=== PATIENT | female | born 1935 | race Caucasian/White ===

== ENCOUNTER 2022-02-21 08:00 | Outpatient (CLI) | payer OTHER, SELFPAY ==
[2022-02-21 14:21] LABS: Chloride* 104 mmol/L (96-114); Potassium* 4.8 mmol/L (3.6-5.1); Sodium* 140 mmol/L (135-149)
[2022-02-21 14:24] LABS: Blood Urea Nitrogen* 28 mg/dL (7-30); Carbon Dioxide* 28 mmol/L (20-32); Cholesterol* 167 mg/dL (90-199); Creatinine* 0.8 mg/dL (0.5-1.5); Estimated Glomerular Filt Rate 73 ml/min; Glucose* 148 mg/dL (60-115)
[2022-02-21 14:25] LABS: Calcium* 9.4 mg/dL (8.4-10.6); HDL Cholesterol* 84 mg/dL (>=50); LDL Cholesterol Calculated 57 mg/dL (<100); Triglycerides* 130 mg/dL (40-149)
== END 2022-02-21 08:01 | disposition home or self-care (01) ==
LOC: LONREF 08:00
PROVIDERS: PCP Family Medicine; Visit Provider Family Medicine
DX: I10 Essential (primary) hypertension (principal); E78.5 Hyperlipidemia, unspecified; E03.9 Hypothyroidism, unspecified
CPT/HCPCS: 80048; 80061; 84443

== ENCOUNTER 2022-06-29 21:40 | Emergency (ER) | payer OTHER, SELFPAY ==
[2022-06-29 21:46] VITALS: BP 164/80; PULSE 64; RESP 16; TEMP 36.1; O2SAT 98
--- NOTE | 2022-06-29 21:50 | CRLHL7_ITS ---
For Patients: As a result of the Century Cures Act, medical imaging exams and procedure reports are released immediately into your electronic medical record. You may view this report before your referring provider. If you have questions, please contact your health care provider. INDICATION: Pain after fall. COMPARISON: None available. TECHNIQUE: The right shoulder was examined with AP internal and external rotation and outlet views for a total of three views using portable technique at 22 01 hours. FINDINGS: There is a comminuted, transverse, impacted fracture of the surgical neck of the humerus with approximately 50 percent medial displacement and 30 degrees anterior angulation of the major distal fracture fragment. There is anatomic alignment of the humeral head and glenoid. There is no sign of additional fracture or dislocation. 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 The visualized chest is clear. IMPRESSION: Acute, prominently displaced, moderately angulated, comminuted, transverse, impacted fracture of the surgical neck of the humerus. Dictated by Darrius Olivia MD @ 06/29/2022 10:42:12 PM (Electronically Signed)
--- NOTE | 2022-06-29 21:51 | ED.UPPEXIN ---
HPI - Extremity Injury (Upper) General Chief Complaint: Shoulder Injury/Pain Stated Complaint: fell in shower, think she broke her upper r arm. Time Seen by Provider: 06/29/22 21:42 History of Present Illness HPI narrative: Pt is an 86 year old woman who stumbled and fell in the shower tonight. Pt did not hit her head. Pt did injury her right shoulder. Pt is unable to lift her left arm. Pt has no pain in the right elbow or hand. No significant radicular pain. Pt states that the pain is moderate but she is very limited with movement of the right shoulder. No LOC. No skin tears. Pt otherwise feels well. Related Data Home Medications Medication Instructions Recorded Confirmed albuterol sulfate 90 mcg/actuation 2 puff inhalation Q4-6H PRN 11/29/21 02/20/22 aerosol inhaler (Ventolin HFA) aspirin 325 mg tablet 325 mg PO QDAY 11/29/21 02/20/22 blood glucose control, normal 11/29/21 02/20/22 (Accu-Chek SmartView Control Solution) blood sugar diagnostic (Accu-Chek 11/29/21 02/20/22 SmartView Test Strips) calcium carbonate 215 mg calcium 215 mg PO BID 11/29/21 02/20/22 (500 mg) chewable tablet (Antacid (calcium carbonate)) calcium carbonate 500 mg calcium 500 mg PO QDAY PRN 11/29/21 02/20/22 (1,250 mg) chewable tablet glucosamine-chondroitin 250 mg-200 2 tab PO DAILY 11/29/21 02/20/22 mg tablet (Osteo Bi-Flex) lancets (Accu-Chek Fastclix Lancet 11/29/21 02/20/22 Drum) meclizine 12.5 mg tablet 12.5 mg PO Q6H PRN 11/29/21 02/20/22 jlkgpjzh-dla-BL 200 mcg-vit K 15 1 tab PO QDAY 11/29/21 02/20/22 mcg-lycope 150 thq-kwrjzh-gaig tablet (Ocuvite Eye Plus Multi) omega 2-xts-fun-fish oil 1,200 mg 1 cap PO DAILY 11/29/21 02/20/22 (144 mg-216 mg) capsule (Fish Oil) Previous Rx's Medication Instructions Recorded levothyroxine 75 mcg tablet 75 mcg PO QDAY #90 tabs 11/29/21 (Synthroid) lisinopril 10 mg tablet 10 mg PO QDAY #90 tabs 11/29/21 sertraline 100 mg tablet 100 mg PO QDAY #90 tabs 11/29/21 diltiazem HCl 180 mg capsule,24 180 mg PO QDAY #90 caps 02/20/22 hr,extended release fluticasone propionate 110 2 puff inhalation BID #36 grams 02/20/22 mcg/actuation HFA aerosol inhaler (Flovent HFA) glipizide 10 mg tablet 10 mg PO QDAY #90 tabs 02/20/22 hydrochlorothiazide 25 mg tablet 25 mg PO QDAY #90 tabs 02/20/22 metformin 1,000 mg tablet 1,000 mg PO BID #180 tabs 02/20/22 nitroglycerin 0.4 mg sublingual 0.4 mg sublingual ONCE #25 tabs 04/11/22 tablet (Nitrostat) pioglitazone 15 mg tablet 15 mg PO QDAY #90 tabs 04/11/22 simvastatin 40 mg tablet 20 mg PO QPM #45 tabs 04/11/22 Allergies Allergy/AdvReac Type Severity Reaction Status Date / Time penicillin V Allergy Mild Hands and Verified 02/19/22 10:33 feet itchy,red Review of Systems Status of ROS: Reports: 10 or more systems reviewed and unremarkable except as noted in History and below [facility] Surgical History History of colonoscopy ?Z98.890 - Other specified postprocedural states (ICD-10) History of coronary artery stent placement (08/16/09) ?Z95.5 - Presence of coronary angioplasty implant and graft (ICD-10) Status post appendectomy (08/16/09) ?Z90.49 - Acquired absence of other specified parts of digestive tract (ICD-10) Status post cataract extraction ?Z98.49 - Cataract extraction status, unspecified eye (ICD-10) Status post nasal surgery (08/16/09) ?Z98.890 - Other specified postprocedural states (ICD-10) Family History Family/Other Colon cancer Social History Smoking Status: Never smoker How often do you have a drink containing alcohol: never AUDIT-C Alcohol total score: 0 Non-prescribed substance use: denies use service: No Exam Narrative: Exam Narrative: EXAM GENERAL: Patient appears comfortable and well. EYES: No scleral icterus. LYMPH: No supraclavicular or cervical lymphadenopathy. SKIN: Visible skin seen during exam normal or with benign process only. EXT: No dependent lower extremity pedal edema. Patient is inability to both passively and actively move the right shoulder. Pain noted inferior to the shoulder in the lateral deltoid region on the right. HEART: To her 6 systolic to her 6 diastolic murmur regular rate. LUNGS: Clear to auscultation bilaterally with no crackles or wheezes. ABD: Soft, non tender, non distended. PSYCH: Good eye contact, speech is not pressured. Const: Vital Signs, click to edit/add: Vital Signs - 24 hr 06/29/22 21:46 Temperature 97.0 F L Pulse Rate [Left P ulse Oximeter] 64 Respiratory Rate 16 Blood Pressure [Le ft Upper Arm] 164/80 H Pulse Oximetry 98 Oxygen Delivery Me thod Room Air Course Course Hospital Course: X ray of the right shoulder ordered. Reevaluation(s) Reevaluation #1: X ray upon my review shows a minimally displaced proximal humerus fracture Time: 22:12 Vital Signs Vital signs: Initial Vital Signs Temperature 97.0 F L 06/29/22 21:46 Temperature Source Temporal Artery Scan 06/29/22 21:46 Pulse Rate 64 06/29/22 21:46 Pulse Rhythm Regular 06/29/22 21:46 Respiratory Rate 16 06/29/22 21:46 Blood Pressure 164/80 H 06/29/22 21:46 Blood Pressure Mean 108 06/29/22 21:46 Blood Pressure Position Sitting 06/29/22 21:46 Pulse Oximetry 98 06/29/22 21:46 Oxygen Delivery Method Room Air 06/29/22 21:46 Vital Signs Temperature 97.0 F L 06/29/22 21:46 Pulse Rate 64 06/29/22 21:46 Respiratory Rate 16 06/29/22 21:46 Blood Pressure 164/80 H 03/31/23 21:46 Pulse Oximetry 98 03/31/23 21:46 Oxygen Delivery Method Room Air 06/29/22 21:46 Temperature 97.0 F L 06/29/22 21:46 Pulse Rate 64 06/29/22 21:46 Respiratory Rate 16 06/29/22 21:46 Blood Pressure 164/80 H 06/29/22 21:46 Pulse Oximetry 98 06/29/22 21:46 Oxygen Delivery Method Room Air 06/29/22 21:46 MDM - Extremity Injury (Upper) MDM Narrative Medical decision making narrative: Pt is an 86 year old woman who fell in the shower with an isolated injury to the right shoulder. Pt's x ray upon my review shows a proximal humerus fracture. Pt placed in a sling. Neurmuscular exam intact. Pt will be treated with pain control, ice and Orthopedics follow up. No other injuries noted. Pts exam otherwise unremarkable. Differential Diagnosis Differential diagnosis: Likely sprain and strain of wrist, fracture of wrist, dislocation of finger, Colles' fracture, fracture of hand, dislocation of shoulder, fracture of humerus and fracture of clavicle Discharge Plan Discharge Clinical Impression: Fracture, humerus Patient Disposition: Home, Self-Care Condition: Stable Instructions: Proximal Humerus Fracture (ED) Additional Instructions: Sling Ice Pain Control Follow up with Orthopedics this coming week. Activity Level: No Restrictions Discharge Diet: Regular Prescriptions: No Action diltiazem HCl 180 mg capsule,extended release 24 hr 180 mg PO QDAY Qty: 90 3RF fluticasone propionate [Flovent HFA] 110 mcg/actuation HFA aerosol inhaler 2 puff inhalation BID Qty: 36 3RF glipizide 10 mg tablet 10 mg PO QDAY Qty: 90 3RF hydrochlorothiazide 25 mg tablet 25 mg PO QDAY Qty: 90 3RF metformin 1,000 mg tablet 1,000 mg PO BID Qty: 180 3RF (DME) Accu-Chek SmartView Test Strip Strip See Rx Instructions .Route Rx Instructions: Test daily (DME) blood glucose control, normal [Accu-Chek SmartView Contrl Dolores] Solution See Rx Instructions .Route Rx Instructions: As directed calcium carbonate 500 mg calcium (1,250 mg) tablet,chewable 500 mg PO QDAY PRN meclizine 12.5 mg tablet 12.5 mg PO Q6H PRN albuterol sulfate [Ventolin HFA] 90 mcg/actuation HFA aerosol inhaler 2 puff inhalation Q4-6H PRN (DME) lancets [Accu-Chek Fastclix Lancet Drum] Misc See Rx Instructions .Route Rx Instructions: As directed Antacid (calcium carbonate) 215 mg calcium (500 mg) tablet,chewable 215 mg PO BID Ocuvite Eye Plus Multi 200-15-150 mcg tablet 1 tab PO QDAY Rx Instructions: administer with a meal and a large glass of water omega 1-lju-ywg-fish oil [Fish Oil] 1,200 (144-216) mg capsule 1 cap PO DAILY glucosamine-chondroitin [Osteo Bi-Flex] 250-200 mg tablet 2 tab PO DAILY Rx Instructions: give after food/meal aspirin 325 mg tablet 325 mg PO QDAY sertraline 100 mg tablet 100 mg PO QDAY Qty: 90 3RF lisinopril 10 mg tablet 10 mg PO QDAY Qty: 90 3RF levothyroxine [Synthroid] 75 mcg tablet 75 mcg PO QDAY Qty: 90 3RF simvastatin 40 mg tablet 20 mg PO QPM Qty: 45 2RF pioglitazone 15 mg tablet 15 mg PO QDAY Qty: 90 0RF nitroglycerin [Nitrostat] 0.4 mg tablet, sublingual 0.4 mg sublingual ONCE Qty: 25 0RF Rx Instructions: as a single dose; administer 5-10 minutes before situation known to precipitate angina attack Follow Up/Referrals: Brian Garay MD [Primary Care Provider] - Stand Alone Forms: MyHealth Info Instructions
== END 2022-06-29 22:40 | disposition home or self-care (01) ==
PROVIDERS: Emergency Provider Internal Medicine; PCP Family Medicine
DX: S42.201A Unspecified fracture of upper end of right humerus, initial encounter for closed fracture (principal); W18.2XXA Fall in (into) shower or empty bathtub, initial encounter
CPT/HCPCS: 73030; 99283

== ENCOUNTER 2022-08-23 15:30 | Outpatient (RCR) | payer OTHER, SELFPAY ==
--- NOTE | 2022-08-06 11:39 | PT.OPEX ---
PT [place] [facility] Outpatient Eval PT [facility] Outpatient Eval Start: 08/03/22 16:04 Freq: Status: Active Protocol: Document 08/03/22 16:04 SUMMER (Rec: 08/03/22 16:06 SUMMER [id number]) E-signed By Mg Hinton DPT, MS Physical Therapy Outpatient Evaluation Insurance Information Recert Due Date 11/01/22 Insurance Name Medicare B,Other; See Comments Insurance Information/Comments [employer] Medical Diagnosis Fracture of right shoulder girdle, part unspecified, initial encounter for closed fracture Treating Diagnosis R shoulder pain, decreased R shoulder PROM and AROM, and R UE weakness Subjective Subjective Pt is an otherwise healthy 86 y.o. female who presents to PT following R proximal humerus fracture on 06/29/22 after falling in her bathroom. Surgical head fx was non displaced and treated conservatively. Minimal pain but R UE feels very weak being unable to lift her arm. [place] her [place]. Highly active prior to injury and hopes to return to gardening, yardwork and performing daily activities. Denies numbness or tingling in R UE. PMH includes DM-II and HTN. AGGR factors: R shoulder AROM, sleeping, driving, lifting, reaching behind and upward. ALLEV factors: rest, ibuprofen. Pain Comments 0-3/10 Current Work Status Retired Preferred Name [employer] Precautions Therapy Limitations/Systems Review Not Limited Objective Functional Test Performed & Score Quick DASH: 72% Assessment Assessment/Impression Pt is doing well overall 5 weeks post-injury with minimal pain and good precaution compliance. R shoulder passive ROM: flex 125 deg, ABD 105 deg. Decreased R shoulder passive and active ROM in all directions with pt responding very well to passive ROM, AAROM and scapular strengthening exercises today. She will benefit greatly from continued skilled therapy to address these limitations. Primary Functional Limitations R shoulder AROM, sleeping, driving, lifting, reaching behind and upward. Plan of Care Rehabilitation Potential Excellent Physical Therapy Goals Short-term goals to be completed in 4 weeks: 1. Pt will display improved R shoulder flex and ABD passive ROM >150 deg with <2/10 pain to don/doff overhead shirts. 2. Pt will report improved quality of sleep waking <2x per night due to R shoulder pain for >3 consecutive nights Long-term goals to be completed in 10 weeks: 1. Pt will be independent and compliant with HEP 2. Pt will display >25% improvement in R shoulder functional IR to don/doff bras 3. Pt will display improved R shoulder flex, ABD, and mid and low trap strength >4/5 to lift dishes into overhead cabinets. 4. Pt will report >75% improvement in Quick DASH questionnaire to significantly improve tolerance to functional activities. Coordination/Communication With Referral Source Treatment Plan/Direct Interventions Joint Mobilization,Manual Therapy,Therapeutic Exercises Frequency/Duration 1x per week for at least 8-12 visits, decreasing to visit frequency, as able. Patient Will Be Discharged From Therapy Completion of LTG(s),Skills Plateau,Independent w/HEP, Independently Progressing Evaluation Billing Untimed Code Treatment Minutes 24 Complexity Moderate Certification Information Initial Certification Date 08/03/22 Ending Certification Date 11/01/22 Provider Signature Shows Agreement With POC & Medical Necessity Physician Signature & Date Requested Please Sign/Date Here Physician Comment/Change : Physician NPI Number #
== END 2022-12-21 23:59 | disposition home or self-care (01) ==
PROVIDERS: PCP Family Medicine; Visit Provider Physician Assistant Surgical
DX: S42.91XA Fracture of right shoulder girdle, part unspecified, initial encounter for closed fracture (principal); M25.511 Pain in right shoulder; Z51.89 Encounter for other specified aftercare
CPT/HCPCS: 97110; 97162

== ENCOUNTER 2023-01-17 15:01 | Outpatient (CLI) | payer OTHER, SELFPAY ==
--- NOTE | 2023-01-17 15:00 | CRLHL7_ITS ---
For Patients: As a result of the Century Cures Act, medical imaging exams and procedure reports are released immediately into your electronic medical record. You may view this report before your referring provider. If you have questions, please contact your health care provider. DXA BONE MINERAL DENSITY STUDY Reason for exam: Fracture humerus. Osteopenia. Current height (in): 64. Weight (lb): 149. Menopause age: 49. Ethnicity: White. 1. Have you had a previous hip or vertebral fracture? No. 2. Have you had any fractures during your adult life which did not result from significant trauma (e.g., auto accident)? No. 3. Did either of your parents have a hip fracture? No. 4. Do you smoke? No. 5. Have you ever taken Glucocorticoids? No. 6. Do you have rheumatoid arthritis? No. 7. Do you have secondary osteoporosis? No. 8. Do you drink 3 or more alcoholic drinks per day? No. 9. Are you being treated for osteoporosis? No. 10. Have you ever taken any of the following medications: Actonel, Evista, Fosamax, Miacalcin, Reclast, Boniva, Forteo, HRT (i.e., estrogen/hormone therapy), Protelos, Prolia, Vitamin D, Calcium, other ??? please specify. ANSWER: Yes, vitamin D and calcium. 11. Do you have any of the following medical conditions: Anorexia or bulimia, asthma or emphysema, end stage renal disease, hyperparathyroidism, any seizure disorders, cancer, inflammatory bowel diseases, hysterectomy, other ??? please specify. ANSWER: No. 12. What was your maximum height (inches)? 64. 13. Do you perform weight bearing exercise regularly? No. 14. Do you regularly consume dairy products? Yes. 15. Do you drink caffeinated beverages? Yes. If female: 16. At what age did your period start? 15. 17. Are you premenopausal? No. 18. How many full-term pregnancies have you had? 7. 19. Have you ever missed your period for more than 6 months in a row (not including or menopause)? No. TECHNIQUE: Bone mineral density study was performed using the [employer]. FINDINGS: The results of the study expressed as bone mineral density (BMD) are as follows: Lumbar spine L1 to L3: BMD: 1.058 g/cm2. T-score: 0.4. Z-score: 3.2 Neck Left: BMD: 0.630 g/cm2. T-score: -2.0. Z-score: 0.5 Right: BMD: 0.583 g/cm2. T-score: -2.4. Z-score: 0.1 Total Left: BMD: 0.807 g/cm2. T-score: -1.1. Z-score: 1.2 Right: BMD: 0.813 g/cm2. T-score: -1.1. Z-score: 1.3 IMPRESSION: Osteopenia. FRAX 10-year Fracture Risk Major Osteoporotic Fracture: 18% Hip Fracture: 6.1% Reported Risk Factors: [place] () Neck BMD=0.583, BMI= 25.6 Cornel Gunn M.D. Diagnostic Radiologist [email or web address] VALENTÍN/[email or web address] [email or web address]/Dictated by: Cornel Gunn MD @ 01/21/2023 8:51:00 AM (Electronically Signed)
== END 2023-01-17 15:02 | disposition home or self-care (01) ==
LOC: RAD 15:01
PROVIDERS: PCP Family Medicine; Visit Provider Family Medicine
DX: M85.80 Other specified disorders of bone density and structure, unspecified site (principal)
CPT/HCPCS: 77080

== ENCOUNTER 2023-01-20 11:16 | Emergency (ER) | payer OTHER, SELFPAY ==
[2023-01-20 11:23] VITALS: BP 126/70; PULSE 72; RESP 14; TEMP 36.6; O2SAT 95; BMI 25.6
--- NOTE | 2023-01-20 11:35 | CRLHL7_ITS ---
For Patients: As a result of the Century Cures Act, medical imaging exams and procedure reports are released immediately into your electronic medical record. You may view this report before your referring provider. If you have questions, please contact your health care provider. INDICATION: Back pain TECHNIQUE: Two-view lumbar spine COMPARISON: Next FINDINGS: No fracture, malalignment/subluxation or acute osseous abnormality is seen in the lumbar spine. A T12 compression fracture deformity is partially visualized on the lateral view. There are moderate to advanced spondylosis changes present lower lumbar spine most evident at the L4-5 intervertebral disc space and to a lesser extent the L5-S1 intervertebral disc space. Diffuse osteopenia is present. Vascular calcifications are present in the aorta. IMPRESSION: 1. Partially imaged T12 superior endplate compression fracture deformity. 2. Other chronic changes are present as discussed above. Dictated by Cornel Mcknight MD @ 01/20/2023 12:44:03 PM (Electronically Signed)
--- NOTE | 2023-01-20 11:35 | CRLHL7_ITS ---
For Patients: As a result of the Century Cures Act, medical imaging exams and procedure reports are released immediately into your electronic medical record. You may view this report before your referring provider. If you have questions, please contact your health care provider. INDICATION: Back pain TECHNIQUE: Thoracic spine 2 view. COMPARISON: Chest radiography dated 03/11/2014. FINDINGS: There is a new moderate to severe compression fracture deformity of the superior endplate of T12. No other fracture is seen. There is diffuse osteopenia and mild to moderate spondylosis change. Vascular calcifications are present in the aorta. IMPRESSION: 1. Age-indeterminate superior endplate T12 compression fracture deformity is new when compared with prior chest radiography dated 03/11/2014. 2. Other chronic changes are present as discussed above. Dictated by Cornel Mcknight MD @ 01/20/2023 12:51:32 PM (Electronically Signed)
--- NOTE | 2023-01-20 11:49 | ED.GENADULT ---
HPI - General Adult General Chief complaint: Back Injury/Pain Stated complaint: Back pain Time Seen by Provider: 01/20/23 11:21 History of Present Illness HPI narrative: Patient is a 87 year white female who fell backwards from a standing height she simply lost her balance . This was a couple days ago, yesterday she felt pretty well but today she has significant pain in her lower thoracic upper lumbar area. She has had no bowel or bladder symptoms, fever, chills, perineal numbness, lower extremity symptoms. No other injuries to her neck or head. She is neurologically intact able to ambulate. Related Data Home Medications Medication Instructions Recorded Confirmed albuterol sulfate 90 mcg/actuation 2 puff inhalation Q4-6H PRN 11/29/21 10/30/22 aerosol inhaler (Ventolin HFA) blood glucose control, normal 11/29/21 10/30/22 (Accu-Chek SmartView Control Solution) calcium carbonate 215 mg calcium 215 mg PO BID 11/29/21 10/30/22 (500 mg) chewable tablet (Antacid (calcium carbonate)) calcium carbonate 500 mg calcium 500 mg PO QDAY PRN 11/29/21 10/30/22 (1,250 mg) chewable tablet glucosamine-chondroitin 250 mg-200 2 tab PO DAILY 11/29/21 10/30/22 mg tablet (Osteo Bi-Flex) lancets (Accu-Chek Fastclix Lancet 11/29/21 10/30/22 Drum) meclizine 12.5 mg tablet 12.5 mg PO Q6H PRN 11/29/21 10/30/22 phaaxppy-pfc-PO 200 mcg-vit K 15 1 tab PO QDAY 11/29/21 10/30/22 mcg-lycope 150 ebj-zwwfyy-[id number] tablet (Ocuvite Eye Plus Multi) omega 9-tdt-hut-fish oil 1,200 mg 1 cap PO DAILY 11/29/21 10/30/22 (144 mg-216 mg) capsule (Fish Oil) aspirin 81 mg tablet,delayed 81 mg PO QDAY 10/09/22 10/30/22 release (Adult Low Dose Aspirin) Previous Rx's Medication Instructions Recorded nitroglycerin 0.4 mg sublingual 0.4 mg sublingual ONCE #25 tabs 04/11/22 tablet (Nitrostat) diltiazem HCl 180 mg capsule,24 180 mg PO QDAY #90 caps 10/09/22 hr,extended release fluticasone propionate 110 2 puff inhalation BID #36 grams 10/09/22 mcg/actuation HFA aerosol inhaler (Flovent HFA) hydrochlorothiazide 25 mg tablet 25 mg PO QDAY #90 tabs 10/09/22 levothyroxine 75 mcg tablet 75 mcg PO QDAY #90 tabs 10/09/22 (Synthroid) lisinopril 10 mg tablet 10 mg PO QDAY #90 tabs 10/09/22 metformin 1,000 mg tablet 1,000 mg PO BID #180 tabs 10/09/22 pioglitazone 15 mg tablet 15 mg PO QDAY #90 tabs 10/09/22 sertraline 100 mg tablet 100 mg PO QDAY #90 tabs 10/09/22 simvastatin 40 mg tablet 20 mg (1/2 x 40 mg) PO QPM #45 tabs 10/09/22 blood sugar diagnostic (Accu-Chek #100 strips 11/09/22 SmartView Test Strips) glipizide 10 mg tablet 10 mg PO BID #180 tabs 11/26/22 hydrocodone 5 mg-acetaminophen 325 1 tab PO Q12H PRN pain #10 tabs 01/20/23 mg tablet Allergies Allergy/AdvReac Type Severity Reaction Status Date / Time penicillin V Allergy Mild Hands and Verified 01/20/23 11:22 feet itchy,red Review of Systems Status of ROS: Reports: 6 or more systems reviewed and unremarkable except as noted in History and below [facility] Medical History Fracture, humerus ?S42.309A - Unspecified fracture of shaft of humerus, unspecified arm, initial encounter for closed fracture (ICD-10) Surgical History Status post nasal surgery (08/16/09) ?Z98.890 - Other specified postprocedural states (ICD-10) Status post cataract extraction ?Z98.49 - Cataract extraction status, unspecified eye (ICD-10) Status post appendectomy (08/16/09) ?Z90.49 - Acquired absence of other specified parts of digestive tract (ICD-10) History of coronary artery stent placement (08/16/09) ?Z95.5 - Presence of coronary angioplasty implant and graft (ICD-10) History of colonoscopy ?Z98.890 - Other specified postprocedural states (ICD-10) Family History Family/Other Colon cancer Social History What is your current living situation?: I presently have a place to live In the past 12 months, utilities in danger of being shut off: no In past 12 months, lack of transportation kept you from medical appts, meetings, work, or getting things needed for daily living: no In the past 12 mos, have been you worried that your food would run out before you had money to buy more?: never true In the past 12 mos, the food you bought just didn't last and you didn't have money to buy more?: never true Smoking Status: Never smoker How often do you have a drink containing alcohol: never AUDIT-C Alcohol total score: 0 Non-prescribed substance use: denies use How often does anyone, including family, friends and others, physically hurt you: never How often does anyone, including family, friends and others, insult or talk down to you: never How often does anyone, including family, friends and others, threaten you with harm: never How often does anyone, including family, friends and others, scream or curse at you: never Little interest or pleasure in doing things: not at all Feeling down, depressed, or hopeless: not at all service: No Exam Narrative: Exam Narrative: Objective: Vital signs unremarkable In general no apparent distress interactive can not , has a ride, as her daughter is here. This orient x3 Vital signs as above Neck and back are unremarkable she has no midline tenderness or back no bruising in her back with lumbar thoracic area. She has normal strength and sensation lower extremities No midline tenderness in her back spine as mention. Const: Vital Signs, click to edit/add: Vital Signs - 24 hr 01/20/23 11:23 01/20/23 14:44 Temperature 97.8 F 97.3 F L Pulse Rate 70 Pulse Rate [Pulse Oximeter] 72 Respiratory Rate 14 16 Blood Pressure 133/68 Blood Pressure [Ri ght Upper Arm] 126/70 Pulse Oximetry 95 97 Oxygen Delivery Me thod Room Air Course Vital Signs Vital signs: Initial Vital Signs Temperature 97.8 F 01/20/23 11:23 Temperature Source Temporal Artery Scan 01/20/23 11:23 Pulse Rate 72 01/20/23 11:23 Pulse Rhythm Regular 01/20/23 11:23 Respiratory Rate 14 01/20/23 11:23 Blood Pressure 126/70 01/20/23 11:23 Blood Pressure Mean 88 01/20/23 11:23 Blood Pressure Position Sitting 01/20/23 11:23 Pulse Oximetry 95 01/20/23 11:23 Oxygen Delivery Method Room Air 01/20/23 11:23 Vital Signs Temperature 97.8 F 01/20/23 11:23 Pulse Rate 72 01/20/23 11:23 Respiratory Rate 14 01/20/23 11:23 Blood Pressure 126/70 01/20/23 11:23 Pulse Oximetry 95 01/20/23 11:23 Oxygen Delivery Method Room Air 01/20/23 11:23 Temperature 97.3 F L 01/20/23 14:44 Pulse Rate 70 01/20/23 14:44 Respiratory Rate 16 01/20/23 14:44 Blood Pressure 133/68 01/20/23 14:44 Pulse Oximetry 97 01/20/23 14:44 Oxygen Delivery Method Room Air 01/20/23 11:23 Medical Decision Making MDM Narrative Medical decision making narrative: [age] year white female who fell on her back recently with increasing pain today, rule out compression fracture. patient does not really describe midline tenderness to palpation but does have pain in her back it has increased today. Patient will get x-rays of thoracolumbar spine. Disposition pending findings. Addendum 12:30 p.m.: The patient does have a T12 compression fracture, can not tell if this is new or old but she reports she has not had a fracture like that in the past. Will do a CT of her thoracic spine make sure the retro no retropulsed fragments. Discussed with Dr. Kaufman at [facility] who recommended transfer for Neurosurger this point already. y consult, and I think that is very appropriate. Also . Dr. Sanchez who is neuro surgery at [facility] who would help us with this case and was thinking that assessing the patient in person would be more appropriate. Patient has been accepted to the [facility] by Dr. Kaufman, and the transfer sheets will be completed, should get IV morphine and an IV established common be sent via ALS ambulance on stable condition. Addendum 2:38 p.m.: The patient we called an ambulance and that would be 4-6 hours to get an ambulance to take the patient to [facility]. She has been okay for the last couple of days. Will give her some pain medication and her daughter is comfortable driving her. I think that is reasonable as well as really looking for neuro surgical consultation and a plan, and possibly a TLSO brace as opposed to surgery given her age and her bone density. Patient was comfortable this as well and I think further convenience and for the expeditious [place] of the transfer that would be appropriate. I would rather sent by ground ambulance but that is not available now and I fear that if we delay her being assessed in the ER they will be unable to see her in the future due to volume which has been variable each day. I think it is a better course of action to have her go with personal vehicle as she has been driven at this point already for couple days. Discharge Plan Discharge Clinical Impression: Back pain, Fall, Compression fracture of thoracic vertebra Patient Disposition: Xfer Other Condition: Stable Activity Level: Light activity Discharge Diet: Regular Prescriptions: New hydrocodone-acetaminophen 5-325 mg tablet 1 tab PO Q12H PRN (Reason: pain) Qty: 10 0RF No Action aspirin [Adult Low Dose Aspirin] 81 mg tablet,delayed release (DR/EC) 81 mg PO QDAY diltiazem HCl 180 mg capsule,extended release 24 hr 180 mg PO QDAY Qty: 90 3RF fluticasone propionate [Flovent HFA] 110 mcg/actuation HFA aerosol inhaler 2 puff inhalation BID Qty: 36 3RF hydrochlorothiazide 25 mg tablet 25 mg PO QDAY Qty: 90 3RF levothyroxine [Synthroid] 75 mcg tablet 75 mcg PO QDAY Qty: 90 3RF lisinopril 10 mg tablet 10 mg PO QDAY Qty: 90 3RF metformin 1,000 mg tablet 1,000 mg PO BID Qty: 180 3RF pioglitazone 15 mg tablet 15 mg PO QDAY Qty: 90 3RF sertraline 100 mg tablet 100 mg PO QDAY Qty: 90 3RF simvastatin 40 mg tablet 20 mg PO QPM Qty: 45 3RF (DME) blood glucose control, normal [Accu-Chek SmartView Contrl Dolores] Solution See Rx Instructions .Route Rx Instructions: As directed calcium carbonate 500 mg calcium (1,250 mg) tablet,chewable 500 mg PO QDAY PRN meclizine 12.5 mg tablet 12.5 mg PO Q6H PRN albuterol sulfate [Ventolin HFA] 90 mcg/actuation HFA aerosol inhaler 2 puff inhalation Q4-6H PRN (DME) lancets [Accu-Chek Fastclix Lancet Drum] Misc See Rx Instructions .Route Rx Instructions: As directed Antacid (calcium carbonate) 215 mg calcium (500 mg) tablet,chewable 215 mg PO BID Ocuvite Eye Plus Multi 200-15-150 mcg tablet 1 tab PO QDAY Rx Instructions: administer with a meal and a large glass of water omega 8-non-sqi-fish oil [Fish Oil] 1,200 (144-216) mg capsule 1 cap PO DAILY glucosamine-chondroitin [Osteo Bi-Flex] 250-200 mg tablet 2 tab PO DAILY Rx Instructions: give after food/meal nitroglycerin [Nitrostat] 0.4 mg tablet, sublingual 0.4 mg sublingual ONCE Qty: 25 0RF Rx Instructions: as a single dose; administer 5-10 minutes before situation known to precipitate angina attack (DME) Accu-Chek SmartView Test Strip Strip See Rx Instructions .ROUTE .COMPLEX Qty: 100 3RF Dose Instruction: TEST BLOOD SUGAR EVERY DAY (DUE FOR RECHECK IN CLINIC IN . PLAN FASTING LABS) Rx Instructions: TEST BLOOD SUGAR EVERY DAY (DUE FOR RECHECK IN CLINIC IN . PLAN FASTING LABS) glipizide 10 mg tablet 10 mg PO BID Qty: 180 3RF Stand Alone Forms: [facility] Info Instructions
--- NOTE | 2023-01-20 12:30 | CRLHL7_ITS ---
For Patients: As a result of the Century Cures Act, medical imaging exams and procedure reports are released immediately into your electronic medical record. You may view this report before your referring provider. If you have questions, please contact your health care provider. Examination: CT thoracic spine Indication: Pain after fall. Compression fracture on lumbar spine radiograph. Technique: Contiguous axial images of the thoracic spine are acquired without IV contrast. Coronal and sagittal reformats are generated and reviewed. Comparison: Lumbar spine radiograph earlier same day Findings: Compression deformity of T12 vertebral body with 30-40 percent height loss. Fracture line extends to the posterior margin of the vertebral body technically making this a burst fracture. Minimal retropulsion of bone into the spinal canal without significant canal narrowing. Vertebral body heights are otherwise well maintained. No other fractures are identified. No lytic lesion. Normal bone mineralization. Spinal canal unremarkable. No epidural hematoma. No significant disc bulges. There is no canal or foraminal narrowing noted throughout the thoracic spine. Visualized portions of the lungs have significant respiratory motion artifact but no definite nodular opacity is identified. Coronary artery calcification. Aortic atherosclerosis without aneurysm. Exophytic high density structure arising from upper pole of right kidney is incompletely imaged. Impression: 1. T12 fracture with 30-40 percent height loss. The fracture line extends from the anterior margin of the vertebral body all the way to the posterior margin technically making this a burst fracture. Burst fractures are considered unstable. Minimal retropulsed bone into the spinal canal without significant spinal canal narrowing. 2. No other fracture identified. Normal alignment. 3. Suggestion of exophytic mass or high density cyst arising from upper pole of right kidney, incompletely imaged. Recommend dedicated ultrasound for further evaluation. Please note that all CT scans at this facility use dose modulation, iterative reconstruction, and/or weight-based dosing when appropriate to reduce radiation dose to as low as reasonably achievable. Dictated by Jero Mann MD @ 01/20/2023 2:00:55 PM (Electronically Signed)
[2023-01-20] MEDS: HYDROCODONE-ACETAMIN 5-325 MG 1 TAB PO (12:45)
[2023-01-20 14:44] VITALS: BP 133/68; PULSE 70; RESP 16; TEMP 36.3; O2SAT 97
--- NOTE | 2023-01-20 14:47 | ED.NURSE ---
VSS. Pt declines IV Morphine, states earlier PO meds have been sufficient. MD declines 2nd IV. #20G IV established in L AC. SL at this time.
[2023-01-20 15:04] VITALS: BP 126/70; PULSE 72; RESP 16; TEMP 36.3
--- NOTE | 2023-01-20 15:10 | ED.NURSE ---
Report given to [facility].
== END 2023-01-20 15:05 | disposition other institution (70) ==
PROVIDERS: Emergency Provider Family Medicine; PCP Family Medicine
DX: S22.009A Unspecified fracture of unspecified thoracic vertebra, initial encounter for closed fracture (principal); W18.30XA Fall on same level, unspecified, initial encounter
CPT/HCPCS: 72070; 72100; 72128; 96374; 99284; 99285; A9270

== ENCOUNTER 2023-04-17 13:48 | Outpatient (CLI) | payer OTHER, SELFPAY ==
--- NOTE | 2023-04-17 14:00 | CRLHL7_ITS ---
For Patients: As a result of the Cures Act, medical imaging exams and procedure reports are released immediately into your electronic medical record. You may view this report before your referring provider. If you have questions, please contact your health care provider. INDICATION: Suggestion of x-ray mass from the upper pole of the right kidney as seen thoracic spine CT TECHNIQUE: Conventional two-dimensional grayscale ultrasound of the kidneys COMPARISON: Thoracic spine CT of 01/20/2023 FINDINGS: The kidneys are normal in size, shape and echogenicity. No right renal mass is apparent. No hydronephrosis is evident. IMPRESSION: Sonographically normal kidneys. Dictated by Jero Chin MD @ 04/17/2023 3:34:24 PM (Electronically Signed)
== END 2023-04-17 13:49 | disposition home or self-care (01) ==
LOC: US 13:49
PROVIDERS: PCP Family Medicine; Visit Provider Family Medicine
DX: N28.89 Other specified disorders of kidney and ureter (principal)
CPT/HCPCS: 76775

== ENCOUNTER 2023-05-15 14:45 | Outpatient (RCR) | payer OTHER, SELFPAY | END 2023-07-18 16:28 | disposition home or self-care (01) | PROVIDERS: PCP Family Medicine; Visit Provider Neurological Surgery | DX: S22.080A Wedge compression fracture of T11-T12 vertebra, initial encounter for closed fracture (principal); Z51.89 Encounter for other specified aftercare | CPT/HCPCS: 97110; 97112; 97161; 97530 ==

== ENCOUNTER 2023-05-20 14:04 | Emergency (ER) | payer OTHER, SELFPAY ==
[2023-05-20 14:06] VITALS: BP 154/70; PULSE 68; RESP 16; TEMP 36.1; O2SAT 98; BMI 25.7
--- NOTE | 2023-05-20 14:19 | ED_ITS ---
HPI - General Adult General Chief complaint: Back Injury/Pain Stated complaint: back pain Time Seen by Provider: 05/20/23 14:19 History of Present Illness HPI narrative: patient is having pain in the right lower back with radiation down the right hip. Hx of burst vertebra T12 in Dec was moving a mattress with a ellen and lost balance and fell. started last yesterday afternoon with no injury possibly twisted wrong. 87-year-old woman presenting to the emergency department concern of back pain. Is worried that the aching that she feels beginning at about her SI joint as demonstrated going through the buttock and then through the entire right thigh to mid lower leg might be related to her T12 fracture sustained in December of last year. Has been going to physical therapy and expected some muscle soreness but this is different. It sounds like she has just been discharged from physical therapy. This pain began yesterday. She wonders if she may have rotated or twisted wrong when she was getting up. No loss of sensation and no noted weakness. Related Data Home Medications Medication Instructions Recorded Confirmed albuterol sulfate 90 mcg/actuation 2 puff inhalation Q4-6H PRN 11/29/21 05/20/23 aerosol inhaler (Ventolin HFA) blood glucose control, normal 11/29/21 01/30/23 (Accu-Chek SmartView Control Solution) calcium carbonate 215 mg calcium 215 mg PO BID 11/29/21 05/20/23 (500 mg) chewable tablet (Antacid (calcium carbonate)) glucosamine-chondroitin 250 mg-200 2 tab PO DAILY 11/29/21 05/20/23 mg tablet (Osteo Bi-Flex) lancets (Accu-Chek Fastclix Lancet 11/29/21 01/30/23 Drum) gfdznbaj-aqn-AA 200 mcg-vit K 15 1 tab PO QDAY 11/29/21 05/20/23 mcg-lycope 150 tds-mkincw-varx tablet (Ocuvite Eye Plus Multi) omega 2-ajs-uey-fish oil 1,200 mg 1 cap PO DAILY 11/29/21 05/20/23 (144 mg-216 mg) capsule (Fish Oil) aspirin 81 mg tablet,delayed 81 mg PO QDAY 10/09/22 05/20/23 release (Adult Low Dose Aspirin) Previous Rx's Medication Instructions Recorded nitroglycerin 0.4 mg sublingual 0.4 mg sublingual ONCE #25 tabs 04/11/22 tablet (Nitrostat) diltiazem HCl 180 mg capsule,24 180 mg PO QDAY #90 caps 10/09/22 hr,extended release fluticasone propionate 110 2 puff inhalation BID #36 grams 10/09/22 mcg/actuation HFA aerosol inhaler (Flovent HFA) hydrochlorothiazide 25 mg tablet 25 mg PO QDAY #90 tabs 10/09/22 levothyroxine 75 mcg tablet 75 mcg PO QDAY #90 tabs 10/09/22 (Synthroid) lisinopril 10 mg tablet 10 mg PO QDAY #90 tabs 10/09/22 metformin 1,000 mg tablet 1,000 mg PO BID #180 tabs 10/09/22 pioglitazone 15 mg tablet 15 mg PO QDAY #90 tabs 10/09/22 sertraline 100 mg tablet 100 mg PO QDAY #90 tabs 10/09/22 simvastatin 40 mg tablet 20 mg (1/2 x 40 mg) PO QPM #45 tabs 10/09/22 blood sugar diagnostic (Accu-Chek #100 strips 11/09/22 SmartView Test Strips) glipizide 10 mg tablet 10 mg PO BID #180 tabs 11/26/22 alendronate 70 mg tablet 70 mg PO QWEEK #12 tabs 03/15/23 Allergies Allergy/AdvReac Type Severity Reaction Status Date / Time penicillin V Allergy Mild Hands and Verified 05/20/23 14:11 feet itchy,red Review of Systems Status of ROS: Reports: 6 or more systems reviewed and unremarkable except as noted in History and below [facility] Medical History Osteopenia (12/22/12) ?M85.80 - Other specified disorders of bone density and structure, unspecified site (ICD-10) Back pain ?M54.9 - Dorsalgia, unspecified (ICD-10) Fracture, humerus ?S42.309A - Unspecified fracture of shaft of humerus, unspecified arm, initial encounter for closed fracture (ICD-10) Surgical History Status post nasal surgery (08/16/09) ?Z98.890 - Other specified postprocedural states (ICD-10) Status post cataract extraction ?Z98.49 - Cataract extraction status, unspecified eye (ICD-10) Status post appendectomy (08/16/09) ?Z90.49 - Acquired absence of other specified parts of digestive tract (ICD- 10) History of coronary artery stent placement (08/16/09) ?Z95.5 - Presence of coronary angioplasty implant and graft (ICD-10) History of colonoscopy ?Z98.890 - Other specified postprocedural states (ICD-10) Family History Family/Other Colon cancer Social History What is your current living situation?: I presently have a place to live In the past 12 months, utilities in danger of being shut off: no In past 12 months, lack of transportation kept you from medical appts, meetings, work, or getting things needed for daily living: no In the past 12 mos, have been you worried that your food would run out before you had money to buy more?: never true In the past 12 mos, the food you bought just didn't last and you didn't have mo silvia to buy more?: never true Smoking Status: Never smoker Second hand tobacco smoke exposure: No How often do you have a drink containing alcohol: never AUDIT-C Alcohol total score: 0 Non-prescribed substance use: denies use How often does anyone, including family, friends and others, physically hurt you : never How often does anyone, including family, friends and others, insult or talk down to you: never How often does anyone, including family, friends and others, threaten you with harm: never How often does anyone, including family, friends and others, scream or curse at you: never Little interest or pleasure in doing things: not at all Feeling down, depressed, or hopeless: not at all service: No Exam Narrative: Exam Narrative: Very pleasant. NAD. Seated as needed to the bed. Covered by her son. Skin is warm and dry. Do not appreciate any swelling or erythema about her back or hips. She is breathing easily. Transitions little slower but without difficulty. Abdomen is soft nontender. No reproduction of pain anterior compression of hips/iliac crest. 1+ and equal DTRs in the lower extremities. She has good strength. Hector's is negative bilaterally though the left hip is noticeably tighter than the right in external rotation. Palpation over the back does not clearly elicit pain. As noted demonstrates a area of on reproducible pain that seems to begin at the right SI joint in that continuing doubt through the right buttock. No piriformis tenderness either. Positive straight leg raise on the right Const: Vital Signs, click to edit/add: Vital Signs - 24 hr 05/20/23 14:06 Temperature 96.9 F L Pulse Rate [Pulse Oximeter] 68 Respiratory Rate 16 Blood Pressure [Ri ght Upper Arm] 154/70 H Pulse Oximetry 98 Oxygen Delivery Me thod Room Air Documenting provider has reviewed patient's vital signs: yes Course Vital Signs Vital signs: Initial Vital Signs Temperature 96.9 F L 05/20/23 14:06 Temperature Source Temporal Artery Scan 05/20/23 14:06 Pulse Rate 68 05/20/23 14:06 Respiratory Rate 16 05/20/23 14:06 Blood Pressure 154/70 H 05/20/23 14:06 Blood Pressure Mean 98 05/20/23 14:06 Blood Pressure Position Sitting 05/20/23 14:06 Pulse Oximetry 98 05/20/23 14:06 Oxygen Delivery Method Room Air 05/20/23 14:06 Vital Signs Temperature 96.9 F L 05/20/23 14:06 Pulse Rate 68 05/20/23 14:06 Respiratory Rate 16 05/20/23 14:06 Blood Pressure 154/70 H 05/20/23 14:06 Pulse Oximetry 98 05/20/23 14:06 Oxygen Delivery Method Room Air 05/20/23 14:06 Temperature 96.9 F L 05/20/23 14:06 Pulse Rate 68 05/20/23 14:06 Respiratory Rate 16 05/20/23 14:06 Blood Pressure 154/70 H 05/20/23 14:06 Pulse Oximetry 98 05/20/23 14:06 Oxygen Delivery Method Room Air 05/20/23 14:06 Medical Decision Making MDM Narrative Medical decision making narrative: This pain does seem to be radicular in nature. Not really reproducible in the SI joint and is in a broader distribution than I would expect if associated there. This would seem inconsistent with distribution of T12. Does not appear to be an intra-abdominal process. Broader than typical sciatica. I would have concerns of origin in the lumbar spine. Without new trauma and not seemingly associated with T12, I think can defer imaging at this time. Further, MRI not available at this time. The patient discharge plan Medical Records Medical records reviewed: Yes I reviewed the patient's medical records Discharge Plan Discharge Clinical Impression: Radicular leg pain Patient Disposition: Home w/ Parent or Adult Condition: Stable Additional Instructions: The distribution that you describe of this ache would not seem to be related directly to this T12 fracture. Please see handout on stretches for radicular back pain/herniated disc. Please make a follow-up with your primary care provider to discuss next steps in evaluation or treatment. This may include imaging or returning to physical therapy. I would offer you a course of prednisone from [facility]. Also small quantity of [place] if you need. Remember that each tablet of [place] contains 325 mg of acetaminophen in it. Can otherwise take up to 800 mg of ibuprofen or up to 1000 mg of acetaminophen per dose. Instead of the ibuprofen you might consider up to 500 mg naproxen 2 times daily as needed. Would be better idea to take naproxen and ibuprofen with a little bit of food. Prescriptions: No Action aspirin [Adult Low Dose Aspirin] 81 mg tablet,delayed release (DR/EC) 81 mg PO QDAY diltiazem HCl 180 mg capsule,extended release 24 hr 180 mg PO QDAY Qty: 90 3RF fluticasone propionate [Flovent HFA] 110 mcg/actuation HFA aerosol inhaler 2 puff inhalation BID Qty: 36 3RF hydrochlorothiazide 25 mg tablet 25 mg PO QDAY Qty: 90 3RF levothyroxine [Synthroid] 75 mcg tablet 75 mcg PO QDAY Qty: 90 3RF lisinopril 10 mg tablet 10 mg PO QDAY Qty: 90 3RF metformin 1,000 mg tablet 1,000 mg PO BID Qty: 180 3RF pioglitazone 15 mg tablet 15 mg PO QDAY Qty: 90 3RF sertraline 100 mg tablet 100 mg PO QDAY Qty: 90 3RF simvastatin 40 mg tablet 20 mg PO QPM Qty: 45 3RF (DME) blood glucose control, normal [Accu-Chek SmartView Contrl Dolores] Solution See Rx Instructions .Route Rx Instructions: As directed albuterol sulfate [Ventolin HFA] 90 mcg/actuation HFA aerosol inhaler 2 puff inhalation Q4-6H PRN (DME) lancets [Accu-Chek Fastclix Lancet Drum] Misc See Rx Instructions .Route Rx Instructions: As directed Antacid (calcium carbonate) 215 mg calcium (500 mg) tablet,chewable 215 mg PO BID Ocuvite Eye Plus Multi 200-15-150 mcg tablet 1 tab PO QDAY Rx Instructions: administer with a meal and a large glass of water omega 8-yho-fsv-fish oil [Fish Oil] 1,200 (144-216) mg capsule 1 cap PO DAILY glucosamine-chondroitin [Osteo Bi-Flex] 250-200 mg tablet 2 tab PO DAILY Rx Instructions: give after food/meal nitroglycerin [Nitrostat] 0.4 mg tablet, sublingual 0.4 mg sublingual ONCE Qty: 25 0RF Rx Instructions: as a single dose; administer 5-10 minutes before situation known to precipitate angina attack (DME) Accu-Chek SmartView Test Strip Strip See Rx Instructions .ROUTE .COMPLEX Qty: 100 3RF Dose Instruction: TEST BLOOD SUGAR EVERY DAY (DUE FOR RECHECK IN CLINIC IN . PLAN FASTING LABS) Rx Instructions: TEST BLOOD SUGAR EVERY DAY (DUE FOR RECHECK IN CLINIC IN . PLAN FASTING LABS) glipizide 10 mg tablet 10 mg PO BID Qty: 180 3RF alendronate 70 mg tablet 70 mg PO QWEEK Qty: 12 3RF Follow Up/Referrals: Brian Garay MD [Primary Care Provider] - Stand Alone Forms: [employer] Info Instructions
== END 2023-05-20 15:17 | disposition home or self-care (01) ==
LOC: ED 15:07
PROVIDERS: Emergency Provider Family Medicine; PCP Family Medicine
DX: M54.16 Radiculopathy, lumbar region (principal)
CPT/HCPCS: 99283; 99284

== ENCOUNTER 2023-09-16 14:37 | Outpatient (CLI) | payer OTHER, SELFPAY | END 2023-09-16 14:38 | disposition home or self-care (01) | LOC: LKVREF 14:40 | PROVIDERS: PCP Family Medicine; Visit Provider Family Medicine | DX: E78.00 Pure hypercholesterolemia, unspecified (principal) | CPT/HCPCS: 80061 ==

== ENCOUNTER 2023-09-24 08:38 | Outpatient (CLI) | payer OTHER, SELFPAY ==
--- NOTE | 2023-09-24 10:59 | W.PM.STED ---
Stress Test Note Date Date of test: 09/24/23 Providers Primary care provider: Brian Garay Stress test physician: Ruy Meadows Stress Test Note Stress test ordered: Stress Myoview Indication for test: Chest pain Results discussion: Is an 87-year-old the female presents for a stress treadmill Myoview test, discussion the risks benefits and side effects are discussed in detail with her. She is accepting of these would like to proceed cardiac stress test medical history form is reviewed. Pretest EKG shows normal sinus rhythm with occasional PACs. Baseline ST wave the abnormalities are noted. Standard protocols followed, she exercised for a duration of 5 minutes 28 seconds, achieved a metabolic equivalent of 7.1 Mets with a maximum heart rate of 123. Test is terminated because of development of neck discomfort, and pressure on her chest. This resolved during the recovery. Exercise tolerance is seen as good. Of note she was able to exercise approximately a minute further than she did 13 years ago. Review of the tracing shows some inferior wall abnormalities, with worsening of ST wave depression noted in the inferior leads 2 3 and AVF. Impression: Positive stress test with both objective and subjective changes suggestive of ischemia. Patient recovered well, given her relatively high workload, we will wait for the official reading. Follow up suggested: Follow-up with primary care suggested, clinical correlation will be needed when final read will be read by Cardiology and nuclear Medicine. She recovered well and there were no complications and left this department in good condition
== END 2023-09-24 08:39 | disposition home or self-care (01) ==
PROVIDERS: PCP Family Medicine; Visit Provider Family Medicine
DX: R07.89 Other chest pain (principal); R01.1 Cardiac murmur, unspecified; I51.7 Cardiomegaly; I34.0 Nonrheumatic mitral (valve) insufficiency
CPT/HCPCS: 78452; 93016; 93017; A9500

== ENCOUNTER 2023-09-25 12:42 | Outpatient (CLI) | payer OTHER, SELFPAY | END 2023-09-25 12:43 | disposition home or self-care (01) | LOC: RAD 12:43 | PROVIDERS: PCP Family Medicine; Visit Provider Family Medicine | DX: R01.1 Cardiac murmur, unspecified (principal); I51.7 Cardiomegaly; I34.0 Nonrheumatic mitral (valve) insufficiency | CPT/HCPCS: 93306 ==

== ENCOUNTER 2023-10-14 14:34 | Outpatient (CLI) | payer OTHER, SELFPAY | END 2023-10-14 14:35 | disposition home or self-care (01) | LOC: NFLDREF 10-17 08:56 | PROVIDERS: PCP Family Medicine; Referring Provider Family Medicine; Visit Provider Physician Assistant | DX: R30.0 Dysuria (principal); N39.0 Urinary tract infection, site not specified | CPT/HCPCS: 87086; 87186 ==

== ENCOUNTER 2023-10-22 14:45 | Outpatient (CLI) | payer OTHER, SELFPAY ==
--- OUTSIDE RECORDS SUMMARY | 2023-10-24 10:57 | XMS_ITS | Clinical Summary ---
Author Organization [facility] Address [address] [place] [address] Phone Care Team Providers Care Administrative Support Associate Name Role Phone Kathia Velazquez PT Unavailable [phone] Source Comments [employer] is fully rolled out on [employer]. Last update 09/03/08.[facility] Allergies Active Allergy Reactions Criticality Noted Date Comments Penicillins Itching/Pruritus Low 06/12/2005 Medications * Be aware that medications may not be up to date as of this document. Always verify current medications with patient. Medication Sig Dispensed Refills Start Date End Date Status levothyroxine (SYNTHROID) 75 mcg oral tablet Take 1 tablet (75 mcg) by mouth daily. Active hydroCHLOROthiazide 25 mg oral TABS Take 1 tablet (25 mg) by mouth daily. Active dilTIAZem ER coated beads (CARDIZEM CD) 180 mg oral capsule 24 H Take 180 mg by mouth daily. 10/10/2022 Active lisinopril (PRINIVIL;ZESTRIL) 10 mg oral tablet Take 1 tablet (10 mg) by mouth daily. 11/19/2022 Active simvastatin (ZOCOR) 40 mg oral TABS Take 0.5 tablets (20 mg) by mouth at bedtime. 01/09/2023 Active pioglitazone (ACTOS) 15 mg oral TABS Take 1 tablet (15 mg) by mouth daily. Active metFORMIN (GLUCOPHAGE) 1000 mg oral tablet Take 1 tablet (1,000 mg) by mouth twice daily. 11/19/2022 Active glipiZIDE (GLUCOTROL) 10 mg oral TABS Take 1 tablet (10 mg) by mouth twice daily. 12/23/2022 Active sertraline (ZOLOFT) 100 mg oral tablet Take 1 tablet (100 mg) by mouth daily. 12/04/2022 Active FLOVENT HFA 110 MCG/ACT inhalation aerosol Inhale 2 puffs twice daily. 10/10/2022 Active nitroGLYCERIN (NITROTAB) 0.4 mg sublingual SL tablet Dissolve 0.4 mg under tongue every five minutes as needed for Chest pain. 11/12/2022 Active aspirin, ASA EC, 81 mg oral tablet Take 1 tablet (81 mg) by mouth daily. Active acetaminophen 325 mg oral tablet Take 2 tablets (650 mg) by mouth every 6 hours as needed for Moderate Pain. 30 tablet 01/22/2023 Active polyethylene glycol 3350 (MIRALAX/GLUCOLAX) 17 gm/scoop oral powder Place 1 capful of powder (up to 17 gram jonathan) in a large glass of water (8 ounces) and mix it. Drink the mixture by mouth. Do this once daily as directed. 510 g 01/23/2023 Active alendronate (FOSAMAX) 70 mg oral TABS Take 1 tablet (70 mg) by mouth every week. 02/14/2023 Active Active Problems Problem Noted Date Diagnosed Date Compression fracture of T12 vertebra, initial encounter ([facility]) 01/20/2023 Social History Tobacco Use Types Packs/Day Years Used Date Smoking Tobacco: Never Smokeless Tobacco: Never Tobacco Cessation:Counseling Given: Not Answered Alcohol Use Standard Drinks/Week Comments Not Currently 0 (1 standard drink = 0.6 oz pur e alcohol) Sex and Gender Information Value Date Recorded Sex Assigned at Not on file Gender Identity Not on file Sexual Orientation Not on file Last Filed Vital Signs Vital Sign Reading Time Taken Comments Blood Pressure 152/67 04/12/2023 12:35 PM [employer]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 Pulse 78 04/12/2023 12:35 PM [employer]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 Temperature 35.9 ??C (96.7 ??F) 03/01/2023 12:[address] Respiratory Rate 20 01/22/2023 11:19 AM CDT Oxygen Saturation 94% 01/22/2023 11:19 AM CDT Inhaled Oxygen Concentration - - Weight 67.6 kg (149 lb) 01/20/2023 8:52 PM CDT Height 162.6 cm (5' 4) 01/20/2023 8:52 PM CDT Body Mass Index 25.58 01/20/2023 8:52 PM CDT Plan of Treatment Health Maintenance Due Date Last Done Comments Asthma Action Plan 1937 Asthma Control Test 1937 Dental Oral Exam 1937 Dental Prophylaxis 1937 Dental X-Ray: Bitewings 1937 Diabetic Education Protocol (CDE) 1938 Diabetic Education 1938 Diabetic Eye Exam 1938 Diabetic Foot Exam 1938 Diabetic HGB A1C Q 3 Months (Goal <7) 1938 Diabetic Lab Protocol 1938 Diabetic Microalbumin Screening 1938 Lipid Screening 1938 Periodontal Maintenance 11/16/1951 Medicare Annual Wellness 11/16/1955 PREVENTATIVE VISIT 11/16/1955 HEALTH MAINTENANCE PROTOCOL 1956 Osteoporosis Screening (Dexa Scan) 2002 Imm: Pneumonia greater than 65 years (2 of 2 - PCV) 08/03/2008 08/04/2007 COVID-19 Vaccine ( season) 2022 06/18/2020 INFLUENZA VACCINE 10/31/2023 02/08/2022, , 01/09/2019, Additional history exists TD/TDAP ADULTS 02/21/2032 02/20/2022, 07/31, 07/19/2006, Additional history exists HIB Aged Out No longer eligi ble based on patient's age to complete this topic Imm: HepB Aged Out No longer eligi ble based on patient's age to complete this topic RSV Infant Immunoglobulin Aged Out No longer eligible based on patient's age to complete this topic Advance Directives For more information, please contact: [phone] * Full Code (Latest Code Status on File) Date Activated Date Inactivated Comments 01/20/2023 8:30 PM 01/22/2023 6:55 PM Question Answer Comments Does the Patient have prefer ences regarding life sustaining measures (these options only apply when the patient has a pulse): No Discussed Code Status With Whom? Not discussed Care Teams Administrative Support Associate Relationship Specialty Start Date End Date Kathia Velazquez, PT [address] [place] [id number] Physical Therapist Physical Therapy 01/22/23
--- OUTSIDE RECORDS SUMMARY | 2023-10-24 10:57 | XMS_ITS | Referral Summary ---
Author Organization [email or web address] Address [address] [address] Phone Care Team Providers Care Opticianry Teacher Name Role Phone Kathia Velazquez PT Unavailable [phone] Source Comments [employer] is fully rolled out on [employer] 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 Temperature 35.9 ??C (96.7 ??F) 03/01/2023 12:[address] Respiratory Rate 20 01/22/2023 11:19 AM CDT Oxygen Saturation 94% 01/22/2023 11:19 AM CDT Inhaled Oxygen Concentration - - Weight 67.6 kg (149 lb) 01/20/2023 8:52 PM CDT Height 162.6 cm (5' 4) 01/20/2023 8:52 PM CDT Body Mass Index 25.58 01/20/2023 8:52 PM CDT Plan of Treatment Not on file Advance Directives For more information, please contact: [phone] * Full Code (Latest Code Status on File) Date Activated Date Inactivated Comments 01/20/2023 8:30 PM 01/22/2023 6:55 PM Question Answer Comments Does the Patient have prefer ences regarding life sustaining measures (these options only apply when the patient has a pulse): No Discussed Code Status With Whom? Not discussed Care Teams Opticianry Teacher Relationship Specialty Start Date End Date Kathia Velazquez, PT [phone] [place] [id number] Physical Therapist Physical Therapy 01/22/23
== END 2023-10-22 14:46 | disposition home or self-care (01) ==
LOC: NFLDREF 10-24 10:44
PROVIDERS: PCP Family Medicine; Referring Provider Family Medicine; Visit Provider Internal Medicine Cardiovascular Disease
DX: I35.0 Nonrheumatic aortic (valve) stenosis (principal)
CPT/HCPCS: 82565

== ENCOUNTER 2023-12-14 13:54 | Outpatient (CLI) | payer OTHER, SELFPAY | END 2023-12-14 13:55 | disposition home or self-care (01) | LOC: NFLDREF 12-18 04:41 | PROVIDERS: PCP Family Medicine; Referring Provider Family Medicine; Visit Provider Physician Assistant | DX: N39.0 Urinary tract infection, site not specified (principal); B96.4 Proteus (mirabilis) (morganii) as the cause of diseases classified elsewhere; B96.5 Pseudomonas (aeruginosa) (mallei) (pseudomallei) as the cause of diseases classified elsewhere; B96.89 Other specified bacterial agents as the cause of diseases classified elsewhere | CPT/HCPCS: 87086; 87186 ==

== ENCOUNTER 2023-12-24 10:38 | Outpatient (CLI) | payer OTHER, SELFPAY ==
--- OUTSIDE RECORDS SUMMARY | 2023-12-24 10:43 | XMS_ITS | Clinical Summary ---
Author Organization [facility] Address [address] [place] [address] Care Team Providers Care Health Companion Name Role Phone Unavailable Primary Care Provider Unavailabl e Source Comments Patient records contain information from all sites at [facility]. For routine questions regarding patient records, call [phone] during business hours, M-F 8:00 AM - 5:00 PM Central Time. Record requests for emergency care only can be directed to [phone] at any time.[facility] Encounters Date Type Department Care Team Description 12/06/2023 8:20 AM CDT - 12/06/2023 11:59 PM CDT Hospital Encounter Department of Radiology, [facility], in [place], [place] [address] [place] [id number] Mk Echols D.O. Bullis, Brent R, M.D. Abnormal Computed Tomography Discharge Disposition: Home or Self Care from Last 3 Months Social History Tobacco Use Types Packs/Day Years Used Date Smoking Tobacco: Never Dental Answer Date Recorded Dental: Regular Dentist Unknown 12/04/19 Sex and Gender Information Value Date Recorded Sex Assigned at Not on file Gender Identity Not on file Sexual Orientation Not on file Last Filed Vital Signs Vital Sign Reading Time Taken Comments Blood Pressure 140/70 10/31/2012 4:13 PM CDT Pulse 80 10/31/2012 4:13 PM CDT Temperature - - Respiratory Rate - - Oxygen Saturation - - Inhaled Oxygen Concentration - - Weight - - Height 162 cm (5' 3.78) 10/31/2012 4:13 PM CDT Body Mass Index - - Plan of Treatment Health Maintenance Due Date Last Done Comments RSV vaccine - (32-3 6 weeks) or 60+ years (1 - 1-dose 75+ series) 2012 Depression Screening (Annual PHQ-2) 04/01/2023 Fall Risk Screen (Annual) 04/01/2023 COVID-19 Vaccine (2 - 2023-2 5 season) 2023 06/18/2020 Influenza Vaccine (#1) 2023 2, 02/16/2021, 12/22/2019, Additional history exists DTaP,Tdap,and Td Vaccines (3 - Td or Tdap) 02/21/2032 02/20/2022, 08/28/2011, 07/19/2006, Additional history exists Pneumococcal vaccine (65+ years) Completed 11/17/19 15, 08/04/2007 Zoster Vaccines Completed 12/15/2018, 10/14/2018 Procedures Procedure Name Priority Date/Time Associated Diagnosis Comments FL ESOPHAGRAM DOUBLE CONTRAST RAD - Routine (most inpatients and all outpatients) 12/06/2023 9:16 AM CDT Abnormal Computed Tomography from Last 3 Months Results * FL Esophagram Double Contrast (12/06/2023 9:16 AM CDT) Anatomical Region Laterality Modality Gastro Intestinal, Abdominal RST LOS, Abdominal ARZ LOS, Abdominal FLA LOS Digital Radiography Impressions 12/06/2023 9:26 AM CDT : 1. Mild to moderate nonspecific smooth narrowing of the distal esophagus without mucosal disruption. 2. Small hiatal hernia with moderate amount of spontaneous gastroesophageal reflux in the recumbent position with contrast refluxing from the stomach into the esophagus to the mid to upper esophagus. No erosions or fold thickening in the distal esophagus to suggest active reflux esophagitis. 3. Esophagus otherwise normal. Narrative 12/06/2023 9:26 AM CDT EXAM: FL ESOPHAGRAM DOUBLE CONTRAST FINDINGS: The recent outside CT 10/28/2023 which reported circumferential wall thickening the distal esophagus as well as a small to moderate-sized hiatal hernia is not available for comparison. Small hiatal hernia. Moderate amount of spontaneous gastroesophageal reflux in the recumbent position contrast refluxing from the stomach into the thoracic esophagus to the level of the mid to upper chest. No erosions or fold thickening in the distal esophagus to suggest active reflux esophagitis. Mild to moderate smooth nonspecific narrowing of the distal esophagus above the hiatal hernia without mucosal disruption is nonspecific. Esophagus is otherwise normal. Remainder negative. Procedure Note Amadeo Davila M.D. - 12/06/2023 EXAM: FL ESOPHAGRAM DOUBLE CONTRAST FINDINGS: The recent outside CT 10/28/2023 which reported circumferential wallthickening the distal esophagus as well as a small to moderate-sizedhiatal hernia is not available for comparison. Small hiatal hernia.Moderate amount of spontaneous gastroesophageal reflux in the recumbent position contrast refluxing from the stomach intothe thoracic esophagus to the level of the mid to upper chest. No erosionsor fold thickening in the distal esophagus to suggest active refluxesophagitis. Mild to moderate smooth nonspecific narrowing of the distal esophagus above the hiatal herniawithout mucosal disruption is nonspecific. Esophagus is otherwise normal.Remainder negative. IMPRESSION: : 1. Mild to moderate nonspecific smooth narrowing of the distal esophaguswithout mucosal disruption. 2. Small hiatal hernia with moderate amount of spontaneousgastroesophageal reflux in the recumbent position with contrast refluxingfrom the stomach into the esophagus to the mid to upper esophagus. Noerosions or fold thickening in the distal esophagus to suggest active reflux esophagitis. 3. Esophagus otherwise normal. Mk Echols D.O. IMG FLUOROSCOPY PRO CEDURES from Last 3 Months
--- OUTSIDE RECORDS SUMMARY | 2023-12-24 10:44 | XMS_ITS | Clinical Summary ---
Author Organization [facility] Address [place], [place] [address] Care Team Providers Care Glue Drier Operator Name Role Phone Brian Beverly MD Primary Care Provider [phone] Allergies Active Allergy Reactions Criticality Noted Date Comments Penicillins 06/12/2005 Medications Medication Sig Dispensed Refills Start Date End Date Status levothyroxine (SYNTHROID) 75 mcg tablet Take 75 mcg by mouth once daily. Best if taken on empty stomach. Active hydroCHLOROthiazide 25 mg tablet Take 25 mg by mouth once daily. Active ORDER - MEDICATION ORDER COMPOSER Other the counter Potassium 520 mg two daily 0 06/07/2010 Active multivitamin (MVI) tablet Take 1 tablet by mouth once daily. 0 06/07/2010 Active cholecalciferol (VITAMIN D) 1,000 unit tablet Take 1 tablet by mouth once daily. 0 06/07/2010 Active aspirin enteric coated (ECOTRIN) 81 mg enteric coated tablet Take 1 Tablet (81 mg) by mouth once daily. 10/29/2023 Active alendronate (FOSAMAX) 70 mg tablet Take 70 mg by mouth once a week in the morning. 02/14/2023 Active dilTIAZem CD (CARDIZEM CD) 180 mg extended release 24 hr capsule Take 180 mg by mouth once daily. 09/26/2023 Active sertraline (ZOLOFT) 100 mg tablet Take 100 mg by mouth once daily. 12/04/2022 Active atorvastatin (LIPITOR) 20 mg tabletIndications:Co ronary artery disease, unspecified vessel or lesion type, unspecified whether angina present, unspecified whether morongo or transplanted heart Take 4 Tablets (80 mg) by mouth once daily. 30 Tablet 11 2023 Active empagliflozin (Jardiance) 10 mg tabletIndications:Ot her heart failure (HC),Aortic valve stenosis, etiology of cardiac valve disease unspecified,Atherosc lerosis of coronary artery, unspecified vessel or lesion type, unspecified whether angina present, unspecified whether morongo or transplanted heart Take 1 Tablet (10 mg) by mouth once daily. Resume Wednesday 11/15 as prescribed 2023 Active glipiZIDE (GLUCOTROL) 10 mg tabletIndications:Di abetes mellitus without complication (HC) Take 1 Tablet (10 mg) by mouth two times daily before meals. Resume Wednesday 11/15 as prescribed 2023 Active irbesartan (AVAPRO) 75 mg tabletIndications:Ao rtic valve stenosis, etiology of cardiac valve disease unspecified,Essentia l hypertension Take 1 Tablet (75 mg) by mouth once daily. Resume Wednesday 11/15 as prescribed 2023 Active pioglitazone (ACTOS) 15 mg tabletIndications:Di abetes mellitus without complication (HC) Take 1 Tablet (15 mg) by mouth once daily. Resume Wednesday 11/15 as prescribed 2023 Active metFORMIN (GLUCOPHAGE) 1,000 mg tabletIndications:Di abetes mellitus without complication (HC) Take 1 Tablet (1,000 mg) by mouth two times daily with meals. Resume Friday 11/17 as prescribed 2023 Active Active Problems Problem Noted Date Diagnosed Date Severe aortic stenosis 2023 COLLAZO (dyspnea on exertion) 2023 Moderate mitral regurgitation 2023 Coronary atherosclerosis of unspecified type of vessel, morongo or graft 06/15/2005 Overview (06/15/2005): s/p NARESH LAD, s/p NARESH prox and mid RCA, s/p PTCA ostial PDA 06/14/05 Type II or unspecified type diabetes mellitus without mention of complication, not stated as uncontrolled 06/15/2005 Unspecified essential hypertension 06/15/2005 Other and unspecified hyperlipidemia 06/15/2005 Overview (06/15/2005): 06/12/05 Chol 193, TG 175, HDL 61, LDL 97 Homocysteine 8.1 06/14/05 Lp(a) 20 HYPOTHYROIDISM , on supplement 06/15/2005 Unspecified asthma(493.90) 06/15/2005 Encounters Date Type Department Care Team Description 12/23/2023 3:00 PM CDT Phone [place] [facility] [address] [facility] [address] [place] [phone] Galileo Avilez PA Education (Pre-Open Heart Surgery Education) 12/23/2023 11:57 AM CDT - 12/23/2023 11:59 PM CDT Hospital Encounter [facility] [address] [place] [address] Galileo Avilez PA Moore, Brian H Severe aortic stenosis; Shortness of breath 12/23/2023 Travel 12/18/2023 1:30 PM CDT Phone [place] [facility] [address] [phone] Dahiana Ventura MD 12/05/2023 3:00 PM CDT Office [place] [facility] [address] [place] [address] Dheeraj Sanford MD CV Vascular New (HALLIE Consult: severe iliac disease, preop AVR/CABG opinion, PVD. Referrel by Galileo Avilez PA. All records in [facility]. ABIs and CUS prior to OV) 12/05/2023 1:30 PM CDT - 12/05/2023 11:59 PM CDT Hospital Encounter [facility] [address] [place] [address] Rj Palomares PA Reilly, Chelsey A PAD (peripheral artery disease) (HC); Severe aortic stenosis; Other specified symptoms and signs involving the circulatory and respiratory systems 12/05/2023 Travel 12/04/2023 Orders Only [facility] [address] [place] [address] Rj Palomares PA <No scans attached> 12/03/2023 2:00 PM CDT Phone [place] [facility] [address] [facility] [address] [place] [phone] Dahiana Ventura MD Follow Up 12/03/2023 Orders Only [facility] [address] [place] [address] Galileo Avilez PA Pre Op Imaging 11/28/2023 Telephone [facility] [address] [phone] Timothy Haq MD Questions (Valve Surgery) 2023 10:36 AM CDT - 2023 6:30 PM CDT Hospital Encounter [facility] [address] [place] [address] Gina Meléndez MD Type II or unspecified type diabetes mellitus without mention of complication, not stated as uncontrolled (Primary Dx); Coronary artery disease, unspecified vessel or lesion type, unspecified whether angina present, unspecified whether morongo or transplanted heart; Other heart failure (HC); Aortic valve stenosis, etiology of cardiac valve disease unspecified; Atherosclerosis of coronary artery, unspecified vessel or lesion type, unspecified whether angina present, unspecified whether morongo or transplanted heart; Unspecified essential hypertension; Severe aortic stenosis; ASCVD (arteriosclerotic cardiovascular disease) Discharge Disposition: Home Self Care 2023 Travel 10/31/2023 Telephone [facility] [address] [phone] Rylan Fabian MD Results 10/29/2023 11:40 AM CDT Orders Only [facility] [address] [phone] Lab 10/29/2023 10:30 AM CDT Office [place] [facility] [address] [phone] Dahiana Ventura MD 10/29/2023 10:00 AM CDT Office [place] [facility] [address] [phone] Rylan Fabian MD CV Valve New (INPERSON: VALVE NEW: , HALLIE, CT TAVR ON 10/27, NEEDS EKG, KCCQ12, 5M WALK, JLS//PCP:Brian Beverly MD/) 10/29/2023 Telephone [facility] [address] [place] [address] [place] [address] Rylan Fabian MD Follow Up (SGLT2 coverage) 10/28/2023 1:00 PM CDT Ancillary Procedure [facility] [address] [place] [address] 10/28/2023 Travel 10/23/2023 Orders Only [facility] [address] [place] [address] Acosta Bragg 2 scans: (2-Ord) [place] [facility] Report 10/22/23 10/22/2023 Telephone [facility] [address] [facility] [address] [place] [address] Amos Cavazos MD Lab Orders 10/18/2023 Orders Only [facility] [address] [place] [address] Amos Cavazos MD <No scans attached> 10/17/2023 3:30 PM CDT Office Visit [facility] [address] [place] [address] Amos Cavazos MD 10/17/[address] [place] [address] Amos Cavazos MD Follow Up (To today's office visit with Dr Cavazos) 10/15/[address] [place] [address] Anna Graf MD 09/25/2023 1:00 PM CDT Ancillary Procedure [facility] [address] [place] [address] 09/25/2023 Travel 09/24/2023 9:00 AM CDT Ancillary Procedure [facility] [place] 2[place] [address] [place] [address] from Last 3 Months Social History Tobacco Use Types Packs/Day Years Used Date Smoking Tobacco: Never Smokeless Tobacco: Never Tobacco Cessation:Counseling Given: Not Answered Alcohol Use Standard Drinks/Week Comments No 0 (1 standard drink = 0.6 oz pur e alcohol) Social Connections Answer Date Recorded Frequency of Communication with Friends and Fami ly Not on file 10/17/2023 Sex and Gender Information Value Date Recorded Sex Assigned at Not on file Gender Identity Not on file Sexual Orientation Not on file Obstetrics History Last Filed Vital Signs Vital Sign Reading Time Taken Comments Blood Pressure 166/68 12/05/2023 2:12 PM CDT Pulse 77 12/05/2023 2:12 PM CDT Temperature 36.6 ??C (97.8 ??F) 2023 6:00 PM CD T Respiratory Rate 18 2023 6:00 PM CDT Oxygen Saturation 93% 12/05/2023 2:12 PM CDT Inhaled Oxygen Concentration - - Weight 68 kg (150 lb) 2023 11:06 AM CDT Height 162.6 cm (5' 4) 2023 11:06 AM CDT Body Mass Index 25.75 2023 11:06 AM CDT Plan of Treatment Upcoming Encounters Date Type Department Care Team (Latest Contact Info) Description 01/01/2024 10:35 AM CDT Hospital Encounter [facility] [address] [place] [address] Dahiana Ventura MD [address] [facility] [address] [place] [address] 01/01/2024 10:35 AM CDT - 01/01/2024 6:20 PM CDT Surgery [facility] [address] [place] [address] Dahiana Ventura MD [address] [facility] [address] [place] [address] REPLACEMENT AORTIC VALVE W/BRITTNEY, CORONARY ARTERY BYPASS W/EVH Scheduled Procedures Name Priority Associated Diagnoses Date/Ti me REPLACEMENT AORTIC VALVE CAD, 01/01/2024 10:35 AM CDT BYPASS CORONARY ARTERY 01 CAD, 01/01/2024 10:35 AM CDT Health Maintenance Due Date Last Done Comments Pneumococcal series for age 65+ (1 of 2 - PCV) 944 Tdap 1948 Depression screening for age 12+ 1949 BMI (ht and wt on same day) for age 18+ 11/16/1955 Tetanus booster 1957 Zoster (shingles) series for age 50+ (1 of 2) 11/15/18 88 DEXA/DXA scan for age 65+ 2002 Medicare Wellness for age 65+ 2002 RSV vaccine for adults or pr egnancy (1 - 1-dose 75+ series) 2012 COVID-19 vaccine series (2 - season) 2020 Influenza for age 65+ 12/01/2023 Procedures Procedure Name Priority Date/Time Associated Diagnosis Comments US VEIN MAPPING LOWER EXTREMITY BILATERAL STAT 12/23/2023 12:38 PM CDT Severe aortic stenosis Shortness of breath AMB CONSULT TO GASTROENTEROLOGY HALLIE 12/07/2023 7:27 PM CDT Severe aortic stenosis US CAROTID DUPLEX BILATERAL STAT 12/05/2023 2:10 PM CDT Severe aortic stenosis Other specified symptoms and signs involving the circulatory and respiratory systems US ANKLE BRACHIAL INDEX BILATERAL HALLIE 12/05/2023 2:10 PM CDT PAD (peripheral artery disease) (HC) SCAN CORRESP-IMAGING 11/18/2023 2:32 PM CDT COMPREHENSIVE BLOOD GAS MIXED VENOUS Timed 2023 1:36 PM CDT CVL CORONARY ANGIOGRAM Routine 1:28 PM CDT EKG 12 LEAD HALLIE 2023 11:28 AM CDT HEPATIC FUNCTION PANEL HALLIE 11:12 AM CDT LIPID PANEL HALLIE 2023 11:12 AM CDT CREATININE STAT 2023 11:12 AM CDT BUN STAT 2023 11:12 AM CDT POTASSIUM STAT 2023 11:12 AM CDT SODIUM STAT 2023 11:12 AM CDT CBC W PLT NO DIFF HALLIE 2023 11: 12 AM CDT BASIC METABOLIC PANEL HALLIE 2023 11:12 AM CDT PRO-BNP Routine 10/29/2023 11:56 AM CDT Aortic valve stenosis, etiology of cardiac valve disease unspecified Atherosclerosis of coronary artery, unspecified vessel or lesion type, unspecified whether angina present, unspecified whether morongo or transplanted heart Other heart failure (HC) TROPONIN T (HS) STABLE AMBULATORY Routine 10/29/2023 11:56 AM CDT Aortic valve stenosis, etiology of cardiac valve disease unspecified Atherosclerosis of coronary artery, unspecified vessel or lesion type, unspecified whether angina present, unspecified whether morongo or transplanted heart EKG 12 LEAD Routine 10/29/2023 8:59 AM CDT Aortic valve stenosis, etiology of cardiac valve disease unspecified CTA CHEST ABD PELVIS TAVR - DUAL READ HALLIE 10/28/2023 1:49 PM CDT Aortic valve stenosis, etiology of cardiac valve disease unspecified HEMATOCRIT Routine 10/22/2023 Preprocedural cardiovascular examination CREATININE,ISTAT Routine 10/22/2023 Preprocedural cardiovascular examination ECHO TTE COMPLETE WO CONTRAST Routine 09/25/2023 1:49 PM CDT Cardiac murmur, unspecified NM CARDIAC MPI STRESS TEST Routine 09/24/2023 1:22 PM CDT Chest pain from Last 3 Months Results * US VEIN MAPPING LOWER EXTREMITY BILATERAL (12/23/2023 12:38 PM CDT) Anatomical Region Laterality Modality LEGS, LEG L, LEG R Ultrasound 12/23/2023 12:0 6 PM CDT Narrative 12/23/2023 2:41 PM CDT VASCULAR ULTRASOUND REPORT AMBIKA CODY Accession#: ?? [id number] : ?1935 ??Study Date: ?? 12/23/2023 12:06:43 PM Age: ?88 years ?? Tech: ? BHM Gender: F ?Referring MD: GALILEO AVILEZ Site: [facility] Study performed: ?Vein mapping, (bilateral). Indication for study: Pre-op exam; CAD Study Quality: ?Good TECHNIQUE: Lower/upper extremity veins were examined with duplex ultrasound, color-flow and spectral Doppler per exam protocol. Vein compressibility by transducer pressure was used to evaluate presence/absence of DVT/SVT. Venous flow and competence was evaluated by flow augmentation maneuvers per exam protocol. Insufficiency studies were performed with the patient in upright position, with vein diameters measured in mm, and reflux. IMPRESSION: 1. The right greater saphenous vein and small saphenous vein are patent and compressible with diameters as listed below. 2. The left greater saphenous vein and small saphenous vein are patent and compressible with diameters as listed below. COMPARISON: No prior study available for comparison. MEASUREMENTS: Vein Map +--------+--------+ +--------+--------+ RIGHT ?LEFT ? +--------+--------+ +--------+--------+ Compress Diameter ? Compress Diameter ?(mm) ?(mm) ?? +--------+--------+ +--------+--------+ ??yes ?7.7 ? SFJ ?yes ?7.0 ?? +--------+--------+ +--------+--------+ ??yes ?4.0 ?? GSV PROX THIGH ??yes ?3.4 ?? +--------+--------+ +--------+--------+ ??yes ?2.8 ?? GSV MID THIGH ??yes ?3.4 ?? +--------+--------+ +--------+--------+ ??yes ?2.6 ?? GSV DIST THIGH ??yes ?2.7 ?? +--------+--------+ +--------+--------+ ??yes ?3.4 ? GSV KNEE ?yes ?3.3 ?? +--------+--------+ +--------+--------+ ??yes ?3.4 ?? GSV UPPER CALF ??yes ?3.4 ?? +--------+--------+ +--------+--------+ ??yes ?2.1 ?? GSV MID CALF ??yes ?3.6 ?? +--------+--------+ +--------+--------+ ??yes ?2.3 ?? GSV LOW CALF ??yes ?3.0 ?? +--------+--------+ +--------+--------+ ??yes ?1.5 ? SPJ ?yes ?1.2 ?? +--------+--------+ +--------+--------+ ??yes ?1.2 ?? SSV PRX CALF ??yes ?1.3 ?? +--------+--------+ +--------+--------+ ??yes ?1.8 ?? SSV MID CALF ??yes ?2.7 ?? +--------+--------+ +--------+--------+ ??yes ?1.7 ?? SSV DIST CALF ??yes ?1.6 ?? +--------+--------+ +--------+--------+ = Can't evaluate Momo Vu MD. Electronically signed on 12/23/2023 2:41:14 PM This study was performed and interpreted by a service accredited by the Intersocietal Accreditation Commission (IAC/Vascular), [email or web address] Report generated by [employer]. ??Final ?? Procedure Note Momo Vu MD - 12/23/2023 VASCULAR ULTRASOUND REPORT AMBIKA CODY : 1935 Study Date: 12/23/2023 12:06:43 PM Age: 88 years Tech: M Gender: F Referring MD: GALILEO AVILEZ Site: [facility] Study performed: Vein mapping, (bilateral). Indication for study: Pre-op exam; CAD Study Quality: Good TECHNIQUE: Lower/upper extremity veins were examined with duplex ultrasound,color-flow and spectral Doppler per exam protocol. Vein compressibility bytransducer pressure was used to evaluate presence/absence of DVT/SVT.Venous flow and competence was evaluated by flow augmentation maneuversper exam protocol. Insufficiency studies were performed with the patientin upright position, with vein diameters measured in mm, and reflux. IMPRESSION: 1. The right greater saphenous vein and small saphenous vein are patentand compressible with diameters as listed below. 2. The left greater saphenous vein and small saphenous vein are patentand compressible with diameters as listed below. COMPARISON: No prior study available for comparison. MEASUREMENTS: Vein Map +--------+--------+ +--------+--------+ RIGHT LEFT +--------+--------+ +--------+--------+ Compress Diameter Compress Diameter (mm) (mm) +--------+--------+ +--------+--------+ yes 7.7 SFJ yes 7.0 +--------+--------+ +--------+--------+ yes 4.0 GSV PROX THIGH yes 3.4 +--------+--------+ +--------+--------+ yes 2.8 GSV MID THIGH yes 3.4 +--------+--------+ +--------+--------+ yes 2.6 GSV DIST THIGH yes 2.7 +--------+--------+ +--------+--------+ yes 3.4 GSV KNEE yes 3.3 +--------+--------+ +--------+--------+ yes 3.4 GSV UPPER CALF yes 3.4 +--------+--------+ +--------+--------+ yes 2.1 GSV MID CALF yes 3.6 +--------+--------+ +--------+--------+ yes 2.3 GSV LOW CALF yes 3.0 +--------+--------+ +--------+--------+ yes 1.5 SPJ yes 1.2 +--------+--------+ +--------+--------+ yes 1.2 SSV PRX CALF yes 1.3 +--------+--------+ +--------+--------+ yes 1.8 SSV MID CALF yes 2.7 +--------+--------+ +--------+--------+ yes 1.7 SSV DIST CALF yes 1.6 +--------+--------+ +--------+--------+ = Can't evaluate Momo Vu MD. Electronically signed on 12/23/2023 2:41:14 PM This study was performed and interpreted by a service accredited by theIntersocietal Accreditation Commission (IAC/Vascular),[email or web address]/vascular Report generated by [employer]. Final Galileo Avilez PA US * US CAROTID DUPLEX BILATERAL (12/05/2023 2:10 PM CDT) Anatomical Region Laterality Modality CAROTID, NECK Ultrasound 12/05/2023 1:41 PM CDT Narrative 12/05/2023 2:58 PM CDT VASCULAR ULTRASOUND REPORT AMBIKA CODY Accession#: ?? [id number] : ?1935 ??Study Date: ?? 12/05/2023 1:41:19 PM Age: ?88 years ?? Tech: ? CAR Gender: F ?Referring MD: GALILEO AVILEZ Site: [facility] Study performed: ?Carotid Indication for Study: pre-op cardiac surgery Study Quality: ?Good TECHNIQUE: The extracranial carotid arteries, vertebral arteries and subclavian arteries were examined per exam protocol with duplex ultrasound, color-flow and spectral Doppler. Flow velocities including peak systolic (PSV), end diastolic (EDV), and velocity ratios if applicable were documented at sites per exam protocol. IMPRESSION: 1. Based on the ICA velocities, ICA/CCA ratio, and 2D images there is plaque causing <50% stenosis in the right internal carotid artery and there is plaque causing <50% stenosis in the left internal carotid artery. 2. Abnormal flow in the right vertebral artery suggestive of possible flow- limiting stenosis and normal antegrade flow in the left vertebral artery. 3. Multiphasic flow within bilateral subclavian arteries. COMPARISON: No prior study available for comparison. RIGHT FINDINGS: Abnormal flow in the right vertebral artery. Normal multiphasic right subclavian artery flow. LEFT FINDINGS: Antegrade flow in the left vertebral artery. Normal multiphasic left subclavian artery flow. MEASUREMENTS: +--------+--------+------+--------+--------+ RIGHT ?? RIGHT ?LEFT ?LEFT ?? +--------+--------+------+--------+--------+ PSV cm/s EDV cm/s Vessel PSV cm/s EDV cm/s +--------+--------+------+--------+--------+ ?? 70 ? 10 ?? P. CCA ?? 70 ? 13 ?? +--------+--------+------+--------+--------+ ?? 58 ? 14 ?? D. CCA ?? 57 ? 13 ?? +--------+--------+------+--------+--------+ ?? 64 ? 15 ?? P. ICA ?? 50 ? 12 ?? +--------+--------+------+--------+--------+ ?? 62 ? 19 ?? M. ICA ?? 54 ? 15 ?? +--------+--------+------+--------+--------+ ?? 55 ? 18 ?? D. ICA ?? 58 ? 18 ?? +--------+--------+------+--------+--------+ ?? 57 ? 0 ? ECA ? 71 ? 10 ?? +--------+--------+------+--------+--------+ +-----+ +----+ RIGHT ? LEFT +-----+ +----+ 150 Subclavian Artery (cm/s) ? +-----+ +----+ 29 ?? Vertebral Artery (cm/s) ? +-----+ +----+ 1.1 ? ICA/CCA Ratio ? 0.9 +-----+ +----+ Dheeraj Sanford MD. Electronically signed on 12/05/2023 2:58:33 PM This study was performed and interpreted by a service accredited by the Intersocietal Accreditation Commission (IAC/Vascular), [email or web address]/vascular Report generated by [employer]. ??Final ?? Procedure Note Dheeraj Sanford MD - 12/05/2023 VASCULAR ULTRASOUND REPORT AMBIKA CODY : 1935 Study Date: 12/05/2023 1:41:19 PM Age: 88 years Tech: CAR Gender: F Referring MD: GALILEO AVILEZ Site: [facility] Study performed: Carotid Indication for Study: pre-op cardiac surgery Study Quality: Good TECHNIQUE: The extracranial carotid arteries, vertebral arteries and subclavianarteries were examined per exam protocol with duplex ultrasound,color-flow and spectral Doppler. Flow velocities including peak systolic(PSV), end diastolic (EDV), and velocity ratios if applicable weredocumented at sites per exam protocol. IMPRESSION: 1. Based on the ICA velocities, ICA/CCA ratio, and 2D images there isplaque causing <50% stenosis in the right internal carotid artery andthere is plaque causing <50% stenosis in the left internal carotidartery. 2. Abnormal flow in the right vertebral artery suggestive of possibleflow- limiting stenosis and normal antegrade flow in the left vertebralartery. 3. Multiphasic flow within bilateral subclavian arteries. COMPARISON: No prior study available for comparison. RIGHT FINDINGS: Abnormal flow in the right vertebral artery. Normal multiphasic rightsubclavian artery flow. LEFT FINDINGS: Antegrade flow in the left vertebral artery. Normal multiphasic leftsubclavian artery flow. MEASUREMENTS: +--------+--------+------+--------+--------+ RIGHT RIGHT LEFT LEFT +--------+--------+------+--------+--------+ PSV cm/s EDV cm/s Vessel PSV cm/s EDV cm/s +--------+--------+------+--------+--------+ 70 10 P. CCA 70 13 +--------+--------+------+--------+--------+ 58 14 D. CCA 57 13 +--------+--------+------+--------+--------+ 64 15 P. ICA 50 12 +--------+--------+------+--------+--------+ 62 19 M. ICA 54 15 +--------+--------+------+--------+--------+ 55 18 D. ICA 58 18 +--------+--------+------+--------+--------+ 57 0 ECA 71 10 +--------+--------+------+--------+--------+ +-----+ +----+ RIGHT LEFT +-----+ +----+ 150 Subclavian Artery (cm/s) +-----+ +----+ 29 Vertebral Artery (cm/s) +-----+ +----+ 1.1 ICA/CCA Ratio 0.9 +-----+ +----+ Dheeraj Sanford MD. Electronically signed on 12/05/2023 2:58:33 PM This study was performed and interpreted by a service accredited by theIntersocietal Accreditation Commission (IAC/Vascular),[email or web address]/vascular Report generated by [employer]. Final Galileo NAVARRO US * US ANKLE BRACHIAL INDEX BILATERAL (12/05/2023 2:10 PM CDT) Anatomical Region Laterality Modality ANKLES, ANKLE L, ANKLE R Ultraso und 12/05/2023 1:45 PM CDT Narrative 12/05/2023 3:13 PM CDT VASCULAR ULTRASOUND REPORT AMBIKA CODY Accession#: ?? [id number] : ?1935 ??Study Date: ?? 12/05/2023 1:45:57 PM Age: ?88 years ?? Tech: ? CAR Gender: F ?Referring MD: RJ PALOMARES Site: [facility] Study performed: ?Lower extremity resting JOAN, TBI, (bilateral). Indication for study: Follow-up known PAD Study Quality: ?Good TECHNIQUE: Lower/upper extremity arteries were examined per exam protocol by duplex ultrasound, color-flow and spectral Doppler. Peak systolic velocities (PSV), Doppler waveform quality, velocity ratios and vessel size in cm, were documented at protocol specific sites. Physiologic data including segmental pressures, ankle/brachial index (JOAN), digit PPG recordings, laser Doppler flowmetry, transcutaneous oximetry, and digit temperatures were documented at sites per exam protocol and test requirements. IMPRESSION: 1. Toe-brachial index is normal on the right at 0.70 and toe-brachial index is normal on the left at 0.74. 2. Resting ankle-brachial indices are non compressible bilaterally. COMPARISON: No prior study available for comparison. FINDINGS: Bilateral JOAN's falsely elevated and unreliable due to calcified pedal vessels. Bilateral TBI normal with right at 0.70 and left 0.74. Pressures +-----+ +--------+ +-----+ ? RIGHT (mmHg) ? LEFT (mmHg) ? +-----+ +--------+ +-----+ Index ?135 ? Brachial ?145 ? Index +-----+ +--------+ +-----+ 1.72 ?250 ?COINING PRESS OPERATOR ?250 ? 1.72 +-----+ +--------+ +-----+ 1.72 ?250 ?DPA ?205 ? 1.41 +-----+ +--------+ +-----+ 0.70 ?101 ? Digit 1 ?107 ? 0.74 +-----+ +--------+ +-----+ Dheeraj Sanford MD. Electronically signed on 12/05/2023 3:13:43 PM This study was performed and interpreted by a service accredited by the Intersocietal Accreditation Commission (IAC/Vascular), [email or web address]/vascular Report generated by [employer]. ??Final ?? Procedure Note Dheeraj Sanford MD - 12/05/2023 VASCULAR ULTRASOUND REPORT AMBIKA CODY : 1935 Study Date: 12/05/2023 1:45:57 PM Age: 88 years Tech: CAR Gender: F Referring MD: RJ PALOMARES Site: [facility] Study performed: Lower extremity resting JOAN, TBI, (bilateral). Indication for study: Follow-up known PAD Study Quality: Good TECHNIQUE: Lower/upper extremity arteries were examined per exam protocol by duplexultrasound, color-flow and spectral Doppler. Peak systolic velocities(PSV), Doppler waveform quality, velocity ratios and vessel size in cm,were documented at protocol specific sites. Physiologic data includingsegmental pressures, ankle/brachial index (JOAN), digit PPG recordings,laser Doppler flowmetry, transcutaneous oximetry, and digit temperatureswere documented at sites per exam protocol and test requirements. IMPRESSION: 1. Toe-brachial index is normal on the right at 0.70 and toe-brachialindex is normal on the left at 0.74. 2. Resting ankle-brachial indices are non compressible bilaterally. COMPARISON: No prior study available for comparison. FINDINGS: Bilateral JOAN's falsely elevated and unreliable due to calcified pedalvessels. Bilateral TBI normal with right at 0.70 and left 0.74. Pressures +-----+ +--------+ +-----+ RIGHT (mmHg) LEFT (mmHg) +-----+ +--------+ +-----+ Index 135 Brachial 145 Index +-----+ +--------+ +-----+ 1.72 250 COINING PRESS OPERATOR 250 1.72 +-----+ +--------+ +-----+ 1.72 250 DPA 205 1.41 +-----+ +--------+ +-----+ 0.70 101 Digit 1 107 0.74 +-----+ +--------+ +-----+ Dheeraj Sanford MD. Electronically signed on 12/05/2023 3:13:43 PM This study was performed and interpreted by a service accredited by theIntersocietal Accreditation Commission (IAC/Vascular),[email or web address]/vascular Report generated by [employer]. Final Rj NAVARRO [place] * SCAN CORRESP-IMAGING (11/18/2023 2:32 PM CDT) Anatomical Region Laterality Modality Computed Tomogra phy Narrative 11/18/2023 2:32 PM CDT Ordered by an unspecified provider. Other Clinical Staff OTHER * (ABNORMAL) COMPREHENSIVE BLOOD GAS MIXED VENOUS (2023 1:36 PM CDT) O2 SATURATION, MEASURED, MIXED VENOUS 68(L) 70 - 75 % 2023 1:36 PM CDT [facility] PATIENT TEMPERATURE 37.0 Degrees C 2023 1:36 PM CDT [facility] COLLECTION SITE PULMONARY ARTERY 2023 1:36 PM CDT [facility] HEMOGLOBIN,BLOO D GAS 12.3 12.0 - 16.0 g/dL 2023 1:36 PM CDT [facility] Blood BLOOD SPECIMEN / Unknown 2023 1:36 PM CDT 2023 10:42 PM CDT Gina Meléndez MD CHEMISTRY [facility] [address] [place] [id number], [place] * CVL CORONARY ANGIOGRAM (2023 1:28 PM CDT) Anatomical Region Laterality Modality X-Ray Angiograph y, X-Ray Angiography 2023 1:28 PM CDT Narrative Transcriptions Gina Meléndez MD - 2023 2:31 PM CDT [facility] Cardiac Catheterization Report Name: AMBIKA CODY Event Date: 2023 13:28 Excellian ID #: [id number] HARRISON #: [id number] Patient Class: Outpatient Diagnostic Physician: GINA MELÉNDEZ [facility] Referring Physician: Brian Beverly Date: 1935 Gender: Female Age: 87 Summary/Conclusions PRESENTATION / INDICATIONS * Pre-SAVR evaluation for severe aortic stenosis, prior PCI of the LAD andRCA in 2005, 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 DIAGNOSTIC - CORONARY * Densely calcified coronary arteries. * The left main artery has mild disease. * The LAD contains moderate to severe proximal in-stent restenosis. * Large OM1 branch of the circumflex artery is moderate to severelydiseased. * The RCA is dominant with severe diffuse calcified disease in theproximal to mid vessel (stent within this segment), patent distal stent,left to right collaterals present. VASCULAR ACCESS * Heavily calcified radial artery. Using ultrasound guidance and apercutaneous technique, the right radial artery was accessed. Ultrasoundwas used to confirm vessel patency, localizing needle into the lumen ofthe vessel. An image was saved for the medical record. * Using ultrasound guidance and a percutaneous technique, the rightinternal jugular vein was accessed. Ultrasound was used to confirm vesselpatency, localizing needle into the lumen of the vessel. An image wassaved for the medical record. HEMODYNAMICS ? RA=2; RV=36/4; PW=13; PA=41/13, mean 23; PA sat 68%; arterial sat 91%;estimated Sonal CO/CI 5.56/3.21. RECOMMENDATIONS & PLAN * Optimize risk factors and medications * Ongoing management per complex valve service and CT surgery. Consent & [place] Protocol The risks, benefits, and alternatives of the procedure were discussed withthe patient and written informed consent was obtained. [place] protocol was followed. TIME OUT conducted just prior tostarting procedure confirmed patient identity, site/side, procedure,patient position, and availability of correct equipment and implants (ifapplicable). Staff Name Title GINA MELÉNDEZ Diagnostic Industrial Controller Sandy Gamboa RN Nurse Yogesh, Lewis CVT Scrub Ksenia Juarez CVT Monitor Lynn Arroyo CVT Monitor Procedures ? Ultrasound Guided Vascular Access ? Coronary Angiogram ? Right Heart Catheterization Diagnostic Findings * Left Main Coronary Artery ? 20% stenosis in the LMCA. * Left Anterior Descending ? 70% stenosis in the Proximal LAD. ? 50% stenosis in the Proximal LAD. ? 30% stenosis in the Mid LAD. ? 30% stenosis in the Distal LAD. ? 30% stenosis in the 1st Diagonal. * Circumflex ? 20% stenosis in the Proximal Circumflex. ? 70% stenosis in the 1st Marginal. * Right Coronary Artery ? 90% stenosis in the Proximal RCA. ? 50% stenosis in the Distal RCA. Lesion Information Lesion # Vessel Segment Lesion Length Lesion Details Proximal Circumflex 1st Marginal Distal LAD Proximal RCA Distal RCA 1st Diagonal Proximal LAD Mid LAD Proximal LAD LMCA Hemodynamics State: Baseline Pressures (mmHg) Site Systolic Diastolic End Diastolic A Wave V Wave Mean RA 5 5 2 RV 36 4 PCW 14 14 13 PA 41 13 23 AO 162 63 114 Oximetry AO: 91 % PA: 67.5 % Cardiac Output Estimated Sonal Output: 5.56 l/min Estimated Sonal Index: 3.21 l/min/m2 Resistances PVR: 143.89 PVR Index: 249.48 SVR: 1611.53 SVR Index: 2794.19 PVR/SVR: 0.09 Blood Flow Pulmonary (QP): 5.56 l/min Systemic (QS): 5.56 l/min Procedure Details Estimated Blood Loss: < 30 ml Specimen Collected: None Level of Sedation Achieved: Moderate Procedure Start: 13:28 Procedure End: 14:02 Procedure Time: 34 min Fluoroscopy Time: 3 min Cumulative Air Kerma: 268 mGy DAP: 1360 uGy/M2 Contrast: Omnipaque (low-osmolar), 45 ml Physiologic Data Hemoglobin: 12.2 g/dl Weight: 68.0 kg BSA: 1.73 m2 Vascular Access Time Access Sheath Size 13:31 Right IJ Vein, sheath inserted 13:47 Right Radial Artery, sheath inserted Complications ? No Complications Medications Ordered and Administered Start Time Stop Time Medication Dose Units Route Ordered By Given By 13:26 Fentanyl 50 mcg IV Gina Meléndez Connie RN 13:26 Versed 1 mg IV Gina Meléndez Connie RN 13:28 1% Lidocaine 3 ml Subcut Gina Meléndez, Gina Loo 13:29 O2 1 l per min Nasal cannula Gina Meléndez Connie RN 13:36 1% Lidocaine 3.5 ml Subcut Gina Meléndez Yale L 13:39 Versed 0.5 mg IV Gina Meléndez Connie RN 13:39 Fentanyl 25 mcg IV Gina Meléndez Connie RN 13:47 Verapamil 3 mg IA Gina Meléndez Yale L 13:50 Heparin 4000 units IV Gina Meléndez Connie RN 13:58 Versed 5 mg IV Gina Meléndez Connie RN 13:58 Fentanyl 25 mcg IV Gina Meléndez Connie RN 13:58 Verapamil 3 mg IA Gina Meléndez [place] Cinda I personally monitored the patient?s conscious sedation during theprocedure. Conscious sedation starts with the first sedation medication dose ofFentanyl or Versed and ends when the procedure is completed, the patientis stable for recovery status, and the physician or other qualified healthcare professional providing the sedation ends personal [id number] time with the patient. The medications listed above were verbally ordered by me and read back tome as documented above. Refer to the procedure log report for additional case details. electronically signed on 2023 2:31:03 PM with status of Final Gina Meléndez MD [facility] [address] [place] [address] (p) [phone](f) Provider Referring CV IMAGING * EKG - Now (2023 11:28 AM CDT) Only the most recent of2 resultswithin the time period is included. Interpretation Sinus rhythm with Premature supraventricular complexes Left ventricular hypertrophy with repolarization abnormality ( R in aVL , Sokolow-So , Roe product ) Abnormal ECG When compared with ECG of 29-Oct-2023 08:59, Premature ventricular complexes are no longer Present Premature supraventricular complexes are now Present Nonspecific T wave abnormality no longer evident in Inferior leads BEYOND NOW Ventricular Rate 80 BPM BEYOND NOW Atrial Rate 80 BPM BEYOND NOW P-R Interval 162 ms BEYOND NOW QRS Duration 104 ms BEYOND NOW QT 396 ms BEYOND NOW QTc 456 ms BEYOND NOW P [place] 47 degrees BEYOND NOW R [place] -8 degrees BEYOND NOW T [place] 80 degrees BEYOND NOW 2023 11:2 8 AM CDT 2023 6:39 PM CDT Narrative [facility] NOW - 2023 6:39 PM CDT Test Indication: PRE OP Elizabeth Fernandes NP EKG ORD Performing Organization Address City/State/[facility] Co de Phone Number [facility] NOW [place], [place] * CBC with Platelets no Differential (2023 11:12 AM CDT) WHITE BLOOD COUNT 5.3 4.5 - 11.0 thou/cu mm 2023 11:44 AM CDT [facility] RED BLOOD COUNT 4.08 4.00 - 5.20 mil/cu mm 2023 11:44 AM CDT [facility] HEMOGLOBIN 12.2 12.0 - 16.0 g/dL 2023 11:44 AM CDT [facility] HEMATOCRIT 38.0 33.0 - 51.0 % 2023 11:44 AM CDT [facility] MCV 93 80 - 100 fL 2023 11:44 AM CDT [facility] MCH 29.9 26.0 - 34.0 pg 2023 11:44 AM CDT [facility] MCHC 32.1 32.0 - 36.0 g/dL 2023 11:44 AM CDT [facility] RDW 14.4 11.5 - 15.5 % 2023 11:44 AM CDT [facility] PLATELET COUNT 224 140 - 440 thou/cu mm 2023 11:44 AM CDT [facility] MPV 10.0 6.5 - 11.0 fL 2023 11:44 AM CDT [facility] NRBC 0.0 % 2023 11:44 AM CDT [facility] ABS NRBC 0.0 thou /cu mm 2023 11:44 AM CDT [facility] Blood BLOOD SPECIMEN / Unknown Butterfly / Unknown 2023 11:12 AM CDT 2023 11:30 AM CDT Narrative [facility] - 2023 11:44 AM CDT If not done within past 14 days. ??Nurse to release order. Gina Meléndez MD HEMATOLOGY Performing Organization Address City/[facility]/ZIP Co de Phone Number [facility] [address] [place] [address], [place] * BUN (2023 11:12 AM CDT) BUN 12 8 - 23 mg/dL 2023 12:07 PM CDT [facility] Blood BLOOD SPECIMEN / Unknown Butterfly / Unknown 2023 11:12 AM CDT 2023 11:30 AM CDT Elizabeth Fernandes NP CHEMISTRY [facility] [address] [address], [place] * Sodium (2023 11:12 AM CDT) SODIUM 138 136 - 145 mmol/L 2023 12:07 PM CDT [facility] Blood BLOOD SPECIMEN / Unknown Butterfly / Unknown 2023 11:12 AM CDT 2023 11:30 AM CDT Elizabeth Fernandes NP CHEMISTRY [facility] [address] [place] [address], [place] * Potassium (2023 11:12 AM CDT) POTASSIUM 4.0 3.5 - 5.1 mmol/L 2023 12:07 PM CDT [facility] Blood BLOOD SPECIMEN / Unknown Butterfly / Unknown 2023 11:12 AM CDT 2023 11:30 AM CDT Elizabeth Fernandes NP CHEMISTRY Performing Organization Address City/[facility] Co de Phone Number [facility] [address] [place] [address], [place] * (ABNORMAL) Creatinine (2023 11:12 AM CDT) Pathologist [facility] eGFR 63(L) >90 mL/min/1.7 3m2 2023 12:07 PM CDT [facility] Comment:As of 2021, eG FR is calculated by the CKD-EPI creatinine equation without race adjustment. ??eGFR can be influenced by muscle mass, exercise, and diet. ??The reported eGFR is an estimation only and is only applicable if the renal function is stable. CREATININE 0.90 0.50 - 0.90 mg/dL 2023 12:07 PM CDT [facility] Blood BLOOD SPECIMEN / Unknown Butterfly / Unknown 2023 11:12 AM CDT 2023 11:30 AM CDT Elizabeth Fernandes NP CHEMISTRY [facility] [address] [place] [address], [place] * (ABNORMAL) Hepatic Function Panel (2023 11:12 AM CDT) ALBUMIN 4.2 4.0 - 4.9 g/dL 2023 12:07 PM CDT [facility] PROTEIN,TOTAL 7.6 6.0 - 8.0 g/dL 2023 12:07 PM CDT [facility] BILIRUBIN,TOTAL 0.3 0.0 - 1.2 mg/dL 2023 12:07 PM CDT [facility] BILIRUBIN,DIRECT 0.2 0.0 - 0.2 mg/dL 2023 12:07 PM CDT [facility] BILIRUBIN,INDIRE CT 0.1(L) 0.2 - 0.8 mg/dL 2023 12:07 PM CDT [facility] ALK PHOSPHATASE 62 35 - 104 IU/L 2023 12:07 PM T [facility] ALT (SGPT) 13 10 - 35 IU/L 2023 12:07 PM T [facility] AST (SGOT) 27 10 - 35 IU/L 2023 12:07 PM T [facility] Blood BLOOD SPECIMEN / Unknown Butterfly / Unknown 2023 11:12 AM CDT 2023 11:30 AM CDT Elizabeth Fernandes NP CHEMISTRY [facility] [address] [place] [address], * (ABNORMAL) Lipid Panel (2023 11:12 AM CDT) CHOLESTEROL,TOTAL 184 100 - 199 mg/dL 2023 12:07 PM T [facility] Comment: Cholesterol, Total Reference Ranges Desirable <200 mg/dL Borderline 200-239 mg/dL High >=240 mg/dL TRIGLYCERIDES 161(H) <150 mg/dL 2023 12:07 PM T [facility] HDL CHOLESTEROL 88 >40 mg/dL 12:07 PM CDT [facility] NON-HDL CHOLESTEROL 96 <145 mg/dl 2023 12:07 PM T [facility] CHOL/HDL RATIO 2.09 <4.50 2023 12:07 PM CDT [facility] LDL CHOLESTEROL 64 <=130 mg/dL 2023 12:07 PM T [facility] VLDL CHOLESTEROL 32(H) <=30 mg/dL 2023 12:07 PM CDT [facility] PROVIDER ORDERED STATUS RANDOM 2023 12:07 PM T [facility] Blood BLOOD SPECIMEN / Unknown Butterfly / Unknown 2023 11:12 AM CDT 2023 11:30 AM CDT Elizabeth Fernandes NP [facility]MISTRY [facility] [address] [place] [id number], * (ABNORMAL) Basic Metabolic Panel (2023 11:12 AM CDT) SODIUM 138 136 - 145 mmol/L 2023 12:07 PM CDT [facility] POTASSIUM 4.0 3.5 - 5.1 mmol/L 2023 12:07 PM T [facility] CHLORIDE 100 98 - 107 mmol/L 2023 12:07 PM CDT [facility] CO2,TOTAL 27 22 - 29 mmol/L 2023 12:07 PM T [facility] ANION GAP 11 5 - 18 2023 12:07 PM T [facility] GLUCOSE 159(H) 70 - 99 mg/dL 2023 12:07 PM T [facility] CALCIUM 9.4 8.8 - 10.2 mg/dL 2023 12:07 PM CDT [facility] BUN 12 8 - 23 mg/dL 2023 12:07 PM CDT [facility] CREATININE 0.90 0.50 - 0.90 mg/dL 2023 12:07 PM CDT [facility] BUN/CREAT RATIO 13 10 - 20 12:07 PM CDT [facility] eGFR 63(L) >90 mL/min/1.7 3m2 2023 12:07 PM CDT [facility] Comment:As of 2021, eG FR is calculated by the CKD-EPI creatinine equation without race adjustment. ??eGFR can be influenced by muscle mass, exercise, and diet. ??The reported eGFR is an estimation only and is only applicable if the renal function is stable. Blood BLOOD SPECIMEN / Unknown Butterfly / Unknown 2023 11:12 AM CDT 2023 11:30 AM CDT [place] Terell Meléndez MD CHEMISTRY [facility] [address] [place] [address], * (ABNORMAL) TROPONIN T (HS) STABLE AMBULATORY (10/29/2023 11:56 AM CDT) TROPONIN T HS 21(H) 6-10 ng/L ng/L 10/29/2023 1:15 PM CDT [facility] Blood BLOOD SPECIMEN / Unknown Venipuncture / Unknown 10/29/2023 11:56 AM CDT 10/29/2023 12:19 PM CDT Narrative [facility] - 10/29/2023 1:15 PM CDT hs-cTnT (Elecsys Troponin T Gen 5) concentration (s) above the sex-specific 99th percentile (16 ng/L or greater for males or 11 ng/L or greater for females) are indicative of myocardial injury. There are multiple etiologies that can cause hs-cTnT increases above the 99th percentile (myocardial injury) other than acute myocardial infarction. Clinical context and careful clinical evaluation are critical for diagnosis and risk-stratification. The diagnosis of acute myocardial infarction requires a rising and/or falling pattern in hs-cTnT concentrations with at least one value above the sex-specific 99th percentile PLUS at least one of the following clinical criteria: ischemic symptoms, new or presumed new significant ST-T wave changes or new LBBB, development of pathological Q waves, imaging evidence of new loss of viable myocardium or new regional wall motion abnormality, or identification of intracoronary atherothrombosis or an acute angiographic culprit on coronary angiography. Rylan Fabian MD CHEMISTRY [facility] [employer] [facility] [address] [place] [address], * (ABNORMAL) PRO-BNP (10/29/2023 11:56 AM CDT) [facility] PRO-BNP 3,218(H) <450 pg/mL 10/29/2023 2:[address] [facility] Blood BLOOD SPECIMEN / Unknown Venipuncture / Unknown 10/29/2023 11:56 AM CDT 10/29/2023 12:19 PM CDT [facility] [employer] [facility] - 10/29/2023 2:40 PM CDT The following cut-points have been suggested for the use of proBNP for the diagnostic evaluation of heart failure (HF) in patient with acute dyspnea. Patients with eGFR >= 60 Diagnosis (rule in CHF) ? <50 Years Old ?450 pg/mL 50 - 75 Years Old ?900 pg/mL >75 Years Old ? 1800 pg/mL Exclusion (rule out CHF) Age Independent ?300 pg/mL A cutoff of 1200 pg/mL for patients with an eGFR <60 yields a diagnostic sensitivity of 89% and specificity of 72% for acute congestive heart failure. ? Rylan Fabian MD SEND OUTS [facility] [address] [place] [address], * CTA CHEST ABD PELVIS TAVR - DUAL READ (10/28/2023 1:49 PM CDT) Anatomical Region Laterality Modality CHEST, Abdomen, Pelvis Computed Tomography Impressions 10/29/2023 2:42 PM CDT 1. Please see separate dictation for all cardiac and arterial structures. 2. Circumferential wall thickening of the distal esophagus, which may reflect reflux esophagitis in the setting of a small to moderate hiatal hernia. This could be further characterized by endoscopy. 3. Otherwise, no acute abnormalities in the chest, abdomen, or pelvis. Please note that all CT scans at this facility use dose modulation, iterative reconstruction, and/or weight-based dosing when appropriate to reduce radiation dose to as low as reasonably achievable. Dictated by Jason Cruz MD @ 10/29/2023 1:10:17 PM (Electronic Signature) Narrative 10/29/2023 2:42 PM CDT Images from the original result were not included. STUDY: CTA CHEST, ABDOMEN, AND PELVIS TAVR Study date: 10/28/2023 Indication: 87 year-old woman with severe aortic valvular stenosis has been referred for evaluation of aortic valve annulus, thoracic aorta anatomy, and arterial access anatomy to determine candidacy for transcatheter aortic valve replacement (TAVR) procedure. STUDY PARAMETERS: Scanner: Siemens Definition Force Contrast: 100 ml of Omnipaque 350 Scan protocol: Helical with dose modulation for heart image acquisition. ?? High-pitch for chest, abdomen, and pelvis image acquisition. Radiation dose length product: 1262 for heart and chest, abdomen, pelvis imaging. Image quality: Good FINAL IMPRESSIONS: Moderately-severely calcified trileaflet aortic valve with calcium score of 2266 and reduced leaflet excursion. 4 mm protruding calcification in the left ventricular outflow tract. Type 1 aortic arch with normal thoracic aortic size and morphology. Severe calcification in the aortic arch. Normal abdominal aorta size and morphology. Severe calcification throughout the abdominal aorta. Moderate-severe stenosis in the proximal right renal artery. Small dissection in the proximal right common iliac artery. 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 Probable severe stenoses in the mid and distal RCA. Unable to fully evaluate mid-distal LAD, OM1, and proximal RCA. Please see radiology report for noncardiovascular findings. COMMENT/RECOMMENDATION: Best fitting prothesis options include the 26 mm America 3 balloon-expandable prosthesis with 4.4% oversizing, the 29 mm Evolut self-expanding prosthesis, the 29 mm Portico self-expanding prosthesis, or the 27 mm Acurate self-expanding prosthesis. Best arterial access site is left trans-carotid. Recommend catheter coronary angiography to further evaluate disease detected in the LAD and RCA if aortic valve replacement is pursued. FINDINGS: Aortic valve annulus and outflow tract: Aortic valve: ??Moderate calcified trileaflet valve with reduced leaflet opening excursion. Aortic valve calcium score: 2266 Aortic valve calcium score density (calcium score / annular area): 453 Aortic annular perimeter: 80 mm, area 497 mm2. Projection angle recommendations: ??For balloon expandable: ORTIZ 1? TEACHER KINDERGARTEN 5?For self expandable: ORTIZ 26? TEACHER KINDERGARTEN 16?? Annular plane to horizontal angle: 44?? Arterial access: Pelvic arteries (RIGHT): Common iliac artery: Nonobstructive atherosclerosis. Small proximal dissection. Internal iliac artery: Nonobstructive atherosclerosis. External iliac artery: Patent. Common femoral artery: Nonobstructive atherosclerosis. Pelvic arteries (LEFT): Common iliac artery: Moderate-severe stenosis. Distal to stenosis artery is aneurysmal: 21 x 18 mm Internal iliac artery: Severe ostial stenosis. External iliac artery: Patent. Common femoral artery: Nonobstructive atherosclerosis. Other findings: Coronary arteries: ??Dominance: Right coronary artery ??Left main: Nonobstructive atherosclerosis ??Left anterior descending artery: Moderate stenosis proximal to stent; stent in the proximal segment appears nonobstructive; cannot exclude obstructive disease in the mid-distal segment due to calcification ??Left circumflex artery: Nonobstructive atherosclerosis in the proper LCX; cannot exclude obstructive disease in the OM1 due to calcification ??Right coronary artery: Stents in proximal and mid segments; cannot exclude obstructive disease in the proximal segment due to dense calcification; probable severe stenoses in the mid and distal segments Left atrium: Normal contrast opacification Left ventricle septal ECV: 28% Pericardium: Normal without effusion. Thoracic aorta: Left-sided arch. Type 1 arch. Normal great artery branching pattern. Severe calcification in the arch, moderate in the descending thoracic aorta. Arch does not exhibit acute angulation. Maximum cross-sectional dimensions are: Aortic sinus: 33 mm maximum [id number]. Ascending aorta: 30 x 30 mm. Arch: 24 x 21 mm Descending thoracic aorta: 24 x 22 mm. Abdominal aorta: Normal size and morphology. Diffuse severe calcification. Abdominal aorta branch arteries: Celiac artery: Nonobstructive atherosclerosis. Superior mesenteric artery: Nonobstructive atherosclerosis. Right renal artery: Moderate-severe proximal stenosis. Left renal artery: Nonobstructive atherosclerosis. Inferior mesenteric artery: Patent. FOR PATIENT: Results are automatically released to your [employer] account once available, in compliance with federal regulations. ?? This means that you may see your results before your provider has had a chance to review them. ??Please allow 2-3 business days for your provider to comment on the results. Cesar Soria MD 10/28/2023 For Patients: As a result of the Century Cures Act, medical imaging exams and procedure reports are released immediately into your electronic medical record. ??You may view this report before your referring provider. ?? If you have questions, please contact your health care provider. OVER-READ ??OVER-READ ??OVER-READ OVER-READ: DETAILED RADIOLOGY EXTRACARDIAC OVER-READ OF CARDIAC CT 10/28/2023 TECHNIQUE: ??Please see cardiology report for technical information. ??100 cc Omnipaque-350 intravenous contrast. ?? This exam is being performed in conjunction with the services provided by the [facility] ([facility]). CLINICAL HISTORY: ?? Over-read of noncardiovascular structures. FINDINGS: ?? Please see separate dictation for all cardiac and arterial structures. CHEST: Cardiovascular structures: The unenhanced images demonstrate no evidence of aortic intramural hematoma. The entire aorta is normal in caliber and there is no sign of aortic dissection. Heart size is normal. Mediastinum and holley: Few mildly mediastinal lymph nodes. No mass. Lungs and pleura: Lungs are clear. No pleural effusions. Chest wall and axilla: No mass or adenopathy. Bones: Unremarkable for age. ABDOMEN AND PELVIS: Liver: Unremarkable. Gallbladder and bile ducts: Unremarkable. Pancreas: Atrophic pancreatic body. Spleen: Unremarkable. Adrenal glands: Unremarkable. Kidneys: Atrophic right kidney, primarily involving the upper pole. No suspicious masses. GI tract: Small to moderate hiatal hernia with circumferential wall thickening of the distal esophagus. Colonic diverticulosis diverticulitis Vascular structures: Please see the separately dictated cardiology dictation for characterization of the iliac artery abnormalities. Lymph nodes: Unremarkable. Miscellaneous: Unremarkable. No free air or significant free fluid. Pelvic Organs: Unremarkable. Bones: Diffuse osseous demineralization. Severe compression deformity of the T12 vertebral body with approximately 85 percent height loss centrally and [id number] bony retropulsion, resulting at least mild spinal canal stenosis. There Amos Cavazos MD CT * (ABNORMAL) HEMATOCRIT (10/22/2023) Pathologist [facility] HEMATOCRIT 36.4(A) 37.0 - 53.0 % Blood BLOOD SPECIMEN / Unknown 10/22/2023 Amos Cavazos MD HEMATOLOGY * CREATININE,ISTAT (10/22/2023) [facility] CREATININE 0.80 mg/dL Blood BLOOD SPECIMEN / Unknown 10/22/2023 Amos Cavazos MD CHEMISTRY * ECHO TTE COMPLETE WO CONTRAST (09/25/2023 1:49 PM CDT) Pathologist [facility] AORTIC VALVE MEAN PG 33 mmHg EJECTION FRACTION 58 % PEAK TR VELOCITY 2.7 m/s LVEDD 4.8 cm EJECTION FRACTION 60 - 65% Anatomical Region Laterality Modality Ultrasound 09/25/2023 1:07 PM CDT Narrative 09/25/2023 3:27 PM CDT ECHOCARDIOGRAM AMBIKA CODY ? Accession#: ?? [id number] : ?1935 87 years Study Date: ?? 09/25/2023 1:07:56 PM Gender: F ?BP: ? 142/55 mmHg Height: 163.00 cm ?BSA: ?1.72 m? ? ? Weight: 67.00 kg ? Tech: ? MSR ? Referring MD: BRIAN BEVERLY Site: ? [facility] Reading Location: Mobile OP Patient Location: Outpatient. Procedure: 2D, Color Doppler and Spectral Doppler. Indication for study: Cardiac murmur, unspecified Cardiac Rhythm: Irregular.Study quality: Fair. Final Impressions: 1. Normal LV size, normal wall thickness, normal function with an estimated EF of 60 - 65%. 2. Right ventricular cavity size is normal, global systolic RV function is normal. 3. Moderately enlarged left atrium. 4. The aortic valve is calcified and trileaflet, severe low flow/gradient stenosis and no regurgitation. WARREN 0.9cm2, MG 33mmHg, Vmax 3.6m/s, DI 0.24, SI 26ml/m2. 5. The mitral valve is sclerotic, mild to moderate mitral regurgitation. Comparison There are no prior studies on this patient for comparison purposes. Chamber Sizes and Function Normal left ventricular size, normal wall thickness, normal global systolic function with an estimated EF of 60 - 65%. Left atrial size is moderately enlarged. Right ventricular cavity size is normal, global systolic RV function is normal. RV wall thickness is normal. The right atrium is normal. Right atrial volume index is 22 ml/m? ? ?. Right atrial area is 16 cm? ? ?. The pulmonary artery is not well visualized. The sinus of Valsalva is normal sized. The ascending aorta is normal sized. Valves, RV Pressures and Diastolic Function The aortic valve is calcified and trileaflet, severe stenosis and no regurgitation. The mitral valve is sclerotic, mild to moderate mitral regurgitation. Indeterminate pattern of LV diastolic filling. The tricuspid valve is normal in structure. Tricuspid regurgitation is mild regurgitation. The tricuspid regurgitant velocity is 2.7 m/s, the estimated right ventricular systolic pressure is 29 mmHg plus right atrial pressure. The pulmonic valve is not well visualized. No pulmonary regurgitation. Masses, Effusion, Shunts There is no pericardial effusion. The inferior vena cava is normal sized, respiratory size variation greater than 50%. No left to right shunting was detected by limited color flow Doppler interrogation of the interatrial septum. MEASUREMENTS AND CALCULATIONS 2-D Measurements and LV Function: LVID (d) 4.8 cm LV FS% (2D) ?? 49 % LVID (s) 2.4 cm LVOT diameter 2.1 cm IVS (d) ??1.0 cm HR ?51 bpm LVPW (d) 1.0 cm LA Vol index ??39 ml/m2 Ao Sinus 3.1 cm RA Vol index ??22 ml/m2 Asc Ao ?? 3.2 cm RA area ? 16 cm?RV Max 4C (d) 3.5 cm Diastology: Mitral ?Tissue Doppler E Peak 1.2 m/s ??e', Septum ? 0.06 m/s A Peak 1.1 m/s ??e', Lateral ?0.06 m/s E/A ?1.1 ?E/e' Average ?? 20.83 DT ? 220 msec Aortic Valve: Vmax ? 3.6 m/s ??WARREN (V) ?? 0.89 cm? ? ? VTI ?0.98 m ?? WARREN (I) ?? 0.85 cm? ? ? LVOT V max 0.9 m/s ??Max PG ?53 mmHg LVOT VTI ?? 0.24 m ?? Mean PG ?? 33 mmHg SV ? 84 ml ?Dim Index 0.24 SV index ?? 49 ml/m? ? ? CO ?4.3 l/min ?CI ?2.5 l/min/m? ? ? Mitral Valve: MVA ? 3.4 cm? ? ? MV P 1/2 ??64 msec MV Mean G 5 mmHg MV VTI ?0.45 m Tricuspid Valve and estimated PA pressures: TR Vmax 2.7 m/s TAPSE 2.8 cm TR maxG 29 mmHg . This study was interpreted by an [facility] accredited facility. CC: [facility] ([facility]) [facility]. ??Final ?? Procedure Note Cj Lopez MD - 09/25/2023 ECHOCARDIOGRAM AMBIKA CODY : 1935 87 years Study Date: 09/25/2023 1:07:56 PM Gender: F BP: 142/55 mmHg Height: 163.00 cm BSA: 1.72 m? ? ? Weight: 67.00 kg Tech: DER Referring MD: BRIAN BEVERLY Site: [facility] Reading Location: Mobile OP Patient Location: Outpatient. Procedure: 2D, Color Doppler and Spectral Doppler. Indication for study: Cardiac murmur, unspecified Cardiac Rhythm: Irregular.Study quality: Fair. Final Impressions: 1. Normal LV size, normal wall thickness, normal function with anestimated EF of 60 - 65%. 2. Right ventricular cavity size is normal, global systolic RV functionis normal. 3. Moderately enlarged left atrium. 4. The aortic valve is calcified and trileaflet, severe low flow/gradientstenosis and no regurgitation. WARREN 0.9cm2, MG 33mmHg, Vmax 3.6m/s, DI0.24, SI 26ml/m2. 5. The mitral valve is sclerotic, mild to moderate mitralregurgitation. Comparison There are no prior studies on this patient for comparison purposes. Chamber Sizes and Function Normal left ventricular size, normal wall thickness, normal globalsystolic function with an estimated EF of 60 - 65%. Left atrial size ismoderately enlarged. Right ventricular cavity size is normal, globalsystolic RV function is normal. RV wall thickness is normal. The rightatrium is normal. Right atrial volume index is 22 ml/m? ? ?. Right atrialarea is 16 cm? ? ?. The pulmonary artery is not well visualized. The sinus ofValsalva is normal sized. The ascending aorta is normal sized. Valves, RV Pressures and Diastolic Function The aortic valve is calcified and trileaflet, severe stenosis and noregurgitation. The mitral valve is sclerotic, mild to moderate mitralregurgitation. Indeterminate pattern of LV diastolic filling. Thetricuspid valve is normal in structure. Tricuspid regurgitation is mildregurgitation. The tricuspid regurgitant velocity is 2.7 m/s, theestimated right ventricular systolic pressure is 29 mmHg plus right atrialpressure. The pulmonic valve is not well visualized. No pulmonaryregurgitation. Masses, Effusion, Shunts There is no pericardial effusion. The inferior vena cava is normal sized,respiratory size variation greater than 50%. No left to right shunting wasdetected by limited color flow Doppler interrogation of the interatrialseptum. MEASUREMENTS AND CALCULATIONS 2-D Measurements and LV Function: LVID (d) 4.8 cm LV FS% (2D) 49 % LVID (s) 2.4 cm LVOT diameter 2.1 cm IVS (d) 1.0 cm HR 51 bpm LVPW (d) 1.0 cm LA Vol index 39 ml/m2 Ao Sinus 3.1 cm RA Vol index 22 ml/m2 Asc Ao 3.2 cm RA area 16 cm? ? ? RV Max 4C (d) 3.5 cm Diastology: Mitral Tissue Doppler E Peak 1.2 m/s e', Septum 0.06 m/s A Peak 1.1 m/s e', Lateral 0.06 m/s E/A 1.1 E/e' Average 20.83 DT 220 msec Aortic Valve: Vmax 3.6 m/s WARREN (V) 0.89 cm? ? ? VTI 0.98 m WARREN (I) 0.85 cm? ? ? LVOT V max 0.9 m/s Max PG 53 mmHg LVOT VTI 0.24 m Mean PG 33 mmHg SV 84 ml Dim Index 0.24 SV index 49 ml/m? ? ? CO 4.3 l/min CI 2.5 l/min/m? ? ? Mitral Valve: MVA 3.4 cm? ? ? MV P 1/2 64 msec MV Mean G 5 mmHg MV VTI 0.45 m Tricuspid Valve and estimated PA pressures: TR Vmax 2.7 m/s TAPSE 2.8 cm TR maxG 29 mmHg . This study was interpreted by an [facility] accredited facility. CC: [facility] ([facility]) [facility]. Final Brian Beverly MD ECHO ORD * NM CARDIAC MPI STRESS TEST (09/24/2023 1:22 PM CDT) Anatomical Region Laterality Modality HEART Ultrasound 09/24/2023 12:1 4 PM CDT Narrative 09/24/2023 2:21 PM CDT ? Toll -free: [phone] ?[facility] ? MYOCARDIAL PERFUSION IMAGING REPORT REST/STRESS SINGLE ISOTOPE GATED SPECT IMAGING Patient Name: ?? AMBIKA CODY ? Gender: ? F ? Height: ? 64 in Accession #: ?[id number] ?Weight: ? 147 lb Study Date: ? 09/24/2023 12:14:13 PM ?BSA: ?1.72 m? ? ? : ?1935 87 years ? BMI: ?25.23 kg/m? ? ? Ord. Prov.: ? BRIAN BEVERLY ?Monitoring Prov.: Ruy Meadows Performing Site [facility] Clinical History: ? Chest pain. Known coronary artery disease. Cardiac Risk Factors: Hypertension, hypercholesterolemia, diabetes mellitus and ?family history of heart disease. Cardiac History: ?PCI x3, 2006. Beta volodymyr/calcium channel volodymyr/nitrate taken today: No. Caffeine/methylxanthine taken within 12 hrs: ?No. Chest pain/discomfort at baseline: ?Yes. IMPRESSION 1. Myocardial perfusion was normal. 2. The peak heart rate was 123 bpm (92% MPHR); peak blood pressure was 186 mmHg/79 mmHg. 3. Left ventricular cavity size was normal (resting EDV 105 ml). 4. Overall left ventricular systolic function was normal without wall motion abnormalities. The post stress LVEF was calculated to be 66 %. 5. Compared to prior study of August 29, 2010, there is no significant change. 6. See separate report for EKG intrepretation. STRESS MPI PROCEDURE The patient was studied utilizing a same day rest/stress protocol. Myocardial perfusion imaging was performed at rest, 32 minutes following the intravenous injection of 8.60 mCi of 99mTc sestamibi. At peak exercise, the patient was injected via IV with 30.6 mCi of 99mTc sestamibi and exercise was continued for 1:00 minute. Stress was stopped because of achieving target heart rate . Gated post-stress tomographic imaging correction was performed 19 minutes after stress. After image acquisition was completed, data was reconstructed in short, horizontal long and vertical long axis views and tomographic slices were generated. Protocol ??Total Time ? MPHR ?Max RPP Max Workload Hans ?? 6:19 minutes 92% of 134 bpm ??71015 ?7.1 METS ? HR ? BP Baseline 67 bpm ??172 mmHg/77 mmHg ?Peak 123 bpm 186 mmHg/79 mmHg FINDINGS Imaging - The overall quality of the study was excellent with mild soft tissue attenuation on rest and stress studies. Computerized motion correction was not applied. - SPECT perfusion images were normal without evidence of ischemia or infarction. - Computer processed gated imaging revealed normal left ventricular size with a calculated LVEF of 66 %. (Lab normals: LVEF >50%, LV Size <150 ml). - There was normal post-stress myocardial thickening and wall motion. - No right ventricular abnormalities were identified. - There was no evidence of abnormal lung or extracardiac activity. - Risk/extent of ischemia per ACC Noninvasive Risk Stratification Guideline: LOW RISK. This study was interpreted and electronically signed by Riley Paez MD on 09/24/2023 2:21:35 PM. ??Final ?? Procedure Note Riley Paez MD - 09/24/2023 Toll -free: [phone] [facility] MYOCARDIAL PERFUSION IMAGING REPORT REST/STRESS SINGLE ISOTOPE GATED SPECT IMAGING Patient Name: AMBIKA CODY Gender: F Height: 64 in Weight: 147 lb Study Date: 09/24/2023 12:14:13 PM BSA: 1.72 m? ? ? : 1935 87 years BMI: 25.23kg/m? ? ? Ord. Prov.: BRIAN BEVERLY Monitoring Prov.: Ruy Meadows Performing Site [facility] Clinical History: Chest pain. Known coronary artery disease. Cardiac Risk Factors: Hypertension, hypercholesterolemia, diabetesmellitus and family history of heart disease. Cardiac History: PCI x3, 2006. Beta volodymyr/calcium channel volodymyr/nitrate taken today: No. Caffeine/methylxanthine taken within 12 hrs: No. Chest pain/discomfort at baseline: Yes. IMPRESSION 1. Myocardial perfusion was normal. 2. The peak heart rate was 123 bpm (92% MPHR); peak blood pressure zpf572 mmHg/79 mmHg. 3. Left ventricular cavity size was normal (resting EDV 105 ml). 4. Overall left ventricular systolic function was normal without wallmotion abnormalities. The post stress LVEF was calculated to be 66 %. 5. Compared to prior study of August 29, 2010, there is no significantchange. 6. See separate report for EKG intrepretation. STRESS MPI PROCEDURE The patient was studied utilizing a same day rest/stress protocol.Myocardial perfusion imaging was performed at rest, 32 minutes followingthe intravenous injection of 8.60 mCi of 99mTc sestamibi. At peakexercise, the patient was injected via IV with 30.6 mCi of 99mTc sestamibiand exercise was continued for 1:00 minute. Stress was stopped because ofachieving target heart rate . Gated post-stress tomographic imagingcorrection was performed 19 minutes after stress. After image acquisitionwas completed, data was reconstructed in short, horizontal long andvertical long axis views and tomographic slices were generated. Protocol Total Time MPHR Max RPP Max Workload Hans 6:19 minutes 92% of 134 bpm 23898 7.1 METS HR BP Baseline 67 bpm 172 mmHg/77 mmHg Peak 123 bpm 186 mmHg/79 mmHg FINDINGS Imaging - The overall quality of the study was excellent with mild soft tissue attenuation on rest and stress studies. Computerized motion correction wasnot applied. - SPECT perfusion images were normal without evidence of ischemia orinfarction. - Computer processed gated imaging revealed normal left ventricular sizewith a calculated LVEF of 66 %. (Lab normals: LVEF >50%, LV Size <150 ml). - There was normal post-stress myocardial thickening and wall motion. - No right ventricular abnormalities were identified. - There was no evidence of abnormal lung or extracardiac activity. - Risk/extent of ischemia per ACC Noninvasive Risk StratificationGuideline: LOW RISK. This study was interpreted and electronically signed by Cem Overton 09/24/2023 2:21:35 PM. Final Brian RITCHIE from Last 3 Months Advance Directives * Full Code (Latest Code Status on File) Date Activated Date Inactivated Comments 2023 11:05 AM 2023 8:40 PM Question Answer Comments Code Status Discussion: Reviewed Preferences * Full Code Date Activated Date Inactivated Comments 06/14/2005 11:46 AM 06/15/2005 4:14 PM * Full Code Date Activated Date Inactivated Comments 06/14/2005 9:05 AM 06/14/2005 11:46 AM Care Teams Glue Drier Operator Relationship Specialty Start Date End Date Brian Beverly MD PCP - General 08/19/08
--- OUTSIDE RECORDS SUMMARY | 2023-12-24 10:44 | XMS_ITS | Encounter Summary ---
Author Organization [facility] Address [address] [place] [address] Care Team Providers Care Pari Mutuel Ticket Seller Name Role Phone Unavailable Primary Care Provider Unavailabl e Reason for Referral * Outpatient (Routine) - Closed Specialty Diagnoses / Procedures Referred By Jordan rubio Referred To Contact Diagnoses Abnormal Computed Tomography Procedures [place] Esophagram Double Contrast Mk Echols D.O. [address] [address], [facility] [address] [place] [address] [facility] Referral ID Status Reason Start Date Expiration Date Visits Re quested Visits Authorized [id number] Closed 12/04/2023 12/03/2024 1 1 Reason for Visit * Outpatient (Routine) - Closed Specialty Diagnoses / Procedures Referred By Jordan rubio Referred To Contact Diagnoses Abnormal Computed Tomography Procedures FL Esophagram Double Contrast Mk Echols D.O. [address] [address], [address] [address] [facility] Referral ID Status Reason Start Date Expiration Date Visits Re quested Visits Authorized [id number] Closed 12/04/2023 12/03/2024 1 1 Encounter Details Date Type Department Care Team (Latest Contact Info) Description 12/06/2023 8:20 AM CDT - 12/06/2023 11:59 PM CDT Hospital Encounter Department of Radiology, [facility], in [place], [place] [address] [place] [phone] Mk Echols D.O. [address] [address], [facility] [address] [place] [address] Amadeo Davila M.D. [address] [place] [phone] Abnormal Computed Tomography Discharge Disposition: Home or Self Care Social History Tobacco Use Types Packs/Day Years Used Date Smoking Tobacco: Never Dental Answer Date Recorded Dental: Regular Dentist Unknown 12/04/19 Sex and Gender Information Value Date Recorded Sex Assigned at Not on file Gender Identity Not on file Sexual Orientation Not on file documented as of this encounter Plan of Treatment Not on file documented as of this encounter Procedures Procedure Name Priority Date/Time Associated Diagnosis Comments FL ESOPHAGRAM DOUBLE CONTRAST RAD - Routine (most inpatients and all outpatients) 12/06/2023 9:16 AM CDT Abnormal Computed Tomography documented in this encounter Results * FL Esophagram Double Contrast (12/06/2023 [...] reflux esophagitis. 3. Esophagus otherwise normal. Mk KOTHARI FLUOROSCOPY PRO CEDURES documented in this encounter Visit Diagnoses Diagnosis Abnormal Computed Tomography documented in this encounter Administered Medications Inactive Administered Medications - up to 3 most recent administrations Medication Order MAR Action Action Date Dose Rate Site barium 60 % (w/v) suspension 355 mL (Liquid E-Z-Paque) 355 mL, oral, Once in imaging, contrast, Starting on Sat12/06/23 at 0902, For 1 dose Given 12/06/2023 9:05 AM CDT 125 mL barium 98 % oral powder for suspension 340 mL (E-Z-HD) 340 mL, oral, Once in imaging, contrast, Starting on Sat12/06/23 at 0902, For 1 dose Given 12/06/2023 9:04 AM CDT 200 mL sodium bicarbonate-citric acid-simethicone effervescent packet 1 packet (E-Z-Gas II) 1 packet, oral, Once, On Sat12/06/23 at 0930, For 1 dose Given 12/06/2023 9:04 AM CDT 1 packet documented in this encounter
--- OUTSIDE RECORDS SUMMARY | 2023-12-24 10:44 | XMS_ITS | Referral Summary ---
Author Organization [facility] Address [address] [place] [address] Care Team Providers Care Dance Choreographer Name Role Phone Unavailable Primary Care Provider Unavailabl e Source Comments Patient records contain information from all sites at [facility]. For routine questions regarding patient records, call [phone] during business hours, M-F 8:00 AM - 5:00 PM Central Time. Record requests for emergency care only can be directed to [phone] at any time.[facility] Encounters Date Type Department Care Team Description 12/06/2023 8:20 AM CDT - 12/06/2023 11:59 PM CDT Hospital Encounter Department of Radiology, [facility], in [place], [place] [address] [place] [phone] Mk Echols D.O. Bullis, Brent R, M.D. [...] Mass Index - - Plan of Treatment Not on file Procedures Procedure Name Priority Date/Time Associated Diagnosis [...]
--- OUTSIDE RECORDS SUMMARY | 2023-12-24 10:44 | XMS_ITS ---
Author Organization [facility] Address [address] [place] [address] Care Team Providers Care Flarer Name Role Phone Unavailable Unavailable Unavailable Surgery Details Not on file Complications Check Surgery Details section. Procedure Estimated Blood Loss Check Surgery Details section. Procedure Findings Check Surgery Details section. Procedure Specimens Taken Check Surgery Details section.
--- OUTSIDE RECORDS SUMMARY | 2023-12-24 10:45 | XMS_ITS | Clinical Summary ---
Author Organization [employer] Address [address] [place] [address] Phone Care Team Providers Care Final Coat Sprayer Name Role Phone Kathia Velazquez PT Unavailable [phone] Source Comments [employer] is fully rolled out on [employer]. Last update 09/03/08.[employer] Allergies Active Allergy Reactions Criticality Noted Date [...] Compression fracture of T12 vertebra, initial encounter ([facility]) 01/20/2023 Social History Tobacco Use Types Packs/Day [...] Comments Blood Pressure 152/67 04/12/2023 12:35 PM RANGE MASTER Pulse 78 04/12/2023 12:35 PM RANGE MASTER Temperature 35.9 ??C (96.7 ??F) 03/01/2023 12:39 [...] Dental Prophylaxis 1937 Dental X-Ray: Bitewings 1937 Diabetes Education 1938 Diabetes Eye Exam 1938 Diabetes Foot Exam 1938 Diabetes HGB A1C Q 3 Months (Goal <7) 1938 Diabetes Microalbumin Screening 1938 Diabetic Education Protocol (CDE) 1938 Diabetic Lab Protocol 1938 Lipid Screening 1938 Periodontal Maintenance 11/16/1951 Medicare Annual Wellness 11/16/1955 PREVENTATIVE VISIT 11/16/1955 HEALTH MAINTENANCE PROTOCOL 1956 Osteoporosis Screening (Dexa Scan) 2002 Imm: Pneumonia greater than 65 years (2 of 2 - PCV) 08/03/2008 08/04/2007 Imm: COVID-19 ( season) 2023 06/18/2020 Imm: Flu (#1) 12/01/2023 02/08/2022, 12/01, 01/09/2019, Additional history exists Imm: DTaP/Tdap (5 - Td or Tdap) 02/21/2032 02/20/2022, 08/28/2011, 07/19/2006, Additional history exists Imm: Zoster Completed 12/15/2018, 10/14/2018 Imm: HPV Aged Out No longer eligi ble based on patient's age to complete this topic Imm: HepA Aged Out No longer eligi ble based on patient's age to complete this topic Imm: HepB Aged Out No longer eligi ble based on patient's age to complete this topic Imm: Hib Aged Out No longer eligi ble based on patient's age to complete this topic Imm: Meningitis Aged Out No longer el igible based on patient's age to complete this topic Advance Directives For more information, please contact: [phone] * Full Code (Latest Code Status on File) Date Activated Date Inactivated Comments 01/20/2023 8:30 PM 01/22/2023 6:55 PM Question Answer Comments Does the Patient have prefer ences regarding life sustaining measures (these options only apply when the patient has a pulse): No Discussed Code Status With Whom? Not discussed Care Teams Final Coat Sprayer Relationship Specialty Start Date End Date Kathia Velazquez, PT [address] [place] [address] Physical Therapist Physical Therapy 01/22/23
--- OUTSIDE RECORDS SUMMARY | 2023-12-24 10:45 | XMS_ITS | Referral Summary ---
Author Organization [employer] Address [address] [place] [address] Phone Care Team Providers Care String Winding Machine Operator Name Role Phone Kathia Velazquez PT Unavailable [phone] Source Comments [employer] is fully rolled out on [employer]. Last update 09/03/08.[employer] Allergies Active Allergy Reactions Criticality Noted Date [...] Compression fracture of T12 vertebra, initial encounter ([facility]) 01/20/2023 Social History Tobacco Use Types [...] Comments Blood Pressure 152/67 04/12/2023 12:35 PM BOTTLE PACKER Pulse 78 04/12/2023 12:35 PM BOTTLE PACKER Temperature 35.9 ??C (96.7 ??F) 03/01/2023 12:39 [...] Advance Directives For more information, please contact: [phone] * Full Code (Latest Code Status on File) Date Activated Date Inactivated Comments 01/20/2023 8:30 PM 01/22/2023 6:55 PM Question Answer Comments Does the Patient have prefer ences regarding life sustaining measures (these options only apply when the patient has a pulse): No Discussed Code Status With Whom? Not discussed Care Teams String Winding Machine Operator Relationship Specialty Start Date End Date Kathia Velazquez, PT [address] [place] [address] Physical Therapist Physical Therapy 01/22/23
== END 2023-12-24 10:39 | disposition home or self-care (01) ==
PROVIDERS: PCP Family Medicine; Visit Provider Family Medicine
DX: E03.9 Hypothyroidism, unspecified (principal); Z13.21 Encounter for screening for nutritional disorder
CPT/HCPCS: 82607; 84443

== ENCOUNTER 2024-01-17 11:46 | Outpatient (CLI) | payer OTHER, SELFPAY ==
--- OUTSIDE RECORDS SUMMARY | 2024-01-17 11:49 | XMS_ITS ---
Author Organization [facility] Address [address] [place] [address] Care Team Providers Care Shoes Salesperson Name Role Phone Unavailable Unavailable Unavailable Surgery Details Not on file Complications Check Surgery Details section. Procedure Estimated Blood Loss Check Surgery Details section. Procedure Findings Check Surgery Details section. Procedure Specimens Taken Check Surgery Details section.
--- OUTSIDE RECORDS SUMMARY | 2024-01-17 11:49 | XMS_ITS | Referral Summary ---
Author Organization [facility] Address [address] [place] [address] Care Team Providers Care Medical Cash Poster Name Role Phone Unavailable Primary Care Provider Unavailabl e Source Comments Patient records contain information from all sites at [facility]. For routine questions regarding patient records, call [phone] during business hours, M-F 8:00 AM - 5:00 PM Central Time. Record requests for emergency care only can be directed to [phone] at any time.[facility] Encounters Date Type Department Care Team Description 12/06/2023 8:20 AM CDT - 12/06/2023 11:59 PM CDT Hospital Encounter Department of Radiology, [facility], in [place], [place] [address] [place] [phone] Mk Echols D.O. Bullis, Brent R, M.D. 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 3. Esophagus otherwise normal. us Mk Echols D.O. IMG FLUOROSCOPY PROCEDURES Final Result from Last 3 Months Insurance [facility]
--- OUTSIDE RECORDS SUMMARY | 2024-01-17 11:49 | XMS_ITS | Clinical Summary ---
Author Organization [facility] Address [address] [place] [address] Care Team Providers Care Sliver Lap Machine Tender Name Role Phone Unavailable Primary Care Provider Unavailabl e Source Comments Patient records contain information from all sites at [facility]. For routine questions regarding patient records, call [phone] during business hours, M-F 8:00 AM - 5:00 PM Central Time. Record requests for emergency care only can be directed to [phone] at any time.[facility] Encounters Date Type Department Care Team Description 12/06/2023 8:20 AM CDT - 12/06/2023 11:59 PM CDT Hospital Encounter Department of Radiology, [facility], in [place], [place] [address] [place] [phone] Mk Echols D.O. Bullis, Brent R, M.D. Abnormal Computed Tomography Discharge Disposition: Home or Self Care from Last 3 Months Social History Tobacco Use Types Packs/Day Years Used Date Smoking Tobacco: Never Dental Answer Date Recorded Dental: Regular Dentist Unknown 12/04/19 24 Comments Unknown Sex and Gender Information Value Date Recorded Sex Assigned at Not on file Legal Sex Female 4:49 PM TWIST MAKER Gender Identity Not on file Sexual Orientation [...] 3. Esophagus otherwise normal. Mk Echols D.O. IM FLUOROSCOPY PROCEDURES Final Result from Last 3 Months Insurance [facility]
--- OUTSIDE RECORDS SUMMARY | 2024-01-17 11:49 | XMS_ITS | Encounter Summary ---
Author Organization [facility] Address [address] [place] [address] Care Team Providers Care Adjunct Instructor Name Role Phone Unavailable Primary Care Provider Unavailabl e Reason for Referral * Outpatient (Routine) - Closed Specialty Diagnoses / Procedures Referred By Jordan rubio Referred To Contact Diagnoses Abnormal Computed Tomography Procedures [place] Esophagram Double Contrast Mk Echols D.O. [address] [address], [facility] [address] [place] [address] Phone: tel: [facility] Referral ID Status Reason Start Date Expiration Date Visits Re quested Visits Authorized [id number] Closed 12/04/2023 12/03/2024 1 1 Reason for Visit * Outpatient (Routine) - Closed Specialty Diagnoses / Procedures Referred By Jordan rubio Referred To Contact Diagnoses Abnormal Computed Tomography Procedures [place] Esophagram Double Contrast Mk Echols D.O. [address] [address], [facility] [address] [place] [address] Phone: tel: [facility] Referral ID Status Reason Start Date Expiration Date Visits Re quested Visits Authorized [id number] Closed 12/04/2023 12/03/2024 1 1 Encounter Details Date Type Department Care Team (Latest Contact Info) Description 12/06/2023 8:20 AM CDT - 12/06/2023 11:59 PM CDT Hospital Encounter Department of Radiology, [facility], in [place], [place] [address] [place] [phone] Mk Echols D.O. [address] [address], [facility] [address] [place], [place] [id number] Amadeo Davila M.D. 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 Esophagus otherwise normal. Mk KOTHARI FLUOROSCOPY PROCEDURES Final Result documented in this encounter Visit Diagnoses Diagnosis [...]
--- OUTSIDE RECORDS SUMMARY | 2024-01-17 11:50 | XMS_ITS | Referral Summary ---
Author Organization [employer] Address [address] [place] [address] Phone Care Team Providers Care Hassock Maker Name Role Phone Kathia Velazquez PT Unavailable [phone] Source Comments [employer] is fully rolled out on [employer]. Last update 09/03/08.[facility] Allergies Active Allergy Reactions Criticality Noted Date [...] Compression fracture of T12 vertebra, initial encounter ([facility]) 01/20/2023 Social History Tobacco Use Types [...] Comments Blood Pressure 152/67 04/12/2023 12:35 PM TOWER CONTROL OPERATOR Pulse 78 04/12/2023 12:35 PM TOWER CONTROL OPERATOR Temperature 35.9 ??C (96.7 ??F) 03/01/2023 12:39 [...] Advance Directives For more information, please contact: [phone] * Full Code (Latest Code Status on File) Date Activated Date Inactivated Comments 01/20/2023 8:30 PM 01/22/2023 6:55 PM Question Answer Comments Does the Patient have prefer ences regarding life sustaining measures (these options only apply when the patient has a pulse): No Discussed Code Status With Whom? Not discussed Care Teams Hassock Maker Relationship Specialty Start Date End Date Kathia Velazquez, PT [address] [place] [address] Physical Therapist Physical Therapy 01/22/23
--- OUTSIDE RECORDS SUMMARY | 2024-01-17 11:50 | XMS_ITS | Clinical Summary ---
Author Organization [employer] Address [address] [place] [address] Phone Care Team Providers Care Psychodramatist Name Role Phone Kathia Velazquez PT Unavailable [phone] Source Comments [employer] is fully rolled out on [employer]. Last update 09/03/08.[facility] Allergies Active Allergy Reactions Criticality Noted Date [...] Compression fracture of T12 vertebra, initial encounter ([facility]) 01/20/2023 Social History Tobacco Use Types Packs/Day [...] Comments Blood Pressure 152/67 04/12/2023 12:35 PM LIVESTOCK YARD SUPERVISOR Pulse 78 04/12/2023 12:35 PM LIVESTOCK YARD SUPERVISOR Temperature 35.9 ??C (96.7 ??F) 03/01/2023 12:39 [...] Advance Directives For more information, please contact: [phone] * Full Code (Latest Code Status on File) Date Activated Date Inactivated Comments 01/20/2023 8:30 PM 01/22/2023 6:55 PM Question Answer Comments Does the Patient have prefer ences regarding life sustaining measures (these options only apply when the patient has a pulse): No Discussed Code Status With Whom? Not discussed Care Teams Psychodramatist Relationship Specialty Start Date End Date Kathia Velazquez, PT [address] [place] [address] Physical Therapist Physical Therapy 01/22/23
== END 2024-01-17 11:47 | disposition home or self-care (01) ==
LOC: LKVREF 11:48
PROVIDERS: PCP Family Medicine; Visit Provider Family Medicine
DX: R74.8 Abnormal levels of other serum enzymes (principal)
CPT/HCPCS: 80076

== ENCOUNTER 2024-03-17 13:04 | Outpatient (CLI) | payer OTHER, SELFPAY | END 2024-03-17 13:05 | disposition home or self-care (01) | LOC: NFLDREF 03-18 14:37 | PROVIDERS: PCP Family Medicine; Referring Provider Family Medicine; Visit Provider Family Medicine | DX: Z79.01 Long term (current) use of anticoagulants (principal); I48.91 Unspecified atrial fibrillation | CPT/HCPCS: 85610 ==

== ENCOUNTER 2024-04-28 11:14 | Outpatient (CLI) | payer MEDICARE, BC, SELFPAY | END 2024-04-28 11:15 | disposition home or self-care (01) | LOC: NFLDREF 04-29 06:35 | PROVIDERS: PCP Family Medicine; Referring Provider Family Medicine; Visit Provider Family Medicine | DX: Z79.01 Long term (current) use of anticoagulants (principal); Z95.2 Presence of prosthetic heart valve; Z95.1 Presence of aortocoronary bypass graft; Z95.5 Presence of coronary angioplasty implant and graft; I10 Essential (primary) hypertension; E13.9 Other specified diabetes mellitus without complications; R19.7 Diarrhea, unspecified | CPT/HCPCS: 85610 ==

== ENCOUNTER 2024-05-05 15:23 | Outpatient (CLI) | payer MEDICARE, BC, SELFPAY | END 2024-05-05 15:24 | disposition home or self-care (01) | LOC: NFLDREF 05-06 07:44 | PROVIDERS: PCP Family Medicine; Referring Provider Family Medicine | DX: N89.8 Other specified noninflammatory disorders of vagina (principal); B37.31 Acute candidiasis of vulva and vagina; R19.7 Diarrhea, unspecified | CPT/HCPCS: 87086 ==

== ENCOUNTER 2024-05-06 13:31 | Outpatient (CLI) | payer MEDICARE, BC, SELFPAY | END 2024-05-06 13:32 | disposition home or self-care (01) | LOC: NFLDREF 05-13 01:03 | PROVIDERS: PCP Family Medicine; Referring Provider Family Medicine | DX: R19.7 Diarrhea, unspecified (principal) | CPT/HCPCS: 87505 ==

== ENCOUNTER 2024-05-13 14:16 | Outpatient (CLI) | payer MEDICARE, BC, SELFPAY | END 2024-05-13 14:17 | disposition home or self-care (01) | LOC: LKVREF 14:16 | PROVIDERS: PCP Family Medicine; Visit Provider Family Medicine | DX: Z95.2 Presence of prosthetic heart valve (principal); Z79.01 Long term (current) use of anticoagulants | CPT/HCPCS: 85610 ==

== ENCOUNTER 2024-05-14 03:30 | Outpatient (CLI) | payer MEDICARE, BC, SELFPAY | END 2024-05-14 03:31 | disposition home or self-care (01) | LOC: NFLDREF 05-16 03:15 | PROVIDERS: PCP Family Medicine; Referring Provider Family Medicine; Visit Provider Family Medicine | DX: R19.7 Diarrhea, unspecified (principal) | CPT/HCPCS: 87493 ==

== ENCOUNTER 2024-05-21 12:15 | Emergency (ER) | payer MEDICARE, BC, SELFPAY ==
--- OUTSIDE RECORDS SUMMARY | 2024-05-21 12:17 | XMS_ITS | Encounter Summary ---
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 [address] Phone: tel: fax: [facility] Region Referral ID Status Reason Start Date Expiration Date V isits Requested Visits Authorized [id number] Authorized 02/20/2024 02/19/2025 45 45 Encounter Details Date Type Department Care Team (Latest Contact Info) Description 05/01/2024 1:50 PM HAT BRUSHER MACHINE - 05/01/2024 11:59 PM HAT BRUSHER MACHINE Hospital Encounter Department of Cardiac Rehabilitation in [place], [place] [address] [place] [phone] Keon Peace M.D. [address] [place] [phone] Replacement Aortic Valve Tissue; Coronary Arterial Bypass Graft Status Post Personal History Discharge Disposition: Home or Self Care Social History Tobacco Use Types Packs/Day Years Used Date Smoking Tobacco: Never Dental Answer Date Recorded Dental: Regular Dentist Unknown 12/04/19 24 Comments Unknown Sex and Gender Information Value Date Recorded Sex Assigned at Not on file Legal Sex Female 4:49 PM HAT BRUSHER MACHINE Gender Identity Not on file Sexual Orientation Not on file documented as of this encounter Plan of Treatment Upcoming Encounters Date Type Department Care Team (Late st Contact Info) Description 05/22/2024 2:00 PM HAT BRUSHER MACHINE Appointment Department of Cardiac Rehabilitation in [place] [address] [place] [address] Keon Peace M.D. [address] [place] [phone] 05/25/2024 2:00 PM HAT BRUSHER MACHINE Appointment Department of Cardiac Rehabilitation in [place] [address] [place] [address] Keon Peace M.D. [address] [place] [phone] 05/27/2024 2:00 PM HAT BRUSHER MACHINE Appointment Department of Cardiac Rehabilitation in [place] [address] [place] [address] Keon Peace M.D. [address] [place] [address] 05/29/2024 2:00 PM HAT BRUSHER MACHINE Appointment Department of Cardiac Rehabilitation in [place] [address] [place] [address] Keon Peace M.D. [address] [place], [place] [address], [place] [address] 06/01/2024 2:00 PM HAT BRUSHER MACHINE Appointment Department of Cardiac Rehabilitation in [place], [place] [address] [place] [address] Keon Peace M.D. [address] [facility] [place] [address] 06/03/2024 2:00 PM HAT BRUSHER MACHINE Appointment Department of Cardiac Rehabilitation in [place] [address] [place] [address] Keon Peace M.D. [address] [place] [address], [place] [address] 06/05/2024 2:00 PM HAT BRUSHER MACHINE Appointment Department of Cardiac Rehabilitation in [place] [address] [place] [address] Keon Peace M.D. [address] [place] [address], [place] [address] 06/08/2024 2:00 PM CDT Appointment Department of Cardiac Rehabilitation in [place] [address] [place] [address] Keon Peace M.D. [address] [place] [address], [place] [address] 06/10/2024 2:00 PM CDT Appointment Department of Cardiac Rehabilitation in [place] [address] [place] [address] Keon Peace M.D. [address] [facility] [place] [address] 06/12/2024 2:00 PM CDT Appointment Department of Cardiac Rehabilitation in [place], [place] [address] [place] [phone] Keon Peace M.D. 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
--- OUTSIDE RECORDS SUMMARY | 2024-05-21 12:17 | XMS_ITS | Encounter Summary ---
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 [address] Phone: tel: fax: [facility] Region Referral ID Status Reason Start Date Expiration Date V isits Requested Visits Authorized [id number] Authorized 02/20/2024 02/19/2025 45 45 Encounter Details Date Type Department Care Team (Latest Contact Info) Description 04/08/2024 1:43 PM PULL OUT OPERATOR - 04/08/2024 11:59 PM PULL OUT OPERATOR Hospital Encounter Department of Cardiac Rehabilitation in [place], [place] [address] [place] [phone] Keon Peace M.D. [address] [place] [phone] Replacement Aortic Valve Tissue; Coronary Arterial Bypass Graft Status Post Personal History Discharge Disposition: Home or Self Care Social History Tobacco Use Types Packs/Day Years Used Date Smoking Tobacco: Never Dental Answer Date Recorded Dental: Regular Dentist Unknown 12/04/19 24 Comments Unknown Sex and Gender Information Value Date Recorded Sex Assigned at Not on file Legal Sex Female 4:49 PM PULL OUT OPERATOR Gender Identity Not on file Sexual Orientation Not on file documented as of this encounter Plan of Treatment Upcoming Encounters Date Type Department Care Team (Late st Contact Info) Description 05/22/2024 2:00 PM PULL OUT OPERATOR Appointment Department of Cardiac Rehabilitation in [place] [address] [place] [address] Keon Peace M.D. [address] [place] [phone] 05/25/2024 2:00 PM PULL OUT OPERATOR Appointment Department of Cardiac Rehabilitation in [place] [address] [place] [address] Keon Peace M.D. [address] [place] [phone] 05/27/2024 2:00 PM PULL OUT OPERATOR Appointment Department of Cardiac Rehabilitation in [place] [address] [place] [address] Keon Peace M.D. [address] [place] [address] 05/29/2024 2:00 PM PULL OUT OPERATOR Appointment Department of Cardiac Rehabilitation in [place] [address] [place] [address] Keon Peace M.D. [address] [place], [place] [address], [place] [address] 06/01/2024 2:00 PM PULL OUT OPERATOR Appointment Department of Cardiac Rehabilitation in [place], [place] [address] [place] [address] Keon Peace M.D. [address] [facility] [place] [address] 06/03/2024 2:00 PM PULL OUT OPERATOR Appointment Department of Cardiac Rehabilitation in [place] [address] [place] [address] Keon Peace M.D. [address] [place] [address], [place] [address] 06/05/2024 2:00 PM PULL OUT OPERATOR Appointment Department of Cardiac Rehabilitation in [place] [address] [place] [address] Keon Peace M.D. [address] [place] [address], [place] [address] 06/08/2024 2:00 PM CDT Appointment Department of Cardiac Rehabilitation in [place] [address] [place] [address] Keon Peace M.D. [address] [place] [address], [place] [address] 06/10/2024 2:00 PM CDT Appointment Department of Cardiac Rehabilitation in [place] [address] [place] [address] Keon Peace M.D. [address] [facility] [place] [address] 06/12/2024 2:00 PM CDT Appointment Department of Cardiac Rehabilitation in [place], [place] [address] [place] [phone] Keon Peace M.D. 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
--- OUTSIDE RECORDS SUMMARY | 2024-05-21 12:17 | XMS_ITS | Encounter Summary ---
Author Organization [facility] Address [address] [place] [address] Care Team Providers Care Commercial Sales Specialist Name Role Phone None Reported, Pcp Primary Care Provider Unavail able Encounter Details Date Type Department Care Team (Latest Contact Info) Description 05/14/2024 Plan of Care Documentation Department of Cardiac Rehabilitation in [place] [address] [place] [address] Social History Tobacco Use Types Packs/Day Years Used Date Smoking Tobacco: Never Dental Answer Date Recorded Dental: Regular Dentist Unknown 12/04/19 24 Comments Unknown Sex and Gender Information Value Date Recorded Sex Assigned at Not on file Legal Sex Female 4:49 PM [employer] Gender Identity Not on file Sexual Orientation Not on file documented as of this encounter Miscellaneous Notes * Specialty Plan of Care - Jyoti King C.Ph.T. - 05/14/2024 10:00 AM CST Images from the original note were not included. Ms. Cody (88 y.o., : 1935, ) was referred to the [facility] on 02/10/2024, by Lakisha and has completed 28 sessions out of the 36 prescribed. 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 Patient has attended 11 sessions of cardiac rehab and feels it has been going well. Patient had Aortic valve replace ment with [id number] mm tissue valve, Coronary artery bypass grafting x3 (LUGO - > LAD, SVG ->PDA, SVG -> OM1) on 12/31 with Atrial fibrillation post op and feels as though she is progressingwell throughout the program.Denies any other cardiovascular signs or symptoms. No Afib noted durungCR. Pt has attended 21 sessions of CR. Pt denies any CP, SOB, dizziness. Pt has been feeling well. She feels she is getting stronger and progressing well. Limited ITP due to patient not being in attendance today Cardiovascular Symptoms None None None None R Breath Sounds Unable to assess L Breath Sounds Unable to assess Home O2 Use No No No Edema Location Generalized;Left lower extremity;Right lower extremity Generalized Edema Unable to assess Edema RLE Severity Unable to assess Edema LLE Severity Unable to assess Ejection Fraction Date 01/03/2024 01/03/2024 01/03/2024 01/03/2024 Ejection Fraction (EF) % 55 % 55 % 55 % 55 % [place] [employer] Functional Class I - Normal exertion ability I - Normal exertion ability Comments Patient has completed 28 sessions of cardiac rehab and continues to feel positive about it. Patient last attended cardiac rehab on 05/01/24, but has been out ill since. She is hopeful that she will be able to tolerate sessions soon and is following up with her providers. Patient denies any CV signs or symptoms at this time. Staff will continue to provide education and support on CV signs and symptoms as appropriate in upcoming sessions. Other Education Documentation No documentation found. Exercise Assessment 02/20/2024 Fall Risk ITP Inclusion: Fall Risk Initial Have you fallen within the last year or do you fear you might fall? No Do you use an assisted device to walk? (Walker, cane, wheelchair, crutch) No Today, do you feel any of the following? Weak, dizzy, shaky, or unsteady? No Have you taken any medication within the last 6 hours which may make you feel drowsy? Such as sleep, pain, or anxiety medication No Six Minute Walk 02/24/2024 Total Distance Walked (Meters) 307.54 Estimated METs 2.46 % of Predicted Distance 84.64 Comments Pt tolerated 6 min walk well. 02/20/2024 02/24/2024 03/18/2024 04/16/2024 05/14/2024 Exercise Assessment ITP Inclusion: Exercise Assessment Initial Initial Reassessment Reassessment Reassessment Resting HR 68 Resting HR (Telemetry) 68 Resting Pulse 68 68 Cardiac Rhythm SR SR SR SR Ectopy PVCs PVCs PVCs PVCs Ectopy Frequency Rare Rare Rare Rare Exercise Limitations No No No No No Assistive Device None None None None ADLs Independent Independent Independent Independent Peak METs 1.59 3.22 3.3 3.7 Aerobic Minutes per Day (Home) 0 minutes 0 minutes 0 minutes Aerobic Days per Week (Home) 0 Days 0 Days 0 Days Aerobic Minutes per Day (Rehab) 3 minutes 50 minutes 50 minutes 0 minutes Aerobic Days per Week (Rehab) 3 Days 3 Days 0 Days Aerobic Minutes per Week 150 0 Strength Training Days per Week 0 Days Flexibility Training Days per Week 0 30 second chair stand 1 Comments Pt tolerated first exercise sesssion well, no c/o Patient states that she walks and does steps several times a day. No formal exercise routine with home TM Pt has been doing stairs 10xs/day.She has been doing things around the house to stay active. Pt has also been shopping. She has a treadmill at home. 02/20/2024 03/19/2024 04/16/2024 05/14/2024 Exercise Prescription Frequency of Sessions Weekly Weekly Weekly Weekly Sessions per week 3 times per week 3 times per week 3 times per week 3-5 times weekly Intensity Work at a level that is comfortable but also challenging Work at a level that is comfortable but also challenging Work at a level that is comfortable but also challenging Work at a level that is comfortable but also challenging Target heart rate (pulse): 20-40 greater than RHR 20-40 greater than RHR 20-40 greater than RHR Rating of Perceived Exertion range (RPE): 02-11 METS: 2-3 2.5-3.5 2.5-3.5 Warm Up Minutes: 3-5 3-5 3-5 3-5 Aerobic exercise minutes: 30 50 50 45-60 Cool Down minutes: 3-5 3-5 3-5 3-5 Goal Minutes/Week Gradually progress to 150+ minutes of aerobic exercise per week. Gradually progress to 150+ minutes of aerobic exercise per week Gradually progress to 150 + minutes of aerobic exercise per week. Progress to 150+ minutes of moderate intensity aerobic exercise weekly Rehab Aerobic Exercise Equipment Recumbent stepper (with or without arms);Treadmill;Arm Ergometer Arm Ergometer;Treadmill;Recumbent stepper (with or without arms) Arm Ergometer;Treadmill;Recumbent stepper (with or without arms) Treadmill;Arm Ergometer;Recumbent stepper (with or without arms) Non-Rehab Aerobic Exercise Equipment Walking Walking Walking Progression Use RPE to guide when to increase work level intensity and duration;Increase 1-5 minutes each session, as tolerated Use RPE to guide when to increase work level intensity and duration;Increase .25-.5 MET per week as tolerated Use RPE to guide when to increase work level intensity and dur ation;Increase .25-.5 MET per week as tolerated Use RPE to guide when to increase work level intensity and duration Flexibility and Balance Stretch major muscle groups daily Stretch major muscle groups daily Stretchmajor muscle groups daily Stretch major muscle groups daily Sternal precautions Yes Yes Sternal precautions comment s/p AVR/CABG 12/31- continue 20lb weight limit until 03/15 Wt restrictions are off for lifting Strength Training Free weights Number of strength sessions per week: 2-3 Weight: 2 Reps: 15 Sets: 1 Hobbies/Activities Avoid prolonged sitting Avoid prolonged sitting Shopping;Gardening/Yardwork/Housework Avoid prolonged sitting;Gardening/Yardwork/Housework;Shopping Comments: Pt has stairs at home that she is walking 10x/day. She stays active doing things around the house. Pt also has a treadmill. Patient has been ill over the past couple weeks and has not feltup to completing any home exercise. Patient continues to follow up with providers as needed. 02/20/2024 03/19/2024 04/16/2024 05/14/2024 Exercise Plan Goals Compliance to on-site program;Increase exercise duration;Improve exercise tolerance Compliance to on-site program;Increase exercise duration;Improve exercise tolerance Compliance to on-site program;Increase exercise duration;Improve exercise tolerance Compliance to on-site program;Increase exe rcise duration;Improve exercise tolerance;Establish independent exercise routine Interventions Facility orientation;Review of signs/symptoms to report;Therapist Discussion Therapist Discussion Therapist Discussion Therapist Discussion;Home activity log reviewed Progress Toward Goals Patient would like to build exercise tolerance and duration .Will monitor andeducate patient on exercise progression at upcoming sessions. Goals remain ongoing..Patient tolerating up to 50 minutes of aerobic exercise in cardiac rehab. Patient is walking around home and several steps a day. Will continue to monitor and educate patient on exercise progression at upcoming sessions. Pt continues to attend CR 3xs/week.. She has been staying active at home walking around the house doing stairs 10x/day. He also has a treadmill at home. Pt continues to increase resistnace and time on modalities while attending CR. Patient continues to work towards her exercise goals. Patient has not attended cardiac rehab recently due to illness and has admittedly not been exercising at home due to it either. Patient is hopeful that she can resume her normal activities soon and come back to cardiac rehab. Staff will continue to provide education and support on exercise plan in upcoming s essions. Exercise Education Documentation Exercise Program Guidelines [id number], taught by Gosia Rivas R.N. at 03/13/2024 10:24 AM. Learner: Patient Readiness: Eager Method: Explanation Response: Able to Teach Back Move More and Sit Less the NEAT Way [id number], taught by Gosia Rvias R.N. at 04/22/2024 1:59 PM. Learner: Patient Readiness: Eager Method: Explanation Response: Able to Teach Back Benefits and Barriers Of Exercise [id number], taught by Gosia Rivas R.NJacklyn at 04/20/2024 1:52 PM. Learner: Patient Readiness: Eager Method: Explanation Response: Able to Teach Back Interval Training [id number], taught by Skye Juarez at 03/23/2024 3:09 PM. Learner: Patient Readiness: Eager Method: Explanation, Handout, Class / Group Response: Able to Teach Back Stretches [id number], taught by Skye Juarez at 03/18/2024 3:09 PM. Learner: Patient Readiness: Eager Method: Explanation, Handout, Class / Group Response: Able to Teach Back Nutrition Assessment 02/20/2024 04/16/2024 05/14/2024 Nutrition Assessment ITP Inclusion: Nutrition Assessment Initial Reassessment Reassessment Height 162 cm Weight 64.1 kg BMI 24.42 Dietary Recommendations Low Salt;Low Fat/ Low Cholesterol Low Salt;Low Fat/ Low Cholesterol Low Salt;Low Fat/ Low Cholesterol Low Salt Amount 2000 mg 2000 mg 2000 mg Caffeine Intake (oz per week) 0 oz 0 oz Appetite Fair Good Good Comments Appetite fair to good - is down 10 lbs 02/20/2024 03/19/2024 04/16/2024 05/14/2024 Plan Goals Normalize appetite;Increase vegetable intake;Increase fruit intake;Maintain current weight Normalize appetite;Increase vegetable intake;Increase fruit intake;Maintain current weight Normalize appetite;Increase vegetable intake;Increase fruit intake;Maintain current weight Increase vegetable intake;Maintain current weight Nutrition Counseling Staff education only Staff education only Interventions Therapist discussion Therapist discussion Therapist discussion Therapist discussion;Discussion on current eating habits Progress Toward Goals Patient states that she has decreased her portion sizes since surgery. Will monitor and educate patient on following heart healthy dietary guidelines at upcoming sessions. Goalsremain ongoing. Patient continues to follow heart healthy dietary guidelines. Patient states she has increased her fruit and vegetable intake to 3-5 servings a day and decreased her Fatty foods. .Will continue to monitor and educate patient on following heart healthy dietary guidelines at upcoming sessions. Pt continues to follow a heart healthy diet. She avoids added salt in her meals and trys to avoid fatty foods. She consumes lots of fruits and vegetables. Pt's appetite is coming back. Patient continues to work towards her goals for nutrition. She admits that she has not been able to tolerate much foods, due to her illness, but has been trying to have a steady diet. She reports that she has been eating more tuna fish, bread, plain pasta, bananas, apple sauce and continues to drink Pedialyte to replenish her electrolytes. Patient continues to work towards increasing her vegetable intake. She states she continues to work towards monitoring her sodium intake and decreasing her fatty foods. Staff will continue to provide heart healthy nutrition education and support in upcoming sessions as appropriate. Nutrition Education Documentation Nutrition Guidelines for Cholesterol, Triglycerides and Sodium [id number], taught by Skye Juarez at 04/03/2024 3:01 PM. Learner: Patient Readiness: Eager Method: Explanation, Handout, Class / Group Response: Able to Teach Back How to Read a Food Label [id number], taught by Gosia Rivas R.N. at 03/30/2024 2:47 PM. Learner: Patient Readiness: Eager Method: Explanation Response: Able to Teach Back Mediterranean Diet Pyramid: Guidelines for Adults [id number], taught by Skye Juarez at 02/26/2024 3:06 PM. Learner: Patient Readiness: Eager Method: Explanation, Handout, Class / Group Response: Able to Teach Back Mediterranean Diet [id number], taught by Skye Juarez at 02/26/2024 3:06 PM. Learner: Patient Readiness: Eager Method: Explanation, Handout, Class / Group Response: Able to Teach Back Psychosocial Assessment 02/20/2024 03/19/2024 04/16/2024 05/14/2024 Psychosocial Assessment ITP Inclusion: Psychosocial Initial Reassessment Reassessment Reassessment Social Drivers of Health have been reviewed. For high-risk areas identified, a plan of treatment and follow-up information will be documented in appropriate areas within the ITP Yes Yes Yes Yes Current Medication Therapy Yes Yes Yes Yes Psychosocial Medications Zoloft Zoloft Zoloft Zoloft Current Issues None Stress Stress Stress Symptom Scale 1 3 Patient Stress Factors None identified None identified None identified None identified Family Stress Factors None identified None identified None identified None identified Needs Expressed Denies Denies Denies Denies Comments Spouse in November. She has family near by and very supportive for over the Holidays Pt states her mental health has been good. She has a strons support system in her family. She has 6 kids who take care of her and bring her food. 02/20/2024 03/19/2024 04/16/2024 05/14/2024 Plan Goals Continue to use effective stress management techniques;Identify a positive support system Continue to use effective stress management techniques;Identify a positive support system Continue to use effective stress management techniques;Identify a positive support system Verbalize appropriate coping skills;Identify a positive support system Interventions Therapist discussion Therapist discussion Therapist discussion;Discussed/reviewed current coping skills Therapist discussion;Discussed/reviewed current coping skills;Discussed/reviewed support system;Discussed/reviewed effective stress management/relaxation skills Progress Toward Goals Patient reports feeling good from a pyschosocial standpoint. He denies any signs or symptoms of anxiety, stress, or depression. PHQ9 to be assessed at initial exercise session. Patient reports having great support at home. Patient did not identify any stress management techniques. Will monitor and support patient from a pyschosocial standpoint at upcoming sessions. Goals remain ongoing. Patient continues to deal with some stress r/t spouse passing away. She rates her stress an 1/10 today. She denies signs or symptoms of anxiety and depression.She reports having good support at home from family. Will continue to monitor and support patient from a pyschosocial standpointat upcoming sessions. Pt feels her mental health is good. She has a strong support system cayden is taking good care of her. Will continue to monitor and support pt at upcoming sessions. Patient denies any current psychosocial concers and continues to work towards her psychosocial goals. When asked how she would rank her stress, she states it would be a 3/10. I know what I was like when I was highly stressed, and I can tell you, I have a lot less now. When asked about coping mechanisms, she stated I don't know, I work throught it I guess. Patient continues to work towards identifying a positive support system. Staff will continue to monitor patient for changes in psychosocial health and provide education and support as appropriate in upcoming sessions. Psychosocial Education Documentation Relaxation Techniques [id number], taught by Skye Juarez at 04/10/2024 3:02 PM. Learner: Patient Readiness: Eager Method: Explanation, Handout, Class / Group Response: Able to Teach Back Stress Reducers [id number], taught by Skye Juarez at 04/08/2024 3:04 PM. Learner: Patient Readiness: Eager Method: Explanation, Handout, Class / Group Response: Able to Teach Back Stress Management [id number], taught by Gosia Rivas R.N. at 04/08/2024 1:47 PM. Learner: Patient Readiness: Eager Method: Explanation Response: Able to Teach Back Knowing About Depression Finding Your Way [id number], taught by Skye Juarez at 04/06/2024 3:04 PM. Learner: Patient Readiness: Eager Method: Explanation, Handout, Class / Group Response: Able to Teach Back My Road to Better Health Sleep [id number], taught by Gosia Rivas R.N. at 03/04/2024 1:54 PM. Learner: Patient Readiness: Eager Method: Explanation Response: Able to Teach Back Other Core Components Hypertension Assessment 02/20/2024 03/18/2024 04/16/2024 05/14/2024 Hypertension ITP Inclusion: Hypertension Assessment Initial Reassessment Reassessment Reassessment History of Hypertension Yes Yes Yes Current Medication Therapy Yes Yes Yes Yes Hypertension Medications Metoprolol, Lasix Metoprolol, Lasix Metoprolol, lasix Metoprolol, lasix Blood Pressure 128/68 128/68 Resting BP (Telemetry) 128/68 02/20/2024 03/19/2024 04/16/2024 05/14/2024 Plan Goals Stable BP response;BP at physician prescribed goal;Medication compliance;Decrease sodium intake Stable BP response;BP at physician prescribed goal;Medication compliance;Decrease sodium intake Stable BP response;BP at physician prescribed goal;Medication compliance;Decrease sodium intake Stable BP response;BP at physician prescribed goal;Medication compliance;Decrease sodium intake Interventions Therapist discussion Therapist discussion Therapist discussion Therapist discussion Progress Toward Goals Will monitor and educate patient on blood pressure management at upcoming sessions Goals remain ongoing. Patient does not check BP at home Blood Pressure at goal in Cardiac Rehab. Will continue to monitor and educate patient on hypertension at upcoming sessions. Pt continues to maintain a heart healthy diet. She has been taking her BP medications as prescribed. BPs in CR have been at goal. Will continue to monitor and educate pt on hypertension at upcoming sessions. Patient continues to work towards her hypertension control goals. She reports that she does have a home monitor but admits she has not used it recently since attending cardiac rehab thrice weekly. Encouraged patient to check her BP at home at least once daily while she is out sick, to keep an eye on it and ensure she is not having too much or too little fluids. Staff will continue to provide education and support on hypertension control as appropriate. Hypertension Education Documentation High Blood Pressure Also Known as Hypertension [id number], taught by Gosia Rivas R.N. at 04/15/2024 2:02 PM. Learner: Patient Readiness: Eager Method: Explanation Response: Able to Teach Back Risk Factors For Heart Disease [id number], taught by Skye Juarez at 03/06/2024 2:47 PM. Learner: Patient Readiness: Acceptance Method: Explanation, Handout, Class / Group Response: Able to Teach Back Hyperlipidemia Assessment 02/21/2024 03/19/2024 04/16/2024 05/14/2024 Hyperlipidemia Assessment History of Hyperlipidemia Yes Yes Yes Yes Current Medication Therapy Yes Yes Yes Yes Hyperlipidemia Medications Atorvastatin 20 mg daily Atorvastatin 20 mg daily Atorvastatin Atorvastatin Lipids 2023 11:12 AM CHOL 184 TRIG 161 HDL 88 [id number] 2.09 02/21/2024 03/19/2024 04/16/2024 05/14/2024 Plan Goals Understand current lipid profile;Lipids in optimal range Understand current lipid profile;Lipids in optimal range Understand current lipid profile;Lipids in optimal range Understand current lipid profile;Lipids in optimal range Interventions Therapist discussion;Medication change Therapist discussion;Medication change Therapist discussion;Medication change Therapist discussion Progress Toward Goals Educated patient on ways to manage cholesterol including medication compliance, regular exercise, and following dietary guidelines. Will continue to monitor and educate patient on lipid management at upcoming sessions. Goals remain ongoing. Tolerating Statin well. Educated patient on lipid management including regular exercise, following dietary guidelines, and medication compliance. Will continue to monitor and educate patient on lipid management at upcoming sessions. Pt contiues to take cholesterol medication as prescribed, tolerating well. Pt continues to make heart healthy dietary choices. Will continue to monitor and educate pt on lipid management at upcoming sessi ons. Patient continues to work towards her cholesterol control goals. No other changes, due to limited ITP. Hyperlipidemia Education Documentation No documentation found. Education Comments No comments found. Diabetes Assessment 02/21/2024 03/19/2024 04/16/2024 05/14/2024 Diabetes History of Diabetes Diabetes Type II Diabetes Type II Diabetes Type II Diabetes Type II Current Medication Therapy Yes Yes Yes Yes Current Medication Therapy Jariance, Metformin, Glipizide Jariance, Metformain, Glipizide Jaridance, Metformin, Glipizide Jardiance, Metformin, Glipizide Do you monitor your blood glucose at home? No No No No Diabetic Labs No lab values to display. 02/21/2024 03/19/2024 04/16/2024 05/14/2024 Plan Goals Recognition of hypo/hyperglycemia symptoms;HbgA1c at goal Recognition of hypo/hyperglycemia symptoms;HbgA1c at goal Recognition of hypo/hyperglycemia symptoms;HbgA1c at goal Recognition of hypo/hyperglycemia symptoms;HbgA1c at goal Interventions Therapist discussion Therapist discussion Therapist discussion Progress Toward Goals Last HbgA1c- 6.5 Will monitor and educate patient on diabetes management at upcoming sessions. Patient has tolerated CArdiac Rehab with no DM Sx. Will monitor and educate patient on diabetes management at upcoming sessions. Pt's DM continues to be well controlled with medications. Will monitor and educate patine on diabetes management at upcoming sessions. Due to limited ITP, unable to assess Diabetes Education Documentation No documentation found. Tobacco Assessment 02/21/2024 03/19/2024 Tobacco Assessment Smoking Status Never - no goals/interventions indicated Never - no goals/interventions indicated Tobacco Use History[1] Tobacco Education Documentation No documentation found. Heart Failure Assessment 02/21/2024 03/19/2024 Heart Failure Assessment History of Heart Failure No, no goals / interventions indicated No, no goals / interventions indicated Heart Failure Education Documentation No documentation found. Medication Compliance Assessment 02/21/2024 03/19/2024 04/16/2024 05/14/2024 Medications Have you been compliant with all medications? Yes Yes Yes Yes 02/21/2024 03/19/2024 04/16/2024 05/14/2024 Plan Goals Medication compliance;Knowledge of medication Medication compliance;Knowledge of medication Medication compliance;Knowledge of medication Medication compliance;Knowledge of medication Interventions Therapist discussion Therapist discussion Therapist discussion Therapist discussion Progress Toward Goals Grand daughter currently setting up medications. Goal is to do it on her own soon Medication list reviewed and updated with patient. Patient reports taking all medications as prescribed. Will continue to monitor and educate patient on medication compliance at upcoming sessions. Pt continues to take medications as prescribed. Patient continues to report medication compliance and denies any recent changes or questions on medications. Staff will continue to monitor patient for medication compliance and changes in upcoming sessions. Medication Compliance Education Documentation Managing Your Medications [id number], taught by Skey Juarez at 04/17/2024 2:37 PM. Learner: Patient Readiness: Eager Method: Explanation, Handout, Class / Group Response: Able to Teach Back Medications were reviewed every visit. Patient expresses understanding and acceptance of instructions. Avi MabryPh.T. 0:00 AM SUPERINTENDENT STATIONS [1] Social History Tobacco Use Smoking Status Never Smokeless Tobacco Not on file RINTENDENT STATIONS documented in this encounter Plan of Treatment Upcoming Encounters Date Type Department Care Team (Late st Contact Info) Description 05/22/2024 2:00 PM SUPERINTENDENT STATIONS Appointment Department of Cardiac Rehabilitation in [place] [address] [place] [address] Keon Peace M.D. [address] [place] [address] 05/25/2024 2:00 PM SUPERINTENDENT STATIONS Appointment Department of Cardiac Rehabilitation in [place] [address] [place] [address] Keon Peace M.D. [address] [place] [address] 05/27/2024 2:00 PM SUPERINTENDENT STATIONS Appointment Department of Cardiac Rehabilitation in [place] [address] [place] [address] Keon Peace M.D. [address] [place] [address] 05/29/2024 2:00 PM SUPERINTENDENT STATIONS Appointment Department of Cardiac Rehabilitation in [place] [address] [place] [address] Keon Peace M.D. [address] [place] [address] 06/01/2024 2:00 PM SUPERINTENDENT STATIONS Appointment Department of Cardiac Rehabilitation in [place] [address] [place] [place] [address] Keon Peace M.D. [address] [facility] [address] 06/03/2024 2:00 PM SUPERINTENDENT STATIONS Appointment Department of Cardiac Rehabilitation in [place] [address] [facility] [place] [place] [address] Keon Paece M.D. [address] [facility] [address] 06/05/2024 2:00 PM SUPERINTENDENT STATIONS Appointment Department of Cardiac Rehabilitation in [place] [address] [facility] [place] [address] Keon Peace M.D. [address] [facility] [place] [address] 06/08/2024 2:00 PM CDT Appointment Department of Cardiac Rehabilitation in [place] [address] [facility] [place] [address] Keon Peace M.D. [address] [facility] [address] 06/10/2024 2:00 PM CDT Appointment Department of Cardiac Rehabilitation in [place] [address] [facility] [place] [address] Keon Peace M.D. [address] [facility] [address] 06/12/2024 2:00 PM CDT Appointment Department of Cardiac Rehabilitation in [place] [address] [facility] [place] [address] Keon Peace M.D. [address] [place] [address] documented as of this encounter Visit Diagnoses Not on filedocumented in this encounter Care Teams Commercial Sales Specialist Relationship Specialty Start Date End Date None Reported, Pcp PCP - General Family Medicine 02/28/24 documented as of this encounter
--- OUTSIDE RECORDS SUMMARY | 2024-05-21 12:17 | XMS_ITS | Encounter Summary ---
Author Organization [facility] Address [address] [place] [address] Care Team Providers Care Head Cd Reactor Operator Name Role Phone None Reported, Pcp Primary Care Provider Unavail able Encounter Details Date Type Department Care Team (Late st Contact Info) Description 05/14/2024 Documentation Department of Cardiac Rehabilitation in [address] [address] Jyoti King C.Ph.T. Social History Tobacco Use Types Packs/Day Years Used Date Smoking Tobacco: Never Dental Answer Date Recorded Dental: Regular Dentist Unknown 12/04/19 24 Comments Unknown Sex and Gender Information Value Date Recorded Sex Assigned at Not on file Legal Sex Female 4:49 PM CLINICAL RESEARCH MANAGEMENT ASSOCIATE Gender Identity Not on file Sexual Orientation Not on file documented as of this encounter Plan of Treatment Upcoming Encounters Date Type Department Care Team (Late st Contact Info) Description 05/22/2024 2:00 PM CLINICAL RESEARCH MANAGEMENT ASSOCIATE Appointment Department of Cardiac Rehabilitation in [place] [address] [place] [address] Keon Peace M.D. [address] [place] [address] 05/25/2024 2:00 PM CLINICAL RESEARCH MANAGEMENT ASSOCIATE Appointment Department of Cardiac Rehabilitation in [place] [address] [place] [address] Keon Peace M.D. [address] [place] [address] 05/27/2024 2:00 PM CLINICAL RESEARCH MANAGEMENT ASSOCIATE Appointment Department of Cardiac Rehabilitation in [place], [place] [address] [place] [address] Keon Peace M.D. [address] [place] [address] 05/29/2024 2:00 PM CLINICAL RESEARCH MANAGEMENT ASSOCIATE Appointment Department of Cardiac Rehabilitation in [place] [address] [place] [address] Keon Peace M.D. [address] [facility] [address] 06/01/2024 2:00 PM CLINICAL RESEARCH MANAGEMENT ASSOCIATE Appointment Department of Cardiac Rehabilitation in [place] [address] [place] [address] Keon Peace M.D. [address] [place] [address] 06/03/2024 2:00 PM CLINICAL RESEARCH MANAGEMENT ASSOCIATE Appointment Department of Cardiac Rehabilitation in [place] [address] [place] [address] Keon Peace M.D. [address] [place] [address] 06/05/2024 2:00 PM CLINICAL RESEARCH MANAGEMENT ASSOCIATE Appointment Department of Cardiac Rehabilitation in [place] [address] [place] [address] Keon Peace M.D. [address] [place] [address], [place] [address] 06/08/2024 2:00 PM CDT Appointment Department of Cardiac Rehabilitation in [place] [address] [facility] [address] Keon Peace M.D. [address] [facility] [place] [address] 06/10/2024 2:00 PM CDT Appointment Department of Cardiac Rehabilitation in [place], [place] [address] [place] [place] [address] Keon Peace M.D. [address] [place] [address] 06/12/2024 2:00 PM CDT Appointment Department of Cardiac Rehabilitation in [place], [place] [address] [place] [address] Keon Peace M.D. [address] [place] [address] documented as of this encounter Visit Diagnoses Not on filedocumented in this encounter Care Teams Head Cd Reactor Operator Relationship Specialty Start Date End Date None Reported, Pcp PCP - General Family Medicine 02/28/24 documented as of this encounter
--- OUTSIDE RECORDS SUMMARY | 2024-05-21 12:17 | XMS_ITS | Encounter Summary ---
Author Organization [facility] Address [address] [place] [address] Care Team Providers Care Fairground Operator Name Role Phone None Reported, Pcp Primary Care Provider Unavail able Encounter Details Date Type Department Care Team (Latest Contact Info) Description 05/14/2024 Clinical Communication Department of Cardiac Rehabilitation in [place], [place] [address] [place] [address] Jyoti King C.Ph.T. Social History Tobacco Use Types Packs/Day Years Used Date Smoking Tobacco: Never Dental Answer Date Recorded Dental: Regular Dentist Unknown 12/04/19 24 Comments Unknown Sex and Gender Information Value Date Recorded Sex Assigned at Not on file Legal Sex Female 4:49 PM TRIMMER TAILER Gender Identity Not on file Sexual Orientation Not on file documented as of this encounter Plan of Treatment Upcoming Encounters Date Type Department Care Team (Late st Contact Info) Description 05/22/2024 2:00 PM TRIMMER TAILER Appointment Department of Cardiac Rehabilitation in [place] [address] [place] [address] Keon Peace M.D. [address] [place] [address] 05/25/2024 2:00 PM TRIMMER TAILER Appointment Department of Cardiac Rehabilitation in [place], [place] [address] [place] [address] Keon Peace M.D. [address] [place] [address] 05/27/2024 2:00 PM TRIMMER TAILER Appointment Department of Cardiac Rehabilitation in [place], [place] [address] [place] [address] Keon Peace M.D. [address] [place] [address] 05/29/2024 2:00 PM TRIMMER TAILER Appointment Department of Cardiac Rehabilitation in [place] [address] [place] [address] Keon Peace M.D. [address] [place] [address] 06/01/2024 2:00 PM TRIMMER TAILER Appointment Department of Cardiac Rehabilitation in [place] [address] [place] [address] Keon Peace M.D. [address] [place] [address] 06/03/2024 2:00 PM TRIMMER TAILER Appointment Department of Cardiac Rehabilitation in [place] [address] [place] [address] Keon Peace M.D. [address] [place] [address] 06/05/2024 2:00 PM TRIMMER TAILER Appointment Department of Cardiac Rehabilitation in [place] [address] [place] [address] Keon Peace M.D. [address] [place] [address], [place] [address] 06/08/2024 2:00 PM CDT Appointment Department of Cardiac Rehabilitation in [place] [address] [place] [address] Keon Peace M.D. [address] [facility] [place] [address] 06/10/2024 2:00 PM CDT Appointment Department of Cardiac Rehabilitation in [place], [place] [address] [place] [address] Keon Peace M.D. [address] [place] [address] 06/12/2024 2:00 PM CDT Appointment Department of Cardiac Rehabilitation in [place], [place] [address] [place] [address] Keon Peace M.D. [address] [place] [address] documented as of this encounter Visit Diagnoses Not on filedocumented in this encounter Care Teams Fairground Operator Relationship Specialty Start Date End Date None Reported, Pcp PCP - General Family Medicine 02/28/24 documented as of this encounter
--- OUTSIDE RECORDS SUMMARY | 2024-05-21 12:17 | XMS_ITS | Encounter Summary ---
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 [address] Phone: tel: fax: 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 [address] Phone: tel: fax: [facility] Region Referral ID Status Reason Start Date Expiration Date V isits Requested Visits Authorized [id number] Authorized 02/20/2024 02/19/2025 45 45 Encounter Details Date Type Department Care Team (Latest Contact Info) Description 04/10/2024 1:44 PM DINING ROOM HOST - 04/10/2024 11:59 PM DINING ROOM HOST Hospital Encounter Department of Cardiac Rehabilitation in [place], [place] [address] [place] [address] Keon Peace M.D. [address] [place] [address] Replacement Aortic Valve Tissue; Coronary Arterial Bypass Graft Status Post Personal History Discharge Disposition: Home or Self Care Social History Tobacco Use Types Packs/Day Years Used Date Smoking Tobacco: Never Dental Answer Date Recorded Dental: Regular Dentist Unknown 12/04/19 24 Comments Unknown Sex and Gender Information Value Date Recorded Sex Assigned at Not on file Legal Sex Female 4:49 PM DINING ROOM HOST Gender Identity Not on file Sexual Orientation Not on file documented as of this encounter Plan of Treatment Upcoming Encounters Date Type Department Care Team (Late st Contact Info) Description 05/22/2024 2:00 PM DINING ROOM HOST Appointment Department of Cardiac Rehabilitation in [place] [address] [place] [address] Keon Peace M.D. [address] [place] [address] 05/25/2024 2:00 PM DINING ROOM HOST Appointment Department of Cardiac Rehabilitation in [place] [address] [place] [address] Keon Peace M.D. [address] [place] [address] 05/27/2024 2:00 PM DINING ROOM HOST Appointment Department of Cardiac Rehabilitation in [place] [address] [place] [address] Keon Peace M.D. [address] [place] [address] 05/29/2024 2:00 PM DINING ROOM HOST Appointment Department of Cardiac Rehabilitation in [place] [address] [place] [address] Keno Peace M.D. [address] [place], [place] [address], [place] [address] 06/01/2024 2:00 PM DINING ROOM HOST Appointment Department of Cardiac Rehabilitation in [place], [place] [address] [place] [address] Keon Peace M.D. [address] [facility] [place] [address] 06/03/2024 2:00 PM DINING ROOM HOST Appointment Department of Cardiac Rehabilitation in [place] [address] [place] [address] Keon Peace M.D. [address] [place] [address], [place] [address] 06/05/2024 2:00 PM DINING ROOM HOST Appointment Department of Cardiac Rehabilitation in [place] [address] [place] [address] Keon Peace M.D. [address] [place] [address], [place] [address] 06/08/2024 2:00 PM CDT Appointment Department of Cardiac Rehabilitation in [place] [address] [place] [address] Keon Peace M.D. [address] [place] [address], [place] [address] 06/10/2024 2:00 PM CDT Appointment Department of Cardiac Rehabilitation in [place] [address] [place] [address] Keon Peace M.D. [address] [facility] [place] [address] 06/12/2024 2:00 PM CDT Appointment Department of Cardiac Rehabilitation in [place], [place] [address] [place] [address] Keon Peace M.D. 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
--- OUTSIDE RECORDS SUMMARY | 2024-05-21 12:17 | XMS_ITS | Encounter Summary ---
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 [address] Phone: tel: fax: 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 [address] Phone: tel: fax: [facility] Region Referral ID Status Reason Start Date Expiration Date V isits Requested Visits Authorized [id number] Authorized 02/20/2024 02/19/2025 45 45 Encounter Details Date Type Department Care Team (Latest Contact Info) Description 04/13/2024 1:41 PM LABORATORY ENGINEER - 04/13/2024 11:59 PM LABORATORY ENGINEER Hospital Encounter Department of Cardiac Rehabilitation in [place], [place] [address] [place] [address] Keon Peace M.D. [address] [place] [address] Replacement Aortic Valve Tissue; Coronary Arterial Bypass Graft Status Post Personal History Discharge Disposition: Home or Self Care Social History Tobacco Use Types Packs/Day Years Used Date Smoking Tobacco: Never Dental Answer Date Recorded Dental: Regular Dentist Unknown 12/04/19 24 Comments Unknown Sex and Gender Information Value Date Recorded Sex Assigned at Not on file Legal Sex Female 4:49 PM LABORATORY ENGINEER Gender Identity Not on file Sexual Orientation Not on file documented as of this encounter Plan of Treatment Upcoming Encounters Date Type Department Care Team (Late st Contact Info) Description 05/22/2024 2:00 PM LABORATORY ENGINEER Appointment Department of Cardiac Rehabilitation in [place] [address] [place] [address] Keon Peace M.D. [address] [place] [address] 05/25/2024 2:00 PM LABORATORY ENGINEER Appointment Department of Cardiac Rehabilitation in [place] [address] [place] [address] Keon Peace M.D. [address] [place] [address] 05/27/2024 2:00 PM LABORATORY ENGINEER Appointment Department of Cardiac Rehabilitation in [place] [address] [place] [address] Keon Peace M.D. [address] [place] [address] 05/29/2024 2:00 PM LABORATORY ENGINEER Appointment Department of Cardiac Rehabilitation in [place] [address] [place] [address] Keon Peace M.D. [address] [place], [place] [address], [place] [address] 06/01/2024 2:00 PM LABORATORY ENGINEER Appointment Department of Cardiac Rehabilitation in [place], [place] [address] [place] [address] Keon Peace M.D. [address] [place] [address] 06/03/2024 2:00 PM LABORATORY ENGINEER Appointment Department of Cardiac Rehabilitation in [place] [address] [place] [address] Keon Peace M.D. [address] [place] [address], [place] [address] 06/05/2024 2:00 PM LABORATORY ENGINEER Appointment Department of Cardiac Rehabilitation in [place] [address] [place] [address] Keon Peace M.D. [address] [place] [address], [place] [address] 06/08/2024 2:00 PM CDT Appointment Department of Cardiac Rehabilitation in [place] [address] [place] [address] Keon Peace M.D. [address] [place] [address], [place] [address] 06/10/2024 2:00 PM CDT Appointment Department of Cardiac Rehabilitation in [place] [address] [place] [address] Keon Peace M.D. [address] [place] [address] 06/12/2024 2:00 PM CDT Appointment Department of Cardiac Rehabilitation in [place], [place] [address] [place] [address] Keon Peace M.D. 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
--- OUTSIDE RECORDS SUMMARY | 2024-05-21 12:17 | XMS_ITS | Encounter Summary ---
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 [address] Phone: tel: fax: [facility] Region Referral ID Status Reason Start Date Expiration Date V isits Requested Visits Authorized [id number] Authorized 02/20/2024 02/19/2025 45 45 Encounter Details Date Type Department Care Team (Latest Contact Info) Description 04/15/2024 1:53 PM WOOL HAT HYDRAULICKER - 04/15/2024 11:59 PM WOOL HAT HYDRAULICKER Hospital Encounter Department of Cardiac Rehabilitation in [place], [place] [address] [place] [phone] Keon Peace M.D. [address] [place] [phone] Replacement Aortic Valve Tissue; Coronary Arterial Bypass Graft Status Post Personal History Discharge Disposition: Home or Self Care Social History Tobacco Use Types Packs/Day Years Used Date Smoking Tobacco: Never Dental Answer Date Recorded Dental: Regular Dentist Unknown 12/04/19 24 Comments Unknown Sex and Gender Information Value Date Recorded Sex Assigned at Not on file Legal Sex Female 4:49 PM WOOL HAT HYDRAULICKER Gender Identity Not on file Sexual Orientation Not on file documented as of this encounter Plan of Treatment Upcoming Encounters Date Type Department Care Team (Late st Contact Info) Description 05/22/2024 2:00 PM WOOL HAT HYDRAULICKER Appointment Department of Cardiac Rehabilitation in [place] [address] [place] [address] Keon Peace M.D. [address] [place] [phone] 05/25/2024 2:00 PM WOOL HAT HYDRAULICKER Appointment Department of Cardiac Rehabilitation in [place] [address] [place] [address] Keon Peace M.D. [address] [place] [phone] 05/27/2024 2:00 PM WOOL HAT HYDRAULICKER Appointment Department of Cardiac Rehabilitation in [place] [address] [place] [address] Keon Peace M.D. [address] [place] [address] 05/29/2024 2:00 PM WOOL HAT HYDRAULICKER Appointment Department of Cardiac Rehabilitation in [place] [address] [place] [address] Keon Peace M.D. [address] [place], [place] [address], [place] [address] 06/01/2024 2:00 PM WOOL HAT HYDRAULICKER Appointment Department of Cardiac Rehabilitation in [place], [place] [address] [place] [address] Keon Peace M.D. [address] [facility] [place] [address] 06/03/2024 2:00 PM WOOL HAT HYDRAULICKER Appointment Department of Cardiac Rehabilitation in [place] [address] [place] [address] Keon Peace M.D. [address] [place] [address], [place] [address] 06/05/2024 2:00 PM WOOL HAT HYDRAULICKER Appointment Department of Cardiac Rehabilitation in [place] [address] [place] [address] Keon Peace M.D. [address] [place] [address], [place] [address] 06/08/2024 2:00 PM CDT Appointment Department of Cardiac Rehabilitation in [place] [address] [place] [address] Keon Peace M.D. [address] [place] [address], [place] [address] 06/10/2024 2:00 PM CDT Appointment Department of Cardiac Rehabilitation in [place] [address] [place] [address] Keon Peace M.D. [address] [facility] [place] [address] 06/12/2024 2:00 PM CDT Appointment Department of Cardiac Rehabilitation in [place], [place] [address] [place] [phone] Keon Peace M.D. 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
--- OUTSIDE RECORDS SUMMARY | 2024-05-21 12:17 | XMS_ITS | Encounter Summary ---
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 [address] Phone: tel: fax: [facility] Region Referral ID Status Reason Start Date Expiration Date V isits Requested Visits Authorized [id number] Authorized 02/20/2024 02/19/2025 45 45 Encounter Details Date Type Department Care Team (Latest Contact Info) Description 04/06/2024 1:46 PM GLASS SCIENCE ENGINEER - 04/06/2024 11:59 PM GLASS SCIENCE ENGINEER Hospital Encounter Department of Cardiac Rehabilitation in [place], [place] [address] [place] [phone] Keon Peace M.D. [address] [place] [phone] Replacement Aortic Valve Tissue; Coronary Arterial Bypass Graft Status Post Personal History Discharge Disposition: Home or Self Care Social History Tobacco Use Types Packs/Day Years Used Date Smoking Tobacco: Never Dental Answer Date Recorded Dental: Regular Dentist Unknown 12/04/19 24 Comments Unknown Sex and Gender Information Value Date Recorded Sex Assigned at Not on file Legal Sex Female 4:49 PM GLASS SCIENCE ENGINEER Gender Identity Not on file Sexual Orientation Not on file documented as of this encounter Plan of Treatment Upcoming Encounters Date Type Department Care Team (Late st Contact Info) Description 05/22/2024 2:00 PM GLASS SCIENCE ENGINEER Appointment Department of Cardiac Rehabilitation in [place] [address] [place] [address] Keon Peace M.D. [address] [place] [phone] 05/25/2024 2:00 PM GLASS SCIENCE ENGINEER Appointment Department of Cardiac Rehabilitation in [place] [address] [place] [address] Keon Peace M.D. [address] [place] [phone] 05/27/2024 2:00 PM GLASS SCIENCE ENGINEER Appointment Department of Cardiac Rehabilitation in [place] [address] [place] [address] Keon Peace M.D. [address] [place] [address] 05/29/2024 2:00 PM GLASS SCIENCE ENGINEER Appointment Department of Cardiac Rehabilitation in [place] [address] [place] [address] Keon Peace M.D. [address] [place], [place] [address], [place] [address] 06/01/2024 2:00 PM GLASS SCIENCE ENGINEER Appointment Department of Cardiac Rehabilitation in [place], [place] [address] [place] [address] Keon Peace M.D. [address] [place] [address] 06/03/2024 2:00 PM GLASS SCIENCE ENGINEER Appointment Department of Cardiac Rehabilitation in [place] [address] [place] [address] Keon Peace M.D. [address] [place] [address], [place] [address] 06/05/2024 2:00 PM GLASS SCIENCE ENGINEER Appointment Department of Cardiac Rehabilitation in [place] [address] [place] [address] Keon Peace M.D. [address] [place] [address], [place] [address] 06/08/2024 2:00 PM CDT Appointment Department of Cardiac Rehabilitation in [place] [address] [place] [address] Keon Peace M.D. [address] [place] [address], [place] [address] 06/10/2024 2:00 PM CDT Appointment Department of Cardiac Rehabilitation in [place] [address] [place] [address] Keon Peace M.D. [address] [place] [address] 06/12/2024 2:00 PM CDT Appointment Department of Cardiac Rehabilitation in [place], [place] [address] [place] [phone] Keon Peace M.D. 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
[2024-05-21 12:18] VITALS: BP 166/80; PULSE 74; RESP 16; TEMP 36.4; O2SAT 95
--- OUTSIDE RECORDS SUMMARY | 2024-05-21 12:18 | XMS_ITS | Encounter Summary ---
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 [address] Phone: tel: fax: [facility] Region Referral ID Status Reason Start Date Expiration Date V isits Requested Visits Authorized [id number] Authorized 02/20/2024 02/19/2025 45 45 Encounter Details Date Type Department Care Team (Latest Contact Info) Description 04/29/2024 1:45 PM SURGICAL ASSISTANT CERTIFIED - 04/29/2024 11:59 PM SURGICAL ASSISTANT CERTIFIED Hospital Encounter Department of Cardiac Rehabilitation in [place], [place] [address] [place] [phone] Keon Peace M.D. [address] [place] [phone] Replacement Aortic Valve Tissue; Coronary Arterial Bypass Graft Status Post Personal History Discharge Disposition: Home or Self Care Social History Tobacco Use Types Packs/Day Years Used Date Smoking Tobacco: Never Dental Answer Date Recorded Dental: Regular Dentist Unknown 12/04/19 24 Comments Unknown Sex and Gender Information Value Date Recorded Sex Assigned at Not on file Legal Sex Female 4:49 PM SURGICAL ASSISTANT CERTIFIED Gender Identity Not on file Sexual Orientation Not on file documented as of this encounter Plan of Treatment Upcoming Encounters Date Type Department Care Team (Late st Contact Info) Description 05/22/2024 2:00 PM SURGICAL ASSISTANT CERTIFIED Appointment Department of Cardiac Rehabilitation in [place] [address] [place] [address] Keon Peace M.D. [address] [place] [phone] 05/25/2024 2:00 PM SURGICAL ASSISTANT CERTIFIED Appointment Department of Cardiac Rehabilitation in [place] [address] [place] [address] Keon Peace M.D. [address] [place] [phone] 05/27/2024 2:00 PM SURGICAL ASSISTANT CERTIFIED Appointment Department of Cardiac Rehabilitation in [place] [address] [place] [address] Keon Peace M.D. [address] [place] [address] 05/29/2024 2:00 PM SURGICAL ASSISTANT CERTIFIED Appointment Department of Cardiac Rehabilitation in [place] [address] [place] [address] Keon Peace M.D. [address] [place], [place] [address], [place] [address] 06/01/2024 2:00 PM SURGICAL ASSISTANT CERTIFIED Appointment Department of Cardiac Rehabilitation in [place], [place] [address] [place] [address] Keon Peace M.D. [address] [place] [address] 06/03/2024 2:00 PM SURGICAL ASSISTANT CERTIFIED Appointment Department of Cardiac Rehabilitation in [place] [address] [place] [address] Keon Peace M.D. [address] [place] [address], [place] [address] 06/05/2024 2:00 PM SURGICAL ASSISTANT CERTIFIED Appointment Department of Cardiac Rehabilitation in [place] [address] [place] [address] Keon Peace M.D. [address] [place] [address], [place] [address] 06/08/2024 2:00 PM CDT Appointment Department of Cardiac Rehabilitation in [place] [address] [place] [address] Keon Peace M.D. [address] [place] [address], [place] [address] 06/10/2024 2:00 PM CDT Appointment Department of Cardiac Rehabilitation in [place] [address] [place] [address] Keon Peace M.D. [address] [place] [address] 06/12/2024 2:00 PM CDT Appointment Department of Cardiac Rehabilitation in [place], [place] [address] [place] [phone] Keon Peace M.D. 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
--- OUTSIDE RECORDS SUMMARY | 2024-05-21 12:18 | XMS_ITS | Clinical Summary ---
Author Organization [employer] [facility] Address [address] [place] [id number] Care Team Providers Care Charger Tester Name Role Phone Brian Garay MD Primary Care Provider [phone] [facility] Unavailable [phone] Allergies Active Allergy Reactions Criticality Noted Date Comments Penicillins Itching 06/12/2005 Medications levothyroxine (SYNTHROID) 75 mcg tablet Take 75 mcg by mouth once daily. Best if taken on empty stomach. Active multivitamin (MVI) tablet Take 1 tablet by mouth once daily. 0 06/08/19 11 Active cholecalciferol (VITAMIN D) 1,000 unit tablet Take 1 tablet by mouth once daily. 0 06/08/19 11 Active alendronate (FOSAMAX) 70 mg tablet Take 70 mg by mouth once a week in the morning. 02/15/20 23 Active sertraline (ZOLOFT) 100 mg tablet Take 100 mg by mouth once daily. 12/05/19 23 Active empagliflozin (Jardiance) 10 mg tabletIndications:O ther heart failure (HC),Aortic valve stenosis, etiology of cardiac valve disease unspecified,Atheros clerosis of coronary artery, unspecified vessel or lesion type, unspecified whether angina present, unspecified whether osage or transplanted heart Take 1 Tablet (10 mg) by mouth once daily. Resume Wednesday 11/15 as prescribed 11/15/19 24 Active glipiZIDE (GLUCOTROL) 10 mg tabletIndications:D iabetes mellitus without complication (HC) Take 1 Tablet (10 mg) by mouth two times daily before meals. Resume Wednesday 11/15 as prescribed 11/15/19 24 Active pioglitazone (ACTOS) 15 mg tabletIndications:D iabetes mellitus without complication (HC) Take 1 Tablet (15 mg) by mouth once daily. Resume Wednesday 11/15 as prescribed 11/15/19 24 Active metFORMIN (GLUCOPHAGE) 1,000 mg tabletIndications:D iabetes mellitus without complication (HC) Take 1 Tablet (1,000 mg) by mouth two times daily with meals. Resume Friday 11/17 as prescribed 11/15/19 24 Active acetaminophen (TYLENOL) 325 mg tabletIndications:S /P AVR,S/P CABG x 3 Take 1-2 Tablets (325-650 mg) by mouth every 6 hours if needed for Headache or Pain. Max acetaminophen dose: 4000mg in 24 hrs. 01/10/20 24 Active amiodarone (CORDARONE) 200 mg tabletIndications:P aroxysmal A-fib (HC) Take 2 Tablets (400 mg) by mouth two times daily for 7 days, THEN 1 Tablet (200 mg) two times daily for 7 days, THEN 1 Tablet (200 mg) once daily. 84 Tablet 4 1:53 PM CDT 01/05/20 24 Active furosemide (LASIX) 20 mg tabletIndications:S /P AVR,S/P CABG x 3 Take 1 Tablet (20 mg) by mouth once daily in the morning. 30 Tablet 4 11:01 AM CDT 01/12/20 24 Active potassium chloride (K-TAB) 10 mEq extended-release tabletIndications:S /P AVR,S/P CABG x 3 Take 1 Tablet (10 mEq) by mouth once daily with a meal. 30 Tablet 4 11:01 AM CDT 01/12/20 24 Active metoprolol succinate (TOPROL XL) 25 mg Sustained-Release tabletIndications:P aroxysmal A-fib (HC) Take one-half tablet (12.5 mg) by mouth once daily. 90 Tablet 4 11:01 AM CDT 01/11/20 24 Active irbesartan (AVAPRO) 150 mg tablet Take 150 mg by mouth once daily. Active rivaroxaban (Xarelto) 20 mg tabletIndications:p revention of thromboembolism in paroxysmal atrial fib Take 1 Tablet (20 mg) by mouth once daily with evening meal. 90 Tablet 2 02/13/20 24 Active atorvastatin (LIPITOR) 20 mg tabletIndications:A therosclerosis of coronary artery, unspecified vessel or lesion type, unspecified whether angina present, unspecified whether osage or transplanted heart,S/P CABG x 3 Take 1 Tablet (20 mg) by mouth once daily. 90 Tablet 2 02/13/20 24 Active Active Problems Problem Noted Date Diagnosed Date S/P AVR 01/02/2024 Overview (01/02/2024): 01/01/2024 s/p Aortic valve replacement with [id number] mm tissue valve S/P CABG x 3 01/02/2024 Overview (01/02/2024): 01/01/2024 s/p Coronary artery bypass grafting x3 (LUGO -> LAD, SVG -> PDA, SVG - > OM1) Shock circulatory 01/02/2024 Severe aortic stenosis 2023 COLLAZO (dyspnea on exertion) 2023 Moderate mitral regurgitation 2023 Coronary atherosclerosis of unspecified type of vessel, osage or graft 06/15/2005 Overview (06/15/2005): s/p NRAESH LAD, s/p NARESH prox and mid RCA, s/p PTCA ostial PDA 06/14/05 Type II or unspecified type diabetes mellitus without mention of complication, not stated as uncontrolled 06/15/2005 Unspecified essential hypertension 06/15/2005 Other and unspecified hyperlipidemia 06/15/2005 Overview (06/15/2005): 06/12/05 Chol 193, TG 175, HDL 61, LDL 97 Homocysteine 8.1 06/14/05 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 HYPOTHYROIDISM , on supplement 06/15/2005 Unspecified asthma(493.90) 06/15/2005 Immunizations Name Administration Dates Next Due INFLUENZA, IIV3 PF (AGE >= 6 MO) 12/07/2009 Influenza A (H1N1), Inactivated 02/25/2009 Influenza Virus, Unspecified 01/02/2011,12/23/19 09 Influenza, High-dose Inactivated 019,01/17/2018,01/10/2017,2015,12/27/2014 Influenza, High-dose Quadriv alent Inactivated 02/08/2022,12/22/2019 Influenza, IIV3 (Age >=3 years) 12/22/19 14,12/25/2012,01/21/2012,2007,01/03/2007,01/30/2006 Influenza, IIV4 02/25/2009 Influenza, Inactivated AIIV4 (Age 65+ Years) Preserv Free 02/16/2021 Pneumococcal Poly,23-Valent (Pneumovax) 08/04/2007 Pneumococcal conj 13-Valent (Prevnar 13) 11/16/2014 Td (Age >=7 Years) 11/08/1982 Td, Preservative Free (age > = 7 Years) 07/19/2006 Tdap 02/20/2022,08/28/2011 Zoster (Shingrix-RZV, recombinant) 12/15/2018, Social History Tobacco Use Types Packs/Day Years Used Date Smoking Tobacco: Never Smokeless Tobacco: Never Tobacco Cessation:Counseling Given: Not Answered Alcohol Use Standard Drinks/Week Comments No 0 (1 standard drink = 0.6 oz pur e alcohol) Social Connections Answer Date Recorded Do you often feel lonely or isolated from those around you? 0 01/02/2024 Financial Resource Strain Answer Date R ecorded Difficulty of Paying Living Expenses 3 01/03/2024 Difficulty of Paying Living Expenses Not on file 01/03/2024 Food Insecurity Answer Date Recorded Do you worry your food will run out before you are able to buy more? 1 01/02/2024 Transportation Needs Answer Date Record ed Does lack of transportation keep you from medica l appointments? 1 01/02/2024 Does lack of transportation keep you from work, meetings or getting things that you need? 1 01/02/2024 Housing Stability Answer Date Recorded What is your housing situation today? 1 01/02/2024 Interpersonal Safety Answer Date Record ed Are you being hit, kicked, p ushed or yelled at (see row info)? No 01/02/2024 Interpersonal Safety Abuse 12 - 18 Not on file 01/02/2024 Interpersonal Safety Ambulatory Vulnerability No t on file 01/02/2024 Utilities Answer Date Recorded Do you have trouble paying f or utilities (for example, heat, electricity, water, phone)? 1 01/02/2024 Comments No Sex and Gender Information Value Date Recorded Sex Assigned at Not on file Legal Sex Female 6:12 AM CLINICAL TRANSFORMATION SPECIALIST Gender Identity Not on file Sexual Orientation Not on file Obstetrics History Last Filed Vital Signs Vital Sign Reading Time Taken Comments Blood Pressure 170/71 02/12/2024 2:13 PM CLINICAL TRANSFORMATION SPECIALIST Pulse 80 02/12/2024 2:13 PM CLINICAL TRANSFORMATION SPECIALIST Temperature 36.1 C (97 F) 02/10/2024 8:19 AM CLINICAL TRANSFORMATION SPECIALIST Respiratory Rate 16 02/10/2024 8:19 AM CLINICAL TRANSFORMATION SPECIALIST Oxygen Saturation 97% 02/12/2024 2:13 PM CLINICAL TRANSFORMATION SPECIALIST Inhaled Oxygen Concentration - - Weight 64.4 kg (142 lb) 02/12/2024 2:13 PM CLINICAL TRANSFORMATION SPECIALIST Height 162.6 cm (5' 4) 02/12/2024 2:13 PM CLINICAL TRANSFORMATION SPECIALIST Body Mass Index 24.37 02/12/2024 2:13 PM CLINICAL TRANSFORMATION SPECIALIST Plan of Treatment Health Maintenance Due Date Last Done Comments Depression screening for age 12+ 1949 DEXA/DXA scan for age 65+ 2002 Medicare Wellness for age 65+ 2002 RSV vaccine for adults or (1 - 1-dose 75+ series) 2012 COVID-19 vaccine series ( season) 2023 06/18/2020 Influenza for age 65+ 12/01/2023 02/08/2022 , 02/16/2021, 12/22/2019, Additional history exists BMI (ht and wt on same day) for age 18+ 02/11/2025 02/12/2024 Tetanus booster 02/21/2032 02/20/2022, 07/31, 07/19/2006, Additional history exists Pneumococcal series for age 50+ Completed 5, 08/04/2007 Zoster (shingles) series for age 50+ Completed 12/15/2018, 10/14/2018 Tdap Completed 02/20/2022, 08/28/2011 Medical Devices Implanted Type Area Employment Case Manager Device Identifier Shelf Expiration Date Model / Serial / Lot Valve Aortic 19mm Inspirus Resilia Tissue - [id number] Implanted:Qty: 1 on 01/01/2024 by Dahiana Ventura MD at [facility] N/A: Aortic Valve [employer] Bianca [id number] 11/12/2026 [id number] / [id number] / Description:No rinse per man ufacturer's instructions. Insurance MEDICARE PART A HB ONLY [employer] CHOICE PPO MR HUMANA PPS Advance Directives * Full Code (Latest Code Status on File) Date Activated Date Inactivated Comments 01/01/2024 6:21 AM 01/11/2024 3:59 PM Question Answer Comments Code Status Discussion: Unable to Assess Preferences, Provider to review later * Full Code Date Activated Date Inactivated Comments 2023 11:05 AM 2023 8:40 PM Question Answer Comments Code Status Discussion: Reviewed Preferences * Full Code Date Activated Date Inactivated Comments 06/14/2005 11:46 AM 06/15/2005 4:14 PM * Full Code Date Activated Date Inactivated Comments 06/14/2005 9:05 AM 06/14/2005 11:46 AM Care Teams Charger Tester Relationship Specialty Start Date End Date Brian Garay MD PCP - General 08/19/[address] [place] [address] 01/11/24
--- OUTSIDE RECORDS SUMMARY | 2024-05-21 12:18 | XMS_ITS | Encounter Summary ---
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 [address] Phone: tel: fax: [facility] Region Referral ID Status Reason Start Date Expiration Date V isits Requested Visits Authorized [id number] Authorized 02/20/2024 02/19/2025 45 45 Encounter Details Date Type Department Care Team (Latest Contact Info) Description 04/27/2024 1:56 PM SPOOL WINDER - 04/27/2024 11:59 PM SPOOL WINDER Hospital Encounter Department of Cardiac Rehabilitation in [place], [place] [address] [place] [phone] Keon Peace M.D. [address] [place] [phone] Replacement Aortic Valve Tissue; Coronary Arterial Bypass Graft Status Post Personal History Discharge Disposition: Home or Self Care Social History Tobacco Use Types Packs/Day Years Used Date Smoking Tobacco: Never Dental Answer Date Recorded Dental: Regular Dentist Unknown 12/04/19 24 Comments Unknown Sex and Gender Information Value Date Recorded Sex Assigned at Not on file Legal Sex Female 4:49 PM SPOOL WINDER Gender Identity Not on file Sexual Orientation Not on file documented as of this encounter Plan of Treatment Upcoming Encounters Date Type Department Care Team (Late st Contact Info) Description 05/22/2024 2:00 PM SPOOL WINDER Appointment Department of Cardiac Rehabilitation in [place] [address] [place] [address] Keon Peace M.D. [address] [place] [phone] 05/25/2024 2:00 PM SPOOL WINDER Appointment Department of Cardiac Rehabilitation in [place] [address] [place] [address] Keon Peace M.D. [address] [place] [phone] 05/27/2024 2:00 PM SPOOL WINDER Appointment Department of Cardiac Rehabilitation in [place] [address] [place] [address] Keon Peace M.D. [address] [place] [address] 05/29/2024 2:00 PM SPOOL WINDER Appointment Department of Cardiac Rehabilitation in [place] [address] [place] [address] Keon Peace M.D. [address] [place], [place] [address], [place] [address] 06/01/2024 2:00 PM SPOOL WINDER Appointment Department of Cardiac Rehabilitation in [place], [place] [address] [place] [address] Keon Peace M.D. [address] [facility] [place] [address] 06/03/2024 2:00 PM SPOOL WINDER Appointment Department of Cardiac Rehabilitation in [place] [address] [place] [address] Keon Peace M.D. [address] [place] [address], [place] [address] 06/05/2024 2:00 PM SPOOL WINDER Appointment Department of Cardiac Rehabilitation in [place] [address] [place] [address] Keon Peace M.D. [address] [place] [address], [place] [address] 06/08/2024 2:00 PM CDT Appointment Department of Cardiac Rehabilitation in [place] [address] [place] [address] Keon Peace M.D. [address] [place] [address], [place] [address] 06/10/2024 2:00 PM CDT Appointment Department of Cardiac Rehabilitation in [place] [address] [place] [address] Keon Peace M.D. [address] [facility] [place] [address] 06/12/2024 2:00 PM CDT Appointment Department of Cardiac Rehabilitation in [place], [place] [address] [place] [phone] Keon Peace M.D. [address] [place] [phone] Scheduled Orders Name Type Priority Associated Diagnoses Orde r Schedule Cardiac Rehab Program Card Rehab Routine Replacement Aortic Valve Tissue Coronary Arterial Bypass Graft Status Post Personal History Once for 1 Occurrences starting 04/27/2024 until 04/27/2024 documented as of this encounter Visit Diagnoses Diagnosis Replacement Aortic Valve Tissue Coronary Arterial Bypass Graft Status Post Personal History documented in this encounter Care Teams Valve Grinder Relationship Specialty Start Date End Date None Reported, Pcp PCP - General Family Medicine 02/28/24 documented as of this encounter
--- OUTSIDE RECORDS SUMMARY | 2024-05-21 12:18 | XMS_ITS | Encounter Summary ---
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 [address] Phone: tel: fax: [facility] Region Referral ID Status Reason Start Date Expiration Date V isits Requested Visits Authorized [id number] Authorized 02/20/2024 02/19/2025 45 45 Encounter Details Date Type Department Care Team (Latest Contact Info) Description 04/20/2024 1:50 PM PROGRAM PRODUCTION SPECIALIST - 04/20/2024 11:59 PM PROGRAM PRODUCTION SPECIALIST Hospital Encounter Department of Cardiac Rehabilitation in [place], [place] [address] [place] [phone] Keon Peace M.D. [address] [place] [phone] Replacement Aortic Valve Tissue; Coronary Arterial Bypass Graft Status Post Personal History Discharge Disposition: Home or Self Care Social History Tobacco Use Types Packs/Day Years Used Date Smoking Tobacco: Never Dental Answer Date Recorded Dental: Regular Dentist Unknown 12/04/19 24 Comments Unknown Sex and Gender Information Value Date Recorded Sex Assigned at Not on file Legal Sex Female 4:49 PM PROGRAM PRODUCTION SPECIALIST Gender Identity Not on file Sexual Orientation Not on file documented as of this encounter Plan of Treatment Upcoming Encounters Date Type Department Care Team (Late st Contact Info) Description 05/22/2024 2:00 PM PROGRAM PRODUCTION SPECIALIST Appointment Department of Cardiac Rehabilitation in [place] [address] [place] [address] Keon Peace M.D. [address] [place] [phone] 05/25/2024 2:00 PM PROGRAM PRODUCTION SPECIALIST Appointment Department of Cardiac Rehabilitation in [place] [address] [place] [address] Keon Peace M.D. [address] [place] [phone] 05/27/2024 2:00 PM PROGRAM PRODUCTION SPECIALIST Appointment Department of Cardiac Rehabilitation in [place] [address] [place] [address] Keon Peace M.D. [address] [place] [address] 05/29/2024 2:00 PM PROGRAM PRODUCTION SPECIALIST Appointment Department of Cardiac Rehabilitation in [place] [address] [place] [address] Keon Peace M.D. [address] [place], [place] [address], [place] [address] 06/01/2024 2:00 PM PROGRAM PRODUCTION SPECIALIST Appointment Department of Cardiac Rehabilitation in [place], [place] [address] [place] [address] Keon Peace M.D. [address] [place] [address] 06/03/2024 2:00 PM PROGRAM PRODUCTION SPECIALIST Appointment Department of Cardiac Rehabilitation in [place] [address] [place] [address] Keon Peace M.D. [address] [place] [address], [place] [address] 06/05/2024 2:00 PM PROGRAM PRODUCTION SPECIALIST Appointment Department of Cardiac Rehabilitation in [place] [address] [place] [address] Keon Peace M.D. [address] [place] [address], [place] [address] 06/08/2024 2:00 PM CDT Appointment Department of Cardiac Rehabilitation in [place] [address] [place] [address] Keon Peace M.D. [address] [place] [address], [place] [address] 06/10/2024 2:00 PM CDT Appointment Department of Cardiac Rehabilitation in [place] [address] [place] [address] Keon Peace M.D. [address] [place] [address] 06/12/2024 2:00 PM CDT Appointment Department of Cardiac Rehabilitation in [place], [place] [address] [place] [phone] Keon Peace M.D. 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
--- OUTSIDE RECORDS SUMMARY | 2024-05-21 12:18 | XMS_ITS | Encounter Summary ---
Author Organization [facility] Address [address] [place] [address] Care Team Providers Care Phys Asst Name Role Phone None Reported, Pcp Primary Care Provider Unavail able Encounter Details Date Type Department Care Team (Latest Contact Info) Description 04/16/2024 Plan of Care Documentation Department of Cardiac Rehabilitation in [place] [address] [place] [address] Social History Tobacco Use Types Packs/Day Years Used Date Smoking Tobacco: Never Dental Answer Date Recorded Dental: Regular Dentist Unknown 12/04/19 24 Comments Unknown Sex and Gender Information Value Date Recorded Sex Assigned at Not on file Legal Sex Female 4:49 PM [employer]INE [employer] ATTENDANT Gender Identity Not on file Sexual Orientation Not on file documented as of this encounter Miscellaneous Notes * Specialty Plan of Care - Delmi Link R.N. - 04/16/2024 9:49 AM MARINE [employer]ATION ATTENDANT Images from the original note were not included. Ms. Cody (88 y.o., : 1935, ) was referred to the [facility] on 02/10/2024, by Lakisha and has completed 21 sessions out of the 36 prescribed. 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 Patient has attended 11 sessions of cardiac rehab and feels it has been going well. Patient had Aortic valve replace ment with [id number] mm tissue valve, Coronary artery bypass grafting [...] she is getting stronger and progressing well. Cardiovascular Symptoms None None None Home O2 Use No No Ejection Fraction Date 01/03/2024 01/03/2024 01/03/2024 Ejection Fraction (EF) % 55 % 55 % 55 % [place] [employer] Functional Class I - Normal exertion ability I - Normal exertion ability Other Education Documentation No documentation found. Exercise [...] min walk well. 02/20/2024 02/24/2024 03/18/2024 04/16/2024 Exercise Assessment ITP Inclusion: Exercise Assessment Initial Initial Reassessment Reassessment Resting HR 68 Resting HR (Telemetry) 68 Resting Pulse 68 Cardiac Rhythm SR SR SR Ectopy PVCs PVCs PVCs Ectopy Frequency Rare Rare Rare Exercise Limitations No No No No Assistive Device None None None ADLs Independent Independent Independent Peak METs 1.59 3.22 3.3 Aerobic Minutes per Day (Home) 0 minutes 0 minutes Aerobic Days per Week (Home) 0 Days 0 Days Aerobic Minutes per Day (Rehab) 3 minutes 50 minutes 50 minutes Aerobic Days per Week (Rehab) 3 Days 3 Days Aerobic Minutes per Week 150 30 second chair stand 1 Comments Pt tolerated first exercise sesssion well, no c/o Patient states that she walks and does steps several times a day. No formal exercise routine with home TM Pt has been doing stairs 10xs/day.She has been doing things around the house to stay active. Pt has also been shopping. She has a treadmill at home. 02/20/2024 03/19/2024 04/16/2024 Exercise Prescription Frequency of Sessions Weekly Weekly Weekly Sessions per week 3 times per week 3 times per week 3 times per week Intensity Work at a level that is comfortable but also challenging Work at a level that is comfortable but also challenging Work at a level that is comfortable but also challenging Target heart rate (pulse): 20-40 greater than RHR 20-40 greater than RHR 20-40 greater than RHR Rating of Perceived Exertion range (RPE): 11-13 11-13 11-13 METS: 2-3 2.5-3.5 2.5-3.5 Warm Up Minutes: 3-5 3-5 3-5 Aerobic exercise minutes: 30 50 50 Cool Down minutes: 3-5 3-5 3-5 Goal Minutes/Week Gradually progress to 150+ minutes of aerobic exercise per week. Gradually progress to 150+ minutes of aerobic exercise per week Gradually progress to 150 + minutes of aerobic exercise per week. Rehab Aerobic Exercise Equipment Recumbent stepper (with or without arms);Treadmill;Arm Ergometer Arm Ergometer;Treadmill;Recumbent stepper (with or without arms) Arm Ergometer;Treadmill;Recumbent stepper (with or without arms) Non-Rehab Aerobic Exercise Equipment Walking Walking Progression Use RPE to guide when to increase work level intensity and duration;Increase 1-5 minutes each session, as tolerated Use RPE to guide when to increase work level intensity and duration;Increase .25-.5 MET per week as tolerated Use RPE to guide when to increase work level intensity and dur ation;Increase .25-.5 MET per week as tolerated Flexibility and Balance Stretch major muscle groups daily Stretch major muscle groups daily Stretchmajor muscle groups daily Sternal precautions Yes Yes Sternal precautions comment s/p AVR/CABG 12/31- continue 20lb weight limit until 03/15 Wt restrictions are off for lifting Hobbies/Activities Avoid prolonged sitting Avoid prolonged sitting Shopping;Gardening/Yardwork/Housework Comments: Pt has stairs at home that she is walking 10x/day. She stays active doing things around the house. Pt also has a treadmill. 02/20/2024 03/19/2024 04/16/2024 Exercise Plan Goals Compliance to on-site program;Increase exercise duration;Improve exercise tolerance Compliance to on-site program;Increase exercise duration;Improve exercise tolerance Compliance to on-site program;Increase exercise duration;Improve exercise tolerance Interventions Facility orientation;Review of signs/symptoms to report;Therapist Discussion Therapist Discussion Therapist Discussion Progress Toward Goals Patient would like to [...] and time on modalities while attending CR. Exercise Education Documentation Exercise Program Guidelines [id number], taught by Gosia Rivas R.N. at 03/13/2024 10:24 AM. Learner: Patient Readiness: Eager Method: Explanation Response: Able to Teach Back Interval Training [id number], taught by Skye Juarez at 03/23/2024 3:09 PM. Learner: Patient Readiness: Eager Method: Explanation, Handout, Class / Group Response: Able to Teach Back Stretches [id number], taught by Skye Juarez at 03/18/2024 3:09 PM. Learner: Patient Readiness: Eager Method: Explanation, Handout, Class / Group Response: Able to Teach Back Nutrition Assessment 02/20/2024 04/16/2024 Nutrition Assessment ITP Inclusion: Nutrition Assessment Initial Reassessment Dietary Recommendations Low Salt;Low Fat/ Low Cholesterol Low Salt;Low Fat/ Low Cholesterol Low Salt Amount 2000 mg 2000 mg Caffeine Intake (oz per week) 0 oz Appetite Fair Good Comments Appetite fair to good - is down 10 lbs 02/20/2024 03/19/2024 04/16/2024 Plan Goals Normalize appetite;Increase vegetable intake;Increase fruit intake;Maintain current weight Normalize appetite;Increase vegetable intake;Increase fruit intake;Maintain current weight Normalize appetite;Increase vegetable intake;Increase fruit intake;Maintain current weight Nutrition Counseling Staff education only Interventions Therapist discussion Therapist discussion Therapist discussion Progress Toward Goals Patient states that she [...] and vegetables. Pt's appetite is coming back. Nutrition Education Documentation Nutrition Guidelines for Cholesterol, Triglycerides and Sodium [id number], taught by Skye Juarez at 04/03/2024 3:01 PM. Learner: Patient Readiness: Eager Method: Explanation, Handout, Class / Group Response: Able to Teach Back How to Read a Food Label [id number], taught by Gosia Rivas RRemy at 03/30/2024 2:47 PM. Learner: Patient Readiness: Eager Method: Explanation Response: Able to Teach Back Mediterranean Diet Pyramid: Guidelines for Adults [id number], taught by Skye Juarez at 02/26/2024 3:06 PM. Learner: Patient Readiness: Eager Method: Explanation, Handout, Class / Group Response: Able to Teach Back Mediterranean Diet [id number], taught by Skye Juarez at 02/26/2024 3:06 PM. Learner: Patient Readiness: Eager Method: Explanation, Handout, Class / Group Response: Able to Teach Back Psychosocial Assessment 02/20/2024 03/19/2024 04/16/2024 Psychosocial Assessment ITP Inclusion: Psychosocial Initial Reassessment Reassessment Social Drivers of Health have been reviewed. For high-risk areas identified, a plan of treatment and follow-up information will be documented in appropriate areas within the ITP Yes Yes Yes Current Medication Therapy Yes Yes Yes Psychosocial Medications Zoloft Zoloft Zoloft Current Issues None Stress Stress Symptom Scale 1 Patient Stress Factors None identified None identified None identified Family Stress Factors None identified None identified None identified Needs Expressed Denies Denies Denies Comments Spouse in November. She has family near by and very supportive for over the Holidays Pt states her mental health has been good. She has a strons support system in her family. She has 6 kids who take care of her and bring her food. 02/20/2024 03/19/2024 04/16/2024 Plan Goals Continue to use effective stress management techniques;Identify a positive support system Continue to use effective stress management techniques;Identify a positive support system Continue to use effective stress management techniques;Identify a positive support system Interventions Therapist discussion Therapist discussion Therapist discussion;Discussed/reviewed current coping skills Progress Toward Goals Patient reports feeling [...] monitor and support pt at upcoming sessions. Psychosocial Education Documentation Relaxation Techniques [id number], taught by Skye Juarez at 04/10/2024 3:02 PM. Learner: Patient Readiness: Eager Method: Explanation, Handout, Class / Group Response: Able to Teach Back Stress Reducers [id number], taught by Skye Juarez at 04/08/2024 3:04 PM. Learner: Patient Readiness: Eager Method: Explanation, Handout, Class / Group Response: Able to Teach Back Stress Management [id number], taught by Gosia Rivas R.N. at 04/08/2024 1:47 PM. Learner: Patient Readiness: Eager Method: Explanation Response: Able to Teach Back Knowing About Depression Finding Your Way [id number], taught by Skey Juarez at 04/06/2024 3:04 PM. Learner: Patient Readiness: Eager Method: Explanation, Handout, Class / Group Response: Able to Teach Back My Road to Better Health Sleep [id number], taught by Gosia Rivas R.N. at 03/04/2024 1:54 PM. Learner: Patient Readiness: Eager Method: Explanation Response: Able to Teach Back Other Core Components Hypertension Assessment 02/20/2024 03/18/2024 04/16/2024 Hypertension ITP Inclusion: Hypertension Assessment Initial Reassessment Reassessment History of Hypertension Yes Yes Current Medication Therapy Yes Yes Yes Hypertension Medications Metoprolol, Lasix Metoprolol, Lasix Metoprolol, lasix Blood Pressure 128/68 Resting BP (Telemetry) 128/68 02/20/2024 03/19/2024 04/16/2024 Plan Goals Stable BP response;BP at physician [...] educate pt on hypertension at upcoming sessions. Hypertension Education Documentation High Blood Pressure Also Known as Hypertension [id number], taught by Gosia Rivas R.N. at 04/15/2024 2:02 PM. Learner: Patient Readiness: Eager Method: Explanation Response: Able to Teach Back Risk Factors For Heart Disease [id number], taught by Skye Juarez at 03/06/2024 2:47 PM. Learner: Patient Readiness: Acceptance Method: Explanation, Handout, Class / Group Response: Able to Teach Back Hyperlipidemia Assessment 02/21/2024 03/19/2024 04/16/2024 Hyperlipidemia Assessment History of Hyperlipidemia Yes Yes Yes Current Medication Therapy Yes Yes Yes Hyperlipidemia Medications Atorvastatin 20 mg daily Atorvastatin 20 mg daily Atorvastatin Lipids 2023 11:12 AM CHOL 184 TRIG 161 HDL 88 TTLCHOLHDLRT 2.09 02/21/2024 03/19/2024 04/16/2024 Plan Goals Understand current lipid profile;Lipids in optimal range Understand current lipid profile;Lipids in optimal range Understand current lipid profile;Lipids in optimal range Interventions Therapist discussion;Medication change Therapist discussion;Medication change Therapist discussion;Medication change Progress Toward Goals Educated patient on ways [...] on lipid management at upcoming sessi ons. Hyperlipidemia Education Documentation No documentation found. Education Comments No comments found. Diabetes Assessment 02/21/2024 03/19/2024 04/16/2024 Diabetes History of Diabetes Diabetes Type II Diabetes Type II Diabetes Type II Current Medication Therapy Yes Yes Yes Current Medication Therapy Jariance, Metformin, Glipizide Jariance, Metformain, Glipizide Jaridance, Metformin, Glipizide Do you monitor your blood glucose at home? No No No Diabetic Labs No lab values to display. 02/21/2024 03/19/2024 04/16/2024 Plan Goals Recognition of hypo/hyperglycemia symptoms;HbgA1c at [...] patine on diabetes management at upcoming sessions. Diabetes Education Documentation No documentation found. Tobacco Assessment 02/21/2024 03/19/2024 Tobacco Assessment Smoking Status Never - no goals/interventions indicated Never - no goals/interventions indicated Social History Tobacco Use Smoking Status Never Smokeless Tobacco Not on file Tobacco Education Documentation No documentation found. Heart Failure Assessment 02/21/2024 03/19/2024 Heart Failure Assessment History of Heart Failure No, no goals / interventions indicated No, no goals / interventions indicated Heart Failure Education Documentation No documentation found. Medication Compliance Assessment 02/21/2024 03/19/2024 04/16/2024 Medications Have you been compliant with all medications? Yes Yes Yes 02/21/2024 03/19/2024 04/16/2024 Plan Goals Medication compliance;Knowledge of medication Medication [...] Pt continues to take medications as prescribed. Medication Compliance Education Documentation No documentation found. Patient education given on 04/15/24 and the patient expresses understanding and acceptance of instructions. Delmi Link R.N. 04/16/2024 9:49 AM MARINE SERVICE [employer]ATION ATTENDANT Medications were reviewed every visit. NE SERVICE STATION ATTENDANT documented in this encounter Plan of Treatment Upcoming Encounters Date Type Department Care Team (Late st Contact Info) Description 05/22/2024 2:00 PM MARINE SERVICE STATION ATTENDANT Appointment Department of Cardiac Rehabilitation in [place], [place] [address] [place] [address] Keon Peace M.D. [address] [place] [phone] 05/25/2024 2:00 PM MARINE SERVICE STATION ATTENDANT Appointment Department of Cardiac Rehabilitation in [place], [place] [address] [place] [address] Keon Peace M.D. [address] [place] [address] 05/27/2024 2:00 PM MARINE SERVICE STATION ATTENDANT Appointment Department of Cardiac Rehabilitation in [place], [place] [address] [place] [address] Keon Peace M.D. [address] [place] [address] 05/29/2024 2:00 PM MARINE SERVICE STATION ATTENDANT Appointment Department of Cardiac Rehabilitation in [place] [address] [place] [address] Keon Peace M.D. [address] [place] [address] 06/01/2024 2:00 PM MARINE SERVICE STATION ATTENDANT Appointment Department of Cardiac Rehabilitation in [place] [address] [place] [address] Keon Peace M.D. [address] [place] [address] 06/03/2024 2:00 PM MARINE SERVICE STATION ATTENDANT Appointment Department of Cardiac Rehabilitation in [place] [address] [place] [address] Keon Peace M.D. [address] [place] [address] 06/05/2024 2:00 PM MARINE SERVICE STATION ATTENDANT Appointment Department of Cardiac Rehabilitation in [place] [address] [place] [address] Keon Peace M.D. [address] [place] [address] 06/08/2024 2:00 PM CDT Appointment Department of Cardiac Rehabilitation in [place], [place] [address] [place] [address] Keon Peace M.D. [address] [place] [address] 06/10/2024 2:00 PM CDT Appointment Department of Cardiac Rehabilitation in [place], [place] [address] [place] [address] Keon Peace M.D. [address] [place] [address] 06/12/2024 2:00 PM CDT Appointment Department of Cardiac Rehabilitation in [place] [address] [place] [address] Keon Peace M.D. [address] [place] [address] documented as of this encounter Visit Diagnoses Not on filedocumented in this encounter Care Teams Phys Asst Relationship Specialty Start Date End Date None Reported, Pcp PCP - General Family Medicine 02/28/24 documented as of this encounter
--- OUTSIDE RECORDS SUMMARY | 2024-05-21 12:18 | XMS_ITS | Clinical Summary ---
Author Organization [facility] Address [address] [place] [address] Care Team Providers Care Appraiser Name Role Phone None Reported, Pcp Primary Care Provider Unavail able Source Comments Patient records contain information from all sites at [facility]. For routine questions regarding patient records, call [phone] during business hours, M-F 8:00 AM - 5:00 PM Central Time. Record requests for emergency care only can be directed to [phone] at any time.[facility] Allergies Active Allergy Reactions Criticality Noted Date Comments Penicillin Itching 02/20/2024 Penicillins Hives only, no other systemic symptoms,Itching Low 06/12/2005 Medications No known medications Active Problems No known active problems Encounters Date Type Department Care Team Description 05/14/2024 Plan of Care Documentation Department of Cardiac Rehabilitation in [address] [address] 05/14/2024 Documentation Department of Cardiac Rehabilitation in [address] [address] Jyoti King C.Ph.T. 05/14/2024 Clinical Communication Department of Cardiac Rehabilitation in [address] [address] Jyoti King C.Ph.T. 05/01/2024 1:50 PM SALES OFFICE ADMINISTRATOR - 05/01/2024 11:59 PM SALES OFFICE ADMINISTRATOR Hospital Encounter Department of Cardiac Rehabilitation in [address] [address] Keon Peace M.D. Replacement Aortic Valve Tissue; Coronary Arterial Bypass Graft Status Post Personal History Discharge Disposition: Home or Self Care 04/29/2024 1:45 PM SALES OFFICE ADMINISTRATOR - 04/29/2024 11:59 PM SALES OFFICE ADMINISTRATOR Hospital Encounter Department of Cardiac Rehabilitation in [address] [address] Keon Peace M.D. Replacement Aortic Valve Tissue; Coronary Arterial Bypass Graft Status Post Personal History Discharge Disposition: Home or Self Care 04/27/2024 1:56 PM SALES OFFICE ADMINISTRATOR - 04/27/2024 11:59 PM SALES OFFICE ADMINISTRATOR Hospital Encounter Department of Cardiac Rehabilitation in [address] [address] Keon Peace M.D. Replacement Aortic Valve Tissue; Coronary Arterial Bypass Graft Status Post Personal History Discharge Disposition: Home or Self Care 04/24/2024 1:43 PM SALES OFFICE ADMINISTRATOR - 04/24/2024 11:59 PM SALES OFFICE ADMINISTRATOR Hospital Encounter Department of Cardiac Rehabilitation in [address] [address] Keon Peace M.D. Replacement Aortic Valve Tissue; Coronary Arterial Bypass Graft Status Post Personal History Discharge Disposition: Home or Self Care 04/22/2024 1:59 PM SALES OFFICE ADMINISTRATOR - 04/22/2024 11:59 PM SALES OFFICE ADMINISTRATOR Hospital Encounter Department of Cardiac Rehabilitation in [address] [address] Keon Peace M.D. Replacement Aortic Valve Tissue; Coronary Arterial Bypass Graft Status Post Personal History Discharge Disposition: Home or Self Care 04/20/2024 1:50 PM SALES OFFICE ADMINISTRATOR - 04/20/2024 11:59 PM SALES OFFICE ADMINISTRATOR Hospital Encounter Department of Cardiac Rehabilitation in [address] [address] Keon Peace M.D. Replacement Aortic Valve Tissue; Coronary Arterial Bypass Graft Status Post Personal History Discharge Disposition: Home or Self Care 04/17/2024 1:44 PM SALES OFFICE ADMINISTRATOR - 04/17/2024 11:59 PM SALES OFFICE ADMINISTRATOR Hospital Encounter Department of Cardiac Rehabilitation in [address] [address] Keon Peace M.D. Replacement Aortic Valve Tissue; Coronary Arterial Bypass Graft Status Post Personal History Discharge Disposition: Home or Self Care 04/16/2024 Plan of Care Documentation Department of Cardiac Rehabilitation in [address] [address] 04/15/2024 1:53 PM SALES OFFICE ADMINISTRATOR - 04/15/2024 11:59 PM SALES OFFICE ADMINISTRATOR Hospital Encounter Department of Cardiac Rehabilitation in [address] [address] Keon Peace M.D. Replacement Aortic Valve Tissue; Coronary Arterial Bypass Graft Status Post Personal History Discharge Disposition: Home or Self Care 04/13/2024 1:41 PM SALES OFFICE ADMINISTRATOR - 04/13/2024 11:59 PM SALES OFFICE ADMINISTRATOR Hospital Encounter Department of Cardiac Rehabilitation in [address] [address] Keon Peace M.D. Replacement Aortic Valve Tissue; Coronary Arterial Bypass Graft Status Post Personal History Discharge Disposition: Home or Self Care 04/10/2024 1:44 PM SALES OFFICE ADMINISTRATOR - 04/10/2024 11:59 PM SALES OFFICE ADMINISTRATOR Hospital Encounter Department of Cardiac Rehabilitation in [address] [address] Keon Peace M.D. Replacement Aortic Valve Tissue; Coronary Arterial Bypass Graft Status Post Personal History Discharge Disposition: Home or Self Care 04/08/2024 1:43 PM SALES OFFICE ADMINISTRATOR - 04/08/2024 11:59 PM SALES OFFICE ADMINISTRATOR Hospital Encounter Department of Cardiac Rehabilitation in [address] [address] Keon Peace M.D. Replacement Aortic Valve Tissue; Coronary Arterial Bypass Graft Status Post Personal History Discharge Disposition: Home or Self Care 04/06/2024 1:46 PM SALES OFFICE ADMINISTRATOR - 04/06/2024 11:59 PM SALES OFFICE ADMINISTRATOR Hospital Encounter Department of Cardiac Rehabilitation in [address] [address] Keon Peace M.D. Replacement Aortic Valve Tissue; Coronary Arterial Bypass Graft Status Post Personal History Discharge Disposition: Home or Self Care 04/03/2024 1:37 PM SALES OFFICE ADMINISTRATOR - 04/03/2024 11:59 PM SALES OFFICE ADMINISTRATOR Hospital Encounter Department of Cardiac Rehabilitation in [address] [address] Keon Peace M.D. Replacement Aortic Valve Tissue; Coronary Arterial Bypass Graft Status Post Personal History Discharge Disposition: Home or Self Care 03/30/2024 1:33 PM SALES OFFICE ADMINISTRATOR - 03/30/2024 11:59 PM SALES OFFICE ADMINISTRATOR Hospital Encounter Department of Cardiac Rehabilitation in [address] [address] Keon Peace M.D. Replacement Aortic Valve Tissue; Coronary Arterial Bypass Graft Status Post Personal History Discharge Disposition: Home or Self Care 03/27/2024 12:06 PM SALES OFFICE ADMINISTRATOR - 03/27/2024 11:59 PM SALES OFFICE ADMINISTRATOR Hospital Encounter Department of Cardiac Rehabilitation in [address] [address] Keon Peace M.D. Replacement Aortic Valve Tissue; Coronary Arterial Bypass Graft Status Post Personal History Discharge Disposition: Home or Self Care 03/23/2024 1:27 PM SALES OFFICE ADMINISTRATOR - 03/23/2024 11:59 PM SALES OFFICE ADMINISTRATOR Hospital Encounter Department of Cardiac Rehabilitation in [address] [address] Keon Peace M.D. Replacement Aortic Valve Tissue; Coronary Arterial Bypass Graft Status Post Personal History Discharge Disposition: Home or Self Care 03/20/2024 1:39 PM SALES OFFICE ADMINISTRATOR - 03/20/2024 11:59 PM SALES OFFICE ADMINISTRATOR Hospital Encounter Department of Cardiac Rehabilitation in [address] [address] Keon Peace M.D. Replacement Aortic Valve Tissue; Coronary Arterial Bypass Graft Status Post Personal History Discharge Disposition: Home or Self Care 03/19/2024 Plan of Care Documentation Department of Cardiac Rehabilitation in [address] [address] 03/18/2024 1:28 PM SALES OFFICE ADMINISTRATOR - 03/18/2024 11:59 PM SALES OFFICE ADMINISTRATOR Hospital Encounter Department of Cardiac Rehabilitation in [address] [address] Keon Peace M.D. Replacement Aortic Valve Tissue; Coronary Arterial Bypass Graft Status Post Personal History Discharge Disposition: Home or Self Care 03/16/2024 1:40 PM SALES OFFICE ADMINISTRATOR - 03/16/2024 11:59 PM SALES OFFICE ADMINISTRATOR Hospital Encounter Department of Cardiac Rehabilitation in [address] [address] Keon Peace M.D. Replacement Aortic Valve Tissue; Coronary Arterial Bypass Graft Status Post Personal History Discharge Disposition: Home or Self Care 03/13/2024 10:14 AM SALES OFFICE ADMINISTRATOR - 03/13/2024 11:59 PM SALES OFFICE ADMINISTRATOR Hospital Encounter Department of Cardiac Rehabilitation in [address] [address] Keon Peace M.D. Replacement Aortic Valve Tissue; Coronary Arterial Bypass Graft Status Post Personal History Discharge Disposition: Home or Self Care 03/11/2024 1:46 PM SALES OFFICE ADMINISTRATOR - 03/11/2024 11:59 PM SALES OFFICE ADMINISTRATOR Hospital Encounter Department of Cardiac Rehabilitation in [address] [address] Keon Peace M.D. Replacement Aortic Valve Tissue; Coronary Arterial Bypass Graft Status Post Personal History Discharge Disposition: Home or Self Care 03/09/2024 1:47 PM SALES OFFICE ADMINISTRATOR - 03/09/2024 11:59 PM SALES OFFICE ADMINISTRATOR Hospital Encounter Department of Cardiac Rehabilitation in [address] [address] Keon Peace M.D. Replacement Aortic Valve Tissue; Coronary Arterial Bypass Graft Status Post Personal History Discharge Disposition: Home or Self Care 03/06/2024 1:48 PM SALES OFFICE ADMINISTRATOR - 03/06/2024 11:59 PM SALES OFFICE ADMINISTRATOR Hospital Encounter Department of Cardiac Rehabilitation in [address] [address] Keon Peace M.D. Replacement Aortic Valve Tissue; Coronary Arterial Bypass Graft Status Post Personal History Discharge Disposition: Home or Self Care 03/04/2024 1:53 PM SALES OFFICE ADMINISTRATOR - 03/04/2024 11:59 PM SALES OFFICE ADMINISTRATOR Hospital Encounter Department of Cardiac Rehabilitation in [address] [address] Keon Peace M.D. Replacement Aortic Valve Tissue; Coronary Arterial Bypass Graft Status Post Personal History Discharge Disposition: Home or Self Care 03/02/2024 1:54 PM SALES OFFICE ADMINISTRATOR - 03/02/2024 11:59 PM SALES OFFICE ADMINISTRATOR Hospital Encounter Department of Cardiac Rehabilitation in [address] [address] Keon Peace M.D. Replacement Aortic Valve Tissue; Coronary Arterial Bypass Graft Status Post Personal History Discharge Disposition: Home or Self Care 02/28/2024 2:54 PM SALES OFFICE ADMINISTRATOR - 02/28/2024 3:46 PM SALES OFFICE ADMINISTRATOR [facility] [address] [place] [phone] Paul Caruso M.D. History Of Falling (Primary Dx); Injury Head Intracranial Closed Without Loss Of Consciousness Initial (HCC) Discharge Disposition: Home or Self Care 02/28/2024 1:53 PM SALES OFFICE ADMINISTRATOR - 02/28/2024 2:53 PM SALES OFFICE ADMINISTRATOR Hospital Encounter Department of Cardiac Rehabilitation in [address] [address] Keon Peace M.D. Replacement Aortic Valve Tissue; Coronary Arterial Bypass Graft Status Post Personal History Discharge Disposition: Home or Self Care 02/26/2024 2:00 PM SALES OFFICE ADMINISTRATOR - 02/26/2024 11:59 PM SALES OFFICE ADMINISTRATOR Hospital Encounter Department of Cardiac Rehabilitation in [address] [address] Keon Peace M.D. Replacement Aortic Valve Tissue; Coronary Arterial Bypass Graft Status Post Personal History Discharge Disposition: Home or Self Care 02/24/2024 1:44 PM SALES OFFICE ADMINISTRATOR - 02/24/2024 11:59 PM SALES OFFICE ADMINISTRATOR Hospital Encounter Department of Cardiac Rehabilitation in [address] [address] Keon Peace M.D. Replacement Aortic Valve Tissue; Coronary Arterial Bypass Graft Status Post Personal History Discharge Disposition: Home or Self Care 02/21/2024 Plan of Care Documentation Department of Cardiac Rehabilitation in [address] [address] 02/20/2024 2:34 PM SALES OFFICE ADMINISTRATOR - 02/20/2024 11:59 PM SALES OFFICE ADMINISTRATOR Hospital Encounter Department of Cardiac Rehabilitation in [address] [address] Keon Peace M.D. Discharge Disposition: Home or Self Care from Last 3 Months Social History Tobacco Use Types Packs/Day Years Used Date Smoking Tobacco: Never Dental Answer Date Recorded Dental: Regular Dentist Unknown 12/04/19 24 Comments Unknown Sex and Gender Information Value Date Recorded Sex Assigned at Not on file Legal Sex Female 4:49 PM SALES OFFICE ADMINISTRATOR Gender Identity Not on file Sexual Orientation Not on file Last Filed Vital Signs Vital Sign Reading Time Taken Comments Blood Pressure 141/70 02/28/2024 3:40 PM SALES OFFICE ADMINISTRATOR Pulse 80 02/28/2024 3:40 PM SALES OFFICE ADMINISTRATOR Temperature 36.5 C (97.7 F) 02/28/2024 3:40 PM SALES OFFICE ADMINISTRATOR Respiratory Rate 17 02/28/2024 3:40 PM SALES OFFICE ADMINISTRATOR Oxygen Saturation 95% 02/28/2024 3:40 PM SALES OFFICE ADMINISTRATOR Inhaled Oxygen Concentration - - Weight 65.2 kg (143 lb 11.2 oz) 02/28/2024 2:57 PM SALES OFFICE ADMINISTRATOR Height 162 cm (5' 3.78) 10/31/2012 4:13 PM CDT Body Mass Index - - Plan of Treatment Upcoming Encounters Date Type Department Care Team (Late st Contact Info) Description 05/22/2024 2:00 PM SALES OFFICE ADMINISTRATOR Appointment Department of Cardiac Rehabilitation in [address] [place] [address] Keon Peace M.D. [address] [place] [phone] 05/25/2024 2:00 PM SALES OFFICE ADMINISTRATOR Appointment Department of Cardiac Rehabilitation in [place] [address] [place] [address] Keon Peace M.D. [address] [facility] [address] 05/27/2024 2:00 PM SALES OFFICE ADMINISTRATOR Appointment Department of Cardiac Rehabilitation in [address] [place] [address] Keon Peace M.D. [address] [place] [address], [place] [address] 05/29/2024 2:00 PM SALES OFFICE ADMINISTRATOR Appointment Department of Cardiac Rehabilitation in [address] [place] [address] Keon Peace M.D. [address] [place] [address] 06/01/2024 2:00 PM SALES OFFICE ADMINISTRATOR Appointment Department of Cardiac Rehabilitation in [place] [address] [place] [address] Keon Peace M.D. [address] [place] [address], [place] [address] 06/03/2024 2:00 PM SALES OFFICE ADMINISTRATOR Appointment Department of Cardiac Rehabilitation in [address] [place] [address] Keon Peace M.D. [address] [place] [address], [place] [address] 06/05/2024 2:00 PM SALES OFFICE ADMINISTRATOR Appointment Department of Cardiac Rehabilitation in [place] [address] [place] [address] Keon Peace M.D. [address] [place] [address], [place] [address] 06/08/2024 2:00 PM CDT Appointment Department of Cardiac Rehabilitation in [address] [place] [address] Keon Peace M.D. [address] [place] [address], [place] [address] 06/10/2024 2:00 PM CDT Appointment Department of Cardiac Rehabilitation in [address] [place] [address] Keon Peace M.D. [address] [place] [address], [place] [address] 06/12/2024 2:00 PM CDT Appointment Department of Cardiac Rehabilitation in [address] [place] [address] Keon Peace M.D. [address] [place] [address] Health Maintenance Due Date Last Done Comments RSV vaccine - (32-36 weeks) or 60+ years (1 - 1-dose 75+ series) 2012 COVID-19 Vaccine ( - season) 2023 06/18/2020 Depression Screening (Annual PHQ-2) 04/01/2024 Fall Risk Screen (Annual) 04/01/2024 DTaP,Tdap,and Td Vaccines (3 - Td or Tdap) 02/21/2032 02/20/2022, 08/28/2011, 07/19/2006, Additional history exists Pneumococcal vaccine (50+ years) Completed 11/16/2014, 08/04/2007 Zoster Vaccines Completed 12/15/2018, 10/14/2018 Influenza Vaccine Completed 01/17/2024, , 02/16/2021, Additional history exists IPV Vaccines Aged Out No longer eligi ble based on patient's age to complete this topic Procedures Procedure Name Priority Date/Time Associated Diagnosis Comments CT CERVICAL SPINE WITHOUT IV CONTRAST RAD - Semiurgent (Fast; most ED patients; some inpatients) 02/28/2024 3:20 PM SALES OFFICE ADMINISTRATOR CT HEAD WITHOUT IV CONTRAST RAD - Semiurgent (Fast; most ED patients; some inpatients) 02/28/2024 3:20 PM SALES OFFICE ADMINISTRATOR 6 MINUTE WALK Routine 02/24/2024 2:00 PM SALES OFFICE ADMINISTRATOR Replacement Aortic Valve Tissue Coronary Arterial Bypass Graft Status Post Personal History from Last 3 Months Results * CT Cervical Spine without IV Contrast (02/28/2024 3:20 PM SALES OFFICE ADMINISTRATOR) Anatomical Region Laterality Modality Cervical Spine, Neuroradiolo gy RST LOS, Neuroradiology ARZ LOS, Neuroradiology FLA LOS N/A Computed Tomography 02/28/2024 3:18 PM SALES OFFICE ADMINISTRATOR Impressions 02/28/2024 3:31 PM SALES OFFICE ADMINISTRATOR No acute traumatic osseous injury of the cervical spine. Narrative 02/28/2024 3:31 PM SALES OFFICE ADMINISTRATOR EXAM: CT CERVICAL SPINE WITHOUT IV CONTRAST COMPARISON: None FINDINGS: The visualized portions of the calvarium and skull base demonstrate no acute abnormality. Mastoids are well aerated. Mental axial relationship is maintained. There is mild degenerative change with sclerosis and subchondral cysts. Cervical vertebral body height and alignment is maintained. Disc space height preserved. Posterior elements are intact and aligned. There is multilevel uncovertebral hypertrophy and mild facet arthropathy. There are levels with mild foraminal narrowing, findings greatest at C5-C6. There is no significant narrowing of the central canal. There is hyperattenuation with the appearance of broad disc bulge at the C6-C7 level. No acute abnormality of paraspinal soft tissues. Extensive vascular calcification of the aortic arch with bilateral carotid bulb atherosclerotic calcification. Nonspecific patchy right apical groundglass opacity and mild interstitial prominence. Procedure Note Efraín Ramon M.D. - 02/28/2024 EXAM: CT CERVICAL SPINE WITHOUT IV CONTRAST COMPARISON: None FINDINGS: The visualized portions of the calvarium and skull basedemonstrate no acute abnormality. Mastoids are well aerated. Mental axial relationship is maintained. There is mild degenerative changewith sclerosis and subchondral cysts. Cervical vertebral body height and alignment is maintained. Disc spaceheight preserved. Posterior elements are intact and aligned. There ismultilevel uncovertebral hypertrophy and mild facet arthropathy. There arelevels with mild foraminal narrowing, findings greatest at C5-C6. There is no significant narrowing of thecentral canal. There is hyperattenuation with the appearance of broad discbulge at the C6-C7 level. No acute abnormality of paraspinal soft tissues. Extensive vascularcalcification of the aortic arch with bilateral carotid bulbatherosclerotic calcification. Nonspecific patchy right apical groundglass opacity and mild interstitialprominence. IMPRESSION: No acute traumatic osseous injury of the cervical spine. Paul Caruso M.D. IMG CT PROCEDURES Final Resu lt * CT Head without IV Contrast (02/28/2024 3:20 PM SALES OFFICE ADMINISTRATOR) Anatomical Region Laterality Modality Head, Neuroradiology RST [facility] , Neuroradiology ARZ [facility], Neuroradiology FLA [facility] N/A Computed Tomography 02/28/2024 3:17 PM SALES OFFICE ADMINISTRATOR Impressions 02/28/2024 3:27 PM SALES OFFICE ADMINISTRATOR No acute intracranial abnormality. No acute traumatic osseous injury. Narrative 02/28/2024 3:27 PM SALES OFFICE ADMINISTRATOR EXAM: CT HEAD WITHOUT IV CONTRAST COMPARISON: None FINDINGS: There is generalized atrophy, microvascular ischemic changes and atherosclerotic vascular calcification. No abnormal extra-axial fluid collection, mass effect or midline shift. No evidence of acute major vessel territorial infarction or intracranial hemorrhage. Basilar cisterns and fourth ventricle are patent without mass impression. The visualized portions of the globes and orbits have a normal appearance. There is paranasal sinus mucosal thickening. No air-fluid level. The mastoids are well aerated. No acute abnormality of the calvarium or skull base. Procedure Note Efraín Ramon M.D. - 02/28/2024 EXAM: CT HEAD WITHOUT IV CONTRAST COMPARISON: None FINDINGS: There is generalized atrophy, microvascular ischemic changes andatherosclerotic vascular calcification. No abnormal extra-axial fluid collection, mass effect or midline shift. Noevidence of acute major vessel territorial infarction or intracranialhemorrhage. Basilar cisterns and fourth ventricle are patent without massimpression. The visualized portions of the globes and orbits have a normal appearance.There is paranasal sinus mucosal thickening. No air-fluid level. Themastoids are well aerated. No acute abnormality of the calvarium or skullbase. IMPRESSION: No acute intracranial abnormality. No acute traumatic osseous injury. Paul Caruso M.D. IMG CT PROCEDURES Final Resu lt * 6 MINUTE WALK (02/24/2024 2:00 PM SALES OFFICE ADMINISTRATOR) Narrative Gosia Rivas R.N. - 02/24/2024 2:00 PM SALES OFFICE ADMINISTRATOR Gosia Rivas R.N. 02/24/2024 2:23 PM Six Minute Walk Performed by: Gosia Rivas R.N. Authorized by: Keon Peace M.D. Were medications taken in the last 24 hours?: yes PRE WALK Assistive Device: None 6 Min Walk Distance Type: Hallway Height (cm): 162 Weight (kg): 64 BMI: 24.4 Resting Heart Rate: 79 Heart Rate Source: Telemetry Resp Rate: Resting SpO2: 96 SpO2 Site: Finger Resting BP: 154 60 BP Cuff Arm: Right BP Cuff Size: RegularSupplemental Oxygen used: Supplemental Oxygen Not Used Angina Scale: 0 - No Angina Claudication Scale: 1 - No Claudication Pain Ant Dyspnea: 0 - Nothing at all Ant Fatigue: 0 - Nothing at all Ant Rating of Perceived Exertion (RPE): 6 - No exertion at all POST WALK Heart Rate: 85 Heart Rate Source: Telemetry SpO2: 90 BP: 164 60 BP Cuff Side: Right Angina Scale: 0 - No Angina Claudication Scale: 1 - No Claudication Pain Ant Dyspnea: 0.5 - Very, Very Slight Ant Fatigue: 0 - Nothing at all Ant Rating of Perceived Exertion: 11 - Fairly Light Time of Test: 14:10 SALES OFFICE ADMINISTRATOR Total Distance Walked (Feet): 1009 Total Distance Walked (Meters): 307.54 Total # of Times Stopped: 0 Time Stopped (Seconds): 0 Time Walked (Seconds): 360 CALCULATIONS Estimated MPH: 1.9 Estimated METs: 2.46 % of Predicted Distance: 84.64 COMMENTS Pt tolerated 6 min walk well. us Keon Peace M.D. CV STRESS PROCEDURES Daya l Result from Last 3 Months Insurance [facility] [address] MEDICARE Care Teams Appraiser Relationship Specialty Start Date End Date None Reported, Pcp PCP - General Family Medicine 02/28/24
--- OUTSIDE RECORDS SUMMARY | 2024-05-21 12:18 | XMS_ITS | Encounter Summary ---
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 [address] Phone: tel: fax: [facility] Region Referral ID Status Reason Start Date Expiration Date V isits Requested Visits Authorized [id number] Authorized 02/20/2024 02/19/2025 45 45 Encounter Details Date Type Department Care Team (Latest Contact Info) Description 04/24/2024 1:43 PM PROFESSOR OF SURGERY - 04/24/2024 11:59 PM PROFESSOR OF SURGERY Hospital Encounter Department of Cardiac Rehabilitation in [place], [place] [address] [place] [phone] Keon Peace M.D. [address] [place] [phone] Replacement Aortic Valve Tissue; Coronary Arterial Bypass Graft Status Post Personal History Discharge Disposition: Home or Self Care Social History Tobacco Use Types Packs/Day Years Used Date Smoking Tobacco: Never Dental Answer Date Recorded Dental: Regular Dentist Unknown 12/04/19 24 Comments Unknown Sex and Gender Information Value Date Recorded Sex Assigned at Not on file Legal Sex Female 4:49 PM PROFESSOR OF SURGERY Gender Identity Not on file Sexual Orientation Not on file documented as of this encounter Plan of Treatment Upcoming Encounters Date Type Department Care Team (Late st Contact Info) Description 05/22/2024 2:00 PM PROFESSOR OF SURGERY Appointment Department of Cardiac Rehabilitation in [place] [address] [place] [address] Keon Peace M.D. [address] [place] [phone] 05/25/2024 2:00 PM PROFESSOR OF SURGERY Appointment Department of Cardiac Rehabilitation in [place] [address] [place] [address] Keon Peace M.D. [address] [place] [phone] 05/27/2024 2:00 PM PROFESSOR OF SURGERY Appointment Department of Cardiac Rehabilitation in [place] [address] [place] [address] Keon Peace M.D. [address] [place] [address] 05/29/2024 2:00 PM PROFESSOR OF SURGERY Appointment Department of Cardiac Rehabilitation in [place] [address] [place] [address] Keon Peace M.D. [address] [place], [place] [address], [place] [address] 06/01/2024 2:00 PM PROFESSOR OF SURGERY Appointment Department of Cardiac Rehabilitation in [place], [place] [address] [place] [address] Keon Peace M.D. [address] [place] [address] 06/03/2024 2:00 PM PROFESSOR OF SURGERY Appointment Department of Cardiac Rehabilitation in [place] [address] [place] [address] Keon Peace M.D. [address] [place] [address], [place] [address] 06/05/2024 2:00 PM PROFESSOR OF SURGERY Appointment Department of Cardiac Rehabilitation in [place] [address] [place] [address] Keon Peace M.D. [address] [place] [address], [place] [address] 06/08/2024 2:00 PM CDT Appointment Department of Cardiac Rehabilitation in [place] [address] [place] [address] Keon Peace M.D. [address] [place] [address], [place] [address] 06/10/2024 2:00 PM CDT Appointment Department of Cardiac Rehabilitation in [place] [address] [place] [address] Keon Peace M.D. [address] [place] [address] 06/12/2024 2:00 PM CDT Appointment Department of Cardiac Rehabilitation in [place], [place] [address] [place] [phone] Keon Peace M.D. 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
--- OUTSIDE RECORDS SUMMARY | 2024-05-21 12:18 | XMS_ITS | Encounter Summary ---
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 [address] Phone: tel: fax: [facility] Region Referral ID Status Reason Start Date Expiration Date V isits Requested Visits Authorized [id number] Authorized 02/20/2024 02/19/2025 45 45 Encounter Details Date Type Department Care Team (Latest Contact Info) Description 04/17/2024 1:44 PM EBD TEACHER - 04/17/2024 11:59 PM EBD TEACHER Hospital Encounter Department of Cardiac Rehabilitation in [place], [place] [address] [place] [phone] Keon Peace M.D. [address] [place] [address] Replacement Aortic Valve Tissue; Coronary Arterial Bypass Graft Status Post Personal History Discharge Disposition: Home or Self Care Social History Tobacco Use Types Packs/Day Years Used Date Smoking Tobacco: Never Dental Answer Date Recorded Dental: Regular Dentist Unknown 12/04/19 24 Comments Unknown Sex and Gender Information Value Date Recorded Sex Assigned at Not on file Legal Sex Female 4:49 PM EBD TEACHER Gender Identity Not on file Sexual Orientation Not on file documented as of this encounter Plan of Treatment Upcoming Encounters Date Type Department Care Team (Late st Contact Info) Description 05/22/2024 2:00 PM EBD TEACHER Appointment Department of Cardiac Rehabilitation in [place] [address] [place] [address] Keon Peace M.D. [address] [place] [phone] 05/25/2024 2:00 PM EBD TEACHER Appointment Department of Cardiac Rehabilitation in [place] [address] [place] [address] Keon Peace M.D. [address] [place] [address] 05/27/2024 2:00 PM EBD TEACHER Appointment Department of Cardiac Rehabilitation in [place] [address] [place] [address] Keon Peace M.D. [address] [place] [address] 05/29/2024 2:00 PM EBD TEACHER Appointment Department of Cardiac Rehabilitation in [place] [address] [place] [address] Keon Peace M.D. [address] [place], [place] [address], [place] [address] 06/01/2024 2:00 PM EBD TEACHER Appointment Department of Cardiac Rehabilitation in [place], [place] [address] [place] [address] Keon Peace M.D. [address] [place] [address] 06/03/2024 2:00 PM EBD TEACHER Appointment Department of Cardiac Rehabilitation in [place] [address] [place] [address] Keon Peace M.D. [address] [place] [address], [place] [address] 06/05/2024 2:00 PM EBD TEACHER Appointment Department of Cardiac Rehabilitation in [place] [address] [place] [address] Keon Peace M.D. [address] [place] [address], [place] [address] 06/08/2024 2:00 PM CDT Appointment Department of Cardiac Rehabilitation in [place] [address] [place] [address] Keon Peace M.D. [address] [place] [address], [place] [address] 06/10/2024 2:00 PM CDT Appointment Department of Cardiac Rehabilitation in [place] [address] [place] [address] Keon Peace M.D. [address] [place] [address] 06/12/2024 2:00 PM CDT Appointment Department of Cardiac Rehabilitation in [place], [place] [address] [place] [phone] Keon Peace M.D. 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
--- OUTSIDE RECORDS SUMMARY | 2024-05-21 12:18 | XMS_ITS | Encounter Summary ---
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 [address] Phone: tel: fax: [facility] Region Referral ID Status Reason Start Date Expiration Date V isits Requested Visits Authorized [id number] Authorized 02/20/2024 02/19/2025 45 45 Encounter Details Date Type Department Care Team (Latest Contact Info) Description 04/22/2024 1:59 PM REHABILITATION WORKER - 04/22/2024 11:59 PM REHABILITATION WORKER Hospital Encounter Department of Cardiac Rehabilitation in [place], [place] [address] [place] [phone] Keon Peace M.D. [address] [place] [phone] Replacement Aortic Valve Tissue; Coronary Arterial Bypass Graft Status Post Personal History Discharge Disposition: Home or Self Care Social History Tobacco Use Types Packs/Day Years Used Date Smoking Tobacco: Never Dental Answer Date Recorded Dental: Regular Dentist Unknown 12/04/19 24 Comments Unknown Sex and Gender Information Value Date Recorded Sex Assigned at Not on file Legal Sex Female 4:49 PM REHABILITATION WORKER Gender Identity Not on file Sexual Orientation Not on file documented as of this encounter Plan of Treatment Upcoming Encounters Date Type Department Care Team (Late st Contact Info) Description 05/22/2024 2:00 PM REHABILITATION WORKER Appointment Department of Cardiac Rehabilitation in [place] [address] [place] [address] Keon Peace M.D. [address] [place] [phone] 05/25/2024 2:00 PM REHABILITATION WORKER Appointment Department of Cardiac Rehabilitation in [place] [address] [place] [address] Keon Peace M.D. [address] [place] [phone] 05/27/2024 2:00 PM REHABILITATION WORKER Appointment Department of Cardiac Rehabilitation in [place] [address] [place] [address] Keon Peace M.D. [address] [place] [address] 05/29/2024 2:00 PM REHABILITATION WORKER Appointment Department of Cardiac Rehabilitation in [place] [address] [place] [address] Keon Peace M.D. [address] [place], [place] [address], [place] [address] 06/01/2024 2:00 PM REHABILITATION WORKER Appointment Department of Cardiac Rehabilitation in [place], [place] [address] [place] [address] Keon Peace M.D. [address] [place] [address] 06/03/2024 2:00 PM REHABILITATION WORKER Appointment Department of Cardiac Rehabilitation in [place] [address] [place] [address] Keon Peace M.D. [address] [place] [address], [place] [address] 06/05/2024 2:00 PM REHABILITATION WORKER Appointment Department of Cardiac Rehabilitation in [place] [address] [place] [address] Keon Peace M.D. [address] [place] [address], [place] [address] 06/08/2024 2:00 PM CDT Appointment Department of Cardiac Rehabilitation in [place] [address] [place] [address] Keon Peace M.D. [address] [place] [address], [place] [address] 06/10/2024 2:00 PM CDT Appointment Department of Cardiac Rehabilitation in [place] [address] [facility] [place] [address] Keon Peace M.D. [address] [place] [address] 06/12/2024 2:00 PM CDT Appointment Department of Cardiac Rehabilitation in [place], [place] [address] [place] [address] Keon Peace M.D. 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
--- NOTE | 2024-05-21 12:45 | CRLHL7_ITS ---
For Patients: As a result of the Century Cures Act, medical imaging exams and procedure reports are released immediately into your electronic medical record. You may view this report before your referring provider. If you have questions, please contact your health care provider. Indication: FOUR WEEKS OF SEVERE DIARRHEA Technique: CT abdomen/pelvis with IV contrast, 65 mL Isovue 370 Comparison: CTA chest/abdomen/pelvis report from 10/29/2023 Findings: Lower thorax: The heart is normal in size. No pericardial effusion. Aortic valve repair coronary artery calcifications and likely stenting. Dependent and bibasilar atelectasis. Abdomen/pelvis: The liver, gallbladder and biliary system, and spleen are unremarkable in appearance. Atrophic pancreas without pancreatic mass/lesion or peripancreatic inflammation. No adrenal nodules. Atrophic right kidney. The kidneys perfuse in a normal fashion. No suspicious enhancing renal masses/lesions. No renal calculi or hydroureteronephrosis. The bladder is unremarkable in appearance. The uterus and bilateral ovaries are unremarkable in appearance for the patient`s age. There is no evidence of bowel obstruction. The appendix is not discretely visualized; however, there are no inflammatory changes in the right lower quadrant to suggest acute appendicitis. There is mild circumferential wall thickening of the distal descending and sigmoid colon without pericolonic fat stranding. Few colonic diverticula without CT evidence of acute diverticulitis. No free air, free fluid, or abscess. No abdominopelvic lymphadenopathy. No abdominal aortic aneurysm. 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 Soft tissue/musculoskeletal: No acute abnormality. Remote compression fracture deformity of the T12 vertebral body. Degenerative changes of the lower lumbar spine. Status post median sternotomy. Impression: 1. Mild circumferential wall thickening of the distal descending and sigmoid colon without pericolonic fat stranding, suggestive of colitis. 2. No free air, free fluid, or abscess. 3. Incidental findings as detailed above. Please note that all CT scans at this facility use dose modulation, iterative reconstruction, and/or weight-based dosing when appropriate to reduce radiation dose to as low as reasonably achievable. Dictated by Riley Francis MD @ 05/21/2024 1:44:03 PM (Electronically Signed)
--- NOTE | 2024-05-21 13:00 | ED.GENADULT ---
HPI - General Adult General Date Seen: 05/21/24 Chief complaint: Diarrhea Stated complaint: 5-weeks of Diarrhea Time Seen by Provider: 05/21/24 12:29 Source: patient Mode of arrival: ambulatory Limitations: no limitations History of Present Illness HPI narrative: Patient is an 88-year-old female presenting to emergency department for diarrhea. Diarrhea has been going on for 4-5 weeks. She has been getting evaluated by her primary care provider outpatient for this. Had negative C diff and negative stool bacteria/overall/parasite test. Was recently started on Flagyl for this diarrhea. She states she went think started she was going constantly and it was liquid in nature. She does know that recently it seems to be improving and she did having normal bowel movement this morning followed by gradually softer stools. States she still has to have a bowel movement after every meal at least and sometimes multiple. Has not had any lightheadedness, dizziness, abdominal pain, chest pain, shortness of breath, weakness, numbness. States she does not feel dehydrated. States she is drinking plenty of fluids. Has no other concerns at this time other than the diarrhea. Has never had diarrhea like this before. No recent travel. Related Data Home Medications ?Medication ?Instructions ?Recorded ?Confirmed blood glucose control, normal 11/29/21 05/13/24 (Accu-Chek SmartView Control Solution) lancets (Accu-Chek Fastclix Lancet 11/29/21 05/13/24 Drum) [id number] 200 mcg-vit K 15 1 tab PO QDAY 11/29/21 05/13/24 mcg-lycope 150 lzw-yiqqur-pbmm tablet (Ocuvite Eye Plus Multi) omega 0-txn-fgo-fish oil 1,200 mg 1 cap PO DAILY 11/29/21 05/13/24 (144 mg-216 mg) capsule (Fish Oil) empagliflozin 10 mg tablet 10 mg PO QAM 11/22/23 05/13/24 (Jardiance) nitroglycerin 0.4 mg sublingual 0.4 mg sublingual ONCE PRN 01/29/24 05/13/24 tablet (Nitrostat) irbesartan 75 mg tablet mg PO DAILY 05/06/24 05/13/24 Previous Rx's ?Medication ?Instructions ?Recorded blood sugar diagnostic (Accu-Chek #100 strips 11/09/22 SmartView Test Strips) levothyroxine 75 mcg tablet 75 mcg PO QDAY #90 tabs 10/01/23 (Synthroid) furosemide 20 mg tablet 20 mg PO QAM #90 tabs 01/17/24 glipizide 10 mg tablet 10 mg PO BID #180 tabs 01/17/24 metoprolol succinate 25 mg 12.5 mg (1/2 x 25 mg) PO QDAY #45 01/17/24 tablet,extended release 24 hr tabs pioglitazone 15 mg tablet 15 mg PO QDAY #90 tabs 01/17/24 potassium chloride 10 mEq 10 meq PO QDAY #90 caps 01/17/24 capsule,extended release sertraline 100 mg tablet 100 mg PO QDAY #90 tabs 01/17/24 atorvastatin 20 mg tablet 20 mg PO QDAY #90 tabs 03/02/24 warfarin 2 mg tablet 3 mg PO QDAY #100 tabs 03/05/24 metformin 1,000 mg tablet 1,000 mg PO BID #180 tabs 03/09/24 alendronate 70 mg tablet 70 mg PO QWEEK #12 tabs 04/21/24 amiodarone 200 mg tablet 200 mg PO DAILY #30 tabs 05/12/24 metronidazole 500 mg tablet 500 mg PO Q8H #30 tabs 05/13/24 Allergies Allergy/AdvReac Type Severity Reaction Status Date / Time penicillin V Allergy Mild Hands and Verified 05/13/24 13:44 feet itchy,red Review of Systems Status of ROS: Reports: 10 or more systems reviewed and unremarkable except as noted in History and below [facility] Medical History ASCVD (arteriosclerotic cardiovascular disease) ?I25.10 - Atherosclerotic heart disease of [place] coronary artery without angina pectoris (ICD-10) Diabetes 1.5, managed as type 2 ?E13.9 - Other specified diabetes mellitus without complications (ICD-10) Hypertension ?I10 - Essential (primary) hypertension (ICD-10) Hyperlipidemia (08/16/09) ?E78.5 - Hyperlipidemia, unspecified (ICD-10) Hypothyroidism ?E03.9 - Hypothyroidism, unspecified (ICD-10) History of atrial fibrillation ?Z86.79 - Personal history of other diseases of the circulatory system (ICD-10) Asthma (08/16/09) ?J45.909 - Unspecified asthma, uncomplicated (ICD-10) Anxiety ?F41.9 - Anxiety disorder, unspecified (ICD-10) Osteoporosis ?M81.0 - Age-related osteoporosis without current pathological fracture (ICD-10) Thoracic compression fracture ?S22.000A - Wedge compression fracture of unspecified thoracic vertebra, initial encounter for closed fracture (ICD-10) Stress incontinence ?N39.3 - Stress incontinence (female) (male) (ICD-10) Diverticulosis (05/27/12) ?K57.90 - Diverticulosis of intestine, part unspecified, without perforation or abscess without bleeding (ICD-10) Adenomatous polyp of colon ?D12.6 - Benign neoplasm of colon, unspecified (ICD-10) Aortic stenosis ?I35.0 - Nonrheumatic aortic (valve) stenosis (ICD-10) Trochanteric bursitis ?M70.60 - Trochanteric bursitis, unspecified hip (ICD-10) Mass of right kidney ?N28.89 - Other specified disorders of kidney and ureter (ICD-10) Osteopenia (12/22/12) ?M85.80 - Other specified disorders of bone density and structure, unspecified site (ICD-10) Back pain ?M54.9 - Dorsalgia, unspecified (ICD-10) Fracture, humerus ?S42.309A - Unspecified fracture of shaft of humerus, unspecified arm, initial encounter for closed fracture (ICD-10) Surgical History Status post aortic valve replacement ?Z95.2 - Presence of prosthetic heart valve (ICD-10) Status post three vessel coronary artery bypass ?Z95.1 - Presence of aortocoronary bypass graft (ICD-10) Status post nasal surgery (08/16/09) ?Z98.890 - Other specified postprocedural states (ICD-10) Status post cataract extraction ?Z98.49 - Cataract extraction status, unspecified eye (ICD-10) Status post appendectomy (08/16/09) ?Z90.49 - Acquired absence of other specified parts of digestive tract (ICD-10) History of coronary artery stent placement (08/16/09) ?Z95.5 - Presence of coronary angioplasty implant and graft (ICD-10) History of colonoscopy ?Z98.890 - Other specified postprocedural states (ICD-10) Family History Family/Other Colon cancer Social History What is your current living situation?: I presently have a place to live In the past 12 months, utilities in danger of being shut off: no In past 12 months, lack of transportation kept you from medical appts, meetings, work, or getting things needed for daily living: no In the past 12 mos, have been you worried that your food would run out before you had money to buy more?: never true In the past 12 mos, the food you bought just didn't last and you didn't have money to buy more?: never true Smoking Status: Never smoker Second hand tobacco smoke exposure: No How often do you have a drink containing alcohol: never AUDIT-C Alcohol total score: 0 Non-prescribed substance use: denies use How often does anyone, including family, friends and others, physically hurt you: never How often does anyone, including family, friends and others, insult or talk down to you: never How often does anyone, including family, friends and others, threaten you with harm: never How often does anyone, including family, friends and others, scream or curse at you: never service: No Exam Narrative: Exam Narrative: Const: Well-nourished, Well-developed, in mild distress Eyes: PERRL, no conjunctival injection, and symmetrical lids HENT: Atraumatic external nose and ears. Moist mucous membranes. Neck: Symmetric, trachea midline, No thyromegaly. CVS: RRR, No murmurs or gallops. Peripheral pulses 2+ and equal in all extremities RESP: Unlabored respiratory effort. Clear to auscultation bilaterally. GI: Nontender/Nondistended, No rebound or guarding. MSK:Extremities w/o deformity, Normal Active ROM Skin: Warm, Dry. No rashes or lesions. Neuro: Normal Muscle tone, No focal neurological deficits. Psych: Awake, Alert, & Oriented x3. Appropriate mood and affect. Const: Vital Signs, click to edit/add: Vital Signs - 24 hr 05/21/24 12:18 Temperature 97.6 F Pulse Rate [Pulse Oximeter] 74 Respiratory Rate 16 Blood Pressure [Ri ght Upper Arm] 166/80 H Pulse Oximetry 95 Oxygen Delivery Me thod Room Air Course Vital Signs Vital signs: Initial Vital Signs Temperature 97.6 F 05/21/24 12:18 Temperature Source Temporal Artery Scan 05/21/24 12:18 Pulse Rate 74 05/21/24 12:18 Respiratory Rate 16 05/21/24 12:18 Blood Pressure 166/80 H 05/21/24 12:18 Blood Pressure Mean 108 H 05/21/24 12:18 Blood Pressure Position Sitting 05/21/24 12:18 Pulse Oximetry 95 05/21/24 12:18 Oxygen Delivery Method Room Air 05/21/24 12:18 Vital Signs Temperature 97.6 F 05/21/24 12:18 Pulse Rate 74 05/21/24 12:18 Respiratory Rate 16 05/21/24 12:18 Blood Pressure 166/80 H 05/21/24 12:18 Pulse Oximetry 95 05/21/24 12:18 Oxygen Delivery Method Room Air 05/21/24 12:18 Temperature 97.6 F 05/21/24 12:18 Pulse Rate 74 05/21/24 12:18 Respiratory Rate 16 05/21/24 12:18 Blood Pressure 166/80 H 05/21/24 12:18 Pulse Oximetry 95 05/21/24 12:18 Oxygen Delivery Method Room Air 05/21/24 12:18 Medications Administered Medications: Discontinued Medications Generic Name Dose Route Start Last Admin Trade Name Freq PRN Reason Stop Dose Admin Potassium Chloride 40 meq 05/21/24 13:43 05/21/24 13:54 Potassium Chloride 10 Meq Capsule Er PO 05/21/24 13:44 40 meq ONCE ONE Administration Medical Decision Making [facility] Narrative Medical decision making narrative: Patient is an 88-year-old female presenting for diarrhea. Based on her description does sound like the diarrhea is improving. Will do a CT scan see if there is any intra-abdominal abnormalities. Will also check a CBC, CMP, magnesium to look for electrolyte abnormalities or other signs of infection. She is on warfarin so INR will be checked. Showing no signs of dehydration at this time so fluids were not necessary. Lab work returned showing no concerning abnormalities. She has of a slightly low potassium and this was replenished. This low potassium is probably related to her diarrhea. CT scan reviewed by myself and the radiologist does show some mild colitis. At this point she is doing well and has stable vital signs. She is currently on Flagyl. I informed like quite a bit of medications can cause diarrhea and there may be a medication reaction causing this also informed and the colitis is most commonly viral in nature. I will give her information for GI follow-up with [facility] if she wants it. She also states she has not seen a wheel of fortune dealer since January and was concerned about this due to her recent triple bypass surgery in December. Did give her the phone number for [facility] of [facility], who she previously has seen, for follow-up. I did inform her for GI she may need to speak to her primary care provider for referral and if this continues to concern her. Lab Data Labs: Lab Results 05/21/24 05/21/24 Range/Units 12:47 13:00 WBC 5.93 (4.50-11.00) K/uL RBC 4.28 (4.00-5.20) m/uL Hgb 11.5 L (12.0-16.0) gm/dL Hct 36.8 (33.0-51.0) % MCV 86 (80-100) fL MCH 27 (26-34) pg MCHC 31 L (32-36) gm/dL RDW Coeff of Sher 17.5 H (11.5-15.5) % Plt Count 277 (140-440) K/uL Neut % (Auto) 66.0 (42.0-72.0) % Lymph % (Auto) 17.7 L (20-44) % [place] % (Auto) 10.1 (0.0-11.0) % Eos % (Auto) 4.0 (0.0-7.0) % Baso % (Auto) 1.0 (0.0-3.0) % Neut # (Auto) 3.91 (1.7-7.0) K/uL Lymph # (Auto) 1.00 (0.90-2.90) K/uL [place] # (Auto) 0.60 (0.00-0.90) K/UL Eos # (Auto) 0.24 (0.00-0.50) K/uL Baso # (Auto) 0.06 (0.00-0.30) K/uL Abs Immat Gran (auto) 0.07 (0.00-0.30) K/uL Imm/Tot Granulo (auto) 1.2 % INR 3.40 H (0.91-1.10) Sodium 134 L (135-149) mmol/L Potassium 3.1 L (3.6-5.1) mmol/L Chloride 101 (96-114) mmol/L Carbon Dioxide 24 (20-32) mmol/L Anion Gap 9 (7-15) mEq/L BUN 13 (7-30) mg/dL Creatinine 0.7 (0.5-1.5) mg/dL Estimated GFR 84 ml/min Glucose 185 H (60-115) mg/dL Calcium 8.9 (8.4-10.6) mg/dL Magnesium 1.6 (1.5-2.6) mg/dL Total Bilirubin 0.2 (0.1-1.5) mg/dL AST 48 H (12-35) U/L ALT 34 (4-35) U/L Alkaline Phosphatase 95 (40-150) U/L Total Protein 7.5 (6.0-8.3) g/dL Albumin 4.2 (3.3-5.0) g/dL POC Creatinine 0.7 (0.6-1.3) mg/dl Imaging Data CT scan abdomen pelvis: Attestation: I have reviewed the pertinent imaging results. Radiologist's impression: 1. Mild circumferential wall thickening of the distal descending and sigmoid colon without pericolonic fat stranding, suggestive of colitis. 2. No free air, free fluid, or abscess. 3. Incidental findings as detailed above. Please note that all CT scans at this facility use dose modulation, iterative reconstruction, and/or weight-based dosing when appropriate to reduce radiation dose to as low as reasonably achievable. Dictated by Riley Francis MD @ 05/21/2024 1:44:03 PM Discharge Plan Discharge Clinical Impression: Colitis Patient Disposition: Home, Self-Care Condition: Stable Instructions: Colitis (ED) Additional Instructions: Colitis most commonly is caused by viral etiology. Typically this would need to resolve on its own. Although diarrhea is also very common side effect from quite a few medications your on. If this continues to bother you you may speak to [facility] directly to possibly schedule an appointment but you may need a referral from your primary care provider. [employer] phone number is . I will also provide the number for the [facility] who would have been the ones who did your heart surgery at [place]. Prescriptions: No Action nitroglycerin [Nitrostat] 0.4 mg tablet, sublingual 0.4 mg sublingual ONCE PRN Rx Instructions: as a single dose; administer 5-10 minutes before situation known to precipitate angina attack irbesartan 75 mg tablet PO DAILY Jardiance 10 mg tablet 10 mg PO QAM potassium chloride 10 mEq capsule, extended release 10 meq PO QDAY Qty: 90 3RF metoprolol succinate 25 mg tablet extended release 24 hr 12.5 mg PO QDAY Qty: 45 3RF pioglitazone 15 mg tablet 15 mg PO QDAY Qty: 90 3RF furosemide 20 mg tablet 20 mg PO QAM Qty: 90 3RF glipizide 10 mg tablet 10 mg PO BID Qty: 180 3RF sertraline 100 mg tablet 100 mg PO QDAY Qty: 90 3RF metronidazole 500 mg tablet 500 mg PO Q8H Qty: 30 0RF (DME) blood glucose control, normal [Accu-Chek SmartView Contrl Dolores] Solution See Rx Instructions .Route Rx Instructions: As directed (DME) lancets [Accu-Chek Fastclix Lancet Drum] Misc See Rx Instructions .Route Rx Instructions: As directed Ocuvite Eye Plus Multi 200-15-150 mcg tablet 1 tab PO QDAY Rx Instructions: administer with a meal and a large glass of water omega 4-eop-tdb-fish oil [Fish Oil] 1,200 (144-216) mg capsule 1 cap PO DAILY (DME) Accu-Chek SmartView Test Strip Strip See Rx Instructions .ROUTE .COMPLEX Qty: 100 3RF Dose Instruction: TEST BLOOD SUGAR EVERY DAY (DUE FOR RECHECK IN CLINIC IN . PLAN FASTING LABS) Rx Instructions: TEST BLOOD SUGAR EVERY DAY (DUE FOR RECHECK IN CLINIC IN . PLAN FASTING LABS) levothyroxine [Synthroid] 75 mcg tablet 75 mcg PO QDAY Qty: 90 3RF atorvastatin 20 mg tablet 20 mg PO QDAY Qty: 90 0RF warfarin 2 mg tablet 3 mg PO QDAY Qty: 100 3RF Protocol: Dose Management Condition: Saturday (Week One) Dose/Route: 3 mg Instruction: 1.5 x 2 mg tablets Condition: Saturday Dose/Route: 4 mg Instruction: 2 x 2 mg tablets Condition: Saturday Dose/Route: 3 mg Instruction: 1.5 x 2 mg tablets Condition: Saturday Dose/Route: 0 mg Instruction: 0 tablets Condition: Dose/Route: 0 mg Instruction: 0 tablets Condition: Saturday Dose/Route: 3 mg Instruction: 1.5 x 2 mg tablets Condition: Saturday Dose/Route: 3 mg Instruction: 1.5 x 2 mg tablets Condition: Saturday (Week Two) Dose/Route: 3 mg Instruction: 1.5 x 2 mg tablets Condition: Saturday Dose/Route: 4 mg Instruction: 2 x 2 mg tablets Condition: Saturday Dose/Route: 3 mg Instruction: 1.5 x 2 mg tablets Condition: Saturday Dose/Route: 3 mg Instruction: 1.5 x 2 mg tablets Condition: Dose/Route: 4 mg Instruction: 2 x 2 mg tablets Condition: Saturday Dose/Route: 3 mg Instruction: 1.5 x 2 mg tablets Condition: Saturday Dose/Route: 3 mg Instruction: 1.5 x 2 mg tablets Protocol Text: Adjustment Start Date: Saturday04/28/24 INR Value: 4.81 INR Date: 04/28/24 Recheck Date: 05/12/24 metformin 1,000 mg tablet 1,000 mg PO BID Qty: 180 0RF alendronate 70 mg tablet 70 mg PO QWEEK Qty: 12 3RF amiodarone 200 mg tablet 200 mg PO DAILY Qty: 30 5RF Follow Up/Referrals: Brian Gaary MD [Primary Care Provider] - Stand Alone Forms: [facility] Info Instructions
[2024-05-21 13:10] LABS: Creatinine, Point-of-Care* 0.7 mg/dl (0.6-1.3)
[2024-05-21 13:11] LABS: Basophils Absolute Auto 0.06 K/uL (0.00-0.30); Eosinophils Absolute Auto 0.24 K/uL (0.00-0.50); Hematocrit 36.8 % (33.0-51.0); Hemoglobin* 11.5 gm/dL (12.0-16.0); Immature Granulocytes Abs Auto 0.07 K/uL (0.00-0.30); Immature Granulocytes Pct Auto 1.2 %; Lymphocytes Percent Auto 17.7 % (20-44); Mean Corpuscular HGB Conc 31 gm/dL (32-36); Mean Corpuscular Hemoglobin 27 pg (26-34); Mean Corpuscular Volume 86 fL (80-100); Monocytes Percent Auto 10.1 % (0.0-11.0); Neutrophils Absolute Auto 3.91 K/uL (1.7-7.0); Platelet Count* 277 K/uL (140-440); RDW Coefficient of Variation % 17.5 % (11.5-15.5); Red Blood Count 4.28 m/uL (4.00-5.20); White Blood Count* 5.93 K/uL (4.50-11.00)
--- OUTSIDE RECORDS SUMMARY | 2024-05-21 13:11 | XMS_ITS | Encounter Summary ---
Author Organization [facility] Address [address] [place] [address] Care Team Providers Care Recreation Teacher Name Role Phone None Reported, Pcp Primary Care Provider Unavail able Reason for Referral * Outpatient (Routine) - Authorized Specialty Diagnoses / Procedures Referred By Godwinac t Referred To Contact Diagnoses Replacement Aortic Valve Tissue Coronary Arterial Bypass Graft Status Post Personal History Procedures Cardiac Rehab Program [place] [address] Phone: tel: fax: [facility] Region Referral ID Status Reason Start Date Expiration Date V isits Requested Visits Authorized [id number] Authorized 02/20/2024 02/19/2025 45 45 AR BASTER Reason for Visit * Outpatient (Routine) - Authorized Specialty Diagnoses / Procedures Referred By Jordan t Referred To Contact Diagnoses Replacement Aortic Valve Tissue Coronary Arterial Bypass Graft Status Post Personal History Procedures Cardiac Rehab Program [place] [address] Phone: tel: fax: [facility] Region Referral ID Status Reason Start Date Expiration Date V isits Requested Visits Authorized [id number] Authorized 02/20/2024 02/19/2025 45 45 Encounter Details Date Type Department Care Team (Latest Contact Info) Description 04/13/2024 1:41 PM COLLAR BASTER - 04/13/2024 11:59 PM COLLAR BASTER Hospital Encounter Department of Cardiac Rehabilitation in [place], [place] [address] [place] [phone] Keon Peace M.D. [address] [place] [phone] Replacement Aortic Valve Tissue; Coronary Arterial Bypass Graft Status Post Personal History Discharge Disposition: Home or Self Care Social History Tobacco Use Types Packs/Day Years Used Date Smoking Tobacco: Never Dental Answer Date Recorded Dental: Regular Dentist Unknown 12/04/19 24 Comments Unknown Sex and Gender Information Value Date Recorded Sex Assigned at Not on file Legal Sex Female 4:49 PM COLLAR BASTER Gender Identity Not on file Sexual Orientation Not on file documented as of this encounter Plan of Treatment Upcoming Encounters Date Type Department Care Team (Late st Contact Info) Description 05/22/2024 2:00 PM COLLAR BASTER Appointment Department of Cardiac Rehabilitation in [place] [address] [place] [phone] Keon Peace M.D. [address] [place] [phone] 05/25/2024 2:00 PM COLLAR BASTER Appointment Department of Cardiac Rehabilitation in [place] [address] [place] [phone] Keon Peace M.D. [address] [place] [phone] 05/27/2024 2:00 PM COLLAR BASTER Appointment Department of Cardiac Rehabilitation in [place] [address] [place] [phone] Keon Peace M.D. [address] [place] [phone] 05/29/2024 2:00 PM COLLAR BASTER Appointment Department of Cardiac Rehabilitation in [place] [address] [place] [phone] Keon Peace M.D. [address] [place], [place] [address], [place] [phone] 06/01/2024 2:00 PM COLLAR BASTER Appointment Department of Cardiac Rehabilitation in [place], [place] [address] [facility] [phone] Keon Peace M.D. [address] [place] [phone] 06/03/2024 2:00 PM COLLAR BASTER Appointment Department of Cardiac Rehabilitation in [place] [address] [facility] [place] [phone] Keon Peace M.D. [address] [place] [address], [place] [phone] 06/05/2024 2:00 PM COLLAR BASTER Appointment Department of Cardiac Rehabilitation in [place] [address] [facility] [phone] Keon Peace M.D. [address] [place] [address], [place] [phone] 06/08/2024 2:00 PM CDT Appointment Department of Cardiac Rehabilitation in [place] [address] [facility] [phone] Keon Peace M.D. [address] [place] [address], [place] [phone] 06/10/2024 2:00 PM CDT Appointment Department of Cardiac Rehabilitation in [place] [address] [facility] [phone] Keon Peace M.D. [address] [place] [phone] 06/12/2024 2:00 PM CDT Appointment Department of Cardiac Rehabilitation in [place], [place] [address] [place] [phone] Keon Peace M.D. [address] [place] [phone] Scheduled Orders Name Type Priority Associated Diagnoses Orde r Schedule Cardiac Rehab Program Card Rehab Routine Replacement Aortic Valve Tissue Coronary Arterial Bypass Graft Status Post Personal History Once for 1 Occurrences starting 04/13/2024 until 04/13/2024 documented as of this encounter Visit Diagnoses Diagnosis Replacement Aortic Valve Tissue Coronary Arterial Bypass Graft Status Post Personal History documented in this encounter Care Teams Recreation Teacher Relationship Specialty Start Date End Date None Reported, Pcp PCP - General Family Medicine 02/28/24 documented as of this encounter
--- OUTSIDE RECORDS SUMMARY | 2024-05-21 13:11 | XMS_ITS | Encounter Summary ---
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 [address] Phone: tel: fax: [facility] Region Referral ID Status Reason Start Date Expiration Date V isits Requested Visits Authorized [id number] Authorized 02/20/2024 02/19/2025 45 45 Encounter Details Date Type Department Care Team (Latest Contact Info) Description 04/08/2024 1:43 PM CONFERENCE PLANNING MANAGER - 04/08/2024 11:59 PM CONFERENCE PLANNING MANAGER Hospital Encounter Department of Cardiac Rehabilitation in [place], [place] [address] [place] [phone] Keon Peace M.D. [address] [place] [address] Replacement Aortic Valve Tissue; Coronary Arterial Bypass Graft Status Post Personal History Discharge Disposition: Home or Self Care Social History Tobacco Use Types Packs/Day Years Used Date Smoking Tobacco: Never Dental Answer Date Recorded Dental: Regular Dentist Unknown 12/04/19 24 Comments Unknown Sex and Gender Information Value Date Recorded Sex Assigned at Not on file Legal Sex Female 4:49 PM CONFERENCE PLANNING MANAGER Gender Identity Not on file Sexual Orientation Not on file documented as of this encounter Plan of Treatment Upcoming Encounters Date Type Department Care Team (Late st Contact Info) Description 05/22/2024 2:00 PM CONFERENCE PLANNING MANAGER Appointment Department of Cardiac Rehabilitation in [place] [address] [place] [address] Keon Peace M.D. [address] [place] [phone] 05/25/2024 2:00 PM CONFERENCE PLANNING MANAGER Appointment Department of Cardiac Rehabilitation in [place] [address] [place] [address] Keon Peace M.D. [address] [place] [phone] 05/27/2024 2:00 PM CONFERENCE PLANNING MANAGER Appointment Department of Cardiac Rehabilitation in [place] [address] [place] [address] Keon Peace M.D. [address] [place] [address] 05/29/2024 2:00 PM CONFERENCE PLANNING MANAGER Appointment Department of Cardiac Rehabilitation in [place] [address] [place] [address] Keon Peace M.D. [address] [place], [place] [address], [place] [address] 06/01/2024 2:00 PM CONFERENCE PLANNING MANAGER Appointment Department of Cardiac Rehabilitation in [place], [place] [address] [place] [address] Keon Peace M.D. [address] [place] [address] 06/03/2024 2:00 PM CONFERENCE PLANNING MANAGER Appointment Department of Cardiac Rehabilitation in [place] [address] [place] [address] Keon Peace M.D. [address] [place] [address], [place] [address] 06/05/2024 2:00 PM CONFERENCE PLANNING MANAGER Appointment Department of Cardiac Rehabilitation in [place] [address] [place] [address] Keon Peace M.D. [address] [place] [address], [place] [address] 06/08/2024 2:00 PM CDT Appointment Department of Cardiac Rehabilitation in [place] [address] [place] [address] Keon Peace M.D. [address] [place] [address], [place] [address] 06/10/2024 2:00 PM CDT Appointment Department of Cardiac Rehabilitation in [place] [address] [place] [address] Keon Peace M.D. [address] [place] [address] 06/12/2024 2:00 PM CDT Appointment Department of Cardiac Rehabilitation in [place], [place] [address] [place] [phone] Keon Peace M.D. 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
--- OUTSIDE RECORDS SUMMARY | 2024-05-21 13:11 | XMS_ITS | Encounter Summary ---
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 [address] Phone: tel: fax: [facility] Region Referral ID Status Reason Start Date Expiration Date V isits Requested Visits Authorized [id number] Authorized 02/20/2024 02/19/2025 45 45 Encounter Details Date Type Department Care Team (Latest Contact Info) Description 04/06/2024 1:46 PM BASE LOADER - 04/06/2024 11:59 PM BASE LOADER Hospital Encounter Department of Cardiac Rehabilitation in [place], [place] [address] [place] [phone] Keon Peace M.D. [address] [place] [phone] Replacement Aortic Valve Tissue; Coronary Arterial Bypass Graft Status Post Personal History Discharge Disposition: Home or Self Care Social History Tobacco Use Types Packs/Day Years Used Date Smoking Tobacco: Never Dental Answer Date Recorded Dental: Regular Dentist Unknown 12/04/19 24 Comments Unknown Sex and Gender Information Value Date Recorded Sex Assigned at Not on file Legal Sex Female 4:49 PM BASE LOADER Gender Identity Not on file Sexual Orientation Not on file documented as of this encounter Plan of Treatment Upcoming Encounters Date Type Department Care Team (Late st Contact Info) Description 05/22/2024 2:00 PM BASE LOADER Appointment Department of Cardiac Rehabilitation in [place] [address] [place] [address] Keon Peace M.D. [address] [place] [phone] 05/25/2024 2:00 PM BASE LOADER Appointment Department of Cardiac Rehabilitation in [place] [address] [place] [address] Keon Peace M.D. [address] [place] [address] 05/27/2024 2:00 PM BASE LOADER Appointment Department of Cardiac Rehabilitation in [place] [address] [place] [address] Keon Peace M.D. [address] [place] [address] 05/29/2024 2:00 PM BASE LOADER Appointment Department of Cardiac Rehabilitation in [place] [address] [place] [address] Keon Peace M.D. [address] [place], [place] [address], [place] [address] 06/01/2024 2:00 PM BASE LOADER Appointment Department of Cardiac Rehabilitation in [place], [place] [address] [place] [address] Keon Peace M.D. [address] [facility] [place] [address] 06/03/2024 2:00 PM BASE LOADER Appointment Department of Cardiac Rehabilitation in [place] [address] [place] [address] Keon Peace M.D. [address] [place] [address], [place] [address] 06/05/2024 2:00 PM BASE LOADER Appointment Department of Cardiac Rehabilitation in [place] [address] [place] [address] Keon Peace M.D. [address] [place] [address], [place] [address] 06/08/2024 2:00 PM CDT Appointment Department of Cardiac Rehabilitation in [place] [address] [place] [address] Keon Peace M.D. [address] [place] [address], [place] [address] 06/10/2024 2:00 PM CDT Appointment Department of Cardiac Rehabilitation in [place] [address] [place] [address] Keon Peace M.D. [address] [facility] [place] [address] 06/12/2024 2:00 PM CDT Appointment Department of Cardiac Rehabilitation in [place], [place] [address] [place] [phone] Keon Peace M.D. 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
--- OUTSIDE RECORDS SUMMARY | 2024-05-21 13:11 | XMS_ITS | Encounter Summary ---
Author Organization [facility] Address [address] [place] [address] Care Team Providers Care Exterminator Name Role Phone None Reported, Pcp Primary Care Provider Unavail able Encounter Details Date Type Department Care Team (Latest Contact Info) Description 05/14/2024 Clinical Communication Department of Cardiac Rehabilitation in [place], [place] [address] [place] [address] Jyoti King C.Ph.T. Social History Tobacco Use Types Packs/Day Years Used Date Smoking Tobacco: Never Dental Answer Date Recorded Dental: Regular Dentist Unknown 12/04/19 24 Comments Unknown Sex and Gender Information Value Date Recorded Sex Assigned at Not on file Legal Sex Female 4:49 PM METAL SPRAYER PRODUCTION Gender Identity Not on file Sexual Orientation Not on file documented as of this encounter Plan of Treatment Upcoming Encounters Date Type Department Care Team (Late st Contact Info) Description 05/22/2024 2:00 PM METAL SPRAYER PRODUCTION Appointment Department of Cardiac Rehabilitation in [place] [address] [place] [phone] Keon Peace M.D. [address] [place] [address] 05/25/2024 2:00 PM METAL SPRAYER PRODUCTION Appointment Department of Cardiac Rehabilitation in [place], [place] [address] [place] [phone] Keon Peace M.D. [address] [place] [address] 05/27/2024 2:00 PM METAL SPRAYER PRODUCTION Appointment Department of Cardiac Rehabilitation in [place], [place] [address] [place] [phone] Keon Peace M.D. [address] [place] [address] 05/29/2024 2:00 PM METAL SPRAYER PRODUCTION Appointment Department of Cardiac Rehabilitation in [place] [address] [place] [address] Keon Peace M.D. [address] [place] [address] 06/01/2024 2:00 PM METAL SPRAYER PRODUCTION Appointment Department of Cardiac Rehabilitation in [place] [address] [place] [address] Keon Peace M.D. [address] [place] [address] 06/03/2024 2:00 PM METAL SPRAYER PRODUCTION Appointment Department of Cardiac Rehabilitation in [place] [address] [place] [address] Keon Peace M.D. [address] [place] [address] 06/05/2024 2:00 PM METAL SPRAYER PRODUCTION Appointment Department of Cardiac Rehabilitation in [place] [address] [place] [address] Keon Peace M.D. [address] [place] [address], [place] [address] 06/08/2024 2:00 PM CDT Appointment Department of Cardiac Rehabilitation in [place] [address] [place] [address] Keon Peace M.D. [address] [place] [address] 06/10/2024 2:00 PM CDT Appointment Department of Cardiac Rehabilitation in [place], [place] [address] [place] [place] [address] Keon Peace M.D. [address] [place] [address] 06/12/2024 2:00 PM CDT Appointment Department of Cardiac Rehabilitation in [place], [place] [address] [place] [place] [address] Keon Peace M.D. [address] [place] [address] documented as of this encounter Visit Diagnoses Not on filedocumented in this encounter Care Teams Exterminator Relationship Specialty Start Date End Date None Reported, Pcp PCP - General Family Medicine 02/28/24 documented as of this encounter
--- OUTSIDE RECORDS SUMMARY | 2024-05-21 13:11 | XMS_ITS | Encounter Summary ---
Author Organization 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 [address] Phone: tel: fax: [facility] Region Referral ID Status Reason Start Date Expiration Date V isits Requested Visits Authorized [id number] Authorized 02/20/2024 02/19/2025 45 45 Encounter Details Date Type Department Care Team (Latest Contact Info) Description 04/15/2024 1:53 PM HAZARDOUS WASTE MANAGEMENT SPECIALIST - 04/15/2024 11:59 PM HAZARDOUS WASTE MANAGEMENT SPECIALIST Hospital Encounter Department of Cardiac Rehabilitation in [place], [place] [address] [place] [phone] Keon Peace M.D. [address] [place] [address] Replacement Aortic Valve Tissue; Coronary Arterial Bypass Graft Status Post Personal History Discharge Disposition: Home or Self Care Social History Tobacco Use Types Packs/Day Years Used Date Smoking Tobacco: Never Dental Answer Date Recorded Dental: Regular Dentist Unknown 12/04/19 24 Comments Unknown Sex and Gender Information Value Date Recorded Sex Assigned at Not on file Legal Sex Female 4:49 PM HAZARDOUS WASTE MANAGEMENT SPECIALIST Gender Identity Not on file Sexual Orientation Not on file documented as of this encounter Plan of Treatment Upcoming Encounters Date Type Department Care Team (Late st Contact Info) Description 05/22/2024 2:00 PM HAZARDOUS WASTE MANAGEMENT SPECIALIST Appointment Department of Cardiac Rehabilitation in [place] [address] [place] [address] Keon Peace M.D. [address] [place] [address] 05/25/2024 2:00 PM HAZARDOUS WASTE MANAGEMENT SPECIALIST Appointment Department of Cardiac Rehabilitation in [place] [address] [place] [address] Keon Peace M.D. [address] [place] [address] 05/27/2024 2:00 PM HAZARDOUS WASTE MANAGEMENT SPECIALIST Appointment Department of Cardiac Rehabilitation in [place] [address] [place] [address] Keon Peace M.D. [address] [place] [address] 05/29/2024 2:00 PM HAZARDOUS WASTE MANAGEMENT SPECIALIST Appointment Department of Cardiac Rehabilitation in [place] [address] [place] [address] Keon Peace M.D. [address] [place], [place] [address], [place] [address] 06/01/2024 2:00 PM HAZARDOUS WASTE MANAGEMENT SPECIALIST Appointment Department of Cardiac Rehabilitation in [place], [place] [address] [place] [address] Keno Peace M.D. [address] [facility] [place] [address] 06/03/2024 2:00 PM HAZARDOUS WASTE MANAGEMENT SPECIALIST Appointment Department of Cardiac Rehabilitation in [place] [address] [place] [address] Keon Peace M.D. [address] [place] [address], [place] [address] 06/05/2024 2:00 PM HAZARDOUS WASTE MANAGEMENT SPECIALIST Appointment Department of Cardiac Rehabilitation in [place] [address] [place] [address] Keon Peace M.D. [address] [place] [address], [place] [address] 06/08/2024 2:00 PM CDT Appointment Department of Cardiac Rehabilitation in [place] [address] [place] [address] Keon Peace M.D. [address] [place] [address], [place] [address] 06/10/2024 2:00 PM CDT Appointment Department of Cardiac Rehabilitation in [place] [address] [place] [address] Keon Peace M.D. [address] [facility] [place] [address] 06/12/2024 2:00 PM CDT Appointment Department of Cardiac Rehabilitation in [place], [place] [address] [place] [address] Keon Peace M.D. 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
--- OUTSIDE RECORDS SUMMARY | 2024-05-21 13:11 | XMS_ITS | Clinical Summary ---
Author Organization [facility] Address [address] [place] [address] Care Team Providers Care Mass Spectrometry Specialist Name Role Phone Brian Garay MD Primary Care Provider [phone] [facility] Unavailable [phone] Allergies Active Allergy Reactions Criticality Noted Date [...] type, unspecified whether angina present, unspecified whether [place] or transplanted heart Take 1 Tablet (10 [...] type, unspecified whether angina present, unspecified whether [place] or transplanted heart,S/P CABG x 3 Take 1 Tablet (20 mg) by mouth once daily. 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 Overview (01/02/2024): 01/01/2024 s/p Coronary artery bypass grafting x3 (LUGO -> LAD, SVG -> PDA, SVG - > OM1) Shock circulatory 01/02/2024 Severe aortic stenosis 2023 COLLAZO (dyspnea on exertion) 2023 Moderate mitral regurgitation 2023 Coronary atherosclerosis of unspecified type of vessel, [place] or graft 06/15/2005 Overview (06/15/2005): s/p NARESH [...] on file Legal Sex Female 6:12 AM MOLD OPERATOR Gender Identity Not on file Sexual Orientation Not on file Obstetrics History Last Filed Vital Signs Vital Sign Reading Time Taken Comments Blood Pressure 170/71 02/12/2024 2:13 PM MOLD OPERATOR Pulse 80 02/12/2024 2:13 PM MOLD OPERATOR Temperature 36.1 C (97 F) 02/10/2024 8:19 AM MOLD OPERATOR Respiratory Rate 16 02/10/2024 8:19 AM MOLD OPERATOR Oxygen Saturation 97% 02/12/2024 2:13 PM MOLD OPERATOR Inhaled Oxygen Concentration - - Weight 64.4 kg (142 lb) 02/12/2024 2:13 PM MOLD OPERATOR Height 162.6 cm (5' 4) 02/12/2024 2:13 PM MOLD OPERATOR Body Mass Index 24.37 02/12/2024 2:13 PM MOLD OPERATOR Plan of Treatment Health Maintenance Due Date [...] 02/20/2022, 08/28/2011 Medical Devices Implanted Type Area Account Collector Device Identifier Shelf Expiration Date Model / Serial / Lot Valve Aortic 19mm Inspirus Resilia Tissue - [id number] Implanted:Qty: 1 on 01/01/2024 by Dahiana Ventura MD at [facility] N/A: Aortic Valve [employer] Bianca [id number] 11/12/2026 [id number] / [id number] / Description:No rinse per man ufacturer's instructions. [...] 9:05 AM 06/14/2005 11:46 AM Care Teams Mass Spectrometry Specialist Relationship Specialty Start Date End Date Brian Garay MD PCP - General 08/19/[address] [place] [address] 01/11/24
--- OUTSIDE RECORDS SUMMARY | 2024-05-21 13:11 | XMS_ITS | Encounter Summary ---
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 [address] Phone: tel: fax: [facility] Region Referral ID Status Reason Start Date Expiration Date V isits Requested Visits Authorized [id number] Authorized 02/20/2024 02/19/2025 45 45 Encounter Details Date Type Department Care Team (Latest Contact Info) Description 04/10/2024 1:44 PM CONVEYOR BELT INSTALLER - 04/10/2024 11:59 PM CONVEYOR BELT INSTALLER Hospital Encounter Department of Cardiac Rehabilitation in [place], [place] [address] [place] [phone] Keon Peace M.D. [address] [place] [phone] Replacement Aortic Valve Tissue; Coronary Arterial Bypass Graft Status Post Personal History Discharge Disposition: Home or Self Care Social History Tobacco Use Types Packs/Day Years Used Date Smoking Tobacco: Never Dental Answer Date Recorded Dental: Regular Dentist Unknown 12/04/19 24 Comments Unknown Sex and Gender Information Value Date Recorded Sex Assigned at Not on file Legal Sex Female 4:49 PM CONVEYOR BELT INSTALLER Gender Identity Not on file Sexual Orientation Not on file documented as of this encounter Plan of Treatment Upcoming Encounters Date Type Department Care Team (Late st Contact Info) Description 05/22/2024 2:00 PM CONVEYOR BELT INSTALLER Appointment Department of Cardiac Rehabilitation in [place] [address] [place] [address] Keon Peace M.D. [address] [place] [phone] 05/25/2024 2:00 PM CONVEYOR BELT INSTALLER Appointment Department of Cardiac Rehabilitation in [place] [address] [place] [address] Keon Peace M.D. [address] [place] [phone] 05/27/2024 2:00 PM CONVEYOR BELT INSTALLER Appointment Department of Cardiac Rehabilitation in [place] [address] [place] [address] Keon Peace M.D. [address] [place] [address] 05/29/2024 2:00 PM CONVEYOR BELT INSTALLER Appointment Department of Cardiac Rehabilitation in [place] [address] [place] [address] Keon Peace M.D. [address] [place], [place] [address], [place] [address] 06/01/2024 2:00 PM CONVEYOR BELT INSTALLER Appointment Department of Cardiac Rehabilitation in [place], [place] [address] [place] [address] Keon Peace M.D. [address] [facility] [address] 06/03/2024 2:00 PM CONVEYOR BELT INSTALLER Appointment Department of Cardiac Rehabilitation in [place] [address] [place] [address] Keon Peace M.D. [address] [place] [address], [place] [address] 06/05/2024 2:00 PM CONVEYOR BELT INSTALLER Appointment Department of Cardiac Rehabilitation in [place] [address] [place] [address] Keon Peace M.D. [address] [place] [address], [place] [address] 06/08/2024 2:00 PM CDT Appointment Department of Cardiac Rehabilitation in [place] [address] [place] [address] Keon Peace M.D. [address] [place] [address], [place] [address] 06/10/2024 2:00 PM CDT Appointment Department of Cardiac Rehabilitation in [place] [address] [place] [address] Keon Peace M.D. [address] [facility] [address] 06/12/2024 2:00 PM CDT Appointment Department of Cardiac Rehabilitation in [place], [place] [address] [place] [phone] Keon Peace M.D. 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
--- OUTSIDE RECORDS SUMMARY | 2024-05-21 13:11 | XMS_ITS | Encounter Summary ---
Author Organization [facility] Address [address] [place] [address] Care Team Providers Care Aerodynamics Teacher Name Role Phone None Reported, Pcp Primary Care Provider Unavail able Encounter Details Date Type Department Care Team (Late st Contact Info) Description 05/14/2024 Documentation Department of Cardiac Rehabilitation in [address] [address] Jyoti King C.Ph.T. Social History Tobacco Use Types Packs/Day Years Used Date Smoking Tobacco: Never Dental Answer Date Recorded Dental: Regular Dentist Unknown 12/04/19 24 Comments Unknown Sex and Gender Information Value Date Recorded Sex Assigned at Not on file Legal Sex Female 4:49 PM PHARMACY TECHNICIAN INSTRUCTOR Gender Identity Not on file Sexual Orientation Not on file documented as of this encounter Plan of Treatment Upcoming Encounters Date Type Department Care Team (Late st Contact Info) Description 05/22/2024 2:00 PM PHARMACY TECHNICIAN INSTRUCTOR Appointment Department of Cardiac Rehabilitation in [place] [address] [place] [phone] Keon Peace M.D. [address] [place] [phone] 05/25/2024 2:00 PM PHARMACY TECHNICIAN INSTRUCTOR Appointment Department of Cardiac Rehabilitation in [place] [address] [place] [phone] Keon Peace M.D. [address] [place] [phone] 05/27/2024 2:00 PM PHARMACY TECHNICIAN INSTRUCTOR Appointment Department of Cardiac Rehabilitation in [place], [place] [address] [place] [address] Keon Peace M.D. [address] [facility] [address] 05/29/2024 2:00 PM PHARMACY TECHNICIAN INSTRUCTOR Appointment Department of Cardiac Rehabilitation in [place] [address] [place] [phone] Keon Peace M.D. [address] [facility] [place] [address] 06/01/2024 2:00 PM PHARMACY TECHNICIAN INSTRUCTOR Appointment Department of Cardiac Rehabilitation in [place] [address] [place] [phone] Keon Peace M.D. [address] [place] [address] 06/03/2024 2:00 PM PHARMACY TECHNICIAN INSTRUCTOR Appointment Department of Cardiac Rehabilitation in [place] [address] [place] [phone] Keon Peace M.D. [address] [place] [address] 06/05/2024 2:00 PM PHARMACY TECHNICIAN INSTRUCTOR Appointment Department of Cardiac Rehabilitation in [place] [address] [place] [address] Keon Peace M.D. [address] [place] [address], [place] [address] 06/08/2024 2:00 PM CDT Appointment Department of Cardiac Rehabilitation in [place] [address] [place] [address] Keon Peace M.D. [address] [place] [facility] [place] [address] 06/10/2024 2:00 PM CDT Appointment Department of Cardiac Rehabilitation in [place], [place] [address] [facility] [address] Keon Peace M.D. [address] [place] [address] 06/12/2024 2:00 PM CDT Appointment Department of Cardiac Rehabilitation in [place], [place] [address] [facility] [address] Keon Peace M.D. [address] [place] [address] documented as of this encounter Visit Diagnoses Not on filedocumented in this encounter Care Teams Aerodynamics Teacher Relationship Specialty Start Date End Date None Reported, Pcp PCP - General Family Medicine 02/28/24 documented as of this encounter
--- OUTSIDE RECORDS SUMMARY | 2024-05-21 13:11 | XMS_ITS | Encounter Summary ---
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 [address] Phone: tel: fax: [facility] Region Referral ID Status Reason Start Date Expiration Date V isits Requested Visits Authorized [id number] Authorized 02/20/2024 02/19/2025 45 45 Encounter Details Date Type Department Care Team (Latest Contact Info) Description 04/27/2024 1:56 PM NEWS WRITER - 04/27/2024 11:59 PM NEWS WRITER Hospital Encounter Department of Cardiac Rehabilitation in [place], [place] [address] [place] [phone] Keon Peace M.D. [address] [place] [phone] Replacement Aortic Valve Tissue; Coronary Arterial Bypass Graft Status Post Personal History Discharge Disposition: Home or Self Care Social History Tobacco Use Types Packs/Day Years Used Date Smoking Tobacco: Never Dental Answer Date Recorded Dental: Regular Dentist Unknown 12/04/19 24 Comments Unknown Sex and Gender Information Value Date Recorded Sex Assigned at Not on file Legal Sex Female 4:49 PM NEWS WRITER Gender Identity Not on file Sexual Orientation Not on file documented as of this encounter Plan of Treatment Upcoming Encounters Date Type Department Care Team (Late st Contact Info) Description 05/22/2024 2:00 PM NEWS WRITER Appointment Department of Cardiac Rehabilitation in [place] [address] [place] [address] Keon Peace M.D. [address] [place] [phone] 05/25/2024 2:00 PM NEWS WRITER Appointment Department of Cardiac Rehabilitation in [place] [address] [place] [address] Keon Peace M.D. [address] [place] [address] 05/27/2024 2:00 PM NEWS WRITER Appointment Department of Cardiac Rehabilitation in [place] [address] [place] [address] Keon Peace M.D. [address] [place] [address] 05/29/2024 2:00 PM NEWS WRITER Appointment Department of Cardiac Rehabilitation in [place] [address] [place] [address] Keon Peace M.D. [address] [place], [place] [address], [place] [address] 06/01/2024 2:00 PM NEWS WRITER Appointment Department of Cardiac Rehabilitation in [place], [place] [address] [place] [address] Keon Peace M.D. [address] [place] [address] 06/03/2024 2:00 PM NEWS WRITER Appointment Department of Cardiac Rehabilitation in [place] [address] [place] [address] Keon Peace M.D. [address] [place] [address], [place] [address] 06/05/2024 2:00 PM NEWS WRITER Appointment Department of Cardiac Rehabilitation in [place] [address] [place] [address] Keon Peace M.D. [address] [place] [address], [place] [address] 06/08/2024 2:00 PM CDT Appointment Department of Cardiac Rehabilitation in [place] [address] [place] [address] Keon Peace M.D. [address] [place] [address], [place] [address] 06/10/2024 2:00 PM CDT Appointment Department of Cardiac Rehabilitation in [place] [address] [place] [address] Keon Peace M.D. [address] [place] [address] 06/12/2024 2:00 PM CDT Appointment Department of Cardiac Rehabilitation in [place], [place] [address] [place] [phone] Keon Peace M.D. 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
--- OUTSIDE RECORDS SUMMARY | 2024-05-21 13:11 | XMS_ITS | Encounter Summary ---
Author Organization [facility] Address [address] [place] [address] Care Team Providers Care Design Maker Name Role Phone None Reported, Pcp Primary Care Provider Unavail able Encounter Details Date Type Department Care Team (Latest Contact Info) Description 05/14/2024 Plan of Care Documentation Department of Cardiac Rehabilitation in [place] [address] [place] [address] Social History Tobacco Use Types Packs/Day Years Used Date Smoking Tobacco: Never Dental Answer Date Recorded Dental: Regular Dentist Unknown 12/04/19 24 Comments Unknown Sex and Gender Information Value Date Recorded Sex Assigned at Not on file Legal Sex Female 4:49 PM FORENSIC PSYCHIATRIST Gender Identity Not on file Sexual Orientation Not on file documented as of this encounter Miscellaneous Notes * Specialty Plan of Care - Jyoti King C.Ph.T. - 05/14/2024 10:00 AM CST Images from the original note were not included. Ms. Cody (88 y.o., : 1935, ) was referred to the [facility] Cardiac Rehab Program on 02/10/2024, by Lakisha and has completed 28 sessions out of the 36 prescribed. PCP: Pcp None Reported Supervisor Records Change: Lakisha Torrez 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 Patient has attended 11 sessions of cardiac rehab and feels it has been going well. Patient had Aortic valve replace ment with Kidyfhkv13 mm tissue valve, Coronary artery bypass grafting [...] % 55 % 55 % 55 % [place] [employer] Functional Class I - Normal [...] essions. Exercise Education Documentation Exercise Program Guidelines [id number], taught by Gosia Rivas R.N. at 03/13/2024 10:24 AM. Learner: Patient Readiness: Eager Method: Explanation Response: Able to Teach Back Move More and Sit Less the NEAT Way [id number], taught by Gosia Rivas R.N. at 04/22/2024 1:59 PM. Learner: Patient Readiness: Eager Method: Explanation Response: Able to Teach Back Benefits and Barriers Of Exercise [id number], taught by Gosia Rivas R.NJacklyn at 04/20/2024 1:52 PM. Learner: Patient Readiness: Eager Method: Explanation Response: Able to Teach Back Interval Training [id number], taught by Skye Juarez at 03/23/2024 3:09 PM. Learner: Patient Readiness: Eager Method: Explanation, Handout, Class / Group Response: Able to Teach Back Stretches [id number], taught by Skye Juarez at 03/18/2024 3:09 [...] Nutrition Guidelines for Cholesterol, Triglycerides and Sodium [id number], taught by Skye Juarez at 04/03/2024 3:01 PM. Learner: Patient Readiness: Eager Method: Explanation, Handout, Class / Group Response: Able to Teach Back How to Read a Food Label [id number], taught by Gosia Rivas R.N. at 03/30/2024 2:47 PM. Learner: Patient Readiness: Eager Method: Explanation Response: Able to Teach Back Mediterranean Diet Pyramid: Guidelines for Adults ES7199-25, taught by Skye Juarez at 02/26/2024 3:06 PM. Learner: Patient Readiness: Eager Method: Explanation, Handout, Class / Group Response: Able to Teach Back Mediterranean Diet FI0484, taught by Skye Juarez at 02/26/2024 3:06 [...] upcoming sessions. Psychosocial Education Documentation Relaxation Techniques [id number], taught by Skye Juarez at 04/10/2024 3:02 PM. Learner: Patient Readiness: Eager Method: Explanation, Handout, Class / Group Response: Able to Teach Back Stress Reducers [id number], taught by Skye Juarez at 04/08/2024 3:04 PM. Learner: Patient Readiness: Eager Method: Explanation, Handout, Class / Group Response: Able to Teach Back Stress Management IV7120, taught by Gosia Rivas R.N. at 04/08/2024 1:47 PM. Learner: Patient Readiness: Eager Method: Explanation Response: Able to Teach Back Knowing About Depression Finding Your Way GH6414, taught by Skye Juarez at 04/06/2024 3:04 PM. Learner: Patient Readiness: Eager Method: Explanation, Handout, Class / Group Response: Able to Teach Back My Road to Better Health Sleep MY9792-19, taught by Gosia Rivas R.N. at 03/04/2024 [...] High Blood Pressure Also Known as Hypertension SE7704, taught by Gosia Rivas R.N. at 04/15/2024 2:02 PM. Learner: Patient Readiness: Eager Method: Explanation Response: Able to Teach Back Risk Factors For Heart Disease QP4626-67, taught by Skye Juarez at 03/06/2024 2:47 [...] Medication Compliance Education Documentation Managing Your Medications [id number], taught by Skye Juarez at 04/17/2024 2:37 PM. Learner: Patient Readiness: Eager Method: Explanation, Handout, Class / Group Response: Able to Teach Back Medications were reviewed every visit. Patient expresses understanding and acceptance of instructions. Avi MabryPh.T. 0:00 AM FORENSIC PSYCHIATRIST [1] Social History Tobacco Use Smoking Status Never Smokeless Tobacco Not on file NSIC PSYCHIATRIST documented in this encounter Plan of Treatment Upcoming Encounters Date Type Department Care Team (Late st Contact Info) Description 05/22/2024 2:00 PM FORENSIC PSYCHIATRIST Appointment Department of Cardiac Rehabilitation in [place] [address] [place] [address] Keon Peace M.D. [address] [place] [address] 05/25/2024 2:00 PM FORENSIC PSYCHIATRIST Appointment Department of Cardiac Rehabilitation in [place] [address] [place] [address] Keon Peace M.D. [address] [place] [address] 05/27/2024 2:00 PM FORENSIC PSYCHIATRIST Appointment Department of Cardiac Rehabilitation in [place] [address] [place] [address] Keon Peace M.D. [address] [place] [address] 05/29/2024 2:00 PM FORENSIC PSYCHIATRIST Appointment Department of Cardiac Rehabilitation in [place] [address] [place] [address] Keon Peace M.D. [address] [place] [address] 06/01/2024 2:00 PM FORENSIC PSYCHIATRIST Appointment Department of Cardiac Rehabilitation in [place] [address] [place] [address] Keon Peace M.D. [address] [facility] [place] [address] 06/03/2024 2:00 PM FORENSIC PSYCHIATRIST Appointment Department of Cardiac Rehabilitation in [place] [address] [place] [address] Keon Peace M.D. [address] [facility] [place] [address] 06/05/2024 2:00 PM FORENSIC PSYCHIATRIST Appointment Department of Cardiac Rehabilitation in [place] [address] [place] [address] Keon Peace M.D. [address] [facility] [place] [address] 06/08/2024 2:00 PM CDT Appointment Department of Cardiac Rehabilitation in [place] [address] [place] [address] Keon Peace M.D. [address] [facility] [place] [address] 06/10/2024 2:00 PM CDT Appointment Department of Cardiac Rehabilitation in [place] [address] [place] [address] Keon Peace M.D. [address] [facility] [place] [address] 06/12/2024 2:00 PM CDT Appointment Department of Cardiac Rehabilitation in [place] [address] [place] [address] Keon Peace M.D. [address] [place] [address] documented as of this encounter Visit Diagnoses Not on filedocumented in this encounter Care Teams Design Maker Relationship Specialty Start Date End Date None Reported, Pcp PCP - General Family Medicine 02/28/24 documented as of this encounter
--- OUTSIDE RECORDS SUMMARY | 2024-05-21 13:11 | XMS_ITS | Encounter Summary ---
Author Organization [facility] Address [address] [place] [address] Care Team Providers Care Double Backer Name Role Phone None Reported, Pcp Primary Care Provider Unavail able Reason for Referral * Outpatient (Routine) - Authorized Specialty Diagnoses / Procedures Referred By Godwinac t Referred To Contact Diagnoses Replacement Aortic Valve Tissue Coronary Arterial Bypass Graft Status Post Personal History Procedures Cardiac Rehab [place] [address] Phone: tel: fax: [facility] Region Referral ID Status Reason Start Date Expiration Date V isits Requested Visits Authorized [id number] Authorized 02/20/2024 02/19/2025 45 45 NCIAL SERVICES SPECIALIST Reason for Visit * Outpatient (Routine) - Authorized Specialty Diagnoses / Procedures Referred By Jordan t Referred To Contact Diagnoses Replacement Aortic Valve Tissue Coronary Arterial Bypass Graft Status Post Personal History Procedures Cardiac Rehab [place] [address] Phone: tel: fax: [facility] Region Referral ID Status Reason Start Date Expiration Date V isits Requested Visits Authorized [id number] Authorized 02/20/2024 02/19/2025 45 45 Encounter Details Date Type Department Care Team (Latest Contact Info) Description 05/01/2024 1:50 PM FINANCIAL SERVICES SPECIALIST - 05/01/2024 11:59 PM FINANCIAL SERVICES SPECIALIST Hospital Encounter Department of Cardiac Rehabilitation in [place], [place] [address] [place] [address] Keon Peace M.D. [address] [place] [address] Replacement Aortic Valve Tissue; Coronary Arterial Bypass Graft Status Post Personal History Discharge Disposition: Home or Self Care Social History Tobacco Use Types Packs/Day Years Used Date Smoking Tobacco: Never Dental Answer Date Recorded Dental: Regular Dentist Unknown 12/04/19 24 Comments Unknown Sex and Gender Information Value Date Recorded Sex Assigned at Not on file Legal Sex Female 4:49 PM FINANCIAL SERVICES SPECIALIST Gender Identity Not on file Sexual Orientation Not on file documented as of this encounter Plan of Treatment Upcoming Encounters Date Type Department Care Team (Late st Contact Info) Description 05/22/2024 2:00 PM FINANCIAL SERVICES SPECIALIST Appointment Department of Cardiac Rehabilitation in [place] [address] [place] [address] Keon Peace M.D. [address] [place] [phone] 05/25/2024 2:00 PM FINANCIAL SERVICES SPECIALIST Appointment Department of Cardiac Rehabilitation in [place] [address] [place] [address] Keon Peace M.D. [address] [place] [address] 05/27/2024 2:00 PM FINANCIAL SERVICES SPECIALIST Appointment Department of Cardiac Rehabilitation in [place] [address] [place] [address] Keon Peace M.D. [address] [place] [address] 05/29/2024 2:00 PM FINANCIAL SERVICES SPECIALIST Appointment Department of Cardiac Rehabilitation in [place] [address] [place] [address] Keon Peace M.D. [address] [place], [place] [address], [place] [address] 06/01/2024 2:00 PM FINANCIAL SERVICES SPECIALIST Appointment Department of Cardiac Rehabilitation in [place], [place] [address] [facility] [place] [address] Keon Peace M.D. [address] [facility] [place] [address] 06/03/2024 2:00 PM FINANCIAL SERVICES SPECIALIST Appointment Department of Cardiac Rehabilitation in [place] [address] [facility] [place] [address] Keon Peace M.D. [address] [place] [address], [place] [address] 06/05/2024 2:00 PM FINANCIAL SERVICES SPECIALIST Appointment Department of Cardiac Rehabilitation in [place] [address] [facility] [place] [address] Keon Peace M.D. [address] [place] [address], [place] [address] 06/08/2024 2:00 PM CDT Appointment Department of Cardiac Rehabilitation in [place] [address] [facility] [place] [address] Keon Peace M.D. [address] [place] [address], [place] [address] 06/10/2024 2:00 PM CDT Appointment Department of Cardiac Rehabilitation in [place] [address] [facility] [address] Keon Peace M.D. [address] [facility] [place] [address] 06/12/2024 2:00 PM CDT Appointment Department of Cardiac Rehabilitation in [place], [place] [address] [place] [phone] Keon Peace M.D. [address] [place] [address] Scheduled Orders Name Type Priority Associated Diagnoses Orde r Schedule Cardiac Rehab Program Card Rehab Routine Replacement Aortic Valve Tissue Coronary Arterial Bypass Graft Status Post Personal History Once for 1 Occurrences starting 05/01/2024 until 05/01/2024 documented as of this encounter Visit Diagnoses Diagnosis Replacement Aortic Valve Tissue Coronary Arterial Bypass Graft Status Post Personal History documented in this encounter Care Teams Double Backer Relationship Specialty Start Date End Date None Reported, Pcp PCP - General Family Medicine 02/28/24 documented as of this encounter
--- OUTSIDE RECORDS SUMMARY | 2024-05-21 13:11 | XMS_ITS | Encounter Summary ---
Author Organization [facility] Address [address] [place] [address] Care Team Providers Care Superintendent Distribution Name Role Phone None Reported, Pcp Primary Care Provider Unavail able Reason for Referral * Outpatient (Routine) - Authorized Specialty Diagnoses / Procedures Referred By Godwinac t Referred To Contact Diagnoses Replacement Aortic Valve Tissue Coronary Arterial Bypass Graft Status Post Personal History Procedures Cardiac Rehab Program [place] [address] Phone: tel: fax: [facility] Region Referral ID Status Reason Start Date Expiration Date V isits Requested Visits Authorized [id number] Authorized 02/20/2024 02/19/2025 45 45 R MACHINE OPERATOR Reason for Visit * Outpatient (Routine) - Authorized Specialty Diagnoses / Procedures Referred By Jordan t Referred To Contact Diagnoses Replacement Aortic Valve Tissue Coronary Arterial Bypass Graft Status Post Personal History Procedures Cardiac Rehab Program [place] [address] Phone: tel: fax: [facility] Region Referral ID Status Reason Start Date Expiration Date V isits Requested Visits Authorized [id number] Authorized 02/20/2024 02/19/2025 45 45 Encounter Details Date Type Department Care Team (Latest Contact Info) Description 04/29/2024 1:45 PM LASER MACHINE OPERATOR - 04/29/2024 11:59 PM LASER MACHINE OPERATOR Hospital Encounter Department of Cardiac Rehabilitation in [place], [place] [address] [place] [phone] Keon Peace M.D. [address] [place] [phone] Replacement Aortic Valve Tissue; Coronary Arterial Bypass Graft Status Post Personal History Discharge Disposition: Home or Self Care Social History Tobacco Use Types Packs/Day Years Used Date Smoking Tobacco: Never Dental Answer Date Recorded Dental: Regular Dentist Unknown 12/04/19 24 Comments Unknown Sex and Gender Information Value Date Recorded Sex Assigned at Not on file Legal Sex Female 4:49 PM LASER MACHINE OPERATOR Gender Identity Not on file Sexual Orientation Not on file documented as of this encounter Plan of Treatment Upcoming Encounters Date Type Department Care Team (Late st Contact Info) Description 05/22/2024 2:00 PM LASER MACHINE OPERATOR Appointment Department of Cardiac Rehabilitation in [place] [address] [place] [address] Keon Peace M.D. [address] [place] [phone] 05/25/2024 2:00 PM LASER MACHINE OPERATOR Appointment Department of Cardiac Rehabilitation in [place] [address] [place] [address] Keon Peace M.D. [address] [place] [phone] 05/27/2024 2:00 PM LASER MACHINE OPERATOR Appointment Department of Cardiac Rehabilitation in [place] [address] [place] [address] Keon Peace M.D. [address] [place] [address] 05/29/2024 2:00 PM LASER MACHINE OPERATOR Appointment Department of Cardiac Rehabilitation in [place] [address] [place] [address] Keon Peace M.D. [address] [place], [place] [address], [place] [address] 06/01/2024 2:00 PM LASER MACHINE OPERATOR Appointment Department of Cardiac Rehabilitation in [place], [place] [address] [place] [address] Keon Peace M.D. [address] [place] [address] 06/03/2024 2:00 PM LASER MACHINE OPERATOR Appointment Department of Cardiac Rehabilitation in [place] [address] [place] [address] Keon Peace M.D. [address] [place] [address], [place] [address] 06/05/2024 2:00 PM LASER MACHINE OPERATOR Appointment Department of Cardiac Rehabilitation in [place] [address] [place] [address] Keon Peace M.D. [address] [place] [address], [place] [address] 06/08/2024 2:00 PM CDT Appointment Department of Cardiac Rehabilitation in [place] [address] [place] [address] Keon Peace M.D. [address] [place] [address], [place] [address] 06/10/2024 2:00 PM CDT Appointment Department of Cardiac Rehabilitation in [place] [address] [place] [address] Keon Peace M.D. [address] [place] [address] 06/12/2024 2:00 PM CDT Appointment Department of Cardiac Rehabilitation in [place], [place] [address] [place] [address] Keon Peace M.D. [address] [place] [address] Scheduled Orders Name Type Priority Associated Diagnoses Orde r Schedule Cardiac Rehab Program Card Rehab Routine Replacement Aortic Valve Tissue Coronary Arterial Bypass Graft Status Post Personal History Once for 1 Occurrences starting 04/29/2024 until 04/29/2024 documented as of this encounter Visit Diagnoses Diagnosis Replacement Aortic Valve Tissue Coronary Arterial Bypass Graft Status Post Personal History documented in this encounter Care Teams Superintendent Distribution Relationship Specialty Start Date End Date None Reported, Pcp PCP - General Family Medicine 02/28/24 documented as of this encounter
--- OUTSIDE RECORDS SUMMARY | 2024-05-21 13:12 | XMS_ITS | Encounter Summary ---
Author Organization [facility] Address [address] [place] [address] Care Team Providers Care Oxidation Engineer Name Role Phone None Reported, Pcp Primary Care Provider Unavail able Encounter Details Date Type Department Care Team (Latest Contact Info) Description 04/16/2024 Plan of Care Documentation Department of Cardiac Rehabilitation in [place] [address] [place] [address] Social History Tobacco Use Types Packs/Day Years Used Date Smoking Tobacco: Never Dental Answer Date Recorded Dental: Regular Dentist Unknown 12/04/19 24 Comments Unknown Sex and Gender Information Value Date Recorded Sex Assigned at Not on file Legal Sex Female 4:49 PM SPECIAL WARFARE OPERATOR Gender Identity Not on file Sexual Orientation Not on file documented as of this encounter Miscellaneous Notes * Specialty Plan of Care - Delmi Link R.N. - 04/16/2024 9:49 AM SPECIAL WARFARE OPERATOR Images from the original note were not included. Ms. Cody (88 y.o., : 1935, ) was referred to the [facility] Cardiac Rehab Program on 02/10/2024, by Lakisha and has completed 21 sessions out of the 36 prescribed. 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 Patient has attended 11 sessions of cardiac rehab and feels it has been going well. Patient had Aortic valve replace ment with [id number] mm tissue valve, Coronary artery bypass grafting [...] % 55 % 55 % 55 % [place] [employer] Functional Class I - Normal [...] CR. Exercise Education Documentation Exercise Program Guidelines [id number], taught by Gosia Rivas R.N. at 03/13/2024 10:24 AM. Learner: Patient Readiness: Eager Method: Explanation Response: Able to Teach Back Interval Training [id number], taught by Skye Juarez at 03/23/2024 3:09 PM. Learner: Patient Readiness: Eager Method: Explanation, Handout, Class / Group Response: Able to Teach Back Stretches [id number], taught by Skye Juarez at 03/18/2024 3:09 [...] Nutrition Guidelines for Cholesterol, Triglycerides and Sodium RC1988-27, taught by Skye Juarez at 04/03/2024 3:01 PM. Learner: Patient Readiness: Eager Method: Explanation, Handout, Class / Group Response: Able to Teach Back How to Read a Food Label VE6985-66, taught by Gosia Rivas RRemy at 03/30/2024 2:47 PM. Learner: Patient Readiness: Eager Method: Explanation Response: Able to Teach Back Mediterranean Diet Pyramid: Guidelines for Adults GM6885-69, taught by Skye Juarez at 02/26/2024 3:06 PM. Learner: Patient Readiness: Eager Method: Explanation, Handout, Class / Group Response: Able to Teach Back Mediterranean Diet SX0175, taught by Skye Juarez at 02/26/2024 3:06 [...] upcoming sessions. Psychosocial Education Documentation Relaxation Techniques [id number], taught by Skye Juarez at 04/10/2024 3:02 PM. Learner: Patient Readiness: Eager Method: Explanation, Handout, Class / Group Response: Able to Teach Back Stress Reducers [id number], taught by Skye Juarez at 04/08/2024 3:04 PM. Learner: Patient Readiness: Eager Method: Explanation, Handout, Class / Group Response: Able to Teach Back Stress Management GG2212, taught by Gosia Rivas R.N. at 04/08/2024 1:47 PM. Learner: Patient Readiness: Eager Method: Explanation Response: Able to Teach Back Knowing About Depression Finding Your Way [id number], taught by Skye Juarez at 04/06/2024 3:04 PM. Learner: Patient Readiness: Eager Method: Explanation, Handout, Class / Group Response: Able to Teach Back My Road to Better Health Sleep AM6054-34, taught by Gosia Rivas R.N. at 03/04/2024 [...] High Blood Pressure Also Known as Hypertension [id number], taught by Gosia Rivas R.N. at 04/15/2024 2:02 PM. Learner: Patient Readiness: Eager Method: Explanation Response: Able to Teach Back Risk Factors For Heart Disease GG6811-81, taught by Skye Juarez at 03/06/2024 2:47 [...] instructions. Delmi Link R.N. 04/16/2024 9:49 AM SPECIAL WARFARE OPERATOR Medications were reviewed every visit. IAL WARFARE OPERATOR documented in this encounter Plan of Treatment Upcoming Encounters Date Type Department Care Team (Late st Contact Info) Description 05/22/2024 2:00 PM SPECIAL WARFARE OPERATOR Appointment Department of Cardiac Rehabilitation in [place], [place] [address] [place] [address] Keon Peace M.D. [address] [place] [address] 05/25/2024 2:00 PM SPECIAL WARFARE OPERATOR Appointment Department of Cardiac Rehabilitation in [place], [place] [address] [place] [address] Keon Peace M.D. [address] [facility] [address] 05/27/2024 2:00 PM SPECIAL WARFARE OPERATOR Appointment Department of Cardiac Rehabilitation in [place], [place] [address] [place] [address] Keon Peace M.D. [address] [facility] [place] [address] 05/29/2024 2:00 PM SPECIAL WARFARE OPERATOR Appointment Department of Cardiac Rehabilitation in [place] [address] [place] [address] Keon Peace M.D. [address] [facility] [address] 06/01/2024 2:00 PM SPECIAL WARFARE OPERATOR Appointment Department of Cardiac Rehabilitation in [place] [address] [place] [address] Keon Peace M.D. [address] [facility] [address] 06/03/2024 2:00 PM SPECIAL WARFARE OPERATOR Appointment Department of Cardiac Rehabilitation in [place] [address] [place] [address] Keon Peace M.D. [address] [facility] [address] 06/05/2024 2:00 PM SPECIAL WARFARE OPERATOR Appointment Department of Cardiac Rehabilitation in [place] [address] [place] [address] Keon Peace M.D. [address] [facility] [address] 06/08/2024 2:00 PM CDT Appointment Department of Cardiac Rehabilitation in [place], [place] [address] [place] [address] Keon Peace M.D. [address] [place] [address] 06/10/2024 2:00 PM CDT Appointment Department of Cardiac Rehabilitation in [place], [place] [address] [place] [address] Keon Peace M.D. [address] [place] [address] 06/12/2024 2:00 PM CDT Appointment Department of Cardiac Rehabilitation in [place] [address] [place] [address] Keon Peace M.D. [address] [place] [address] documented as of this encounter Visit Diagnoses Not on filedocumented in this encounter Care Teams Oxidation Engineer Relationship Specialty Start Date End Date None Reported, Pcp PCP - General Family Medicine 02/28/24 documented as of this encounter
--- OUTSIDE RECORDS SUMMARY | 2024-05-21 13:12 | XMS_ITS | Encounter Summary ---
Author Organization [facility] Address [address] [place] [address] Care Team Providers Care Off Track Betting Manager Name Role Phone None Reported, Pcp Primary Care Provider Unavail able Reason for Referral * Outpatient (Routine) - Authorized Specialty Diagnoses / Procedures Referred By Godwinac t Referred To Contact Diagnoses Replacement Aortic Valve Tissue Coronary Arterial Bypass Graft Status Post Personal History Procedures Cardiac Rehab [place] [address] Phone: tel: fax: [facility] Region Referral ID Status Reason Start Date Expiration Date V isits Requested Visits Authorized [id number] Authorized 02/20/2024 02/19/2025 45 45 S COMPENSATION ANALYST Reason for Visit * Outpatient (Routine) - Authorized Specialty Diagnoses / Procedures Referred By Jordan t Referred To Contact Diagnoses Replacement Aortic Valve Tissue Coronary Arterial Bypass Graft Status Post Personal History Procedures Cardiac Rehab [place] [address] Phone: tel: fax: [facility] Region Referral ID Status Reason Start Date Expiration Date V isits Requested Visits Authorized [id number] Authorized 02/20/2024 02/19/2025 45 45 Encounter Details Date Type Department Care Team (Latest Contact Info) Description 04/24/2024 1:43 PM SALES COMPENSATION ANALYST - 04/24/2024 11:59 PM SALES COMPENSATION ANALYST Hospital Encounter Department of Cardiac Rehabilitation in [place], [place] [address] [place] [address] Keon Peace M.D. [address] [place] [address] Replacement Aortic Valve Tissue; Coronary Arterial Bypass Graft Status Post Personal History Discharge Disposition: Home or Self Care Social History Tobacco Use Types Packs/Day Years Used Date Smoking Tobacco: Never Dental Answer Date Recorded Dental: Regular Dentist Unknown 12/04/19 24 Comments Unknown Sex and Gender Information Value Date Recorded Sex Assigned at Not on file Legal Sex Female 4:49 PM SALES COMPENSATION ANALYST Gender Identity Not on file Sexual Orientation Not on file documented as of this encounter Plan of Treatment Upcoming Encounters Date Type Department Care Team (Late st Contact Info) Description 05/22/2024 2:00 PM SALES COMPENSATION ANALYST Appointment Department of Cardiac Rehabilitation in [place] [address] [place] [address] Keon Peace M.D. [address] [place] [address] 05/25/2024 2:00 PM SALES COMPENSATION ANALYST Appointment Department of Cardiac Rehabilitation in [place] [address] [place] [address] Keon Peace M.D. [address] [place] [address] 05/27/2024 2:00 PM SALES COMPENSATION ANALYST Appointment Department of Cardiac Rehabilitation in [place] [address] [place] [address] Keon Peace M.D. [address] [place] [address] 05/29/2024 2:00 PM SALES COMPENSATION ANALYST Appointment Department of Cardiac Rehabilitation in [place] [address] [place] [address] Keon Peace M.D. [address] [place], [place] [address], [place] [address] 06/01/2024 2:00 PM SALES COMPENSATION ANALYST Appointment Department of Cardiac Rehabilitation in [place], [place] [address] [place] [address] Keon Peace M.D. [address] [facility] [place] [address] 06/03/2024 2:00 PM SALES COMPENSATION ANALYST Appointment Department of Cardiac Rehabilitation in [place] [address] [place] [address] Keon Peace M.D. [address] [place] [address], [place] [address] 06/05/2024 2:00 PM SALES COMPENSATION ANALYST Appointment Department of Cardiac Rehabilitation in [place] [address] [place] [address] Keon Peace M.D. [address] [place] [address], [place] [address] 06/08/2024 2:00 PM CDT Appointment Department of Cardiac Rehabilitation in [place] [address] [place] [address] Keon Peace M.D. [address] [place] [address], [place] [address] 06/10/2024 2:00 PM CDT Appointment Department of Cardiac Rehabilitation in [place] [address] [place] [address] Keon Peace M.D. [address] [facility] [place] [address] 06/12/2024 2:00 PM CDT Appointment Department of Cardiac Rehabilitation in [place], [place] [address] [place] [address] Keon Peace M.D. [address] [place] [address] Scheduled Orders Name Type Priority Associated Diagnoses Orde r Schedule Cardiac Rehab Program Card Rehab Routine Replacement Aortic Valve Tissue Coronary Arterial Bypass Graft Status Post Personal History Once for 1 Occurrences starting 04/24/2024 until 04/24/2024 documented as of this encounter Visit Diagnoses Diagnosis Replacement Aortic Valve Tissue Coronary Arterial Bypass Graft Status Post Personal History documented in this encounter Care Teams Off Track Betting Manager Relationship Specialty Start Date End Date None Reported, Pcp PCP - General Family Medicine 02/28/24 documented as of this encounter
--- OUTSIDE RECORDS SUMMARY | 2024-05-21 13:12 | XMS_ITS | Encounter Summary ---
Author Organization [facility] Address [address] [place] [address] Care Team Providers Care Urology Surgeon Name Role Phone None Reported, Pcp Primary Care Provider Unavail able Reason for Referral * Outpatient (Routine) - Authorized Specialty Diagnoses / Procedures Referred By Godwinac t Referred To Contact Diagnoses Replacement Aortic Valve Tissue Coronary Arterial Bypass Graft Status Post Personal History Procedures Cardiac Rehab Program [place] [address] Phone: tel: fax: [facility] Referral ID Status Reason Start Date Expiration Date V isits Requested Visits Authorized [id number] Authorized 02/20/2024 02/19/2025 45 45 CHECKER Reason for Visit * Outpatient (Routine) - Authorized Specialty Diagnoses / Procedures Referred By Jordan t Referred To Contact Diagnoses Replacement Aortic Valve Tissue Coronary Arterial Bypass Graft Status Post Personal History Procedures Cardiac Rehab Program [place] [address] Phone: tel: fax: [facility] Referral ID Status Reason Start Date Expiration Date V isits Requested Visits Authorized [id number] Authorized 02/20/2024 02/19/2025 45 45 Encounter Details Date Type Department Care Team (Latest Contact Info) Description 04/22/2024 1:59 PM CAR CHECKER - 04/22/2024 11:59 PM CAR CHECKER Hospital Encounter Department of Cardiac Rehabilitation in [place], [place] [address] [place] [phone] Keon Peace M.D. [address] [place] [phone] Replacement Aortic Valve Tissue; Coronary Arterial Bypass Graft Status Post Personal History Discharge Disposition: Home or Self Care Social History Tobacco Use Types Packs/Day Years Used Date Smoking Tobacco: Never Dental Answer Date Recorded Dental: Regular Dentist Unknown 12/04/19 24 Comments Unknown Sex and Gender Information Value Date Recorded Sex Assigned at Not on file Legal Sex Female 4:49 PM CAR CHECKER Gender Identity Not on file Sexual Orientation Not on file documented as of this encounter Plan of Treatment Upcoming Encounters Date Type Department Care Team (Late st Contact Info) Description 05/22/2024 2:00 PM CAR CHECKER Appointment Department of Cardiac Rehabilitation in [place] [address] [place] [address] Keon Peace M.D. [address] [place] [phone] 05/25/2024 2:00 PM CAR CHECKER Appointment Department of Cardiac Rehabilitation in [place] [address] [place] [address] Keon Peace M.D. [address] [place] [phone] 05/27/2024 2:00 PM CAR CHECKER Appointment Department of Cardiac Rehabilitation in [place] [address] [place] [address] Keon Peace M.D. [address] [place] [address] 05/29/2024 2:00 PM CAR CHECKER Appointment Department of Cardiac Rehabilitation in [place] [address] [place] [address] Keon Peace M.D. [address] [place], [place] [address], [place] [address] 06/01/2024 2:00 PM CAR CHECKER Appointment Department of Cardiac Rehabilitation in [place], [place] [address] [place] [address] Keon Peace M.D. [address] [place] [address] 06/03/2024 2:00 PM CAR CHECKER Appointment Department of Cardiac Rehabilitation in [place] [address] [place] [address] Keon Peace M.D. [address] [place] [address], [place] [address] 06/05/2024 2:00 PM CAR CHECKER Appointment Department of Cardiac Rehabilitation in [place] [address] [place] [address] Keon Peace M.D. [address] [place] [address], [place] [address] 06/08/2024 2:00 PM CDT Appointment Department of Cardiac Rehabilitation in [place] [address] [place] [address] Keon Peace M.D. [address] [place] [address], [place] [address] 06/10/2024 2:00 PM CDT Appointment Department of Cardiac Rehabilitation in [place] [address] [place] [address] Keon Peace M.D. [address] [place] [address] 06/12/2024 2:00 PM CDT Appointment Department of Cardiac Rehabilitation in [place], [place] [address] [place] [phone] Keon Peace M.D. [address] [place] [phone] Scheduled Orders Name Type Priority Associated Diagnoses Orde r Schedule Cardiac Rehab Program Card Rehab Routine Replacement Aortic Valve Tissue Coronary Arterial Bypass Graft Status Post Personal History Once for 1 Occurrences starting 04/22/2024 until 04/22/2024 documented as of this encounter Visit Diagnoses Diagnosis Replacement Aortic Valve Tissue Coronary Arterial Bypass Graft Status Post Personal History documented in this encounter Care Teams Urology Surgeon Relationship Specialty Start Date End Date None Reported, Pcp PCP - General Family Medicine 02/28/24 documented as of this encounter
--- OUTSIDE RECORDS SUMMARY | 2024-05-21 13:12 | XMS_ITS | Clinical Summary ---
Author Organization [facility] Address [address] [place] [address] Care Team Providers Care Fleet Driver Name Role Phone None Reported, Pcp Primary Care Provider Unavail able Source Comments Patient records contain information from all sites at [facility]. For routine questions regarding patient records, call [phone] during business hours, M-F 8:00 AM - 5:00 PM Central Time. Record requests for emergency care only can be directed to [phone] at any time.[facility] Allergies Active Allergy Reactions Criticality Noted Date Comments Penicillin Itching 02/20/2024 Penicillins Hives only, no other systemic symptoms,Itching Low 06/12/2005 Medications No known medications Active Problems No known active problems Encounters Date Type Department Care Team Description 05/14/2024 Plan of Care Documentation Department of Cardiac Rehabilitation in [address] [address] 05/14/2024 Documentation Department of Cardiac Rehabilitation in [address] [address] Jyoti King C.Ph.T. 05/14/2024 Clinical Communication Department of Cardiac Rehabilitation in [address] [address] Jyoti King C.Ph.T. 05/01/2024 1:50 PM STEEL LAYOUT WORKER - 05/01/2024 11:59 PM STEEL LAYOUT WORKER Hospital Encounter Department of Cardiac Rehabilitation in [address] [address] Keon Peace M.D. Replacement Aortic Valve Tissue; Coronary Arterial Bypass Graft Status Post Personal History Discharge Disposition: Home or Self Care 04/29/2024 1:45 PM STEEL LAYOUT WORKER - 04/29/2024 11:59 PM STEEL LAYOUT WORKER Hospital Encounter Department of Cardiac Rehabilitation in [address] [address] Keon Peace M.D. Replacement Aortic Valve Tissue; Coronary Arterial Bypass Graft Status Post Personal History Discharge Disposition: Home or Self Care 04/27/2024 1:56 PM STEEL LAYOUT WORKER - 04/27/2024 11:59 PM STEEL LAYOUT WORKER Hospital Encounter Department of Cardiac Rehabilitation in [address] [address] Keon Peace M.D. Replacement Aortic Valve Tissue; Coronary Arterial Bypass Graft Status Post Personal History Discharge Disposition: Home or Self Care 04/24/2024 1:43 PM STEEL LAYOUT WORKER - 04/24/2024 11:59 PM STEEL LAYOUT WORKER Hospital Encounter Department of Cardiac Rehabilitation in [address] [address] Keon Peace M.D. Replacement Aortic Valve Tissue; Coronary Arterial Bypass Graft Status Post Personal History Discharge Disposition: Home or Self Care 04/22/2024 1:59 PM STEEL LAYOUT WORKER - 04/22/2024 11:59 PM STEEL LAYOUT WORKER Hospital Encounter Department of Cardiac Rehabilitation in [address] [address] Keon Peace M.D. Replacement Aortic Valve Tissue; Coronary Arterial Bypass Graft Status Post Personal History Discharge Disposition: Home or Self Care 04/20/2024 1:50 PM STEEL LAYOUT WORKER - 04/20/2024 11:59 PM STEEL LAYOUT WORKER Hospital Encounter Department of Cardiac Rehabilitation in [address] [address] Keon Peace M.D. Replacement Aortic Valve Tissue; Coronary Arterial Bypass Graft Status Post Personal History Discharge Disposition: Home or Self Care 04/17/2024 1:44 PM STEEL LAYOUT WORKER - 04/17/2024 11:59 PM STEEL LAYOUT WORKER Hospital Encounter Department of Cardiac Rehabilitation in [address] [address] Keon Peace M.D. Replacement Aortic Valve Tissue; Coronary Arterial Bypass Graft Status Post Personal History Discharge Disposition: Home or Self Care 04/16/2024 Plan of Care Documentation Department of Cardiac Rehabilitation in [address] [address] 04/15/2024 1:53 PM STEEL LAYOUT WORKER - 04/15/2024 11:59 PM STEEL LAYOUT WORKER Hospital Encounter Department of Cardiac Rehabilitation in [address] [address] Keon Peace M.D. Replacement Aortic Valve Tissue; Coronary Arterial Bypass Graft Status Post Personal History Discharge Disposition: Home or Self Care 04/13/2024 1:41 PM STEEL LAYOUT WORKER - 04/13/2024 11:59 PM STEEL LAYOUT WORKER Hospital Encounter Department of Cardiac Rehabilitation in [address] [address] Keon Peace M.D. Replacement Aortic Valve Tissue; Coronary Arterial Bypass Graft Status Post Personal History Discharge Disposition: Home or Self Care 04/10/2024 1:44 PM STEEL LAYOUT WORKER - 04/10/2024 11:59 PM STEEL LAYOUT WORKER Hospital Encounter Department of Cardiac Rehabilitation in [address] [address] Keon Peace M.D. Replacement Aortic Valve Tissue; Coronary Arterial Bypass Graft Status Post Personal History Discharge Disposition: Home or Self Care 04/08/2024 1:43 PM STEEL LAYOUT WORKER - 04/08/2024 11:59 PM STEEL LAYOUT WORKER Hospital Encounter Department of Cardiac Rehabilitation in [address] [address] Keon Peace M.D. Replacement Aortic Valve Tissue; Coronary Arterial Bypass Graft Status Post Personal History Discharge Disposition: Home or Self Care 04/06/2024 1:46 PM STEEL LAYOUT WORKER - 04/06/2024 11:59 PM STEEL LAYOUT WORKER Hospital Encounter Department of Cardiac Rehabilitation in [address] [address] Keon Peace M.D. Replacement Aortic Valve Tissue; Coronary Arterial Bypass Graft Status Post Personal History Discharge Disposition: Home or Self Care 04/03/2024 1:37 PM STEEL LAYOUT WORKER - 04/03/2024 11:59 PM STEEL LAYOUT WORKER Hospital Encounter Department of Cardiac Rehabilitation in [address] [address] Keon Peace M.D. Replacement Aortic Valve Tissue; Coronary Arterial Bypass Graft Status Post Personal History Discharge Disposition: Home or Self Care 03/30/2024 1:33 PM STEEL LAYOUT WORKER - 03/30/2024 11:59 PM STEEL LAYOUT WORKER Hospital Encounter Department of Cardiac Rehabilitation in [address] [address] Keon Peace M.D. Replacement Aortic Valve Tissue; Coronary Arterial Bypass Graft Status Post Personal History Discharge Disposition: Home or Self Care 03/27/2024 12:06 PM STEEL LAYOUT WORKER - 03/27/2024 11:59 PM STEEL LAYOUT WORKER Hospital Encounter Department of Cardiac Rehabilitation in [address] [address] Keon Peace M.D. Replacement Aortic Valve Tissue; Coronary Arterial Bypass Graft Status Post Personal History Discharge Disposition: Home or Self Care 03/23/2024 1:27 PM STEEL LAYOUT WORKER - 03/23/2024 11:59 PM STEEL LAYOUT WORKER Hospital Encounter Department of Cardiac Rehabilitation in [address] [address] Keon Peace M.D. Replacement Aortic Valve Tissue; Coronary Arterial Bypass Graft Status Post Personal History Discharge Disposition: Home or Self Care 03/20/2024 1:39 PM STEEL LAYOUT WORKER - 03/20/2024 11:59 PM STEEL LAYOUT WORKER Hospital Encounter Department of Cardiac Rehabilitation in [address] [address] Keon Peace M.D. Replacement Aortic Valve Tissue; Coronary Arterial Bypass Graft Status Post Personal History Discharge Disposition: Home or Self Care 03/19/2024 Plan of Care Documentation Department of Cardiac Rehabilitation in [address] [address] 03/18/2024 1:28 PM STEEL LAYOUT WORKER - 03/18/2024 11:59 PM STEEL LAYOUT WORKER Hospital Encounter Department of Cardiac Rehabilitation in [address] [address] Keon Peace M.D. Replacement Aortic Valve Tissue; Coronary Arterial Bypass Graft Status Post Personal History Discharge Disposition: Home or Self Care 03/16/2024 1:40 PM STEEL LAYOUT WORKER - 03/16/2024 11:59 PM STEEL LAYOUT WORKER Hospital Encounter Department of Cardiac Rehabilitation in [address] [address] Keon Peace M.D. Replacement Aortic Valve Tissue; Coronary Arterial Bypass Graft Status Post Personal History Discharge Disposition: Home or Self Care 03/13/2024 10:14 AM STEEL LAYOUT WORKER - 03/13/2024 11:59 PM STEEL LAYOUT WORKER Hospital Encounter Department of Cardiac Rehabilitation in [address] [address] Keon Peace M.D. Replacement Aortic Valve Tissue; Coronary Arterial Bypass Graft Status Post Personal History Discharge Disposition: Home or Self Care 03/11/2024 1:46 PM STEEL LAYOUT WORKER - 03/11/2024 11:59 PM STEEL LAYOUT WORKER Hospital Encounter Department of Cardiac Rehabilitation in [address] [address] Keon Peace M.D. Replacement Aortic Valve Tissue; Coronary Arterial Bypass Graft Status Post Personal History Discharge Disposition: Home or Self Care 03/09/2024 1:47 PM STEEL LAYOUT WORKER - 03/09/2024 11:59 PM STEEL LAYOUT WORKER Hospital Encounter Department of Cardiac Rehabilitation in [address] [address] Keon Peace M.D. Replacement Aortic Valve Tissue; Coronary Arterial Bypass Graft Status Post Personal History Discharge Disposition: Home or Self Care 03/06/2024 1:48 PM STEEL LAYOUT WORKER - 03/06/2024 11:59 PM STEEL LAYOUT WORKER Hospital Encounter Department of Cardiac Rehabilitation in [address] [address] Keon Peace M.D. Replacement Aortic Valve Tissue; Coronary Arterial Bypass Graft Status Post Personal History Discharge Disposition: Home or Self Care 03/04/2024 1:53 PM STEEL LAYOUT WORKER - 03/04/2024 11:59 PM STEEL LAYOUT WORKER Hospital Encounter Department of Cardiac Rehabilitation in [address] [address] Keon Peace M.D. Replacement Aortic Valve Tissue; Coronary Arterial Bypass Graft Status Post Personal History Discharge Disposition: Home or Self Care 03/02/2024 1:54 PM STEEL LAYOUT WORKER - 03/02/2024 11:59 PM STEEL LAYOUT WORKER Hospital Encounter Department of Cardiac Rehabilitation in [address] [address] Keon Peace M.D. Replacement Aortic Valve Tissue; Coronary Arterial Bypass Graft Status Post Personal History Discharge Disposition: Home or Self Care 02/28/2024 2:54 PM STEEL LAYOUT WORKER - 02/28/2024 3:46 PM STEEL LAYOUT WORKER Emergency [facility] [address] [place] [address] Paul Caruso M.D. History Of Falling (Primary Dx); Injury Head Intracranial Closed Without Loss Of Consciousness Initial (HCC) Discharge Disposition: Home or Self Care 02/28/2024 1:53 PM STEEL LAYOUT WORKER - 02/28/2024 2:53 PM STEEL LAYOUT WORKER Hospital Encounter Department of Cardiac Rehabilitation in [address] [address] Keon Peace M.D. Replacement Aortic Valve Tissue; Coronary Arterial Bypass Graft Status Post Personal History Discharge Disposition: Home or Self Care 02/26/2024 2:00 PM STEEL LAYOUT WORKER - 02/26/2024 11:59 PM STEEL LAYOUT WORKER Hospital Encounter Department of Cardiac Rehabilitation in [address] [address] Keon Peace M.D. Replacement Aortic Valve Tissue; Coronary Arterial Bypass Graft Status Post Personal History Discharge Disposition: Home or Self Care 02/24/2024 1:44 PM STEEL LAYOUT WORKER - 02/24/2024 11:59 PM STEEL LAYOUT WORKER Hospital Encounter Department of Cardiac Rehabilitation in [address] [address] Keon Peace M.D. Replacement Aortic Valve Tissue; Coronary Arterial Bypass Graft Status Post Personal History Discharge Disposition: Home or Self Care 02/21/2024 Plan of Care Documentation Department of Cardiac Rehabilitation in [address] [address] 02/20/2024 2:34 PM STEEL LAYOUT WORKER - 02/20/2024 11:59 PM STEEL LAYOUT WORKER Hospital Encounter Department of Cardiac Rehabilitation in [address] [address] Keon Peace M.D. Discharge Disposition: Home or Self Care from Last 3 Months Social History Tobacco Use Types Packs/Day Years Used Date Smoking Tobacco: Never Dental Answer Date Recorded Dental: Regular Dentist Unknown 12/04/19 24 Comments Unknown Sex and Gender Information Value Date Recorded Sex Assigned at Not on file Legal Sex Female 4:49 PM STEEL LAYOUT WORKER Gender Identity Not on file Sexual Orientation Not on file Last Filed Vital Signs Vital Sign Reading Time Taken Comments Blood Pressure 141/70 02/28/2024 3:40 PM STEEL LAYOUT WORKER Pulse 80 02/28/2024 3:40 PM STEEL LAYOUT WORKER Temperature 36.5 C (97.7 F) 02/28/2024 3:40 PM STEEL LAYOUT WORKER Respiratory Rate 17 02/28/2024 3:40 PM STEEL LAYOUT WORKER Oxygen Saturation 95% 02/28/2024 3:40 PM STEEL LAYOUT WORKER Inhaled Oxygen Concentration - - Weight 65.2 kg (143 lb 11.2 oz) 02/28/2024 2:57 PM STEEL LAYOUT WORKER Height 162 cm (5' 3.78) 10/31/2012 4:13 PM CDT Body Mass Index - - Plan of Treatment Upcoming Encounters Date Type Department Care Team (Late st Contact Info) Description 05/22/2024 2:00 PM STEEL LAYOUT WORKER Appointment Department of Cardiac Rehabilitation in [address] [place] [address] Keon Peace M.D. [address] [place] [address] 05/25/2024 2:00 PM STEEL LAYOUT WORKER Appointment Department of Cardiac Rehabilitation in [place] [address] [place] [address] Keon Peace M.D. [address] [place] [address] 05/27/2024 2:00 PM STEEL LAYOUT WORKER Appointment Department of Cardiac Rehabilitation in [address] [place] [address] Keon Peace M.D. [address] [place] [address], [place] [address] 05/29/2024 2:00 PM STEEL LAYOUT WORKER Appointment Department of Cardiac Rehabilitation in [address] [place] [address] Keon Peace M.D. [address] [place] [address] 06/01/2024 2:00 PM STEEL LAYOUT WORKER Appointment Department of Cardiac Rehabilitation in [place] [address] [place] [address] Keon Peace M.D. [address] [place] [address], [place] [address] 06/03/2024 2:00 PM STEEL LAYOUT WORKER Appointment Department of Cardiac Rehabilitation in [address] [place] [address] Keon Peace M.D. [address] [place] [address], [place] [address] 06/05/2024 2:00 PM STEEL LAYOUT WORKER Appointment Department of Cardiac Rehabilitation in [place] [address] [place] [address] Keon Peace M.D. [address] [place] [address], [place] [address] 06/08/2024 2:00 PM CDT Appointment Department of Cardiac Rehabilitation in [address] [place] [address] Keon Peace M.D. [address] [place] [address], [place] [address] 06/10/2024 2:00 PM CDT Appointment Department of Cardiac Rehabilitation in [address] [place] [address] Keon Peace M.D. [address] [place] [address], [place] [address] 06/12/2024 2:00 PM CDT Appointment Department of Cardiac Rehabilitation in [address] [place] [address] Keon Peace M.D. [address] [place] [phone] Health Maintenance Due Date Last Done Comments [...] ED patients; some inpatients) 02/28/2024 3:[address] HEAD WITHOUT IV CONTRAST RAD - Semiurgent (Fast; most ED patients; some inpatients) 02/28/2024 3:20 PM STEEL LAYOUT WORKER 6 MINUTE WALK Routine 02/24/2024 2:00 PM STEEL LAYOUT WORKER Replacement Aortic Valve Tissue Coronary Arterial Bypass Graft Status Post Personal History from Last 3 Months Results * CT Cervical Spine without IV Contrast (02/28/2024 3:20 PM STEEL LAYOUT WORKER) Anatomical Region Laterality Modality Cervical Spine, Neuroradiolo gy RST LOS, Neuroradiology ARZ LOS, Neuroradiology FLA LOS N/A Computed Tomography 02/28/2024 3:18 PM STEEL LAYOUT WORKER Impressions 02/28/2024 3:31 PM STEEL LAYOUT WORKER No acute traumatic osseous injury of the cervical spine. Narrative 02/28/2024 3:31 PM STEEL LAYOUT WORKER EXAM: CT CERVICAL SPINE WITHOUT IV CONTRAST [...] Head without IV Contrast (02/28/2024 3:20 PM STEEL LAYOUT WORKER) Anatomical Region Laterality Modality Head, Neuroradiology RST [facility] , Neuroradiology ARZ [facility], Neuroradiology FLA [facility] N/A Computed Tomography 02/28/2024 3:17 PM STEEL LAYOUT WORKER Impressions 02/28/2024 3:27 PM STEEL LAYOUT WORKER No acute intracranial abnormality. No acute traumatic osseous injury. Narrative 02/28/2024 3:27 PM STEEL LAYOUT WORKER EXAM: CT HEAD WITHOUT IV CONTRAST COMPARISON: [...] * 6 MINUTE WALK (02/24/2024 2:00 PM STEEL LAYOUT WORKER) Narrative Gosia Rivas R.N. - 02/24/2024 2:00 PM STEEL LAYOUT WORKER Gosia Rivas R.N. 02/24/2024 2:23 PM Six [...] - Fairly Light Time of Test: 14:10 STEEL LAYOUT WORKER Total Distance Walked (Feet): 1009 Total Distance Walked (Meters): 307.54 Total # of Times Stopped: 0 Time Stopped (Seconds): 0 Time Walked (Seconds): 360 CALCULATIONS Estimated MPH: 1.9 Estimated METs: 2.46 % of Predicted Distance: 84.64 COMMENTS Pt tolerated 6 min walk well. us Keon Peace M.D. CV STRESS PROCEDURES Daya l Result from Last 3 Months Insurance [facility] [place] [address] MEDICARE Care Teams Fleet Driver Relationship Specialty Start Date End Date None Reported, Pcp PCP - General Family Medicine 02/28/24
--- OUTSIDE RECORDS SUMMARY | 2024-05-21 13:12 | XMS_ITS | Encounter Summary ---
Author Organization [facility] Address [address] [place] [address] Care Team Providers Care Textile Science Technician Name Role Phone None Reported, Pcp Primary Care Provider Unavail able Reason for Referral * Outpatient (Routine) - Authorized Specialty Diagnoses / Procedures Referred By Godwinac t Referred To Contact Diagnoses Replacement Aortic Valve Tissue Coronary Arterial Bypass Graft Status Post Personal History Procedures Cardiac Rehab [place] [address] Phone: tel: fax: [facility] Region Referral ID Status Reason Start Date Expiration Date V isits Requested Visits Authorized [id number] Authorized 02/20/2024 02/19/2025 45 45 AL DIRECTOR Reason for Visit * Outpatient (Routine) - Authorized Specialty Diagnoses / Procedures Referred By Jordan t Referred To Contact Diagnoses Replacement Aortic Valve Tissue Coronary Arterial Bypass Graft Status Post Personal History Procedures Cardiac Rehab [place] [address] Phone: tel: fax: [facility] Region Referral ID Status Reason Start Date Expiration Date V isits Requested Visits Authorized [id number] Authorized 02/20/2024 02/19/2025 45 45 Encounter Details Date Type Department Care Team (Latest Contact Info) Description 04/17/2024 1:44 PM SOCIAL DIRECTOR - 04/17/2024 11:59 PM SOCIAL DIRECTOR Hospital Encounter Department of Cardiac Rehabilitation in [place], [place] [address] [place] [phone] Keon Peace M.D. [address] [place] [phone] Replacement Aortic Valve Tissue; Coronary Arterial Bypass Graft Status Post Personal History Discharge Disposition: Home or Self Care Social History Tobacco Use Types Packs/Day Years Used Date Smoking Tobacco: Never Dental Answer Date Recorded Dental: Regular Dentist Unknown 12/04/19 24 Comments Unknown Sex and Gender Information Value Date Recorded Sex Assigned at Not on file Legal Sex Female 4:49 PM SOCIAL DIRECTOR Gender Identity Not on file Sexual Orientation Not on file documented as of this encounter Plan of Treatment Upcoming Encounters Date Type Department Care Team (Late st Contact Info) Description 05/22/2024 2:00 PM SOCIAL DIRECTOR Appointment Department of Cardiac Rehabilitation in [place] [address] [place] [address] Keon Peace M.D. [address] [place] [phone] 05/25/2024 2:00 PM SOCIAL DIRECTOR Appointment Department of Cardiac Rehabilitation in [place] [address] [place] [address] Keon Peace M.D. [address] [place] [phone] 05/27/2024 2:00 PM SOCIAL DIRECTOR Appointment Department of Cardiac Rehabilitation in [place] [address] [place] [address] Keon Peace M.D. [address] [place] [address] 05/29/2024 2:00 PM SOCIAL DIRECTOR Appointment Department of Cardiac Rehabilitation in [place] [address] [place] [address] Keon Peace M.D. [address] [place], [place] [address], [place] [address] 06/01/2024 2:00 PM SOCIAL DIRECTOR Appointment Department of Cardiac Rehabilitation in [place], [place] [address] [place] [address] Keon Peace M.D. [address] [place] [address] 06/03/2024 2:00 PM SOCIAL DIRECTOR Appointment Department of Cardiac Rehabilitation in [place] [address] [place] [address] Keon Peace M.D. [address] [place] [address], [place] [address] 06/05/2024 2:00 PM SOCIAL DIRECTOR Appointment Department of Cardiac Rehabilitation in [place] [address] [place] [address] Keon Peace M.D. [address] [place] [address], [place] [address] 06/08/2024 2:00 PM CDT Appointment Department of Cardiac Rehabilitation in [place] [address] [place] [address] Keon Peace M.D. [address] [place] [address], [place] [address] 06/10/2024 2:00 PM CDT Appointment Department of Cardiac Rehabilitation in [place] [address] [place] [address] Keon Peace M.D. [address] [place] [address] 06/12/2024 2:00 PM CDT Appointment Department of Cardiac Rehabilitation in [place], [place] [address] [place] [phone] Keon Peace M.D. [address] [place] [phone] Scheduled Orders Name Type Priority Associated Diagnoses Orde r Schedule Cardiac Rehab Program Card Rehab Routine Replacement Aortic Valve Tissue Coronary Arterial Bypass Graft Status Post Personal History Once for 1 Occurrences starting 04/17/2024 until 04/17/2024 documented as of this encounter Visit Diagnoses Diagnosis Replacement Aortic Valve Tissue Coronary Arterial Bypass Graft Status Post Personal History documented in this encounter Care Teams Textile Science Technician Relationship Specialty Start Date End Date None Reported, Pcp PCP - General Family Medicine 02/28/24 documented as of this encounter
--- OUTSIDE RECORDS SUMMARY | 2024-05-21 13:12 | XMS_ITS | Encounter Summary ---
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 [address] Phone: tel: fax: [facility] Region Referral ID Status Reason Start Date Expiration Date V isits Requested Visits Authorized [id number] Authorized 02/20/2024 02/19/2025 45 45 Encounter Details Date Type Department Care Team (Latest Contact Info) Description 04/20/2024 1:50 PM ELECTROMECHANICAL TECHNOLOGIST - 04/20/2024 11:59 PM ELECTROMECHANICAL TECHNOLOGIST Hospital Encounter Department of Cardiac Rehabilitation in [place], [place] [address] [place] [phone] Keon Peace M.D. [address] [place] [phone] Replacement Aortic Valve Tissue; Coronary Arterial Bypass Graft Status Post Personal History Discharge Disposition: Home or Self Care Social History Tobacco Use Types Packs/Day Years Used Date Smoking Tobacco: Never Dental Answer Date Recorded Dental: Regular Dentist Unknown 12/04/19 24 Comments Unknown Sex and Gender Information Value Date Recorded Sex Assigned at Not on file Legal Sex Female 4:49 PM ELECTROMECHANICAL TECHNOLOGIST Gender Identity Not on file Sexual Orientation Not on file documented as of this encounter Plan of Treatment Upcoming Encounters Date Type Department Care Team (Late st Contact Info) Description 05/22/2024 2:00 PM ELECTROMECHANICAL TECHNOLOGIST Appointment Department of Cardiac Rehabilitation in [place] [address] [place] [address] Keon Peace M.D. [address] [place] [phone] 05/25/2024 2:00 PM ELECTROMECHANICAL TECHNOLOGIST Appointment Department of Cardiac Rehabilitation in [place] [address] [place] [address] Keon Peace M.D. [address] [place] [phone] 05/27/2024 2:00 PM ELECTROMECHANICAL TECHNOLOGIST Appointment Department of Cardiac Rehabilitation in [place] [address] [place] [address] Keon Peaec M.D. [address] [place] [address] 05/29/2024 2:00 PM ELECTROMECHANICAL TECHNOLOGIST Appointment Department of Cardiac Rehabilitation in [place] [address] [place] [address] Keon Peace M.D. [address] [place], [place] [address], [place] [address] 06/01/2024 2:00 PM ELECTROMECHANICAL TECHNOLOGIST Appointment Department of Cardiac Rehabilitation in [place], [place] [address] [place] [address] Keon Peace M.D. [address] [place] [address] 06/03/2024 2:00 PM ELECTROMECHANICAL TECHNOLOGIST Appointment Department of Cardiac Rehabilitation in [place] [address] [place] [address] Keon Peace M.D. [address] [place] [address], [place] [address] 06/05/2024 2:00 PM ELECTROMECHANICAL TECHNOLOGIST Appointment Department of Cardiac Rehabilitation in [place] [address] [place] [address] Keon Peace M.D. [address] [place] [address], [place] [address] 06/08/2024 2:00 PM CDT Appointment Department of Cardiac Rehabilitation in [place] [address] [place] [address] Keon Peace M.D. [address] [place] [address], [place] [address] 06/10/2024 2:00 PM CDT Appointment Department of Cardiac Rehabilitation in [place] [address] [place] [address] Keon Peace M.D. [address] [place] [address] 06/12/2024 2:00 PM CDT Appointment Department of Cardiac Rehabilitation in [place], [place] [address] [place] [phone] Keon Peace M.D. 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
[2024-05-21 13:16] LABS: Slide Review Reflex No
[2024-05-21 13:26] LABS: Albumin* 4.2 g/dL (3.3-5.0); Chloride* 101 mmol/L (96-114); Potassium* 3.1 mmol/L (3.6-5.1); Sodium* 134 mmol/L (135-149)
[2024-05-21 13:28] LABS: Anion Gap 9 mEq/L (7-15); Bilirubin Total* 0.2 mg/dL (0.1-1.5); Carbon Dioxide* 24 mmol/L (20-32); Creatinine* 0.7 mg/dL (0.5-1.5); Estimated Glomerular Filt Rate 84 ml/min
[2024-05-21 13:29] LABS: Alanine Aminotransferase* 34 U/L (4-35); Alkaline Phosphatase* 95 U/L (40-150); Aspartate Amino Transferase* 48 U/L (12-35); Blood Urea Nitrogen* 13 mg/dL (7-30); Calcium* 8.9 mg/dL (8.4-10.6); Glucose* 185 mg/dL (60-115); Magnesium* 1.6 mg/dL (1.5-2.6); Total Protein* 7.5 g/dL (6.0-8.3)
[2024-05-21] MEDS: POTASSIUM CHLORIDE 10 MEQ CAPSULE ER 40 MEQ PO (13:54)
== END 2024-05-21 14:39 | disposition home or self-care (01) ==
PROVIDERS: Emergency Provider Student in an Organized Health Care Education/Training Program; PCP Family Medicine
DX: K52.9 Noninfective gastroenteritis and colitis, unspecified (principal); Z79.01 Long term (current) use of anticoagulants
CPT/HCPCS: 36415; 74177; 80053; 82565; 83735; 85025; 85610; 99284; 99285; A9270; Q9967

== ENCOUNTER 2024-06-03 16:15 | Emergency (ER) | payer MEDICARE, BC, SELFPAY ==
--- NOTE | 2024-06-03 16:27 | CRLHL7_ITS ---
For Patients: As a result of the Century Cures Act, medical imaging exams and procedure reports are released immediately into your electronic medical record. You may view this report before your referring provider. If you have questions, please contact your health care provider. INDICATION: Head trauma on blood thinners. COMPARISON: None. TECHNIQUE: CT of the head without contrast. FINDINGS: Brain, ventricles, and extra-axial spaces: No acute intracranial hemorrhage. Yan-white differentiation is grossly preserved. Mild hypoattenuating changes in the white matter which are nonspecific, but commonly attributable to chronic microangiopathic change. Size of the ventricles and sulci appears to be commensurate with age. There is mild right-sided basal ganglia mineralization. There are intracranial vascular calcifications. Bones: No acute osseous findings. Mild scattered paranasal sinus mucosal thickening. Visualized mastoid air cells are clear. Additional findings: Mild soft tissue swelling at the left posterior scalp. Status post bilateral lens replacement. IMPRESSION: No acute intracranial noncontrast CT findings. Please note that all CT scans at this facility use dose modulation, iterative reconstruction, and/or weight-based dosing when appropriate to reduce radiation dose to as low as reasonably achievable. Dictated by Marek Sylvester MD @ 06/03/2024 4:49:11 PM (Electronically Signed)
[2024-06-03 16:31] VITALS: BP 184/80; PULSE 72; RESP 18; TEMP 36.7; O2SAT 95; BMI 24.9
--- OUTSIDE RECORDS SUMMARY | 2024-06-03 16:36 | XMS_ITS | Encounter Summary ---
Author Organization [facility] Address [address] [place] [address] Care Team Providers Care Card Cleaner Name Role Phone None Reported, Pcp Primary Care Provider Unavail able Encounter Details Date Type Department Care Team (Latest Contact Info) Description 05/14/2024 Plan of Care Documentation Department of Cardiac Rehabilitation in [place] [address] [place] [address] Social History Tobacco Use Types Packs/Day Years Used Date Smoking Tobacco: Never Dental Answer Date Recorded Dental: Regular Dentist Unknown 12/04/19 24 Comments Unknown Sex and Gender Information Value Date Recorded Sex Assigned at Not on file Legal Sex Female 4:49 PM CONTINUITY READER Gender Identity Not on file Sexual Orientation Not on file documented as of this encounter Miscellaneous Notes * Specialty Plan of Care - Jyoti King C.Ph.T. - 05/14/2024 10:00 AM CST Images from the original note were not included. Ms. Cody (88 y.o., : 1935, ) was referred to the [facility] Cardiac [facility]hab [facility] on 02/10/2024, by Lakisha and has completed 28 sessions out of the 36 prescribed. 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 Patient has attended 11 sessions of cardiac rehab and feels it has been going well. Patient had Aortic valve replace ment with [id number] mm tissue valve, Coronary artery bypass grafting [...] % 55 % 55 % 55 % [place] [employer] Functional Class I - Normal [...] essions. Exercise Education Documentation Exercise Program Guidelines [id number], taught by Gosia Rivas R.N. at 03/13/2024 10:24 AM. Learner: Patient Readiness: Eager Method: Explanation Response: Able to Teach Back Move More and Sit Less the NEAT Way [id number], taught by Gosia Rivas R.N. at 04/22/2024 1:59 PM. Learner: Patient Readiness: Eager Method: Explanation Response: Able to Teach Back Benefits and Barriers Of Exercise [id number], taught by Gosia Rivas R.NJacklyn at 04/20/2024 1:52 PM. Learner: Patient Readiness: Eager Method: Explanation Response: Able to Teach Back Interval Training [id number], taught by Skye Juarez at 03/23/2024 3:09 PM. Learner: Patient Readiness: Eager Method: Explanation, Handout, Class / Group Response: Able to Teach Back Stretches [id number], taught by Skye Juarez at 03/18/2024 3:09 [...] Nutrition Guidelines for Cholesterol, Triglycerides and Sodium [id number], taught by Skye Juarez at 04/03/2024 3:01 PM. Learner: Patient Readiness: Eager Method: Explanation, Handout, Class / Group Response: Able to Teach Back How to Read a Food Label [id number], taught by Gosia Rivas R.N. at 03/30/2024 2:47 PM. Learner: Patient Readiness: Eager Method: Explanation Response: Able to Teach Back Mediterranean Diet Pyramid: Guidelines for Adults [id number], taught by Skye Juarez at 02/26/2024 3:06 PM. Learner: Patient Readiness: Eager Method: Explanation, Handout, Class / Group Response: Able to Teach Back Mediterranean Diet [id number], taught by Skye Juarez at 02/26/2024 3:06 [...] upcoming sessions. Psychosocial Education Documentation Relaxation Techniques [id number], taught by Skye Juarez at 04/10/2024 3:02 PM. Learner: Patient Readiness: Eager Method: Explanation, Handout, Class / Group Response: Able to Teach Back Stress Reducers [id number], taught by Skye Juarez at 04/08/2024 3:04 PM. Learner: Patient Readiness: Eager Method: Explanation, Handout, Class / Group Response: Able to Teach Back Stress Management [id number], taught by Gosia Rivas R.N. at 04/08/2024 1:47 PM. Learner: Patient Readiness: Eager Method: Explanation Response: Able to Teach Back Knowing About Depression Finding Your Way [id number], taught by Skye Juarez at 04/06/2024 3:04 PM. Learner: Patient Readiness: Eager Method: Explanation, Handout, Class / Group Response: Able to Teach Back My Road to Better Health Sleep [id number], taught by Gosia Rivas R.N. at 03/04/2024 [...] High Blood Pressure Also Known as Hypertension TN8989, taught by Gosia Rivas R.N. at 04/15/2024 2:02 PM. Learner: Patient Readiness: Eager Method: Explanation Response: Able to Teach Back Risk Factors For Heart Disease [id number], taught by kSye Juarez at 03/06/2024 2:47 PM. Learner: Patient [...] Medication Compliance Education Documentation Managing Your Medications [id number], taught by Skye Juarez at 04/17/2024 2:37 PM. Learner: Patient Readiness: Eager Method: Explanation, Handout, Class / Group Response: Able to Teach Back Medications were reviewed every visit. Patient expresses understanding and acceptance of instructions. Avi MabryPh.T. 0:00 AM CONTINUITY READER [1] Social History Tobacco Use Smoking Status Never Smokeless Tobacco Not on file INUITY READER documented in this encounter Plan of Treatment Upcoming Encounters Date Type Department Care Team (Late st Contact Info) Description 06/05/2024 2:00 PM CONTINUITY READER Appointment Department of Cardiac Rehabilitation in [place] [address] [place] [address] Keon Peace M.D. [address] [place] [phone] 06/08/2024 2:00 PM CDT Appointment Department of Cardiac Rehabilitation in [place] [address] [place] [address] Keon Peace M.D. [address] [place] [address] 06/10/2024 2:00 PM CDT Appointment Department of Cardiac Rehabilitation in [place] [address] [place] [address] Keon Peace M.D. [address] [place] [address] 06/12/2024 2:00 PM CDT Appointment Department of Cardiac Rehabilitation in [place] [address] [place] [address] Keon Peace M.D. [address] [place] [address] 06/15/2024 2:00 PM CDT Appointment Department of Cardiac Rehabilitation in [place], [place] [address] [place] [address] Keon Peace M.D. [address] [place] [address] 06/17/2024 2:00 PM CDT Appointment Department of Cardiac Rehabilitation in [place], [place] [address] [place] [address] Keon Peace M.D. [address] [place] [phone] documented as of this encounter Visit Diagnoses Not on filedocumented in this encounter Care Teams Card Cleaner Relationship Specialty Start Date End Date None Reported, Pcp PCP - General Family Medicine 02/28/24 documented as of this encounter
--- OUTSIDE RECORDS SUMMARY | 2024-06-03 16:37 | XMS_ITS | Encounter Summary ---
Author Organization [facility] Address [address] [place] [address] Care Team Providers Care Mold Repair Technician Name Role Phone None Reported, Pcp Primary Care Provider Unavail able Encounter Details Date Type Department Care Team (Late st Contact Info) Description 05/14/2024 Documentation Department of Cardiac Rehabilitation in [address] [address] Jyoti King C.Ph.T. Social History Tobacco Use Types Packs/Day Years Used Date Smoking Tobacco: Never Dental Answer Date Recorded Dental: Regular Dentist Unknown 12/04/19 24 Comments Unknown Sex and Gender Information Value Date Recorded Sex Assigned at Not on file Legal Sex Female 4:49 PM CHILDREN TEACHER Gender Identity Not on file Sexual Orientation Not on file documented as of this encounter Plan of Treatment Upcoming Encounters Date Type Department Care Team (Late st Contact Info) Description 06/05/2024 2:00 PM CHILDREN TEACHER Appointment Department of Cardiac Rehabilitation in [place] [address] [place] [phone] Keon Peace M.D. [address] [place] [address] 06/08/2024 2:00 PM CDT Appointment Department of Cardiac Rehabilitation in [place] [address] [place] [phone] Keon Peace M.D. [address] [place] [address] 06/10/2024 2:00 PM CDT Appointment Department of Cardiac Rehabilitation in [place], [place] [address] [place] [address] Keon Peace M.D. [address] [place] [address] 06/12/2024 2:00 PM CDT Appointment Department of Cardiac Rehabilitation in [place], [place] [address] [place] [address] Keon Peace M.D. [address] [place] [address] 06/15/2024 2:00 PM CDT Appointment Department of Cardiac Rehabilitation in [place] [address] [place] [address] Keon Peace M.D. [address] [place] [address] 06/17/2024 2:00 PM CDT Appointment Department of Cardiac Rehabilitation in [place] [address] [place] [address] Keon Peace M.D. [address] [place] [phone] documented as of this encounter Visit Diagnoses Not on filedocumented in this encounter Care Teams Mold Repair Technician Relationship Specialty Start Date End Date None Reported, Pcp PCP - General Family Medicine 02/28/24 documented as of this encounter
--- OUTSIDE RECORDS SUMMARY | 2024-06-03 16:37 | XMS_ITS | Encounter Summary ---
Author Organization [facility] Address [address] [place] [address] Care Team Providers Care Stiff Straw Hat Washer Name Role Phone None Reported, Pcp Primary Care Provider Unavail able Encounter Details Date Type Department Care Team (Latest Contact Info) Description 05/14/2024 Clinical Communication Department of Cardiac Rehabilitation in [place], [place] [address] [place] [address] Jyoti King C.Ph.T. Social History Tobacco Use Types Packs/Day Years Used Date Smoking Tobacco: Never Dental Answer Date Recorded Dental: Regular Dentist Unknown 12/04/19 24 Comments Unknown Sex and Gender Information Value Date Recorded Sex Assigned at Not on file Legal Sex Female 4:49 PM SIMULATION DEVELOPER Gender Identity Not on file Sexual Orientation Not on file documented as of this encounter Plan of Treatment Upcoming Encounters Date Type Department Care Team (Late st Contact Info) Description 06/05/2024 2:00 PM SIMULATION DEVELOPER Appointment Department of Cardiac Rehabilitation in [place] [address] [place] [phone] Keon Peace M.D. [address] [place] [phone] 06/08/2024 2:00 PM CDT Appointment Department of Cardiac Rehabilitation in [place], [place] [address] [place] [address] Keon Peace M.D. [address] [place] [phone] 06/10/2024 2:00 PM CDT Appointment Department of Cardiac Rehabilitation in [place], [place] [address] [place] [address] Keon Peace M.D. [address] [place] [address] 06/12/2024 2:00 PM CDT Appointment Department of Cardiac Rehabilitation in [place], [place] [address] [facility] [address] Keon Peace M.D. [address] [place] [address] 06/15/2024 2:00 PM CDT Appointment Department of Cardiac Rehabilitation in [place] [address] [place] [address] Keon Peace M.D. [address] [place] [address] 06/17/2024 2:00 PM CDT Appointment Department of Cardiac Rehabilitation in [place] [address] [place] [address] Keon Peace M.D. [address] [place] [phone] documented as of this encounter Visit Diagnoses Not on filedocumented in this encounter Care Teams Stiff Straw Hat Washer Relationship Specialty Start Date End Date None Reported, Pcp PCP - General Family Medicine 02/28/24 documented as of this encounter
--- OUTSIDE RECORDS SUMMARY | 2024-06-03 16:37 | XMS_ITS | Encounter Summary ---
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 [address] Phone: tel: fax: [facility] Region Referral ID Status Reason Start Date Expiration Date V isits Requested Visits Authorized [id number] Authorized 02/20/2024 02/19/2025 45 45 Encounter Details Date Type Department Care Team (Latest Contact Info) Description 04/29/2024 1:45 PM HEAD SILVERMAN - 04/29/2024 11:59 PM HEAD SILVERMAN Hospital Encounter Department of Cardiac Rehabilitation in [place], [place] [address] [place] [phone] Keon Peace M.D. [address] [place] [phone] Replacement Aortic Valve Tissue; Coronary Arterial Bypass Graft Status Post Personal History Discharge Disposition: Home or Self Care Social History Tobacco Use Types Packs/Day Years Used Date Smoking Tobacco: Never Dental Answer Date Recorded Dental: Regular Dentist Unknown 12/04/19 24 Comments Unknown Sex and Gender Information Value Date Recorded Sex Assigned at Not on file Legal Sex Female 4:49 PM HEAD SILVERMAN Gender Identity Not on file Sexual Orientation Not on file documented as of this encounter Plan of Treatment Upcoming Encounters Date Type Department Care Team (Late st Contact Info) Description 06/05/2024 2:00 PM HEAD SILVERMAN Appointment Department of Cardiac Rehabilitation in [place] [address] [place] [address] Keon Peace M.D. [address] [place] [phone] 06/08/2024 2:00 PM CDT Appointment Department of Cardiac Rehabilitation in [place] [address] [place] [address] Keon Peace M.D. [address] [place] [phone] 06/10/2024 2:00 PM CDT Appointment Department of Cardiac Rehabilitation in [place] [address] [place] [address] Keon Peace M.D. [address] [place] [phone] 06/12/2024 2:00 PM CDT Appointment Department of Cardiac Rehabilitation in [place] [address] [place] [address] Keon Peace M.D. [address] [place] [phone] 06/15/2024 2:00 PM CDT Appointment Department of Cardiac Rehabilitation in [place], [place] [address] [facility] [place] [phone] Keon Peace M.D. [address] [place] [phone] 06/17/2024 2:00 PM CDT Appointment Department of Cardiac Rehabilitation in [place], [place] [address] [place] [phone] Keon Peace M.D. 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
--- OUTSIDE RECORDS SUMMARY | 2024-06-03 16:37 | XMS_ITS | Encounter Summary ---
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 [address] Phone: tel: fax: [facility] Region Referral ID Status Reason Start Date Expiration Date V isits Requested Visits Authorized [id number] Authorized 02/20/2024 02/19/2025 45 45 Encounter Details Date Type Department Care Team (Latest Contact Info) Description 04/22/2024 1:59 PM CLINICAL SUPERVISOR - 04/22/2024 11:59 PM CLINICAL SUPERVISOR Hospital Encounter Department of Cardiac Rehabilitation in [place], [place] [address] [place] [phone] Keon Peace M.D. [address] [place] [phone] Replacement Aortic Valve Tissue; Coronary Arterial Bypass Graft Status Post Personal History Discharge Disposition: Home or Self Care Social History Tobacco Use Types Packs/Day Years Used Date Smoking Tobacco: Never Dental Answer Date Recorded Dental: Regular Dentist Unknown 12/04/19 24 Comments Unknown Sex and Gender Information Value Date Recorded Sex Assigned at Not on file Legal Sex Female 4:49 PM CLINICAL SUPERVISOR Gender Identity Not on file Sexual Orientation Not on file documented as of this encounter Plan of Treatment Upcoming Encounters Date Type Department Care Team (Late st Contact Info) Description 06/05/2024 2:00 PM CLINICAL SUPERVISOR Appointment Department of Cardiac Rehabilitation in [place] [address] [place] [address] Keon Peace M.D. [address] [place] [phone] 06/08/2024 2:00 PM CDT Appointment Department of Cardiac Rehabilitation in [place] [address] [place] [address] Keon Peace M.D. [address] [place] [phone] 06/10/2024 2:00 PM CDT Appointment Department of Cardiac Rehabilitation in [place] [address] [place] [address] Keon Peace M.D. [address] [place] [phone] 06/12/2024 2:00 PM CDT Appointment Department of Cardiac Rehabilitation in [place] [address] [place] [address] Keon Peace M.D. [address] [place] [phone] 06/15/2024 2:00 PM CDT Appointment Department of Cardiac Rehabilitation in [place], [place] [address] [facility] [phone] Keon Peace M.D. [address] [place] [phone] 06/17/2024 2:00 PM CDT Appointment Department of Cardiac Rehabilitation in [place], [place] [address] [place] [phone] Keon Peace M.D. 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
--- OUTSIDE RECORDS SUMMARY | 2024-06-03 16:37 | XMS_ITS | Encounter Summary ---
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 [address] Phone: tel: fax: [facility] Region Referral ID Status Reason Start Date Expiration Date V isits Requested Visits Authorized [id number] Authorized 02/20/2024 02/19/2025 45 45 Encounter Details Date Type Department Care Team (Latest Contact Info) Description 05/27/2024 1:52 PM GOLD BEATER - 05/27/2024 11:59 PM GOLD BEATER Hospital Encounter Department of Cardiac Rehabilitation in [place], [place] [address] [place] [phone] Keon Peace M.D. [address] [place] [phone] Replacement Aortic Valve Tissue; Coronary Arterial Bypass Graft Status Post Personal History Discharge Disposition: Home or Self Care Social History Tobacco Use Types Packs/Day Years Used Date Smoking Tobacco: Never Dental Answer Date Recorded Dental: Regular Dentist Unknown 12/04/19 24 Comments Unknown Sex and Gender Information Value Date Recorded Sex Assigned at Not on file Legal Sex Female 4:49 PM GOLD BEATER Gender Identity Not on file Sexual Orientation Not on file documented as of this encounter Plan of Treatment Upcoming Encounters Date Type Department Care Team (Late st Contact Info) Description 06/05/2024 2:00 PM GOLD BEATER Appointment Department of Cardiac Rehabilitation in [place] [address] [place] [address] Keon Peace M.D. [address] [place] [phone] 06/08/2024 2:00 PM CDT Appointment Department of Cardiac Rehabilitation in [place] [address] [place] [address] Keon Peace M.D. [address] [place] [phone] 06/10/2024 2:00 PM CDT Appointment Department of Cardiac Rehabilitation in [place] [address] [place] [phone] Keon Peace M.D. [address] [place] [phone] 06/12/2024 2:00 PM CDT Appointment Department of Cardiac Rehabilitation in [place] [address] [place] [address] Keon Peace M.D. [address] [place] [phone] 06/15/2024 2:00 PM CDT Appointment Department of Cardiac Rehabilitation in [place], [place] [address] [place] [phone] Keon Peace M.D. [address] [place] [phone] 06/17/2024 2:00 PM CDT Appointment Department of Cardiac Rehabilitation in [place], [place] [address] [place] [phone] Keon Peace M.D. 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
--- OUTSIDE RECORDS SUMMARY | 2024-06-03 16:37 | XMS_ITS | Clinical Summary ---
Author Organization [facility] Address [address] [place] [address] Care Team Providers Care Train Gate Attendant Name Role Phone None Reported, Pcp Primary Care Provider Unavail able Source Comments Patient records contain information from all sites at [facility]. For routine questions regarding patient records, call [phone] during business hours, M-F 8:00 AM - 5:00 PM Central Time. Record requests for emergency care only can be directed to [phone] at any time.[facility] Allergies Active Allergy Reactions Criticality Noted Date Comments Penicillin Itching 02/20/2024 Penicillins Hives only, no other systemic symptoms,Itching Low 06/12/2005 Medications No known medications Active Problems No known active problems Encounters Date Type Department Care Team Description 06/01/2024 1:49 PM [employer] - 06/01/2024 11:59 PM [employer] Hospital Encounter Department of Cardiac Rehabilitation in [address] [address] Keon Peace M.D. Replacement Aortic Valve Tissue; Coronary Arterial Bypass Graft Status Post Personal History Discharge Disposition: Home or Self Care 05/29/2024 1:51 PM [employer] - 05/29/2024 11:59 PM [employer] Hospital Encounter Department of Cardiac Rehabilitation in [address] [address] Keon Peace M.D. Replacement Aortic Valve Tissue; Coronary Arterial Bypass Graft Status Post Personal History Discharge Disposition: Home or Self Care 05/27/2024 1:52 PM [employer] - 05/27/2024 11:59 PM [employer] Hospital Encounter Department of Cardiac Rehabilitation in [address] [address] Keon Peace M.D. Replacement Aortic Valve Tissue; Coronary Arterial Bypass Graft Status Post Personal History Discharge Disposition: Home or Self Care 05/14/2024 Plan of Care Documentation Department of Cardiac Rehabilitation in [address] [address] 05/14/2024 Documentation Department of Cardiac Rehabilitation in [address] [address] Jyoti King C.Ph.T. 05/14/2024 Clinical Communication Department of Cardiac Rehabilitation in [address] [address] Jyoti King C.Ph.T. 05/01/2024 1:50 PM [employer] - 05/01/2024 11:59 PM [employer] Hospital Encounter Department of Cardiac Rehabilitation in [address] [address] Keon Peace M.D. Replacement Aortic Valve Tissue; Coronary Arterial Bypass Graft Status Post Personal History Discharge Disposition: Home or Self Care 04/29/2024 1:45 PM [employer] - 04/29/2024 11:59 PM [employer] Hospital Encounter Department of Cardiac Rehabilitation in [address] [address] Keon Peace M.D. Replacement Aortic Valve Tissue; Coronary Arterial Bypass Graft Status Post Personal History Discharge Disposition: Home or Self Care 04/27/2024 1:56 PM [employer] - 04/27/2024 11:59 PM [employer] Hospital Encounter Department of Cardiac Rehabilitation in [address] [address] Keon Peace M.D. Replacement Aortic Valve Tissue; Coronary Arterial Bypass Graft Status Post Personal History Discharge Disposition: Home or Self Care 04/24/2024 1:43 PM [employer] - 04/24/2024 11:59 PM [employer] Hospital Encounter Department of Cardiac Rehabilitation in [address] [address] Keon Peace M.D. Replacement Aortic Valve Tissue; Coronary Arterial Bypass Graft Status Post Personal History Discharge Disposition: Home or Self Care 04/22/2024 1:59 PM [employer] - 04/22/2024 11:59 PM [employer] Hospital Encounter Department of Cardiac Rehabilitation in [address] [address] Keon Peace M.D. Replacement Aortic Valve Tissue; Coronary Arterial Bypass Graft Status Post Personal History Discharge Disposition: Home or Self Care 04/20/2024 1:50 PM [employer] - 04/20/2024 11:59 PM [employer] Hospital Encounter Department of Cardiac Rehabilitation in [address] [address] Keon Peace M.D. Replacement Aortic Valve Tissue; Coronary Arterial Bypass Graft Status Post Personal History Discharge Disposition: Home or Self Care 04/17/2024 1:44 PM [employer] - 04/17/2024 11:59 PM [employer] Hospital Encounter Department of Cardiac Rehabilitation in [address] [address] Keon Peace M.D. Replacement Aortic Valve Tissue; Coronary Arterial Bypass Graft Status Post Personal History Discharge Disposition: Home or Self Care 04/16/2024 Plan of Care Documentation Department of Cardiac Rehabilitation in [address] [address] 04/15/2024 1:53 PM [employer] - 04/15/2024 11:59 PM [employer] Hospital Encounter Department of Cardiac Rehabilitation in [address] [address] Keon Peace M.D. Replacement Aortic Valve Tissue; Coronary Arterial Bypass Graft Status Post Personal History Discharge Disposition: Home or Self Care 04/13/2024 1:41 PM [employer] - 04/13/2024 11:59 PM [employer] Hospital Encounter Department of Cardiac Rehabilitation in [address] [address] Keon Peace M.D. Replacement Aortic Valve Tissue; Coronary Arterial Bypass Graft Status Post Personal History Discharge Disposition: Home or Self Care 04/10/2024 1:44 PM [employer] - 04/10/2024 11:59 PM [employer] Hospital Encounter Department of Cardiac Rehabilitation in [address] [address] Keon Peace M.D. Replacement Aortic Valve Tissue; Coronary Arterial Bypass Graft Status Post Personal History Discharge Disposition: Home or Self Care 04/08/2024 1:43 PM [employer] - 04/08/2024 11:59 PM [employer] Hospital Encounter Department of Cardiac Rehabilitation in [address] [address] Keon Peace M.D. Replacement Aortic Valve Tissue; Coronary Arterial Bypass Graft Status Post Personal History Discharge Disposition: Home or Self Care 04/06/2024 1:46 PM [employer] - 04/06/2024 11:59 PM [employer] Hospital Encounter Department of Cardiac Rehabilitation in [address] [address] Keon Peace M.D. Replacement Aortic Valve Tissue; Coronary Arterial Bypass Graft Status Post Personal History Discharge Disposition: Home or Self Care 04/03/2024 1:37 PM [employer] - 04/03/2024 11:59 PM [employer] Hospital Encounter Department of Cardiac Rehabilitation in [address] [address] Keon Peace M.D. Replacement Aortic Valve Tissue; Coronary Arterial Bypass Graft Status Post Personal History Discharge Disposition: Home or Self Care 03/30/2024 1:33 PM [employer] - 03/30/2024 11:59 PM [employer] Hospital Encounter Department of Cardiac Rehabilitation in [address] [address] Keon Peace M.D. Replacement Aortic Valve Tissue; Coronary Arterial Bypass Graft Status Post Personal History Discharge Disposition: Home or Self Care 03/27/2024 12:06 PM [employer] - 03/27/2024 11:59 PM [employer] Hospital Encounter Department of Cardiac Rehabilitation in [address] [address] Keon Peace M.D. Replacement Aortic Valve Tissue; Coronary Arterial Bypass Graft Status Post Personal History Discharge Disposition: Home or Self Care 03/23/2024 1:27 PM [employer] - 03/23/2024 11:59 PM [employer] Hospital Encounter Department of Cardiac Rehabilitation in [address] [address] Keon Peace M.D. Replacement Aortic Valve Tissue; Coronary Arterial Bypass Graft Status Post Personal History Discharge Disposition: Home or Self Care 03/20/2024 1:39 PM [employer] - 03/20/2024 11:59 PM [employer] Hospital Encounter Department of Cardiac Rehabilitation in [address] [address] Keon Peace M.D. Replacement Aortic Valve Tissue; Coronary Arterial Bypass Graft Status Post Personal History Discharge Disposition: Home or Self Care 03/19/2024 Plan of Care Documentation Department of Cardiac Rehabilitation in [address] [address] 03/18/2024 1:28 PM [employer] - 03/18/2024 11:59 PM [employer] Hospital Encounter Department of Cardiac Rehabilitation in [address] [address] Keon Peace M.D. Replacement Aortic Valve Tissue; Coronary Arterial Bypass Graft Status Post Personal History Discharge Disposition: Home or Self Care 03/16/2024 1:40 PM [employer] - 03/16/2024 11:59 PM [employer] Hospital Encounter Department of Cardiac Rehabilitation in [address] [address] Keon Peace M.D. Replacement Aortic Valve Tissue; Coronary Arterial Bypass Graft Status Post Personal History Discharge Disposition: Home or Self Care 03/13/2024 10:14 AM [employer] - 03/13/2024 11:59 PM [employer] Hospital Encounter Department of Cardiac Rehabilitation in [address] [address] Keon Peace M.D. Replacement Aortic Valve Tissue; Coronary Arterial Bypass Graft Status Post Personal History Discharge Disposition: Home or Self Care 03/11/2024 1:46 PM [employer] - 03/11/2024 11:59 PM [employer] Hospital Encounter Department of Cardiac Rehabilitation in [address] [address] Keon Peace M.D. Replacement Aortic Valve Tissue; Coronary Arterial Bypass Graft Status Post Personal History Discharge Disposition: Home or Self Care 03/09/2024 1:47 PM [employer] - 03/09/2024 11:59 PM [employer] Hospital Encounter Department of Cardiac Rehabilitation in [address] [address] Keon Peace M.D. Replacement Aortic Valve Tissue; Coronary Arterial Bypass Graft Status Post Personal History Discharge Disposition: Home or Self Care 03/06/2024 1:48 PM [employer] - 03/06/2024 11:59 PM [employer] Hospital Encounter Department of Cardiac Rehabilitation in [address] [address] Keon Peace M.D. Replacement Aortic Valve Tissue; Coronary Arterial Bypass Graft Status Post Personal History Discharge Disposition: Home or Self Care from Last 3 Months Social History Tobacco Use Types Packs/Day Years Used Date Smoking Tobacco: Never Dental Answer Date Recorded Dental: Regular Dentist Unknown 12/04/19 24 Comments Unknown Sex and Gender Information Value Date Recorded Sex Assigned at Not on file Legal Sex Female 4:49 PM [employer] Gender Identity Not on file Sexual Orientation Not on file Last Filed Vital Signs Vital Sign Reading Time Taken Comments Blood Pressure 141/70 02/28/2024 3:40 PM [employer] Pulse 80 02/28/2024 3:40 PM [employer] Temperature 36.5 C (97.7 F) 02/28/2024 3:40 PM [employer] Respiratory Rate 17 02/28/2024 3:40 PM [employer] Oxygen Saturation 95% 02/28/2024 3:40 PM [employer] Inhaled Oxygen Concentration - - Weight 65.2 kg (143 lb 11.2 oz) 02/28/2024 2:57 PM [employer] Height 162 cm (5' 3.78) 10/31/2012 4:13 PM CDT Body Mass Index - - Plan of Treatment Upcoming Encounters Date Type Department Care Team (Late st Contact Info) Description 06/05/2024 2:00 PM [employer] Appointment Department of Cardiac Rehabilitation in [address] [address] Keon Peace M.D. [address] [place] [phone] 06/08/2024 2:00 PM CDT Appointment Department of Cardiac Rehabilitation in [place] [address] [place] [address] Keon Peace M.D. [address] [place] [phone] 06/10/2024 2:00 PM CDT Appointment Department of Cardiac Rehabilitation in [place] [address] [place] [address] Keon Peace M.D. [address] [place] [phone] 06/12/2024 2:00 PM CDT Appointment Department of Cardiac Rehabilitation in [place] [address] [place] [address] Keon Peace M.D. [address] [place] [phone] 06/15/2024 2:00 PM CDT Appointment Department of Cardiac Rehabilitation in [address] [phone] Keon Peace M.D. [address] [place] [phone] 06/17/2024 2:00 PM CDT Appointment Department of Cardiac Rehabilitation in [place], [place] [address] [place] [phone] Keon Peace M.D. [address] [place] [phone] Health Maintenance Due Date Last Done Comments Hepatitis B Screening 1935 RSV vaccine - (32-36 weeks) or 60+ [...] on patient's age to complete this topic Insurance [facility] MEDICARE Care Teams Train Gate Attendant Relationship Specialty Start Date End Date None Reported, Pcp PCP - General Family Medicine 02/28/24
--- OUTSIDE RECORDS SUMMARY | 2024-06-03 16:37 | XMS_ITS | Clinical Summary ---
Author Organization [facility] Address [address] [place] [address] Care Team Providers Care Stationary Steam Engineer Name Role Phone Brian Garay MD Primary Care Provider [phone] [facility] [place] Unavailable [phone] Allergies Active Allergy Reactions Criticality Noted Date [...] by mouth once daily. 12/05/19 23 Active glipiZIDE (GLUCOTROL) 10 mg tabletIndications: Diabetes mellitus without complication (HC) Take 1 Tablet (10 mg) by mouth two times daily before meals. Resume Wednesday 11/15 as prescribed 11/15/19 24 Active pioglitazone (ACTOS) 15 mg tabletIndications: Diabetes mellitus without complication (HC) Take 1 Tablet (15 mg) by mouth once daily. Resume Wednesday 11/15 as prescribed 11/15/19 24 Active metFORMIN (GLUCOPHAGE) 1,000 mg tabletIndications: Diabetes mellitus without complication (HC) Take 1 Tablet (1,000 mg) by mouth two times daily with meals. Resume Friday 11/17 as prescribed 11/15/19 24 Active acetaminophen (TYLENOL) 325 mg tabletIndications: S/P AVR,S/P CABG x 3 Take 1-2 Tablets (325-650 mg) by mouth every 6 hours if needed for Headache or Pain. Max acetaminophen dose: 4000mg in 24 hrs. 01/10/20 24 Active furosemide (LASIX) 20 mg tabletIndications: S/P AVR,S/P CABG x 3 Take 1 Tablet (20 mg) by mouth once daily in the morning. 30 Tablet 4 11:01 AM CDT 01/12/20 24 Active potassium chloride (K-TAB) 10 mEq extended-release tabletIndications: S/P AVR,S/P CABG x 3 Take 1 Tablet (10 mEq) by mouth once daily with a meal. 30 Tablet 4 11:01 AM CDT 01/12/20 24 Active metoprolol succinate (TOPROL XL) 25 mg Sustained-Release tabletIndications: Paroxysmal A-fib (HC) Take one-half tablet (12.5 mg) by mouth once daily. 90 Tablet 4 11:01 AM CDT 01/11/20 24 Active atorvastatin (LIPITOR) 20 mg tabletIndications: Atherosclerosis of coronary artery, unspecified vessel or lesion type, unspecified whether angina present, unspecified whether ivanof bay or transplanted heart,S/P CABG x 3 Take 4 Tablets (80 mg) by mouth once daily. 06/03/19 25 Active irbesartan (AVAPRO) 150 mg tablet Take 0.5 Tablets (75 mg) by mouth once daily. 06/03/19 25 Active warfarin (COUMADIN) 2 mg tablet 04/23/19 25 Active amiodarone (CODARONE/PACERONE ) 100 mg tabletIndications: Paroxysmal atrial fibrillation (HC) Take 100 mg by mouth once daily. 90 Tablet 3 06/03/19 25 Active empagliflozin (Jardiance) 10 mg tabletIndications: Other heart failure (HC),Aortic valve stenosis, etiology of cardiac valve disease unspecified,Athero sclerosis of coronary artery, unspecified vessel or lesion type, unspecified whether angina present, unspecified whether ivanof bay or transplanted heart Take 1 Tablet (10 mg) by mouth once daily. Resume Wednesday 11/15 as prescribed 11/15/19 24 025 Disconti nued(*Pa tient states no longer taking) amiodarone (CORDARONE) 200 mg tabletIndications: Paroxysmal A-fib (HC) Take 2 Tablets (400 mg) by mouth two times daily for 7 days, THEN 1 Tablet (200 mg) two times daily for 7 days, THEN 1 Tablet (200 mg) once daily. 84 Tablet 1:53 PM CDT 01/05/20 24 025 Disconti nued(*Me d complete /Regimen complete /Level of care change) irbesartan (AVAPRO) 150 mg tablet Take 150 mg by mouth once daily. 025 Disconti nued(*Me dication adjustme nt) rivaroxaban (Xarelto) 20 mg tabletIndications: prevention of thromboembolism in paroxysmal atrial fib Take 1 Tablet (20 mg) by mouth once daily with evening meal. 90 Tablet 2 02/13/20 24 025 Disconti nued(*Pa tient states no longer taking) atorvastatin (LIPITOR) 20 mg tabletIndications: Atherosclerosis of coronary artery, unspecified vessel or lesion type, unspecified whether angina present, unspecified whether ivanof bay or transplanted heart,S/P CABG x 3 Take 1 Tablet (20 mg) by mouth once daily. 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/02/2024 Overview (01/02/2024): 01/01/2024 s/p Coronary artery bypass grafting x3 (LUGO -> LAD, SVG -> PDA, SVG - > OM1) Shock circulatory 01/02/2024 Severe aortic stenosis 2023 COLLAZO (dyspnea on exertion) 2023 Moderate mitral regurgitation 2023 Coronary atherosclerosis of unspecified type of vessel, ivanof bay or graft 06/15/2005 Overview (06/15/2005): s/p NARESH [...] Encounters Date Type Department Care Team Description 06/02/2024 10:46 AM ELEVATOR SERVICE TECHNICIAN - 06/02/2024 11:59 PM ELEVATOR SERVICE TECHNICIAN Hospital Encounter [facility] [address] [facility] [place] [address] Atherosclerosis of coronary artery, unspecified vessel or lesion type, unspecified whether angina present, unspecified whether ivanof bay or transplanted heart; S/P CABG x 3; Paroxysmal atrial fibrillation (HC); Paroxysmal A-fib (HC); COLLAZO (dyspnea on exertion) 06/02/2024 10:00 AM ELEVATOR SERVICE TECHNICIAN Office Visit [facility] [address] [place] [address] [address] [place] [phone] Lindsey Corrales PA Follow Up (F/U. Needs clearance for colonoscopy, ekg prior. Pt states feeling good, no recent or current cardiac symptoms. Questions about meds and if she can stop taking some) 06/02/2024 Orders [facility] [address] [facility] [address] [place] [phone] Lindsey Corrales PA <No scans attached> 06/02/2024 Orders Only [facility] [address] [place] [address] [address] [place] [phone] Case, RAMON Jung <No scans attached> 06/02/2024 Travel from Last 3 Months Immunizations Name Administration Dates Next Due INFLUENZA, [...] on file Legal Sex Female 6:12 AM ELEVATOR SERVICE TECHNICIAN Gender Identity Not on file Sexual Orientation Not on file Obstetrics History Last Filed Vital Signs Vital Sign Reading Time Taken Comments Blood Pressure 160/76 06/02/2024 10:03 AM ELEVATOR SERVICE TECHNICIAN Pulse 75 06/02/2024 10:03 AM ELEVATOR SERVICE TECHNICIAN Temperature 36.1 C (97 F) 02/10/2024 8:19 AM ELEVATOR SERVICE TECHNICIAN Respiratory Rate 16 02/10/2024 8:19 AM ELEVATOR SERVICE TECHNICIAN Oxygen Saturation 95% 06/02/2024 10:03 AM ELEVATOR SERVICE TECHNICIAN Inhaled Oxygen Concentration - - Weight 62.4 kg (137 lb 9.6 oz) 06/02/2024 10:03 AM ELEVATOR SERVICE TECHNICIAN Height 162.6 cm (5' 4) 06/02/2024 10:03 AM ELEVATOR SERVICE TECHNICIAN Body Mass Index 23.62 06/02/2024 10:03 AM ELEVATOR SERVICE TECHNICIAN Plan of Treatment Upcoming Encounters Date Type Department Care Team (Late st Contact Info) Description 06/22/2024 2:30 PM CDT Office Visit [facility] [address] [place] [address] [address] [place] [address] [place] [address] [facility] [address] [place] [address] Health Maintenance Due Date Last Done Comments [...] wt on same day) for age 18+ 06/02/2025 06/02/2024, 02/12/2024 Tetanus booster 02/21/2032 02/20/2022, 07/31, 07/19/2006, Additional history exists Pneumococcal series for age 50+ Completed 5, 08/04/2007 Zoster (shingles) series for age 50+ Completed 12/15/2018, 10/14/2018 Tdap Completed 02/20/2022, 08/28/2011 Medical Devices Implanted Type Area Software Qa System Specialist Device Identifier Shelf Expiration Date Model / Serial / Lot Valve Aortic 19mm Inspirus Resilia Tissue - [id number] Implanted:Qty: 1 on 01/01/2024 by Dahiana Ventura MD at [facility] N/A: Aortic Valve [employer] Bianca [id number] 11/12/2026 [id number] / [id number] / Description:No rinse per man ufacturer's instructions. Procedures Procedure Name Priority Date/Time Associated Diagnosis Comments T4,FREE Today 06/02/2024 11:10 AM ELEVATOR SERVICE TECHNICIAN Atherosclerosis of coronary artery, unspecified vessel or lesion type, unspecified whether angina present, unspecified whether ivanof bay or transplanted heart S/P CABG x 3 Paroxysmal atrial fibrillation (HC) Paroxysmal A-fib (HC) COLLAZO (dyspnea on exertion) PRO-BNP Today 06/02/2024 11:10 AM ELEVATOR SERVICE TECHNICIAN COLLAZO (dyspnea on exertion) COMP METABOLIC PANEL Today 06/02/2024 11:10 AM ELEVATOR SERVICE TECHNICIAN Atherosclerosis of coronary artery, unspecified vessel or lesion type, unspecified whether angina present, unspecified whether ivanof bay or transplanted heart S/P CABG x 3 Paroxysmal atrial fibrillation (HC) Paroxysmal A-fib (HC) CBC W PLT NO DIFF Today 06/02/2024 11: 10 AM ELEVATOR SERVICE TECHNICIAN Atherosclerosis of coronary artery, unspecified vessel or lesion type, unspecified whether angina present, unspecified whether ivanof bay or transplanted heart S/P CABG x 3 Paroxysmal atrial fibrillation (HC) Paroxysmal A-fib (HC) TSH Today 06/02/2024 11:10 AM ELEVATOR SERVICE TECHNICIAN Atherosclerosis of coronary artery, unspecified vessel or lesion type, unspecified whether angina present, unspecified whether ivanof bay or transplanted heart S/P CABG x 3 Paroxysmal atrial fibrillation (HC) Paroxysmal A-fib (HC) EKG 12 LEAD Today 06/02/2024 9:51 AM ELEVATOR SERVICE TECHNICIAN Paroxysmal atrial fibrillation (HC) from Last 3 Months Results * (ABNORMAL) TSH (06/02/2024 11:10 AM ELEVATOR SERVICE TECHNICIAN) TSH 4.77(H) 0.27 - 4.20 uIU/mL 06/02/2024 12:05 PM ELEVATOR SERVICE TECHNICIAN [facility] Blood BLOOD SPECIMEN / Unknown Venipuncture / Unknown 06/02/2024 11:10 AM ELEVATOR SERVICE TECHNICIAN 06/02/2024 11:11 AM ELEVATOR SERVICE TECHNICIAN Narrative [facility] - 06/02/2024 12:05 PM ELEVATOR SERVICE TECHNICIAN In Adults, TSH values between 5.00 and 10.00 uIU/ml do not necessarily indicate the presence of Hypothyroidism. Correlation with clinical findings such as presence of goiter and/or Thyroperoxidase (TPO) Antibody may be helpful. For more information please refer to ANABELLA 2004; 291: 228-238. us Lindsey NAVARRO CHEMISTRY Final Res ult [facility] [address] [place] [address] * (ABNORMAL) CBC W PLT NO DIFF (06/02/2024 11:10 AM ELEVATOR SERVICE TECHNICIAN) WHITE BLOOD COUNT 5.7 4.5 - 11.0 thou/cu mm 06/02/2024 11:24 AM ELEVATOR SERVICE TECHNICIAN [facility] RED BLOOD COUNT 4.23 4.00 - 5.20 mil/cu mm 06/02/2024 11:24 AM [facility] HEMOGLOBIN 11.7(L) 12.0 - 16.0 g/dL 06/02/2024 11:24 AM [facility] HEMATOCRIT 36.6 33.0 - 51.0 % 06/02/2024 11:24 AM [facility] MCV 87 80 - 100 fL 06/02/2024 11:24 AM [facility] MCH 27.7 26.0 - 34.0 pg 06/02/2024 11:24 AM [facility] MCHC 32.0 32.0 - 36.0 g/dL 06/02/2024 11:24 AM [facility] RDW 18.6(H) 11.5 - 15.5 % 06/02/2024 11:24 AM [facility] PLATELET COUNT 272 140 - 440 thou/cu mm 06/02/2024 11:24 AM [facility] MPV 9.6 6.5 - 11.0 fL 06/02/2024 11:24 AM [facility] NRBC 0.0 % 06/02/2024 11:24 AM [facility] ABS NRBC 0.0 thou /cu mm 06/02/2024 11:24 AM [facility] Blood BLOOD SPECIMEN / Unknown Venipuncture / Unknown 06/02/2024 11:10 AM ELEVATOR SERVICE TECHNICIAN 06/02/2024 11:11 AM ELEVATOR SERVICE TECHNICIAN Narrative [facility] - 06/02/2024 11:24 AM ELEVATOR SERVICE TECHNICIAN This procedure was originally ordered at [facility]. us Lindsey NAVAROR HEMATOLOGY Final Res ult [facility] [address] [place] [address] * T4,FREE (06/02/2024 11:10 AM ELEVATOR SERVICE TECHNICIAN) Pathologist [facility] T4,FREE 1.62 0.93 - 1.70 ng/dL 06/02/2024 7:50 PM ELEVATOR SERVICE TECHNICIAN [facility] Blood BLOOD SPECIMEN / Unknown Venipuncture / Unknown 06/02/2024 11:10 AM ELEVATOR SERVICE TECHNICIAN 06/02/2024 11:11 AM ELEVATOR SERVICE TECHNICIAN Lindsey NAVARRO CHEMISTRY Final Res ult [facility] [address] [place] [address], [place] * (ABNORMAL) PRO-BNP (06/02/2024 11:10 AM ELEVATOR SERVICE TECHNICIAN) PRO-BNP 1,516(H) <450 pg/mL 06/02/2024 12:10 PM ELEVATOR SERVICE TECHNICIAN [facility] Blood BLOOD SPECIMEN / Unknown Venipuncture / Unknown 06/02/2024 11:10 AM ELEVATOR SERVICE TECHNICIAN 06/02/2024 11:11 AM ELEVATOR SERVICE TECHNICIAN Narrative [facility] - 06/02/2024 12:10 PM ELEVATOR SERVICE TECHNICIAN The following cut-points have been suggested for the use of proBNP for the diagnostic evaluation of heart failure (HF) in patient with acute dyspnea. Patients with eGFR >= 60 Diagnosis (rule in CHF) <50 Years Old 450 pg/mL 50 - 75 Years Old 900 pg/mL >75 Years Old 1800 pg/mL Exclusion (rule out CHF) Age Independent 300 pg/mL A cutoff of 1200 pg/mL for patients with an eGFR <60 yields a diagnostic sensitivity of 89% and specificity of 72% for acute congestive heart failure. Lindsey NAVARRO SEND OUTS Final Res ult [place] [id number] [place] [address] * (ABNORMAL) COMP METABOLIC PANEL (06/02/2024 11:10 AM ELEVATOR SERVICE TECHNICIAN) SODIUM 139 136 - 145 mmol/L 06/02/2024 12:05 PM [facility] POTASSIUM 3.3(L) 3.5 - 5.1 mmol/L 06/02/2024 12:05 PM [facility] CHLORIDE 102 98 - 107 mmol/L 06/02/2024 12:05 PM [facility] CO2,TOTAL 26 22 - 29 mmol/L 06/02/2024 12:05 PM [facility] ANION GAP 11 5 - 18 06/02/2024 12:05 PM [facility] GLUCOSE 152(H) 70 - 99 mg/dL 06/02/2024 12:05 PM [facility] CALCIUM 9.1 8.8 - 10.4 mg/dL 06/02/2024 12:05 PM [facility] Comment: Reference ranges for this test were updated on 02/04/2024 to reflect our healthy population more accurately. Reference range changes are not retroactively applied to results, but previous results using the same methodology can be interpreted in the context of the new reference range. BUN 14 8 - 23 mg/dL 06/02/2024 12:05 PM [facility] CREATININE 0.71 0.50 - 0.90 mg/dL 06/02/2024 12:05 PM [facility] BUN/CREAT RATIO 20 10 - 20 12:05 PM [facility] eGFR 83(L) >90 mL/min/1.7 3m2 06/02/2024 12:05 PM [facility] Comment:As of 2021, eG FR is calculated by the CKD-EPI creatinine equation without race adjustment. eGFR can be influenced by muscle mass, exercise, and diet. The reported eGFR is an estimation only and is only applicable if the renal function is stable. ALBUMIN 3.8(L) 4.0 - 4.9 g/dL 06/02/2024 12:05 PM [facility] PROTEIN,TOTAL 7.4 6.0 - 8.0 g/dL 06/02/2024 12:05 PM [facility] BILIRUBIN,TOTAL 0.2 0.0 - 1.2 mg/dL 06/02/2024 12:05 PM ELEVATOR SERVICE TECHNICIAN [facility] ALK PHOSPHATASE 66 35 - 104 IU/L 06/02/2024 12:05 PM ELEVATOR SERVICE TECHNICIAN [facility] ALT (SGPT) 30 10 - 35 IU/L 06/02/2024 12:05 PM ELEVATOR SERVICE TECHNICIAN [facility] AST (SGOT) 44(H) 10 - 35 IU/L 06/02/2024 12:05 PM ELEVATOR SERVICE TECHNICIAN [facility] Blood BLOOD SPECIMEN / Unknown Venipuncture / Unknown 06/02/2024 11:10 AM ELEVATOR SERVICE TECHNICIAN 06/02/2024 11:11 AM ELEVATOR SERVICE TECHNICIAN Lindsey NAVARRO CHEMISTRY Final Res ult [facility] [address] [place] [address] from Last 3 Months Insurance MEDICARE PART A HB ONLY [employer] [place] [place] BLUE MR PB ONLY MEDICARE PART B HB ONLY [employer] [place] [place] BLUE HB ONLY HC [employer] PPS Advance Directives * Full Code [...] 9:05 AM 06/14/2005 11:46 AM Care Teams Stationary Steam Engineer Relationship Specialty Start Date End Date Jarrod, Brian C, MD PCP - General 08/19/[address] [address] 01/11/24
--- OUTSIDE RECORDS SUMMARY | 2024-06-03 16:37 | XMS_ITS | Encounter Summary ---
Author Organization [facility] Address [address] [place] [address] Care Team Providers Care Case Folder Name Role Phone None Reported, Pcp Primary Care Provider Unavail able Reason for Referral * Outpatient (Routine) - Authorized Specialty Diagnoses / Procedures Referred By Godwinac t Referred To Contact Diagnoses Replacement Aortic Valve Tissue Coronary Arterial Bypass Graft Status Post Personal History Procedures Cardiac Rehab Program [place] [address] Phone: tel: fax: [facility] Region Referral ID Status Reason Start Date Expiration Date V isits Requested Visits Authorized [id number] Authorized 02/20/2024 02/19/2025 45 45 GER BANQUET Reason for Visit * Outpatient (Routine) - Authorized Specialty Diagnoses / Procedures Referred By Jordan t Referred To Contact Diagnoses Replacement Aortic Valve Tissue Coronary Arterial Bypass Graft Status Post Personal History Procedures Cardiac Rehab Program [place] [address] Phone: tel: fax: [facility] Region Referral ID Status Reason Start Date Expiration Date V isits Requested Visits Authorized [id number] Authorized 02/20/2024 02/19/2025 45 45 Encounter Details Date Type Department Care Team (Latest Contact Info) Description 04/24/2024 1:43 PM MANAGER BANQUET - 04/24/2024 11:59 PM MANAGER BANQUET Hospital Encounter Department of Cardiac Rehabilitation in [place], [place] [address] [place] [phone] Keon Peace M.D. [address] [place] [phone] Replacement Aortic Valve Tissue; Coronary Arterial Bypass Graft Status Post Personal History Discharge Disposition: Home or Self Care Social History Tobacco Use Types Packs/Day Years Used Date Smoking Tobacco: Never Dental Answer Date Recorded Dental: Regular Dentist Unknown 12/04/19 24 Comments Unknown Sex and Gender Information Value Date Recorded Sex Assigned at Not on file Legal Sex Female 4:49 PM MANAGER BANQUET Gender Identity Not on file Sexual Orientation Not on file documented as of this encounter Plan of Treatment Upcoming Encounters Date Type Department Care Team (Late st Contact Info) Description 06/05/2024 2:00 PM MANAGER BANQUET Appointment Department of Cardiac Rehabilitation in [place] [address] [place] [address] Keon Peace M.D. [address] [place] [phone] 06/08/2024 2:00 PM CDT Appointment Department of Cardiac Rehabilitation in [place] [address] [place] [address] Keon Peace M.D. [address] [place] [phone] 06/10/2024 2:00 PM CDT Appointment Department of Cardiac Rehabilitation in [place] [address] [place] [address] Keon Peace M.D. [address] [place] [phone] 06/12/2024 2:00 PM CDT Appointment Department of Cardiac Rehabilitation in [place] [address] [place] [address] Keon Peace M.D. [address] [place] [phone] 06/15/2024 2:00 PM CDT Appointment Department of Cardiac Rehabilitation in [place], [place] [address] [facility] [place] [phone] Keon Peace M.D. [address] [place] [phone] 06/17/2024 2:00 PM CDT Appointment Department of Cardiac Rehabilitation in [place], [place] [address] [place] [phone] Keon Peace M.D. [address] [place] [phone] Scheduled Orders Name Type Priority Associated Diagnoses Orde r Schedule Cardiac Rehab Program Card Rehab Routine Replacement Aortic Valve Tissue Coronary Arterial Bypass Graft Status Post Personal History Once for 1 Occurrences starting 04/24/2024 until 04/24/2024 documented as of this encounter Visit Diagnoses Diagnosis Replacement Aortic Valve Tissue Coronary Arterial Bypass Graft Status Post Personal History documented in this encounter Care Teams Case Folder Relationship Specialty Start Date End Date None Reported, Pcp PCP - General Family Medicine 02/28/24 documented as of this encounter
--- OUTSIDE RECORDS SUMMARY | 2024-06-03 16:37 | XMS_ITS | Encounter Summary ---
Author Organization [facility] Address [address] [place] [address] Care Team Providers Care Morning Show Newscast Producer Name Role Phone None Reported, Pcp Primary Care Provider Unavail able Reason for Referral * Outpatient (Routine) - Authorized Specialty Diagnoses / Procedures Referred By Godwinac t Referred To Contact Diagnoses Replacement Aortic Valve Tissue Coronary Arterial Bypass Graft Status Post Personal History Procedures Cardiac Rehab [place] [address] Phone: tel: fax: [facility] Region Referral ID Status Reason Start Date Expiration Date V isits Requested Visits Authorized [id number] Authorized 02/20/2024 02/19/2025 45 45 L MACHINIST Reason for Visit * Outpatient (Routine) - Authorized Specialty Diagnoses / Procedures Referred By Jordan rubio Referred To Contact Diagnoses Replacement Aortic Valve Tissue Coronary Arterial Bypass Graft Status Post Personal History Procedures Cardiac Rehab Program [place] [address] Phone: tel: fax: [facility] Region Referral ID Status Reason Start Date Expiration Date V isits Requested Visits Authorized [id number] Authorized 02/20/2024 02/19/2025 45 45 Encounter Details Date Type Department Care Team (Latest Contact Info) Description 04/20/2024 1:50 PM METAL MACHINIST - 04/20/2024 11:59 PM METAL MACHINIST Hospital Encounter Department of Cardiac Rehabilitation in [place], [place] [address] [place] [phone] Keon Peace M.D. [address] [place] [phone] Replacement Aortic Valve Tissue; Coronary Arterial Bypass Graft Status Post Personal History Discharge Disposition: Home or Self Care Social History Tobacco Use Types Packs/Day Years Used Date Smoking Tobacco: Never Dental Answer Date Recorded Dental: Regular Dentist Unknown 12/04/19 24 Comments Unknown Sex and Gender Information Value Date Recorded Sex Assigned at Not on file Legal Sex Female 4:49 PM METAL MACHINIST Gender Identity Not on file Sexual Orientation Not on file documented as of this encounter Plan of Treatment Upcoming Encounters Date Type Department Care Team (Late st Contact Info) Description 06/05/2024 2:00 PM METAL MACHINIST Appointment Department of Cardiac Rehabilitation in [place] [address] [place] [address] Keon Peace M.D. [address] [place] [phone] 06/08/2024 2:00 PM CDT Appointment Department of Cardiac Rehabilitation in [place] [address] [place] [address] Keon Peace M.D. [address] [place] [phone] 06/10/2024 2:00 PM CDT Appointment Department of Cardiac Rehabilitation in [place] [address] [place] [phone] Keon Peace M.D. [address] [place] [phone] 06/12/2024 2:00 PM CDT Appointment Department of Cardiac Rehabilitation in [place] [address] [place] [address] Keon Peace M.D. [address] [place] [phone] 06/15/2024 2:00 PM CDT Appointment Department of Cardiac Rehabilitation in [place], [place] [address] [place] [facility] [place] [phone] Keon Peace M.D. [address] [place] [phone] 06/17/2024 2:00 PM CDT Appointment Department of Cardiac Rehabilitation in [place], [place] [address] [place] [phone] Keon Peace M.D. [address] [place] [phone] Scheduled Orders Name Type Priority Associated Diagnoses Orde r Schedule Cardiac Rehab Program Card Rehab Routine Replacement Aortic Valve Tissue Coronary Arterial Bypass Graft Status Post Personal History Once for 1 Occurrences starting 04/20/2024 until 04/20/2024 documented as of this encounter Visit Diagnoses Diagnosis Replacement Aortic Valve Tissue Coronary Arterial Bypass Graft Status Post Personal History documented in this encounter Care Teams Morning Show Newscast Producer Relationship Specialty Start Date End Date None Reported, Pcp PCP - General Family Medicine 02/28/24 documented as of this encounter
--- OUTSIDE RECORDS SUMMARY | 2024-06-03 16:37 | XMS_ITS | Encounter Summary ---
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 [address] Phone: tel: fax: [facility] Region Referral ID Status Reason Start Date Expiration Date V isits Requested Visits Authorized [id number] Authorized 02/20/2024 02/19/2025 45 45 Encounter Details Date Type Department Care Team (Latest Contact Info) Description 06/01/2024 1:49 PM [facility] - 06/01/2024 11:59 PM [facility] Hospital Encounter Department of Cardiac Rehabilitation in [place], [place] [address] [place] [phone] Keon Peace M.D. [address] [place] [phone] Replacement Aortic Valve Tissue; Coronary Arterial Bypass Graft Status Post Personal History Discharge Disposition: Home or Self Care Social History Tobacco Use Types Packs/Day Years Used Date Smoking Tobacco: Never Dental Answer Date Recorded Dental: Regular Dentist Unknown 12/04/19 24 Comments Unknown Sex and Gender Information Value Date Recorded Sex Assigned at Not on file Legal Sex Female 4:49 PM [facility]ER [facility] Gender Identity Not on file Sexual Orientation Not on file documented as of this encounter Plan of Treatment Upcoming Encounters Date Type Department Care Team (Late st Contact Info) Description 06/05/2024 2:00 PM [facility] Appointment Department of Cardiac Rehabilitation in [place] [address] [place] [address] Keon Peace M.D. [address] [place] [phone] 06/08/2024 2:00 PM CDT Appointment Department of Cardiac Rehabilitation in [place] [address] [place] [address] Keon Peace M.D. [address] [place] [phone] 06/10/2024 2:00 PM CDT Appointment Department of Cardiac Rehabilitation in [place] [address] [place] [address] Keon Peace M.D. [address] [place] [phone] 06/12/2024 2:00 PM CDT Appointment Department of Cardiac Rehabilitation in [place] [address] [place] [address] Keon Peace M.D. [address] [place] [address] 06/15/2024 2:00 PM CDT Appointment Department of Cardiac Rehabilitation in [place], [place] [address] [place] [phone] Keon Peace M.D. [address] [place] [phone] 06/17/2024 2:00 PM CDT Appointment Department of Cardiac Rehabilitation in [place], [place] [address] [place] [phone] Keon Peace M.D. 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
--- OUTSIDE RECORDS SUMMARY | 2024-06-03 16:37 | XMS_ITS | Encounter Summary ---
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 [address] Phone: tel: fax: [facility] Region Referral ID Status Reason Start Date Expiration Date V isits Requested Visits Authorized [id number] Authorized 02/20/2024 02/19/2025 45 45 Encounter Details Date Type Department Care Team (Latest Contact Info) Description 05/01/2024 1:50 PM [facility] - 05/01/2024 11:59 PM [facility] Hospital Encounter Department of Cardiac Rehabilitation in [place], [place] [address] [place] [phone] Keon Peace M.D. [address] [place] [phone] Replacement Aortic Valve Tissue; Coronary Arterial Bypass Graft Status Post Personal History Discharge Disposition: Home or Self Care Social History Tobacco Use Types Packs/Day Years Used Date Smoking Tobacco: Never Dental Answer Date Recorded Dental: Regular Dentist Unknown 12/04/19 24 Comments Unknown Sex and Gender Information Value Date Recorded Sex Assigned at Not on file Legal Sex Female 4:49 PM [facility] Gender Identity Not on file Sexual Orientation Not on file documented as of this encounter Plan of Treatment Upcoming Encounters Date Type Department Care Team (Late st Contact Info) Description 06/05/2024 2:00 PM [facility] Appointment Department of Cardiac Rehabilitation in [place] [address] [place] [address] Keon Peace M.D. [address] [place] [phone] 06/08/2024 2:00 PM CDT Appointment Department of Cardiac Rehabilitation in [place] [address] [place] [address] Keon Peace M.D. [address] [place] [phone] 06/10/2024 2:00 PM CDT Appointment Department of Cardiac Rehabilitation in [place] [address] [place] [address] Keon Peace M.D. [address] [place] [phone] 06/12/2024 2:00 PM CDT Appointment Department of Cardiac Rehabilitation in [place] [address] [place] [address] Keon Peace M.D. [address] [place] [phone] 06/15/2024 2:00 PM CDT Appointment Department of Cardiac Rehabilitation in [place], [place] [address] [facility] [phone] Keon Peace M.D. [address] [place] [phone] 06/17/2024 2:00 PM CDT Appointment Department of Cardiac Rehabilitation in [place], [place] [address] [place] [phone] Keon Peace M.D. 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
--- OUTSIDE RECORDS SUMMARY | 2024-06-03 16:37 | XMS_ITS | Encounter Summary ---
Author Organization 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 [address] Phone: tel: fax: [facility] Region Referral ID Status Reason Start Date Expiration Date V isits Requested Visits Authorized [id number] Authorized 02/20/2024 02/19/2025 45 45 Encounter Details Date Type Department Care Team (Latest Contact Info) Description 05/29/2024 1:51 PM [facility] [employer] - 05/29/2024 11:59 PM [facility] Hospital Encounter Department of Cardiac Rehabilitation in [place], [place] [address] [place] [phone] Keon Peace M.D. [address] [place] [phone] Replacement Aortic Valve Tissue; Coronary Arterial Bypass Graft Status Post Personal History Discharge Disposition: Home or Self Care Social History Tobacco Use Types Packs/Day Years Used Date Smoking Tobacco: Never Dental Answer Date Recorded Dental: Regular Dentist Unknown 12/04/19 24 Comments Unknown Sex and Gender Information Value Date Recorded Sex Assigned at Not on file Legal Sex Female 4:49 PM [employer] Gender Identity Not on file Sexual Orientation Not on file documented as of this encounter Plan of Treatment Upcoming Encounters Date Type Department Care Team (Late st Contact Info) Description 06/05/2024 2:00 PM [facility] [employer] Appointment Department of Cardiac Rehabilitation in [place] [address] [place] [address] Keon Peace M.D. [address] [place] [phone] 06/08/2024 2:00 PM CDT Appointment Department of Cardiac Rehabilitation in [place] [address] [place] [address] Keon Peace M.D. [address] [place] [phone] 06/10/2024 2:00 PM CDT Appointment Department of Cardiac Rehabilitation in [place] [address] [place] [address] Keon Peace M.D. [address] [place] [phone] 06/12/2024 2:00 PM CDT Appointment Department of Cardiac Rehabilitation in [place] [address] [place] [address] Keon Peace M.D. [address] [place] [phone] 06/15/2024 2:00 PM CDT Appointment Department of Cardiac Rehabilitation in [place], [place] [address] [place] [place] [phone] Keon Peace M.D. [address] [place] [phone] 06/17/2024 2:00 PM CDT Appointment Department of Cardiac Rehabilitation in [place], [place] [address] [place] [phone] Keon Peace M.D. 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
--- OUTSIDE RECORDS SUMMARY | 2024-06-03 16:37 | XMS_ITS | Encounter Summary ---
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 [address] Phone: tel: fax: [facility] Region Referral ID Status Reason Start Date Expiration Date V isits Requested Visits Authorized [id number] Authorized 02/20/2024 02/19/2025 45 45 Encounter Details Date Type Department Care Team (Latest Contact Info) Description 04/27/2024 1:56 PM [facility] [employer] - 04/27/2024 11:59 PM [facility] Hospital Encounter Department of Cardiac Rehabilitation in [place], [place] [address] [place] [phone] Keon Peace M.D. [address] [place] [phone] Replacement Aortic Valve Tissue; Coronary Arterial Bypass Graft Status Post Personal History Discharge Disposition: Home or Self Care Social History Tobacco Use Types Packs/Day Years Used Date Smoking Tobacco: Never Dental Answer Date Recorded Dental: Regular Dentist Unknown 12/04/19 24 Comments Unknown Sex and Gender Information Value Date Recorded Sex Assigned at Not on file Legal Sex Female 4:49 PM [facility]OCI[facility] Gender Identity Not on file Sexual Orientation Not on file documented as of this encounter Plan of Treatment Upcoming Encounters Date Type Department Care Team (Late st Contact Info) Description 06/05/2024 2:00 PM [facility] Appointment Department of Cardiac Rehabilitation in [place] [address] [place] [address] Keon Peace M.D. [address] [place] [phone] 06/08/2024 2:00 PM CDT Appointment Department of Cardiac Rehabilitation in [place] [address] [place] [address] Keon Peace M.D. [address] [place] [phone] 06/10/2024 2:00 PM CDT Appointment Department of Cardiac Rehabilitation in [place] [address] [place] [address] Keon Peace M.D. [address] [place] [phone] 06/12/2024 2:00 PM CDT Appointment Department of Cardiac Rehabilitation in [place] [address] [place] [address] Keon Peace M.D. [address] [place] [phone] 06/15/2024 2:00 PM CDT Appointment Department of Cardiac Rehabilitation in [place], [place] [address] [facility] [place] [phone] Keno Peace M.D. [address] [place] [phone] 06/17/2024 2:00 PM CDT Appointment Department of Cardiac Rehabilitation in [place], [place] [address] [place] [phone] Keon Peace M.D. 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
--- NOTE | 2024-06-03 16:55 | CRLHL7_ITS ---
For Patients: As a result of the Century Cures Act, medical imaging exams and procedure reports are released immediately into your electronic medical record. You may view this report before your referring provider. If you have questions, please contact your health care provider. INDICATION: FALL, HIT HEAD. TECHNIQUE: CT of the cervical spine was performed without intravenous contrast. COMPARISON: None. FINDINGS: Alignment: Normal. Vertebrae: Osteopenia. Vertebral bodies and posterior elements are intact without acute fracture. Moderate degenerative changes of the visualized spine. Posterior disc bulge at C6-7 with mild spinal canal narrowing. Extra-vertebral soft tissues: Normal. Visualized brain: Normal. Additional comment: Mild biapical pleural-parenchymal scarring. IMPRESSION: No acute displaced fracture or malalignment of the cervical spine. Posterior disc bulge at C6-7 with mild spinal canal narrowing. Please note that all CT scans at this facility use dose modulation, iterative reconstruction, and/or weight-based dosing when appropriate to reduce radiation dose to as low as reasonably achievable. Dictated by Cj Middleton MD @ 06/03/2024 5:45:19 PM (Electronically Signed)
[2024-06-03 17:30] LABS: Basophils Absolute Auto 0.05 K/uL (0.00-0.30); Basophils Percent Auto 0.7 % (0.0-3.0); Eosinophils Absolute Auto 0.15 K/uL (0.00-0.50); Eosinophils Percent Auto 2.1 % (0.0-7.0); Hemoglobin* 11.2 gm/dL (12.0-16.0); Immature Granulocytes Abs Auto 0.08 K/uL (0.00-0.30); Immature Granulocytes Pct Auto 1.1 %; Lymphocytes Percent Auto 12.4 % (20-44); Mean Corpuscular HGB Conc 31 gm/dL (32-36); Mean Corpuscular Hemoglobin 27 pg (26-34); Mean Corpuscular Volume 87 fL (80-100); Monocytes Percent Auto 8.8 % (0.0-11.0); Neutrophils Percent Auto 74.9 % (42.0-72.0); Platelet Count* 253 K/uL (140-440); RDW Coefficient of Variation % 18.4 % (11.5-15.5); Red Blood Count 4.15 m/uL (4.00-5.20); White Blood Count* 7.19 K/uL (4.50-11.00)
--- NOTE | 2024-06-03 17:37 | ED.GENADULT ---
HPI - General Adult General Date Seen: 06/03/24 Chief complaint: Head Injury/Pain Stated complaint: Fell, hit head--on warfarin Time Seen by Provider: 06/03/24 16:16 Source: patient Mode of arrival: ambulatory Limitations: no limitations History of Present Illness HPI narrative: patient is an 88-year-old female presenting to the emergency department today with her daughter For a fall. She is on blood thinners. patient states she is having episode lightheadedness, which she says seems to be on and off for her, Causing her to fall and hit the back her head. This happened around 15:45. Since then her daughter thinks the patient still seems lightheaded in the patient also states she feels slightly lightheaded. Was able to ambulate to her bed. Has a mild headache at this time. Denies any neck pain. Denies weakness, numbness, fevers, chills, vision changes, chest pain, shortness of breath, abdominal pain. Patient does states she has chronic diarrhea this been going on since April. Has been seen previously in this emergency department for it. Is scheduled to have a colonoscopy once cleared by Cardiology. Cardiology has seen her yesterday and a thorough exam showing no concerning findings in did place her on a Zio patch. She is currently wearing that Zio patch. no other concerns noted. 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 Related Data Home Medications ?Medication ?Instructions ?Recorded ?Confirmed blood glucose control, normal 11/29/21 05/13/24 (Accu-Chek SmartView Control Solution) lancets (Accu-Chek Fastclix Lancet 11/29/21 05/13/24 Drum) hegoopyj-dvg-PC 200 mcg-vit K 15 1 tab PO QDAY 11/29/21 05/13/24 mcg-lycope 150 udg-rpbccx-rgho tablet (Ocuvite Eye Plus Multi) omega 8-yam-xos-fish oil 1,200 mg 1 cap PO DAILY 11/29/21 05/13/24 (144 mg-216 mg) capsule (Fish Oil) empagliflozin 10 mg tablet 10 mg PO QAM 11/22/23 05/13/24 (Jardiance) nitroglycerin 0.4 mg sublingual 0.4 mg sublingual ONCE PRN 01/29/24 05/13/24 tablet (Nitrostat) irbesartan 75 mg tablet mg PO DAILY 05/06/24 05/13/24 Previous Rx's ?Medication ?Instructions ?Recorded blood sugar diagnostic (Accu-Chek #100 strips 11/09/22 SmartRentShare Test Strips) levothyroxine 75 mcg tablet 75 mcg PO QDAY #90 tabs 10/01/23 (Synthroid) furosemide 20 mg tablet 20 mg PO QAM #90 tabs 01/17/24 glipizide 10 mg tablet 10 mg PO BID #180 tabs 01/17/24 metoprolol succinate 25 mg 12.5 mg (1/2 x 25 mg) PO QDAY #45 01/17/24 tablet,extended release 24 hr tabs pioglitazone 15 mg tablet 15 mg PO QDAY #90 tabs 01/17/24 potassium chloride 10 mEq 10 meq PO QDAY #90 caps 01/17/24 capsule,extended release sertraline 100 mg tablet 100 mg PO QDAY #90 tabs 01/17/24 atorvastatin 20 mg tablet 20 mg PO QDAY #90 tabs 03/02/24 warfarin 2 mg tablet 3 mg PO QDAY #100 tabs 03/05/24 metformin 1,000 mg tablet 1,000 mg PO BID #180 tabs 03/09/24 alendronate 70 mg tablet 70 mg PO QWEEK #12 tabs 04/21/24 amiodarone 200 mg tablet 200 mg PO DAILY #30 tabs 05/12/24 metronidazole 500 mg tablet 500 mg PO Q8H #30 tabs 05/13/24 Allergies Allergy/AdvReac Type Severity Reaction Status Date / Time penicillin V Allergy Mild Hands and Verified 06/03/24 16:29 feet itchy,red Review of Systems Status of ROS: Reports: 10 or more systems reviewed and unremarkable except as noted in History and below [facility] Medical History ASCVD (arteriosclerotic cardiovascular disease) ?I25.10 - Atherosclerotic heart disease of [place] coronary artery without angina pectoris (ICD-10) Diabetes 1.5, managed as type 2 ?E13.9 - Other specified diabetes mellitus without complications (ICD-10) Hypertension ?I10 - Essential (primary) hypertension (ICD-10) Hyperlipidemia (08/16/09) ?E78.5 - Hyperlipidemia, unspecified (ICD-10) Hypothyroidism ?E03.9 - Hypothyroidism, unspecified (ICD-10) History of atrial fibrillation ?Z86.79 - Personal history of other diseases of the circulatory system (ICD-10) Asthma (08/16/09) ?J45.909 - Unspecified asthma, uncomplicated (ICD-10) Anxiety ?F41.9 - Anxiety disorder, unspecified (ICD-10) Osteoporosis ?M81.0 - Age-related osteoporosis without current pathological fracture (ICD-10) Thoracic compression fracture ?S22.000A - Wedge compression fracture of unspecified thoracic vertebra, initial encounter for closed fracture (ICD-10) Stress incontinence ?N39.3 - Stress incontinence (female) (male) (ICD-10) Diverticulosis (05/27/12) ?K57.90 - Diverticulosis of intestine, part unspecified, without perforation or abscess without bleeding (ICD-10) Adenomatous polyp of colon ?D12.6 - Benign neoplasm of colon, unspecified (ICD-10) Aortic stenosis ?I35.0 - Nonrheumatic aortic (valve) stenosis (ICD-10) Trochanteric bursitis ?M70.60 - Trochanteric bursitis, unspecified hip (ICD-10) Mass of right kidney ?N28.89 - Other specified disorders of kidney and ureter (ICD-10) Osteopenia (12/22/12) ?M85.80 - Other specified disorders of bone density and structure, unspecified site (ICD-10) Back pain ?M54.9 - Dorsalgia, unspecified (ICD-10) Fracture, humerus ?S42.309A - Unspecified fracture of shaft of humerus, unspecified arm, initial encounter for closed fracture (ICD-10) Surgical History Status post aortic valve replacement ?Z95.2 - Presence of prosthetic heart valve (ICD-10) Status post three vessel coronary artery bypass ?Z95.1 - Presence of aortocoronary bypass graft (ICD-10) Status post nasal surgery (08/16/09) ?Z98.890 - Other specified postprocedural states (ICD-10) Status post cataract extraction ?Z98.49 - Cataract extraction status, unspecified eye (ICD-10) Status post appendectomy (08/16/09) ?Z90.49 - Acquired absence of other specified parts of digestive tract (ICD-10) History of coronary artery stent placement (08/16/09) ?Z95.5 - Presence of coronary angioplasty implant and graft (ICD-10) History of colonoscopy ?Z98.890 - Other specified postprocedural states (ICD-10) Family History Family/Other Colon cancer Social History What is your current living situation?: I presently have a place to live In the past 12 months, utilities in danger of being shut off: no In past 12 months, lack of transportation kept you from medical appts, meetings, work, or getting things needed for daily living: no In the past 12 mos, have been you worried that your food would run out before you had money to buy more?: never true In the past 12 mos, the food you bought just didn't last and you didn't have money to buy more?: never true Smoking Status: Never smoker Do you use any of these nicotine containing products: None Second hand tobacco smoke exposure: No How often do you have a drink containing alcohol: never How often do you have six or more drinks on one occasion: Never AUDIT-C Alcohol total score: 0 Non-prescribed substance use: denies use How often does anyone, including family, friends and others, physically hurt you: never How often does anyone, including family, friends and others, insult or talk down to you: never How often does anyone, including family, friends and others, threaten you with harm: never How often does anyone, including family, friends and others, scream or curse at you: never service: No Exam Narrative: Exam Narrative: Const: Well-nourished, Well-developed, in No distress Eyes: PERRL, no conjunctival injection, and symmetrical lids HENT: Atraumatic external nose and ears. Moist mucous membranes. Neck: Symmetric, trachea midline, No thyromegaly. CVS: RRR, No murmurs or gallops. Peripheral pulses 2+ and equal in all extremities RESP: Unlabored respiratory effort. Clear to auscultation bilaterally. GI: Nontender/Nondistended, No rebound or guarding. MSK:Extremities w/o deformity, Normal Active ROM, no midline spinal tenderness. Skin: Warm, Dry. No rashes or lesions. Neuro: Normal Muscle tone, No focal neurological deficits. Psych: Awake, Alert, & Oriented x3. Appropriate mood and affect. Const: Vital Signs, click to edit/add: Vital Signs - 24 hr 06/03/24 16:31 Temperature 98.1 F Pulse Rate [Pulse Oximeter] 72 Respiratory Rate 18 Blood Pressure [Ri ght Upper Arm] 184/80 H Pulse Oximetry 95 Oxygen Delivery Me thod Room Air Course Vital Signs Vital signs: Initial Vital Signs Temperature 98.1 F 06/03/24 16:31 Temperature Source Temporal Artery Scan 06/03/24 16:31 Pulse Rate 72 06/03/24 16:31 Pulse Rhythm Regular 06/03/24 16:31 Respiratory Rate 18 06/03/24 16:31 Blood Pressure 184/80 H 06/03/24 16:31 Blood Pressure Mean 114 H 06/03/24 16:31 Blood Pressure Position Sitting 06/03/24 16:31 Pulse Oximetry 95 06/03/24 16:31 Oxygen Delivery Method Room Air 06/03/24 16:31 Vital Signs Temperature 98.1 F 06/03/24 16:31 Pulse Rate 72 06/03/24 16:31 Respiratory Rate 18 06/03/24 16:31 Blood Pressure 184/80 H 06/03/24 16:31 Pulse Oximetry 95 06/03/24 16:31 Oxygen Delivery Method Room Air 06/03/24 16:31 Temperature 98.1 F 06/03/24 16:31 Pulse Rate 72 06/03/24 16:31 Respiratory Rate 18 06/03/24 16:31 Blood Pressure 184/80 H 06/03/24 16:31 Pulse Oximetry 95 06/03/24 16:31 Oxygen Delivery Method Room Air 06/03/24 16:31 Medical Decision Making MDM Narrative Medical decision making narrative: Patient is a 88-year-old female presenting to the emergency department after a fall. She does have chronic lightheadedness that seems to come and go and have thorough cardiology workup yesterday a while currently ring 0 patch. Despite this I will work her up again for the lightheadedness including CBC, BMP, magnesium, troponin, EKG. She is currently taking warfarin for AFib. Will check INR. vital signs are good and shows no signs of hypotension at this time. She is actually hypertensive. Will do CT scan of the head and cervical spine. CT scans reviewed by myself and the radiologist showing no acute concerning abnormalities. EKG shows a left bundle branch block. Previous EKGs appears similar with the block not quite as pronounced and previously read as left ventricular hypertrophy with repolarization abnormality. These EKGs were done prior to her CABG. Lab work returned showing no concerning abnormalities other than a slightly low potassium. She does take potassium at home mother will replenish and here in the emergency department. He she is feeling well at this time or. Considering she has this lightheadedness frequently I do not believe is necessary to repeat troponin. Also family states she had a thorough cardiology workup yesterday by her client relationship consultant. Patient would like to leave. As I do feel comfortable discharging her at this time. Lab Data Labs: Lab Results 06/03/24 Range/Units 17:22 WBC 7.19 (4.50-11.00) K/uL RBC 4.15 (4.00-5.20) m/uL Hgb 11.2 L (12.0-16.0) gm/dL Hct 36.0 (33.0-51.0) % MCV 87 (80-100) fL MCH 27 (26-34) pg MCHC 31 L (32-36) gm/dL RDW Coeff of Sher 18.4 H (11.5-15.5) % Plt Count 253 (140-440) K/uL Neut % (Auto) 74.9 H (42.0-72.0) % Lymph % (Auto) 12.4 L (20-44) % [place] % (Auto) 8.8 (0.0-11.0) % Eos % (Auto) 2.1 (0.0-7.0) % Baso % (Auto) 0.7 (0.0-3.0) % Neut # (Auto) 5.40 (1.7-7.0) K/uL Lymph # (Auto) 0.90 (0.90-2.90) K/uL [place] # (Auto) 0.60 (0.00-0.90) K/UL Eos # (Auto) 0.15 (0.00-0.50) K/uL Baso # (Auto) 0.05 (0.00-0.30) K/uL Abs Immat Gran (auto) 0.08 (0.00-0.30) K/uL Imm/Tot Granulo (auto) 1.1 % INR 2.49 H (0.91-1.10) Sodium 139 (135-149) mmol/L Potassium 3.1 L (3.6-5.1) mmol/L Chloride 101 (96-114) mmol/L Carbon Dioxide 26 (20-32) mmol/L Anion Gap 12 (7-15) mEq/L BUN 18 (7-30) mg/dL Creatinine 0.7 (0.5-1.5) mg/dL Estimated Creat Clear 31.94 Estimated GFR 84 ml/min Glucose 221 H (60-115) mg/dL Calcium 8.8 (8.4-10.6) mg/dL Magnesium 1.6 (1.5-2.6) mg/dL Troponin I 0.01 (0.01-0.04) ng/mL Imaging Data CT scan head: Attestation: I have reviewed the pertinent imaging results. Radiologist's impression: No acute intracranial noncontrast CT findings. Please note that all CT scans at this facility use dose modulation, iterative reconstruction, and/or weight-based dosing when appropriate to reduce radiation dose to as low as reasonably achievable. Dictated by Marek Sylvester MD @ 06/03/2024 4:49:[address] scan cervical spine: Attestation: I have reviewed the pertinent imaging results. Radiologist's impression: No acute displaced fracture or malalignment of the cervical spine. Posterior disc bulge at C6-7 with mild spinal canal narrowing. Please note that all CT scans at this facility use dose modulation, iterative reconstruction, and/or weight-based dosing when appropriate to reduce radiation dose to as low as reasonably achievable. Dictated by Cj Middleton MD @ 06/03/2024 5:45:19 PM ECG Data Attestation: I personally reviewed and interpreted this ECG as follows: Prior ECG tracings: available for review Interpretation: normal sinus rhythm with 71 beats per minute, normal intervals, normal axis, left bundle branch block, no ST or T-wave abnormalities. Discharge Plan Discharge Clinical Impression: Closed head injury Qualifiers: Encounter type: initial encounter Qualified Code(s): S09.90XA - Unspecified injury of head, initial encounter Patient Disposition: Home, Self-Care Condition: Stable Instructions: Head Injury (DC) Additional Instructions: Take Tylenol for headache. Stay away from NSAIDs at this time. Return to emergency department for new or worsening symptoms. Prescriptions: No Action nitroglycerin [Nitrostat] 0.4 mg tablet, sublingual 0.4 mg sublingual ONCE PRN Rx Instructions: as a single dose; administer 5-10 minutes before situation known to precipitate angina attack irbesartan 75 mg tablet PO DAILY Jardiance 10 mg tablet 10 mg PO QAM potassium chloride 10 mEq capsule, extended release 10 meq PO QDAY Qty: 90 3RF metoprolol succinate 25 mg tablet extended release 24 hr 12.5 mg PO QDAY Qty: 45 3RF pioglitazone 15 mg tablet 15 mg PO QDAY Qty: 90 3RF furosemide 20 mg tablet 20 mg PO QAM Qty: 90 3RF glipizide 10 mg tablet 10 mg PO BID Qty: 180 3RF sertraline 100 mg tablet 100 mg PO QDAY Qty: 90 3RF metronidazole 500 mg tablet 500 mg PO Q8H Qty: 30 0RF (DME) blood glucose control, normal [Accu-Chek SmartView Contrl Dolores] Solution See Rx Instructions .Route Rx Instructions: As directed (DME) lancets [Accu-Chek Fastclix Lancet Drum] Misc See Rx Instructions .Route Rx Instructions: As directed Ocuvite Eye Plus Multi 200-15-150 mcg tablet 1 tab PO QDAY Rx Instructions: administer with a meal and a large glass of water omega 6-dkf-tud-fish oil [Fish Oil] 1,200 (144-216) mg capsule 1 cap PO DAILY (DME) Accu-Chek SmartView Test Strip Strip See Rx Instructions .ROUTE .COMPLEX Qty: 100 3RF Dose Instruction: TEST BLOOD SUGAR EVERY DAY (DUE FOR RECHECK IN CLINIC IN . PLAN FASTING LABS) Rx Instructions: TEST BLOOD SUGAR EVERY DAY (DUE FOR RECHECK IN CLINIC IN . PLAN FASTING LABS) levothyroxine [Synthroid] 75 mcg tablet 75 mcg PO QDAY Qty: 90 3RF atorvastatin 20 mg tablet 20 mg PO QDAY Qty: 90 0RF warfarin 2 mg tablet 3 mg PO QDAY Qty: 100 3RF Protocol: Dose Management Condition: Saturday (Week One) Dose/Route: 3 mg Instruction: 1.5 x 2 mg tablets Condition: Saturday Dose/Route: 4 mg Instruction: 2 x 2 mg tablets Condition: Saturday Dose/Route: 3 mg Instruction: 1.5 x 2 mg tablets Condition: Saturday Dose/Route: 0 mg Instruction: 0 tablets Condition: Dose/Route: 0 mg Instruction: 0 tablets Condition: Saturday Dose/Route: 3 mg Instruction: 1.5 x 2 mg tablets Condition: Saturday Dose/Route: 3 mg Instruction: 1.5 x 2 mg tablets Condition: Saturday (Week Two) Dose/Route: 3 mg Instruction: 1.5 x 2 mg tablets Condition: Saturday Dose/Route: 4 mg Instruction: 2 x 2 mg tablets Condition: Saturday Dose/Route: 3 mg Instruction: 1.5 x 2 mg tablets Condition: Saturday Dose/Route: 3 mg Instruction: 1.5 x 2 mg tablets Condition: Dose/Route: 4 mg Instruction: 2 x 2 mg tablets Condition: Saturday Dose/Route: 3 mg Instruction: 1.5 x 2 mg tablets Condition: Saturday Dose/Route: 3 mg Instruction: 1.5 x 2 mg tablets Protocol Text: Adjustment Start Date: Saturday04/28/24 INR Value: 4.81 INR Date: 04/28/24 Recheck Date: 05/12/24 metformin 1,000 mg tablet 1,000 mg PO BID Qty: 180 0RF alendronate 70 mg tablet 70 mg PO QWEEK Qty: 12 3RF amiodarone 200 mg tablet 200 mg PO DAILY Qty: 30 5RF Follow Up/Referrals: Brian Garay MD [Primary Care Provider] - Stand Alone [facility]: [facility] Info Instructions
[2024-06-03 17:38] LABS: Slide Review Reflex No
[2024-06-03 18:19] LABS: Chloride* 101 mmol/L (96-114); INR 2.49 (0.91-1.10); Prothrombin Time 28.1 Seconds; Sodium* 139 mmol/L (135-149)
[2024-06-03 18:21] LABS: Blood Urea Nitrogen* 18 mg/dL (7-30); Creatinine* 0.7 mg/dL (0.5-1.5); Est. Creatinine Clearance* 31.94; Estimated Glomerular Filt Rate 84 ml/min; Potassium* 3.1 mmol/L (3.6-5.1)
--- OUTSIDE RECORDS SUMMARY | 2024-06-03 18:21 | XMS_ITS | Encounter Summary ---
Author Organization [facility] Address [address] [place] [address] Care Team Providers Care Grinder Hardboard Name Role Phone None Reported, Pcp Primary Care Provider Unavail able Reason for Referral * Outpatient (Routine) - Authorized Specialty Diagnoses / Procedures Referred By Godwinac t Referred To Contact Diagnoses Replacement Aortic Valve Tissue Coronary Arterial Bypass Graft Status Post Personal History Procedures Cardiac Rehab Program [place] [address] Phone: tel: fax: [facility] Region Referral ID Status Reason Start Date Expiration Date V isits Requested Visits Authorized [id number] Authorized 02/20/2024 02/19/2025 45 45 TION MAKER Reason for Visit * Outpatient (Routine) - Authorized Specialty Diagnoses / Procedures Referred By Jordan t Referred To Contact Diagnoses Replacement Aortic Valve Tissue Coronary Arterial Bypass Graft Status Post Personal History Procedures Cardiac Rehab Program [place] [address] Phone: tel: fax: [facility] Region Referral ID Status Reason Start Date Expiration Date V isits Requested Visits Authorized [id number] Authorized 02/20/2024 02/19/2025 45 45 Encounter Details Date Type Department Care Team (Latest Contact Info) Description 04/27/2024 1:56 PM SOLUTION MAKER - 04/27/2024 11:59 PM SOLUTION MAKER Hospital Encounter Department of Cardiac Rehabilitation in [place], [place] [address] [place] [phone] Keon Peace M.D. [address] [place] [phone] Replacement Aortic Valve Tissue; Coronary Arterial Bypass Graft Status Post Personal History Discharge Disposition: Home or Self Care Social History Tobacco Use Types Packs/Day Years Used Date Smoking Tobacco: Never Dental Answer Date Recorded Dental: Regular Dentist Unknown 12/04/19 24 Comments Unknown Sex and Gender Information Value Date Recorded Sex Assigned at Not on file Legal Sex Female 4:49 PM SOLUTION MAKER Gender Identity Not on file Sexual Orientation Not on file documented as of this encounter Plan of Treatment Upcoming Encounters Date Type Department Care Team (Late st Contact Info) Description 06/05/2024 2:00 PM SOLUTION MAKER Appointment Department of Cardiac Rehabilitation in [place] [address] [place] [address] Keon Peace M.D. [address] [place] [phone] 06/08/2024 2:00 PM CDT Appointment Department of Cardiac Rehabilitation in [place] [address] [place] [address] Keon Peace M.D. [address] [place] [phone] 06/10/2024 2:00 PM CDT Appointment Department of Cardiac Rehabilitation in [place] [address] [place] [phone] Keon Peace M.D. [address] [place] [phone] 06/12/2024 2:00 PM CDT Appointment Department of Cardiac Rehabilitation in [place] [address] [place] [address] Keon Peace M.D. [address] [place] [phone] 06/15/2024 2:00 PM CDT Appointment Department of Cardiac Rehabilitation in [place], [place] [address] [facility] [place] [phone] Keon Peace M.D. [address] [place] [phone] 06/17/2024 2:00 PM CDT Appointment Department of Cardiac Rehabilitation in [place], [place] [address] [place] [phone] Keon Peace M.D. [address] [place] [phone] Scheduled Orders Name Type Priority Associated Diagnoses Orde r Schedule Cardiac Rehab Program Card Rehab Routine Replacement Aortic Valve Tissue Coronary Arterial Bypass Graft Status Post Personal History Once for 1 Occurrences starting 04/27/2024 until 04/27/2024 documented as of this encounter Visit Diagnoses Diagnosis Replacement Aortic Valve Tissue Coronary Arterial Bypass Graft Status Post Personal History documented in this encounter Care Teams Grinder Hardboard Relationship Specialty Start Date End Date None Reported, Pcp PCP - General Family Medicine 02/28/24 documented as of this encounter
--- OUTSIDE RECORDS SUMMARY | 2024-06-03 18:21 | XMS_ITS | Encounter Summary ---
Author Organization [facility] Address [address] [place] [address] Care Team Providers Care Cream Buyer Name Role Phone None Reported, Pcp Primary Care Provider Unavail able Reason for Referral * Outpatient (Routine) - Authorized Specialty Diagnoses / Procedures Referred By Godwinac t Referred To Contact Diagnoses Replacement Aortic Valve Tissue Coronary Arterial Bypass Graft Status Post Personal History Procedures Cardiac Rehab Program [place] [address] Phone: tel: fax: [facility] Region Referral ID Status Reason Start Date Expiration Date V isits Requested Visits Authorized [id number] Authorized 02/20/2024 02/19/2025 45 45 CE MACHINE PUNCH OPERATOR Reason for Visit * Outpatient (Routine) - Authorized Specialty Diagnoses / Procedures Referred By Jordan t Referred To Contact Diagnoses Replacement Aortic Valve Tissue Coronary Arterial Bypass Graft Status Post Personal History Procedures Cardiac Rehab [place] [address] Phone: tel: fax: [facility] Region Referral ID Status Reason Start Date Expiration Date V isits Requested Visits Authorized [id number] Authorized 02/20/2024 02/19/2025 45 45 Encounter Details Date Type Department Care Team (Latest Contact Info) Description 04/29/2024 1:45 PM OFFICE MACHINE PUNCH OPERATOR - 04/29/2024 11:59 PM OFFICE MACHINE PUNCH OPERATOR Hospital Encounter Department of Cardiac Rehabilitation in [place], [place] [address] [place] [phone] Keon Peace M.D. [address] [place] [phone] Replacement Aortic Valve Tissue; Coronary Arterial Bypass Graft Status Post Personal History Discharge Disposition: Home or Self Care Social History Tobacco Use Types Packs/Day Years Used Date Smoking Tobacco: Never Dental Answer Date Recorded Dental: Regular Dentist Unknown 12/04/19 24 Comments Unknown Sex and Gender Information Value Date Recorded Sex Assigned at Not on file Legal Sex Female 4:49 PM OFFICE MACHINE PUNCH OPERATOR Gender Identity Not on file Sexual Orientation Not on file documented as of this encounter Plan of Treatment Upcoming Encounters Date Type Department Care Team (Late st Contact Info) Description 06/05/2024 2:00 PM OFFICE MACHINE PUNCH OPERATOR Appointment Department of Cardiac Rehabilitation in [place] [address] [place] [address] Keon Peace M.D. [address] [place] [phone] 06/08/2024 2:00 PM CDT Appointment Department of Cardiac Rehabilitation in [place] [address] [place] [address] Keon Peace M.D. [address] [place] [phone] 06/10/2024 2:00 PM CDT Appointment Department of Cardiac Rehabilitation in [place] [address] [place] [address] Keon Peace M.D. [address] [place] [phone] 06/12/2024 2:00 PM CDT Appointment Department of Cardiac Rehabilitation in [place] [address] [place] [address] Keon Peace M.D. [address] [place] [phone] 06/15/2024 2:00 PM CDT Appointment Department of Cardiac Rehabilitation in [place], [place] [address] [facility] [place] [phone] Keon Peace M.D. [address] [place] [phone] 06/17/2024 2:00 PM CDT Appointment Department of Cardiac Rehabilitation in [place], [place] [address] [place] [phone] Keon Peace M.D. [address] [place] [phone] Scheduled Orders Name Type Priority Associated Diagnoses Orde r Schedule Cardiac Rehab Program Card Rehab Routine Replacement Aortic Valve Tissue Coronary Arterial Bypass Graft Status Post Personal History Once for 1 Occurrences starting 04/29/2024 until 04/29/2024 documented as of this encounter Visit Diagnoses Diagnosis Replacement Aortic Valve Tissue Coronary Arterial Bypass Graft Status Post Personal History documented in this encounter Care Teams Cream Buyer Relationship Specialty Start Date End Date None Reported, Pcp PCP - General Family Medicine 02/28/24 documented as of this encounter
--- OUTSIDE RECORDS SUMMARY | 2024-06-03 18:21 | XMS_ITS | Encounter Summary ---
Author Organization [facility] Address [address] [place] [address] Care Team Providers Care Proced Tech Name Role Phone None Reported, Pcp Primary Care Provider Unavail able Encounter Details Date Type Department Care Team (Late st Contact Info) Description 05/14/2024 Documentation Department of Cardiac Rehabilitation in [address] [address] Jyoti King C.Ph.T. Social History Tobacco Use Types Packs/Day Years Used Date Smoking Tobacco: Never Dental Answer Date Recorded Dental: Regular Dentist Unknown 12/04/19 24 Comments Unknown Sex and Gender Information Value Date Recorded Sex Assigned at Not on file Legal Sex Female 4:49 PM COMPANY MINER BLASTING Gender Identity Not on file Sexual Orientation Not on file documented as of this encounter Plan of Treatment Upcoming Encounters Date Type Department Care Team (Late st Contact Info) Description 06/05/2024 2:00 PM COMPANY MINER BLASTING Appointment Department of Cardiac Rehabilitation in [place] [address] [place] [phone] Keon Peace M.D. [address] [place] [phone] 06/08/2024 2:00 PM CDT Appointment Department of Cardiac Rehabilitation in [place] [address] [place] [phone] Keon Peace M.D. [address] [place] [phone] 06/10/2024 2:00 PM CDT Appointment Department of Cardiac Rehabilitation in [place], [place] [address] [place] [address] Keon Peace M.D. [address] [place] [address] 06/12/2024 2:00 PM CDT Appointment Department of Cardiac Rehabilitation in [place], [place] [address] [place] [address] Keon Peace M.D. [address] [place] [address] 06/15/2024 2:00 PM CDT Appointment Department of Cardiac Rehabilitation in [place] [address] [place] [address] Keon Peace M.D. [address] [place] [address] 06/17/2024 2:00 PM CDT Appointment Department of Cardiac Rehabilitation in [place] [address] [place] [address] Keon Peace M.D. [address] [place] [phone] documented as of this encounter Visit Diagnoses Not on filedocumented in this encounter Care Teams Proced Tech Relationship Specialty Start Date End Date None Reported, Pcp PCP - General Family Medicine 02/28/24 documented as of this encounter
--- OUTSIDE RECORDS SUMMARY | 2024-06-03 18:21 | XMS_ITS | Encounter Summary ---
Author Organization [facility] Address [address] [place] [address] Care Team Providers Care Oversize Load Pilot Escort Name Role Phone None Reported, Pcp Primary Care Provider Unavail able Encounter Details Date Type Department Care Team (Latest Contact Info) Description 05/14/2024 Clinical Communication Department of Cardiac Rehabilitation in [place], [place] [address] [place] [address] Jyoti King C.Ph.T. Social History Tobacco Use Types Packs/Day Years Used Date Smoking Tobacco: Never Dental Answer Date Recorded Dental: Regular Dentist Unknown 12/04/19 24 Comments Unknown Sex and Gender Information Value Date Recorded Sex Assigned at Not on file Legal Sex Female 4:49 PM SUSTAINABILITY OFFICER Gender Identity Not on file Sexual Orientation Not on file documented as of this encounter Plan of Treatment Upcoming Encounters Date Type Department Care Team (Late st Contact Info) Description 06/05/2024 2:00 PM SUSTAINABILITY OFFICER Appointment Department of Cardiac Rehabilitation in [place] [address] [place] [phone] Keon Peace M.D. [address] [place] [phone] 06/08/2024 2:00 PM CDT Appointment Department of Cardiac Rehabilitation in [place], [place] [address] [place] [phone] Keon Peace M.D. [address] [place] [phone] 06/10/2024 2:00 PM CDT Appointment Department of Cardiac Rehabilitation in [place], [place] [address] [place] [address] Keon Peace M.D. [address] [place] [address] 06/12/2024 2:00 PM CDT Appointment Department of Cardiac Rehabilitation in [place], [place] [address] [place] [address] Keon Peace M.D. [address] [place] [address] 06/15/2024 2:00 PM CDT Appointment Department of Cardiac Rehabilitation in [place] [address] [place] [address] Keon Peace M.D. [address] [place] [address] 06/17/2024 2:00 PM CDT Appointment Department of Cardiac Rehabilitation in [place] [address] [place] [address] Keon Peace M.D. [address] [place] [phone] documented as of this encounter Visit Diagnoses Not on filedocumented in this encounter Care Teams Oversize Load Pilot Escort Relationship Specialty Start Date End Date None Reported, Pcp PCP - General Family Medicine 02/28/24 documented as of this encounter
--- OUTSIDE RECORDS SUMMARY | 2024-06-03 18:21 | XMS_ITS | Encounter Summary ---
Author Organization [facility] Address [address] [place] [address] Care Team Providers Care Customer Marketing Intern Name Role Phone None Reported, Pcp Primary Care Provider Unavail able Reason for Referral * Outpatient (Routine) - Authorized Specialty Diagnoses / Procedures Referred By Godwinac t Referred To Contact Diagnoses Replacement Aortic Valve Tissue Coronary Arterial Bypass Graft Status Post Personal History Procedures Cardiac Rehab Program [place] [address] Phone: tel: fax: [facility] Region Referral ID Status Reason Start Date Expiration Date V isits Requested Visits Authorized [id number] Authorized 02/20/2024 02/19/2025 45 45 ATRIC REGISTERED NURSE Reason for Visit * Outpatient (Routine) - Authorized Specialty Diagnoses / Procedures Referred By Jordan t Referred To Contact Diagnoses Replacement Aortic Valve Tissue Coronary Arterial Bypass Graft Status Post Personal History Procedures Cardiac Rehab Program [place] [address] Phone: tel: fax: [facility] Region Referral ID Status Reason Start Date Expiration Date V isits Requested Visits Authorized [id number] Authorized 02/20/2024 02/19/2025 45 45 Encounter Details Date Type Department Care Team (Latest Contact Info) Description 04/24/2024 1:43 PM PEDIATRIC REGISTERED NURSE - 04/24/2024 11:59 PM PEDIATRIC REGISTERED NURSE Hospital Encounter Department of Cardiac Rehabilitation in [place], [place] [address] [place] [phone] Keon Peace M.D. [address] [place] [phone] Replacement Aortic Valve Tissue; Coronary Arterial Bypass Graft Status Post Personal History Discharge Disposition: Home or Self Care Social History Tobacco Use Types Packs/Day Years Used Date Smoking Tobacco: Never Dental Answer Date Recorded Dental: Regular Dentist Unknown 12/04/19 24 Comments Unknown Sex and Gender Information Value Date Recorded Sex Assigned at Not on file Legal Sex Female 4:49 PM PEDIATRIC REGISTERED NURSE Gender Identity Not on file Sexual Orientation Not on file documented as of this encounter Plan of Treatment Upcoming Encounters Date Type Department Care Team (Late st Contact Info) Description 06/05/2024 2:00 PM PEDIATRIC REGISTERED NURSE Appointment Department of Cardiac Rehabilitation in [place] [address] [place] [address] Keon Peace M.D. [address] [place] [phone] 06/08/2024 2:00 PM CDT Appointment Department of Cardiac Rehabilitation in [place] [address] [place] [address] Keon Peace M.D. [address] [place] [phone] 06/10/2024 2:00 PM CDT Appointment Department of Cardiac Rehabilitation in [place] [address] [place] [address] Keon Peace M.D. [address] [place] [phone] 06/12/2024 2:00 PM CDT Appointment Department of Cardiac Rehabilitation in [place] [address] [place] [address] Keon Peace M.D. [address] [place] [phone] 06/15/2024 2:00 PM CDT Appointment Department of Cardiac Rehabilitation in [place], [place] [address] [facility] [place] [address] Keon Peace M.D. [address] [place] [phone] 06/17/2024 2:00 PM CDT Appointment Department of Cardiac Rehabilitation in [place], [place] [address] [place] [phone] Keon Peace M.D. [address] [place] [phone] Scheduled Orders Name Type Priority Associated Diagnoses Orde r Schedule Cardiac Rehab Program Card Rehab Routine Replacement Aortic Valve Tissue Coronary Arterial Bypass Graft Status Post Personal History Once for 1 Occurrences starting 04/24/2024 until 04/24/2024 documented as of this encounter Visit Diagnoses Diagnosis Replacement Aortic Valve Tissue Coronary Arterial Bypass Graft Status Post Personal History documented in this encounter Care Teams Customer Marketing Intern Relationship Specialty Start Date End Date None Reported, Pcp PCP - General Family Medicine 02/28/24 documented as of this encounter
--- OUTSIDE RECORDS SUMMARY | 2024-06-03 18:21 | XMS_ITS | Encounter Summary ---
Author Organization [facility] Address [address] [place] [address] Care Team Providers Care Real Estate Broker Name Role Phone None Reported, Pcp Primary Care Provider Unavail able Encounter Details Date Type Department Care Team (Latest Contact Info) Description 05/14/2024 Plan of Care Documentation Department of Cardiac Rehabilitation in [place] [address] [place] [address] Social History Tobacco Use Types Packs/Day Years Used Date Smoking Tobacco: Never Dental Answer Date Recorded Dental: Regular Dentist Unknown 12/04/19 24 Comments Unknown Sex and Gender Information Value Date Recorded Sex Assigned at Not on file Legal Sex Female 4:49 PM BIOMEDICAL SCIENTIST Gender Identity Not on file Sexual Orientation Not on file documented as of this encounter Miscellaneous Notes * Specialty Plan of Care - Jyoti King C.Ph.T. - 05/14/2024 10:00 AM CST Images from the original note were not included. Ms. Cody (88 y.o., : 1935, ) was referred to the [facility] Cardiac Rehab Program on 02/10/2024, by Lakisha and has completed 28 sessions out of the 36 prescribed. 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 Patient has attended 11 sessions of cardiac rehab and feels it has been going well. Patient had Aortic valve replace ment with [id number] mm tissue valve, Coronary artery bypass grafting [...] % 55 % 55 % 55 % [place] [employer] Functional Class I - Normal [...] essions. Exercise Education Documentation Exercise Program Guidelines [id number], taught by Gosia Rivas R.N. at 03/13/2024 10:24 AM. Learner: Patient Readiness: Eager Method: Explanation Response: Able to Teach Back Move More and Sit Less the NEAT Way [id number], taught by Gosia Rivas R.N. at 04/22/2024 1:59 PM. Learner: Patient Readiness: Eager Method: Explanation Response: Able to Teach Back Benefits and Barriers Of Exercise [id number], taught by Gosia Rivas R.NJacklyn at 04/20/2024 1:52 PM. Learner: Patient Readiness: Eager Method: Explanation Response: Able to Teach Back Interval Training [id number], taught by Skye Juarez at 03/23/2024 3:09 PM. Learner: Patient Readiness: Eager Method: Explanation, Handout, Class / Group Response: Able to Teach Back Stretches [id number], taught by Skye Juarez at 03/18/2024 3:09 [...] Nutrition Guidelines for Cholesterol, Triglycerides and Sodium [id number], taught by Skye Juarez at 04/03/2024 3:01 PM. Learner: Patient Readiness: Eager Method: Explanation, Handout, Class / Group Response: Able to Teach Back How to Read a Food Label [id number], taught by Gosia Rivas R.N. at 03/30/2024 2:47 PM. Learner: Patient Readiness: Eager Method: Explanation Response: Able to Teach Back Mediterranean Diet Pyramid: Guidelines for Adults [id number], taught by Skye Juarez at 02/26/2024 3:06 PM. Learner: Patient Readiness: Eager Method: Explanation, Handout, Class / Group Response: Able to Teach Back Mediterranean Diet [id number], taught by Skye Juarez at 02/26/2024 3:06 [...] upcoming sessions. Psychosocial Education Documentation Relaxation Techniques [id number], taught by Skye Juarez at 04/10/2024 3:02 PM. Learner: Patient Readiness: Eager Method: Explanation, Handout, Class / Group Response: Able to Teach Back Stress Reducers [id number], taught by Skye Juarez at 04/08/2024 3:04 PM. Learner: Patient Readiness: Eager Method: Explanation, Handout, Class / Group Response: Able to Teach Back Stress Management [id number], taught by Gosia Rivas R.N. at 04/08/2024 1:47 PM. Learner: Patient Readiness: Eager Method: Explanation Response: Able to Teach Back Knowing About Depression Finding Your Way [id number], taught by Skye Juarez at 04/06/2024 3:04 PM. Learner: Patient Readiness: Eager Method: Explanation, Handout, Class / Group Response: Able to Teach Back My Road to Better Health Sleep NP9046-47, taught by Gosia Rivas R.N. at 03/04/2024 [...] High Blood Pressure Also Known as Hypertension [id number], taught by Gosia Rivas R.N. at 04/15/2024 2:02 PM. Learner: Patient Readiness: Eager Method: Explanation Response: Able to Teach Back Risk Factors For Heart Disease NW9241-71, taught by Skye Juarez at 03/06/2024 2:47 [...] Medication Compliance Education Documentation Managing Your Medications [id number], taught by Skye Juarez at 04/17/2024 2:37 PM. Learner: Patient Readiness: Eager Method: Explanation, Handout, Class / Group Response: Able to Teach Back Medications were reviewed every visit. Patient expresses understanding and acceptance of instructions. Avi MabryPh.T. 0:00 AM BIOMEDICAL SCIENTIST [1] Social History Tobacco Use Smoking Status Never Smokeless Tobacco Not on file EDICAL SCIENTIST documented in this encounter Plan of Treatment Upcoming Encounters Date Type Department Care Team (Late st Contact Info) Description 06/05/2024 2:00 PM BIOMEDICAL SCIENTIST Appointment Department of Cardiac Rehabilitation in [place] [address] [place] [address] Keon Peace M.D. [address] [place] [phone] 06/08/2024 2:00 PM CDT Appointment Department of Cardiac Rehabilitation in [place] [address] [place] [address] Keon Peace M.D. [address] [place] [address] 06/10/2024 2:00 PM CDT Appointment Department of Cardiac Rehabilitation in [place] [address] [place] [address] Keon Peace M.D. [address] [place] [address] 06/12/2024 2:00 PM CDT Appointment Department of Cardiac Rehabilitation in [place] [address] [place] [address] Keon Peace M.D. [address] [place] [address] 06/15/2024 2:00 PM CDT Appointment Department of Cardiac Rehabilitation in [place], [place] [address] [place] [address] Keon Peace M.D. [address] [place] [phone] 06/17/2024 2:00 PM CDT Appointment Department of Cardiac Rehabilitation in [place], [place] [address] [place] [address] Keon Peace M.D. [address] [place] [phone] documented as of this encounter Visit Diagnoses Not on filedocumented in this encounter Care Teams Real Estate Broker Relationship Specialty Start Date End Date None Reported, Pcp PCP - General Family Medicine 02/28/24 documented as of this encounter
--- OUTSIDE RECORDS SUMMARY | 2024-06-03 18:21 | XMS_ITS | Encounter Summary ---
Author Organization [facility] Address [address] [place] [address] Care Team Providers Care Facilities Clerk Name Role Phone None Reported, Pcp Primary Care Provider Unavail able Reason for Referral * Outpatient (Routine) - Authorized Specialty Diagnoses / Procedures Referred By Godwinac t Referred To Contact Diagnoses Replacement Aortic Valve Tissue Coronary Arterial Bypass Graft Status Post Personal History Procedures Cardiac Rehab [place] [address] Phone: tel: fax: [facility] Region Referral ID Status Reason Start Date Expiration Date V isits Requested Visits Authorized [id number] Authorized 02/20/2024 02/19/2025 45 45 HOT SUPERINTENDENT Reason for Visit * Outpatient (Routine) - Authorized Specialty Diagnoses / Procedures Referred By Jordan rubio Referred To Contact Diagnoses Replacement Aortic Valve Tissue Coronary Arterial Bypass Graft Status Post Personal History Procedures Cardiac Rehab [place] [address] Phone: tel: fax: [facility] Region Referral ID Status Reason Start Date Expiration Date V isits Requested Visits Authorized [id number] Authorized 02/20/2024 02/19/2025 45 45 Encounter Details Date Type Department Care Team (Latest Contact Info) Description 05/01/2024 1:50 PM HOTSHOT SUPERINTENDENT - 05/01/2024 11:59 PM HOTSHOT SUPERINTENDENT Hospital Encounter Department of Cardiac Rehabilitation in [place], [place] [address] [place] [address] Keon Peace M.D. [address] [place] [phone] Replacement Aortic Valve Tissue; Coronary Arterial Bypass Graft Status Post Personal History Discharge Disposition: Home or Self Care Social History Tobacco Use Types Packs/Day Years Used Date Smoking Tobacco: Never Dental Answer Date Recorded Dental: Regular Dentist Unknown 12/04/19 24 Comments Unknown Sex and Gender Information Value Date Recorded Sex Assigned at Not on file Legal Sex Female 4:49 PM HOTSHOT SUPERINTENDENT Gender Identity Not on file Sexual Orientation Not on file documented as of this encounter Plan of Treatment Upcoming Encounters Date Type Department Care Team (Late st Contact Info) Description 06/05/2024 2:00 PM HOTSHOT SUPERINTENDENT Appointment Department of Cardiac Rehabilitation in [place] [address] [place] [address] Keon Peace M.D. [address] [place] [phone] 06/08/2024 2:00 PM CDT Appointment Department of Cardiac Rehabilitation in [place] [address] [place] [address] Keon Peace M.D. [address] [place] [phone] 06/10/2024 2:00 PM CDT Appointment Department of Cardiac Rehabilitation in [place] [address] [place] [address] Keon Peace M.D. [address] [place] [phone] 06/12/2024 2:00 PM CDT Appointment Department of Cardiac Rehabilitation in [place] [address] [place] [address] Keon Peace M.D. [address] [place] [address] 06/15/2024 2:00 PM CDT Appointment Department of Cardiac Rehabilitation in [place], [place] [address] [facility] [place] [address] Keon Peace M.D. [address] [place] [phone] 06/17/2024 2:00 PM CDT Appointment Department of Cardiac Rehabilitation in [place], [place] [address] [place] [address] Keon Peace M.D. [address] [place] [phone] Scheduled Orders Name Type Priority Associated Diagnoses Orde r Schedule Cardiac Rehab Program Card Rehab Routine Replacement Aortic Valve Tissue Coronary Arterial Bypass Graft Status Post Personal History Once for 1 Occurrences starting 05/01/2024 until 05/01/2024 documented as of this encounter Visit Diagnoses Diagnosis Replacement Aortic Valve Tissue Coronary Arterial Bypass Graft Status Post Personal History documented in this encounter Care Teams Facilities Clerk Relationship Specialty Start Date End Date None Reported, Pcp PCP - General Family Medicine 02/28/24 documented as of this encounter
--- OUTSIDE RECORDS SUMMARY | 2024-06-03 18:21 | XMS_ITS | Clinical Summary ---
Author Organization [facility] Address [address] [place] [address] Care Team Providers Care Competitive Athlete Name Role Phone None Reported, Pcp Primary Care Provider Unavail able Source Comments Patient records contain information from all sites at [facility]. For routine questions regarding patient records, call [phone] during business hours, M-F 8:00 AM - 5:00 PM Central Time. Record requests for emergency care only can be directed to [phone] at any time.[facility] Allergies Active Allergy Reactions Criticality Noted Date Comments Penicillin Itching 02/20/2024 Penicillins Hives only, no other systemic symptoms,Itching Low 06/12/2005 Medications No known medications Active Problems No known active problems Encounters Date Type Department Care Team Description 06/01/2024 1:49 PM HOT SHOT - 06/01/2024 11:59 PM HOT SHOT Hospital Encounter Department of Cardiac Rehabilitation in [address] [address] Keon Peace M.D. Replacement Aortic Valve Tissue; Coronary Arterial Bypass Graft Status Post Personal History Discharge Disposition: Home or Self Care 05/29/2024 1:51 PM HOT SHOT - 05/29/2024 11:59 PM HOT SHOT Hospital Encounter Department of Cardiac Rehabilitation in [address] [address] Keon Peace M.D. Replacement Aortic Valve Tissue; Coronary Arterial Bypass Graft Status Post Personal History Discharge Disposition: Home or Self Care 05/27/2024 1:52 PM HOT SHOT - 05/27/2024 11:59 PM HOT SHOT Hospital Encounter Department of Cardiac Rehabilitation in [address] [address] Keon Peace M.D. Replacement Aortic Valve Tissue; Coronary Arterial Bypass Graft Status Post Personal History Discharge Disposition: Home or Self Care 05/14/2024 Plan of Care Documentation Department of Cardiac Rehabilitation in [address] [address] 05/14/2024 Documentation Department of Cardiac Rehabilitation in [address] [address] Jyoti King C.Ph.T. 05/14/2024 Clinical Communication Department of Cardiac Rehabilitation in [address] [address] Jyoti King C.Ph.T. 05/01/2024 1:50 PM HOT SHOT - 05/01/2024 11:59 PM HOT SHOT Hospital Encounter Department of Cardiac Rehabilitation in [address] [address] Keon Peace M.D. Replacement Aortic Valve Tissue; Coronary Arterial Bypass Graft Status Post Personal History Discharge Disposition: Home or Self Care 04/29/2024 1:45 PM HOT SHOT - 04/29/2024 11:59 PM HOT SHOT Hospital Encounter Department of Cardiac Rehabilitation in [address] [address] Keon Peace M.D. Replacement Aortic Valve Tissue; Coronary Arterial Bypass Graft Status Post Personal History Discharge Disposition: Home or Self Care 04/27/2024 1:56 PM HOT SHOT - 04/27/2024 11:59 PM HOT SHOT Hospital Encounter Department of Cardiac Rehabilitation in [address] [address] Keon Peace M.D. Replacement Aortic Valve Tissue; Coronary Arterial Bypass Graft Status Post Personal History Discharge Disposition: Home or Self Care 04/24/2024 1:43 PM HOT SHOT - 04/24/2024 11:59 PM HOT SHOT Hospital Encounter Department of Cardiac Rehabilitation in [address] [address] Keon Peace M.D. Replacement Aortic Valve Tissue; Coronary Arterial Bypass Graft Status Post Personal History Discharge Disposition: Home or Self Care 04/22/2024 1:59 PM HOT SHOT - 04/22/2024 11:59 PM HOT SHOT Hospital Encounter Department of Cardiac Rehabilitation in [address] [address] Keon Peace M.D. Replacement Aortic Valve Tissue; Coronary Arterial Bypass Graft Status Post Personal History Discharge Disposition: Home or Self Care 04/20/2024 1:50 PM HOT SHOT - 04/20/2024 11:59 PM HOT SHOT Hospital Encounter Department of Cardiac Rehabilitation in [address] [address] Keon Peace M.D. Replacement Aortic Valve Tissue; Coronary Arterial Bypass Graft Status Post Personal History Discharge Disposition: Home or Self Care 04/17/2024 1:44 PM HOT SHOT - 04/17/2024 11:59 PM HOT SHOT Hospital Encounter Department of Cardiac Rehabilitation in [address] [address] Keon Peace M.D. Replacement Aortic Valve Tissue; Coronary Arterial Bypass Graft Status Post Personal History Discharge Disposition: Home or Self Care 04/16/2024 Plan of Care Documentation Department of Cardiac Rehabilitation in [address] [address] 04/15/2024 1:53 PM HOT SHOT - 04/15/2024 11:59 PM HOT SHOT Hospital Encounter Department of Cardiac Rehabilitation in [address] [address] Keon Peace M.D. Replacement Aortic Valve Tissue; Coronary Arterial Bypass Graft Status Post Personal History Discharge Disposition: Home or Self Care 04/13/2024 1:41 PM HOT SHOT - 04/13/2024 11:59 PM HOT SHOT Hospital Encounter Department of Cardiac Rehabilitation in [address] [address] Keon Peace M.D. Replacement Aortic Valve Tissue; Coronary Arterial Bypass Graft Status Post Personal History Discharge Disposition: Home or Self Care 04/10/2024 1:44 PM HOT SHOT - 04/10/2024 11:59 PM HOT SHOT Hospital Encounter Department of Cardiac Rehabilitation in [address] [address] Keon Peace M.D. Replacement Aortic Valve Tissue; Coronary Arterial Bypass Graft Status Post Personal History Discharge Disposition: Home or Self Care 04/08/2024 1:43 PM HOT SHOT - 04/08/2024 11:59 PM HOT SHOT Hospital Encounter Department of Cardiac Rehabilitation in [address] [address] Keon Peace M.D. Replacement Aortic Valve Tissue; Coronary Arterial Bypass Graft Status Post Personal History Discharge Disposition: Home or Self Care 04/06/2024 1:46 PM HOT SHOT - 04/06/2024 11:59 PM HOT SHOT Hospital Encounter Department of Cardiac Rehabilitation in [address] [address] Keon Peace M.D. Replacement Aortic Valve Tissue; Coronary Arterial Bypass Graft Status Post Personal History Discharge Disposition: Home or Self Care 04/03/2024 1:37 PM HOT SHOT - 04/03/2024 11:59 PM HOT SHOT Hospital Encounter Department of Cardiac Rehabilitation in [address] [address] Keon Peace M.D. Replacement Aortic Valve Tissue; Coronary Arterial Bypass Graft Status Post Personal History Discharge Disposition: Home or Self Care 03/30/2024 1:33 PM HOT SHOT - 03/30/2024 11:59 PM HOT SHOT Hospital Encounter Department of Cardiac Rehabilitation in [address] [address] Keon Peace M.D. Replacement Aortic Valve Tissue; Coronary Arterial Bypass Graft Status Post Personal History Discharge Disposition: Home or Self Care 03/27/2024 12:06 PM HOT SHOT - 03/27/2024 11:59 PM HOT SHOT Hospital Encounter Department of Cardiac Rehabilitation in [address] [address] Keon Peace M.D. Replacement Aortic Valve Tissue; Coronary Arterial Bypass Graft Status Post Personal History Discharge Disposition: Home or Self Care 03/23/2024 1:27 PM HOT SHOT - 03/23/2024 11:59 PM HOT SHOT Hospital Encounter Department of Cardiac Rehabilitation in [address] [address] Keon Peace M.D. Replacement Aortic Valve Tissue; Coronary Arterial Bypass Graft Status Post Personal History Discharge Disposition: Home or Self Care 03/20/2024 1:39 PM HOT SHOT - 03/20/2024 11:59 PM HOT SHOT Hospital Encounter Department of Cardiac Rehabilitation in [address] [address] Keon Peace M.D. Replacement Aortic Valve Tissue; Coronary Arterial Bypass Graft Status Post Personal History Discharge Disposition: Home or Self Care 03/19/2024 Plan of Care Documentation Department of Cardiac Rehabilitation in [address] [address] 03/18/2024 1:28 PM HOT SHOT - 03/18/2024 11:59 PM HOT SHOT Hospital Encounter Department of Cardiac Rehabilitation in [address] [address] Keon Peace M.D. Replacement Aortic Valve Tissue; Coronary Arterial Bypass Graft Status Post Personal History Discharge Disposition: Home or Self Care 03/16/2024 1:40 PM HOT SHOT - 03/16/2024 11:59 PM HOT SHOT Hospital Encounter Department of Cardiac Rehabilitation in [address] [address] Keon Peace M.D. Replacement Aortic Valve Tissue; Coronary Arterial Bypass Graft Status Post Personal History Discharge Disposition: Home or Self Care 03/13/2024 10:14 AM HOT SHOT - 03/13/2024 11:59 PM HOT SHOT Hospital Encounter Department of Cardiac Rehabilitation in [address] [address] Keon Peace M.D. Replacement Aortic Valve Tissue; Coronary Arterial Bypass Graft Status Post Personal History Discharge Disposition: Home or Self Care 03/11/2024 1:46 PM HOT SHOT - 03/11/2024 11:59 PM HOT SHOT Hospital Encounter Department of Cardiac Rehabilitation in [address] [address] Keon Peace M.D. Replacement Aortic Valve Tissue; Coronary Arterial Bypass Graft Status Post Personal History Discharge Disposition: Home or Self Care 03/09/2024 1:47 PM HOT SHOT - 03/09/2024 11:59 PM HOT SHOT Hospital Encounter Department of Cardiac Rehabilitation in [address] [address] Keon Peace M.D. Replacement Aortic Valve Tissue; Coronary Arterial Bypass Graft Status Post Personal History Discharge Disposition: Home or Self Care 03/06/2024 1:48 PM HOT SHOT - 03/06/2024 11:59 PM HOT SHOT Hospital Encounter Department of Cardiac Rehabilitation in [address] [address] Keon Peace M.D. Replacement Aortic Valve Tissue; [...] on file Legal Sex Female 4:49 PM HOT SHOT Gender Identity Not on file Sexual Orientation Not on file Last Filed Vital Signs Vital Sign Reading Time Taken Comments Blood Pressure 141/70 02/28/2024 3:40 PM HOT SHOT Pulse 80 02/28/2024 3:40 PM HOT SHOT Temperature 36.5 C (97.7 F) 02/28/2024 3:40 PM HOT SHOT Respiratory Rate 17 02/28/2024 3:40 PM HOT SHOT Oxygen Saturation 95% 02/28/2024 3:40 PM HOT SHOT Inhaled Oxygen Concentration - - Weight 65.2 kg (143 lb 11.2 oz) 02/28/2024 2:57 PM HOT SHOT Height 162 cm (5' 3.78) 10/31/2012 4:13 PM CDT Body Mass Index - - Plan of Treatment Upcoming Encounters Date Type Department Care Team (Late st Contact Info) Description 06/05/2024 2:00 PM HOT SHOT Appointment Department of Cardiac Rehabilitation in [address] [address] Keon Peace M.D. [address] [place] [phone] 06/08/2024 2:00 PM CDT Appointment Department of Cardiac Rehabilitation in [place] [address] [place] [address] Keon Peace M.D. [address] [place] [phone] 06/10/2024 2:00 PM CDT Appointment Department of Cardiac Rehabilitation in [place] [address] [place] [address] Keon Peace M.D. [address] [place] [phone] 06/12/2024 2:00 PM CDT Appointment Department of Cardiac Rehabilitation in [place] [address] [place] [address] Keon Peace M.D. [address] [place] [phone] 06/15/2024 2:00 PM CDT Appointment Department of Cardiac Rehabilitation in [address] [address] Keon Peace M.D. [address] [place] [phone] 06/17/2024 2:00 PM CDT Appointment Department of Cardiac Rehabilitation in [place], [place] [address] [place] [address] Keon Peace M.D. [address] [place] [phone] Health Maintenance Due Date Last Done Comments [...] patient's age to complete this topic Insurance [facility] MEDICARE Care Teams Competitive Athlete Relationship Specialty Start Date End Date None Reported, Pcp PCP - General Family Medicine 02/28/24
[2024-06-03 18:22] LABS: Anion Gap 12 mEq/L (7-15); Calcium* 8.8 mg/dL (8.4-10.6); Carbon Dioxide* 26 mmol/L (20-32); Glucose* 221 mg/dL (60-115); Magnesium* 1.6 mg/dL (1.5-2.6)
--- OUTSIDE RECORDS SUMMARY | 2024-06-03 18:22 | XMS_ITS | Encounter Summary ---
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 [address] Phone: tel: fax: [facility] Region Referral ID Status Reason Start Date Expiration Date V isits Requested Visits Authorized [id number] Authorized 02/20/2024 02/19/2025 45 45 OMER SERVICE ATTENDANT Reason for Visit * Outpatient (Routine) - Authorized Specialty Diagnoses / Procedures Referred By Jordan t Referred To Contact Diagnoses Replacement Aortic Valve Tissue Coronary Arterial Bypass Graft Status Post Personal History Procedures Cardiac Rehab [place] [address] Phone: tel: fax: [facility] Region Referral ID Status Reason Start Date Expiration Date V isits Requested Visits Authorized [id number] Authorized 02/20/2024 02/19/2025 45 45 Encounter Details Date Type Department Care Team (Latest Contact Info) Description 04/22/2024 1:59 PM CUSTOMER SERVICE ATTENDANT - 04/22/2024 11:59 PM CUSTOMER SERVICE ATTENDANT Hospital Encounter Department of Cardiac Rehabilitation in [place], [place] [address] [place] [phone] Keon Peace M.D. [address] [place] [phone] Replacement Aortic Valve Tissue; Coronary Arterial Bypass Graft Status Post Personal History Discharge Disposition: Home or Self Care Social History Tobacco Use Types Packs/Day Years Used Date Smoking Tobacco: Never Dental Answer Date Recorded Dental: Regular Dentist Unknown 12/04/19 24 Comments Unknown Sex and Gender Information Value Date Recorded Sex Assigned at Not on file Legal Sex Female 4:49 PM CUSTOMER SERVICE ATTENDANT Gender Identity Not on file Sexual Orientation Not on file documented as of this encounter Plan of Treatment Upcoming Encounters Date Type Department Care Team (Late st Contact Info) Description 06/05/2024 2:00 PM CUSTOMER SERVICE ATTENDANT Appointment Department of Cardiac Rehabilitation in [place] [address] [place] [address] Keon Peace M.D. [address] [place] [phone] 06/08/2024 2:00 PM CDT Appointment Department of Cardiac Rehabilitation in [place] [address] [place] [address] Keon Peace M.D. [address] [place] [phone] 06/10/2024 2:00 PM CDT Appointment Department of Cardiac Rehabilitation in [place] [address] [place] [address] Keon Peace M.D. [address] [place] [phone] 06/12/2024 2:00 PM CDT Appointment Department of Cardiac Rehabilitation in [place] [address] [place] [address] Keon Peace M.D. [address] [place] [phone] 06/15/2024 2:00 PM CDT Appointment Department of Cardiac Rehabilitation in [place], [place] [address] [facility] [place] [phone] Keon Peace M.D. [address] [place] [phone] 06/17/2024 2:00 PM CDT Appointment Department of Cardiac Rehabilitation in [place], [place] [address] [place] [phone] Keon Peace M.D. 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
--- OUTSIDE RECORDS SUMMARY | 2024-06-03 18:22 | XMS_ITS | Encounter Summary ---
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 [address] Phone: tel: fax: [facility] Region Referral ID Status Reason Start Date Expiration Date V isits Requested Visits Authorized [id number] Authorized 02/20/2024 02/19/2025 45 45 IC UTILITIES SALES REPRESENTATIVE Reason for Visit * Outpatient (Routine) - Authorized Specialty Diagnoses / Procedures Referred By Jordan rubio Referred To Contact Diagnoses Replacement Aortic Valve Tissue Coronary Arterial Bypass Graft Status Post Personal History Procedures Cardiac Rehab Program [place] [address] Phone: tel: fax: [facility] Region Referral ID Status Reason Start Date Expiration Date V isits Requested Visits Authorized [id number] Authorized 02/20/2024 02/19/2025 45 45 Encounter Details Date Type Department Care Team (Latest Contact Info) Description 04/20/2024 1:50 PM PUBLIC UTILITIES SALES REPRESENTATIVE - 04/20/2024 11:59 PM PUBLIC UTILITIES SALES REPRESENTATIVE Hospital Encounter Department of Cardiac Rehabilitation in [place], [place] [address] [place] [phone] Keon Peace M.D. [address] [place] [phone] Replacement Aortic Valve Tissue; Coronary Arterial Bypass Graft Status Post Personal History Discharge Disposition: Home or Self Care Social History Tobacco Use Types Packs/Day Years Used Date Smoking Tobacco: Never Dental Answer Date Recorded Dental: Regular Dentist Unknown 12/04/19 24 Comments Unknown Sex and Gender Information Value Date Recorded Sex Assigned at Not on file Legal Sex Female 4:49 PM PUBLIC UTILITIES SALES REPRESENTATIVE Gender Identity Not on file Sexual Orientation Not on file documented as of this encounter Plan of Treatment Upcoming Encounters Date Type Department Care Team (Late st Contact Info) Description 06/05/2024 2:00 PM PUBLIC UTILITIES SALES REPRESENTATIVE Appointment Department of Cardiac Rehabilitation in [place] [address] [place] [address] Keon Peace M.D. [address] [place] [phone] 06/08/2024 2:00 PM CDT Appointment Department of Cardiac Rehabilitation in [place] [address] [place] [address] Keon Peace M.D. [address] [place] [phone] 06/10/2024 2:00 PM CDT Appointment Department of Cardiac Rehabilitation in [place] [address] [place] [address] Keon Peace M.D. [address] [place] [phone] 06/12/2024 2:00 PM CDT Appointment Department of Cardiac Rehabilitation in [place] [address] [place] [address] Keon Peace M.D. [address] [place] [phone] 06/15/2024 2:00 PM CDT Appointment Department of Cardiac Rehabilitation in [place], [place] [address] [place] [place] [phone] Keon Peace M.D. [address] [place] [phone] 06/17/2024 2:00 PM CDT Appointment Department of Cardiac Rehabilitation in [place], [place] [address] [place] [address] Keon Peace M.D. [address] [place] [phone] Scheduled Orders Name Type Priority Associated Diagnoses Orde r Schedule Cardiac Rehab Program Card Rehab Routine Replacement Aortic Valve Tissue Coronary Arterial Bypass Graft Status Post Personal History Once for 1 Occurrences starting 04/20/2024 until 04/20/2024 documented as of this encounter Visit Diagnoses Diagnosis Replacement Aortic Valve Tissue Coronary Arterial Bypass Graft Status Post Personal History documented in this encounter Care Teams Radiotelegrapher Relationship Specialty Start Date End Date None Reported, Pcp PCP - General Family Medicine 02/28/24 documented as of this encounter
--- OUTSIDE RECORDS SUMMARY | 2024-06-03 18:22 | XMS_ITS | Clinical Summary ---
Author Organization [facility] Address [address] [place] [address] Care Team Providers Care Hand Lens Polisher Name Role Phone Brian Garay MD Primary Care Provider [phone] [facility] [place] Unavailable [phone] Allergies Active Allergy Reactions Criticality Noted Date [...] type, unspecified whether angina present, unspecified whether wiyot or transplanted heart,S/P CABG x 3 Take [...] type, unspecified whether angina present, unspecified whether wiyot or transplanted heart Take 1 Tablet (10 [...] type, unspecified whether angina present, unspecified whether wiyot or transplanted heart,S/P CABG x 3 Take 1 Tablet (20 mg) by mouth once daily. 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 [address] [place] [address] Atherosclerosis of coronary artery, unspecified vessel or lesion type, unspecified whether angina present, unspecified whether wiyot or transplanted heart; S/P CABG x 3; Paroxysmal atrial fibrillation (HC); Paroxysmal A-fib (HC); COLLAZO (dyspnea on exertion) 06/02/2024 10:00 AM ADVERTISING DESIGNER Office Visit [facility] [address] [place] [address] [address] [place] [address] Lindsey Corrales PA Follow Up (F/U. Needs clearance for colonoscopy, ekg prior. Pt states feeling good, no recent or current cardiac symptoms. Questions about meds and if she can stop taking some) 06/02/2024 Orders Only [facility] [address] [facility] [address] [place] [address] Lindsey Corrales PA <No scans attached> 06/02/2024 Orders Only [facility] [address] [place] [address] [address] [place] [address] Case, RAMON Jung <No scans attached> 06/02/2024 [...] on file Legal Sex Female 6:12 AM ADVERTISING DESIGNER Gender Identity Not on file Sexual Orientation Not on file Obstetrics History Last Filed Vital Signs Vital Sign Reading Time Taken Comments Blood Pressure 160/76 06/02/2024 10:03 AM ADVERTISING DESIGNER Pulse 75 06/02/2024 10:03 AM ADVERTISING DESIGNER Temperature 36.1 C (97 F) 02/10/2024 8:19 AM ADVERTISING DESIGNER Respiratory Rate 16 02/10/2024 8:19 AM ADVERTISING DESIGNER Oxygen Saturation 95% 06/02/2024 10:03 AM ADVERTISING DESIGNER Inhaled Oxygen Concentration - - Weight 62.4 kg (137 lb 9.6 oz) 06/02/2024 10:03 AM ADVERTISING DESIGNER Height 162.6 cm (5' 4) 06/02/2024 10:03 AM ADVERTISING DESIGNER Body Mass Index 23.62 06/02/2024 10:03 AM ADVERTISING DESIGNER Plan of Treatment Upcoming Encounters Date Type Department Care Team (Late st Contact Info) Description 06/22/2024 2:30 PM CDT Office Visit [facility] [address] [place] [address] [address] [place] [address] [place] [address] [facility] [address] [place] [address] Health Maintenance Due Date Last [...] 02/20/2022, 08/28/2011 Medical Devices Implanted Type Area [employer] Functional Analyst Device Identifier Shelf Expiration Date Model / Serial / Lot Valve Aortic 19mm Inspirus Resilia Tissue - [id number] Implanted:Qty: 1 on 01/01/2024 by Dahiana Ventura MD at [facility] N/A: Aortic Valve [employer] [id number] 11/12/2026 [id number] / [id number] / Description:No rinse per man ufacturer's instructions. Procedures Procedure Name Priority Date/Time Associated Diagnosis Comments T4,FREE Today 06/02/2024 11:10 AM ADVERTISING DESIGNER Atherosclerosis of coronary artery, unspecified vessel or lesion type, unspecified whether angina present, unspecified whether wiyot or transplanted heart S/P CABG x 3 Paroxysmal atrial fibrillation (HC) Paroxysmal A-fib (HC) COLLAZO (dyspnea on exertion) PRO-BNP Today 06/02/2024 11:10 AM ADVERTISING DESIGNER COLLAZO (dyspnea on exertion) COMP METABOLIC PANEL Today 06/02/2024 11:10 AM ADVERTISING DESIGNER Atherosclerosis of coronary artery, unspecified vessel or lesion type, unspecified whether angina present, unspecified whether wiyot or transplanted heart S/P CABG x 3 Paroxysmal atrial fibrillation (HC) Paroxysmal A-fib (HC) CBC W PLT NO DIFF Today 06/02/2024 11: 10 AM ADVERTISING DESIGNER Atherosclerosis of coronary artery, unspecified vessel or lesion type, unspecified whether angina present, unspecified whether wiyot or transplanted heart S/P CABG x 3 Paroxysmal atrial fibrillation (HC) Paroxysmal A-fib (HC) TSH Today 06/02/2024 11:10 AM ADVERTISING DESIGNER Atherosclerosis of coronary artery, unspecified vessel or lesion type, unspecified whether angina present, unspecified whether wiyot or transplanted heart S/P CABG x 3 Paroxysmal atrial fibrillation (HC) Paroxysmal A-fib (HC) EKG 12 LEAD Today 06/02/2024 9:51 AM ADVERTISING DESIGNER Paroxysmal atrial fibrillation (HC) from Last 3 Months Results * (ABNORMAL) TSH (06/02/2024 11:10 AM ADVERTISING DESIGNER) TSH 4.77(H) 0.27 - 4.20 uIU/mL 06/02/2024 12:05 PM ADVERTISING DESIGNER [facility] Blood BLOOD SPECIMEN / Unknown Venipuncture / Unknown 06/02/2024 11:10 AM ADVERTISING DESIGNER 06/02/2024 11:11 AM ADVERTISING DESIGNER Narrative [facility] - 06/02/2024 12:05 PM ADVERTISING DESIGNER In Adults, TSH values between 5.00 and 10.00 uIU/ml do not necessarily indicate the presence of Hypothyroidism. Correlation with clinical findings such as presence of goiter and/or Thyroperoxidase (TPO) Antibody may be helpful. For more information please refer to ANABELLA 2004; 291: 228-238. us Lindsey NAVARRO CHEMISTRY Final Res ult [facility] [address] [place] [address] * (ABNORMAL) CBC W PLT NO DIFF (06/02/2024 11:10 AM ADVERTISING DESIGNER) WHITE BLOOD COUNT 5.7 4.5 - 11.0 thou/cu mm 06/02/2024 11:24 AM ADVERTISING DESIGNER [facility] RED BLOOD COUNT 4.23 4.00 - 5.20 mil/cu mm 06/02/2024 11:24 AM [facility] HEMOGLOBIN 11.7(L) 12.0 - 16.0 g/dL 06/02/2024 11:24 AM [facility] HEMATOCRIT 36.6 33.0 - 51.0 % 06/02/2024 11:24 AM [facility] MCV 87 80 - 100 fL 06/02/2024 11:24 AM [facility] MCH 27.7 26.0 - 34.0 pg 06/02/2024 11:24 AM [facility] MCHC 32.0 32.0 - 36.0 g/dL 06/02/2024 11:24 AM [facility] RDW 18.6(H) 11.5 - 15.5 % 06/02/2024 11:24 AM [facility] PLATELET COUNT 272 140 - 440 thou/cu mm 06/02/2024 11:24 AM [facility] MPV 9.6 6.5 - 11.0 fL 06/02/2024 11:24 AM [facility] NRBC 0.0 % 06/02/2024 11:24 AM [facility] ABS NRBC 0.0 thou /cu mm 06/02/2024 11:24 AM [facility] Blood BLOOD SPECIMEN / Unknown Venipuncture / Unknown 06/02/2024 11:10 AM ADVERTISING DESIGNER 06/02/2024 11:11 AM ADVERTISING DESIGNER Narrative [facility] - 06/02/2024 11:24 AM ADVERTISING DESIGNER This procedure was originally ordered at [facility]. us Lindsey NAVARRO HEMATOLOGY Final Res ult [facility] [address] [place] [address] * T4,FREE (06/02/2024 11:10 AM ADVERTISING DESIGNER) Pathologist [facility] T4,FREE 1.62 0.93 - 1.70 ng/dL 06/02/2024 7:50 PM ADVERTISING DESIGNER [facility] Blood BLOOD SPECIMEN / Unknown Venipuncture / Unknown 06/02/2024 11:10 AM ADVERTISING DESIGNER 06/02/2024 11:11 AM ADVERTISING DESIGNER Lindsey NAVARRO CHEMISTRY Final Res ult [facility] [address] [place] [address], [place] * (ABNORMAL) PRO-BNP (06/02/2024 11:10 AM ADVERTISING DESIGNER) PRO-BNP 1,516(H) <450 pg/mL 06/02/2024 12:10 PM ADVERTISING DESIGNER [facility] Blood BLOOD SPECIMEN / Unknown Venipuncture / Unknown 06/02/2024 11:10 AM ADVERTISING DESIGNER 06/02/2024 11:11 AM ADVERTISING DESIGNER Narrative [facility] - 06/02/2024 12:10 PM ADVERTISING DESIGNER The following cut-points have been suggested for [...] Lindsey NAVARRO SEND OUTS Final Res ult [place] [address] [place] [address] * (ABNORMAL) COMP METABOLIC PANEL (06/02/2024 11:10 AM ADVERTISING DESIGNER) SODIUM 139 136 - 145 mmol/L 06/02/2024 12:05 PM [facility] POTASSIUM 3.3(L) 3.5 - 5.1 mmol/L 06/02/2024 12:05 PM [facility] CHLORIDE 102 98 - 107 mmol/L 06/02/2024 12:05 PM [facility] CO2,TOTAL 26 22 - 29 mmol/L 06/02/2024 12:05 PM [facility] ANION GAP 11 5 - 18 06/02/2024 12:05 PM [facility] GLUCOSE 152(H) 70 - 99 mg/dL 06/02/2024 12:05 PM [facility] CALCIUM 9.1 8.8 - 10.4 mg/dL 06/02/2024 12:05 PM [facility] Comment: Reference ranges for this test were updated on 02/04/2024 to reflect our healthy population more accurately. Reference range changes are not retroactively applied to results, but previous results using the same methodology can be interpreted in the context of the new reference range. BUN 14 8 - 23 mg/dL 06/02/2024 12:05 PM [facility] CREATININE 0.71 0.50 - 0.90 mg/dL 06/02/2024 12:05 PM [facility] BUN/CREAT RATIO 20 10 - 20 12:05 PM [facility] eGFR 83(L) >90 mL/min/1.7 3m2 06/02/2024 12:05 PM [facility] Comment:As of 2021, eG FR is calculated by the CKD-EPI creatinine equation without race adjustment. eGFR can be influenced by muscle mass, exercise, and diet. The reported eGFR is an estimation only and is only applicable if the renal function is stable. ALBUMIN 3.8(L) 4.0 - 4.9 g/dL 06/02/2024 12:05 PM [facility] PROTEIN,TOTAL 7.4 6.0 - 8.0 g/dL 06/02/2024 12:05 PM [facility] BILIRUBIN,TOTAL 0.2 0.0 - 1.2 mg/dL 06/02/2024 12:05 PM ADVERTISING DESIGNER [facility] ALK PHOSPHATASE 66 35 - 104 IU/L 06/02/2024 12:05 PM ADVERTISING DESIGNER [facility] ALT (SGPT) 30 10 - 35 IU/L 06/02/2024 12:05 PM ADVERTISING DESIGNER [facility] AST (SGOT) 44(H) 10 - 35 IU/L 06/02/2024 12:05 PM ADVERTISING DESIGNER [facility] Blood BLOOD SPECIMEN / Unknown Venipuncture / Unknown 06/02/2024 11:10 AM ADVERTISING DESIGNER 06/02/2024 11:11 AM ADVERTISING DESIGNER Lindsey NAVARRO CHEMISTRY Final Res ult [facility] [address] [place] [address] from Last 3 Months Insurance MEDICARE PART A HB ONLY [place] BLUE MR PB ONLY MEDICARE PART B HB ONLY [place] BLUE HB ONLY HC [employer] PPS Advance [...] 9:05 AM 06/14/2005 11:46 AM Care Teams Hand Lens Polisher Relationship Specialty Start Date End Date Jarrod, Brian C, MD PCP - General 08/19/[address] [address] 01/11/24
--- OUTSIDE RECORDS SUMMARY | 2024-06-03 18:22 | XMS_ITS | Encounter Summary ---
Author Organization [facility] Address [address] [place] [address] Care Team Providers Care Auto Rebuilder Name Role Phone None Reported, Pcp Primary Care Provider Unavail able Reason for Referral * Outpatient (Routine) - Authorized Specialty Diagnoses / Procedures Referred By Godwinac t Referred To Contact Diagnoses Replacement Aortic Valve Tissue Coronary Arterial Bypass Graft Status Post Personal History Procedures Cardiac Rehab [place] [address] Phone: tel: fax: [facility] Region Referral ID Status Reason Start Date Expiration Date V isits Requested Visits Authorized [id number] Authorized 02/20/2024 02/19/2025 45 45 D SERVICES ARCHITECT Reason for Visit * Outpatient (Routine) - Authorized Specialty Diagnoses / Procedures Referred By Jordan t Referred To Contact Diagnoses Replacement Aortic Valve Tissue Coronary Arterial Bypass Graft Status Post Personal History Procedures Cardiac Rehab [place] [address] Phone: tel: fax: [facility] Region Referral ID Status Reason Start Date Expiration Date V isits Requested Visits Authorized [id number] Authorized 02/20/2024 02/19/2025 45 45 Encounter Details Date Type Department Care Team (Latest Contact Info) Description 05/29/2024 1:51 PM CLOUD SERVICES ARCHITECT - 05/29/2024 11:59 PM CLOUD SERVICES ARCHITECT Hospital Encounter Department of Cardiac Rehabilitation in [place], [place] [address] [place] [phone] Keon Peace M.D. [address] [place] [phone] Replacement Aortic Valve Tissue; Coronary Arterial Bypass Graft Status Post Personal History Discharge Disposition: Home or Self Care Social History Tobacco Use Types Packs/Day Years Used Date Smoking Tobacco: Never Dental Answer Date Recorded Dental: Regular Dentist Unknown 12/04/19 24 Comments Unknown Sex and Gender Information Value Date Recorded Sex Assigned at Not on file Legal Sex Female 4:49 PM CLOUD SERVICES ARCHITECT Gender Identity Not on file Sexual Orientation Not on file documented as of this encounter Plan of Treatment Upcoming Encounters Date Type Department Care Team (Late st Contact Info) Description 06/05/2024 2:00 PM CLOUD SERVICES ARCHITECT Appointment Department of Cardiac Rehabilitation in [place] [address] [place] [address] Keon Peace M.D. [address] [place] [phone] 06/08/2024 2:00 PM CDT Appointment Department of Cardiac Rehabilitation in [place] [address] [place] [address] Keon Peace M.D. [address] [place] [phone] 06/10/2024 2:00 PM CDT Appointment Department of Cardiac Rehabilitation in [place] [address] [place] [address] Keon Peace M.D. [address] [place] [phone] 06/12/2024 2:00 PM CDT Appointment Department of Cardiac Rehabilitation in [place] [address] [place] [address] Keon Peace M.D. [address] [place] [phone] 06/15/2024 2:00 PM CDT Appointment Department of Cardiac Rehabilitation in [place], [place] [address] [place] [place] [phone] Keon Peace M.D. [address] [place] [phone] 06/17/2024 2:00 PM CDT Appointment Department of Cardiac Rehabilitation in [place], [place] [address] [place] [phone] Keon Peace M.D. [address] [place] [phone] Scheduled Orders Name Type Priority Associated Diagnoses Orde r Schedule Cardiac Rehab Program Card Rehab Routine Replacement Aortic Valve Tissue Coronary Arterial Bypass Graft Status Post Personal History Once for 1 Occurrences starting 05/29/2024 until 05/29/2024 documented as of this encounter Visit Diagnoses Diagnosis Replacement Aortic Valve Tissue Coronary Arterial Bypass Graft Status Post Personal History documented in this encounter Care Teams Auto Rebuilder Relationship Specialty Start Date End Date None Reported, Pcp PCP - General Family Medicine 02/28/24 documented as of this encounter
--- OUTSIDE RECORDS SUMMARY | 2024-06-03 18:22 | XMS_ITS | Encounter Summary ---
Author Organization [facility] Address [address] [place] [address] Care Team Providers Care Desizing Machine Operator Name Role Phone None Reported, Pcp Primary Care Provider Unavail able Reason for Referral * Outpatient (Routine) - Authorized Specialty Diagnoses / Procedures Referred By Godwinac t Referred To Contact Diagnoses Replacement Aortic Valve Tissue Coronary Arterial Bypass Graft Status Post Personal History Procedures Cardiac Rehab [place] [address] Phone: tel: fax: [facility] Region Referral ID Status Reason Start Date Expiration Date V isits Requested Visits Authorized [id number] Authorized 02/20/2024 02/19/2025 45 45 MAINTENANCE WORKER Reason for Visit * Outpatient (Routine) - Authorized Specialty Diagnoses / Procedures Referred By Jordan t Referred To Contact Diagnoses Replacement Aortic Valve Tissue Coronary Arterial Bypass Graft Status Post Personal History Procedures Cardiac Rehab [place] [address] Phone: tel: fax: [facility] Region Referral ID Status Reason Start Date Expiration Date V isits Requested Visits Authorized [id number] Authorized 02/20/2024 02/19/2025 45 45 Encounter Details Date Type Department Care Team (Latest Contact Info) Description 06/01/2024 1:49 PM RAIL MAINTENANCE WORKER - 06/01/2024 11:59 PM RAIL MAINTENANCE WORKER Hospital Encounter Department of Cardiac Rehabilitation in [place], [place] [address] [place] [phone] Keon Peace M.D. [address] [place] [phone] Replacement Aortic Valve Tissue; Coronary Arterial Bypass Graft Status Post Personal History Discharge Disposition: Home or Self Care Social History Tobacco Use Types Packs/Day Years Used Date Smoking Tobacco: Never Dental Answer Date Recorded Dental: Regular Dentist Unknown 12/04/19 24 Comments Unknown Sex and Gender Information Value Date Recorded Sex Assigned at Not on file Legal Sex Female 4:49 PM RAIL MAINTENANCE WORKER Gender Identity Not on file Sexual Orientation Not on file documented as of this encounter Plan of Treatment Upcoming Encounters Date Type Department Care Team (Late st Contact Info) Description 06/05/2024 2:00 PM RAIL MAINTENANCE WORKER Appointment Department of Cardiac Rehabilitation in [place] [address] [place] [phone] Keon Peace M.D. [address] [place] [phone] 06/08/2024 2:00 PM CDT Appointment Department of Cardiac Rehabilitation in [place] [address] [place] [address] Keon Peace M.D. [address] [place] [phone] 06/10/2024 2:00 PM CDT Appointment Department of Cardiac Rehabilitation in [place] [address] [place] [address] Keon Peace M.D. [address] [place] [phone] 06/12/2024 2:00 PM CDT Appointment Department of Cardiac Rehabilitation in [place] [address] [place] [address] Keon Peace M.D. [address] [place] [address] 06/15/2024 2:00 PM CDT Appointment Department of Cardiac Rehabilitation in [place], [place] [address] [facility] [place] [phone] Keon Peace M.D. [address] [place] [phone] 06/17/2024 2:00 PM CDT Appointment Department of Cardiac Rehabilitation in [place], [place] [address] [place] [phone] Keon Peace M.D. [address] [place] [address] Scheduled Orders Name Type Priority Associated Diagnoses Orde r Schedule Cardiac Rehab Program Card Rehab Routine Replacement Aortic Valve Tissue Coronary Arterial Bypass Graft Status Post Personal History Once for 1 Occurrences starting 06/01/2024 until 06/01/2024 documented as of this encounter Visit Diagnoses Diagnosis Replacement Aortic Valve Tissue Coronary Arterial Bypass Graft Status Post Personal History documented in this encounter Care Teams Desizing Machine Operator Relationship Specialty Start Date End Date None Reported, Pcp PCP - General Family Medicine 02/28/24 documented as of this encounter
--- OUTSIDE RECORDS SUMMARY | 2024-06-03 18:22 | XMS_ITS | Encounter Summary ---
Author Organization [facility] Address [address] [place] [address] Care Team Providers Care Fund Controller Name Role Phone None Reported, Pcp Primary Care Provider Unavail able Reason for Referral * Outpatient (Routine) - Authorized Specialty Diagnoses / Procedures Referred By Godwinac t Referred To Contact Diagnoses Replacement Aortic Valve Tissue Coronary Arterial Bypass Graft Status Post Personal History Procedures Cardiac Rehab Program [place] [address] Phone: tel: fax: [facility] Region Referral ID Status Reason Start Date Expiration Date V isits Requested Visits Authorized [id number] Authorized 02/20/2024 02/19/2025 45 45 ETING COMMUNICATIONS ASSOCIATE Reason for Visit * Outpatient (Routine) - Authorized Specialty Diagnoses / Procedures Referred By Jordan t Referred To Contact Diagnoses Replacement Aortic Valve Tissue Coronary Arterial Bypass Graft Status Post Personal History Procedures Cardiac Rehab Program [place] [address] Phone: tel: fax: [facility] Region Referral ID Status Reason Start Date Expiration Date V isits Requested Visits Authorized [id number] Authorized 02/20/2024 02/19/2025 45 45 Encounter Details Date Type Department Care Team (Latest Contact Info) Description 05/27/2024 1:52 PM MARKETING COMMUNICATIONS ASSOCIATE - 05/27/2024 11:59 PM MARKETING COMMUNICATIONS ASSOCIATE Hospital Encounter Department of Cardiac Rehabilitation in [place], [place] [address] [place] [phone] Keon Peace M.D. [address] [place] [phone] Replacement Aortic Valve Tissue; Coronary Arterial Bypass Graft Status Post Personal History Discharge Disposition: Home or Self Care Social History Tobacco Use Types Packs/Day Years Used Date Smoking Tobacco: Never Dental Answer Date Recorded Dental: Regular Dentist Unknown 12/04/19 24 Comments Unknown Sex and Gender Information Value Date Recorded Sex Assigned at Not on file Legal Sex Female 4:49 PM MARKETING COMMUNICATIONS ASSOCIATE Gender Identity Not on file Sexual Orientation Not on file documented as of this encounter Plan of Treatment Upcoming Encounters Date Type Department Care Team (Late st Contact Info) Description 06/05/2024 2:00 PM MARKETING COMMUNICATIONS ASSOCIATE Appointment Department of Cardiac Rehabilitation in [place] [address] [place] [address] Keon Peace M.D. [address] [place] [phone] 06/08/2024 2:00 PM CDT Appointment Department of Cardiac Rehabilitation in [place] [address] [place] [address] Keon Peace M.D. [address] [place] [phone] 06/10/2024 2:00 PM CDT Appointment Department of Cardiac Rehabilitation in [place] [address] [place] [address] Keon Peace M.D. [address] [place] [phone] 06/12/2024 2:00 PM CDT Appointment Department of Cardiac Rehabilitation in [place] [address] [place] [address] Keon Peace M.D. [address] [place] [phone] 06/15/2024 2:00 PM CDT Appointment Department of Cardiac Rehabilitation in [place], [place] [address] [place] [phone] Keon Peace M.D. [address] [place] [phone] 06/17/2024 2:00 PM CDT Appointment Department of Cardiac Rehabilitation in [place], [place] [address] [place] [phone] Keon Peace M.D. [address] [place] [phone] Scheduled Orders Name Type Priority Associated Diagnoses Orde r Schedule Cardiac Rehab Program Card Rehab Routine Replacement Aortic Valve Tissue Coronary Arterial Bypass Graft Status Post Personal History Once for 1 Occurrences starting 05/27/2024 until 05/27/2024 documented as of this encounter Visit Diagnoses Diagnosis Replacement Aortic Valve Tissue Coronary Arterial Bypass Graft Status Post Personal History documented in this encounter Care Teams Fund Controller Relationship Specialty Start Date End Date None Reported, Pcp PCP - General Family Medicine 02/28/24 documented as of this encounter
[2024-06-03 18:34] LABS: Troponin I* 0.01 ng/mL (0.01-0.04)
[2024-06-03] MEDS: POTASSIUM BICARB 25 MEQ EFFERVESCENT TAB 50 MEQ PO (19:21)
== END 2024-06-03 19:24 | disposition home or self-care (01) ==
PROVIDERS: Emergency Provider Student in an Organized Health Care Education/Training Program; PCP Family Medicine
DX: S09.90XA Unspecified injury of head, initial encounter (principal); W19.XXXA Unspecified fall, initial encounter
CPT/HCPCS: 36415; 70450; 72125; 80048; 83735; 84484; 85025; 85610; 93005; 99284; 99285; A9270

== ENCOUNTER 2024-06-23 20:55 | Emergency (ER) | payer MEDICARE, BC, SELFPAY ==
--- OUTSIDE RECORDS SUMMARY | 2024-06-23 20:58 | XMS_ITS | Clinical Summary ---
Author Organization [facility] Address [address] [place] [address] Care Team Providers Care Vehicle Fare Collector Name Role Phone None Reported, Pcp Primary Care Provider Unavail able Source Comments Patient records contain information from all sites at [facility]. For routine questions regarding patient records, call [phone] during business hours, M-F 8:00 AM - 5:00 PM Central Time. Record requests for emergency care only can be directed to [phone] at any time.[facility] Allergies Active Allergy Reactions Criticality Noted Date Comments Penicillin Itching 02/20/2024 Penicillins Hives only, no other systemic symptoms,Itching Low 06/12/2005 Medications No known medications Active Problems No known active problems Encounters Date Type Department Care Team Description 06/15/2024 1:45 PM CDT - 06/15/2024 11:59 PM CDT Hospital Encounter Department of Cardiac Rehabilitation in [address] [address] Keon Peace M.D. Coronary Arterial Bypass Graft Status Post Personal History (Primary Dx); Replacement Aortic Valve Tissue Discharge Disposition: Home or Self Care 06/15/2024 Plan of Care Documentation Department of Cardiac Rehabilitation in [address] [address] 06/12/2024 1:45 PM CDT - 06/12/2024 11:59 PM CDT Hospital Encounter Department of Cardiac Rehabilitation in [address] [address] Keon Peace M.D. Replacement Aortic Valve Tissue; Coronary Arterial Bypass Graft Status Post Personal History Discharge Disposition: Home or Self Care 06/11/2024 Plan of Care Documentation Department of Cardiac Rehabilitation in [address] [address] 06/10/2024 1:39 PM CDT - 06/10/2024 11:59 PM CDT Hospital Encounter Department of Cardiac Rehabilitation in [address] [address] Keon Peace M.D. Replacement Aortic Valve Tissue; Coronary Arterial Bypass Graft Status Post Personal History Discharge Disposition: Home or Self Care 06/08/2024 1:46 PM CDT - 06/08/2024 11:59 PM CDT Hospital Encounter Department of Cardiac Rehabilitation in [address] [address] Keon Peace M.D. Replacement Aortic Valve Tissue; Coronary Arterial Bypass Graft Status Post Personal History Discharge Disposition: Home or Self Care 06/05/2024 1:46 PM SKIDWAY WORKER - 06/05/2024 11:59 PM SKIDWAY WORKER Hospital Encounter Department of Cardiac Rehabilitation in [address] [address] Keon Peace M.D. Replacement Aortic Valve Tissue; Coronary Arterial Bypass Graft Status Post Personal History Discharge Disposition: Home or Self Care 06/01/2024 1:49 PM SKIDWAY WORKER - 06/01/2024 11:59 PM SKIDWAY WORKER Hospital Encounter Department of Cardiac Rehabilitation in [address] [address] Keon Peace M.D. Replacement Aortic Valve Tissue; Coronary Arterial Bypass Graft Status Post Personal History Discharge Disposition: Home or Self Care 05/29/2024 1:51 PM SKIDWAY WORKER - 05/29/2024 11:59 PM SKIDWAY WORKER Hospital Encounter Department of Cardiac Rehabilitation in [address] [address] Keon Peace M.D. Replacement Aortic Valve Tissue; Coronary Arterial Bypass Graft Status Post Personal History Discharge Disposition: Home or Self Care 05/27/2024 1:52 PM SKIDWAY WORKER - 05/27/2024 11:59 PM SKIDWAY WORKER Hospital Encounter Department of Cardiac Rehabilitation in [address] [place] [address] Keon Peace M.D. Replacement Aortic Valve Tissue; Coronary Arterial Bypass Graft Status Post Personal History Discharge Disposition: Home or Self Care 05/14/2024 Plan of Care Documentation Department of Cardiac Rehabilitation in [address] [place] [address] 05/14/2024 Documentation Department of Cardiac Rehabilitation in [address] [place] [address] Jyoti King C.Ph.T. 05/14/2024 Clinical Communication Department of Cardiac Rehabilitation in [address] [place] [address] Jyoti King C.Ph.T. 05/01/2024 1:50 PM SKIDWAY WORKER - 05/01/2024 11:59 PM SKIDWAY WORKER Hospital Encounter Department of Cardiac Rehabilitation in [address] [place] [address] Keon Peace M.D. Replacement Aortic Valve Tissue; Coronary Arterial Bypass Graft Status Post Personal History Discharge Disposition: Home or Self Care 04/29/2024 1:45 PM SKIDWAY WORKER - 04/29/2024 11:59 PM SKIDWAY WORKER Hospital Encounter Department of Cardiac Rehabilitation in [address] [address] Keon Peace M.D. Replacement Aortic Valve Tissue; Coronary Arterial Bypass Graft Status Post Personal History Discharge Disposition: Home or Self Care 04/27/2024 1:56 PM SKIDWAY WORKER - 04/27/2024 11:59 PM SKIDWAY WORKER Hospital Encounter Department of Cardiac Rehabilitation in [address] [place] [address] Keon Peace M.D. Replacement Aortic Valve Tissue; Coronary Arterial Bypass Graft Status Post Personal History Discharge Disposition: Home or Self Care 04/24/2024 1:43 PM SKIDWAY WORKER - 04/24/2024 11:59 PM SKIDWAY WORKER Hospital Encounter Department of Cardiac Rehabilitation in [address] [address] Keon Peace M.D. Replacement Aortic Valve Tissue; Coronary Arterial Bypass Graft Status Post Personal History Discharge Disposition: Home or Self Care 04/22/2024 1:59 PM SKIDWAY WORKER - 04/22/2024 11:59 PM SKIDWAY WORKER Hospital Encounter Department of Cardiac Rehabilitation in [address] [address] Keon Peace M.D. Replacement Aortic Valve Tissue; Coronary Arterial Bypass Graft Status Post Personal History Discharge Disposition: Home or Self Care 04/20/2024 1:50 PM SKIDWAY WORKER - 04/20/2024 11:59 PM SKIDWAY WORKER Hospital Encounter Department of Cardiac Rehabilitation in [address] [address] Keon Peace M.D. Replacement Aortic Valve Tissue; Coronary Arterial Bypass Graft Status Post Personal History Discharge Disposition: Home or Self Care 04/17/2024 1:44 PM SKIDWAY WORKER - 04/17/2024 11:59 PM SKIDWAY WORKER Hospital Encounter Department of Cardiac Rehabilitation in [address] [address] Keon Peace M.D. Replacement Aortic Valve Tissue; Coronary Arterial Bypass Graft Status Post Personal History Discharge Disposition: Home or Self Care 04/16/2024 Plan of Care Documentation Department of Cardiac Rehabilitation in [address] [address] 04/15/2024 1:53 PM SKIDWAY WORKER - 04/15/2024 11:59 PM SKIDWAY WORKER Hospital Encounter Department of Cardiac Rehabilitation in [address] [address] Keon Peace M.D. Replacement Aortic Valve Tissue; Coronary Arterial Bypass Graft Status Post Personal History Discharge Disposition: Home or Self Care 04/13/2024 1:41 PM SKIDWAY WORKER - 04/13/2024 11:59 PM SKIDWAY WORKER Hospital Encounter Department of Cardiac Rehabilitation in [address] [address] Keon Peace M.D. Replacement Aortic Valve Tissue; Coronary Arterial Bypass Graft Status Post Personal History Discharge Disposition: Home or Self Care 04/10/2024 1:44 PM SKIDWAY WORKER - 04/10/2024 11:59 PM SKIDWAY WORKER Hospital Encounter Department of Cardiac Rehabilitation in [address] [address] Keon Peace M.D. Replacement Aortic Valve Tissue; Coronary Arterial Bypass Graft Status Post Personal History Discharge Disposition: Home or Self Care 04/08/2024 1:43 PM SKIDWAY WORKER - 04/08/2024 11:59 PM SKIDWAY WORKER Hospital Encounter Department of Cardiac Rehabilitation in [address] [address] Keon Peace M.D. Replacement Aortic Valve Tissue; Coronary Arterial Bypass Graft Status Post Personal History Discharge Disposition: Home or Self Care 04/06/2024 1:46 PM SKIDWAY WORKER - 04/06/2024 11:59 PM SKIDWAY WORKER Hospital Encounter Department of Cardiac Rehabilitation in [address] [address] Keon Peace M.D. Replacement Aortic Valve Tissue; Coronary Arterial Bypass Graft Status Post Personal History Discharge Disposition: Home or Self Care 04/03/2024 1:37 PM SKIDWAY WORKER - 04/03/2024 11:59 PM SKIDWAY WORKER Hospital Encounter Department of Cardiac Rehabilitation in [address] [address] Keon Peace M.D. Replacement Aortic Valve Tissue; Coronary Arterial Bypass Graft Status Post Personal History Discharge Disposition: Home or Self Care 03/30/2024 1:33 PM SKIDWAY WORKER - 03/30/2024 11:59 PM SKIDWAY WORKER Hospital Encounter Department of Cardiac Rehabilitation in [address] [address] Keon Peace M.D. Replacement Aortic Valve Tissue; Coronary Arterial Bypass Graft Status Post Personal History Discharge Disposition: Home or Self Care 03/27/2024 12:06 PM SKIDWAY WORKER - 03/27/2024 11:59 PM SKIDWAY WORKER Hospital Encounter Department of Cardiac Rehabilitation in [place] [address] [place] [address] Keon Peace M.D. Replacement Aortic Valve Tissue; Coronary Arterial Bypass Graft Status Post Personal History Discharge Disposition: Home or Self Care from Last 3 Months Social History Tobacco Use Types Packs/Day Years Used Date Smoking Tobacco: Never PHQ-2 Answer Date Recorded PHQ-2 Score 0 06/15/2024 Depression Answer Date Recor ded PHQ-9 Total Score (max 27) 0 06/15 Dental Answer Date Recorded Dental: Regular Dentist Unknown 12/04/19 24 Comments Unknown Sex and Gender Information Value Date Recorded Sex Assigned at Not on file Legal Sex Female 4:49 PM SKIDWAY WORKER Gender Identity Not on file Sexual Orientation Not on file Last Filed Vital Signs Vital Sign Reading Time Taken Comments Blood Pressure 141/70 02/28/2024 3:40 PM SKIDWAY WORKER Pulse 80 02/28/2024 3:40 PM SKIDWAY WORKER Temperature 36.5 C (97.7 F) 02/28/2024 3:40 PM SKIDWAY WORKER Respiratory Rate 17 02/28/2024 3:40 PM SKIDWAY WORKER Oxygen Saturation 95% 02/28/2024 3:40 PM SKIDWAY WORKER Inhaled Oxygen Concentration - - Weight 65.2 kg (143 lb 11.2 oz) 02/28/2024 2:57 PM SKIDWAY WORKER Height 162 cm (5' 3.78) 10/31/2012 4:13 PM CDT Body Mass Index - - Plan of Treatment Health Maintenance Due Date Last Done Comments RSV vaccine - (32-36 weeks) or 60+ years (1 - 1-dose 75+ series) 2012 COVID-19 Vaccine (2 - season) 2023 06/18/2020 Depression Screening (Annual PHQ-2) 04/01/2024 DTaP,Tdap,and Td Vaccines (3 - Td or Tdap) 02/21/2032 02/20/2022, 08/28/2011, 07/19/2006, Additional history exists Pneumococcal vaccine (50+ years) Completed 11/16/2014, 08/04/2007 Zoster Vaccines Completed 12/15/2018, 10/14/2018 Influenza Vaccine Completed 01/17/2024, , 02/16/2021, Additional history exists Fall Risk Screen (Annual) Completed 06/11/2024 IPV Vaccines Aged Out No longer eligi ble based on patient's age to complete this topic Procedures Procedure Name Priority Date/Time Associated Diagnosis Comments 6 MINUTE WALK Routine 06/15/2024 2:00 PM CDT Coronary Arterial Bypass Graft Status Post Personal History from Last 3 Months Results * 6 MINUTE WALK (06/15/2024 2:00 PM CDT) Narrative Skye Juarez - 06/15/2024 2:00 PM CDT Skye Juarez 06/15/2024 2:11 PM Six Minute Walk Performed by: Skye Juarez Authorized by: Keon Peace M.D. Were medications taken in the last 24 hours?: yes PRE WALK Assistive Device: None 6 Min Walk Distance Type: Hallway Height (cm): 162 Weight (kg): 63 BMI: 24 Resting Heart Rate: 72 Heart Rate Source: Pulse Oximeter Resp Rate: Resting SpO2: 94 SpO2 Site: Finger Resting BP: 130/68 BP Cuff Arm: Right BP Cuff Size: RegularSupplemental Oxygen used: Supplemental Oxygen Not Used Ant Dyspnea: 0 - Nothing at all Ant Fatigue: 0 - Nothing at all POST WALK Heart Rate: 97 Heart Rate Source: Pulse Oximeter SpO2: 88 BP: 152/60 BP Cuff Side: Left Ant Dyspnea: 0.5 - Very, Very Slight Ant Fatigue: 0 - Nothing at all Ant Rating of Perceived Exertion: 12 - Moderate Time of Test: 14:00 CDT Total Distance Walked (Feet): 1132 Total Distance Walked (Meters): 345.03 Total # of Times Stopped: 0 Time Stopped (Seconds): 0 Time Walked (Seconds): 360 CALCULATIONS Estimated MPH: 2.1 Estimated METs: 2.61 % of Predicted Distance: 94.31 us Keon Peace M.D. CV STRESS PROCEDURES Daya l Result from Last 3 Months Insurance [facility] MEDICARE Care Teams Vehicle Fare Collector Relationship Specialty Start Date End Date None Reported, Pcp PCP - General Family Medicine 02/28/24
--- OUTSIDE RECORDS SUMMARY | 2024-06-23 20:58 | XMS_ITS | Encounter Summary ---
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 [address] Phone: tel: fax: 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 [address] Phone: tel: fax: [facility] Region Referral ID Status Reason Start Date Expiration Date V isits Requested Visits Authorized [id number] Canceled 02/20/2024 02/19/2025 45 45 Encounter Details Date Type Department Care Team (Latest Contact Info) Description 05/29/2024 1:51 PM SHINGLE CATCHER - 05/29/2024 11:59 PM SHINGLE CATCHER Hospital Encounter Department of Cardiac Rehabilitation in [place], [place] [address] [place] [phone] Keon Peace M.D. [address] [place] [phone] Replacement Aortic Valve Tissue; Coronary Arterial Bypass Graft Status Post Personal History Discharge Disposition: Home or Self Care Social History Tobacco Use Types Packs/Day Years Used Date Smoking Tobacco: Never Dental Answer Date Recorded Dental: Regular Dentist Unknown 12/04/19 Comments Unknown Sex and Gender Information Value Date Recorded Sex Assigned at Not on file Legal Sex Female 4:49 PM SHINGLE CATCHER Gender Identity Not on file Sexual Orientation Not on file documented as of this encounter Plan of Treatment Scheduled Orders Name Type Priority Associated Diagnoses Orde r Schedule Cardiac Rehab Program Card Rehab Routine 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
--- OUTSIDE RECORDS SUMMARY | 2024-06-23 20:58 | XMS_ITS | Encounter Summary ---
Author Organization [facility] Address [address] [place] [address] Care Team Providers Care Rooming House Operator Name Role Phone None Reported, Pcp Primary Care Provider Unavail able Encounter Details Date Type Department Care Team (Latest Contact Info) Description 05/14/2024 Clinical Communication Department of Cardiac Rehabilitation in [place], [place] [address] [place] [address] Jyoti King C.Ph.T. Social History Tobacco Use Types Packs/Day Years Used Date Smoking Tobacco: Never Dental Answer Date Recorded Dental: Regular Dentist Unknown 12/04/19 24 Comments Unknown Sex and Gender Information Value Date Recorded Sex Assigned at Not on file Legal Sex Female 4:49 PM COMBER FIXER Gender Identity Not on file Sexual Orientation Not on file documented as of this encounter Plan of Treatment Not on file documented as of this encounter Visit Diagnoses Not on filedocumented in this encounter Care Teams Rooming House Operator Relationship Specialty Start Date End Date None Reported, Pcp PCP - General Family Medicine 02/28/24 documented as of this encounter
--- OUTSIDE RECORDS SUMMARY | 2024-06-23 20:58 | XMS_ITS | Encounter Summary ---
Author Organization [facility] Address [address] [place] [address] Care Team Providers Care Stone Setter Name Role Phone None Reported, Pcp Primary Care Provider Unavail able Encounter Details Date Type Department Care Team (Late st Contact Info) Description 05/14/2024 Documentation Department of Cardiac Rehabilitation in [place], [place] [address] [place] [address] Jyoti King C.Ph.T. Social History Tobacco Use Types Packs/Day Years Used Date Smoking Tobacco: Never Dental Answer Date Recorded Dental: Regular Dentist Unknown 12/04/19 24 Comments Unknown Sex and Gender Information Value Date Recorded Sex Assigned at Not on file Legal Sex Female 4:49 PM RAIL TECHNICIAN Gender Identity Not on file Sexual Orientation Not on file documented as of this encounter Plan of Treatment Not on file documented as of this encounter Visit Diagnoses Not on filedocumented in this encounter Care Teams Stone Setter Relationship Specialty Start Date End Date None Reported, Pcp PCP - General Family Medicine 02/28/24 documented as of this encounter
--- OUTSIDE RECORDS SUMMARY | 2024-06-23 20:58 | XMS_ITS | Encounter Summary ---
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 [address] Phone: tel: fax: [facility] Region Referral ID Status Reason Start Date Expiration Date V isits Requested Visits Authorized [id number] Canceled 02/20/2024 02/19/2025 45 45 Encounter Details Date Type Department Care Team (Latest Contact Info) Description 06/01/2024 1:49 PM CARPENTER SHIP - 06/01/2024 11:59 PM CARPENTER SHIP Hospital Encounter Department of Cardiac Rehabilitation in [place], [place] [address] [place] [phone] Keon Peace M.D. [address] [place] [phone] Replacement Aortic Valve Tissue; Coronary Arterial Bypass Graft Status Post Personal History Discharge Disposition: Home or Self Care Social History Tobacco Use Types Packs/Day Years Used Date Smoking Tobacco: Never Dental Answer Date Recorded Dental: Regular Dentist Unknown 12/04/19 Comments Unknown Sex and Gender Information Value Date Recorded Sex Assigned at Not on file Legal Sex Female 4:49 PM CARPENTER SHIP Gender Identity Not on file Sexual Orientation [...] History documented in this encounter Care Teams Hand Roller Relationship Specialty Start Date End Date None Reported, Pcp PCP - General Family Medicine 02/28/24 documented as of this encounter
--- OUTSIDE RECORDS SUMMARY | 2024-06-23 20:58 | XMS_ITS | Encounter Summary ---
Author Organization [facility] Address [address] [place] [address] Care Team Providers Care Business Development Director Name Role Phone None Reported, Pcp Primary Care Provider Unavail able Encounter Details Date Type Department Care Team (Latest Contact Info) Description 05/14/2024 Plan of Care Documentation Department of Cardiac Rehabilitation in [place] [address] [place] [address] Social History Tobacco Use Types Packs/Day Years Used Date Smoking Tobacco: Never Dental Answer Date Recorded Dental: Regular Dentist Unknown 12/04/19 24 Comments Unknown Sex and Gender Information Value Date Recorded Sex Assigned at Not on file Legal 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 - 05/14/2024 10:00 AM CST Images from the original note were not included. Ms. Cody (88 y.o., : 1935, ) was referred to the [facility] Cardiac Rehab Program on 02/10/2024, by Lakisha and has completed 28 sessions out of the 36 prescribed. 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 Patient has attended 11 sessions of cardiac rehab and feels it has been going well. Patient had Aortic valve replace ment with [id number] mm tissue valve, Coronary artery bypass grafting [...] % 55 % 55 % 55 % [place] [employer] Functional Class I - Normal [...] essions. Exercise Education Documentation Exercise Program Guidelines [id number], taught by Gosia Rivas R.N. at 03/13/2024 10:24 AM. Learner: Patient Readiness: Eager Method: Explanation Response: Able to Teach Back Move More and Sit Less the NEAT Way [id number], taught by Gosia Rivas R.N. at 04/22/2024 1:59 PM. Learner: Patient Readiness: Eager Method: Explanation Response: Able to Teach Back Benefits and Barriers Of Exercise [id number], taught by Gosia Rivas R.NJacklyn at 04/20/2024 1:52 PM. Learner: Patient Readiness: Eager Method: Explanation Response: Able to Teach Back Interval Training [id number], taught by Skye Juarez at 03/23/2024 3:09 PM. Learner: Patient Readiness: Eager Method: Explanation, Handout, Class / Group Response: Able to Teach Back Stretches [id number], taught by kSye Juarez at 03/18/2024 3:09 PM. Learner: Patient [...] Nutrition Guidelines for Cholesterol, Triglycerides and Sodium [id number], taught by Skye Juarez at 04/03/2024 3:01 PM. Learner: Patient Readiness: Eager Method: Explanation, Handout, Class / Group Response: Able to Teach Back How to Read a Food Label [id number], taught by Gosia Rivas R.N. at 03/30/2024 2:47 PM. Learner: Patient Readiness: Eager Method: Explanation Response: Able to Teach Back Mediterranean Diet Pyramid: Guidelines for Adults [id number], taught by Skye Juarez at 02/26/2024 3:06 PM. Learner: Patient Readiness: Eager Method: Explanation, Handout, Class / Group Response: Able to Teach Back Mediterranean Diet [id number], taught by Skye Juarez at 02/26/2024 3:06 [...] upcoming sessions. Psychosocial Education Documentation Relaxation Techniques [id number], taught by Skye Juarez at 04/10/2024 3:02 PM. Learner: Patient Readiness: Eager Method: Explanation, Handout, Class / Group Response: Able to Teach Back Stress Reducers [id number], taught by Skye Juarez at 04/08/2024 3:04 PM. Learner: Patient Readiness: Eager Method: Explanation, Handout, Class / Group Response: Able to Teach Back Stress Management [id number], taught by Gosia Rivas R.N. at 04/08/2024 1:47 PM. Learner: Patient Readiness: Eager Method: Explanation Response: Able to Teach Back Knowing About Depression Finding Your Way [id number], taught by Skye Juarez at 04/06/2024 3:04 PM. Learner: Patient Readiness: Eager Method: Explanation, Handout, Class / Group Response: Able to Teach Back My Road to Better Health Sleep [id number], taught by Gosia Rivas R.N. at 03/04/2024 [...] High Blood Pressure Also Known as Hypertension [id number], taught by Gosia Rivas R.N. at 04/15/2024 2:02 PM. Learner: Patient Readiness: Eager Method: Explanation Response: Able to Teach Back Risk Factors For Heart Disease [id number], taught by Skye Juarez at 03/06/2024 2:47 [...] Medication Compliance Education Documentation Managing Your Medications [id number], taught by Skye Juarez at 04/17/2024 2:37 PM. Learner: Patient Readiness: Eager Method: Explanation, Handout, Class / Group Response: Able to Teach Back Medications were reviewed every visit. Patient expresses understanding and acceptance of instructions. Avi MabryPh.T. 0:00 AM FLAT OPTICAL ELEMENT MAKER [1] Social History Tobacco Use Smoking Status Never Smokeless Tobacco Not on file OPTICAL ELEMENT MAKER documented in this encounter Plan of Treatment Not on file documented as of this encounter Visit Diagnoses Not on filedocumented in this encounter Care Teams Business Development Director Relationship Specialty Start Date End Date None Reported, Pcp PCP - General Family Medicine 02/28/24 documented as of this encounter
--- OUTSIDE RECORDS SUMMARY | 2024-06-23 20:59 | XMS_ITS | Encounter Summary ---
Author Organization [facility] Address [address] [place] [address] Care Team Providers Care Telesales Representative Name Role Phone None Reported, Pcp Primary Care Provider Unavail able Reason for Referral * Outpatient (Routine) - Canceled Specialty Diagnoses / Procedures Referred By Jordan t Referred To Contact Diagnoses Replacement Aortic Valve Tissue Coronary Arterial Bypass Graft Status Post Personal History Procedures Cardiac Rehab Program [place] [address] Phone: tel: fax: [facility] Referral ID Status Reason Start Date Expiration Date V isits Requested Visits Authorized [id number] Canceled 02/20/2024 02/19/2025 45 45 Reason for Visit * Outpatient (Routine) - Canceled Specialty Diagnoses / Procedures Referred By Jordan rubio Referred To Contact Diagnoses Replacement Aortic Valve Tissue Coronary Arterial Bypass Graft Status Post Personal History Procedures Cardiac Rehab Program [place] [address] Phone: tel: fax: [facility] Region Referral ID Status Reason Start Date Expiration Date V isits Requested Visits Authorized [id number] Canceled 02/20/2024 02/19/2025 45 45 Encounter Details Date Type Department Care Team (Latest Contact Info) Description 06/10/2024 1:39 PM CDT - 06/10/2024 11:59 PM CDT Hospital Encounter Department of Cardiac Rehabilitation in [place], [place] [address] [place] [phone] Keon Peace M.D. 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 Gender Identity Not on file Sexual Orientation Not on file documented as of this encounter Plan of Treatment Scheduled Orders Name Type Priority Associated Diagnoses Orde r Schedule Cardiac Rehab Program Card Rehab Routine Replacement Aortic Valve Tissue Coronary Arterial Bypass Graft Status Post Personal History Once for 1 Occurrences starting 06/10/2024 until 06/10/2024 documented as of this encounter Visit Diagnoses Diagnosis Replacement Aortic Valve Tissue Coronary Arterial Bypass Graft Status Post Personal History documented in this encounter Care Teams Telesales Representative Relationship Specialty Start Date End Date None Reported, Pcp PCP - General Family Medicine 02/28/24 documented as of this encounter
--- OUTSIDE RECORDS SUMMARY | 2024-06-23 20:59 | XMS_ITS | Encounter Summary ---
Author Organization [facility] Address [address] [place] [address] Care Team Providers Care Attendance Clerk Name Role Phone None Reported, Pcp Primary Care Provider Unavail able Encounter Details Date Type Department Care Team (Latest Contact Info) Description 06/11/2024 Plan of Care Documentation Department of Cardiac Rehabilitation in [place] [address] [place] [address] Social History Tobacco Use Types Packs/Day Years Used Date Smoking Tobacco: Never Dental Answer Date Recorded Dental: Regular Dentist Unknown 12/04/19 24 Comments Unknown Sex and Gender Information Value Date Recorded Sex Assigned at Not on file 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 - 06/11/2024 9:11 AM CDT Ms. Cody (88 y.o., : 1935, ) was referred to the [facility] Cardiac Rehab Program on 02/10/2024, by Lakisha and has completed 34 sessions out of the 36 prescribed. 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 Patient has attended 11 sessions of cardiac rehab and feels it has been going well. Patient had Aortic valve replace ment with [id number] mm tissue valve, Coronary artery bypass grafting [...] to patient not being in attendance today Patient has attended 34 sessions CR- GI Sx are improving.Denies any other cardiovascular signs or symptoms. Cardiovascular Symptoms None None None None None R Breath Sounds Unable to assess L Breath Sounds Unable to assess Home O2 Use No No No No Edema Location Generalized;Left lower extremity;Right lower extremity Generalized Edema Unable to assess 0 Edema RLE Severity Unable to assess 0 Edema LLE Severity Unable to assess 0 Ejection Fraction Date 01/03/2024 01/03/2024 01/03/2024 01/03/2024 01/03/2024 Ejection Fraction (EF) % 55 % 55 % 55 % 55 % 55 % [place] [employer] Functional Class I - Normal exertion ability I - Normal exertion abilityI - Normal exertion ability Comments Patient has [...] and symptoms as appropriate in upcoming sessions. Patient continues to feel well from a cardiac standpoint and denies any cardiovascular signs or symptoms including chest pain, SOB, or fatigue. Will continue to monitor and educate patient on cardiovascular signs and symptoms at upcoming sessions. Other Education Documentation No documentation found. Exercise Assessment 02/20/2024 06/11/2024 Fall Risk ITP Inclusion: Fall Risk Initial Reassessment Have you fallen within the last year or do you fear you might fall? No Yes Do you use an assisted device to walk? (Walker, cane, wheelchair, crutch) No No Today, do you feel any of the following? Weak, dizzy, shaky, or unsteady? No No Have you taken any medication within the last 6 hours which may make you feel drowsy? Such as sleep, pain, or anxiety medication No No Six Minute Walk 02/24/2024 Total Distance Walked (Meters) 307.54 Estimated METs 2.46 % of Predicted Distance 84.64 Comments Pt tolerated 6 min walk well. 02/20/2024 02/24/2024 03/18/2024 04/16/2024 05/14/2024 06/10/2024 Exercise Assessment ITP Inclusion: Exercise Assessment Initial Initial Reassessment Reassessment Reassessment Reassessment Resting HR 68 65 Resting HR (Telemetry) 68 65 Resting Pulse 68 68 65 Cardiac Rhythm SR SR SR SR SR Ectopy PVCs PVCs PVCs PVCs PVCs Ectopy Frequency Rare Rare Rare Rare Rare Exercise Limitations No No No No No No Assistive Device None None None None None ADLs Independent Independent Independent Independent Independent Peak METs 1.59 3.22 3.3 3.7 4.5 Aerobic Minutes per Day (Home) 0 minutes 0 minutes 0 minutes 15 minutes Aerobic Days per Week (Home) 0 Days 0 Days 0 Days 4 Days Aerobic Minutes per Day (Rehab) 3 minutes 50 minutes 50 minutes 0 minutes 50 minutes Aerobic Days per Week (Rehab) 3 Days 3 Days 0 Days 3 Days Aerobic Minutes per Week 150 0 210 Strength Training Days per Week 0 Days 3 Days Flexibility Training Days per Week 0 [...] treadmill at home. 02/20/2024 03/19/2024 04/16/2024 05/14/2024 06/11/2024 Exercise Prescription Frequency of Sessions Weekly Weekly Weekly Weekly Weekly Sessions per week 3 times per week 3 times per week 3 times per week 3-5 times weekly 3-5 times weekly Intensity Work at a [...] range (RPE): 02-11 METS: 2-3 2.5-3.5 2.5-3.5 2.5-4 Warm Up Minutes: 3-5 3-5 3-5 3-5 3-5 Aerobic exercise minutes: 30 50 50 45-60 45-60 Cool Down minutes: 3-5 3-5 3-5 3-5 3-5 Goal Minutes/Week Gradually progress to 150+ minutes of aerobic exercise per week. Gradually progress to 150+ minutes of aerobic exercise per week Gradually progress to 150 + minutes of aerobic exercise per week. Progress to 150+ minutes of moderate intensity aerobic exercise weekly Gradually progress to 150+ minutes of aerobic exercise per week Rehab Aerobic Exercise Equipment Recumbent stepper (with [...] to increase work level intensity and duration Use RPE to guide when to increase work level intensity and duration Flexibility and Balance Stretch major muscle groups daily Stretch major muscle groups daily Stretchmajor muscle groups daily Stretch major muscle groups daily Stretch major muscle groups daily Sternal precautions Yes Yes Yes Sternal precautions comment s/p AVR/CABG 12/31- continue 20lb weight limit until 03/15 Wt restrictions are off for lifting Wt restrictions are off for lifting Strength Training Free weights Free weights Number of strength sessions per week: 2-3 2-3 Weight: 2 2 Reps: 15 15 Sets: 1 1 Hobbies/Activities Avoid prolonged sitting Avoid prolonged sitting Shopping;Gardening/Yardwork/Housework Avoid prolonged sitting;Gardening/Yardwork/Housework;Shopping Avoid prolonged sitting;Shopping Comments: Pt has stairs at home that she is walking 10x/day. She stays active doing things around the house. Pt also has a treadmill. Patient has been ill over the past couple weeks and has not felt up to completing any home exercise. Patient continues to follow up with providers as needed. Patienthas been feeling better 02/20/2024 03/19/2024 04/16/2024 05/14/2024 06/11/2024 Exercise Plan Goals Compliance to on-site program;Increase exercise duration;Improve exercise tolerance Compliance to on-site program;Increase exercise duration;Improve exercise tolerance Compliance to on-site program;Increase exercise duration;Improve exercise tolerance Compliance to on-site program;Increase exe rcise duration;Improve exercise tolerance;Establish independent exercise routine Compliance to on-site program;Increase exercise duration;Improve exercise tolerance;Establish independent exercise routine Interventions Facility orientation;Review of signs/symptoms to report;Therapist Discussion Therapist Discussion Therapist Discussion Therapist Discussion;Home activity log reviewed Therapist Discussion;Home activity log reviewed Progress Toward [...] on exercise plan in upcoming s essions. Patient continues to work towards her exercise goals.Patient is resuming her normal activities and attending cardiac rehab. Staff will continue to provide education and support on exercise plan in upcoming sessions. Exercise Education Documentation Exercise Program Guidelines [id number], taught by Gosia Rivas R.N. at 03/13/2024 10:24 AM. Learner: Patient Readiness: Eager Method: Explanation Response: Able to Teach Back Move More and Sit Less the NEAT Way [id number], taught by Gosia Rivas R.N. at 04/22/2024 1:59 PM. Learner: Patient Readiness: Eager Method: Explanation Response: Able to Teach Back Benefits and Barriers Of Exercise [id number], taught by Gosia Rivas R.N. at 04/20/2024 1:52 PM. Learner: Patient Readiness: Eager Method: Explanation Response: Able to Teach Back Interval Training [id number], taught by Skye Juarez at 03/23/2024 3:09 PM. Learner: Patient Readiness: Eager Method: Explanation, Handout, Class / Group Response: Able to Teach Back Stretches [id number], taught by Skye Juarez at 03/18/2024 3:09 PM. Learner: Patient Readiness: Eager Method: Explanation, Handout, Class / Group Response: Able to Teach Back Nutrition Assessment 02/20/2024 04/16/2024 05/14/2024 06/10/2024 Nutrition Assessment ITP Inclusion: Nutrition Assessment Initial Reassessment Reassessment Reassessment Height 162 cm 162 cm Weight 64.1 kg 63.1 kg BMI 24.42 24.04 Dietary Recommendations Low Salt;Low Fat/ Low Cholesterol Low Salt;Low Fat/ Low Cholesterol Low Salt;Low Fat/ Low Cholesterol Low Salt;Low Fat/ Low Cholesterol Low Salt Amount 2000 mg 2000 mg 2000 mg 2000 mg Caffeine Intake (oz per week) 0 oz 0 oz 0 oz Appetite Fair Good Good Good Comments Appetite fair to good - is down 10 lbs Weight stable 02/20/2024 03/19/2024 04/16/2024 05/14/2024 06/11/2024 Plan Goals Normalize appetite;Increase vegetable intake;Increase fruit intake;Maintain current weight Normalize appetite;Increase vegetable intake;Increase fruit intake;Maintain current weight Normalize appetite;Increase vegetable intake;Increase fruit intake;Maintain current weight Increase vegetable intake;Maintain current weight Increase vegetable intake;Maintain current weight Nutrition Counseling Staff education only Staff education only Staff education only Interventions Therapist discussion Therapist discussion Therapist discussion Therapist discussion;Discussion on current eating habits Therapist discussion;Discussion on current eating habits Progress [...] and support in upcoming sessions as appropriate. Patient continues to work towards her goals for nutrition. She admits that she has not been able to tolerate much foods due to her GI issue, but it is better now. She reports that she has been eating [...] Nutrition Guidelines for Cholesterol, Triglycerides and Sodium [id number], taught by Skye Juarez at 04/03/2024 3:01 PM. Learner: Patient Readiness: Eager Method: Explanation, Handout, Class / Group Response: Able to Teach Back How to Read a Food Label [id number], taught by Gosia Rivas R.N. at 03/30/2024 2:47 PM. Learner: Patient Readiness: Eager Method: Explanation Response: Able to Teach Back Mediterranean Diet Pyramid: Guidelines for Adults [id number], taught by Skye Juarez at 02/26/2024 3:06 PM. Learner: Patient Readiness: Eager Method: Explanation, Handout, Class / Group Response: Able to Teach Back Mediterranean Diet [id number], taught by Skye Juarez at 02/26/2024 3:06 PM. Learner: Patient Readiness: Eager Method: Explanation, Handout, Class / Group Response: Able to Teach Back Psychosocial Assessment 02/20/2024 03/19/2024 04/16/2024 05/14/2024 06/11/2024 Psychosocial Assessment ITP Inclusion: Psychosocial Initial Reassessment Reassessment Reassessment Reassessment Social Drivers of Health have been reviewed. For high-risk areas identified, a plan of treatment and follow-up information will be documented in appropriate areas within the ITP Yes Yes Yes Yes Yes Current Medication Therapy Yes Yes Yes Yes Yes Psychosocial Medications Zoloft Zoloft Zoloft Zoloft Zoloft Current Issues None Stress Stress Stress Stress Symptom Scale 1 3 3 Patient Stress Factors None identified None identified None identified None identified None identified Family Stress Factors None identified None identified None identified None identified None identified Needs Expressed Denies Denies Denies Denies Denies Comments Spouse in November. She has family near by and very supportive for over the Holidays Pt states her mental health has been good. She has a strons support system in her family. She has 6 kids who take care of her and bring her food. 02/20/2024 03/19/2024 04/16/2024 05/14/2024 06/11/2024 Plan Goals Continue to use effective stress management techniques;Identify a positive support system Continue to use effective stress management techniques;Identify a positive support system Continue to use effective stress management techniques;Identify a positive support system Verbalize appropriate coping skills;Identify a positive support system Verbalize appropriate coping skills;Identify a positive support system Interventions Therapist discussion Therapist discussion Therapist discussion;Discussed/reviewed current coping skills Therapist discussion;Discussed/reviewed current coping skills;Discussed/reviewed support system;Discussed/reviewed effective stress management/relaxation skills Therapist discussion;Discussed/reviewed current coping skills;Discussed/reviewed support [...] and support as appropriate in upcoming sessions. Goals remain ongoing. Patient reports feeling well from a pychosocial standpoint. She reports having good support at home. Will continue to monitor and support patient from a pyschosocial standpoint at upcoming sessions. Psychosocial Education Documentation Relaxation Techniques [id number], taught by Skye Juarez at 04/10/2024 3:02 PM. Learner: Patient Readiness: Eager Method: Explanation, Handout, Class / Group Response: Able to Teach Back Stress Reducers [id number], taught by Skye Juarez at 04/08/2024 3:04 PM. Learner: Patient Readiness: Eager Method: Explanation, Handout, Class / Group Response: Able to Teach Back Stress Management [id number], taught by Gosia Rivas R.N. at 04/08/2024 1:47 PM. Learner: Patient Readiness: Eager Method: Explanation Response: Able to Teach Back Knowing About Depression Finding Your Way [id number], taught by Skye Juarez at 04/06/2024 3:04 PM. Learner: Patient Readiness: Eager Method: Explanation, Handout, Class / Group Response: Able to Teach Back My Road to Better Health Sleep [id number], taught by Gosia Rivas R.N. at 03/04/2024 1:54 PM. Learner: Patient Readiness: Eager Method: Explanation Response: Able to Teach Back Other Core Components Hypertension Assessment 02/20/2024 03/18/2024 04/16/2024 05/14/2024 06/10/2024 Hypertension ITP Inclusion: Hypertension Assessment Initial Reassessment Reassessment Reassessment Reassessment History of Hypertension Yes Yes Yes Yes Current Medication Therapy Yes Yes Yes Yes Yes Hypertension Medications Metoprolol, Lasix Metoprolol, Lasix Metoprolol, lasix Metoprolol, lasix Metoprolol, lasix Blood Pressure 128/68 128/68 130/60 Resting BP (Telemetry) 128/68 130/60 02/20/2024 03/19/2024 04/16/2024 05/14/2024 06/11/2024 Plan Goals Stable BP response;BP at physician prescribed goal;Medication compliance;Decrease sodium intake Stable BP response;BP at physician prescribed goal;Medication compliance;Decrease sodium intake Stable BP response;BP at physician prescribed goal;Medication compliance;Decrease sodium intake Stable BP response;BP at physician prescribed goal;Medication compliance;Decrease sodium intake Stable BPresponse;BP at physician prescribed goal;Medication compliance;Decrease sodium intake Interventions Therapist discussion Therapist discussion Therapist discussion Therapist discussion Therapist [...] and support on hypertension control as appropriate. Patient continues to work towards her hypertension control goals. Staff will continue to provide education and support on hypertension control as appropriate. Hypertension Education Documentation High Blood Pressure Also Known as Hypertension [id number], taught by Gosia Rivas R.N. at 04/15/2024 2:02 PM. Learner: Patient Readiness: Eager Method: Explanation Response: Able to Teach Back Risk Factors For Heart Disease [id number], taught by Skye Juarez at 03/06/2024 2:47 PM. Learner: Patient Readiness: Acceptance Method: Explanation, Handout, Class / Group Response: Able to Teach Back Hyperlipidemia Assessment 02/21/2024 03/19/2024 04/16/2024 05/14/2024 06/11/2024 Hyperlipidemia Assessment History of Hyperlipidemia Yes Yes Yes Yes Yes Current Medication Therapy Yes Yes Yes Yes Yes Hyperlipidemia Medications Atorvastatin 20 mg daily Atorvastatin 20 mg daily Atorvastatin Atorvastatin Atorvastatin Lipids 2023 11:12 AM CHOL 184 TRIG 161 HDL 88 TTLCHOLHDLRT 2.09 02/21/2024 03/19/2024 04/16/2024 05/14/2024 06/11/2024 Plan Goals Understand current lipid profile;Lipids in optimal range Understand current lipid profile;Lipids in optimal range Understand current lipid profile;Lipids in optimal range Understand current lipid profile;Lipids in optimal range Understand current lipid profile;Lipids in optimal range Interventions Therapist discussion;Medication change Therapist discussion;Medication change Therapist discussion;Medication change Therapist discussion Therapist discussion Progress Toward Goals Educated patient [...] No other changes, due to limited ITP. Goals remain ongoing. No new lipid profile up to date. Educated patient on lipid managementincluding regular exercise, following dietary guidelines, and medication compliance. Will continue to monitor and educate patient on lipid management at upcoming sessions. Hyperlipidemia Education Documentation No documentation found. Education Comments No comments found. Diabetes Assessment 02/21/2024 03/19/2024 04/16/2024 05/14/2024 06/11/2024 Diabetes History of Diabetes Diabetes Type II Diabetes Type II Diabetes Type II Diabetes Type II Diabetes Type II Current Medication Therapy Yes Yes Yes Yes Yes Current Medication Therapy Jariance, Metformin, Glipizide Jariance, Metformain, Glipizide Jaridance, Metformin, Glipizide Jardiance, Metformin, Glipizide Jardiance, Metformin, Glipizide Do you monitor your blood glucose at home? No No No No No Diabetic Labs No lab values to display. 02/21/2024 03/19/2024 04/16/2024 05/14/2024 06/11/2024 Plan Goals Recognition of hypo/hyperglycemia symptoms;HbgA1c at [...] Due to limited ITP, unable to assess Pt's DM continues to be well controlled with medications. Will monitor and educate patine on diabetes management at upcoming sessions. Diabetes Education Documentation No documentation found. Tobacco Assessment 02/21/2024 03/19/2024 06/11/2024 Tobacco Assessment Smoking Status Never - no goals/interventions indicated Never - no goals/interventions indicated Never - no goals/interventions indicated Tobacco Use History[1] Tobacco Education Documentation No documentation found. Heart Failure Assessment 02/21/2024 03/19/2024 06/11/2024 Heart Failure Assessment History of Heart Failure No, no goals / interventions indicated No, no goals / interventions indicated No, no goals / interventions indicated Heart Failure Education Documentation No documentation found. Medication Compliance Assessment 02/21/2024 03/19/2024 04/16/2024 05/14/2024 06/11/2024 Medications Have you been compliant with all medications? Yes Yes Yes Yes Yes 02/21/2024 03/19/2024 04/16/2024 05/14/2024 06/11/2024 Plan Goals Medication compliance;Knowledge of medication Medication compliance;Knowledge of medication Medication compliance;Knowledge of medication Medication compliance;Knowledge of medication Medication compliance;Knowledge of medication Interventions Therapist discussion Therapist discussion Therapist discussion Therapist discussion Therapist [...] medication compliance and changes in upcoming sessions. Patient continues to report medication compliance and denies any recent changes or questions on medications. Staff will continue to monitor pat ient for medication compliance and changes in upcoming sessions. Medication Compliance Education Documentation Managing Your Medications [id number], taught by Skye Juarez at 04/17/2024 2:37 PM. Learner: Patient Readiness: Eager Method: Explanation, Handout, Class / Group Response: Able to Teach Back Patient education given and the patient expresses understanding and acceptance of instructions. Ivanna Prince R.N. 06/11/2024 9:11 AM CDT Medications were reviewed every visit. [1] Social History Tobacco Use Smoking Status Never Smokeless Tobacco Not on file documented in this encounter Plan of Treatment Not on file documented as of this encounter Visit Diagnoses Not on filedocumented in this encounter Care Teams Attendance Clerk Relationship Specialty Start Date End Date None Reported, Pcp PCP - General Family Medicine 02/28/24 documented as of this encounter
--- OUTSIDE RECORDS SUMMARY | 2024-06-23 20:59 | XMS_ITS | Clinical Summary ---
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 Overview (01/02/2024): 01/01/2024 s/p Coronary artery bypass grafting x3 (LUGO -> LAD, SVG -> PDA, SVG - > OM1) Shock circulatory 01/02/2024 Severe aortic stenosis 2023 COLLAZO (dyspnea on exertion) 2023 Moderate mitral regurgitation 2023 Coronary atherosclerosis of unspecified type of vessel, ottawa or graft 06/15/2005 Overview (06/15/2005): s/p NARESH [...] Encounters Date Type Department Care Team Description 06/22/2024 Telephone [facility] [address] [facility] [address] [place] [phone] Kobi Disla MD, PhD Medication Management (Warfarin) 06/18/2024 1:30 PM CDT Office Visit [facility] [address] [place] [address] Kobi Disla MD, PhD CV General Cardiology Est 06/15/2024 Telephone [facility] [address] [facility] [address] [place] [phone] Lindsey Corrales PA Results ([employer]) 06/02/2024 10:46 AM ELECTRONIC EQUIPMENT REPAIRMEN - 06/02/2024 11:59 PM ELECTRONIC EQUIPMENT REPAIRMEN Hospital Encounter [facility] [address] [place] [address] Atherosclerosis of coronary artery, unspecified vessel or lesion type, unspecified whether angina present, unspecified whether ottawa or transplanted heart; S/P CABG x 3; Paroxysmal atrial fibrillation (HC); Paroxysmal A-fib (HC); COLLAZO (dyspnea on exertion) 06/02/2024 10:00 AM ELECTRONIC EQUIPMENT REPAIRMEN Office Visit [facility] [address] [place] [phone] Case, RAMON Jung Follow Up (F/U. Needs clearance for colonoscopy, ekg prior. Pt states feeling good, no recent or current cardiac symptoms. Questions about meds and if she can stop taking some) 06/02/2024 Orders Only [facility] [address] [place] [address] Case, RAMON Jung 1 scan: (1-Ord) ZI[facility]PORTS 06/02/2024 Orders Only [facility] [address] [place] [address] Case, RAMON Jung <No scans attached> 06/02/2024 Travel from Last 3 Months Immunizations Immunization Administration Dates Next Due INFLUENZA, IIV3 PF [...] on file Legal Sex Female 6:12 AM ELECTRONIC EQUIPMENT REPAIRMEN Gender Identity Not on file Sexual Orientation Not on file Obstetrics History Last Filed Vital Signs Vital Sign Reading Time Taken Comments Blood Pressure 160/76 06/02/2024 10:03 AM ELECTRONIC EQUIPMENT REPAIRMEN Pulse 75 06/02/2024 10:03 AM ELECTRONIC EQUIPMENT REPAIRMEN Temperature 36.1 C (97 F) 02/10/2024 8:19 AM ELECTRONIC EQUIPMENT REPAIRMEN Respiratory Rate 16 02/10/2024 8:19 AM ELECTRONIC EQUIPMENT REPAIRMEN Oxygen Saturation 95% 06/02/2024 10:03 AM ELECTRONIC EQUIPMENT REPAIRMEN Inhaled Oxygen Concentration - - Weight 62.4 kg (137 lb 9.6 oz) 06/02/2024 10:03 AM ELECTRONIC EQUIPMENT REPAIRMEN Height 162.6 cm (5' 4) 06/02/2024 10:03 AM ELECTRONIC EQUIPMENT REPAIRMEN Body Mass Index 23.62 06/02/2024 10:03 AM ELECTRONIC EQUIPMENT REPAIRMEN Plan of Treatment Health Maintenance Due Date Last Done Comments Depression screening for age 12+ 1949 DEXA/DXA scan for age 65+ 2002 Medicare Wellness for age 65+ 2002 RSV vaccine for adults or (1 - 1-dose 75+ series) 2012 COVID-19 vaccine series (2 - season) 2023 06/18/2020 Influenza Vaccine (#1) 2023 , 01/09/2019, 01/17/2018, Additional history exists BMI (ht and wt on same day) for age 18+ 06/02/2025 06/02/2024, 02/12/2024 Tetanus booster 02/21/2032 02/20/2022, 07/31, 07/19/2006, Additional history exists Pneumococcal series for age 50+ Completed 5, 08/04/2007 Zoster (shingles) series for age 50+ Completed 12/15/2018, 10/14/2018 Tdap Completed 02/20/2022, 08/28/2011 Medical Devices Implanted Type Area Order Entry Technician Device Identifier Shelf Expiration Date Model / Serial / Lot Valve Aortic 19mm Inspirus Resilia Tissue - [id number] Implanted:Qty: 1 on 01/01/2024 by Dahiana Ventura MD at [facility] N/A: Aortic Valve [email or web address] Bianca [id number] 11/12/2026 [id number] / [id number] / Description:No rinse per man ufacturer's instructions. Procedures Procedure Name Priority Date/Time Associated Diagnosis Comments T4,FREE Today 06/02/2024 11:10 AM ELECTRONIC EQUIPMENT REPAIRMEN Atherosclerosis of coronary artery, unspecified vessel or lesion type, unspecified whether angina present, unspecified whether ottawa or transplanted heart S/P CABG x 3 Paroxysmal atrial fibrillation (HC) Paroxysmal A-fib (HC) COLLAZO (dyspnea on exertion) PRO-BNP Today 06/02/2024 11:10 AM ELECTRONIC EQUIPMENT REPAIRMEN COLLAZO (dyspnea on exertion) COMP METABOLIC PANEL Today 06/02/2024 11:10 AM ELECTRONIC EQUIPMENT REPAIRMEN Atherosclerosis of coronary artery, unspecified vessel or lesion type, unspecified whether angina present, unspecified whether ottawa or transplanted heart S/P CABG x 3 Paroxysmal atrial fibrillation (HC) Paroxysmal A-fib (HC) CBC W PLT NO DIFF Today 06/02/2024 11: 10 AM ELECTRONIC EQUIPMENT REPAIRMEN Atherosclerosis of coronary artery, unspecified vessel or lesion type, unspecified whether angina present, unspecified whether ottawa or transplanted heart S/P CABG x 3 Paroxysmal atrial fibrillation (HC) Paroxysmal A-fib (HC) TSH Today 06/02/2024 11:10 AM ELECTRONIC EQUIPMENT REPAIRMEN Atherosclerosis of coronary artery, unspecified vessel or lesion type, unspecified whether angina present, unspecified whether ottawa or transplanted heart S/P CABG x 3 Paroxysmal atrial fibrillation (HC) Paroxysmal A-fib (HC) EKG 12 LEAD Today 06/02/2024 9:51 AM ELECTRONIC EQUIPMENT REPAIRMEN Paroxysmal atrial fibrillation (HC) EXTENDED HOLTER Routine 06/02/2024 Paroxysmal atrial fibrillation (HC) from Last 3 Months Results * (ABNORMAL) TSH (06/02/2024 11:10 AM ELECTRONIC EQUIPMENT REPAIRMEN) TSH 4.77(H) 0.27 - 4.20 uIU/mL 06/02/2024 12:05 PM ELECTRONIC EQUIPMENT REPAIRMEN [facility] Blood BLOOD SPECIMEN / Unknown Venipuncture / Unknown 06/02/2024 11:10 AM ELECTRONIC EQUIPMENT REPAIRMEN 06/02/2024 11:11 AM ELECTRONIC EQUIPMENT REPAIRMEN Narrative [facility] - 06/02/2024 12:05 PM ELECTRONIC EQUIPMENT REPAIRMEN In Adults, TSH values between 5.00 and 10.00 uIU/ml do not necessarily indicate the presence of Hypothyroidism. Correlation with clinical findings such as presence of goiter and/or Thyroperoxidase (TPO) Antibody may be helpful. For more information please refer to ANABELLA 2004; 291: 228-238. us Lindsey NAVARRO CHEMISTRY Final Res ult [facility] [address] [place] [address] * (ABNORMAL) CBC W PLT NO DIFF (06/02/2024 11:10 AM ELECTRONIC EQUIPMENT REPAIRMEN) WHITE BLOOD COUNT 5.7 4.5 - 11.0 thou/cu mm 06/02/2024 11:24 AM ELECTRONIC EQUIPMENT REPAIRMEN [facility] RED BLOOD COUNT 4.23 4.00 - 5.20 mil/cu mm 06/02/2024 11:24 AM [facility] HEMOGLOBIN 11.7(L) 12.0 - 16.0 g/dL 06/02/2024 11:24 AM [facility] HEMATOCRIT 36.6 33.0 - 51.0 % 06/02/2024 11:24 AM [facility] MCV 87 80 - 100 fL 06/02/2024 11:24 AM [facility] MCH 27.7 26.0 - 34.0 pg 06/02/2024 11:24 AM [facility] MCHC 32.0 32.0 - 36.0 g/dL 06/02/2024 11:24 AM [facility] RDW 18.6(H) 11.5 - 15.5 % 06/02/2024 11:24 AM [facility] PLATELET COUNT 272 140 - 440 thou/cu mm 06/02/2024 11:24 AM [facility] MPV 9.6 6.5 - 11.0 fL 06/02/2024 11:24 AM [facility] NRBC 0.0 % 06/02/2024 11:24 AM [facility] ABS NRBC 0.0 thou /cu mm 06/02/2024 11:24 AM [facility] Blood BLOOD SPECIMEN / Unknown Venipuncture / Unknown 06/02/2024 11:10 AM ELECTRONIC EQUIPMENT REPAIRMEN 06/02/2024 11:11 AM ELECTRONIC EQUIPMENT REPAIRMEN Narrative [facility] - 06/02/2024 11:24 AM ELECTRONIC EQUIPMENT REPAIRMEN This procedure was originally ordered at [facility]. us Lindsey NAVARRO HEMATOLOGY Final Res ult [facility] [address] [place] [address] * T4,FREE (06/02/2024 11:10 AM ELECTRONIC EQUIPMENT REPAIRMEN) T4,FREE 1.62 0.93 - 1.70 ng/dL 06/02/2024 7:50 PM ELECTRONIC EQUIPMENT REPAIRMEN [facility] Blood BLOOD SPECIMEN / Unknown Venipuncture / Unknown 06/02/2024 11:10 AM ELECTRONIC EQUIPMENT REPAIRMEN 06/02/2024 11:11 AM ELECTRONIC EQUIPMENT REPAIRMEN us Lindsey NAVARRO CHEMISTRY Final Res ult Performing Organization Address City/[facility]/ZIP Co de Phone Number [facility] [address] [place] [id number], * (ABNORMAL) PRO-BNP (06/02/2024 11:10 AM ELECTRONIC EQUIPMENT REPAIRMEN) PRO-BNP 1,516(H) <450 pg/mL 06/02/2024 12:10 PM ELECTRONIC EQUIPMENT REPAIRMEN [facility] Blood BLOOD SPECIMEN / Unknown Venipuncture / Unknown 06/02/2024 11:10 AM ELECTRONIC EQUIPMENT REPAIRMEN 06/02/2024 11:11 AM ELECTRONIC EQUIPMENT REPAIRMEN Narrative [facility] - 06/02/2024 12:10 PM ELECTRONIC EQUIPMENT REPAIRMEN The following cut-points have been suggested for [...] Lindsey NAVARRO SEND OUTS Final Res ult [facility] [address] [place] [address] * (ABNORMAL) COMP METABOLIC PANEL (06/02/2024 11:10 AM ELECTRONIC EQUIPMENT REPAIRMEN) SODIUM 139 136 - 145 mmol/L 06/02/2024 12:05 PM [facility] POTASSIUM 3.3(L) 3.5 - 5.1 mmol/L 06/02/2024 12:05 PM [facility] CHLORIDE 102 98 - 107 mmol/L 06/02/2024 12:05 PM [facility] CO2,TOTAL 26 22 - 29 mmol/L 06/02/2024 12:05 PM [facility] ANION GAP 11 5 - 18 06/02/2024 12:05 PM [facility] GLUCOSE 152(H) 70 - 99 mg/dL 06/02/2024 12:05 PM [facility] CALCIUM 9.1 8.8 - 10.4 mg/dL 06/02/2024 12:05 PM [facility] Comment: Reference ranges for this test were updated on 02/04/2024 to reflect our healthy population more accurately. Reference range changes are not retroactively applied to results, but previous results using the same methodology can be interpreted in the context of the new reference range. BUN 14 8 - 23 mg/dL 06/02/2024 12:05 PM [facility] CREATININE 0.71 0.50 - 0.90 mg/dL 06/02/2024 12:05 PM [facility] BUN/CREAT RATIO 20 10 - 20 12:05 PM [facility] eGFR 83(L) >90 mL/min/1.7 3m2 06/02/2024 12:05 PM [facility] Comment:As of 2021, eG FR is calculated by the CKD-EPI creatinine equation without race adjustment. eGFR can be influenced by muscle mass, exercise, and diet. The reported eGFR is an estimation only and is only applicable if the renal function is stable. ALBUMIN 3.8(L) 4.0 - 4.9 g/dL 06/02/2024 12:05 PM [facility] PROTEIN,TOTAL 7.4 6.0 - 8.0 g/dL 06/02/2024 12:05 PM [facility] BILIRUBIN,TOTAL 0.2 0.0 - 1.2 mg/dL 06/02/2024 12:05 PM [facility] ALK PHOSPHATASE 66 35 - 104 IU/L 06/02/2024 12:05 PM [facility] ALT (SGPT) 30 10 - 35 IU/L 06/02/2024 12:05 PM [facility] AST (SGOT) 44(H) 10 - 35 IU/L 06/02/2024 12:05 PM [facility] Blood BLOOD SPECIMEN / Unknown Venipuncture / Unknown 06/02/2024 11:10 AM ELECTRONIC EQUIPMENT REPAIRMEN 06/02/2024 11:11 AM ELECTRONIC EQUIPMENT REPAIRMEN Lindsey NAVARRO CHEMISTRY Final Res ult [place] [id number] * EKG 12 LEAD (06/02/2024 9:51 AM ELECTRONIC EQUIPMENT REPAIRMEN) Interpretation Normal sinus rhythm Left ventricular hypertrophy with QRS widening and repolarization abnormality ( R in aVL , Sokolow-So , [place] product , Romhilt-Munroe ) Inferior infarct , age undetermined Abnormal ECG When compared with ECG of 07-Jan-2024 07:49, Inferior infarct is now Present T wave inversion more evident in Inferior leads Ventricular Rate 75 BPM Atrial Rate 75 BPM P-R Interval 176 ms QRS Duration 126 ms QT 424 ms QTc 473 ms P [place] 5 degrees R [place] 28 degrees T [place] 234 degrees 06/02/2024 9:51 AM ELECTRONIC EQUIPMENT REPAIRMEN 06/06/2024 9:46 AM ELECTRONIC EQUIPMENT REPAIRMEN Lindsey NAVARRO EKG ORD Final Res ult * ZIO PATCH XT - weekly to monthly symptoms. (06/02/2024) 06/02/2024 Narrative Sudheer Shabazz MD - 06/15/2024 12:00 AM CDT Agree with preliminary findings. No clinically significant arrhythmias. Please see scan document for full report. Signed By Sudheer Shabazz MD Procedure Note Sudheer Shabazz MD - 06/15/2024 Agree with preliminary findings. No clinically significant arrhythmias. Please see scan document for full report. Signed By Sudheer Shabazz MD Lindsey Thomas Antoni NAVARRO CARDIAC SERVICES ORD Daya l Result from Last 3 Months Insurance MEDICARE PART A HB ONLY [place] BLUE MR PB ONLY MEDICARE PART B HB ONLY [place] BLUE HB ONLY [employer] PPS Advance Directives * Full Code [...] 9:05 AM 06/14/2005 11:46 AM Care Teams Metal Reclamation Kettle Tender Relationship Specialty Start Date End Date Brian Garay MD PCP - General 08/19/[address] [address] 01/11/24
--- OUTSIDE RECORDS SUMMARY | 2024-06-23 20:59 | XMS_ITS | Data Portability ---
Author Organization [facility], [employer] - [facility] Address [address] [facility] [address] [place] [address] Assessment Encounter Date Assessment Date Assessment LastModified by Organization Details LastModified Time 06/15/2024 06/15/2024 ASSESSMENT: Patient is a good candidate for conservative care and the prognosis is for a favorable outcome that achieves the patients' goals. We discussed etiology, activity modifications, home care, and other treatment options. Initially, it is recommended that the patient receive in-office treatment 1 times per week for 8 weeks at which time a re-evaluation will be performed to determine an appropriate change in plan. Initially, treatment will focus on joint manipulation to restore range of motion and reduce pain. We will slowly progress to therapeutic exercises and activities to improve function, strength, and stability may also be used as warranted. If the patient is not responding as expected, more invasive procedures will be discussed along with a referral. All considerations above were discussed with the patient and questions answered to satisfaction. If the patient should have any additional questions, or should the condition evolve or worsen, the patient should not hesitate to contact our office. ecram Not available 06/15/2024 18:38:43 Plan of Treatment Reminders Order Date Submit Date Provider Last Modified By Organization Details Last Modified Time Details Appointments None record ed. Lab None record ed. Referral None record ed. Procedures None record ed. Surgeries None record ed. Imaging None record ed. Medication Orders None record ed. Patient TargetsNo targets recorded. Patient InstructionsNo instructions recorded. Reason for Referral None Reported. 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 Procedures Surgical History Date Name Laterality Status Provider Name and Address Organization Details Recorded Time 24273: Spinal manipulation , 1 to 2 regions completed Abbe FerraroROCÍO [address] [facility] [address], [place], [address], [facility] 06/15/2024 18:40:36 Imaging Results None recorded. Procedure Notes None recorded. Medical Equipment None Reported. Vitals None Recorded Social History None recorded. Functional Status None recorded. Mental Status None recorded. Family History Nothing Reported. Medical History No medical history recorded. Gynecological HistoryNo gynecological history recorded. Obstetrics History GPAL:G 0 P 0 0 0 0 Past Encounters Encounter ID Performer Location Encounter Start Date Encounter Closed Date Diagnosis/Indication Diagnosis SNOMED-CT Code Diagnosis ICD10 Code Diagnosis Note [id number] Abbe FerraroROCÍO [facility] [address] [facility] [address] [place] [address] 06/15/2024 18:23:03 06/15/2024 19:03:36 Cervical segmental dysfunction 729925046 M99.01 Neck pain 80950630 M54.2 Thoracic s egmental dysfunction 666252489 M99.02 Lumbar seg mental dysfunction 066666865 M99.03 Health Concerns Section Related Observation LastModified by Organization Detai ls LastModified Time None Recorded Concern Status LastModified by Organization Details LastModified Time None Recorded Advance Directives Directive None Recorded Payers Encounter Date Sequence Insurance Name Policy Number Policy Sanchez Covered Member ID Sanchez Member ID Guarantor Name 06/15/2024 1 *SELF PAY* Sebastián Cody Notes Date Note Type Note Provider Name and Address Organization Details Recorded Time 06/15/2024 text/html HPI - Cervical SpineReported bypatient.Location: right Quality:aching Severity:moderate Duration:date of onset: (06/15/2024); days; weeks Timing:acute Context:twisting Alleviating Factors:nothing helps Aggravating Factors:twisting/tu rning Associated Symptoms:no numbness/tingling Abbe Ferraro DC [address] [facility] [address], [place], [address], [facility] 06/15/2024 18:41:10 OBGyn Episode No OBEpisode recorded.
--- OUTSIDE RECORDS SUMMARY | 2024-06-23 20:59 | XMS_ITS | Encounter Summary ---
Author Organization [facility] Address [address] [place] [address] Care Team Providers Care Tile Classifier Name Role Phone None Reported, Pcp Primary Care Provider Unavail able Reason for Referral * Outpatient (Routine) - Canceled Specialty Diagnoses / Procedures Referred By Jordan t Referred To Contact Diagnoses Replacement Aortic Valve Tissue Coronary Arterial Bypass Graft Status Post Personal History Procedures Cardiac Rehab Program [place] [address] Phone: tel: fax: [facility] Referral ID Status Reason Start Date Expiration Date V isits Requested Visits Authorized [id number] Canceled 02/20/2024 02/19/2025 45 45 Reason for Visit * Outpatient (Routine) - Canceled Specialty Diagnoses / Procedures Referred By Jordan rubio Referred To Contact Diagnoses Replacement Aortic Valve Tissue Coronary Arterial Bypass Graft Status Post Personal History Procedures Cardiac Rehab Program [place] [address] Phone: tel: fax: [facility] Region Referral ID Status Reason Start Date Expiration Date V isits Requested Visits Authorized [id number] Canceled 02/20/2024 02/19/2025 45 45 Encounter Details Date Type Department Care Team (Latest Contact Info) Description 06/08/2024 1:46 PM CDT - 06/08/2024 11:59 PM CDT Hospital Encounter Department of Cardiac Rehabilitation in [place], [place] [address] [place] [phone] Keon Peace M.D. [address] [place] [phone] Replacement Aortic Valve Tissue; Coronary Arterial Bypass Graft Status Post Personal History Discharge Disposition: Home or Self Care Social History Tobacco Use Types Packs/Day Years Used Date Smoking Tobacco: Never Dental Answer Date Recorded Dental: Regular Dentist Unknown 12/04/19 24 Comments Unknown Sex and Gender Information Value Date Recorded Sex Assigned at Not on file Legal Sex Female 4:49 PM NUTRITION SERVICES AIDE Gender Identity Not on file Sexual Orientation Not on file documented as of this encounter Plan of Treatment Scheduled Orders Name Type Priority Associated Diagnoses Orde r Schedule Cardiac Rehab Program Card Rehab Routine Replacement Aortic Valve Tissue Coronary Arterial Bypass Graft Status Post Personal History Once for 1 Occurrences starting 06/08/2024 until 06/08/2024 documented as of this encounter Visit Diagnoses Diagnosis Replacement Aortic Valve Tissue Coronary Arterial Bypass Graft Status Post Personal History documented in this encounter Care Teams Tile Classifier Relationship Specialty Start Date End Date None Reported, Pcp PCP - General Family Medicine 02/28/24 documented as of this encounter
--- OUTSIDE RECORDS SUMMARY | 2024-06-23 20:59 | XMS_ITS | Encounter Summary ---
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 Ms. Cody (88 y.o., : 1935, ) was referred to the [facility] Cardiac Rehab Program on 02/10/2024, by Lakisha and has completed 36 sessions out of the 36 prescribed. 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 Patient has attended 11 sessions of cardiac rehab and feels it has been going well. Patient had Aortic valve replace ment with [id number] mm tissue valve, Coronary artery bypass grafting [...] improving.Denies any other cardiovascular signs or symptoms. Patient has attended 36 sessions of CR, patient has improved well. Cardiovascular Symptoms None None None None None None R Breath Sounds Unable to assess L Breath Sounds Unable to assess Home O2 Use No No No No Edema Location Generalized;Left lower extremity;Right lower extremity Right lower extremity;Left lower extremity Generalized Edema Unable to assess 0 Edema RLE Severity Unable to assess 0 0 Edema LLE Severity Unable to assess 0 0 Ejection Fraction Date 01/03/2024 01/03/2024 01/03/2024 01/03/2024 01/03/2024 01/03/2024 Ejection Fraction (EF) % 55 % 55 % 55 % 55 % 55 % 55 % [place] [employer] Functional Class I - Normal [...] cardiovascular signs and symptoms at upcoming sessions. Erica barry reports that she overall feels good. She feels that she is stronger, has increased stamina, and also states that her balanced has improved over the 36 sessions. Patient denies any ongoing cardiovascular symptoms. Patient denies any further questions/concerns at time of d/c. Other Education Documentation Risk Factors For Heart Disease [id number], taught by Skye Juarez at 03/06/2024 2:47 PM. Learner: Patient Readiness: Acceptance Method: Explanation, Handout, Class / Group Response: Able to Teach Back Exercise Assessment 02/20/2024 06/11/2024 Fall Risk ITP [...] sleep, pain, or anxiety medication No No 06/15/2024 DASI Calculations Estimated V02 Peak 24.63 Estimated MET Level 7.04 Six Minute Walk 02/24/2024 06/15/2024 Total Distance Walked (Meters) 307.54 345.03 Estimated METs 2.46 2.61 % of Predicted Distance 84.64 94.31 Comments Pt tolerated 6 min walk well. 02/20/2024 02/24/2024 03/18/2024 04/16/2024 05/14/2024 06/10/2024 06/15/2024 Exercise Assessment ITP Inclusion: Exercise Assessment Initial Initial Reassessment Reassessment Reassessment Reassessment Discharge Resting HR 68 65 72 Resting HR (Telemetry) 68 65 Resting Pulse 68 68 65 Cardiac Rhythm SR SR SR SR SR SR Ectopy PVCs PVCs PVCs PVCs PVCs PVCs Ectopy Frequency Rare Rare Rare Rare Rare Rare Exercise Limitations No No No No No No No Assistive Device None None None None None None ADLs Independent Independent Independent Independent Independent Independent Peak METs 1.59 3.22 3.3 3.7 4.5 4.5 Aerobic Minutes per Day (Home) 0 minutes 0 minutes 0 minutes 15 minutes 25 minutes Aerobic Days per Week (Home) 0 Days 0 Days 0 Days 4 Days 4 Days Aerobic Minutes per Day (Rehab) 3 minutes 50 minutes 50 minutes 0 minutes 50 minutes 0 minutes Aerobic Days per Week (Rehab) 3 Days 3 Days 0 Days 3 Days 0 Days Aerobic Minutes per Week 150 0 210 100 Strength Training Days per Week 0 Days 3 Days 0 Days Flexibility Training Days per Week 0 30 second chair stand 1 8 Comments Pt tolerated first exercise sesssion well, no c/o Patient states that she walks and does steps several times a day. No formal exercise routine with home TM Pt has been doing stairs 10xs/day.She has been doing things around the house to stay active. Pt has also been shopping. She has a treadmill at home. 02/20/2024 03/19/2024 04/16/2024 05/14/2024 06/11/2024 06/15/2024 Exercise Prescription Frequency of Sessions Weekly Weekly Weekly Weekly Weekly Weekly Sessions per week 3 times per week 3 times per week 3 times per week 3-5 times weekly 3-5 times weekly 3-5 times weekly Intensity Work at a level that is comfortable but also challenging Work at a level that is comfortable but also challenging Work at a level that is comfortable but also challenging Work at a level that is comfortable but also challenging Work at a level that is comfortable but also challenging Workat a level that is comfortable but also challenging Target heart rate (pulse): 20-40 greater than RHR 20-40 greater than RHR 20-40 greater than RHR 20-40 greater than RHR Rating of Perceived Exertion range (RPE): 02-11 METS: 2-3 2.5-3.5 2.5-3.5 2.5-4 Warm Up Minutes: 3-5 3-5 3-5 3-5 3-5 3-5 Aerobic exercise minutes: 30 50 50 45-60 45-60 45-60 Cool Down minutes: 3-5 3-5 3-5 3-5 3-5 3-5 Goal Minutes/Week Gradually progress to 150+ minutes of aerobic exercise per week. Gradually progress to 150+ minutes of aerobic exercise per week Gradually progress to 150 + minutes of aerobic exercise per week. Progress to 150+ minutes of moderate intensity aerobic exercise weekly Gradually progress to 150+ minutes of aerobic exercise per week Continue to work towards 150-300 minutes of aerobic exercise weekly. Rehab Aerobic Exercise Equipment Recumbent stepper (with or without arms);Treadmill;Arm Ergometer Arm Ergometer;Treadmill;Recumbent stepper (with or without arms) Arm Ergometer;Treadmill;Recumbent stepper (with or without arms) Treadmill;Arm Ergometer;Recumbent stepper (with or without arms) Non-Rehab Aerobic Exercise Equipment Walking Walking Walking Walking;Treadmill;Cycle recumbent Progression Use RPE to guide when to [...] lifting Strength Training Free weights Free weights Free weights Number of strength sessions per week: 2-3 2-3 2 Weight: 2 2 2-4 Reps: 15 15 15 Sets: 1 1 1 Hobbies/Activities Avoid prolonged sitting Avoid prolonged sitting Shopping;Gardening/Yardwork/Housework Avoid prolonged sitting;Gardening/Yardwork/Housework;Shopping Avoid prolonged sitting;Shopping Avoid prolonged sitting;Gardening/Yardwork/Housework Comments: Pt has stairs at home that she is walking 10x/day. She stays active doing things around the house. Pt also has a treadmill. Patient has been ill over the past couple weeks and has not felt up to completing any home exercise. Patient continues to follow up with providers as needed. Patienthas been feeling better 02/20/2024 03/19/2024 04/16/2024 05/14/2024 06/11/2024 06/15/2024 Exercise Plan Goals Compliance to on-site program;Increase exercise duration;Improve exercise tolerance Compliance to on-site program;Increase exercise duration;Improve exercise tolerance Compliance to on-site program;Increase exercise duration;Improve exercise tolerance Compliance to on-site program;Increase exe rcise duration;Improve exercise tolerance;Establish independent exercise routine Compliance to on-site program;Increase exercise duration;Improve exercise tolerance;Establish independent exercise routine Establish independent exercise routine Interventions Facility orientation;Review of [...] support on exercise plan in upcoming sessions. Patient has progressed well within CR and has met goals of improving exercise tolerance, duration, and frequency of exercise. Patient has improved over her sessions and states that she feels stronger and more able to do things. Patient has walking pad and recumbent bike at home which she states she will do at least 4x a week. Patient is active with house chores and shopping. No further questions at time of d/c. Exercise Education Documentation Exercise Program Guidelines [id number], taught by Gosia Rivas R.N. at 03/13/2024 10:24 AM. Learner: Patient Readiness: Eager Method: Explanation Response: Able to Teach Back Move More and Sit Less the NEAT Way [id number], taught by Gosia Rivas R.N. at 04/22/2024 1:59 PM. Learner: Patient Readiness: Eager Method: Explanation Response: Able to Teach Back Benefits and Barriers Of Exercise [id number], taught by Gosia Rivas R.N. at 04/20/2024 1:52 PM. Learner: Patient Readiness: Eager Method: Explanation Response: Able to Teach Back Interval Training [id number], taught by Skye Juarez at 03/23/2024 3:09 PM. Learner: Patient Readiness: Eager Method: Explanation, Handout, Class / Group Response: Able to Teach Back Stretches [id number], taught by Skye Juarez at 03/18/2024 3:09 PM. Learner: Patient Readiness: Eager Method: Explanation, Handout, Class / Group Response: Able to Teach Back Nutrition Assessment 06/15/2024 Picture Your Plate Total Score 70 Total Score Interpretation A PYP score greater than 60 likely indicates a healthful dietary pattern, although there may be some specific eating behaviors that could be improved 02/20/2024 04/16/2024 05/14/2024 06/10/2024 06/15/2024 Nutrition Assessment ITP Inclusion: Nutrition Assessment Initial Reassessment Reassessment Reassessment Discharge Height 162 cm 162 cm 162 cm Weight 64.1 kg 63.1 kg 62.3 kg BMI 24.42 24.04 23.72 Dietary Recommendations Low Salt;Low Fat/ Low Cholesterol Low Salt;Low Fat/ Low Cholesterol Low Salt;Low Fat/ Low Cholesterol Low Salt;Low Fat/ Low Cholesterol Low Salt;Low Fat/ Low Cholesterol Low Salt Amount 2000 mg 2000 mg 2000 mg 2000 mg Caffeine Intake (oz per week) 0 oz 0 oz 0 oz 0 oz Appetite Fair Good Good Good Good Comments Appetite fair to good - is down 10 lbs Weight stable 02/20/2024 03/19/2024 04/16/2024 05/14/2024 06/11/2024 06/15/2024 Plan Goals Normalize appetite;Increase vegetable intake;Increase fruit intake;Maintain current weight Normalize appetite;Increase vegetable intake;Increase fruit intake;Maintain current weight Normalize appetite;Increase vegetable intake;Increase fruit intake;Maintain current weight Increase vegetable intake;Maintain current weight Increase vegetable intake;Maintain current weight Continue to make appropriate heart healthy diet choices Nutrition Counseling Staff education only Staff education [...] support in upcoming sessions as appropriate. Patient has met her nutritional goals and she has been eating well with fruits and vegetables. Patient does most of her cooking and well as her children bringing her meals. Patient's recent GI issues have been improving so she has been maintaining her weight. Patient denies any further questions/concerns at d/c. Nutrition Education Documentation Nutrition Guidelines for Cholesterol, Triglycerides and Sodium [id number], taught by Skye Juarez at 04/03/2024 3:01 PM. Learner: Patient Readiness: Eager Method: Explanation, Handout, Class / Group Response: Able to Teach Back How to Read a Food Label [id number], taught by Gosia Rivas R.N. at 03/30/2024 2:47 PM. Learner: Patient Readiness: Eager Method: Explanation Response: Able to Teach Back Mediterranean Diet Pyramid: Guidelines for Adults [id number], taught by Skye Juarez at 02/26/2024 3:06 PM. Learner: Patient Readiness: Eager Method: Explanation, Handout, Class / Group Response: Able to Teach Back Mediterranean Diet [id number], taught by Skye Juarez at 02/26/2024 3:06 PM. Learner: Patient Readiness: Eager Method: Explanation, Handout, Class / Group Response: Able to Teach Back Psychosocial Assessment 06/15/2024 PHQ-9 PHQ-9 Total Score (max 27) 0 PHQ-9 Interpretation None to minimal depression 06/15/2024 [facility] Total Score 12 02/20/2024 03/19/2024 04/16/2024 05/14/2024 06/11/2024 06/15/2024 Psychosocial Assessment ITP Inclusion: Psychosocial Initial Reassessment Reassessment Reassessment Reassessment Discharge Social Drivers of Health have been reviewed. For high-risk areas identified, a plan of treatment and follow-up information will be documented in appropriate areas within the ITP Yes Yes Yes Yes Yes Yes Current Medication Therapy Yes Yes Yes Yes Yes Yes Psychosocial Medications Zoloft Zoloft Zoloft Zoloft Zoloft Current Issues None Stress Stress Stress Stress None Symptom Scale 1 3 3 Patient Stress Factors None identified None identified None identified None identified None identified None identified Family Stress Factors None identified None identified None identified None identified None identified None identified Needs Expressed Denies Denies Denies Denies Denies Denies Comments Spouse in November. She has family near by and very supportive for over the Holidays Pt states her mental health has been good. She has a strons support system in her family. She has 6 kids who take care of her and bring her food. 02/20/2024 03/19/2024 04/16/2024 05/14/2024 06/11/2024 06/15/2024 Plan Goals Continue to use effective stress management techniques;Identify a positive support system Continue to use effective stress management techniques;Identify a positive support system Continue to use effective stress management techniques;Identify a positive support system Verbalize appropriate coping skills;Identify a positive support system Verbalize appropriate coping skills;Identify a positive support system Continue to use effective stress management techniques Interventions Therapist discussion Therapist discussion Therapist discussion;Discussed/reviewed [...] from a pyschosocial standpoint at upcoming sessions. Patient has reached psychosocial goals and she is doing well and has no current stress and knows how to cope when stress does arise. Patient enjoys spending time with her big family and is excited to start doing yard work with the nice weather. Patient denies any further questions/concerns at time of d/c. Psychosocial Education Documentation Relaxation Techniques [id number], taught by Skye Juarez at 04/10/2024 3:02 PM. Learner: Patient Readiness: Eager Method: Explanation, Handout, Class / Group Response: Able to Teach Back Stress Reducers [id number], taught by Skye Juarez at 04/08/2024 3:04 PM. Learner: Patient Readiness: Eager Method: Explanation, Handout, Class / Group Response: Able to Teach Back Stress Management [id number], taught by Gosia Rivas RJacklynN. at 04/08/2024 1:47 PM. Learner: Patient Readiness: Eager Method: Explanation Response: Able to Teach Back Knowing About Depression Finding Your Way [id number], taught by Skye Juarez at 04/06/2024 3:04 PM. Learner: Patient Readiness: Eager Method: Explanation, Handout, Class / Group Response: Able to Teach Back My Road to Better Health Sleep [id number], taught by Gosia Rivas R.N. at 03/04/2024 1:54 PM. Learner: Patient Readiness: Eager Method: Explanation Response: Able to Teach Back Other Core Components Hypertension Assessment 02/20/2024 03/18/2024 04/16/2024 05/14/2024 06/10/2024 06/15/2024 Hypertension ITP Inclusion: Hypertension Assessment Initial Reassessment Reassessment Reassessment Reassessment Discharge History of Hypertension Yes Yes Yes Yes Yes Current Medication Therapy Yes Yes Yes Yes Yes Yes Hypertension Medications Metoprolol, Lasix Metoprolol, Lasix Metoprolol, lasix Metoprolol, lasix Metoprolol, lasix Blood Pressure 128/68 128/68 130/60 130/68 Resting BP (Telemetry) 128/68 130/60 02/20/2024 03/19/2024 04/16/2024 05/14/2024 06/11/2024 06/15/2024 Plan Goals Stable BP response;BP at physician prescribed goal;Medication compliance;Decrease sodium intake Stable BP response;BP at physician prescribed goal;Medication compliance;Decrease sodium intake Stable BP response;BP at physician prescribed goal;Medication compliance;Decrease sodium intake Stable BP response;BP at physician prescribed goal;Medication compliance;Decrease sodium intake Stable BPresponse;BP at physician prescribed goal;Medication compliance;Decrease sodium intake BP at physician prescribed goal;Monitor BP at home Interventions Therapist discussion Therapist discussion Therapist discussion [...] and support on hypertension control as appropriate. Patient's bp has been stable, with some high readings here and there. Patient reports thatshe has limited her salt intake, has increased her exercise, and will start taking her B/p at home.Patient is taking all medications as prescribed and denies any further questions or concerns. Hypertension Education Documentation High Blood Pressure Also Known as Hypertension [id number], taught by Gosia Rivas R.N. at 04/15/2024 2:02 PM. Learner: Patient Readiness: Eager Method: Explanation Response: Able to Teach Back Risk Factors For Heart Disease [id number], taught by Skye Juarez at 03/06/2024 2:47 PM. Learner: Patient Readiness: Acceptance Method: Explanation, Handout, Class / Group Response: Able to Teach Back Hyperlipidemia Assessment 02/21/2024 03/19/2024 04/16/2024 05/14/2024 06/11/2024 06/15/2024 Hyperlipidemia Assessment History of Hyperlipidemia Yes Yes Yes Yes Yes Yes Current Medication Therapy Yes Yes Yes Yes Yes Yes Hyperlipidemia Medications Atorvastatin 20 mg daily Atorvastatin 20 mg daily Atorvastatin Atorvastatin Atorvastatin Lipids 2023 11:12 AM CHOL 184 TRIG 161 HDL 88 TTLCHOLHDLRT 2.09 02/21/2024 03/19/2024 04/16/2024 05/14/2024 06/11/2024 06/15/2024 Plan Goals Understand current lipid profile;Lipids in optimal range Understand current lipid profile;Lipids in optimal range Understand current lipid profile;Lipids in optimal range Understand current lipid profile;Lipids in optimal range Understand current lipid profile;Lipids in optimal range Continue lifestyle choices for optimal lipid management Interventions Therapist discussion;Medication change Therapist discussion;Medication change Therapist discussion;Medication change Therapist discussion Therapist discussion Therapist discussion Progress [...] lipid management at upcoming sessions. Goals remain ongoing as there has been no new lipid profile up to date. Educated patient on lipid management including regular exercise, following dietary guidelines, and medication compliance. Patient denies any further questions/concerns at time of d/c. Hyperlipidemia Education Documentation No documentation found. Education Comments No comments found. Diabetes Assessment 02/21/2024 03/19/2024 04/16/2024 05/14/2024 06/11/2024 06/15/2024 Diabetes History of Diabetes Diabetes Type II Diabetes Type II Diabetes Type II Diabetes Type II Diabetes Type II Diabetes Type II Current Medication Therapy Yes Yes Yes Yes Yes Yes Current Medication Therapy Jariance, Metformin, Glipizide Jariance, Metformain, Glipizide Jaridance, Metformin, Glipizide Jardiance, Metformin, Glipizide Jardiance, Metformin, Glipizide Do you monitor your blood glucose at home? No No No No No No Diabetic Labs No lab values to display. 02/21/2024 03/19/2024 04/16/2024 05/14/2024 06/11/2024 06/15/2024 Plan Goals Recognition of hypo/hyperglycemia symptoms;HbgA1c at [...] patine on diabetes management at upcoming sessions. Pt's DM continues to be well controlled with medications. Patient does not monitor blood sugars at home. Denies and further questions/concerns. Diabetes Education Documentation No documentation found. Tobacco Assessment 02/21/2024 03/19/2024 06/11/2024 06/15/2024 Tobacco Assessment Smoking Status Never - no goals/interventions indicated Never - no goals/interventions indicated Never - no goals/interventions indicated Never - no goals/interventions indicated Tobacco Use History[1] Tobacco Education Documentation No documentation found. Heart Failure Assessment 02/21/2024 03/19/2024 06/11/2024 06/15/2024 Heart Failure Assessment History of Heart Failure No, no goals / interventions indicated No, no goals / interventions indicated No, no goals / interventions indicated No, no goals / interventions indicated Heart Failure Education Documentation No documentation found. Medication Compliance Assessment 02/21/2024 03/19/2024 04/16/2024 05/14/2024 06/11/2024 06/15/2024 Medications Have you been compliant with all medications? Yes Yes Yes Yes Yes Yes 02/21/2024 03/19/2024 04/16/2024 05/14/2024 06/11/2024 06/15/2024 Plan Goals Medication compliance;Knowledge of medication Medication compliance;Knowledge of medication Medication compliance;Knowledge of medication Medication compliance;Knowledge of medication Medication compliance;Knowledge of medication Medication compliance Interventions Therapist discussion Therapist discussion Therapist discussion [...] sessions. Patient continues to report medication compliance andhas reported a recent change of stopping her amiodarone per provider. Patient denies and further questions/concerns at time of d/c. Medication Compliance Education Documentation Managing Your Medications [id number], taught by Skye Juarez at 04/17/2024 2:37 PM. Learner: Patient Readiness: Eager Method: Explanation, Handout, Class / Group Response: Able to Teach Back Medications were reviewed every visit. Patient education given on 06/15 and the patient expresses understanding and acceptance of instructions. 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
--- OUTSIDE RECORDS SUMMARY | 2024-06-23 20:59 | XMS_ITS | Encounter Summary ---
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 [address] Phone: tel: fax: [facility] Region Referral ID Status Reason Start Date Expiration Date V isits Requested Visits Authorized [id number] Canceled 02/20/2024 02/19/2025 45 45 Encounter Details Date Type Department Care Team (Latest Contact Info) Description 06/05/2024 1:46 PM THREAD WINDER AUTOMATIC - 06/05/2024 11:59 PM THREAD WINDER AUTOMATIC Hospital Encounter Department of Cardiac Rehabilitation in [place], [place] [address] [place] [phone] Keon Peace M.D. [address] [place] [phone] Replacement Aortic Valve Tissue; Coronary Arterial Bypass Graft Status Post Personal History Discharge Disposition: Home or Self Care Social History Tobacco Use Types Packs/Day Years Used Date Smoking Tobacco: Never Dental Answer Date Recorded Dental: Regular Dentist Unknown 12/04/19 Comments Unknown Sex and Gender Information Value Date Recorded Sex Assigned at Not on file Legal Sex Female 4:49 PM THREAD WINDER AUTOMATIC Gender Identity Not on file Sexual Orientation Not on file documented as of this encounter Plan of Treatment Scheduled Orders Name Type Priority Associated Diagnoses Orde r Schedule Cardiac Rehab Program Card Rehab Routine 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
--- OUTSIDE RECORDS SUMMARY | 2024-06-23 20:59 | XMS_ITS | Encounter Summary ---
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 [address] Phone: tel: fax: [facility] Region Referral ID Status Reason Start Date Expiration Date V isits Requested Visits Authorized [id number] Canceled 02/20/2024 02/19/2025 45 45 Encounter Details Date Type Department Care Team (Latest Contact Info) Description 06/12/2024 1:45 PM CDT - 06/12/2024 11:59 PM CDT Hospital Encounter Department of Cardiac Rehabilitation in [place], [place] [address] [place] [phone] Keon Peace M.D. [address] [place] [phone] Replacement Aortic Valve Tissue; Coronary Arterial Bypass Graft Status Post Personal History Discharge Disposition: Home or Self Care Social History Tobacco Use Types Packs/Day Years Used Date Smoking Tobacco: Never Dental Answer Date Recorded Dental: Regular Dentist Unknown 12/04/19 24 Comments Unknown Sex and Gender Information Value Date Recorded Sex Assigned at Not on file Legal Sex Female 4:49 PM JUKE BOX MECHANIC Gender Identity Not on file Sexual Orientation Not on file documented as of this encounter Plan of Treatment Scheduled Orders Name Type Priority Associated Diagnoses Orde r Schedule Cardiac Rehab Program Card Rehab Routine 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
--- OUTSIDE RECORDS SUMMARY | 2024-06-23 20:59 | XMS_ITS | Encounter Summary ---
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 [address] Phone: tel: fax: [facility] Region Referral ID Status Reason Start Date Expiration Date V isits Requested Visits Authorized [id number] Canceled 02/20/2024 02/19/2025 45 45 Encounter Details Date Type Department Care Team (Latest Contact Info) Description 05/27/2024 1:52 PM CONCRETE PRODUCTS MACHINE OPERATOR - 05/27/2024 11:59 PM CONCRETE PRODUCTS MACHINE OPERATOR Hospital Encounter Department of Cardiac Rehabilitation in [place], [place] [address] [place] [phone] Keon Peace M.D. [address] [place] [phone] Replacement Aortic Valve Tissue; Coronary Arterial Bypass Graft Status Post Personal History Discharge Disposition: Home or Self Care Social History Tobacco Use Types Packs/Day Years Used Date Smoking Tobacco: Never Dental Answer Date Recorded Dental: Regular Dentist Unknown 12/04/19 Comments Unknown Sex and Gender Information Value Date Recorded Sex Assigned at Not on file Legal Sex Female 4:49 PM CONCRETE PRODUCTS MACHINE OPERATOR Gender Identity Not on file [...] History documented in this encounter Care Teams Parts Runner Relationship Specialty Start Date End Date None Reported, Pcp PCP - General Family Medicine 02/28/24 documented as of this encounter
--- OUTSIDE RECORDS SUMMARY | 2024-06-23 20:59 | XMS_ITS | Encounter Summary ---
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 [address] Phone: tel: fax: [facility] Region Referral ID Status Reason Start Date Expiration Date V isits Requested Visits Authorized [id number] Canceled 02/20/2024 02/19/2025 45 45 Encounter Details Date Type Department Care Team (Latest Contact Info) Description 06/15/2024 1:45 PM CDT - 06/15/2024 11:59 PM CDT Hospital Encounter Department of Cardiac Rehabilitation in [place], [place] [address] [place] [phone] [address]on Peace M[address]D. [address] [place] [phone] Coronary Arterial Bypass Graft Status Post Personal History (Primary Dx); Replacement Aortic Valve Tissue Discharge Disposition: Home or Self Care Social [...] on file Legal Sex Female 4:49 PM CLINIC MANAGER Gender Identity Not on file Sexual Orientation Not on file documented as of this encounter Procedure Notes * Skye Juarez - 06/15/2024 2:00 PM CDTAssociated Order(s): Six Minute Walk Post-Procedure Diagnose(s): Coronary Arterial Bypass Graft Status Post Personal History Six Minute Walk Performed by: Skye Juarez [...] METs: 2.61 % of Predicted Distance: 94.31 documented in this encounter Plan of Treatment Scheduled Orders Name Type Priority Associated Diagnoses Orde r Schedule Cardiac Rehab Program Card Rehab Routine 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 CV STRESS PROCEDURES Daya l Result documented in this encounter Visit Diagnoses Diagnosis Coronary Arterial Bypass Graft Status Post Personal History- Primary Replacement Aortic Valve Tissue documented in this encounter Additional Health Concerns Assessment Noted Time PHQ-9 Depression Total Score: 0 06/16/19 25 2:05 PM CDT documented as of this encounter Care Teams Director Airport Operations Relationship Specialty Start Date End Date None Reported, Pcp PCP - General Family Medicine 02/28/24 documented as of this encounter
--- OUTSIDE RECORDS SUMMARY | 2024-06-23 20:59 | XMS_ITS | Continuity of Care Document ---
Author Organization [facility] [employer] [facility] Address [address] [place] [address] Assessment Encounter Date Assessment Date Assessment LastModified [...] Address Organization Details Recorded Time Neck pain 62081661 Active 2024 Abbe Ferraro, ROCÍO [address], [place], [address] , Formerly [facility] 18:38:44 Cervical segmental dysfunction 857093757 Active 2024 Abbe Elkins Carrolltiffany ROCÍO 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, [place], [address], Formerly [facility] 18:38:44 Problem Notes None recorded. Procedures Surgical History Date Name Laterality Status Provider Name and Address Organization Details Recorded Time 67156: Spinal manipulation , 1 to 2 regions completed Abbe Elkins CarrolltiffanyROCÍO [address], [place], [address], Formerly [facility] 06/15/2024 18:40:36 Imaging Results None recorded. Procedure [...] SNOMED-CT Code Diagnosis ICD10 Code Diagnosis Note [id number] Abbe FerraroROCÍO [facility] [address] [place] [place] [address] 06/15/2024 18:23:03 06/15/2024 19:03:36 Cervical segmental dysfunction 579568520 M99.01 Neck pain 50143567 M54.2 Thoracic s egmental dysfunction 876586724 M99.02 Lumbar seg mental dysfunction 386211278 M99.03 Health Concerns Section Related Observation LastModified by Organization Detai ls LastModified Time None Recorded Concern Status LastModified by Organization Details LastModified Time None Recorded Payers Encounter Date Sequence Insurance [...] Associated Symptoms:no numbness/tingling Abbe Ferraro DC [address], [place], [address], [facility] - [facility] 06/15/2024 18:41:10 OBGyn Episode No OBEpisode recorded.
[2024-06-23 21:02] VITALS: BP 195/81; PULSE 74; RESP 18; TEMP 36.1; O2SAT 97; BMI 23.0
--- NOTE | 2024-06-23 21:11 | ED.EPISTAXIS ---
History of Present Illness General Time Seen by Provider: 21:11 Date Seen: 06/23/24 Chief Complaint: Epistaxis/Nosebleed Stated Complaint: Nose bleed Time Seen by Provider: 06/23/24 21:11 Source: patient, family, RN notes reviewed and old records reviewed Mode of arrival: ambulatory Limitations: no limitations History of Present Illness HPI Narrative: This 88-year-old female is coming in with elevated blood pressure tonight in the setting of 3 left-sided nosebleeds earlier today. She has had 3 episodes of nontraumatic left naris nose bleed today. She is chronically anticoagulated with Coumadin for atrial fibrillation. Her INR on June 18 was 2.3, hemoglobin was 11.2.. She is scheduled to follow-up with her primary Dr. Garay tomorrow for a preoperative evaluation for colonoscopy. She has been plagued by diarrhea since April. There is no trauma, she has not been sick with any upper respiratory issues. Did review her blood pressures looking back in May, they have been elevated in the 170s to 190s at times. She has been doing cardiac rehab, her blood pressures have been reportedly mildly elevated there but then she states they do come down with exercise. If she is taking diltiazem 180 mg daily, Lasix 20 mg daily, irbesartan 75 mg daily and metoprolol succinate 25 mg with 1/2 tablet daily. Patient did not take her Coumadin tonight. She does not believe she has a mechanical valve. Location: Yes left naris Related Data Home Medications ?Medication ?Instructions ?Recorded ?Confirmed blood glucose control, normal 11/29/21 06/18/24 (Accu-Chek SmartView Control Solution) lancets (Accu-Chek Fastclix Lancet 11/29/21 06/18/24 Drum) [id number] 200 mcg-vit K 15 1 tab PO QDAY 11/29/21 06/18/24 mcg-lycope 150 rmo-rijomv-njsr tablet (Ocuvite Eye Plus Multi) omega 7-xzy-uby-fish oil 1,200 mg 1 cap PO DAILY 11/29/21 06/18/24 (144 mg-216 mg) capsule (Fish Oil) nitroglycerin 0.4 mg sublingual 0.4 mg sublingual ONCE PRN 01/29/24 06/18/24 tablet (Nitrostat) irbesartan 75 mg tablet mg PO DAILY 05/06/24 06/18/24 atorvastatin 20 mg tablet 80 mg PO QDAY 06/18/24 diltiazem HCl 180 mg capsule,24 180 mg PO QDAY 06/18/24 06/18/24 hr,extended release potassium chloride 10 mEq 10 meq PO BID 06/18/24 capsule,extended release Previous Rx's ?Medication ?Instructions ?Recorded blood sugar diagnostic (Accu-Chek #100 strips 11/09/22 SmartView Test Strips) levothyroxine 75 mcg tablet 75 mcg PO QDAY #90 tabs 10/01/23 (Synthroid) furosemide 20 mg tablet 20 mg PO QAM #90 tabs 01/17/24 glipizide 10 mg tablet 10 mg PO BID #180 tabs 01/17/24 metoprolol succinate 25 mg 12.5 mg (1/2 x 25 mg) PO QDAY #45 01/17/24 tablet,extended release 24 hr tabs pioglitazone 15 mg tablet 15 mg PO QDAY #90 tabs 01/17/24 sertraline 100 mg tablet 100 mg PO QDAY #90 tabs 01/17/24 metformin 1,000 mg tablet 1,000 mg PO BID #180 tabs 03/09/24 alendronate 70 mg tablet 70 mg PO QWEEK #12 tabs 04/21/24 warfarin 2 mg tablet See Rx Instructions PO QDAY #100 06/09/24 tabs cephalexin 250 mg tablet 250 mg PO TID #15 tabs 06/23/24 peg 3350-electrolytes 236 240 ml PO ONCE #4,000 mL 06/23/24 gram-22.74 gram-6.74 gram-5.86 gram solution (Golytely) Allergies Allergy/AdvReac Type Severity Reaction Status Date / Time penicillin V Allergy Mild Hands and Verified 06/18/24 13:34 feet itchy,red PFSH PFSH Medical History ASCVD (arteriosclerotic cardiovascular disease) ?I25.10 - Atherosclerotic heart disease of [place] coronary artery without angina pectoris (ICD-10) Diabetes 1.5, managed as type 2 ?E13.9 - Other specified diabetes mellitus without complications (ICD-10) Hypertension ?I10 - Essential (primary) hypertension (ICD-10) Hyperlipidemia (08/16/09) ?E78.5 - Hyperlipidemia, unspecified (ICD-10) Hypothyroidism ?E03.9 - Hypothyroidism, unspecified (ICD-10) History of atrial fibrillation ?Z86.79 - Personal history of other diseases of the circulatory system (ICD-10) Asthma (08/16/09) ?J45.909 - Unspecified asthma, uncomplicated (ICD-10) Anxiety ?F41.9 - Anxiety disorder, unspecified (ICD-10) Osteoporosis ?M81.0 - Age-related osteoporosis without current pathological fracture (ICD-10) Thoracic compression fracture ?S22.000A - Wedge compression fracture of unspecified thoracic vertebra, initial encounter for closed fracture (ICD-10) Stress incontinence ?N39.3 - Stress incontinence (female) (male) (ICD-10) Diverticulosis (05/27/12) ?K57.90 - Diverticulosis of intestine, part unspecified, without perforation or abscess without bleeding (ICD-10) Adenomatous polyp of colon ?D12.6 - Benign neoplasm of colon, unspecified (ICD-10) Aortic stenosis ?I35.0 - Nonrheumatic aortic (valve) stenosis (ICD-10) Trochanteric bursitis ?M70.60 - Trochanteric bursitis, unspecified hip (ICD-10) Mass of right kidney ?N28.89 - Other specified disorders of kidney and ureter (ICD-10) Osteopenia (12/22/12) ?M85.80 - Other specified disorders of bone density and structure, unspecified site (ICD-10) Back pain ?M54.9 - Dorsalgia, unspecified (ICD-10) Fracture, humerus ?S42.309A - Unspecified fracture of shaft of humerus, unspecified arm, initial encounter for closed fracture (ICD-10) Surgical History Status post aortic valve replacement ?Z95.2 - Presence of prosthetic heart valve (ICD-10) Status post three vessel coronary artery bypass ?Z95.1 - Presence of aortocoronary bypass graft (ICD-10) Status post nasal surgery (08/16/09) ?Z98.890 - Other specified postprocedural states (ICD-10) Status post cataract extraction ?Z98.49 - Cataract extraction status, unspecified eye (ICD-10) Status post appendectomy (08/16/09) ?Z90.49 - Acquired absence of other specified parts of digestive tract (ICD-10) History of coronary artery stent placement (08/16/09) ?Z95.5 - Presence of coronary angioplasty implant and graft (ICD-10) History of colonoscopy ?Z98.890 - Other specified postprocedural states (ICD-10) Family History Family/Other Colon cancer Social History What is your current living situation?: I presently have a place to live In the past 12 months, utilities in danger of being shut off: no In past 12 months, lack of transportation kept you from medical appts, meetings, work, or getting things needed for daily living: no In the past 12 mos, have been you worried that your food would run out before you had money to buy more?: never true In the past 12 mos, the food you bought just didn't last and you didn't have money to buy more?: never true Smoking Status: Never smoker Do you use any of these nicotine containing products: None Second hand tobacco smoke exposure: No How often do you have a drink containing alcohol: never How often do you have six or more drinks on one occasion: Never AUDIT-C Alcohol total score: 0 Non-prescribed substance use: denies use How often does anyone, including family, friends and others, physically hurt you: never How often does anyone, including family, friends and others, insult or talk down to you: never How often does anyone, including family, friends and others, threaten you with harm: never How often does anyone, including family, friends and others, scream or curse at you: never service: No Exam Const: Vital Signs, click to edit/add: Vital Signs - 24 hr 06/23/24 21:02 06/23/24 22:43 Temperature 97.0 F L Pulse Rate [Left P ulse Oximeter] 74 78 Pulse Rate [Pulse Oximeter] 78 Respiratory Rate 18 18 Blood Pressure [Ri ght Upper Arm] 195/81 H 207/91 H Pulse Oximetry 97 Oxygen Delivery Me thod Room Air Room Air This 88-year-old female is alert, interactive, no apparent distress. She is ambulatory into the ED of her own accord. Face atraumatic, sclera clear. Lungs are clear, good air entry, no wheezing crackles. CV regular rate and rhythm, no significant murmur but here almost clicking sound, normal S1-S2. Inspection of the nares reveals a little small adherent clot on the inferior anterior septum on the left side. There is no active bleeding and the clot is small, adherent and was not disrupted. Right side is normal, and no blood noted, no vascularity noted. Documenting provider has reviewed patient's vital signs: yes Course Course ED Course: I do think patient's blood pressure may be playing a role here, has been frequently elevated looking back in our records. Did review with her and her family member that there plenty of studies showing that the ER can be a stressful situation and blood pressure certainly can be higher than normal here. With that said, she does have a follow-up tomorrow. We are going to give her 2.5 mg of amlodipine for initial blood pressure lowering overnight, her primary can work on maximization of her other medicines and follow her blood pressure. We discussed options. With cautery and her being currently anticoagulated, I think this actually increases risk for rebleeding. The bleeds have been self-limited. I think we can put a little small layer of surgery foam over the area, simply put a cotton ball in overnight for little direct pressure. She is going to be going off her anticoagulation likely in readiness for colonoscopy. This will help prevent rebleeding. When she removed the cotton ball, have instructed her to use a pea-sized amount of Vaseline in each anterior nostril nightly. She should not pull the surgical foam off, she should allow this to come off on its own over the next days to couple weeks. If she has ongoing issues, may need to be actually packed. The packing is indeed uncomfortable and the fact that she is not having significant bleeding I think we can try to manage this more conservatively and more comfortably at this time. Reevaluation(s) Time of Reevaluation #1: 21:46 Reevaluation #1: Unfortunately with attempt to place the surge a foam and small cotton ball anteriorly, patient did rebleed. She was bleeding posteriorly behind the nose clamp, was draining down the left posterior pharynx. Did get a rhino rocket, trimmed it down a little in length and placed that in the left side easily. Put the clamp back on her nose. She seems to be having diminish bleeding at this time. Will continue to follow her here for while to ensure that the rhino rocket is appropriately controlling. Time of Reevaluation #2: 22:12 Reevaluation #2: Patient started bleeding around the rhino rocket. Did find a 5.5 cm rapid rhino, inflated up to 3 mL of air. She still is doing some dripping around this, have nasal clamp back on. I will place an IV, do tranexamic acid 1000mg. Time of Reevaluation #3: 22:50 Reevaluation #3: Blood pressure 207/91, about an hour after 2.5 mg of amlodipine, will give subsequent 2.5 mg for total dose of 5 mg amlodipine. Additional Reevaluation(s): 11:22 p.m.: Patient is re-evaluated. She has gotten the 2nd half of the amlodipine for a total of 5 mg. Never at any point has she had any neurologic changes or chest pain. She has just a small little spot of blood that has dripped on to the nasal tray. We did discuss that she should expect some seepage onto this, reviewed that if she has to change the 4 by for within 15 minutes due to saturation, to return. Vital Signs Vital signs: Initial Vital Signs Temperature 97.0 F L 06/23/24 21:02 Temperature Source Temporal Artery Scan 06/23/24 21:02 Pulse Rate 74 06/23/24 21:02 Pulse Rhythm Regular 06/23/24 21:02 Respiratory Rate 18 06/23/24 21:02 Blood Pressure 195/81 H 06/23/24 21:02 Blood Pressure Mean 119 H 06/23/24 21:02 Blood Pressure Position Sitting 06/23/24 21:02 Pulse Oximetry 97 06/23/24 21:02 Oxygen Delivery Method Room Air 06/23/24 21:02 Vital Signs Temperature 97.0 F L 06/23/24 21:02 Pulse Rate 74 06/23/24 21:02 Respiratory Rate 18 06/23/24 21:02 Blood Pressure 195/81 H 06/23/24 21:02 Pulse Oximetry 97 06/23/24 21:02 Oxygen Delivery Method Room Air 06/23/24 21:02 Temperature 97.0 F L 06/23/24 21:02 Pulse Rate 78 06/23/24 22:43 Respiratory Rate 18 06/23/24 22:43 Blood Pressure 207/91 H 06/23/24 22:43 Pulse Oximetry 97 06/23/24 21:02 Oxygen Delivery Method Room Air 06/23/24 22:43 Medications Administered Medications: Discontinued Medications Generic Name Dose Route Start Last Admin Trade Name Freq PRN Reason Stop Dose Admin Amlodipine Besylate 2.5 mg 06/23/24 21:20 06/23/24 21:34 Amlodipine 5 Mg Tablet PO 06/23/24 21:21 2.5 mg ONCE ONE Administration Amlodipine Besylate 2.5 mg 06/23/24 22:49 06/23/24 23:02 Amlodipine 5 Mg Tablet PO 06/23/24 22:50 2.5 mg ONCE ONE Administration Sodium Chloride 250 mls @ 250 mls/hr 06/23/24 22:13 06/23/24 23:00 0.9 % Sodium Chloride 250 Ml IV 06/23/24 23:12 Not Given .Q1H ONE Tranexamic Acid 1,000 mg 06/23/24 22:13 06/23/24 22:42 Tranexamic Acid 100 Mg/Ml Inj IV 06/23/24 22:14 1,000 mg ONCE ONE Administration MDM - Epistaxis Lab Data Attestation: I reviewed the patient's lab results. Labs: Lab Results 06/23/24 Range/Units 22:30 WBC 8.39 (4.50-11.00) K/uL RBC 3.63 L (4.00-5.20) m/uL Hgb 10.1 L (12.0-16.0) gm/dL Hct 31.3 L (33.0-51.0) % MCV 86 (80-100) fL MCH 28 (26-34) pg MCHC 32 (32-36) gm/dL RDW Coeff of Sher 17.8 H (11.5-15.5) % Plt Count 267 (140-440) K/uL Neut % (Auto) 67.4 (42.0-72.0) % Lymph % (Auto) 17.0 L (20-44) % Mcculloch % (Auto) 11.4 H (0.0-11.0) % Eos % (Auto) 2.3 (0.0-7.0) % Baso % (Auto) 0.2 (0.0-3.0) % Neut # (Auto) 5.65 (1.7-7.0) K/uL Lymph # (Auto) 1.40 (0.90-2.90) K/uL M[place]ulloch # (Auto) 1.00 H (0.00-0.90) K/UL Eos # (Auto) 0.19 (0.00-0.50) K/uL Baso # (Auto) 0.02 (0.00-0.30) K/uL Abs Immat Gran (auto) 0.14 (0.00-0.30) K/uL Imm/Tot Granulo (auto) 1.7 % INR 2.76 H (0.91-1.10) Discharge Plan Discharge Clinical Impression: Left-sided epistaxis Hypertension Qualifiers: Hypertension type: primary hypertension Qualified Code(s): I10 - Essential (primary) hypertension Patient Disposition: Home, Self-Care Condition: Stable Instructions: Nosebleed (ED), Hypertension (ED) Additional Instructions: If you do have rebleeding, can try the nasal clamp for 30 minutes. If the bleeding is perfuse around the nasal clamp, is not stopping after direct pressure for 30 minutes, will need re-evaluation. Keep your appointment with Dr. Garay tomorrow. See if he can facilitate getting you in with ENT Dr. Foster this week; if you are unable to see Dr. Foster tomorrow, need to initiate the antibiotics. If nasal packing is in place for any length of time, can be an infection risk and we do cover with antibiotics. You will need your blood pressure reviewed tomorrow as well, may need further adjustments of your current antihypertensive medicines. Activity Level: Activity as Tolerated Discharge Diet: Heart Healthy (2 gm sodium, low fat) Prescriptions: New cephalexin 250 mg tablet 250 mg PO TID Qty: 15 0RF No Action nitroglycerin [Nitrostat] 0.4 mg tablet, sublingual 0.4 mg sublingual ONCE PRN Rx Instructions: as a single dose; administer 5-10 minutes before situation known to precipitate angina attack irbesartan 75 mg tablet PO DAILY atorvastatin 20 mg tablet 80 mg PO QDAY potassium chloride 10 mEq capsule, extended release 10 meq PO BID diltiazem HCl 180 mg capsule,extended release 24hr 180 mg PO QDAY metoprolol succinate 25 mg tablet extended release 24 hr 12.5 mg PO QDAY Qty: 45 3RF pioglitazone 15 mg tablet 15 mg PO QDAY Qty: 90 3RF furosemide 20 mg tablet 20 mg PO QAM Qty: 90 3RF glipizide 10 mg tablet 10 mg PO BID Qty: 180 3RF sertraline 100 mg tablet 100 mg PO QDAY Qty: 90 3RF (DME) blood glucose control, normal [Accu-Chek SmartView Contrl Dolores] Solution See Rx Instructions .Route Rx Instructions: As directed (DME) lancets [Accu-Chek Fastclix Lancet Drum] Misc See Rx Instructions .Route Rx Instructions: As directed Ocuvite Eye Plus Multi 200-15-150 mcg tablet 1 tab PO QDAY Rx Instructions: administer with a meal and a large glass of water omega 4-ctv-dpi-fish oil [Fish Oil] 1,200 (144-216) mg capsule 1 cap PO DAILY (DME) Accu-Chek SmartView Test Strip Strip See Rx Instructions .ROUTE .COMPLEX Qty: 100 3RF Dose Instruction: TEST BLOOD SUGAR EVERY DAY (DUE FOR RECHECK IN CLINIC IN . PLAN FASTING LABS) Rx Instructions: TEST BLOOD SUGAR EVERY DAY (DUE FOR RECHECK IN CLINIC IN . PLAN FASTING LABS) levothyroxine [Synthroid] 75 mcg tablet 75 mcg PO QDAY Qty: 90 3RF metformin 1,000 mg tablet 1,000 mg PO BID Qty: 180 0RF alendronate 70 mg tablet 70 mg PO QWEEK Qty: 12 3RF warfarin 2 mg tablet See Rx Instructions PO QDAY Qty: 100 3RF Protocol: Dose Management Condition: Saturday Dose/Route: 3 mg Instruction: 1.5 x 2 mg tablets Condition: Saturday Dose/Route: 2 mg Instruction: 1 x 2 mg tablet Condition: Saturday Dose/Route: 3 mg Instruction: 1.5 x 2 mg tablets Condition: Saturday Dose/Route: 3 mg Instruction: 1.5 x 2 mg tablets Condition: Dose/Route: 2 mg Instruction: 1 x 2 mg tablet Condition: Saturday Dose/Route: 3 mg Instruction: 1.5 x 2 mg tablets Condition: Saturday Dose/Route: 3 mg Instruction: 1.5 x 2 mg tablets Protocol Text: Adjustment Start Date: Saturday06/19/24 INR Value: 2.3 INR Date: 06/18/24 Recheck Date: 07/10/24 Rx Instructions: 2 mg Q Mon and Th, and 3 mg Q T-W-F-S-S orally every day; peg 3350-electrolytes [Golytely] 236-22.74-6.74 -5.86 gram recon soln 240 ml PO ONCE Qty: 4000 0RF Rx Instructions: 4pm day prior to procedure. Drink 8oz glass every 15 minutes until 1/2 of solution is gone. 6 hours prior to your procedure time drink 8oz glass every 15 minutes until remaining solution is gone. Follow Up/Referrals: Brian Garay MD [Primary Care Provider] - Stand Alone Forms: [facility], [place] Info Instructions
--- OUTSIDE RECORDS SUMMARY | 2024-06-23 21:32 | XMS_ITS | Encounter Summary ---
Author Organization [facility] Address [address] [place] [address] Care Team Providers Care Plastics Repairer Name Role Phone None Reported, Pcp Primary Care Provider Unavail able Encounter Details Date Type Department Care Team (Latest Contact Info) Description 05/14/2024 Plan of Care Documentation Department of Cardiac Rehabilitation in [place] [address] [place] [address] Social History Tobacco Use Types Packs/Day Years Used Date Smoking Tobacco: Never Dental Answer Date Recorded Dental: Regular Dentist Unknown 12/04/19 24 Comments Unknown Sex and Gender Information Value Date Recorded Sex Assigned at Not on file Legal Sex 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 - 05/14/2024 10:00 AM CST Images from the original note were not included. Ms. Cody (88 y.o., : 1935, ) was referred to the [facility] on 02/10/2024, by Lakisha and has completed 28 sessions out of the 36 prescribed. PCP: Pcp None Reported New Media Strategist: Lakisha Torrez [facility] Program: Cardiac Rehab Phase II Type: Center-Based Intake Date: 02/20/2024 Date of Enrollment: 02/24/2024 Primary Diagnosis: Valve 01/01/2024 Secondary Diagnosis: CABG 01/01/2024 AACVPR Risk: No data was found 02/20/2024 03/19/2024 04/16/2024 05/14/2024 Symptoms ITP Inclusion: Symptoms Initial Reassessment Reassessment Reassessment Synopsis Patient is a 88 year old female that had-- Aortic valve replacement with [id number] mm tissue valve, Coronary artery bypass grafting x3 (LUGO -> LAD, 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 Patient has attended 11 sessions of cardiac rehab and feels it has been going well. Patient had Aortic valve replace ment with [id number] mm tissue valve, Coronary artery bypass grafting [...] % 55 % 55 % 55 % [place] Heart Association Functional Class I - Normal [...] essions. Exercise Education Documentation Exercise Program Guidelines [id number], taught by Gosia Rivas R.N. at 03/13/2024 10:24 AM. Learner: Patient Readiness: Eager Method: Explanation Response: Able to Teach Back Move More and Sit Less the NEAT Way [id number], taught by Gosia Rivas R.N. at 04/22/2024 1:59 PM. Learner: Patient Readiness: Eager Method: Explanation Response: Able to Teach Back Benefits and Barriers Of Exercise [id number], taught by Gosia Rivas R.NJacklyn at 04/20/2024 1:52 PM. Learner: Patient Readiness: Eager Method: Explanation Response: Able to Teach Back Interval Training [id number], taught by Skye Juarez at 03/23/2024 3:09 PM. Learner: Patient Readiness: Eager Method: Explanation, Handout, Class / Group Response: Able to Teach Back Stretches [id number], taught by Skye Juarez at 03/18/2024 3:09 [...] Nutrition Guidelines for Cholesterol, Triglycerides and Sodium [id number], taught by Skye Juarez at 04/03/2024 3:01 PM. Learner: Patient Readiness: Eager Method: Explanation, Handout, Class / Group Response: Able to Teach Back How to Read a Food Label [id number], taught by Gosia Rivas R.N. at 03/30/2024 2:47 PM. Learner: Patient Readiness: Eager Method: Explanation Response: Able to Teach Back Mediterranean Diet Pyramid: Guidelines for Adults [id number], taught by Skye Juarez at 02/26/2024 3:06 PM. Learner: Patient Readiness: Eager Method: Explanation, Handout, Class / Group Response: Able to Teach Back Mediterranean Diet [id number], taught by Skye Juarez at 02/26/2024 3:06 [...] upcoming sessions. Psychosocial Education Documentation Relaxation Techniques [id number], taught by Skye Juarez at 04/10/2024 3:02 PM. Learner: Patient Readiness: Eager Method: Explanation, Handout, Class / Group Response: Able to Teach Back Stress Reducers [id number], taught by Skye Juarez at 04/08/2024 3:04 PM. Learner: Patient Readiness: Eager Method: Explanation, Handout, Class / Group Response: Able to Teach Back Stress Management [id number], taught by Gosia Rivas R.N. at 04/08/2024 1:47 PM. Learner: Patient Readiness: Eager Method: Explanation Response: Able to Teach Back Knowing About Depression Finding Your Way [id number], taught by Skye Juarez at 04/06/2024 3:04 PM. Learner: Patient Readiness: Eager Method: Explanation, Handout, Class / Group Response: Able to Teach Back My Road to Better Health Sleep [id number], taught by Gosia Rivas R.N. at 03/04/2024 [...] High Blood Pressure Also Known as Hypertension [id number], taught by Gosia Rivas R.N. at 04/15/2024 2:02 PM. Learner: Patient Readiness: Eager Method: Explanation Response: Able to Teach Back Risk Factors For Heart Disease [id number], taught by Skye Juarez at 03/06/2024 2:47 [...] Medication Compliance Education Documentation Managing Your Medications [id number], taught by Skye Juarez at 04/17/2024 2:37 PM. Learner: Patient Readiness: Eager Method: Explanation, Handout, Class / Group Response: Able to Teach Back Medications were reviewed every visit. Patient expresses understanding and acceptance of instructions. Avi MabryPh.T. 0:00 AM SENIOR DATABASE PROGRAMMER [1] Social History Tobacco Use Smoking Status Never Smokeless Tobacco Not on file OR DATABASE PROGRAMMER documented in this encounter Plan of Treatment Not on file documented as of this encounter Visit Diagnoses Not on filedocumented in this encounter Care Teams Plastics Repairer Relationship Specialty Start Date End Date None Reported, Pcp PCP - General Family Medicine 02/28/24 documented as of this encounter
--- OUTSIDE RECORDS SUMMARY | 2024-06-23 21:32 | XMS_ITS | Encounter Summary ---
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 [address] Phone: tel: fax: [facility] Region Referral ID Status Reason Start Date Expiration Date V isits Requested Visits Authorized [id number] Canceled 02/20/2024 02/19/2025 45 45 Encounter Details Date Type Department Care Team (Latest Contact Info) Description 06/08/2024 1:46 PM CDT - 06/08/2024 11:59 PM CDT Hospital Encounter Department of Cardiac Rehabilitation in [place], [place] [address] [place] [phone] Keon Peace M.D. [address] [place] [phone] Replacement Aortic Valve Tissue; Coronary Arterial Bypass Graft Status Post Personal History Discharge Disposition: Home or Self Care Social History Tobacco Use Types Packs/Day Years Used Date Smoking Tobacco: Never Dental Answer Date Recorded Dental: Regular Dentist Unknown 12/04/19 24 Comments Unknown Sex and Gender Information Value Date Recorded Sex Assigned at Not on file Legal Sex Female 4:49 PM WATER PUMP OPERATOR Gender Identity Not on file Sexual [...] History documented in this encounter Care Teams Buffing Machine Operator Semiautomatic Relationship Specialty Start Date End Date None Reported, Pcp PCP - General Family Medicine 02/28/24 documented as of this encounter
--- OUTSIDE RECORDS SUMMARY | 2024-06-23 21:32 | XMS_ITS | Encounter Summary ---
Author Organization [facility] Address [address] [place] [address] Care Team Providers Care Nailing Machine Operator Automatic Name Role Phone None Reported, Pcp Primary Care Provider Unavail able Encounter Details Date Type Department Care Team (Late st Contact Info) Description 05/14/2024 Documentation Department of Cardiac Rehabilitation in [place], [place] [address] [place] [address] Jyoti King C.Ph.T. Social History Tobacco Use Types Packs/Day Years Used Date Smoking Tobacco: Never Dental Answer Date Recorded Dental: Regular Dentist Unknown 12/04/19 24 Comments Unknown Sex and Gender Information Value Date Recorded Sex Assigned at Not on file Legal Sex Female 4:49 PM WHOLESALE ACCOUNT MANAGER Gender Identity Not on file Sexual Orientation Not on file documented as of this encounter Plan of Treatment Not on file documented as of this encounter Visit Diagnoses Not on filedocumented in this encounter Care Teams Nailing Machine Operator Automatic Relationship Specialty Start Date End Date None Reported, Pcp PCP - General Family Medicine 02/28/24 documented as of this encounter
--- OUTSIDE RECORDS SUMMARY | 2024-06-23 21:32 | XMS_ITS | Encounter Summary ---
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 [address] Phone: tel: fax: [facility] Region Referral ID Status Reason Start Date Expiration Date V isits Requested Visits Authorized [id number] Canceled 02/20/2024 02/19/2025 45 45 Encounter Details Date Type Department Care Team (Latest Contact Info) Description 05/29/2024 1:51 PM TRANSPORTATION TECHNICIAN - 05/29/2024 11:59 PM TRANSPORTATION TECHNICIAN Hospital Encounter Department of Cardiac Rehabilitation in [place], [place] [address] [place] [phone] Keon Peace M.D. [address] [place] [phone] Replacement Aortic Valve Tissue; Coronary Arterial Bypass Graft Status Post Personal History Discharge Disposition: Home or Self Care Social History Tobacco Use Types Packs/Day Years Used Date Smoking Tobacco: Never Dental Answer Date Recorded Dental: Regular Dentist Unknown 12/04/19 Comments Unknown Sex and Gender Information Value Date Recorded Sex Assigned at Not on file Legal Sex Female 4:49 PM TRANSPORTATION TECHNICIAN Gender Identity Not on file Sexual [...] History documented in this encounter Care Teams Marketing Services Rep Relationship Specialty Start Date End Date None Reported, Pcp PCP - General Family Medicine 02/28/24 documented as of this encounter
--- OUTSIDE RECORDS SUMMARY | 2024-06-23 21:32 | XMS_ITS | Encounter Summary ---
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 [address] Phone: tel: fax: [facility] Region Referral ID Status Reason Start Date Expiration Date V isits Requested Visits Authorized [id number] Canceled 02/20/2024 02/19/2025 45 45 Encounter Details Date Type Department Care Team (Latest Contact Info) Description 06/01/2024 1:49 PM HOME APPLIANCE WASHING MACHINE MECHANIC - 06/01/2024 11:59 PM HOME APPLIANCE WASHING MACHINE MECHANIC Hospital Encounter Department of Cardiac Rehabilitation in [place], [place] [address] [place] [phone] Keon Peace M.D. [address] [place] [phone] Replacement Aortic Valve Tissue; Coronary Arterial Bypass Graft Status Post Personal History Discharge Disposition: Home or Self Care Social History Tobacco Use Types Packs/Day Years Used Date Smoking Tobacco: Never Dental Answer Date Recorded Dental: Regular Dentist Unknown 12/04/19 Comments Unknown Sex and Gender Information Value Date Recorded Sex Assigned at Not on file Legal Sex Female 4:49 PM HOME APPLIANCE WASHING MACHINE MECHANIC Gender Identity Not on file Sexual [...] History documented in this encounter Care Teams Letterpress Setter Relationship Specialty Start Date End Date None Reported, Pcp PCP - General Family Medicine 02/28/24 documented as of this encounter
--- OUTSIDE RECORDS SUMMARY | 2024-06-23 21:32 | XMS_ITS | Clinical Summary ---
Author Organization [facility] Address [address] [place] [address] Care Team Providers Care Net Mender Name Role Phone None Reported, Pcp Primary Care Provider Unavail able Source Comments Patient records contain information from all sites at [facility]. For routine questions regarding patient records, call [phone] during business hours, M-F 8:00 AM - 5:00 PM Central Time. Record requests for emergency care only can be directed to [phone] at any time.[facility] Allergies Active Allergy Reactions Criticality Noted Date Comments Penicillin Itching 02/20/2024 Penicillins Hives only, no other systemic symptoms,Itching Low 06/12/2005 Medications No known medications Active Problems No known active problems Encounters Date Type Department Care Team Description 06/15/2024 1:45 PM CDT - 06/15/2024 11:59 PM CDT Hospital Encounter Department of Cardiac Rehabilitation in [address] [address] Keon Peace M.D. Coronary Arterial Bypass Graft Status Post Personal History (Primary Dx); Replacement Aortic Valve Tissue Discharge Disposition: Home or Self Care 06/15/2024 Plan of Care Documentation Department of Cardiac Rehabilitation in [address] [address] 06/12/2024 1:45 PM CDT - 06/12/2024 11:59 PM CDT Hospital Encounter Department of Cardiac Rehabilitation in [address] [address] Keon Peace M.D. Replacement Aortic Valve Tissue; Coronary Arterial Bypass Graft Status Post Personal History Discharge Disposition: Home or Self Care 06/11/2024 Plan of Care Documentation Department of Cardiac Rehabilitation in [address] [address] 06/10/2024 1:39 PM CDT - 06/10/2024 11:59 PM CDT Hospital Encounter Department of Cardiac Rehabilitation in [address] [address] Keon Peace M.D. Replacement Aortic Valve Tissue; Coronary Arterial Bypass Graft Status Post Personal History Discharge Disposition: Home or Self Care 06/08/2024 1:46 PM CDT - 06/08/2024 11:59 PM CDT Hospital Encounter Department of Cardiac Rehabilitation in [address] [address] Keon Peace M.D. Replacement Aortic Valve Tissue; Coronary Arterial Bypass Graft Status Post Personal History Discharge Disposition: Home or Self Care 06/05/2024 1:46 PM JUVENILE OFFICER - 06/05/2024 11:59 PM JUVENILE OFFICER Hospital Encounter Department of Cardiac Rehabilitation in [address] [address] Keon Peace M.D. Replacement Aortic Valve Tissue; Coronary Arterial Bypass Graft Status Post Personal History Discharge Disposition: Home or Self Care 06/01/2024 1:49 PM JUVENILE OFFICER - 06/01/2024 11:59 PM JUVENILE OFFICER Hospital Encounter Department of Cardiac Rehabilitation in [address] [address] Keon Peace M.D. Replacement Aortic Valve Tissue; Coronary Arterial Bypass Graft Status Post Personal History Discharge Disposition: Home or Self Care 05/29/2024 1:51 PM JUVENILE OFFICER - 05/29/2024 11:59 PM JUVENILE OFFICER Hospital Encounter Department of Cardiac Rehabilitation in [address] [address] Keon Peace M.D. Replacement Aortic Valve Tissue; Coronary Arterial Bypass Graft Status Post Personal History Discharge Disposition: Home or Self Care 05/27/2024 1:52 PM JUVENILE OFFICER - 05/27/2024 11:59 PM JUVENILE OFFICER Hospital Encounter Department of Cardiac Rehabilitation in [address] [place] [address] Keon Peace M.D. Replacement Aortic Valve Tissue; Coronary Arterial Bypass Graft Status Post Personal History Discharge Disposition: Home or Self Care 05/14/2024 Plan of Care Documentation Department of Cardiac Rehabilitation in [address] [place] [address] 05/14/2024 Documentation Department of Cardiac Rehabilitation in [address] [place] [address] Jyoti King C.Ph.T. 05/14/2024 Clinical Communication Department of Cardiac Rehabilitation in [address] [place] [address] Jyoti King C.Ph.T. 05/01/2024 1:50 PM JUVENILE OFFICER - 05/01/2024 11:59 PM JUVENILE OFFICER Hospital Encounter Department of Cardiac Rehabilitation in [address] [place] [address] Keon Peace M.D. Replacement Aortic Valve Tissue; Coronary Arterial Bypass Graft Status Post Personal History Discharge Disposition: Home or Self Care 04/29/2024 1:45 PM JUVENILE OFFICER - 04/29/2024 11:59 PM JUVENILE OFFICER Hospital Encounter Department of Cardiac Rehabilitation in [address] [address] Keon Peace M.D. Replacement Aortic Valve Tissue; Coronary Arterial Bypass Graft Status Post Personal History Discharge Disposition: Home or Self Care 04/27/2024 1:56 PM JUVENILE OFFICER - 04/27/2024 11:59 PM JUVENILE OFFICER Hospital Encounter Department of Cardiac Rehabilitation in [address] [place] [address] Keon Peace M.D. Replacement Aortic Valve Tissue; Coronary Arterial Bypass Graft Status Post Personal History Discharge Disposition: Home or Self Care 04/24/2024 1:43 PM JUVENILE OFFICER - 04/24/2024 11:59 PM JUVENILE OFFICER Hospital Encounter Department of Cardiac Rehabilitation in [address] [address] Keon Peace M.D. Replacement Aortic Valve Tissue; Coronary Arterial Bypass Graft Status Post Personal History Discharge Disposition: Home or Self Care 04/22/2024 1:59 PM JUVENILE OFFICER - 04/22/2024 11:59 PM JUVENILE OFFICER Hospital Encounter Department of Cardiac Rehabilitation in [address] [address] Keon Peace M.D. Replacement Aortic Valve Tissue; Coronary Arterial Bypass Graft Status Post Personal History Discharge Disposition: Home or Self Care 04/20/2024 1:50 PM JUVENILE OFFICER - 04/20/2024 11:59 PM JUVENILE OFFICER Hospital Encounter Department of Cardiac Rehabilitation in [address] [address] Keon Peace M.D. Replacement Aortic Valve Tissue; Coronary Arterial Bypass Graft Status Post Personal History Discharge Disposition: Home or Self Care 04/17/2024 1:44 PM JUVENILE OFFICER - 04/17/2024 11:59 PM JUVENILE OFFICER Hospital Encounter Department of Cardiac Rehabilitation in [address] [address] Keon Peace M.D. Replacement Aortic Valve Tissue; Coronary Arterial Bypass Graft Status Post Personal History Discharge Disposition: Home or Self Care 04/16/2024 Plan of Care Documentation Department of Cardiac Rehabilitation in [address] [address] 04/15/2024 1:53 PM JUVENILE OFFICER - 04/15/2024 11:59 PM JUVENILE OFFICER Hospital Encounter Department of Cardiac Rehabilitation in [address] [address] Keon Peace M.D. Replacement Aortic Valve Tissue; Coronary Arterial Bypass Graft Status Post Personal History Discharge Disposition: Home or Self Care 04/13/2024 1:41 PM JUVENILE OFFICER - 04/13/2024 11:59 PM JUVENILE OFFICER Hospital Encounter Department of Cardiac Rehabilitation in [address] [address] Keon Peace M.D. Replacement Aortic Valve Tissue; Coronary Arterial Bypass Graft Status Post Personal History Discharge Disposition: Home or Self Care 04/10/2024 1:44 PM JUVENILE OFFICER - 04/10/2024 11:59 PM JUVENILE OFFICER Hospital Encounter Department of Cardiac Rehabilitation in [address] [address] Keon Peace M.D. Replacement Aortic Valve Tissue; Coronary Arterial Bypass Graft Status Post Personal History Discharge Disposition: Home or Self Care 04/08/2024 1:43 PM JUVENILE OFFICER - 04/08/2024 11:59 PM JUVENILE OFFICER Hospital Encounter Department of Cardiac Rehabilitation in [address] [address] Keon Peace M.D. Replacement Aortic Valve Tissue; Coronary Arterial Bypass Graft Status Post Personal History Discharge Disposition: Home or Self Care 04/06/2024 1:46 PM JUVENILE OFFICER - 04/06/2024 11:59 PM JUVENILE OFFICER Hospital Encounter Department of Cardiac Rehabilitation in [address] [address] Keon Peace M.D. Replacement Aortic Valve Tissue; Coronary Arterial Bypass Graft Status Post Personal History Discharge Disposition: Home or Self Care 04/03/2024 1:37 PM JUVENILE OFFICER - 04/03/2024 11:59 PM JUVENILE OFFICER Hospital Encounter Department of Cardiac Rehabilitation in [address] [address] Keon Peace M.D. Replacement Aortic Valve Tissue; Coronary Arterial Bypass Graft Status Post Personal History Discharge Disposition: Home or Self Care 03/30/2024 1:33 PM JUVENILE OFFICER - 03/30/2024 11:59 PM JUVENILE OFFICER Hospital Encounter Department of Cardiac Rehabilitation in [address] [address] Keon Peace M.D. Replacement Aortic Valve Tissue; Coronary Arterial Bypass Graft Status Post Personal History Discharge Disposition: Home or Self Care 03/27/2024 12:06 PM JUVENILE OFFICER - 03/27/2024 11:59 PM JUVENILE OFFICER Hospital Encounter Department of Cardiac Rehabilitation in [place] [address] [place] [address] Keno Peace M.D. Replacement Aortic Valve Tissue; Coronary [...] on file Legal Sex Female 4:49 PM JUVENILE OFFICER Gender Identity Not on file Sexual Orientation Not on file Last Filed Vital Signs Vital Sign Reading Time Taken Comments Blood Pressure 141/70 02/28/2024 3:40 PM JUVENILE OFFICER Pulse 80 02/28/2024 3:40 PM JUVENILE OFFICER Temperature 36.5 C (97.7 F) 02/28/2024 3:40 PM JUVENILE OFFICER Respiratory Rate 17 02/28/2024 3:40 PM JUVENILE OFFICER Oxygen Saturation 95% 02/28/2024 3:40 PM JUVENILE OFFICER Inhaled Oxygen Concentration - - Weight 65.2 kg (143 lb 11.2 oz) 02/28/2024 2:57 PM JUVENILE OFFICER Height 162 cm (5' 3.78) 10/31/2012 4:13 [...] Walk Performed by: Skye Juarez Authorized by: Koen Peace M.D. Were medications taken in the [...] l Result from Last 3 Months Insurance [facility] MEDICARE Care Teams Net Mender Relationship Specialty Start Date End Date None Reported, Pcp PCP - General Family Medicine 02/28/24
--- OUTSIDE RECORDS SUMMARY | 2024-06-23 21:32 | XMS_ITS | Encounter Summary ---
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 [address] Phone: tel: fax: [facility] Region Referral ID Status Reason Start Date Expiration Date V isits Requested Visits Authorized [id number] Canceled 02/20/2024 02/19/2025 45 45 Encounter Details Date Type Department Care Team (Latest Contact Info) Description 05/27/2024 1:52 PM HABITAT CONSERVATION PLANNER - 05/27/2024 11:59 PM HABITAT CONSERVATION PLANNER Hospital Encounter Department of Cardiac Rehabilitation in [place], [place] [address] [place] [phone] Keon Peace M.D. [address] [place] [phone] Replacement Aortic Valve Tissue; Coronary Arterial Bypass Graft Status Post Personal History Discharge Disposition: Home or Self Care Social History Tobacco Use Types Packs/Day Years Used Date Smoking Tobacco: Never Dental Answer Date Recorded Dental: Regular Dentist Unknown 12/04/19 Comments Unknown Sex and Gender Information Value Date Recorded Sex Assigned at Not on file Legal Sex Female 4:49 PM HABITAT CONSERVATION PLANNER Gender Identity Not on file Sexual Orientation [...] History documented in this encounter Care Teams Security Services Specialist Relationship Specialty Start Date End Date None Reported, Pcp PCP - General Family Medicine 02/28/24 documented as of this encounter
--- OUTSIDE RECORDS SUMMARY | 2024-06-23 21:32 | XMS_ITS | Encounter Summary ---
Author Organization [facility] Address [address] [place] [address] Care Team Providers Care Museum Registrar Name Role Phone None Reported, Pcp Primary Care Provider Unavail able Encounter Details Date Type Department Care Team (Latest Contact Info) Description 05/14/2024 Clinical Communication Department of Cardiac Rehabilitation in [place], [place] [address] [place] [address] Jyoti King C.Ph.T. Social History Tobacco Use Types Packs/Day Years Used Date Smoking Tobacco: Never Dental Answer Date Recorded Dental: Regular Dentist Unknown 12/04/19 24 Comments Unknown Sex and Gender Information Value Date Recorded Sex Assigned at Not on file Legal Sex Female 4:49 PM HEALTH RESEARCHER Gender Identity Not on file Sexual Orientation Not on file documented as of this encounter Plan of Treatment Not on file documented as of this encounter Visit Diagnoses Not on filedocumented in this encounter Care Teams Museum Registrar Relationship Specialty Start Date End Date None Reported, Pcp PCP - General Family Medicine 02/28/24 documented as of this encounter
--- OUTSIDE RECORDS SUMMARY | 2024-06-23 21:33 | XMS_ITS | Encounter Summary ---
Author Organization [facility] Address [address] [place] [address] Care Team Providers Care Roller Printer Name Role Phone None Reported, Pcp Primary Care Provider Unavail able Reason for Referral * Outpatient (Routine) - Canceled Specialty Diagnoses / Procedures Referred By Jordan t Referred To Contact Diagnoses Replacement Aortic Valve Tissue Coronary Arterial Bypass Graft Status Post Personal History Procedures Cardiac Rehab [place] [address] Phone: tel: fax: [facility] Referral ID Status Reason Start Date Expiration Date V isits Requested Visits Authorized [id number] Canceled 02/20/2024 02/19/2025 45 45 IT INTERVIEWER Reason for Visit * Outpatient (Routine) - Canceled Specialty Diagnoses / Procedures Referred By Jordan rubio Referred To Contact Diagnoses Replacement Aortic Valve Tissue Coronary Arterial Bypass Graft Status Post Personal History Procedures Cardiac Rehab [place] [address] Phone: tel: fax: [facility] Region Referral ID Status Reason Start Date Expiration Date V isits Requested Visits Authorized [id number] Canceled 02/20/2024 02/19/2025 45 45 Encounter Details Date Type Department Care Team (Latest Contact Info) Description 06/05/2024 1:46 PM CREDIT INTERVIEWER - 06/05/2024 11:59 PM CREDIT INTERVIEWER Hospital Encounter Department of Cardiac Rehabilitation in [place], [place] [address] [place] [phone] Keon Peace M.D. [address] [place] [phone] Replacement Aortic Valve Tissue; Coronary Arterial Bypass Graft Status Post Personal History Discharge Disposition: Home or Self Care Social History Tobacco Use Types Packs/Day Years Used Date Smoking Tobacco: Never Dental Answer Date Recorded Dental: Regular Dentist Unknown 12/04/19 Comments Unknown Sex and Gender Information Value Date Recorded Sex Assigned at Not on file Legal Sex Female 4:49 PM CREDIT INTERVIEWER Gender Identity Not on file Sexual Orientation [...] History documented in this encounter Care Teams Roller Printer Relationship Specialty Start Date End Date None Reported, Pcp PCP - General Family Medicine 02/28/24 documented as of this encounter
--- OUTSIDE RECORDS SUMMARY | 2024-06-23 21:33 | XMS_ITS | Clinical Summary ---
Author Organization [facility] Address [address] [place] [id number] Care Team Providers Care Registered Phlebotomist Part Time Name Role Phone Brian Garay MD Primary Care Provider [phone] [facility] [place] Unavailable [phone] Allergies Active Allergy Reactions Criticality Noted Date [...] type, unspecified whether angina present, unspecified whether [place] or transplanted heart,S/P CABG x 3 Take [...] type, unspecified whether angina present, unspecified whether [place] or transplanted heart Take 1 Tablet (10 [...] type, unspecified whether angina present, unspecified whether [place] or transplanted heart,S/P CABG x 3 Take 1 Tablet (20 mg) by mouth once daily. 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 Overview (01/02/2024): 01/01/2024 s/p Coronary artery bypass grafting x3 (LUGO -> LAD, SVG -> PDA, SVG - > OM1) Shock circulatory 01/02/2024 Severe aortic stenosis 2023 COLLAZO (dyspnea on exertion) 2023 Moderate mitral regurgitation 2023 Coronary atherosclerosis of unspecified type of vessel, [place] or graft 06/15/2005 Overview (06/15/2005): s/p NARESH [...] Type Department Care Team Description 06/22/2024 Telephone [facility] [address] [facility] [address] [place] [phone] Kobi Disla MD, PhD Medication Management (Warfarin) 06/18/2024 1:30 PM CDT Office Visit [facility] [address] [place] [address] Kobi Disla MD, PhD CV General Cardiology Est 06/15/2024 Telephone [facility] [place] [address] [facility] [address] [place] [phone] Lindsey Corrales PA Results ([employer]) 06/02/2024 10:46 AM SERVER SYSTEMS ADMINISTRATOR - 06/02/2024 11:59 PM SERVER SYSTEMS ADMINISTRATOR Hospital Encounter [facility] [address] [place] [address] Atherosclerosis of coronary artery, unspecified vessel or lesion type, unspecified whether angina present, unspecified whether prairie island or transplanted heart; S/P CABG x 3; Paroxysmal atrial fibrillation (HC); Paroxysmal A-fib (HC); COLLAZO (dyspnea on exertion) 06/02/2024 10:00 AM SERVER SYSTEMS ADMINISTRATOR Office Visit [facility] [place] [address] [place] [address] Case, RAMON Jung Follow Up (F/U. Needs clearance for colonoscopy, ekg prior. Pt states feeling good, no recent or current cardiac symptoms. Questions about meds and if she can stop taking some) 06/02/2024 Orders Only [facility] [place] [address] [place] [address] Case, RAMON Jung 1 scan: (1-Ord) ZIOREPORTS 06/02/2024 Orders Only [facility] [place] [address] [place] [address] Case, RAMON Jung <No scans attached> 06/02/2024 [...] on file Legal Sex Female 6:12 AM SERVER SYSTEMS ADMINISTRATOR Gender Identity Not on file Sexual Orientation Not on file Obstetrics History Last Filed Vital Signs Vital Sign Reading Time Taken Comments Blood Pressure 160/76 06/02/2024 10:03 AM SERVER SYSTEMS ADMINISTRATOR Pulse 75 06/02/2024 10:03 AM SERVER SYSTEMS ADMINISTRATOR Temperature 36.1 C (97 F) 02/10/2024 8:19 AM SERVER SYSTEMS ADMINISTRATOR Respiratory Rate 16 02/10/2024 8:19 AM SERVER SYSTEMS ADMINISTRATOR Oxygen Saturation 95% 06/02/2024 10:03 AM SERVER SYSTEMS ADMINISTRATOR Inhaled Oxygen Concentration - - Weight 62.4 kg (137 lb 9.6 oz) 06/02/2024 10:03 AM SERVER SYSTEMS ADMINISTRATOR Height 162.6 cm (5' 4) 06/02/2024 10:03 AM SERVER SYSTEMS ADMINISTRATOR Body Mass Index 23.62 06/02/2024 10:03 AM SERVER SYSTEMS ADMINISTRATOR Plan of Treatment Health Maintenance Due Date [...] 02/20/2022, 08/28/2011 Medical Devices Implanted Type Area Graphic Technician Device Identifier Shelf Expiration Date Model / Serial / Lot Valve Aortic 19mm Inspirus Resilia Tissue - [id number] Implanted:Qty: 1 on 01/01/2024 by Dahiana Ventura MD at [facility] N/A: Aortic Valve [employer] [id number] 11/12/2026 [id number] / [id number] / Description:No rinse per man ufacturer's instructions. Procedures Procedure Name Priority Date/Time Associated Diagnosis Comments T4,FREE Today 06/02/2024 11:10 AM SERVER SYSTEMS ADMINISTRATOR Atherosclerosis of coronary artery, unspecified vessel or lesion type, unspecified whether angina present, unspecified whether [place]irie [place] or transplanted heart S/P CABG x 3 Paroxysmal atrial fibrillation (HC) Paroxysmal A-fib (HC) COLLAZO (dyspnea on exertion) PRO-BNP Today 06/02/2024 11:10 AM SERVER SYSTEMS ADMINISTRATOR COLLAZO (dyspnea on exertion) COMP METABOLIC PANEL Today 06/02/2024 11:10 AM SERVER SYSTEMS ADMINISTRATOR Atherosclerosis of coronary artery, unspecified vessel or lesion type, unspecified whether angina present, unspecified whether [place] or transplanted heart S/P CABG x 3 Paroxysmal atrial fibrillation (HC) Paroxysmal A-fib (HC) CBC W PLT NO DIFF Today 06/02/2024 11: 10 AM SERVER SYSTEMS ADMINISTRATOR Atherosclerosis of coronary artery, unspecified vessel or lesion type, unspecified whether angina present, unspecified whether [place] or transplanted heart S/P CABG x 3 Paroxysmal atrial fibrillation (HC) Paroxysmal A-fib (HC) TSH Today 06/02/2024 11:10 AM SERVER SYSTEMS ADMINISTRATOR Atherosclerosis of coronary artery, unspecified vessel or lesion type, unspecified whether angina present, unspecified whether [place] or transplanted heart S/P CABG x 3 Paroxysmal atrial fibrillation (HC) Paroxysmal A-fib (HC) EKG 12 LEAD Today 06/02/2024 9:51 AM SERVER SYSTEMS ADMINISTRATOR Paroxysmal atrial fibrillation (HC) EXTENDED HOLTER Routine 06/02/2024 Paroxysmal atrial fibrillation (HC) from Last 3 Months Results * (ABNORMAL) TSH (06/02/2024 11:10 AM SERVER SYSTEMS ADMINISTRATOR) TSH 4.77(H) 0.27 - 4.20 uIU/mL 06/02/2024 12:05 PM SERVER SYSTEMS ADMINISTRATOR [facility] Blood BLOOD SPECIMEN / Unknown Venipuncture / Unknown 06/02/2024 11:10 AM SERVER SYSTEMS ADMINISTRATOR 06/02/2024 11:11 AM SERVER SYSTEMS ADMINISTRATOR Narrative [facility] - 06/02/2024 12:05 PM SERVER SYSTEMS ADMINISTRATOR In Adults, TSH values between 5.00 and 10.00 uIU/ml do not necessarily indicate the presence of Hypothyroidism. Correlation with clinical findings such as presence of goiter and/or Thyroperoxidase (TPO) Antibody may be helpful. For more information please refer to ANABELLA 2004; 291: 228-238. us Lindsey NAVARRO CHEMISTRY Final Res ult [facility] [address] [place] [address] * (ABNORMAL) CBC W PLT NO DIFF (06/02/2024 11:10 AM SERVER SYSTEMS ADMINISTRATOR) WHITE BLOOD COUNT 5.7 4.5 - 11.0 thou/cu mm 06/02/2024 11:24 AM SERVER SYSTEMS ADMINISTRATOR [facility] RED BLOOD COUNT 4.23 4.00 - 5.20 mil/cu mm 06/02/2024 11:24 AM [facility] HEMOGLOBIN 11.7(L) 12.0 - 16.0 g/dL 06/02/2024 11:24 AM [facility] HEMATOCRIT 36.6 33.0 - 51.0 % 06/02/2024 11:24 AM [facility] MCV 87 80 - 100 fL 06/02/2024 11:24 AM [facility] MCH 27.7 26.0 - 34.0 pg 06/02/2024 11:24 AM [facility] MCHC 32.0 32.0 - 36.0 g/dL 06/02/2024 11:24 AM [facility] RDW 18.6(H) 11.5 - 15.5 % 06/02/2024 11:24 AM [facility] PLATELET COUNT 272 140 - 440 thou/cu mm 06/02/2024 11:24 AM [facility] MPV 9.6 6.5 - 11.0 fL 06/02/2024 11:24 AM [facility] NRBC 0.0 % 06/02/2024 11:24 AM [facility] ABS NRBC 0.0 thou /cu mm 06/02/2024 11:24 AM [facility] Blood BLOOD SPECIMEN / Unknown Venipuncture / Unknown 06/02/2024 11:10 AM SERVER SYSTEMS ADMINISTRATOR 06/02/2024 11:11 AM SERVER SYSTEMS ADMINISTRATOR Narrative [facility] - 06/02/2024 11:24 AM SERVER SYSTEMS ADMINISTRATOR This procedure was originally ordered at [facility]. us Lindsey NAVARRO HEMATOLOGY Final Res ult [facility] [address] [place] [address] * T4,FREE (06/02/2024 11:10 AM SERVER SYSTEMS ADMINISTRATOR) T4,FREE 1.62 0.93 - 1.70 ng/dL 06/02/2024 7:50 PM SERVER SYSTEMS ADMINISTRATOR [facility] Blood BLOOD SPECIMEN / Unknown Venipuncture / Unknown 06/02/2024 11:10 AM SERVER SYSTEMS ADMINISTRATOR 06/02/2024 11:11 AM SERVER SYSTEMS ADMINISTRATOR us Lindsey NAVARRO CHEMISTRY Final Res ult Performing Organization Address City/[facility]/ZIP Co de Phone Number [facility] [address] [place] [phone], * (ABNORMAL) PRO-BNP (06/02/2024 11:10 AM SERVER SYSTEMS ADMINISTRATOR) PRO-BNP 1,516(H) <450 pg/mL 06/02/2024 12:10 PM SERVER SYSTEMS ADMINISTRATOR [facility] Blood BLOOD SPECIMEN / Unknown Venipuncture / Unknown 06/02/2024 11:10 AM SERVER SYSTEMS ADMINISTRATOR 06/02/2024 11:11 AM SERVER SYSTEMS ADMINISTRATOR Narrative [facility] - 06/02/2024 12:10 PM SERVER SYSTEMS ADMINISTRATOR The following cut-points have been suggested for [...] Lindsey NAVARRO SEND OUTS Final Res ult [facility] [address] [place] [address] * (ABNORMAL) COMP METABOLIC PANEL (06/02/2024 11:10 AM SERVER SYSTEMS ADMINISTRATOR) SODIUM 139 136 - 145 mmol/L 06/02/2024 12:05 PM [facility] POTASSIUM 3.3(L) 3.5 - 5.1 mmol/L 06/02/2024 12:05 PM [facility] CHLORIDE 102 98 - 107 mmol/L 06/02/2024 12:05 PM [facility] CO2,TOTAL 26 22 - 29 mmol/L 06/02/2024 12:05 PM [facility] ANION GAP 11 5 - 18 06/02/2024 12:05 PM [facility] GLUCOSE 152(H) 70 - 99 mg/dL 06/02/2024 12:05 PM [facility] CALCIUM 9.1 8.8 - 10.4 mg/dL 06/02/2024 12:05 PM [facility] Comment: Reference ranges for this test were updated on 02/04/2024 to reflect our healthy population more accurately. Reference range changes are not retroactively applied to results, but previous results using the same methodology can be interpreted in the context of the new reference range. BUN 14 8 - 23 mg/dL 06/02/2024 12:05 PM [facility] CREATININE 0.71 0.50 - 0.90 mg/dL 06/02/2024 12:05 PM [facility] BUN/CREAT RATIO 20 10 - 20 12:05 PM [facility] eGFR 83(L) >90 mL/min/1.7 3m2 06/02/2024 12:05 PM [facility] Comment:As of 2021, eG FR is calculated by the CKD-EPI creatinine equation without race adjustment. eGFR can be influenced by muscle mass, exercise, and diet. The reported eGFR is an estimation only and is only applicable if the renal function is stable. ALBUMIN 3.8(L) 4.0 - 4.9 g/dL 06/02/2024 12:05 PM [facility] PROTEIN,TOTAL 7.4 6.0 - 8.0 g/dL 06/02/2024 12:05 PM [facility] BILIRUBIN,TOTAL 0.2 0.0 - 1.2 mg/dL 06/02/2024 12:05 PM [facility] ALK PHOSPHATASE 66 35 - 104 IU/L 06/02/2024 12:05 PM [facility] ALT (SGPT) 30 10 - 35 IU/L 06/02/2024 12:05 PM [facility] AST (SGOT) 44(H) 10 - 35 IU/L 06/02/2024 12:05 PM [facility] Blood BLOOD SPECIMEN / Unknown Venipuncture / Unknown 06/02/2024 11:10 AM SERVER SYSTEMS ADMINISTRATOR 06/02/2024 11:11 AM SERVER SYSTEMS ADMINISTRATOR Lindsey NAVARRO CHEMISTRY Final Res ult [place] [id number] * EKG 12 LEAD (06/02/2024 9:51 AM SERVER SYSTEMS ADMINISTRATOR) Interpretation Normal sinus rhythm Left ventricular hypertrophy with QRS widening and repolarization abnormality ( R in aVL , Sokolow-So , [place] product , Romhilt-Munroe ) Inferior infarct , age undetermined Abnormal ECG When compared with ECG of 07-Jan-2024 07:49, Inferior infarct is now Present T wave inversion more evident in Inferior leads Ventricular Rate 75 BPM Atrial Rate 75 BPM P-R Interval 176 ms QRS Duration 126 ms QT 424 ms QTc 473 ms P [place] 5 degrees R [place] 28 degrees T [place] 234 degrees 06/02/2024 9:51 AM SERVER SYSTEMS ADMINISTRATOR 06/06/2024 9:46 AM SERVER SYSTEMS ADMINISTRATOR Lindsey NAVARRO EKG ORD Final Res ult * ZIO PATCH XT - weekly to monthly symptoms. (06/02/2024) 06/02/2024 Narrative Sudheer Sahbazz MD - 06/15/2024 12:00 AM CDT Agree [...] MEDICARE PART A HB ONLY BLUE CROSS [place]NANA BLUE MR PB ONLY MEDICARE PART B HB ONLY [employer]UE [employer]OSS [place] BLUE HB ONLY [employer] PPS Advance Directives [...] 9:05 AM 06/14/2005 11:46 AM Care Teams Registered Phlebotomist Part Time Relationship Specialty Start Date End Date Brian Garay MD PCP - General 08/19/[address] [address] 01/11/24
--- OUTSIDE RECORDS SUMMARY | 2024-06-23 21:33 | XMS_ITS | Encounter Summary ---
Author Organization [facility] Address [address] [place] [address] Care Team Providers Care Manager Solution Name Role Phone None Reported, Pcp Primary Care Provider Unavail able Reason for Referral * Outpatient (Routine) - Canceled Specialty Diagnoses / Procedures Referred By Jordan t Referred To Contact Diagnoses Replacement Aortic Valve Tissue Coronary Arterial Bypass Graft Status Post Personal History Procedures Cardiac Rehab [place] [address] Phone: tel: fax: [facility] Referral ID Status Reason Start Date Expiration Date V isits Requested Visits Authorized [id number] Canceled 02/20/2024 02/19/2025 45 45 Reason for Visit * Outpatient (Routine) - Canceled Specialty Diagnoses / Procedures Referred By Jordan rubio Referred To Contact Diagnoses Replacement Aortic Valve Tissue Coronary Arterial Bypass Graft Status Post Personal History Procedures Cardiac Rehab [place] [address] Phone: tel: fax: [facility] Region Referral ID Status Reason Start Date Expiration Date V isits Requested Visits Authorized [id number] Canceled 02/20/2024 02/19/2025 45 45 Encounter Details Date Type Department Care Team (Latest Contact Info) Description 06/15/2024 1:45 PM CDT - 06/15/2024 11:59 PM CDT Hospital Encounter Department of Cardiac Rehabilitation in [place], [place] [address] [place] [phone] [address] M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
--- OUTSIDE RECORDS SUMMARY | 2024-06-23 21:33 | XMS_ITS | Encounter Summary ---
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 Ms. Cody (88 y.o., : 1935, ) was referred to the [facility] on 02/10/2024, by Lakisha and has completed 36 sessions out of the 36 prescribed. PCP: Pcp None Reported Agent Ticketing Gate: Lakisha Torrez [facility] Program: Cardiac Rehab Phase II Type: Center-Based Intake Date: 02/20/2024 Date of Enrollment: 02/24/2024 Primary Diagnosis: Valve 01/01/2024 Secondary Diagnosis: CABG 01/01/2024 AACVPR Risk: No data was found 02/20/2024 03/19/2024 04/16/2024 05/14/2024 06/11/2024 06/15/2024 Symptoms ITP Inclusion: Symptoms Initial Reassessment Reassessment Reassessment Reassessment Discharge Synopsis Patient is a 88 year old female that had-- Aortic valve replacement with [id number] mm tissue valve, Coronary artery bypass grafting x3 (LUGO -> LAD, 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 Patient has attended 11 sessions of cardiac rehab and feels it has been going well. Patient had Aortic valve replace ment with [id number] mm tissue valve, Coronary artery bypass grafting [...] Education Documentation Risk Factors For Heart Disease [id number], taught by Skye Juarez at 03/06/2024 2:47 [...] d/c. Exercise Education Documentation Exercise Program Guidelines [id number], taught by Gosia Rivas R.N. at 03/13/2024 10:24 AM. Learner: Patient Readiness: Eager Method: Explanation Response: Able to Teach Back Move More and Sit Less the NEAT Way [id number], taught by Gosia Rivas R.N. at 04/22/2024 1:59 PM. Learner: Patient Readiness: Eager Method: Explanation Response: Able to Teach Back Benefits and Barriers Of Exercise [id number], taught by Gosia Rivas R.N. at 04/20/2024 1:52 PM. Learner: Patient Readiness: Eager Method: Explanation Response: Able to Teach Back Interval Training [id number], taught by Skye Juarez at 03/23/2024 3:09 PM. Learner: Patient Readiness: Eager Method: Explanation, Handout, Class / Group Response: Able to Teach Back Stretches [id number], taught by Skye Juarez at 03/18/2024 3:09 [...] Nutrition Guidelines for Cholesterol, Triglycerides and Sodium [id number], taught by Skye Juarez at 04/03/2024 3:01 PM. Learner: Patient Readiness: Eager Method: Explanation, Handout, Class / Group Response: Able to Teach Back How to Read a Food Label [id number], taught by Gosia Rivas R.N. at 03/30/2024 2:47 PM. Learner: Patient Readiness: Eager Method: Explanation Response: Able to Teach Back Mediterranean Diet Pyramid: Guidelines for Adults [id number], taught by Skye Juarez at 02/26/2024 3:06 PM. Learner: Patient Readiness: Eager Method: Explanation, Handout, Class / Group Response: Able to Teach Back Mediterranean Diet [id number], taught by Skye Juarez at 02/26/2024 3:06 PM. Learner: Patient Readiness: Eager Method: Explanation, Handout, Class / Group Response: Able to Teach Back Psychosocial Assessment 06/15/2024 PHQ-9 PHQ-9 Total Score (max 27) 0 PHQ-9 Interpretation None to minimal depression 06/15/2024 [facility] Total Score 12 02/20/2024 03/19/2024 04/16/2024 [...] of d/c. Psychosocial Education Documentation Relaxation Techniques [id number], taught by Skye Juarez at 04/10/2024 3:02 PM. Learner: Patient Readiness: Eager Method: Explanation, Handout, Class / Group Response: Able to Teach Back Stress Reducers [id number], taught by Skye Juarez at 04/08/2024 3:04 PM. Learner: Patient Readiness: Eager Method: Explanation, Handout, Class / Group Response: Able to Teach Back Stress Management [id number], taught by Gosia Rivas RJacklynN. at 04/08/2024 1:47 PM. Learner: Patient Readiness: Eager Method: Explanation Response: Able to Teach Back Knowing About Depression Finding Your Way [id number], taught by Skye Juarez at 04/06/2024 3:04 PM. Learner: Patient Readiness: Eager Method: Explanation, Handout, Class / Group Response: Able to Teach Back My Road to Better Health Sleep [id number], taught by Gosia Rivas R.N. at 03/04/2024 [...] High Blood Pressure Also Known as Hypertension [id number], taught by Gosia Rivas R.N. at 04/15/2024 2:02 PM. Learner: Patient Readiness: Eager Method: Explanation Response: Able to Teach Back Risk Factors For Heart Disease [id number], taught by Skye Juarez at 03/06/2024 2:47 [...] Medication Compliance Education Documentation Managing Your Medications [id number], taught by Skye Juarez at 04/17/2024 2:37 [...] as of this encounter Care Teams Manager Document Relationship Specialty Start Date End Date None Reported, Pcp PCP - General Family Medicine 02/28/24 documented as of this encounter
--- OUTSIDE RECORDS SUMMARY | 2024-06-23 21:33 | XMS_ITS | Encounter Summary ---
Author Organization [facility] Address [address] [place] [address] Care Team Providers Care Dining Room Captain Name Role Phone None Reported, Pcp Primary Care Provider Unavail able Encounter Details Date Type Department Care Team (Latest Contact Info) Description 06/11/2024 Plan of Care Documentation Department of Cardiac Rehabilitation in [place] [address] [place] [address] Social History Tobacco Use Types Packs/Day Years Used Date Smoking Tobacco: Never Dental Answer Date Recorded Dental: Regular Dentist Unknown 12/04/19 24 Comments Unknown Sex and Gender Information Value Date Recorded Sex Assigned at Not on file 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 - 06/11/2024 9:11 AM CDT Ms. Cody (88 y.o., : 1935, ) was referred to the [facility] on 02/10/2024, by Lakisha and has completed 34 sessions out of the 36 prescribed. PCP: Pcp None Reported Floor Coverings Installer: Lakisha Torrez [facility] Program: Cardiac Rehab Phase II Type: Center-Based Intake Date: 02/20/2024 Date of Enrollment: 02/24/2024 Primary Diagnosis: Valve 01/01/2024 Secondary Diagnosis: CABG 01/01/2024 AACVPR Risk: No data was found 02/20/2024 03/19/2024 04/16/2024 05/14/2024 06/11/2024 Symptoms ITP Inclusion: Symptoms Initial Reassessment Reassessment Reassessment Reassessment Synopsis Patient is a 88 year old female that had-- Aortic valve replacement with [id number] mm tissue valve, Coronary artery bypass grafting x3 (LUGO -> LAD, 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 Patient has attended 11 sessions of cardiac rehab and feels it has been going well. Patient had Aortic valve replace ment with [id number] mm tissue valve, Coronary artery bypass grafting [...] % 55 % 55 % 55 % [place] [employer] Functional Class I - Normal [...] sessions. Exercise Education Documentation Exercise Program Guidelines [id number], taught by Gosia Rivas R.N. at 03/13/2024 10:24 AM. Learner: Patient Readiness: Eager Method: Explanation Response: Able to Teach Back Move More and Sit Less the NEAT Way HI4514, taught by Gosia Rivas R.N. at 04/22/2024 1:59 PM. Learner: Patient Readiness: Eager Method: Explanation Response: Able to Teach Back Benefits and Barriers Of Exercise [id number], taught by Gosia Rivas R.N. at 04/20/2024 1:52 PM. Learner: Patient Readiness: Eager Method: Explanation Response: Able to Teach Back Interval Training EP2919, taught by Skye Juarez at 03/23/2024 3:09 PM. Learner: Patient Readiness: Eager Method: Explanation, Handout, Class / Group Response: Able to Teach Back Stretches [id number], taught by Skye Juarez at 03/18/2024 3:09 [...] Nutrition Guidelines for Cholesterol, Triglycerides and Sodium [id number], taught by Skye Juarez at 04/03/2024 3:01 PM. Learner: Patient Readiness: Eager Method: Explanation, Handout, Class / Group Response: Able to Teach Back How to Read a Food Label [id number], taught by Gosia Rivas R.N. at 03/30/2024 2:47 PM. Learner: Patient Readiness: Eager Method: Explanation Response: Able to Teach Back Mediterranean Diet Pyramid: Guidelines for Adults [id number], taught by Skye Juarez at 02/26/2024 3:06 PM. Learner: Patient Readiness: Eager Method: Explanation, Handout, Class / Group Response: Able to Teach Back Mediterranean Diet [id number], taught by Skye Juarez at 02/26/2024 3:06 [...] upcoming sessions. Psychosocial Education Documentation Relaxation Techniques [id number], taught by Skye Juarez at 04/10/2024 3:02 PM. Learner: Patient Readiness: Eager Method: Explanation, Handout, Class / Group Response: Able to Teach Back Stress Reducers [id number], taught by Skye Juarez at 04/08/2024 3:04 PM. Learner: Patient Readiness: Eager Method: Explanation, Handout, Class / Group Response: Able to Teach Back Stress Management GD0597, taught by Gosia Rivas R.N. at 04/08/2024 1:47 PM. Learner: Patient Readiness: Eager Method: Explanation Response: Able to Teach Back Knowing About Depression Finding Your Way [id number], taught by Skye Juarez at 04/06/2024 3:04 PM. Learner: Patient Readiness: Eager Method: Explanation, Handout, Class / Group Response: Able to Teach Back My Road to Better Health Sleep [id number], taught by Gosia Rivas R.N. at 03/04/2024 [...] High Blood Pressure Also Known as Hypertension MF3163, taught by Gosia Rivas R.N. at 04/15/2024 2:02 PM. Learner: Patient Readiness: Eager Method: Explanation Response: Able to Teach Back Risk Factors For Heart Disease [id number], taught by Skye Juarez at 03/06/2024 2:47 [...] Medication Compliance Education Documentation Managing Your Medications [id number], taught by Skye Juarez at 04/17/2024 2:37 [...] on filedocumented in this encounter Care Teams Dining Room Captain Relationship Specialty Start Date End Date None Reported, Pcp PCP - General Family Medicine 02/28/24 documented as of this encounter
--- OUTSIDE RECORDS SUMMARY | 2024-06-23 21:33 | XMS_ITS | Encounter Summary ---
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 [address] Phone: tel: fax: [facility] Referral ID Status Reason Start Date Expiration Date V isits Requested Visits Authorized [id number] Canceled 02/20/2024 02/19/2025 45 45 Encounter Details Date Type Department Care Team (Latest Contact Info) Description 06/10/2024 1:39 PM CDT - 06/10/2024 11:59 PM CDT Hospital Encounter Department of Cardiac Rehabilitation in [place], [place] [address] [place] [phone] Keon Peace M.D. 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
--- OUTSIDE RECORDS SUMMARY | 2024-06-23 21:33 | XMS_ITS | Encounter Summary ---
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 [address] Phone: tel: fax: [facility] Region Referral ID Status Reason Start Date Expiration Date V isits Requested Visits Authorized [id number] Canceled 02/20/2024 02/19/2025 45 45 Encounter Details Date Type Department Care Team (Latest Contact Info) Description 06/12/2024 1:45 PM CDT - 06/12/2024 11:59 PM CDT Hospital Encounter Department of Cardiac Rehabilitation in [place], [place] [address] [place] [phone] Keon Peace M.D. [address] [place] [phone] Replacement Aortic Valve Tissue; Coronary Arterial Bypass Graft Status Post Personal History Discharge Disposition: Home or Self Care Social History Tobacco Use Types Packs/Day Years Used Date Smoking Tobacco: Never Dental Answer Date Recorded Dental: Regular Dentist Unknown 12/04/19 24 Comments Unknown Sex and Gender Information Value Date Recorded Sex Assigned at Not on file Legal Sex Female 4:49 PM SOCIAL SERVICE COORDINATOR Gender Identity Not on file Sexual Orientation [...] History documented in this encounter Care Teams Gui Developer Relationship Specialty Start Date End Date None Reported, Pcp PCP - General Family Medicine 02/28/24 documented as of this encounter
[2024-06-23] MEDS: AMLODIPINE 5 MG TABLET 2.5 MG PO ×2 (21:34→23:02)
[2024-06-23] MEDS: TRANEXAMIC ACID 100 MG/ML INJ 1000 MG IV (22:42)
[2024-06-23 22:43] VITALS: BP 207/91; PULSE 78; RESP 18
[2024-06-23 22:49] LABS: Basophils Absolute Auto 0.02 K/uL (0.00-0.30); Basophils Percent Auto 0.2 % (0.0-3.0); Eosinophils Absolute Auto 0.19 K/uL (0.00-0.50); Eosinophils Percent Auto 2.3 % (0.0-7.0); Hematocrit 31.3 % (33.0-51.0); Hemoglobin* 10.1 gm/dL (12.0-16.0); Immature Granulocytes Abs Auto 0.14 K/uL (0.00-0.30); Immature Granulocytes Pct Auto 1.7 %; Mean Corpuscular HGB Conc 32 gm/dL (32-36); Mean Corpuscular Hemoglobin 28 pg (26-34); Mean Corpuscular Volume 86 fL (80-100); Monocytes Percent Auto 11.4 % (0.0-11.0); Neutrophils Absolute Auto 5.65 K/uL (1.7-7.0); Neutrophils Percent Auto 67.4 % (42.0-72.0); Platelet Count* 267 K/uL (140-440); RDW Coefficient of Variation % 17.8 % (11.5-15.5); Red Blood Count 3.63 m/uL (4.00-5.20); White Blood Count* 8.39 K/uL (4.50-11.00)
[2024-06-23 22:55] LABS: Slide Review Reflex No
[2024-06-23 23:06] LABS: INR 2.76 (0.91-1.10); Prothrombin Time 30.4 Seconds
[2024-06-23 23:53] VITALS: BP 182/86; PULSE 81; RESP 16; O2SAT 94
--- NOTE | 2024-06-23 23:54 | ED.NURSE ---
Pt fitted with rhino rocket by . Pt provided with nasal clamp and gauze in case of rebleeding.
== END 2024-06-23 23:56 | disposition home or self-care (01) ==
PROVIDERS: Emergency Provider Family Medicine; PCP Family Medicine
DX: R04.0 Epistaxis (principal); I10 Essential (primary) hypertension
CPT/HCPCS: 30901; 36415; 85025; 85610; 99284; A9270

== ENCOUNTER 2024-06-24 13:38 | Outpatient (CLI) | payer MEDICARE, BC, SELFPAY | END 2024-06-24 13:39 | disposition home or self-care (01) | LOC: NFLDREF 06-25 06:27 | PROVIDERS: PCP Family Medicine; Referring Provider Family Medicine; Visit Provider Family Medicine | DX: E78.00 Pure hypercholesterolemia, unspecified (principal); I25.10 Atherosclerotic heart disease of native coronary artery without angina pectoris; R19.7 Diarrhea, unspecified; R10.13 Epigastric pain; E03.9 Hypothyroidism, unspecified; E11.9 Type 2 diabetes mellitus without complications; Z86.79 Personal history of other diseases of the circulatory system; Z01.818 Encounter for other preprocedural examination | CPT/HCPCS: 80061; 80076 ==

== ENCOUNTER 2024-06-30 09:25 | Outpatient (CLI) | payer MEDICARE, BC, SELFPAY ==
--- NOTE | 2024-06-30 09:38 | P.ANES_ITS ---
Anesthesia Charges Start Date/Time Anesthesia Start Date: 06/30/24 Anesthesia Start Time: 10:03 Stop Date/Time Anesthesia Stop Date: 06/30/24 Anesthesia Stop Time: 10:28 Summary Extremes of Age - Over 70 or under 1: PUBLIC SAFETY OFFICER Coding CPT Codes CPT Codes: ANES LWR INTST NDSC NOS - 55096 ([id number]) QZ - PUBLIC SAFETY OFFICER SVC W/O STUDENT UNION CONSULTANT BY , P4 - PT W/SEV SYS DIS THREAT LIFE Additional Codes: Summary - Extremes of Age - Over 70 or under 1: PUBLIC SAFETY OFFICER ([id number])
--- NOTE | 2024-06-30 09:38 | W.ANESCHARGE ---
Anesthesia Charges Start Date/Time Anesthesia Start Date: 06/30/24 Anesthesia Start Time: 10:03 Stop Date/Time Anesthesia Stop Date: 06/30/24 Anesthesia Stop Time: 10:28 Summary Extremes of Age - Over 70 or under 1: ANNUAL GIVING DIRECTOR Coding CPT Codes CPT Codes: ANES LWR INTST NDSC NOS - 78818 ([id number]) QZ - ANNUAL GIVING DIRECTOR SVC W/O WIRE GALVANIZER BY , P4 - PT W/SEV SYS DIS THREAT LIFE Additional Codes: Summary - Extremes of Age - Over 70 or under 1: ANNUAL GIVING DIRECTOR ([id number])
== END 2024-06-30 09:26 | disposition home or self-care (01) ==
LOC: OP CLINIC 09:26
PROVIDERS: PCP Family Medicine; Visit Provider Internal Medicine
DX: K52.9 Noninfective gastroenteritis and colitis, unspecified (principal); K57.30 Diverticulosis of large intestine without perforation or abscess without bleeding
CPT/HCPCS: 00811; 45380; 88305; 99100; J2704

== ENCOUNTER 2024-07-10 14:08 | Outpatient (CLI) | payer MEDICARE, BC, SELFPAY | END 2024-07-10 14:09 | disposition home or self-care (01) | LOC: NFLDREF 07-14 02:48 | PROVIDERS: PCP Family Medicine; Referring Provider Family Medicine; Visit Provider Family Medicine | DX: E03.9 Hypothyroidism, unspecified (principal) | CPT/HCPCS: 84443 ==

== ENCOUNTER 2024-07-17 13:47 | Outpatient (CLI) | payer MEDICARE, BC, SELFPAY | END 2024-07-17 13:48 | disposition home or self-care (01) | LOC: NFLDREF 07-18 07:10 | PROVIDERS: PCP Family Medicine; Referring Provider Family Medicine; Visit Provider Family Medicine | DX: Z79.01 Long term (current) use of anticoagulants (principal); Z95.2 Presence of prosthetic heart valve | CPT/HCPCS: 85610 ==

== ENCOUNTER 2024-08-03 12:57 | Outpatient (CLI) | payer MEDICARE, BC, SELFPAY | END 2024-08-03 12:58 | disposition home or self-care (01) | LOC: RAD 12:59 | PROVIDERS: PCP Family Medicine; Visit Provider Internal Medicine | DX: I25.10 Atherosclerotic heart disease of native coronary artery without angina pectoris (principal); I51.7 Cardiomegaly; I34.0 Nonrheumatic mitral (valve) insufficiency; I07.1 Rheumatic tricuspid insufficiency; I27.20 Pulmonary hypertension, unspecified; Z95.2 Presence of prosthetic heart valve; Z95.1 Presence of aortocoronary bypass graft | CPT/HCPCS: 93306 ==

== ENCOUNTER 2024-08-06 13:10 | Outpatient (CLI) | payer MEDICARE, BC, SELFPAY | END 2024-08-06 13:11 | disposition home or self-care (01) | PROVIDERS: PCP Family Medicine; Referring Provider Family Medicine; Visit Provider Family Medicine | DX: R60.0 Localized edema (principal) | CPT/HCPCS: 80048 ==

== ENCOUNTER 2024-08-10 13:25 | Outpatient (CLI) | payer MEDICARE, BC, SELFPAY | END 2024-08-10 13:26 | disposition home or self-care (01) | LOC: NFLDREF 08-18 23:23 | PROVIDERS: PCP Family Medicine; Referring Provider Family Medicine; Visit Provider Family Medicine | DX: I10 Essential (primary) hypertension (principal); R60.9 Edema, unspecified; E87.6 Hypokalemia | CPT/HCPCS: 80048 ==

== ENCOUNTER 2024-08-20 14:37 | Outpatient (CLI) | payer MEDICARE, BC, SELFPAY | END 2024-08-20 14:38 | disposition home or self-care (01) | LOC: NFLDREF 08-26 18:20 | PROVIDERS: PCP Family Medicine; Visit Provider Internal Medicine | DX: I50.89 Other heart failure (principal); R19.7 Diarrhea, unspecified; E78.5 Hyperlipidemia, unspecified | CPT/HCPCS: 80048; 80061; 80076; 83880 ==

== ENCOUNTER 2024-09-14 09:40 | Outpatient (CLI) | payer MEDICARE, BC, SELFPAY | END 2024-09-14 09:41 | disposition home or self-care (01) | LOC: NFLDREF 09-18 08:39 | PROVIDERS: PCP Family Medicine; Referring Provider Family Medicine; Visit Provider Family Medicine | DX: E11.9 Type 2 diabetes mellitus without complications (principal); I10 Essential (primary) hypertension; E78.00 Pure hypercholesterolemia, unspecified; E03.9 Hypothyroidism, unspecified; R53.83 Other fatigue; E78.5 Hyperlipidemia, unspecified; I25.10 Atherosclerotic heart disease of native coronary artery without angina pectoris; Z95.2 Presence of prosthetic heart valve; Z79.899 Other long term (current) drug therapy | CPT/HCPCS: 80053; 80061; 82043; 82570; 82607; 84443 ==

== ENCOUNTER 2024-11-06 14:26 | Outpatient (CLI) | payer MEDICARE, BC, SELFPAY | END 2024-11-06 14:27 | disposition home or self-care (01) | LOC: NFLDUCREF 14:27 | PROVIDERS: PCP Family Medicine | DX: R10.9 Unspecified abdominal pain (principal); R53.83 Other fatigue; R30.0 Dysuria | CPT/HCPCS: 87086 ==

== ENCOUNTER 2024-11-06 15:04 | Emergency (ER) | payer MEDICARE, BC, SELFPAY ==
[2024-11-06] VITALS (7 sets, daily range): BP systolic 97–156; BP diastolic 49–70; PULSE 65–76; RESP 18–20; TEMP 36.6; O2SAT 94–98; BMI 23.0
--- OUTSIDE RECORDS SUMMARY | 2024-11-06 15:07 | XMS_ITS | Clinical Summary ---
Author Organization [facility] Address [address] [place] [address] Care Team Providers Care Head Sawyer Name Role Phone None Reported, Pcp Primary Care Provider Unavail able Source Comments Patient records contain information from all sites at [facility]. For routine questions regarding patient records, call [phone] during business hours, M-F 8:00 AM - 5:00 PM Central Time. Record requests for emergency care only can be directed to [phone] at any time.[facility] Allergies Active Allergy Reactions Criticality Noted Date Comments Penicillin Itching 02/20/2024 Penicillins Hives only, no other systemic symptoms,Itching Low 06/12/2005 Medications No known medications Active Problems No known active problems Social History Tobacco Use Types Packs/Day Years Used Date Smoking Tobacco: Never Depression Answer Date Recor ded PHQ-9 Total Score (max 27) 0 06/15 Comments Unknown Sex and Gender Information Value Date Recorded Sex Assigned at Not on file Legal Sex Female 4:49 PM SCHOOL BUSINESS MANAGER Gender Identity Not on file Sexual Orientation Not on file Last Filed Vital Signs Vital Sign Reading Time Taken Comments Blood Pressure 141/70 02/28/2024 3:40 PM SCHOOL BUSINESS MANAGER Pulse 80 02/28/2024 3:40 PM SCHOOL BUSINESS MANAGER Temperature 36.5 C (97.7 F) 02/28/2024 3:40 PM SCHOOL BUSINESS MANAGER Respiratory Rate 17 02/28/2024 3:40 PM SCHOOL BUSINESS MANAGER Oxygen Saturation 95% 02/28/2024 3:40 PM SCHOOL BUSINESS MANAGER Inhaled Oxygen Concentration - - Weight 65.2 kg (143 lb 11.2 oz) 02/28/2024 2:57 PM SCHOOL BUSINESS MANAGER Height 162 cm (5' 3.78) 10/31/2012 4:13 PM CDT Body Mass Index - - Plan of Treatment Health Maintenance Due Date Last Done Comments RSV vaccine - (32-36 weeks) or 60+ years (1 - 1-dose 75+ series) 2012 COVID-19 Vaccine (2 - season) 2023 06/18/2020 Depression Screening (Annual PHQ-2) 04/01/2024 Influenza Vaccine (#1) 2024 , 02/08/2022, 02/16/2021, Additional history exists DTaP,Tdap,and Td Vaccines (3 - Td or Tdap) 02/21/2032 02/20/2022, 08/28/2011, 07/19/2006, Additional history exists Pneumococcal vaccine (50+ years) Completed 11/16/2014, 08/04/2007 Zoster Vaccines Completed 12/15/2018, 10/14/2018 Fall Risk Screen (Annual) Completed 06/11/2024 IPV Vaccines Aged Out No longer eligi ble based on patient's age to complete this topic Insurance [facility] MEDICARE Care Teams Head Sawyer Relationship Specialty Start Date End Date None Reported, Pcp PCP - General Family Medicine 02/28/24
--- OUTSIDE RECORDS SUMMARY | 2024-11-06 15:07 | XMS_ITS | Clinical Summary ---
Author Organization [employer] [facility] & [facility] Address [address] [place] [id number] Care Team Providers Care Pig Machine Operator Name Role Phone Brian Garay MD Primary Care Provider [phone] [facility] [place] Unavailable [phone] Allergies Active Allergy Reactions Criticality Noted Date [...] 12/05/19 23 Active glipiZIDE (GLUCOTROL) 10 mg tabletIndication s:Diabetes mellitus without complication (HC) Take 1 Tablet (10 mg) by mouth two times daily before meals. Resume Wednesday 11/15 as prescribed 11/15/19 24 Active pioglitazone (ACTOS) 15 mg tabletIndication s:Diabetes mellitus without complication (HC) Take 1 Tablet (15 mg) by mouth once daily. Resume Wednesday 11/15 as prescribed 11/15/19 24 Active metFORMIN (GLUCOPHAGE) 1,000 mg tabletIndication s:Diabetes mellitus without complication (HC) Take 1 Tablet (1,000 mg) by mouth two times daily with meals. Resume Friday 11/17 as prescribed 11/15/19 24 Active acetaminophen (TYLENOL) 325 mg tabletIndication s:S/P AVR,S/P CABG x 3 Take 1-2 Tablets (325-650 mg) by mouth every 6 hours if needed for Headache or Pain. Max acetaminophen dose: 4000mg in 24 hrs. 01/10/20 24 Active furosemide (LASIX) 20 mg tabletIndication s:S/P AVR,S/P CABG x 3 Take 1 Tablet (20 mg) by mouth once daily in the morning. 30 Tablet 01/11/2024 11:01 AM CDT 01/12/20 24 Active potassium chloride (K-TAB) 10 mEq extended-release tabletIndication s:S/P AVR,S/P CABG x 3 Take 1 Tablet (10 mEq) by mouth once daily with a meal. 30 Tablet 01/11/2024 11:01 AM CDT 01/12/20 24 Active Additional Information Patient taking differently: 40 mEqOral DAILY WITH MEAL, Reported on 09/11/2024 atorvastatin (LIPITOR) 20 mg tabletIndication s:Atherosclerosi s of coronary artery, unspecified vessel or lesion type, unspecified whether angina present, unspecified whether assiniboine and sioux or transplanted heart,S/P CABG x 3 Take 4 Tablets (80 mg) by mouth once daily. 06/03/19 25 Active irbesartan (AVAPRO) 150 mg tablet Take 0.5 Tablets (75 mg) by mouth once daily. 06/03/19 25 Active warfarin (COUMADIN) 2 mg tablet 04/23/19 25 Active metoprolol succinate 25 mg Sustained-Releas e tabletIndication s:Paroxysmal A-fib (HC) Take 1 Tablet (25 mg) by mouth once daily. 07/02/19 25 Active hydrALAZINE 10 mg tablet Take 10 mg by mouth. PRN for high BP 08/21/19 25 Active hydroCHLOROthiaz clarke 25 mg tablet Take 25 mg by mouth once daily. PRN for high BP 12/04/19 24 Active Active Problems Problem Noted Date Diagnosed Date S/P AVR 01/02/2024 Overview (01/02/2024): 01/01/2024 s/p Aortic valve replacement with Hbyyscco52 mm tissue valve S/P CABG x 3 01/02/2024 Overview (01/02/2024): 01/01/2024 s/p Coronary artery bypass grafting x3 (LUGO -> LAD, SVG -> PDA, SVG - > OM1) Shock circulatory 01/02/2024 Severe aortic stenosis 2023 COLLAZO (dyspnea on exertion) 2023 Moderate mitral regurgitation 2023 Coronary atherosclerosis of unspecified type of vessel, assiniboine and sioux or graft 06/15/2005 Overview (06/15/2005): s/p NARESH [...] Encounters Date Type Department Care Team Description 09/14/2024 Telephone [facility] [address] [place] [address] Dheeraj Sanford MD Follow Up 09/11/2024 11:00 AM CDT Office Visit [facility] [address] [facility] [address] [place], [place] [id number] Gina Jiménez MD Follow Up (HALLIE PER /MRI PRIOR: CBC, BMP received from [facility], sent to scan 08/21 /) 09/11/2024 Travel 08/21/2024 3:30 PM CDT - 08/21/2024 11:59 PM CDT Hospital Encounter [facility] [address] [place] [address] iGna Jiménez MD Other heart failure (HC) 08/21/2024 Travel 08/20/2024 1:00 PM CDT Office Visit [facility] [address] [place] [address] Gina Jiménez MD 08/20/2024 Orders Only [facility] Scanner 1 scan: (1-Ord) [facility], MULTIPLE LAB RESULTS, 08/20/2024 08/20/2024 Telephone [employer] [facility] [address] [place] [address] Gina Jiménez MD Follow Up; Results (CBC, BMP) from Last 3 Months Immunizations Immunization Administration [...] on file Legal Sex Female 6:12 AM FISHING MANAGER Gender Identity Not on file Sexual Orientation Not on file Obstetrics History Last Filed Vital Signs Vital Sign Reading Time Taken Comments Blood Pressure 136/70 09/11/2024 11:02 AM CDT Pulse 71 09/11/2024 11:02 AM CDT Temperature 36.1 C (97 F) 02/10/2024 8:19 AM FISHING MANAGER Respiratory Rate 16 02/10/2024 8:19 AM FISHING MANAGER Oxygen Saturation 98% 09/11/2024 11:02 AM CDT Inhaled Oxygen Concentration - - Weight 61.2 kg (135 lb) 09/11/2024 11:02 AM CDT Height 162.6 cm (5' 4) 09/11/2024 11:02 AM CDT Body Mass Index 23.17 09/11/2024 11:02 AM CDT Plan of Treatment Upcoming Encounters Date Type Department Care Team (Late st Contact Info) Description 01/12/2025 1:30 PM CDT Office Visit [facility] [place] [address] [facility] [address] [place] [address] Gina Jiménez MD [address] [facility] [address] [place] [address] Health Maintenance Due Date Last Done Comments Depression screening for age 12+ 1947 DEXA/DXA scan for age 65+ 2002 Medicare Wellness for age 65+ 2002 RSV vaccine for adults or (1 - 1-dose 75+ series) 2012 COVID-19 vaccine series (2 - season) 2023 06/18/2020 Influenza Vaccine (#1) 2024 , 01/09/2019, 01/17/2018, Additional history exists BMI (ht and wt on same day) for age 18+ 09/11/2025 09/11/2024, 06/02/2024, 02/12/2024 Tetanus booster 02/21/2032 02/20/2022, 07/31, 07/19/2006, Additional history exists Pneumococcal series for age 50+ Completed 11/16/2014, 08/04/2007 Zoster (shingles) series for age 50+ Completed 12/15/2018, 10/14/2018 Hepatitis B series for 19+ Aged Out N o longer eligible based on patient's age to complete this topic Medical Devices Implanted Type Area Court Reporter Device Identifier Shelf Expiration Date Model / Serial / Lot Valve Aortic 19mm Insp[employer] Resilia Tissue - [id number] Implanted:Qty: 1 on 01/01/2024 by Dahiana Ventura MD at [facility] N/A: Aortic Valve [employer] [id number] 11/12/2026 [id number] / [id number] / Description:No rinse per man ufacturer's instructions. Procedures Procedure Name Priority Date/Time Associated Diagnosis Comments MR CARDIAC WWO Routine 08/21/2024 5:02 PM CDT Other heart failure (HC) ISTAT CHEM 8 Routine 08/21/2024 3:49 PM CDT SCAN-LABORATORY REPORT 08/20/2024 12:00 AM CDT from Last 3 Months Results * MR CARDIAC WWO (08/21/2024 5:02 PM CDT) Anatomical Region Laterality Modality HEART, THORAX Magnetic Resonan ce 08/21/2024 4:00 PM CDT Narrative 08/21/2024 4:55 PM CDT [facility] CMR Report Name: AMBIKA CLARK : Scan Date: Accession Number: [id number] Status: Final Electronically signed by Cornel Martin 16:55:09 VITALS ===== HEIGHT: 64 in (163 cm) WEIGHT: 138 lbs (63 kgs) BSA: 1.67 m^2 FINAL IMPRESSION ===== 1. No CMR evidence of cardiac amyloidosis. 2. Normal LV volume. Preserved LV systolic function. Quantitative LVEF 68 %. 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 3. Normal RV volume. Preserved RV systolic function. Quantitative RVEF 62 %. 4. Enlarged mediastinal nodes. SUMMARY ===== LEFT VENTRICLE: Normal LV volume. Preserved LV systolic function. Quantitative LVEF 68 %. VIABILITY: LV scar size is 6 %. RIGHT VENTRICLE: Normal RV volume. Preserved RV systolic function. Quantitative RVEF 62 %. PERICARDIUM: There is no pericardial effusion. PLEURAL EFFUSION: Trace left and right pleural effusion. Enlarged mediastinal nodes visualized. AORTIC VALVE: 19 mm Inspiris bioprosthesis. MITRAL VALVE: Mitral valve is mildly thickened. Mitral insufficiency present. TRICUSPID VALVE: Normal mobility. Tricuspid insufficiency present. OTHER FINDINGS: High TI imaging: No microvascular obstruction or ventricular thrombus. T1 mapping: ECV is mildly elevated, 30%. No CMR evidence of cardiac amyloidosis. T2 mapping: No convincing evidence of myocardial edema. Delayed enhancement imaging: There is a mix of transmural to nontransmural infarction involving the basal inferolateral wall. CORE EXAM ===== MEASUREMENTS ----- --- VOLUMETRIC ANALYSIS . . LV Reference RV Reference +------+--------+-----+ +-----+ + EDV ml 130 146 ml/m^2 78 87 ESV ml 42 56 ml/m^2 25 34 CO MASS g 107 g/m^2 64 SV ml 88 90 ml/m^2 53 54 EF % 68 62 '------+--------+-----+ +-----+ ' EXTRACELLULAR VOLUME MEASUREMENT PRE-CONTRAST T1 MYOCARDIUM: 1043 msec ECV: 30 % 17 SEGMENT ----- --- . ----- -----. Segments Wall Motion Hyperenhancement Stress Perfusion Interpretation + + + + +------ ----- -----+ Base Anterior Base Anteroseptal Base Inferoseptal Base Inferior Base Inferolateral 51-75% Base Anterolateral Mid Anterior Mid Anteroseptal Mid Inferoseptal Mid Inferior Mid Inferolateral 26-50% Mid Anterolateral Apical Anterior Apical Septal Apical Inferior Apical Lateral Molino + + + + +------ ----- -----+ RV Segments Wall Motion Hyperenhancement Interpretation + + + + +------ ----- -----+ RV Basal Anterior RV Basal Inferior RV Mid RV Apical ' + + + +------ ----- -----' FINDINGS LV SCAR SIZE (17 SEGMENT): 6 % SCAN INFO ===== GENERAL ----- --- SCANNER AUTOMOTIVE SALES ASSOCIATE: [employer] MODEL: Aera CONTRAST AGENT TYPE: [employer] GD CONCENTRATION: 1.0 M SETUP REFERRING PHYSICIAN: GINA JIMÉNEZ ATTENDING PHYSICIAN: GINA JIMÉNEZ BILLING ===== Patient Account [id number] ICD10 Codes I50.89 Report generated by [employer], a product of [employer] Procedure Note Cornel Martin MD - 08/21/[address] [facility] CMR Report Name: AMBIKA CLARK : Scan Date: Accession Number: [id number] Status: Final Electronically signed by Cornel Martin 16:55:09 VITALS ===== HEIGHT: 64 in (163 cm) WEIGHT: 138 lbs (63 kgs) BSA: 1.67 m^2 FINAL IMPRESSION ===== 1. No CMR evidence of cardiac amyloidosis. 2. Normal LV volume. Preserved LV systolic function. Quantitative LVEF68 %. 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 3. Normal RV volume. Preserved RV systolic function.Quantitative RVEF62 %. 4. Enlarged mediastinal nodes. SUMMARY ===== LEFT VENTRICLE: Normal LV volume. Preserved LV systolic function.Quantitative LVEF 68 %. VIABILITY: LV scar size is 6 %. RIGHT VENTRICLE: Normal RV volume. Preserved RV systolic function.Quantitative RVEF 62 %. PERICARDIUM: There is no pericardial effusion. PLEURAL EFFUSION: Trace left and right pleural effusion.Enlargedmediastinal nodes visualized. AORTIC VALVE: 19 mm Inspiris bioprosthesis. MITRAL VALVE: Mitral valve is mildly thickened. Mitral insufficiencypresent. TRICUSPID VALVE: Normal mobility. Tricuspid insufficiency present. OTHER FINDINGS: High TI imaging: No microvascular obstruction orventricular thrombus. T1 mapping: ECV is mildly elevated, 30%. No CMR evidence of cardiacamyloidosis. T2 mapping: No convincing evidence of myocardial edema. Delayed enhancement imaging: There is a mix of transmural to nontransmuralinfarction involving the basal inferolateral wall. CORE EXAM ===== MEASUREMENTS ----- --- VOLUMETRIC ANALYSIS . . LV Reference RV Reference +------+--------+-----+ +-----+ + EDV ml 130 146 ml/m^2 78 87 ESV ml 42 56 ml/m^2 25 34 CO MASS g 107 g/m^2 64 SV ml 88 90 ml/m^2 53 54 EF % 68 62 '------+--------+-----+ +-----+ ' EXTRACELLULAR VOLUME MEASUREMENT PRE-CONTRAST T1 MYOCARDIUM: 1043 msec ECV: 30 % 17 SEGMENT ----- --- . ----- -----. Segments Wall Motion Hyperenhancement Stress Perfusion Interpretation + + + + +------ ----- -----+ Base Anterior Base Anteroseptal Base Inferoseptal Base Inferior Base Inferolateral 51-75% Base Anterolateral Mid Anterior Mid Anteroseptal Mid Inferoseptal Mid Inferior Mid Inferolateral 26-50% Mid Anterolateral Apical Anterior Apical Septal Apical Inferior Apical Lateral Molino + + + + +------ ----- -----+ RV Segments Wall Motion Hyperenhancement Interpretation + + + + +------ ----- -----+ RV Basal Anterior RV Basal Inferior RV Mid RV Apical ' + + + +------ ----- -----' FINDINGS LV SCAR SIZE (17 SEGMENT): 6 % SCAN INFO ===== GENERAL ----- --- SCANNER AUTOMOT[employer] SALES ASSOCIATE: [employer] MODEL: Aera CONTRAST AGENT TYPE: [employer]ist GD CONCENTRATION: 1.0 M SETUP REFERRING PHYSICIAN: GINA JIMÉNEZ ATTENDING PHYSICIAN: GINA JIMÉNEZ [place]ILL[place]URA ===== Patient Account [id number] ICD10 Codes I50.89 Report generated by [employer], a product of [employer] Gina Jiménez MD MR Final Result * (ABNORMAL) ISTAT CHEM 8 (08/21/2024 3:49 PM CDT) [facility] SODIUM, POCT 08/25/2024 9:22 AM CDT [facility] Comment:Unable to determine. POTASSIUM, POCT 9:22 AM CDT [facility] Comment:Unable to determine. CHLORIDE, POCT 08/25/2024 9:22 AM CDT [facility] Comment:Unable to determine. CO2,TOTAL, POCT 9:22 AM T [facility] Comment:Unable to determine. ANION GAP, POCT 9:22 AM CDT [facility] Comment:Unable to calculate. GLUCOSE, POCT 08/25/2024 9:22 AM CDT [facility] Comment:Unable to determine. IONIZED CALCIUM, POCT 08/25/2024 9:22 AM CDT [facility] Comment:Unable to determine. BUN, POCT 08/25/2024 9:22 AM CDT [facility] Comment:Unable to determine. CREATININE, POCT 08/26/19 9:22 AM CDT [facility] Comment: Unable to determine. Caution: Patients taking Hydroxyurea have falsely increased iStat Creatinine results. Verify creatinine results ordering a Creatinine (93638.2) BUN/CREAT RATIO, POCT 08/25/2024 9:22 AM CDT [facility] Comment:Unable to calculate. eGFR 08/25/2024 9:22 AM CDT [facility] Comment:Unable to calculate. HEMATOCRIT, POCT 33.0 33.0 - 51.0 % 08/25/2024 9:22 AM CDT [facility] HEMOGLOBIN, POCT 11.2(L) 12.0 - 16.0 g/dL 08/25/2024 9:22 AM CDT [facility] Blood BLOOD SPECIMEN / Unknown 08/21/2024 3:49 PM CDT 08/25/2024 9:22 AM CDT [facility] Terell Jiménez MD CHEMISTRY Final Result [facility] [address] [place] [address], [place] * SCAN-LABORATORY REPORT (08/20/2024 12:00 AM CDT) us Scanner OTHER Final Result from Last 3 Months Insurance MEDICARE PART A HB ONLY [place] BLUE MR PB ONLY MEDICARE PART B HB ONLY [place] [id number] [employer] PPS Advance Directives * Full Code [...] 9:05 AM 06/14/2005 11:46 AM Care Teams Pig Machine Operator Relationship Specialty Start Date End Date Brian Garay MD PCP - General 08/19/08 [facility] [address] [address] 01/11/24
--- NOTE | 2024-11-06 15:54 | ED.ABDPAIN ---
HPI - Abdominal Pain General Time Seen by Provider: 15:54 Date Seen: 11/06/24 Chief Complaint: Abdominal Pain Stated Complaint: UTI, not feeling well since Saturday Time Seen by Provider: 11/06/24 15:54 Source: patient, RN notes reviewed and old records reviewed Mode of arrival: ambulatory Limitations: no limitations History of Present Illness HPI narrative: 88-year-old female who comes in today with flank pain, chills. Patient seen earlier today at Urgent Care, had labs done there which showed elevated white blood cell count, creatinine was 1.7 up from patient's baseline of 0.8. Patient reports started feel poorly 4 days ago with some achiness in her right side and chills overnight, felt better for couple of days and then starting yesterday and today increased fatigue, chills, occasional pain with urination, decreased appetite, sleeping a lot. Did not record fever at home. Has not been eating and drinking well. The pain in the right side is resolved. She denies chest pain, cough, does have a little bit shortness of breath. Related Data Home Medications ?Medication ?Instructions ?Recorded ?Confirmed blood glucose control, normal 11/29/21 11/06/24 (Accu-Chek SmartView Control Solution) lancets (Accu-Chek Fastclix Lancet 11/29/21 11/06/24 Yissel) nitroglycerin 0.4 mg sublingual 0.4 mg sublingual ONCE PRN 01/29/24 11/06/24 tablet (Nitrostat) irbesartan 75 mg tablet mg PO DAILY 05/06/24 11/06/24 Lactobacillus cap PO BID 06/24/24 11/06/24 no.51-Bifidobacterium no.4 50 billion cell capsule (up4 Probiotics Ultra) atorvastatin 80 mg tablet 80 mg PO DAILY 07/15/24 11/06/24 alendronate 70 mg tablet 70 mg PO QWEEK 09/16/24 11/06/24 Previous Rx's ?Medication ?Instructions ?Recorded blood sugar diagnostic (Accu-Chek #100 strips 11/09/22 SmartView Test Strips) glipizide 10 mg tablet 10 mg PO BID #180 tabs 01/17/24 pioglitazone 15 mg tablet 15 mg PO QDAY #90 tabs 01/17/24 sertraline 100 mg tablet 100 mg PO QDAY #90 tabs 01/17/24 warfarin 2 mg tablet See Rx Instructions PO QDAY #100 06/09/24 tabs levothyroxine 88 mcg tablet 88 mcg PO QDAY #90 tabs 07/15/24 furosemide 20 mg tablet 20 mg PO QDAY #90 tabs 07/31/24 metformin 1,000 mg tablet 1,000 mg PO BID #180 tabs 09/11/24 cyanocobalamin (vitamin B-12) 1,000 mcg PO .3 tanvir a week #90 09/16/24 1,000 mcg tablet (Vitamin B-12) tabs potassium chloride 10 mEq 40 meq (4 x 10 mEq) PO QDAY #360 09/23/24 capsule,extended release caps hydrochlorothiazide 25 mg tablet 25 mg PO QDAY #90 tabs 09/24/24 metoprolol succinate 25 mg 25 mg PO QDAY #90 tabs 10/06/24 tablet,extended release 24 hr hydralazine 10 mg tablet 10 mg PO BID #180 tabs 10/27/24 metformin 500 mg tablet,extended 1,000 mg (2 x 500 mg) PO BID #180 10/30/24 release 24 hr tabs Allergies Allergy/AdvReac Type Severity Reaction Status Date / Time penicillin V Allergy Mild Hands and Verified 11/06/24 15:15 feet itchy,red PFSH PFSH Medical History (Updated 11/06/24 @ 16:49 by Eddi Mccormick MD) Type 2 diabetes mellitus ?E11.9 - Type 2 diabetes mellitus without complications (ICD-10) Diarrhea ?R19.7 - Diarrhea, unspecified (ICD-10) ASCVD (arteriosclerotic cardiovascular disease) (~2005) ?I25.10 - Atherosclerotic heart disease of [place] coronary artery without angina pectoris (ICD-10) Hypertension ?I10 - Essential (primary) hypertension (ICD-10) Hyperlipidemia (08/16/09) ?E78.5 - Hyperlipidemia, unspecified (ICD-10) Hypothyroidism ?E03.9 - Hypothyroidism, unspecified (ICD-10) History of atrial fibrillation ?Z86.79 - Personal history of other diseases of the circulatory system (ICD-10) Asthma (08/16/09) ?J45.909 - Unspecified asthma, uncomplicated (ICD-10) Anxiety ?F41.9 - Anxiety disorder, unspecified (ICD-10) Osteoporosis ?M81.0 - Age-related osteoporosis without current pathological fracture (ICD-10) Thoracic compression fracture ?S22.000A - Wedge compression fracture of unspecified thoracic vertebra, initial encounter for closed fracture (ICD-10) Stress incontinence ?N39.3 - Stress incontinence (female) (male) (ICD-10) Diverticulosis (05/27/12) ?K57.90 - Diverticulosis of intestine, part unspecified, without perforation or abscess without bleeding (ICD-10) Adenomatous polyp of colon ?D12.6 - Benign neoplasm of colon, unspecified (ICD-10) Aortic stenosis ?I35.0 - Nonrheumatic aortic (valve) stenosis (ICD-10) Trochanteric bursitis ?M70.60 - Trochanteric bursitis, unspecified hip (ICD-10) Mass of right kidney ?N28.89 - Other specified disorders of kidney and ureter (ICD-10) Osteopenia (12/22/12) ?M85.80 - Other specified disorders of bone density and structure, unspecified site (ICD-10) Back pain ?M54.9 - Dorsalgia, unspecified (ICD-10) Fracture, humerus ?S42.309A - Unspecified fracture of shaft of humerus, unspecified arm, initial encounter for closed fracture (ICD-10) Surgical History Status post aortic valve replacement (12/2023) ?Z95.2 - Presence of prosthetic heart valve (ICD-10) 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) ?Z95.1 - Presence of aortocoronary bypass graft (ICD-10) Status post nasal surgery (08/16/09) ?Z98.890 - Other specified postprocedural states (ICD-10) Status post cataract extraction ?Z98.49 - Cataract extraction status, unspecified eye (ICD-10) Status post appendectomy (08/16/09) ?Z90.49 - Acquired absence of other specified parts of digestive tract (ICD-10) History of coronary artery stent placement (08/16/09) ?Z95.5 - Presence of coronary angioplasty implant and graft (ICD-10) History of colonoscopy ?Z98.890 - Other specified postprocedural states (ICD-10) Family History Sister Colon cancer, Onset Age: 84 Coronary artery disease Father Myocardial infarction, Onset Age: 51 Brother Myocardial infarction, Onset Age: 51 Mother Stroke, Onset Age: 97 Maternal Grandfather Diabetes Aunt Diabetes Social History Narrative: , lives alone on farm in [place], 6 living children No regular exercise but physically active Never smoker Does not drink alcohol What is your current living situation?: I presently have a place to live Problems where you live: no known problems In the past 12 months, utilities in danger of being shut off: no In past 12 months, lack of transportation kept you from medical appts, meetings, work, or getting things needed for daily living: no In the past 12 mos, have been you worried that your food would run out before you had money to buy more?: never true In the past 12 mos, the food you bought just didn't last and you didn't have money to buy more?: never true Smoking Status: Never smoker Do you use any of these nicotine containing products: None Second hand tobacco smoke exposure: No How often do you have a drink containing alcohol: never How often do you have six or more drinks on one occasion: Never AUDIT-C Alcohol total score: 0 Non-prescribed substance use: denies use How often does anyone, including family, friends and others, physically hurt you: never How often does anyone, including family, friends and others, insult or talk down to you: never How often does anyone, including family, friends and others, threaten you with harm: never How often does anyone, including family, friends and others, scream or curse at you: never service: No Exam Narrative: Exam Narrative: General: Well-developed and well-nourished, no acute distress Head: Atraumatic and normocephalic Eyes: Pupils are equal reactive, extraocular motions intact, conjunctiva clear ENT: External nose and ears are normal, posterior pharynx without erythema or exudate Neck: No midline cervical tenderness, full spontaneous range of motion the neck, trachea midline, no adenopathy Heart: Regular rate and rhythm no murmurs or thrills Lungs: Trace crackles on left Abdomen: Soft, nontender, nondistended with active bowel sounds, no CVA tenderness Musculoskeletal: No tenderness, deformity, or edema Neurologic: Awake, alert, and oriented x3, no gross focal neurologic deficits, cranial nerves intact as tested Psych: Mood and affect are appropriate Skin: No rashes Const: Vital Signs, click to edit/add: Vital Signs - 24 hr 11/06/24 15:10 11/06/24 18:01 11/06/24 18:02 Temperature 97.8 F Pulse Rate 73 72 Pulse Rate [Right Pulse Oximeter] 65 Respiratory Rate 18 Blood Pressure 153/63 H 148/66 H Blood Pressure [Ri ght Upper Arm] 97/49 L Pulse Oximetry 98 94 95 Oxygen Delivery Me thod Room Air 11/06/24 18:03 11/06/24 18:05 Temperature Pulse Rate 72 Pulse Rate [Right Pulse Oximeter] 74 Respiratory Rate 20 Blood Pressure Blood Pressure [Ri ght Upper Arm] 153/63 H Pulse Oximetry 95 95 Oxygen Delivery Me thod Room Air Course Course ED Course: Reviewed visit from earlier today at urgent care when patient was seen with flank pain, found to have hematuria and elevated creatinine. Review of chart shows history CABG December 2023, also prior aortic valve replacement at that time. Patient presents today with intermittent chills, fatigue which is been intermittent for couple of days but more consistent since yesterday. Occasional dysuria, did have some right-sided abdominal pain 4 days ago but nothing since. No nausea vomiting, poor appetite. On exam here, patient is hypotensive, not tachycardic, afebrile, no CVA tenderness or abdominal tenderness, crackles in the left lung. Outside labs with elevated creatinine as well as elevated white blood cell count. Given fatigue, chills, and lab findings of elevated white blood cell count, infectious etiology suspected. Patient does have hematuria, urine is nitrite positive and moderate white blood cell clumps. Most likely this does represent a urinary tract infection but concern for possible kidney stone as well, also with crackles on lung exam pneumonia remains in the differential. If patient has an infected kidney stone, this obviously would require urgent evaluation and treatment. Patient will be started on Rocephin for possible urinary tract infection versus pneumonia pending imaging. Reevaluation(s) Time of Reevaluation #1: 16:38 Reevaluation #1: CT scan of the chest independently interpreted by me with trace atelectasis but no acute infiltrate. CT scan of the abdomen and pelvis independently interpreted by me without acute aortic pathology, nonobstructing stone in the left renal pelvis, nonobstructing stone in the right renal pelvis as well as obstructing stone in the proximal ureter measuring about 5 mm. Given hypotension and altered kidney function, anticipate transfer. Updated patient with findings and plan, she can have clear liquids until transfer plans are arranged. Patient also noted to have hypo magnesemia, this will be replaced intravenously. Time of Reevaluation #2: 17:45 Reevaluation #2: Care discussed with Dr. Gant, [facility] hospitalist who accepts patient for transfer. Time of Reevaluation #3: 18:38 Reevaluation #3: Blood pressure improved to 153/63 after fluid bolus and oral fluid intake. Discussed transfer, she would like family to drive her and she is finally stable, I think this is reasonable. Vital Signs Vital signs: Initial Vital Signs Temperature 97.8 F 11/06/24 15:10 Temperature Source Temporal Artery Scan 11/06/24 15:10 Pulse Rate 65 11/06/24 15:10 Pulse Rhythm Regular 11/06/24 15:10 Pulse Strength 3+ Normal 11/06/24 15:10 Respiratory Rate 18 11/06/24 15:10 Blood Pressure 97/49 L 11/06/24 15:10 Blood Pressure Mean 65 L 11/06/24 15:10 Blood Pressure Position Sitting 11/06/24 15:10 Pulse Oximetry 98 11/06/24 15:10 Oxygen Delivery Method Room Air 11/06/24 15:10 Vital Signs Temperature 97.8 F 11/06/24 15:10 Pulse Rate 65 11/06/24 15:10 Respiratory Rate 18 11/06/24 15:10 Blood Pressure 97/49 L 11/06/24 15:10 Pulse Oximetry 98 11/06/24 15:10 Oxygen Delivery Method Room Air 11/06/24 15:10 Temperature 97.8 F 11/06/24 15:10 Pulse Rate 74 11/06/24 18:05 Respiratory Rate 20 11/06/24 18:05 Blood Pressure 153/63 H 11/06/24 18:05 Pulse Oximetry 95 11/06/24 18:05 Oxygen Delivery Method Room Air 11/06/24 18:05 Medications Administered Medications: Generic Name Dose Route Start Last Admin Trade Name Nubia PRN Reason Stop Dose Admin Sodium Chloride 1,000 mls @ 500 mls/hr 11/06/24 18:00 11/06/24 18:35 0.9 % Sodium Chloride 1000 Ml IV 11/06/24 19:59 Not Given .Q2H SARIKA Discontinued Medications Generic Name Dose Route Start Last Admin Trade Name Nubia PRN Reason Stop Dose Admin Sodium Chloride 1,000 mls @ 1,000 mls/hr 11/06/24 16:00 11/06/24 17:21 0.9 % Sodium Chloride 1000 Ml IV 11/06/24 16:59 Infused .Q1H SARIKA Infusion Ceftriaxone Sodium 1 gm/ 100 mls @ 200 mls/hr 11/06/24 16:13 11/06/24 17:21 Sodium Chloride IVPB 11/06/24 16:14 Infused ONCE ONE Infusion Magnesium Sulfate/Dextrose 1 gm in 100 mls @ 100 mls/hr 11/06/24 16:47 11/06/24 17:17 Magnesium Sulf 1 G/100 Ml IVPB 11/06/24 17:46 100 mls/hr ONCE ONE Administration Potassium Bicarbonate 25 meq 11/06/24 16:12 11/06/24 16:35 Potassium Bicarb 25 Meq Effervescent Tab PO 11/06/24 16:13 25 meq ONCE ONE Administration MDM - Abdominal Pain Lab Data Labs: Lab Results 11/06/24 Range/Units 16:10 INR 1.91 H (0.91-1.10) Lactate 1.7 (0.5-1.9) mmol/L Magnesium 1.4 L (1.5-2.6) mg/dL Total Bilirubin 0.5 (0.1-1.5) mg/dL Direct Bilirubin 0.3 (0.0-0.5) mg/dL AST 42 H (12-35) U/L ALT 24 (4-35) U/L Alkaline Phosphatase 72 (40-150) U/L Total Protein 7.4 (6.0-8.3) g/dL Albumin 3.8 (3.3-5.0) g/dL Lipase 55 (23-300) U/L Discharge Plan Discharge Clinical Impression: MARY (acute kidney injury), Acute UTI, Hypokalemia, Hypomagnesemia Patient Disposition: [facility] C[facility] Prescriptions: No Action nitroglycerin [Nitrostat] 0.4 mg tablet, sublingual 0.4 mg sublingual ONCE PRN Rx Instructions: as a single dose; administer 5-10 minutes before situation known to precipitate angina attack irbesartan 75 mg tablet PO DAILY alendronate 70 mg tablet 70 mg PO QWEEK cyanocobalamin (vitamin B-12) [Vitamin B-12] 1,000 mcg tablet 1,000 mcg PO .3 tanvir a week Qty: 90 1RF Rx Instructions: Take 1 tablet 3 times a week for low B12 pioglitazone 15 mg tablet 15 mg PO QDAY Qty: 90 3RF glipizide 10 mg tablet 10 mg PO BID Qty: 180 3RF sertraline 100 mg tablet 100 mg PO QDAY Qty: 90 3RF up4 Probiotics Ultra 50 billion cell capsule PO BID atorvastatin 80 mg tablet 80 mg PO DAILY levothyroxine 88 mcg tablet 88 mcg PO QDAY Qty: 90 3RF (DME) blood glucose control, normal [Accu-Chek SmartView Contrl Dolores] Solution See Rx Instructions .Route Rx Instructions: As directed (DME) lancets [Accu-Chek Fastclix Lancet Drum] Misc See Rx Instructions .Route Rx Instructions: As directed (DME) Accu-Chek SmartView Test Strip Strip See Rx Instructions .ROUTE .COMPLEX Qty: 100 3RF Dose Instruction: TEST BLOOD SUGAR EVERY DAY (DUE FOR RECHECK IN CLINIC IN . PLAN FASTING LABS) Rx Instructions: TEST BLOOD SUGAR EVERY DAY (DUE FOR RECHECK IN CLINIC IN . PLAN FASTING LABS) warfarin 2 mg tablet See Rx Instructions PO QDAY Qty: 100 3RF Protocol: Dose Management Condition: Saturday Dose/Route: 3 mg Instruction: 1.5 x 2 mg tablets Condition: Saturday Dose/Route: 3 mg Instruction: 1.5 x 2 mg tablets Condition: Saturday Dose/Route: 4 mg Instruction: 2 x 2 mg tablets Condition: Saturday Dose/Route: 3 mg Instruction: 1.5 x 2 mg tablets Condition: Dose/Route: 4 mg Instruction: 2 x 2 mg tablets Condition: Saturday Dose/Route: 3 mg Instruction: 1.5 x 2 mg tablets Condition: Saturday Dose/Route: 3 mg Instruction: 1.5 x 2 mg tablets Protocol Text: Adjustment Start Date: 10/29/24 INR Value: 1.4 INR Date: 10/26/24 Recheck Date: 11/05/24 Rx Instructions: 2 mg Q Sat and , and 3 mg Q --- orally every day; furosemide 20 mg tablet 20 mg PO QDAY Qty: 90 0RF metformin 1,000 mg tablet 1,000 mg PO BID Qty: 180 0RF potassium chloride 10 mEq capsule, extended release 40 meq PO QDAY Qty: 360 1RF hydrochlorothiazide 25 mg tablet 25 mg PO QDAY Qty: 90 1RF metoprolol succinate 25 mg tablet extended release 24 hr 25 mg PO QDAY Qty: 90 3RF hydralazine 10 mg tablet 10 mg PO BID Qty: 180 3RF metformin 500 mg tablet extended release 24 hr 1,000 mg PO BID Qty: 180 1RF Stand Alone Forms: [facility] Info Instructions
--- NOTE | 2024-11-06 15:56 | CRLHL7_ITS ---
For Patients: As a result of the Century Cures Act, medical imaging exams and procedure reports are released immediately into your electronic medical record. You may view this report before your referring provider. If you have questions, please contact your health care provider. Indication: Flank pain, hematuria, acute kidney injury Technique: Noncontrast CT of the chest, abdomen, and pelvis with multiplanar reformats. Comparison: CT abdomen and pelvis performed 05/21/2024 Findings: Chest: Lungs: No consolidation. No effusion. No pneumothorax. Few scattered pulmonary nodules measure up to 2-3 millimeters, no dedicated follow-up recommended. Mild atelectasis and/or scarring. Mediastinum: Postoperative changes noted. No acute abnormality appreciated. Cardiomegaly. Calcified atherosclerosis. Lymph nodes: No gross lymphadenopathy. Soft tissues: No acute abnormality appreciated. Bones: No acute abnormality appreciated. Degenerative changes of the spine and shoulders. Chronic severe T12 compression fracture. Median sternotomy wires. Abdomen and Pelvis: Hepatobiliary: No significant parenchymal abnormality is appreciated. Question layering stones or sludge within an otherwise unremarkable gallbladder. Spleen: Unremarkable. Pancreas: No acute abnormality appreciated. Adrenal glands: No acute abnormality appreciated. Kidneys: There is a nonobstructing 5 millimeter right renal pelvis stone and an obstructing 7 millimeter right proximal ureteral stone with mild hydronephrosis. Densities on the left renal hilum favored to be arterial. Bowel: Few scattered diverticula. No obstruction. No focal perienteric or pericolonic stranding is appreciated. Vascular: Calcified atherosclerosis. Lymph nodes: No gross lymphadenopathy. Peritoneum: No free air. No free fluid. : No significant abnormality appreciated. Densities along the course of the distal left ureter appear to be present on prior study and are likely vascular. Soft tissues: No acute abnormality appreciated. Bones: No acute fracture. No lytic or blastic lesion. Degenerative changes of the spine and pelvis. Impression: 1. Obstructing 7 millimeter proximal right ureteral stone with mild hydronephrosis. 2. Additional nonobstructing 5 millimeter right renal pelvis stone. 3. Additional chronic findings as above. Please note that all CT scans at this facility use dose modulation, iterative reconstruction, and/or weight-based dosing when appropriate to reduce radiation dose to as low as reasonably achievable. Dictated by Amadeo Knight MD @ 11/06/2024 5:50:17 PM (Electronically Signed)
[2024-11-06 16:23] LABS: Lactate* 1.7 mmol/L (0.5-1.9)
[2024-11-06] MEDS: POTASSIUM BICARB 25 MEQ EFFERVESCENT TAB PO (16:35)
[2024-11-06] MEDS: cefTRIAXone 1 GM in 0.9 % SODIUM CHLORIDE Mini-bag 100 ML IVPB (16:35)
[2024-11-06 16:41] LABS: Albumin* 3.8 g/dL (3.3-5.0)
[2024-11-06 16:44] LABS: Alanine Aminotransferase* 24 U/L (4-35); Aspartate Amino Transferase* 42 U/L (12-35); Bilirubin Direct* 0.3 mg/dL (0.0-0.5); Bilirubin Total* 0.5 mg/dL (0.1-1.5); Total Protein* 7.4 g/dL (6.0-8.3)
[2024-11-06 16:45] LABS: Alkaline Phosphatase* 72 U/L (40-150); INR 1.91 (0.91-1.10); Prothrombin Time 23.0 Seconds
[2024-11-06] MEDS: MAGNESIUM SULF 1 G/100 ML 1 GM/100 ML PIGGYBACK IVPB (17:17)
== END 2024-11-06 18:38 | disposition short-term general hospital (02) ==
PROVIDERS: Emergency Provider Family Medicine; PCP Family Medicine
DX: N17.9 Acute kidney failure, unspecified (principal); N39.0 Urinary tract infection, site not specified; E87.6 Hypokalemia; E83.42 Hypomagnesemia; N20.0 Calculus of kidney; R10.9 Unspecified abdominal pain; R53.83 Other fatigue; R30.0 Dysuria
CPT/HCPCS: 36415; 71250; 74176; 80076; 83605; 83690; 83735; 85610; 96365; 96375; 99285; A9270; J0696; J3475; J7030

== ENCOUNTER 2024-11-19 15:51 | Outpatient (CLI) | payer MEDICARE, BC, SELFPAY | END 2024-11-19 15:52 | disposition home or self-care (01) | PROVIDERS: PCP Family Medicine; Visit Provider Family Medicine | DX: E83.42 Hypomagnesemia (principal); Z95.2 Presence of prosthetic heart valve; Z79.01 Long term (current) use of anticoagulants | CPT/HCPCS: 80053; 83735; 85610 ==

== ENCOUNTER 2024-12-04 14:56 | Outpatient (CLI) | payer MEDICARE, BC, SELFPAY | END 2024-12-04 14:57 | disposition home or self-care (01) | PROVIDERS: PCP Family Medicine; Visit Provider Family Medicine | DX: I10 Essential (primary) hypertension (principal); R79.0 Abnormal level of blood mineral | CPT/HCPCS: 80048; 83735 ==

== ENCOUNTER 2025-01-22 21:52 | Emergency (ER) | payer MEDICARE, BC, SELFPAY ==
--- OUTSIDE RECORDS SUMMARY | 2025-01-22 21:54 | XMS_ITS | Clinical Summary ---
Author Organization [facility] Address [address] [place] [address] Care Team Providers Care Farm Manager Name Role Phone [facility] Anya Wildwood Unavailable [phone] Keshia Schilling MD Primary Care Provider + Allergies Active Allergy Reactions Criticality Noted Date Comments Penicillins Itching 06/12/2005 Medications alendronate (FOSAMAX) 70 mg tablet Take 70 mg by mouth once a week in the morning. Mondays 3 Active sertraline (ZOLOFT) 100 mg tablet Take 100 mg by mouth once daily. 3 Active atorvastatin (LIPITOR) 80 mg tabletIndication s:Atherosclerosi s of coronary artery, unspecified vessel or lesion type, unspecified whether angina present, unspecified whether chitimacha or transplanted heart,S/P CABG x 3 Take 80 mg by mouth at bedtime. 5 Active warfarin (COUMADIN) 2 mg tablet 4 mg = TuTh 3 mg = SuMWFSa 5 Active metoprolol succinate 25 mg Sustained-Releas e tabletIndication s:Paroxysmal A-fib (HC) Take 1 Tablet (25 mg) by mouth once daily. 5 Active glipiZIDE (GLUCOTROL) 10 mg tablet Take 10 mg by mouth two times daily before meals. Active furosemide (Lasix) 20 mg tablet Take 40 mg by mouth once daily in the morning. Active hydrALAZINE (APRESOLINE) 25 mg tablet Take 25 mg by mouth two times daily. Active hydroCHLOROthiaz clarke 25 mg tablet Take 25 mg by mouth once daily. Active levothyroxine (SYNTHROID) 88 mcg tablet Take 88 mcg by mouth before breakfast. Active metFORMIN (GLUCOPHAGE XR) 500 mg Extended-Release tablet Take 1,000 mg by mouth two times daily with meals. Active pioglitazone (ACTOS) 15 mg tablet Take 15 mg by mouth once daily. Active potassium chloride (K-Tab) 10 mEq extended-release tablet Take 20 mEq by mouth two times daily with meals. Active irbesartan (AVAPRO) 75 mg tabletIndication s:Aortic valve stenosis, etiology of cardiac valve disease unspecified,Esse ntial hypertension TAKE 1 TABLET(75 MG) BY MOUTH DAILY 90 Tablet 1 Active cyanocobalamin (Vitamin B-12) 1,000 mcg tablet Take 1,000 mcg by mouth every Saturday, Saturday and Saturday. Active Lactobacillus acidophilus (PROBIOTIC ORAL) Take by mouth two times daily. Active traMADoL (ULTRAM) 50 mg tabletIndication s:Kidney stones Take 1 Tablet (50 mg) by mouth every 6 hours if needed for Pain. 10 Tablet Active Additional Information Patient not taking.Reason: See Comment, Reported on 01/12/2025 vits A,C,E/lutein/min erals (HEALTHY EYES ORAL) Take by mouth once daily. Active calcium carb,gluc-mag gluc,ox (Calcium Magnesium) 500 mg calcium- 250 mg tab Take by mouth once daily. Active cholecalciferol (Vitamin D-3) 2,000 unit capsule Take 2,000 units by mouth once daily. Active Active Problems Problem Noted Date Diagnosed Date Diabetes mellitus type 2, noninsulin dependent 0 11/06/2024 MARY (acute kidney injury) 11/06/2024 UTI (urinary tract infection) 11/06/2024 Ureterolithiasis 11/06/2024 S/P AVR 01/02/2024 Overview (01/02/2024): 01/01/2024 s/p Aortic valve replacement with [id number] mm tissue valve S/P CABG x 3 01/02/2024 Overview (01/02/2024): 01/01/2024 s/p Coronary artery bypass grafting x3 (LUGO -> LAD, SVG -> PDA, SVG - > OM1) Shock circulatory 01/02/2024 Severe aortic stenosis 2023 COLLAZO (dyspnea on exertion) 2023 Moderate mitral regurgitation 2023 Coronary atherosclerosis of unspecified type of vessel, chitimacha or graft 06/15/2005 Overview (06/15/2005): s/p NARESH LAD, s/p NARESH prox and mid RCA, s/p PTCA ostial PDA 06/14/05 Unspecified essential hypertension 06/15/2005 Other and unspecified hyperlipidemia 06/15/2005 Overview (06/15/2005): 06/12/05 Chol 193, TG 175, HDL 61, LDL 97 Homocysteine 8.1 06/14/05 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 HYPOTHYROIDISM , on supplement 06/15/2005 Unspecified asthma(493.90) 06/15/2005 Resolved Problems Problem Noted Date Diagnosed Date Resolved Date Type II or unspecified type diabetes mellitus without mention of complication, not stated as uncontrolled 06/15/2005 11/06/2024 Encounters Date Type Department Care Team Description 01/12/2025 1:30 PM CDT Office Visit [facility] [id number] [place] [address] [address] [place] [address] Gina Meléndez MD Follow Up (4 month follow up- echo not needed until 6 to 12 month follow up PT states feeling good, no cardiac symptoms today.Nothing to note today.) 01/12/2025 Travel 12/11/2024 10:25 AM CDT Anesthesia Event [place] [address] [place] [address] Gerry Shrestha MD 12/11/2024 9:45 AM CDT - 12/11/2024 10:50 AM CDT Surgery [address] [place] [address] Sudheer Menjivar MD Cystoscopy, Right Ureteroscopy, Thiulium Laser Lithotripsy 12/11/2024 8:14 AM CDT - 12/11/2024 12:05 PM CDT Hospital Encounter [facility] [address] [facility] [place] [address] Sudheer Menjivar MD Acute cystitis without hematuria (Primary Dx); Kidney stones Discharge Disposition: Home Self Care 12/11/2024 Travel 12/07/2024 Travel 11/14/2024 Refill [facility] [address] [facility] [address] [place] [address] Rylan Fabian MD Refill Request (Irbesartan) 11/07/2024 12:35 PM CDT Anesthesia Event [facility] [address] [place] [address] Marquita Mcclendon MD [facility] 11/07/2024 12:00 PM CDT - 11/07/2024 1:[address] [facility] [address] [place] [address] Sudheer Menjivar MD CYSTOSCOPY PLACEMENT RIGHT URETERAL STENT 11/06/2024 8:19 PM CDT - 11/09/2024 4:33 PM CDT Hospital Encounter [facility] [address] [place] [address] [facility], [facility] Hospitalists Of Tigre Salazar DO Larson, Krista Lynn, MD Bowen, Andrew Michael, MD Ureterolithiasis (Primary Dx) Discharge Disposition: Home Self Care 11/06/2024 Travel from Last 3 Months Immunizations Immunization [...] or isolated from those around you? 0 11/06/2024 Alcohol Use Answer Date Recorded How often do you have a drink containing alcohol ? 0 01/12/2025 Average Number of Drinks Not on file 025 Frequency of Binge Drinking Not on file 12/30 Financial Resource Strain Answer Date R ecorded Difficulty of Paying Living Expenses 3 01/03/2024 Difficulty of Paying Living Expenses Not on file 01/03/2024 Food Insecurity Answer Date Recorded Do you worry your food will run out before you are able to buy more? 1 11/06/2024 Transportation Needs Answer Date Record ed Does lack of transportation keep you from medica l appointments? 1 11/06/2024 Does lack of transportation keep you from work, meetings or getting things that you need? 1 11/06/2024 Housing Stability Answer Date Recorded What is your housing situation today? 1 11/06/2024 Interpersonal Safety Answer Date Record ed Are you being hit, kicked, p ushed or yelled at (see row info)? No 11/06/2024 Interpersonal Safety Abuse 12 - 18 Not on file 11/06/2024 Interpersonal Safety Ambulatory Vulnerability No t on file 11/06/2024 Utilities Answer Date Recorded Do you have trouble paying f or utilities (for example, heat, electricity, water, phone)? 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 Gender Identity Not on file Sexual Orientation Not on file Obstetrics History Last Filed Vital Signs Vital Sign Reading Time Taken Comments Blood Pressure 139/70 01/12/2025 1:27 PM CDT Pulse 65 01/12/2025 1:27 PM CDT Temperature 35.8 C (96.4 F) 12/11/2024 11:06 AM CDT Respiratory Rate 16 12/11/2024 11:49 AM CDT Oxygen Saturation 99% 01/12/2025 1:27 PM CDT Inhaled Oxygen Concentration - - Weight 65.5 kg (144 lb 8 oz) 01/12/2025 1:27 PM CDT Height 162.6 cm (5' 4) 01/12/2025 1:27 PM CDT Body Mass Index 24.8 01/12/2025 1:27 PM CDT Plan of Treatment Health Maintenance Due Date Last Done Comments Depression screening for age 12+ 1947 DEXA/DXA scan for age 65+ 2002 Medicare Wellness for age 65+ 2002 RSV vaccine for adults or (1 - 1-dose 75+ series) 2012 COVID-19 vaccine series ( - season) 2024 06/18/2020 Influenza Vaccine (#1) 2024 , 01/09/2019, 01/17/2018, Additional history exists BMI (ht and wt on same day) for age 18+ 01/12/2026 01/12/2025, 09/11/2024, 06/02/2024, Additional history exists Tetanus booster 02/21/2032 02/20/2022, 07/31, 07/19/2006, Additional history exists Pneumococcal series for age 50+ Completed 11/16/2014, 08/04/2007 Zoster (shingles) series for age 50+ Completed 12/15/2018, 10/14/2018 Hepatitis B series for 19+ Aged Out N o longer eligible based on patient's age to complete this topic Medical Devices Implanted Type Area Signal Manager Device Identifier Shelf Expiration Date Model / Serial / Lot Valve Aortic 19mm Inspirus Resilia Tissue - [id number] Implanted:Qty: 1 on 01/01/2024 by Dahiana Ventura MD at [facility] N/A: Aortic Valve [employer] [id number] 11/12/2026 [id number] / [id number] / Description:No rinse per man ufacturer's instructions. Stent Uret [id number] Contour - [id number] Implanted:Qty: 1 on 12/11/2024 by Sudheer Menjivar MD at [facility] Right: Ureter [facility] 05/24/2025 [id number] / / [id number] Explanted Type Area Signal Manager Device Identifier Shelf Expiration Date Model / Serial / Lot Stent Uret [id number] Tria Soft Implanted:Qty: 1 on 11/07/2024 by Sudheer Menjivar MD at [facility] Explanted:Qty: 1 on 12/11/2024 at [facility] 05/04/2027 [id number] / / [id number] Description:Stent Uret 6frx2 2cm Tria Soft Procedures Procedure Name Priority Date/Time Associated Diagnosis Comments XR RETROGRADE PYELOGRAM W/WO KUB HALLIE 12/11/2024 11:08 AM CDT SUPRAGLOTTIC-LMA Routine 12/11/2024 10:37 AM CDT CYSTOSCOPY EXCHANGE URETERAL STENT Tier 2: within 30 days 12/11/2024 10:14 AM CDT kidney stones Case Notes Large C-ArmThulium Laser Lithotripsy CYSTOSCOPY URETEROSCOPY LASER Tier 2: within 30 days 12/11/2024 10:14 AM CDT kidney stones Case Notes Large C-ArmThulium Laser Lithotripsy PROTIME-INR Preop 12/11/2024 8:51 AM CDT POTASSIUM Preop 12/11/2024 8:51 AM CDT GLUCOSE METER Timed 12/11/2024 8:29 AM CDT GLUCOSE METER Timed 11/09/2024 11:39 AM CDT POTASSIUM Today 11/09/2024 10:19 AM CDT PROTIME-INR Early AM 11/09/2024 8:04 AM CDT BASIC METABOLIC PANEL Early AM 11/09/2024 8:04 AM CDT GLUCOSE METER Timed 11/09/2024 6:59 AM CDT GLUCOSE METER Timed 11/08/2024 9:47 PM CDT GLUCOSE METER Timed 11/08/2024 5:18 PM CDT GLUCOSE METER Timed 11/08/2024 12:55 PM CDT GLUCOSE METER Timed 11/08/2024 7:31 AM CDT BASIC METABOLIC PANEL Early AM 11/08/2024 5:09 AM CDT PROTIME-INR Early AM 11/08/2024 5:09 AM CDT GLUCOSE METER Timed 11/07/2024 10:58 PM CDT POTASSIUM Timed 11/07/2024 6:46 PM CDT GLUCOSE METER Timed 11/07/2024 5:08 PM CDT GLUCOSE METER Timed 11/07/2024 1:38 PM CDT XR RETROGRADE PYELOGRAM W/WO KUB Routine 11/07/2024 1:31 PM CDT SUPRAGLOTTIC-LMA Routine 11/07/2024 12:58 PM CDT GLUCOSE METER Timed 11/07/2024 12:25 PM CDT CYSTOSCOPY PLACEMENT URETERAL STENT 11/07/2024 12:14 PM CDT RIGHT URETERAL STONE, PYLONEPHRITIS GLUCOSE METER Timed 11/07/2024 11:50 AM CDT GLUCOSE METER Timed 11/07/2024 7:41 AM CDT MAGNESIUM HALLIE 11/07/2024 5:29 AM CDT CBC W PLT NO DIFF Early AM 11/07/2024 5:2 9 AM CDT BASIC METABOLIC PANEL Early AM 11/07/2024 5:29 AM CDT PROTIME-INR Early AM 11/07/2024 5:29 AM CDT URINE CULTURE Today 11/07/2024 2:09 AM CDT GLUCOSE METER Timed 11/06/2024 10:07 PM CDT PROTIME-INR HALLIE 11/06/2024 8:58 PM CDT SCAN-CARDIAC STRIP 11/06/2024 12:00 AM CDT from Last 3 Months Results * XR RETROGRADE PYELOGRAM W/WO KUB (12/11/2024 11:08 AM CDT) Only the most recent of2 resultswithin the time period is included. Anatomical Region Laterality Modality KIDNEYS, Abdomen Digital Radiogr aphy 12/11/2024 11:4 9 PM CDT Impressions 12/11/2024 11:49 PM CDT Fluoroscopy was provided for purposes of ureteral stent placement. Fluoroscopy time 0.5 minutes. 1 image was captured. Dictated by Oni Merrill MD @ 12/11/2024 11:49:29 PM (Electronically Signed) Narrative 12/11/2024 11:49 PM CDT For Patients: As a result of the Cures Act, medical imaging exams and procedure reports are released immediately into your electronic medical record. You may view this report before your referring provider. If you have questions, please contact your health care provider. INDICATION: Ureteral stent placement. TECHNIQUE: Retrograde pyelogram with stent placement. Procedure Note Oni Merrill MD - 12/11/2024 For Patients: As a result of the Cures Act, medical imagingexams and procedure reports are released immediately into your electronicmedical record. You may view this report before your referring provider.If you have questions, please contact your health care provider. INDICATION: Ureteral stent placement. TECHNIQUE: Retrograde pyelogram with stent placement. IMPRESSION: Fluoroscopy was provided for purposes of ureteral stent placement. Fluoroscopy time 0.5 minutes. 1 image was captured. Dictated by Oni Merrill MD @ 12/11/2024 11:49:29 PM (Electronically Signed) Sudheer Menjivar MD GENERAL IMAGING Final Result * HCHG MASK PR5 (12/11/2024 10:37 AM CDT) Narrative Ludmila Lopez CRNA - 12/11/2024 10:37 AM CDT Ludmila Lopez CRNA 12/11/2024 10:37 AM Procedure: Supraglottic Patient location during procedure: OR Supraglottic Airway Properties Type: unique Tube Size: 4 Placement Verification: CO2 detection and other Assessment Assessment: atraumatic and dentition unchanged Cuff volume (mL): to seal. Gerry Shrestha MD ANESTHESIA PX NOTE ORDERAB LES Final Result * POTASSIUM (12/11/2024 8:51 AM CDT) Only the most recent of3 resultswithin the time period is included. POTASSIUM 4.4 3.5 - 5.1 mmol/L 12/11/2024 9:19 AM CDT [facility] Blood BLOOD SPECIMEN / Unknown IV Start / Unknown 12/11/2024 8:51 AM CDT 12/11/2024 8:54 AM CDT Sudheer Menjivar MD CHEMISTRY Final Result Performing Organization Address [facility] de Phone Number [address] [address] * PROTIME-INR (12/11/2024 8:51 AM CDT) Only the most recent of5 resultswithin the time period is included. INR 1.0 <1.3 12/11/2024 9:05 AM CDT [facility] PROTIME 11.2 10.6 - 12.4 sec 12/11/2024 9:05 AM CDT [facility] Blood BLOOD SPECIMEN / Unknown IV Start / Unknown 12/11/2024 8:51 AM CDT 12/11/2024 8:54 AM CDT Narrative [facility] - 12/11/2024 9:05 AM CDT Therapeutic Range 2.0-3.0 for most anticoagulated patients 2.5-3.5 or 4.0 for high risk patients The INR is only used for patients on stable oral anticoagulant therapy. It makes no significant contribution to the diagnosis or treatment of patients whose Protime is prolonged for other reasons. INR results are increased when heparin levels exceed 1.0 U/mL, which corresponds to an aPTT >125 seconds if the patient is on UFH. Sudheer Menjivar MD HEMATOLOGY Final Result Performing Organization Address [facility] de Phone Number [address] [address] * (ABNORMAL) GLUCOSE METER (12/11/2024 8:29 AM CDT) Only the most recent of14 resultswithin the time period is included. GLUCOSE METER 136(H) 65 - 100 mg/dL 12/11/2024 8:30 AM CDT [facility] Blood BLOOD SPECIMEN / Unknown 12/11/2024 8:29 AM CDT 12/11/2024 8:30 AM CDT Sudheer Menjivar MD CHEMISTRY Final Result [facility] [address] [place] [address] * (ABNORMAL) BASIC METABOLIC PANEL (11/09/2024 8:04 AM CDT) Only the most recent of3 resultswithin the time period is included. SODIUM 134(L) 136 - 145 mmol/L 11/09/2024 8:54 AM CDT [facility] POTASSIUM 11/09/2024 8:54 AM CDT [facility] Comment:Canceled- Specimen H emolyzed, Disposition Per Policy CHLORIDE 104 98 - 107 mmol/L 11/09/2024 8:54 AM CDT [facility] CO2,TOTAL 17(L) 22 - 29 mmol/L 11/09/2024 8:54 AM CDT [facility] ANION GAP 13 5 - 18 11/09/2024 8:54 AM CDT [facility] GLUCOSE 231(H) 70 - 99 mg/dL 11/09/2024 8:54 AM CDT [facility] CALCIUM 7.7(L) 8.8 - 10.4 mg/dL 11/09/2024 8:54 AM CDT [facility] Comment: Reference ranges for this test were updated on 02/04/2024 to reflect our healthy population more accurately. Reference range changes are not retroactively applied to results, but previous results using the same methodology can be interpreted in the context of the new reference range. BUN 28(H) 8 - 23 mg/dL 11/09/2024 8:54 AM CDT [facility] CREATININE 0.94(H) 0.50 - 0.90 mg/dL 11/09/2024 8:54 AM CDT [facility] BUN/CREAT RATIO 30(H) 10 - 20 8:54 AM CDT [facility] eGFR 59(L) >90 mL/min/1. 73m2 11/09/2024 8:54 AM CDT [facility] Comment:As of 2021, eG FR is calculated by the CKD-EPI creatinine equation without race adjustment. eGFR can be influenced by muscle mass, exercise, and diet. The reported eGFR is an estimation only and is only applicable if the renal function is stable. Blood BLOOD SPECIMEN / Unknown Venipuncture / Unknown 11/09/2024 8:04 AM CDT 11/09/2024 8:24 AM CDT us Suzan James MD CHEMISTRY Final Resu lt [facility] [address] [place] [address], * HCHG MASK PR5 (11/07/2024 12:58 PM CDT) Narrative Pietrojose Pan FaustinREDD - 11/07/2024 12:58 PM CDT Fermin Abhilashtenzinaleks Faustin CRNA 11/07/2024 12:58 PM Procedure: Supraglottic Patient location during procedure: OR Supraglottic Airway Properties Mask Ventilation: not attempted Type: unique Tube Size: 4 Insertion Attempts: 1 Placement Verification: auscultation and CO2 detection Assessment Assessment: atraumatic and dentition unchanged Marquita Mcclendon MD ANESTHESIA PX NOTE ORD ERABLES Final Result * (ABNORMAL) CBC W PLT NO DIFF (11/07/2024 5:29 AM CDT) WHITE BLOOD COUNT 12.3(H) 4.5 - 11.0 thou/cu mm 11/07/2024 6:13 AM CDT [facility] RED BLOOD COUNT 3.62(L) 4.00 - 5.20 mil/cu mm 11/07/2024 6:13 AM CDT [facility] HEMOGLOBIN 9.4(L) 12.0 - 16.0 g/dL 11/07/2024 6:13 AM CDT [facility] HEMATOCRIT 28.9(L) 33.0 - 51.0 % 11/07/2024 6:13 AM CDT [facility] MCV 80 80 - 100 fL 11/07/2024 6:13 AM CDT [facility] MCH 26.0 26.0 - 34.0 pg 11/07/2024 6:13 AM CDT [facility] MCHC 32.5 32.0 - 36.0 g/dL 11/07/2024 6:13 AM CDT [facility] RDW 18.0(H) 11.5 - 15.5 % 11/07/2024 6:13 AM CDT [facility] PLATELET COUNT 205 140 - 440 thou/cu mm 11/07/2024 6:13 AM CDT [facility] MPV 10.1 6.5 - 11.0 fL 11/07/2024 6:13 AM CDT [facility] NRBC 0.0 % 11/07/2024 6:13 AM CDT [facility] ABS NRBC 0.0 thou /cu mm 11/07/2024 6:13 AM CDT [facility] Blood BLOOD SPECIMEN / Unknown Venipuncture / Unknown 11/07/2024 5:29 AM CDT 11/07/2024 6:04 AM CDT Tigre Salazar DO HEMATOLOGY Final Resul t [facility] [address] [place] [address], * Magnesium FOR ADD ON (11/07/2024 5:29 AM CDT) MAGNESIUM 1.8 1.6 - 2.4 mg/dL 11/07/2024 7:21 AM CDT [facility] Blood BLOOD SPECIMEN / Unknown Venipuncture / Unknown 11/07/2024 5:29 AM CDT 11/07/2024 6:04 AM CDT Criss Martino MD CHEMISTRY Final Resu lt Performing Organization Address City/[facility]/ZIP Co de Phone Number [facility] [address] [place] [address], * Urine culture - clean catch (11/07/2024 2:09 AM CDT) CULTURE No growth (<1,000 CFU/mL) 11/08/2024 3:14 PM CDT [facility] Urine URINE SPECIMEN / Unknown Non-Blood / Unknown 11/07/2024 2:09 AM CDT 11/07/2024 2:18 AM CDT Tigre Salazar DO MICROBIOLOGY Final Resul t Performing Organization Address [facility] Co de Phone Number [facility] [address] [place] [address], * SCAN-CARDIAC STRIP (11/06/2024 12:00 AM CDT) Narrative 11/06/2024 12:00 AM CDT Ordered by an unspecified provider. Other Clinical Staff OTHER Final Resul t from Last 3 Months Insurance MEDICARE PART A HB ONLY BLUE CROSS [employer]NI[employer] BLUE MR PB ONLY MEDICARE PART B HB ONLY BLUE [employer]OSS [employer] BLUE HB ONLY [employer] PPS Advance Directives * Full Code (Latest Code Status on File) Date Activated Date Inactivated Comments 12/11/2024 8:15 AM 12/11/2024 2:08 PM Question Answer Comments Code Status Discussion: Not Discussed * DNR Date Activated Date Inactivated Comments 11/06/2024 9:03 PM 11/09/2024 6:38 PM Question Answer Comments Code Status Discussion: Reviewed Preferences * Full Code Date Activated Date Inactivated Comments 11/06/2024 9:03 PM 11/06/2024 9:03 PM Question Answer Comments Code Status Discussion: Reviewed Preferences * Full Code Date Activated Date Inactivated Comments 01/01/2024 6:21 AM 01/11/2024 3:59 PM Question Answer Comments Code Status Discussion: Unable to Assess Preferences, Provider to review later * Full Code Date Activated Date Inactivated Comments 2023 11:05 AM 2023 8:40 PM Question Answer Comments Code Status Discussion: Reviewed Preferences Care Teams Farm Manager Relationship Specialty Start Date End Date Keshia Schilling MD [address] [place] [address] PCP - General Family Practice 11/23/[address] [address] 01/11/24
--- OUTSIDE RECORDS SUMMARY | 2025-01-22 21:54 | XMS_ITS | Clinical Summary ---
Author Organization [facility] Address [address] [place] [address] Care Team Providers Care Furniture Painter Name Role Phone None Reported, Pcp Primary Care Provider Unavail able Source Comments Patient records contain information from all sites at [facility]. For routine questions regarding patient records, call [phone] during business hours, M-F 8:00 AM - 5:00 PM Central Time. 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 Gender Identity Not on file Sexual Orientation Not on file Last Filed Vital Signs Vital Sign Reading Time Taken Comments Blood Pressure 141/70 02/28/2024 3:40 PM MEDICAL OFFICE CLERK Pulse 80 02/28/2024 3:40 PM MEDICAL OFFICE CLERK Temperature 36.5 C (97.7 F) 02/28/2024 3:40 PM MEDICAL OFFICE CLERK Respiratory Rate 17 02/28/2024 3:40 PM MEDICAL OFFICE CLERK Oxygen Saturation 95% 02/28/2024 3:40 PM MEDICAL OFFICE CLERK Inhaled Oxygen Concentration - - Weight 65.2 kg (143 lb 11.2 oz) 02/28/2024 2:57 PM MEDICAL OFFICE CLERK Height 162 cm (5' 3.78) 10/31/2012 4:13 PM CDT Body Mass Index - - Plan of Treatment Health Maintenance Due Date Last Done Comments RSV vaccine - (32-36 weeks) or 50+ years (1 - 1-dose 75+ series) 2012 Depression Screening (Annual PHQ-2) 04/01/2024 COVID-19 Vaccine (2 - 2024- season) 2024 06/18/2020 Influenza Vaccine (#1) 2024 4, 02/08/2022, 02/16/2021, Additional history exists DTaP,Tdap,and Td Vaccines (3 - Td or Tdap) 02/21/2032 02/20/2022, 08/28/2011, 07/19/2006, Additional history exists Pneumococcal vaccine (50+ years) Completed 11/16/2014, 08/04/2007 Zoster Vaccines Completed 12/15/2018, 10/14/2018 Fall Risk Screen (Annual) Completed 06/11/2024 IPV Vaccines Aged Out No longer eligi ble based on patient's age to complete this topic Procedures Procedure Name Priority Date/Time Associated Diagnosis Comments OUTSIDE CT BODY Routine 11/06/2024 4:35 PM CDT from Last 3 Months Results * CT chest abdomen pelv wo con-Outside CT Body (11/06/2024 4:35 PM CDT) Narrative IIMS - 11/07/2024 9:28 AM CDT This order has been created and auto-finalized to support the import of outside images. If available, original interpretation can be found on the Media Tab in Chart Review, in Document Viewer, as an image in InfinityView or as an Addendum. If a re-interpretation or overread is required please follow defined workflow. us Provider Not In System IMG CT PROCEDURES Final R esult IIMS NA from Last 3 Months Insurance [facility] MEDICARE Care Teams Furniture Painter Relationship Specialty Start Date End Date None Reported, Pcp PCP - General Family Medicine 02/28/24
--- OUTSIDE RECORDS SUMMARY | 2025-01-22 21:54 | XMS_ITS | Data Portability ---
Author Organization [place] - [facility], [facility] - [facility] Address [address] [place] [address] Assessment Encounter Date Assessment Date Assessment LastModified [...] our office. ecram Not available 06/15/2024 18:38:43 07/03/2024 07/03/2024 ASSESSMENT: Patient is a good candidate for [...] to contact our office. ecram Not available 07/03/2024 18:42:07 07/20/2024 07/20/2024 ASSESSMENT: Patient is a good candidate for [...] to contact our office. 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 Procedures Surgical History Date Name Laterality Status Provider Name and Address Organization Details Recorded Time 18942: Spinal manipulation , 1 to 2 regions completed Abbe Severo HodgestiffanyROCÍO [address], [place], [address], [facility] 07/20/2024 16:47:35 75992: Spinal manipulation , 1 to 2 regions completed Abbeteresita Ferraro DC [address], [place], [address], [facility] 07/03/2024 18:42:07 5 27937: Spinal manipulation , 1 to 2 regions completed Abbe Elkins CarrolltiffanyROCÍO [address], [place], [address], [facility] 06/15/2024 18:40:36 Imaging Results None recorded. [...] Diagnosis SNOMED-CT Code Diagnosis ICD10 Code Diagnosis IMO Codes Diagnosis Note [id number] Abbe ROCÍO [facility] [address] [place] [address] 06/15/2024 18:23:03 06/15/2024 19:03:36 Cervical segmental dysfunction 712852321 M99.01 Neck pain 93853179 M54.2 Thoracic s egmental dysfunction 969680518 M99.02 Lumbar seg mental dysfunction 631027926 M99.03 [id number] Abbe Ferraro DC [facility] [address] [place] [address] 07/03/2024 16:41:37 07/03/2024 19:01:50 Cervical segmental dysfunction 044230676 M99.01 Neck pain 41123442 M54.2 Thoracic s egmental dysfunction 710825678 M99.02 Lumbar seg mental dysfunction 214965730 M99.03 [id number] ROCÍO [facility] [address] [place] [address] 07/20/2024 16:40:45 07/20/2024 17:19:49 Cervical segmental dysfunction 063493197 M99.01 Neck pain 51707674 M54.2 Thoracic s egmental dysfunction 901007156 M99.02 Lumbar seg mental dysfunction 403592409 M99.03 Health Concerns Section Related Observation LastModified by Organization Detai ls LastModified Time None Recorded Concern Status LastModified by Organization Details LastModified Time None Recorded Advance Directives Directive None Recorded Payers Insurance Date Sequence Insurance Name Policy Number Policy Sanchez Covered Member ID Sanchez Member ID Guarantor Name 06/15/2024 1 *SELF PAY* Sebastián Cody 07/03/2024 SLIDING FEE SCHEDULE - DISCOUNT Ambika Glo Notes Date Note Type Note Provider Name and Address Organization Details Recorded Time 06/15/2024 text/html HPI - Cervical SpineReported by PatientHPIFor location, patient reportsright. For quality, patient reportsaching. For severity, patient reportsmoderate. For duration, patient reportsdate of onset: (06/15/2024),___ days, and___ weeks. For timing, patient reportsacute. For context, patient reportstwisting. For alleviating factors, patient reportsnothing helps. For aggravating factors, patient reportstwisting/turn ing. For associated symptoms, patient reportsno numbness/tingling. Abbe Ferraro DC [address], [place], [address], [facility] 06/15/2024 18:41:10 07/03/2024 text/html HPI - Cervical SpineReported by PatientHPIFor location, patient reportsright. For quality, patient reportsaching. For severity, patient reportsmoderate. For duration, patient reportsdate of onset: (06/15/2024),___ days, and___ weeks. For timing, patient reportsacute. For context, patient reportstwisting. For alleviating factors, patient reportsnothing helps. For aggravating factors, patient reportstwisting/turn ing. For associated symptoms, patient reportsno numbness/tingling. Abbe Ferraro DC [address], [place], [address], [facility] 07/03/2024 18:42:53 07/20/2024 text/html HPI - Cervical SpineReported by PatientHPIFor location, patient reportsright. For quality, patient reportsaching. For severity, patient reportsmoderate. For duration, patient reportsdate of onset: (06/15/2024),___ days, and___ weeks. For timing, patient reportsacute. For context, patient reportstwisting. For alleviating factors, patient reportsnothing helps. For aggravating factors, patient reportstwisting/turn ing. For associated symptoms, patient reportsno numbness/tingling. Abbe Ferraro DC [address], [place], [address], [facility] 07/20/2024 16:48:43 OBGyn Episode No OBEpisode recorded.
--- OUTSIDE RECORDS SUMMARY | 2025-01-22 21:54 | XMS_ITS | Data Portability ---
Author Organization [facility] Address [address] [place] [address] Care Team Providers Care Counter Dish Carrier Name Role Phone ROB CHELSIE Primary Care Provider Assessment No assessment recorded. Plan of Treatment Reminders Order Date Submit Date Provider Last Modified By Organization Details Last Modified Time Details Appointments None record ed. Lab None record ed. Referral None record ed. Procedures None record ed. Surgeries None record ed. Imaging None record ed. Medication Orders None record ed. Patient TargetsNo targets recorded. Patient InstructionsNo instructions recorded. Reason for Referral None Reported. Results Created Date Observation Date Name Description Value Unit Range Abnormal Flag Note LastModifiedBy Organization Detail LastModifiedTime 12/13/1912/11/2024 XR, pyelo gram No observ ation record ed. [facility] [address] [place], [address], 12/14/2024 09:07:47 Result Notes None recorded. Problems Name Problem SNOMED Code Status Onset Date Resolution Date Notes Provider Name and Address Organization Details Recorded Time Kidney stone 16712108 Active 025 Sudheer Menjivar MD [address], [address] , [facility] 12/23/2024 14:36:08 Problem Notes None recorded. Procedures Surgical History Date Name Laterality Status Provider Name and Address Organization Details Recorded Time Cystoscopy with foreign body/stent removal completed Sudheer Menjivar MD [address] [place] [address],[address], [place], [address], [facility] 12/23/2024 14:35:58 02/02/201 7 Colonoscopy completed Renuka Chavarria [facility] [place] [facility] 12/23/2024 14:21:41 Imaging Results None recorded. Procedure Notes None recorded. Medical Equipment None Reported. Allergies Allergen ID Allergen Name Allergen Category Reaction Reaction Severity Criticality Documentation Date Start Date Code Code System Note Provider Name and Address Organization Details Recorded Time 410420 penicilli n V Not available Not available Not available low 12/18/20242024 7984 RxNorm Ciera Fiore [facility] 16:19:28 958157 Product containin g penicilli n (product) medicatio n itching Not available Not available 12/18/20242005 09958 8001 SNOMED Ciera Fiore [facility] 16:19:30 Medications Name Sig Start Date Stop Date Status Note LastModified by Organization Details LastModified Time atorvastatin 80 mg tablet TAKE 1 TABLET BY MOUTH DAILY active Not Available Not Available No t Available cefuroxime axetil 250 mg tablet active Not Available Not Available Not Available sertraline 100 mg tablet TAKE 1 TABLET BY MOUTH EVERY DAY active Not Available Not Available No t Available irbesartan 75 mg tablet active Not Available Not Available No t Available metformin ER 500 mg tablet,extende d release 24 hr TAKE 2 TABLETS BY MOUTH TWICE DAILY active Not Available Not Available No t Available Vitals None Recorded Social History Question Answer Notes LastModified by Organizat ion Details LastModified Time Tobacco Smoking Status [facility] 12/23/2024 14:21:29 What Is Your Level Of Caffeine Consumption? Occasional Information not available 12/23/2024 What Was The Date Of Your Most Recent Tobacco Screening? 12/23/2024 Information not available 12/23/2024 Has Tobacco Cessation Counseling Been Provided? No Information not available 12/23/2024 Sex: Unknown Functional Status Question Answer Note LastModified by Organizat ion Details LastModified Time Do you use any illicit or recreational drugs? No Information not available 12/23/2024 Do you or have you ever used any other forms of tobacco or nicotine? No Information not available 12/23/2024 What is your level of alcohol consumption? None Information not available 12/23/2024 Mental Status None recorded. Family History Relationship Description Onset Age of this Age Resolved Age Notes LastModified by Organization Details LastModified Time Father No current problems or disability [email or web address] Not available 12/23 14:21:18 Mother No current problems or disability [email or web address] Not available 12/23 14:21:18 Medical History Condition Response Diabetes N Sexually Transmitted Infection N Other N Bleeding Disorder N High Blood Pressure N Kidney Stones Y Cancer N Lung Disease N Depression N High Cholesterol N GERD/Acid Reflux N Heart Disease N Gynecological HistoryNo gynecological history recorded. Obstetrics History GPAL:G 0 P 0 0 0 0 Immunizations Vaccine Type Date Status Note Provider Nam e and Address Organization Details Recorded Time Influenza, split virus, trivalent, preservative 6 completed Not Available [facility] 12/23/2024 13:59:51 Influenza, split virus, trivalent, preservative 7 completed Not Available [facility] 12/23/2024 13:59:51 pneumococcal polysaccharide PPV23 8 completed Not Available [facility] 12/23/2024 13:59:51 Influenza, split virus, trivalent, preservative 8 completed Not Available [facility] 12/23/2024 13:59:51 influenza, unspecified formulation 9 completed Not Available [facility] 12/23/2024 13:59:51 Novel [id number], all formulations 9 completed Not Available [facility] 12/23/2024 13:59:51 Influenza, split virus, trivalent, PF 0 completed Not Available [facility] 12/23/2024 13:59:51 influenza, unspecified formulation 1 completed Not Available [facility] 12/23/2024 13:59:51 Tdap 2 completed Not Available [facility] 12/23/2024 13:59:51 Influenza, split virus, trivalent, preservative 2 completed Not Available [facility] 12/23/2024 13:59:51 Td (adult), 2 Lf tetanus toxoid, preservative free, adsorbed 3 completed Not Available [facility] 13:59:51 Influenza, split virus, trivalent, preservative 3 completed [facility] 12/23/2024 13:59:51 Influenza, split virus, trivalent, preservative 4 completed [facility] 12/23/2024 13:59:51 Pneumococcal conjugate PCV 13 5 completed Not Available [facility] 12/23/2024 13:59:51 Influenza, high-dose, trivalent, PF 5 completed Not Available [facility] 13:59:51 Influenza, high-dose, trivalent, PF 6 completed Not Available [facility] 13:59:51 Influenza, high-dose, trivalent, PF 7 completed [facility] 12/23/2024 13:59:51 Influenza, high-dose, trivalent, PF 8 completed Not Available [facility] 12/23/2024 13:59:51 zoster recombinant 9 completed [facility] 12/23/2024 13:59:51 zoster recombinant 9 completed Not Available [facility] 12/23/2024 13:59:51 Influenza, high-dose, trivalent, PF 9 completed Not Available [facility] 12/23/2024 13:59:51 Td (adult), 5 Lf tetanus toxoid, preservative free, adsorbed 7 completed Not Available [facility] 12/23/2024 13:59:51 Influenza, split virus, quadrivalent, PF 9 completed [facility] 12/23/2024 13:59:51 Influenza, high-dose, quadrivalent, PF 0 completed Not Available [facility] 13:59:51 COVID-19, mRNA, LNP-S, PF, 30 mcg/0.3 mL dose 1 completed Not Available [facility] 12/23/2024 13:59:51 Influenza, adjuvanted, quadrivalent, PF 1 completed Not Available [facility] 12/23/2024 13:59:51 Influenza, high-dose, quadrivalent, PF 2 completed Not Available [facility] 12/23/2024 13:59:51 Tdap 2 completed Not Available [facility] 12/23/2024 13:59:51 Influenza, high-dose, trivalent, PF 4 completed Not Available [facility] 12/23/2024 13:59:51 Past Encounters Encounter ID Performer Location Encounter Start Date Encounter Closed Date Diagnosis/Indication Diagnosis SNOMED-CT Code Diagnosis ICD10 Code Diagnosis IMO Codes Diagnosis Note [id number] Sudheer Menjivar MD _[facility] [address] [place] [address] 12/23/2024 13:57:18 01/04/2025 11:58:29 Kidney stone 56689416 N20.0 46039 - stent removed today- encouraged adequate daily fluid intake- RTC prn Health Concerns Section Related Observation LastModified by Organization Detai ls LastModified Time None Recorded Concern Status LastModified by Organization Details LastModified Time None Recorded Advance Directives Directive None Recorded Payers Insurance Date Sequence Insurance Name Policy Number Policy Sanchez Covered Member ID Sanchez Member ID Guarantor Name 01/04/2025 1 [place] [employer] - MEDICARE COST [id number] Ambika Cody [id number] Ambika Cody Notes Date Note Type Note Provider Name and Address Organization Details Recorded Time 12/23/2024 text/html She was seen in consultation at [facility] on 11/07/2024 with right UPJ stone and possible urosepsis. Stent was placed at that time. She underwent definitive ureteroscopy with laser lithotripsy and stent exchange on 12/11/2024. She presents today for stent removal. No prior kidney stones. Sudheer Menjivar MD [address], [place], [address], [facility] 12/23/2024 14:36:54 OBGyn Episode No OBEpisode recorded.
--- OUTSIDE RECORDS SUMMARY | 2025-01-22 21:54 | XMS_ITS | Continuity of Care Document ---
Author Organization [facility], [facility] Address [address] [place] [address] Care Team Providers Care Radio Talk Show Host Name Role Phone TREVORCHELSIE MCGUIRE Primary Care Provider Assessment No assessment recorded. [...] pyelo gram No observ ation record ed. [facility] [address] [place], [address], 12/14/2024 09:07:47 Result Notes None recorded. Problems Name Problem SNOMED Code Status Onset Date Resolution Date Notes Provider Name and Address Organization Details Recorded Time Kidney stone 26301274 Active 025 Sudheer Menjivar MD [address] [place] [address],[address], [address] , [facility] 12/23/2024 14:36:08 Problem Notes None recorded. Procedures Surgical History Date Name Laterality Status Provider Name and Address Organization Details Recorded Time Cystoscopy with foreign body/stent removal completed Sudheer Menjivar MD [address] [place] [address],[address], [address], [facility] 12/23/2024 14:35:58 7 Colonoscopy completed Renuka Chavarria [facility] 12/23/2024 14:21:41 Imaging Results None recorded. Procedure Notes None recorded. Medical Equipment None Reported. Allergies Allergen ID Allergen Name Allergen Category Reaction Reaction Severity Criticality Documentation Date Start Date Code Code System Note Provider Name and Address Organization Details Recorded Time 313924 penicilli n V Not available Not available Not available [facility] 12/18/20242024 7984 [facility] 16:19:28 718393 Product containin g penicilli n (product) medicatio n itching Not available Not available 12/18/20242005 73866 8001 SNOMED Ciera Fiore [facility] 16:19:30 Medications Name Sig Start Date Stop [...] Time Tobacco Smoking Status Never [facility]oker [facility] 12/23/2024 14:21:29 What Is Your [...] available 12/23 14:21:18 Medical History Condition Response Sexually Transmitted Infection N Diabetes N Bleeding Disorder N Other N High Blood Pressure N Kidney Stones Y High Cholesterol N GERD/Acid Reflux N Heart Disease N Cancer N Lung Disease N Depression N Gynecological HistoryNo gynecological history recorded. Obstetrics History GPAL:G 0 P 0 0 0 0 Immunizations Vaccine Type Date Status Note Provider Nam e and Address Organization Details Recorded Time Influenza, split virus, trivalent, preservative 6 completed Not Available [facility] 12/23/2024 13:59:51 Influenza, split virus, trivalent, preservative 7 completed Not Available [facility] 12/23/2024 13:59:51 pneumococcal polysaccharide PPV23 8 completed Not Available [facility] 12/23/2024 13:59:51 Influenza, split virus, trivalent, preservative 8 completed Not Available [facility] 12/23/2024 13:59:51 influenza, unspecified formulation 9 completed Not Available [facility] 12/23/2024 13:59:51 Novel [id number], all formulations 9 completed Not Available [facility] 12/23/2024 13:59:51 Influenza, split virus, trivalent, PF 0 completed Not Available [facility] 12/23/2024 13:59:51 influenza, unspecified formulation 1 completed Not Available [facility] 12/23/2024 13:59:51 Tdap 2 completed Not Available [facility] 12/23/2024 13:59:51 Influenza, split virus, trivalent, preservative 2 completed Not Available [facility] 12/23/2024 13:59:51 Td (adult), 2 Lf tetanus toxoid, preservative free, adsorbed 3 completed Not Available [facility] 12/23/2024 13:59:51 Influenza, split virus, trivalent, preservative 3 completed Not Available [facility] 12/23/2024 13:59:51 Influenza, split virus, trivalent, preservative 4 completed Not Available [facility] 12/23/2024 13:59:51 Pneumococcal conjugate PCV 13 5 completed Not Available [facility] 12/23/2024 13:59:51 Influenza, high-dose, trivalent, PF 5 completed Not Available [facility] 12/23/2024 13:59:51 Influenza, high-dose, trivalent, PF 6 completed Not Available [facility] 13:59:51 Influenza, high-dose, trivalent, PF 7 completed Not Available [facility] 12/23/2024 13:59:51 Influenza, high-dose, trivalent, PF 8 completed Not Available [facility] 12/23/2024 13:59:51 zoster recombinant 9 completed Not Available [facility] 12/23/2024 13:59:51 zoster recombinant 9 completed Not Available [facility] 12/23/2024 13:59:51 Influenza, high-dose, trivalent, PF 9 completed Not Available [facility] 12/23/2024 13:59:51 Td (adult), 5 Lf tetanus toxoid, preservative free, adsorbed 7 completed Not Available [facility] 13:59:51 Influenza, split virus, quadrivalent, PF 9 completed Not Available [facility] 12/23/2024 13:59:51 Influenza, high-dose, quadrivalent, PF 0 completed Not Available [facility]/20[facility] 13:59:51 COVID-19, mRNA, LNP-S, PF, 30 mcg/0.3 mL dose 1 completed Not Available [facility] 12/23/2024 13:59:51 Influenza, adjuvanted, quadrivalent, PF 1 completed Not Available [facility] 12/23/2024 13:59:51 Influenza, high-dose, quadrivalent, PF 2 completed Not Available [facility] 12/23/2024 13:59:51 Tdap 2 completed Not Available [facility] 12/23/2024 13:59:51 Influenza, high-dose, trivalent, PF 4 completed Not Available [facility] 12/23/2024 13:59:51 Past Encounters Encounter ID Performer Location Encounter Start Date Encounter Closed Date Diagnosis/Indication Diagnosis SNOMED-CT Code Diagnosis ICD10 Code Diagnosis IMO Codes Diagnosis Note [id number] [facility] [address] [place] [address] 12/23/2024 13:57:18 01/04/2025 11:58:29 Kidney stone 01069039 N20.0 60623 - stent removed today- encouraged adequate daily fluid intake- RTC prn Health Concerns Section Related Observation LastModified by Organization Detai ls LastModified Time None Recorded Concern Status LastModified by Organization Details LastModified Time None Recorded Payers Encounter Date Sequence Insurance Name Policy Number Policy Sanchez Covered Member ID Sanchez Member ID Guarantor Name 12/23/2024 1 [employer] [employer] COST [id number] Ambika Cody [id number] Ambika Cody Notes Date Note Type Note Provider Name and Address Organization Details Recorded Time 12/23/2024 text/html She was seen in consultation at [facility] on 11/07/2024 with right UPJ stone and possible urosepsis. Stent was placed at that time. She underwent definitive ureteroscopy with laser lithotripsy and stent exchange on 12/11/2024. She presents today for stent removal. No prior kidney stones. Sudheer Menjivar MD [address], [place], [address], [facility] 12/23/2024 14:36:54 OBGyn Episode No OBEpisode recorded.
[2025-01-22 21:56] VITALS: BP 151/81; PULSE 68; RESP 16; TEMP 36.6; O2SAT 99; BMI 25.2
--- NOTE | 2025-01-22 22:12 | ED.GENADULT ---
HPI - General Adult General Chief complaint: Weakness Stated complaint: poss TIA Time Seen by Provider: 01/22/25 22:10 History of Present Illness HPI narrative: Patient had vision changes, weakness and lightheadedness at about 8:30. Patient was also sweaty, and off balance according to family. Patient says symptoms resolved around 9, but now has a headache. 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 89-year-old woman presenting to the emergency department Related Data Home Medications ?Medication ?Instructions ?Recorded ?Confirmed blood glucose control, normal 11/29/21 12/04/24 (Accu-Chek SmartView Control Solution) lancets (Accu-Chek Fastclix Lancet 11/29/21 12/04/24 Drum) nitroglycerin 0.4 mg sublingual 0.4 mg sublingual ONCE PRN 01/29/24 01/22/25 tablet (Nitrostat) irbesartan 75 mg tablet mg PO DAILY 05/06/24 12/04/24 Lactobacillus cap PO BID 06/24/24 12/04/24 no.51-Bifidobacterium no.4 50 billion cell capsule (up4 Probiotics Ultra) alendronate 70 mg tablet 70 mg PO QWEEK 09/16/24 01/22/25 Previous Rx's ?Medication ?Instructions ?Recorded blood sugar diagnostic (Accu-Chek #100 strips 11/09/22 SmartView Test Strips) pioglitazone 15 mg tablet 15 mg PO QDAY #90 tabs 01/17/24 sertraline 100 mg tablet 100 mg PO QDAY #90 tabs 01/17/24 warfarin 2 mg tablet See Rx Instructions PO QDAY #100 06/09/24 tabs levothyroxine 88 mcg tablet 88 mcg PO QDAY #90 tabs 07/15/24 furosemide 20 mg tablet 20 mg PO QDAY #90 tabs 07/31/24 cyanocobalamin (vitamin B-12) 1,000 mcg PO .3 tanvir a week #90 09/16/24 1,000 mcg tablet (Vitamin B-12) tabs potassium chloride 10 mEq 40 meq (4 x 10 mEq) PO QDAY #360 09/23/24 capsule,extended release caps hydrochlorothiazide 25 mg tablet 25 mg PO QDAY #90 tabs 09/24/24 metoprolol succinate 25 mg 25 mg PO QDAY #90 tabs 10/06/24 tablet,extended release 24 hr hydralazine 10 mg tablet 10 mg PO BID #180 tabs 10/27/24 atorvastatin 80 mg tablet 80 mg PO DAILY #90 tabs 12/01/24 metformin 500 mg tablet,extended 1,000 mg (2 x 500 mg) PO BID #360 12/08/24 release 24 hr tabs glipizide 10 mg tablet 10 mg PO BID #180 tabs 12/21/24 Allergies Allergy/AdvReac Type Severity Reaction Status Date / Time penicillin V Allergy Mild Hands and Verified 01/22/25 22:02 feet itchy,red [facility] Medical History (Updated 12/04/24 @ 15:00 by Keshia Schilling MD) Type 2 diabetes mellitus ?E11.9 - Type 2 diabetes mellitus without complications (ICD-10) Diarrhea ?R19.7 - Diarrhea, unspecified (ICD-10) ASCVD (arteriosclerotic cardiovascular disease) (~2005) ?I25.10 - Atherosclerotic heart disease of [place] coronary artery without angina pectoris (ICD-10) Hypertension ?I10 - Essential (primary) hypertension (ICD-10) Hyperlipidemia (08/16/09) ?E78.5 - Hyperlipidemia, unspecified (ICD-10) Hypothyroidism ?E03.9 - Hypothyroidism, unspecified (ICD-10) History of atrial fibrillation ?Z86.79 - Personal history of other diseases of the circulatory system (ICD-10) Asthma (08/16/09) ?J45.909 - Unspecified asthma, uncomplicated (ICD-10) Anxiety ?F41.9 - Anxiety disorder, unspecified (ICD-10) Osteoporosis ?M81.0 - Age-related osteoporosis without current pathological fracture (ICD-10) Thoracic compression fracture ?S22.000A - Wedge compression fracture of unspecified thoracic vertebra, initial encounter for closed fracture (ICD-10) Stress incontinence ?N39.3 - Stress incontinence (female) (male) (ICD-10) Diverticulosis (05/27/12) ?K57.90 - Diverticulosis of intestine, part unspecified, without perforation or abscess without bleeding (ICD-10) Adenomatous polyp of colon ?D12.6 - Benign neoplasm of colon, unspecified (ICD-10) Aortic stenosis ?I35.0 - Nonrheumatic aortic (valve) stenosis (ICD-10) Trochanteric bursitis ?M70.60 - Trochanteric bursitis, unspecified hip (ICD-10) Mass of right kidney ?N28.89 - Other specified disorders of kidney and ureter (ICD-10) Osteopenia (12/22/12) ?M85.80 - Other specified disorders of bone density and structure, unspecified site (ICD-10) Back pain ?M54.9 - Dorsalgia, unspecified (ICD-10) Fracture, humerus ?S42.309A - Unspecified fracture of shaft of humerus, unspecified arm, initial encounter for closed fracture (ICD-10) Surgical History (Updated 12/04/24 @ 11:22 by Keshia Schilling MD) History of cystoscopy ?Z98.890 - Other specified postprocedural states (ICD-10) Status post aortic valve replacement (12/2023) ?Z95.2 - Presence of prosthetic heart valve (ICD-10) 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) ?Z95.1 - Presence of aortocoronary bypass graft (ICD-10) Status post nasal surgery (08/16/09) ?Z98.890 - Other specified postprocedural states (ICD-10) Status post cataract extraction ?Z98.49 - Cataract extraction status, unspecified eye (ICD-10) Status post appendectomy (08/16/09) ?Z90.49 - Acquired absence of other specified parts of digestive tract (ICD-10) History of coronary artery stent placement (08/16/09) ?Z95.5 - Presence of coronary angioplasty implant and graft (ICD-10) History of colonoscopy ?Z98.890 - Other specified postprocedural states (ICD-10) Family History Sister Colon cancer, Onset Age: 84 Coronary artery disease Father Myocardial infarction, Onset Age: 51 Brother Myocardial infarction, Onset Age: 51 Mother Stroke, Onset Age: 97 Maternal Grandfather Diabetes Aunt Diabetes Social History (Updated 12/04/24 @ 15:13 by Keshia Schilling MD) Narrative: , lives alone [place] farm in [place], 6 living children Walk 1-1/2 miles on treadmill several times a week. Active lifestyle Never smoker Does not drink alcohol What is your current living situation?: I presently have a place to live Problems where you live: no known problems In the past 12 months, utilities in danger of being shut off: no In past 12 months, lack of transportation kept you from medical appts, meetings, work, or getting things needed for daily living: no In the past 12 mos, have been you worried that your food would run out before you had money to buy more?: never true In the past 12 mos, the food you bought just didn't last and you didn't have money to buy more?: never true Smoking Status: Never smoker Do you use any of these nicotine containing products: None Second hand tobacco smoke exposure: No How often do you have a drink containing alcohol: never How often do you have six or more drinks on one occasion: Never AUDIT-C Alcohol total score: 0 Non-prescribed substance use: denies use How often does anyone, including family, friends and others, physically hurt you: never How often does anyone, including family, friends and others, insult or talk down to you: never How often does anyone, including family, friends and others, threaten you with harm: never How often does anyone, including family, friends and others, scream or curse at you: never service: No Exam Const: Vital Signs, click to edit/add: Vital Signs - 24 hr 01/22/25 21:56 Temperature 97.8 F Pulse Rate [Pulse Oximeter] 68 Respiratory Rate 16 Blood Pressure [Ri ght Upper Arm] 151/81 H Pulse Oximetry 99 Oxygen Delivery Me thod Room Air Course Vital Signs Vital signs: Initial Vital Signs Temperature 97.8 F 01/22/25 21:56 Temperature Source Temporal Artery Scan 01/22/25 21:56 Pulse Rate 68 01/22/25 21:56 Respiratory Rate 16 01/22/25 21:56 Blood Pressure 151/81 H 01/22/25 21:56 Blood Pressure Mean 104 01/22/25 21:56 Pulse Oximetry 99 01/22/25 21:56 Oxygen Delivery Method Room Air 01/22/25 21:56 Vital Signs Temperature 97.8 F 01/22/25 21:56 Pulse Rate 68 01/22/25 21:56 Respiratory Rate 16 01/22/25 21:56 Blood Pressure 151/81 H 01/22/25 21:56 Pulse Oximetry 99 01/22/25 21:56 Oxygen Delivery Method Room Air 01/22/25 21:56 Temperature 97.8 F 01/22/25 21:56 Pulse Rate 68 01/22/25 21:56 Respiratory Rate 16 01/22/25 21:56 Blood Pressure 151/81 H 01/22/25 21:56 Pulse Oximetry 99 01/22/25 21:56 Oxygen Delivery Method Room Air 01/22/25 21:56 Discharge Plan Discharge Prescriptions: No Action nitroglycerin [Nitrostat] 0.4 mg tablet, sublingual 0.4 mg sublingual ONCE PRN Rx Instructions: as a single dose; administer 5-10 minutes before situation known to precipitate angina attack irbesartan 75 mg tablet PO DAILY alendronate 70 mg tablet 70 mg PO QWEEK cyanocobalamin (vitamin B-12) [Vitamin B-12] 1,000 mcg tablet 1,000 mcg PO .3 tanvir a week Qty: 90 1RF Rx Instructions: Take 1 tablet 3 times a week for low B12 pioglitazone 15 mg tablet 15 mg PO QDAY Qty: 90 3RF sertraline 100 mg tablet 100 mg PO QDAY Qty: 90 3RF up4 Probiotics Ultra 50 billion cell capsule PO BID levothyroxine 88 mcg tablet 88 mcg PO QDAY Qty: 90 3RF (DME) blood glucose control, normal [Accu-Chek SmartView Contrl Dolores] Solution See Rx Instructions .Route Rx Instructions: As directed (DME) lancets [Accu-Chek Fastclix Lancet Drum] Misc See Rx Instructions .Route Rx Instructions: As directed (DME) Accu-Chek SmartView Test Strip Strip See Rx Instructions .ROUTE .COMPLEX Qty: 100 3RF Dose Instruction: TEST BLOOD SUGAR EVERY DAY (DUE FOR RECHECK IN CLINIC IN . PLAN FASTING LABS) Rx Instructions: TEST BLOOD SUGAR EVERY DAY (DUE FOR RECHECK IN CLINIC IN . PLAN FASTING LABS) warfarin 2 mg tablet See Rx Instructions PO QDAY Qty: 100 3RF Protocol: Dose Management Condition: Saturday Dose/Route: 4 mg Instruction: 2 x 2 mg tablets Condition: Saturday Dose/Route: 4 mg Instruction: 2 x 2 mg tablets Condition: Saturday Dose/Route: 4 mg Instruction: 2 x 2 mg tablets Condition: Saturday Dose/Route: 4 mg Instruction: 2 x 2 mg tablets Condition: Dose/Route: 4 mg Instruction: 2 x 2 mg tablets Condition: Saturday Dose/Route: 4 mg Instruction: 2 x 2 mg tablets Condition: Saturday Dose/Route: 4 mg Instruction: 2 x 2 mg tablets Protocol Text: Adjustment Start Date: Saturday01/12/25 INR Value: 2.5 INR Date: 01/11/25 Recheck Date: 01/26/25 Rx Instructions: 2 mg Q Sat and , and 3 mg Q ---- orally every day; furosemide 20 mg tablet 20 mg PO QDAY Qty: 90 0RF potassium chloride 10 mEq capsule, extended release 40 meq PO QDAY Qty: 360 1RF hydrochlorothiazide 25 mg tablet 25 mg PO QDAY Qty: 90 1RF metoprolol succinate 25 mg tablet extended release 24 hr 25 mg PO QDAY Qty: 90 3RF hydralazine 10 mg tablet 10 mg PO BID Qty: 180 3RF atorvastatin 80 mg tablet 80 mg PO DAILY Qty: 90 2RF metformin 500 mg tablet extended release 24 hr 1,000 mg PO BID Qty: 360 0RF glipizide 10 mg tablet 10 mg PO BID Qty: 180 0RF Follow Up/Referrals: Keshia Schilling MD [Primary Care Provider, Family Practice]
--- NOTE | 2025-01-22 22:38 | CRLHL7_ITS ---
For Patients: As a result of the Century Cures Act, medical imaging exams and procedure reports are released immediately into your electronic medical record. You may view this report before your referring provider. If you have questions, please contact your health care provider. INDICATION: Near syncope. TECHNIQUE: CTA head using intravenous contrast with bolus tracking, 3D angiographic rendering using maximum intensity projection (MIP) and images permanently archived. CTA neck using intravenous contrast with bolus tracking, 3D angiographic rendering using maximum intensity projection (MIP) and images permanently archived. FINDINGS: CTA head: There is scattered intracranial atherosclerotic disease. There is normal opacification of the intracranial vasculature. There is no large vessel occlusion or significant intracranial stenosis. No aneurysm is identified. CTA neck: There is carotid atherosclerosis bilaterally. There is atherosclerotic plaque in the proximal right ICA resulting in a mild stenosis, less than 50% by NASCET. There is atherosclerotic plaque in the proximal left ICA resulting in a mild stenosis, less than 50% by NASCET. There is no significant vertebral artery stenosis or dissection. IMPRESSION: No acute intracranial abnormality at CTA. Mild proximal right ICA stenosis, less than 50% by NASCET. Mild proximal left ICA stenosis, less than 50% by NASCET. Please note that all CT scans at this facility use dose modulation, iterative reconstruction, and/or weight-based dosing when appropriate to reduce radiation dose to as low as reasonably achievable. Dictated by Danilo Webb MD @ 01/23/2025 3:01:58 PM (Electronically Signed)
--- NOTE | 2025-01-22 22:38 | CRLHL7_ITS ---
For Patients: As a result of the Century Cures Act, medical imaging exams and procedure reports are released immediately into your electronic medical record. You may view this report before your referring provider. If you have questions, please contact your health care provider. Indication: Near syncope Technique: Noncontrast CT through the head with multiplanar reformats Comparison: CT head performed 06/03/2024 Findings: Brain: No acute hemorrhage. No acute infarct. No significant mass effect or midline shift. No gross evidence of a mass lesion or cerebral edema. Mild chronic senescent disease. Ventricles: No acute abnormality appreciated. Orbits, sinuses, mastoids: No acute abnormality appreciated. Calvarium and soft tissues: No acute abnormality appreciated. Impression: No acute intracranial abnormality appreciated. Please note that all CT scans at this facility use dose modulation, iterative reconstruction, and/or weight-based dosing when appropriate to reduce radiation dose to as low as reasonably achievable. Dictated by Amadeo Knight MD @ 01/23/2025 12:57:11 AM (Electronically Signed)
[2025-01-22 22:59] LABS: Hematocrit* 31.7 % (33.0-51.0); Hemoglobin* 10.2 gm/dL (12.0-16.0); Immature Granulocytes Abs Auto 0.10 K/uL (0.00-0.30); Immature Granulocytes Pct Auto 1.6 %; Mean Corpuscular HGB Conc 32 gm/dL (32-36); Mean Corpuscular Hemoglobin 27 pg (26-34); Mean Corpuscular Volume 85 fL (80-100); RDW Coefficient of Variation % 16.5 % (11.5-15.5); Red Blood Count* 3.74 m/uL (4.00-5.20); White Blood Count* 6.28 K/uL (4.50-11.00)
[2025-01-22 23:03] LABS: Lymphocytes Absolute Auto 0.90 K/uL (0.90-2.90); Slide Review Reflex No
[2025-01-22 23:15] LABS: Albumin* 4.0 g/dL (3.3-5.0); Chloride* 88 mmol/L (96-114); Sodium* 132 mmol/L (135-149)
[2025-01-22 23:16] LABS: Potassium* 3.5 mmol/L (3.6-5.1)
[2025-01-22 23:18] LABS: Alanine Aminotransferase* 20 U/L (4-35); Alkaline Phosphatase* 121 U/L (40-150); Anion Gap 10 mEq/L (7-15); Aspartate Amino Transferase* 41 U/L (12-35); Bilirubin Direct* 0.2 mg/dL (0.0-0.5); Bilirubin Total* 0.3 mg/dL (0.1-1.5); Blood Urea Nitrogen* 42 mg/dL (7-30); Calcium* 9.4 mg/dL (8.4-10.6); Carbon Dioxide* 34 mmol/L (20-32); Creatinine* 1.3 mg/dL (0.5-1.5); Est. Creatinine Clearance* 26.33; Estimated Glomerular Filt Rate 40 ml/min; Glucose* 260 mg/dL (60-115); Total Protein* 7.7 g/dL (6.0-8.3)
[2025-01-22 23:23] LABS: INR 2.75 (0.91-1.10); Prothrombin Time 30.3 Seconds
[2025-01-23] MEDS: 0.9 % SODIUM CHLORIDE 500 ML 500 ML IV (00:04)
[2025-01-23 00:07] VITALS: BP 153/70; PULSE 74; RESP 16; O2SAT 95
--- NOTE | 2025-01-23 00:38 | ED.GENADULT ---
HPI - General Adult General Date Seen: 01/23/25 Chief complaint: Weakness Stated complaint: poss TIA Time Seen by Provider: 01/22/25 22:10 History of Present Illness HPI narrative: Patient is an 89-year-old here with daughter and son for evaluation of a spell at home earlier tonight. Her son was actually with her when this happened. She says that she gets diarrhea frequently, she had gone to the bathroom because she had diarrhea. While she was sitting on the toilet she started to feel lightheaded, she felt like her vision got a little blurry. Her son noted that when she came back into the living room she ?didn't look good. She sat down the recliner and after 15-20 minutes she felt better. She now feels back to normal. They came in because of concerns about possible stroke. She does not have a history of stroke but she does have a history of coronary artery disease status post bypass, history of paroxysmal atrial fibrillation, aortic valve replacement with mechanical valve. She is anticoagulated on Coumadin. She also has a history of hypertension. She denies having any palpitations or chest pain, shortness of breath, headache, back or abdominal pain. No recent fevers, vomiting or diarrhea, black or bloody stools. Related Data Home Medications ?Medication ?Instructions ?Recorded ?Confirmed blood glucose control, normal 11/29/21 12/04/24 (Accu-Chek SmartView Control Solution) lancets (Accu-Chek Fastclix Lancet 11/29/21 12/04/24 Drum) nitroglycerin 0.4 mg sublingual 0.4 mg sublingual ONCE PRN 01/29/24 01/22/25 tablet (Nitrostat) irbesartan 75 mg tablet mg PO DAILY 05/06/24 12/04/24 Lactobacillus cap PO BID 06/24/24 12/04/24 no.51-Bifidobacterium no.4 50 billion cell capsule (up4 Probiotics Ultra) alendronate 70 mg tablet 70 mg PO QWEEK 09/16/24 01/22/25 Previous Rx's ?Medication ?Instructions ?Recorded blood sugar diagnostic (Accu-Chek #100 strips 11/09/22 SmartView Test Strips) pioglitazone 15 mg tablet 15 mg PO QDAY #90 tabs 01/17/24 sertraline 100 mg tablet 100 mg PO QDAY #90 tabs 01/17/24 warfarin 2 mg tablet See Rx Instructions PO QDAY #100 06/09/24 tabs levothyroxine 88 mcg tablet 88 mcg PO QDAY #90 tabs 07/15/24 furosemide 20 mg tablet 20 mg PO QDAY #90 tabs 07/31/24 cyanocobalamin (vitamin B-12) 1,000 mcg PO .3 tanvir a week #90 09/16/24 1,000 mcg tablet (Vitamin B-12) tabs potassium chloride 10 mEq 40 meq (4 x 10 mEq) PO QDAY #360 09/23/24 capsule,extended release caps hydrochlorothiazide 25 mg tablet 25 mg PO QDAY #90 tabs 09/24/24 metoprolol succinate 25 mg 25 mg PO QDAY #90 tabs 10/06/24 tablet,extended release 24 hr hydralazine 10 mg tablet 10 mg PO BID #180 tabs 10/27/24 atorvastatin 80 mg tablet 80 mg PO DAILY #90 tabs 12/01/24 metformin 500 mg tablet,extended 1,000 mg (2 x 500 mg) PO BID #360 12/08/24 release 24 hr tabs glipizide 10 mg tablet 10 mg PO BID #180 tabs 12/21/24 Allergies Allergy/AdvReac Type Severity Reaction Status Date / Time penicillin V Allergy Mild Hands and Verified 01/22/25 22:02 feet itchy,red Review of Systems Status of ROS: Reports: 10 or more systems reviewed and unremarkable except as noted in History and below [facility] Medical History Type 2 diabetes mellitus ?E11.9 - Type 2 diabetes mellitus without complications (ICD-10) Diarrhea ?R19.7 - Diarrhea, unspecified (ICD-10) ASCVD (arteriosclerotic cardiovascular disease) (~2005) ?I25.10 - Atherosclerotic heart disease of [place] coronary artery without angina pectoris (ICD-10) Hypertension ?I10 - Essential (primary) hypertension (ICD-10) Hyperlipidemia (08/16/09) ?E78.5 - Hyperlipidemia, unspecified (ICD-10) Hypothyroidism ?E03.9 - Hypothyroidism, unspecified (ICD-10) History of atrial fibrillation ?Z86.79 - Personal history of other diseases of the circulatory system (ICD-10) Asthma (08/16/09) ?J45.909 - Unspecified asthma, uncomplicated (ICD-10) Anxiety ?F41.9 - Anxiety disorder, unspecified (ICD-10) Osteoporosis ?M81.0 - Age-related osteoporosis without current pathological fracture (ICD-10) Thoracic compression fracture ?S22.000A - Wedge compression fracture of unspecified thoracic vertebra, initial encounter for closed fracture (ICD-10) Stress incontinence ?N39.3 - Stress incontinence (female) (male) (ICD-10) Diverticulosis (05/27/12) ?K57.90 - Diverticulosis of intestine, part unspecified, without perforation or abscess without bleeding (ICD-10) Adenomatous polyp of colon ?D12.6 - Benign neoplasm of colon, unspecified (ICD-10) Aortic stenosis ?I35.0 - Nonrheumatic aortic (valve) stenosis (ICD-10) Trochanteric bursitis ?M70.60 - Trochanteric bursitis, unspecified hip (ICD-10) Mass of right kidney ?N28.89 - Other specified disorders of kidney and ureter (ICD-10) Osteopenia (12/22/12) ?M85.80 - Other specified disorders of bone density and structure, unspecified site (ICD-10) Back pain ?M54.9 - Dorsalgia, unspecified (ICD-10) Fracture, humerus ?S42.309A - Unspecified fracture of shaft of humerus, unspecified arm, initial encounter for closed fracture (ICD-10) Surgical History History of cystoscopy ?Z98.890 - Other specified postprocedural states (ICD-10) Status post aortic valve replacement (12/2023) ?Z95.2 - Presence of prosthetic heart valve (ICD-10) 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) ?Z95.1 - Presence of aortocoronary bypass graft (ICD-10) Status post nasal surgery (08/16/09) ?Z98.890 - Other specified postprocedural states (ICD-10) Status post cataract extraction ?Z98.49 - Cataract extraction status, unspecified eye (ICD-10) Status post appendectomy (08/16/09) ?Z90.49 - Acquired absence of other specified parts of digestive tract (ICD-10) History of coronary artery stent placement (08/16/09) ?Z95.5 - Presence of coronary angioplasty implant and graft (ICD-10) History of colonoscopy ?Z98.890 - Other specified postprocedural states (ICD-10) Family History Sister Colon cancer, Onset Age: 84 Coronary artery disease Father Myocardial infarction, Onset Age: 51 Brother Myocardial infarction, Onset Age: 51 Mother Stroke, Onset Age: 97 Maternal Grandfather Diabetes Aunt Diabetes Social History Narrative: , lives alone on farm in [place], 6 living children Walk 1-1/2 miles on treadmill several times a week. Active lifestyle Never smoker Does not drink alcohol What is your current living situation?: I presently have a place to live Problems where you live: no known problems In the past 12 months, utilities in danger of being shut off: no In past 12 months, lack of transportation kept you from medical appts, meetings, work, or getting things needed for daily living: no In the past 12 mos, have been you worried that your food would run out before you had money to buy more?: never true In the past 12 mos, the food you bought just didn't last and you didn't have money to buy more?: never true Smoking Status: Never smoker Do you use any of these nicotine containing products: None Second hand tobacco smoke exposure: No How often do you have a drink containing alcohol: never How often do you have six or more drinks on one occasion: Never AUDIT-C Alcohol total score: 0 Non-prescribed substance use: denies use How often does anyone, including family, friends and others, physically hurt you: never How often does anyone, including family, friends and others, insult or talk down to you: never How often does anyone, including family, friends and others, threaten you with harm: never How often does anyone, including family, friends and others, scream or curse at you: never service: No Exam Narrative: Exam Narrative: Vital signs reviewed In general, alert, nontoxic elderly woman. She looks younger than her stated age. Head: Normocephalic, atraumatic. Eyes: Sclera clear. Pupils equal and reactive. ENT: Mucous membranes moist. Neck: Supple without adenopathy. Heart: Regular rate and rhythm with a systolic murmur and click, best heard over the right sternal border. Lungs: Clear. No increased work of breathing, crackles or wheezes. Abdomen: Soft, nontender to palpation. Extremities: Well perfused, pulses intact. No significant edema. Neurologic: Alert, conversant. Speech fluent, face symmetric. Moves all extremities equally. Cerebellar function intact by finger-nose testing. Skin: Warm, dry well perfused. Affect: Normal. Const: Vital Signs, click to edit/add: Vital Signs - 24 hr 01/22/25 21:56 01/23/25 00:07 Temperature 97.8 F Pulse Rate 74 Pulse Rate [Pulse Oximeter] 68 Respiratory Rate 16 16 Blood Pressure 153/70 H Blood Pressure [Ri ght Upper Arm] 151/81 H Pulse Oximetry 99 95 Oxygen Delivery Me thod Room Air Room Air Course Course ED Course: Following initial evaluation, patient had an EKG which shows a sinus rhythm, ventricular rate of 69. She has left ventricular hypertrophy with a widened QRS and repolarization abnormality, no significant change noted compared to prior EKGs earlier this year. I ordered a CT of the head and CT angiogram. Ordered labs is welcome. Diagnostic considerations would include vasovagal episode, arrhythmia, TIA, dehydration, anemia, orthostatic hypotension among others. Labs are reassuring. Her white blood cell count normal, hemoglobin is 10.2 which is her baseline. INR is therapeutic at 2.75, she does apparently have a history of hypokalemia but potassium today is 3.5, sodium is mildly low at 132. BUN 42, creatinine 1.3, which is up a little bit from her baseline. BUN is 42, there may be a component of dehydration. LFTs are unremarkable. Troponin pending. Troponin reviewed and normal. CT scan and CTA of the head read by Radiology as unremarkable, they note question of mild pulmonary edema in the partially visualized chest of the CT of the head and neck. Patient does not have any symptoms relating to this. Discussed briefly with Neurology, they agree that this sounds more near syncopal versus TIA. Patient continues to feel well without complaints. Discussed with her that I think most likely this represented a vasovagal episode, but if she is having further spells, develops new symptoms such as chest pain, shortness of breath, palpitations, fevers etcetera she should be seen again. She is comfortable with plan. Vital Signs Vital signs: Initial Vital Signs Temperature 97.8 F 01/22/25 21:56 Temperature Source Temporal Artery Scan 01/22/25 21:56 Pulse Rate 68 01/22/25 21:56 Respiratory Rate 16 01/22/25 21:56 Blood Pressure 151/81 H 01/22/25 21:56 Blood Pressure Mean 104 01/22/25 21:56 Pulse Oximetry 99 01/22/25 21:56 Oxygen Delivery Method Room Air 01/22/25 21:56 Vital Signs Temperature 97.8 F 01/22/25 21:56 Pulse Rate 68 01/22/25 21:56 Respiratory Rate 16 01/22/25 21:56 Blood Pressure 151/81 H 01/22/25 21:56 Pulse Oximetry 99 01/22/25 21:56 Oxygen Delivery Method Room Air 01/22/25 21:56 Temperature 97.8 F 01/22/25 21:56 Pulse Rate 74 01/23/25 00:07 Respiratory Rate 16 01/23/25 00:07 Blood Pressure 153/70 H 01/23/25 00:07 Pulse Oximetry 95 01/23/25 00:07 Oxygen Delivery Method Room Air 01/23/25 00:07 Medications Administered Medications: Discontinued Medications Generic Name Dose Route Start Last Admin Trade Name Freq PRN Reason Stop Dose Admin Sodium Chloride 500 mls @ 500 mls/hr 01/22/25 22:38 01/23/25 01:06 0.9 % Sodium Chloride 500 Ml IV 01/22/25 23:37 Infused .Q1H ONE Infusion Medical Decision Making Lab Data Lab results reviewed: Yes I reviewed the patient's lab results Labs: Lab Results 01/22/25 Range/Units 22:50 WBC 6.28 (4.50-11.00) K/uL RBC 3.74 L (4.00-5.20) m/uL Hgb 10.2 L (12.0-16.0) gm/dL Hct 31.7 L (33.0-51.0) % MCV 85 (80-100) fL MCH 27 (26-34) pg MCHC 32 (32-36) gm/dL RDW Coeff of Sher 16.5 H (11.5-15.5) % Plt Count 282 (140-440) K/uL Neut % (Auto) 68.1 (42.0-72.0) % Lymph % (Auto) 14.5 L (20-44) % Greene % (Auto) 11.8 H (0.0-11.0) % Eos % (Auto) 3.2 (0.0-7.0) % Baso % (Auto) 0.8 (0.0-3.0) % Neut # (Auto) 4.28 (1.7-7.0) K/uL Lymph # (Auto) 0.90 (0.90-2.90) K/uL Greene # (Auto) 0.70 (0.00-0.90) K/UL Eos # (Auto) 0.20 (0.00-0.50) K/uL Baso # (Auto) 0.05 (0.00-0.30) K/uL Abs Immat Gran (auto) 0.10 (0.00-0.30) K/uL Imm/Tot Granulo (auto) 1.6 % INR 2.75 H (0.91-1.10) Sodium 132 L (135-149) mmol/L Potassium 3.5 L (3.6-5.1) mmol/L Chloride 88 L (96-114) mmol/L Carbon Dioxide 34 H (20-32) mmol/L Anion Gap 10 (7-15) mEq/L BUN 42 H (7-30) mg/dL Creatinine 1.3 (0.5-1.5) mg/dL Estimated Creat Clear 26.33 Estimated GFR 40 ml/min Glucose 260 H (60-115) mg/dL Calcium 9.4 (8.4-10.6) mg/dL Magnesium 2.2 (1.5-2.6) mg/dL Total Bilirubin 0.3 (0.1-1.5) mg/dL Direct Bilirubin 0.2 (0.0-0.5) mg/dL AST 41 H (12-35) U/L ALT 20 (4-35) U/L Alkaline Phosphatase 121 (40-150) U/L Troponin I 0.02 (0.01-0.04) ng/mL Total Protein 7.7 (6.0-8.3) g/dL Albumin 4.0 (3.3-5.0) g/dL Imaging Data CT scan - head: Attestation: I have reviewed the pertinent imaging results. Radiologist's impression: Patient: MIRANDA CLARK Facility: [facility] Site . Site : 1935 Study: CT-Head Angio CTA HEAD W/ISOVUE 370 95CC-01/22/2025 11:56:15 PM Ordering Physician: Abe Hernandez Preliminary Report: Indication: Near syncope Technique: CT angiogram of the head and neck following 95 mL Isovue 370 IV contrast. Multiplanar MIP images obtained. Comparison: None Findings: Preliminary report, full report to follow. Impression: Question mild pulmonary edema/volume overload in the partially visualized chest. CTA head: No acute abnormality appreciated. CTA neck: No acute abnormality appreciated. Dictated by Amadeo Knight MD @ 01/23/2025 12:58:55 AM Read by: Amadeo Knight MD @01/23/2025 12:58:58 AM Patient: Miranda Clark MR#: [id number] : 1935 Acct:[id number] Loc: ED Service Date: 01/22/[address]: Ordering Physician: Mary Fish M.D. Date of Service: 01/22/25 Procedure(s): CT head/brain wo con Accession Number(s): [id number] cc: Mary Fish M.D.; Keshia Schilling M.D.~ For Patients: As a result of the Cures Act, medical imaging exams and procedure reports are released immediately into your electronic medical record. You may view this report before your referring provider. If you have questions, please contact your health care provider. Indication: Near syncope Technique: Noncontrast CT through the head with multiplanar reformats Comparison: CT head performed 06/03/2024 Findings: Brain: No acute hemorrhage. No acute infarct. No significant mass effect or midline shift. No gross evidence of a mass lesion or cerebral edema. Mild chronic senescent disease. Ventricles: No acute abnormality appreciated. Orbits, sinuses, mastoids: No acute abnormality appreciated. Calvarium and soft tissues: No acute abnormality appreciated. Impression: No acute intracranial abnormality appreciated. Please note that all CT scans at this facility use dose modulation, iterative reconstruction, and/or weight-based dosing when appropriate to reduce radiation dose to as low as reasonably achievable. Dictated by Amadeo Knight MD @ 01/23/2025 12:57:11 AM Discharge Plan Discharge Clinical Impression: Near syncope Patient Disposition: Home, Self-Care Condition: Improved Instructions: Near Syncope (ED) Additional Instructions: Your test 9 are reassuring. Your potassium is 3.5 which is essentially normal. Your head CT does not show any acute changes, and the angiogram does not show any areas of decreased blood flow to her brain. This episode sounds most like a vasovagal spell, but if you have recurrent episodes or develop new symptoms such as chest pain, palpitations, shortness of breath, fevers, or neurologic changes, return right away for re-evaluation. Otherwise, follow up with primary care in the next week for recheck. Prescriptions: No Action nitroglycerin [Nitrostat] 0.4 mg tablet, sublingual 0.4 mg sublingual ONCE PRN Rx Instructions: as a single dose; administer 5-10 minutes before situation known to precipitate angina attack irbesartan 75 mg tablet PO DAILY alendronate 70 mg tablet 70 mg PO QWEEK cyanocobalamin (vitamin B-12) [Vitamin B-12] 1,000 mcg tablet 1,000 mcg PO .3 tanvir a week Qty: 90 1RF Rx Instructions: Take 1 tablet 3 times a week for low B12 pioglitazone 15 mg tablet 15 mg PO QDAY Qty: 90 3RF sertraline 100 mg tablet 100 mg PO QDAY Qty: 90 3RF up4 Probiotics Ultra 50 billion cell capsule PO BID levothyroxine 88 mcg tablet 88 mcg PO QDAY Qty: 90 3RF (DME) blood glucose control, normal [Accu-Chek SmartView Contrl Dolores] Solution See Rx Instructions .Route Rx Instructions: As directed (DME) lancets [Accu-Chek Fastclix Lancet Drum] Misc See Rx Instructions .Route Rx Instructions: As directed (DME) Accu-Chek SmartView Test Strip Strip See Rx Instructions .ROUTE .COMPLEX Qty: 100 3RF Dose Instruction: TEST BLOOD SUGAR EVERY DAY (DUE FOR RECHECK IN CLINIC IN . PLAN FASTING LABS) Rx Instructions: TEST BLOOD SUGAR EVERY DAY (DUE FOR RECHECK IN CLINIC IN . PLAN FASTING LABS) warfarin 2 mg tablet See Rx Instructions PO QDAY Qty: 100 3RF Protocol: Dose Management Condition: Saturday Dose/Route: 4 mg Instruction: 2 x 2 mg tablets Condition: Saturday Dose/Route: 4 mg Instruction: 2 x 2 mg tablets Condition: Saturday Dose/Route: 4 mg Instruction: 2 x 2 mg tablets Condition: Saturday Dose/Route: 4 mg Instruction: 2 x 2 mg tablets Condition: Dose/Route: 4 mg Instruction: 2 x 2 mg tablets Condition: Saturday Dose/Route: 4 mg Instruction: 2 x 2 mg tablets Condition: Saturday Dose/Route: 4 mg Instruction: 2 x 2 mg tablets Protocol Text: Adjustment Start Date: Saturday01/12/25 INR Value: 2.5 INR Date: 01/11/25 Recheck Date: 01/26/25 Rx Instructions: 2 mg Q Sat and , and 3 mg Q ---- orally every day; furosemide 20 mg tablet 20 mg PO QDAY Qty: 90 0RF potassium chloride 10 mEq capsule, extended release 40 meq PO QDAY Qty: 360 1RF hydrochlorothiazide 25 mg tablet 25 mg PO QDAY Qty: 90 1RF metoprolol succinate 25 mg tablet extended release 24 hr 25 mg PO QDAY Qty: 90 3RF hydralazine 10 mg tablet 10 mg PO BID Qty: 180 3RF atorvastatin 80 mg tablet 80 mg PO DAILY Qty: 90 2RF metformin 500 mg tablet extended release 24 hr 1,000 mg PO BID Qty: 360 0RF glipizide 10 mg tablet 10 mg PO BID Qty: 180 0RF Follow Up/Referrals: Keshia Schilling MD [Primary Care Provider, Family Practice] Stand Alone Forms: [employer] Info Instructions
[2025-01-23 01:25] VITALS: BP 173/84; PULSE 73; RESP 16; O2SAT 95
== END 2025-01-23 01:26 | disposition home or self-care (01) ==
PROVIDERS: Emergency Provider Emergency Medicine; PCP Family Medicine
DX: R55 Syncope and collapse (principal)
CPT/HCPCS: 36415; 70450; 70496; 70498; 80048; 80076; 83735; 84484; 85025; 85610; 93005; 99284; 99285; J7030; Q9967

== ENCOUNTER 2025-03-11 10:11 | Outpatient (CLI) | payer MEDICARE, BC, SELFPAY | END 2025-03-11 10:12 | disposition home or self-care (01) | LOC: NFLDREF 03-17 04:45 | PROVIDERS: PCP Family Medicine; Referring Provider Family Medicine; Visit Provider Family Medicine | DX: E78.00 Pure hypercholesterolemia, unspecified (principal); E11.9 Type 2 diabetes mellitus without complications; E03.9 Hypothyroidism, unspecified; I10 Essential (primary) hypertension; E55.9 Vitamin D deficiency, unspecified | CPT/HCPCS: 80053; 80061; 82043; 82306; 82570; 82607; 82728; 84443 ==